=== PATIENT | male | born 1945 | race African-American/Black ===

== ENCOUNTER 2020-02-03 00:41 | Outpatient (CLI) | payer MEDICARE, SELFPAY ==
[2020-02-04 03:00] LABS: SARS-CoV-2 RNA PCR Negative
== END 2020-02-03 00:42 | disposition home or self-care (01) ==
LOC: ANHCOVIDDT 00:42
PROVIDERS: PCP Internal Medicine; Visit Provider Internal Medicine Gastroenterology
DX: Z01.812 Encounter for preprocedural laboratory examination (principal); Z20.828 Contact with and (suspected) exposure to other viral communicable diseases
CPT/HCPCS: 87635; C9803; U0003

== ENCOUNTER 2020-02-05 01:16 | Day surgery (SDC) | payer MEDICARE, SELFPAY ==
[2020-02-01 14:57] VITALS: BMI 15.3
[2020-02-05 09:46] VITALS: BP 155/77; PULSE 61; RESP 20; TEMP 36.4; O2SAT 96; BMI 19.3
--- NOTE | 2020-02-05 09:59 | WPDANESEPPF ---
Anes - Initial Pre Proc Eval Procedure: Operation Date: 02/05/20 11:00 Proposed Procedures p Screening Colonoscopy - Clovis Holland MD Date/Time: 02/05/20 09:59 Surgeon: lCovis Holland MD Pre Op Diagnosis: neoplasm screening Patient Data Age: 75 Gender: M Height: 6 ft 6 in Weight: 76 kg Last Vital Signs Temp 36.4 C L 02/05/20 09:46 Pulse 61 02/05/20 09:46 Resp 20 02/05/20 09:46 BP 155/77 H 02/05/20 09:46 Pulse Ox 96 02/05/20 09:46 Allergies Allergy/AdvReac Type Severity Reaction Status Date / Time No Known Allergies Allergy Unknown Verified 02/05/20 09:45 Home Medications Medication Instructions Recorded Confirmed Type latanoprost 1 drp DAILY 02/01/20 02/01/20 History Patient hx anesthesia problems: none Family hx anesthesia problems: none PMFSH Past Medical History Medical History Chronic kidney disease, stage 3 (moderate) Chronic kidney disease, stage 3 (moderate) (01/07/19) Elevated prostate specific antigen [PSA] Essential (primary) hypertension Primary open-angle glaucoma, bilateral, stage unspecified Unspecified iridocyclitis Family History Family History Father Carcinoma of colon Patient's father is Family history of malignant neoplasm Mother Patient's mother is Family history unknown Social History Social History Smoking packs per day: 0.5 Smoking cigarettes per day: 10.0 Years smoked: 50 Smoking pack-years: 25.00 Smoking status: Current every day smoker Tobacco type: cigarettes Alcohol intake: current Substance use: unknown Substance use type: does not use Living arrangements: with family Spiritual care concerns: No Anes - Eval Final PreProcedure Day of Procedure 02/05/20 09:59 Patient weight: thin Heart: regular rate and rhythm Lungs: clear to auscultation Airway: Mallampati scale class II and special considerations poor dentition Neurological: alert and oriented Last oral intake: >/= 8 hours ASA classification: III Emergent: no Anesthetic plan: proceed Anesthesia type and monitoring: general GIVS and standard monitoring Informed Consent: The patient's anesthetic plan and its attendant risks and benefits were discussed with the patient/family/POA. Questions were solicited and answers provided to the satisfaction of the patient/family/POA.
[2020-02-05] MEDS: LACTATED RINGERS 1,000 ML 150 ML IV CONT (10:06)
--- NOTE | 2020-02-05 10:36 | PM.HPGS ---
History of Present Illness History of Present Illness Consent: Risks, benefits, and alternatives have been discussed and questions answered. Patient agrees to proceed with procedure. Chief complaint: neoplasm screening Narrative: Ulysses Lane is a 75 year old male here for first screening colonoscopy Review of Systems Constitutional: Constitutional: Denies headache(s) and Denies weakness Eyes: Eyes: Denies blurry vision ENT: Reports Normal hearing present, Denies headache(s) and Denies neck pain Cardiovascular: Cardiovascular: Denies chest pain and Denies dyspnea Respiratory: Respiratory: Denies dyspnea Gastrointestinal: Gastrointestinal: Reports no additional gastrointestinal complaints Genitourinary: Genitourinary: Denies dysuria Musculoskeletal: Musculoskeletal: Denies neck pain Integumentary/Breasts: Skin/Breast: Denies dry skin Neurologic: Reports Normal hearing present, Denies headache(s) and Denies weakness Psychiatric: Psychiatric: Denies anxiety Endocrine: Endocrine: Denies change in body appearance Hematologic/Lymphatic: Hematologic/Lymphatic: Denies easy bleeding Allergic/Immunologic: Allergic/Immunologic: Denies urticaria PMFSH Past Medical History Medical History Chronic kidney disease, stage 3 (moderate) Chronic kidney disease, stage 3 (moderate) (01/07/19) Elevated prostate specific antigen [PSA] Essential (primary) hypertension Primary open-angle glaucoma, bilateral, stage unspecified Unspecified iridocyclitis Family History Family History Father Carcinoma of colon Patient's father is Family history of malignant neoplasm Mother Patient's mother is Family history unknown Social History Social History Smoking packs per day: 0.5 Smoking cigarettes per day: 10.0 Years smoked: 50 Smoking pack-years: 25.00 Smoking status: Current every day smoker Tobacco type: cigarettes Alcohol intake: current Substance use: unknown Substance use type: does not use Living arrangements: with family Spiritual care concerns: No Meds Home Medications and Allergies Home Medications Medication Instructions Recorded Confirmed Type latanoprost 1 drp DAILY 02/01/20 02/01/20 History Allergies Allergy/AdvReac Type Severity Reaction Status Date / Time No Known Allergies Allergy Unknown Verified 02/05/20 09:45 Vital Signs Vital Signs - 24 hr 11/06/20 09:46 Temperature 97.5 F L Pulse Rate 61 Respiratory Rate 20 Blood Pressure 155/77 H Pulse Oximetry 96 Exam Const: General: comfortable and no acute distress HENMT: General nose exam: Normal nares present Eyes: General: appearance normal, both eyes and all related structures Neck: Neck: no JVD Resp: Auscultation: clear to auscultation bilaterally Cardio: Rate: regular rate Rhythm: regular rhythm GI: Inspection: non-distended GI Palp: Yes Soft to palpation Skin: General skin exam: normal color Neuro: General: gait normal Speech: normal speech Extrem: General: normal to inspection Psych: Mental Status: mental status grossly normal Assessment and Plan Assessment and plan (1) Colon cancer screening: Code(s): Z12.11 - Encounter for screening for malignant neoplasm of colon Status: Acute Assessment and Plan: will proceed with colonoscopy
[2020-02-05 11:07] VITALS: BP 133/82; PULSE 57; RESP 20; O2SAT 96
[2020-02-05 11:17] VITALS: BP 144/93; PULSE 64; RESP 20; O2SAT 96
[2020-02-05 11:27] VITALS: BP 154/94; PULSE 53; RESP 20; O2SAT 96
== END 2020-02-05 12:00 | disposition home or self-care (01) ==
PROVIDERS: PCP Internal Medicine; Visit Provider Internal Medicine Gastroenterology
PROC: 0DJD8ZZ Inspection of Lower Intestinal Tract, Via Natural or Artificial Opening Endoscopic (ICD-10-PCS; CPT 45378; principal; 2020-02-05 11:00)
DX: Z12.11 Encounter for screening for malignant neoplasm of colon (principal); D12.5 Benign neoplasm of sigmoid colon; D12.3 Benign neoplasm of transverse colon; I12.9 Hypertensive chronic kidney disease with stage 1 through stage 4 chronic kidney disease, or unspecified chronic kidney disease; N18.30 Chronic kidney disease, stage 3 unspecified; R97.20 Elevated prostate specific antigen [PSA]; H40.1130 Primary open-angle glaucoma, bilateral, stage unspecified; F17.210 Nicotine dependence, cigarettes, uncomplicated; Z80.0 Family history of malignant neoplasm of digestive organs
CPT/HCPCS: 45385; 88305; J2704; J7120

== ENCOUNTER 2020-08-10 12:58 | Outpatient (CLI) | payer MEDICARE, SELFPAY ==
--- NOTE | ~2020-08-10 | XR_ITS ---
XR chest 2V DATE: 08/10/2020 13:20 INDICATION: Abnormal weight loss TECHNIQUE: PA and lateral views COMPARISON: 11/10/2018 PA and lateral chest FINDINGS: Bilateral hyperinflation and relative flattening the diaphragm, consistent with COPD. No pu lmonary infiltrate or consolidation, pleural effusion or pulmonary vascular congestion or pneumothora x. Heart size is within normal range. Is aortic calcification. No hilar or mediastinal enlargement. Degenerative spurring of the thoracic spine. Diffuse osteopenia. IMPRESSION: COPD Reviewed, dictated and finalized at location A. IMPRESSION: COPD
== END 2020-08-10 12:59 | disposition home or self-care (01) ==
PROVIDERS: PCP Internal Medicine; Visit Provider Internal Medicine
DX: R63.4 Abnormal weight loss (principal); J44.9 Chronic obstructive pulmonary disease, unspecified
CPT/HCPCS: 71046

== ENCOUNTER 2020-08-15 08:55 | Outpatient (CLI) | payer MEDICARE, SELFPAY ==
--- NOTE | ~2020-08-15 | MR_ITS ---
EXAMINATION: MR brain/brain stem wo con DATE: 08/15/2020 10:06 INDICATION: Other amnesia. TECHNIQUE: Magnetic resonance imaging (MRI) of the brain and brainstem was performed without intraven ous contrast. Sequences included sagittal and axial T1-weighted FSE, axial diffusion-weighted FS EPI, axial T2*-weighted GRE, axial T2-weighted FLAIR Propeller, and axial T2-weighted Propeller. Apparent diffusion coefficient (ADC) maps were created. COMPARISON: None. FINDINGS: There are scattered areas of nonspecific increased T2-weighted signal intensity in the cere bral white matter. There is a small area of chronic cystic encephalomalacia in the left parietal lobe deep white matter. There is no intracranial hemorrhage, acute infarction, or abnormal intracranial m ass lesion. The ventricles are normal in size. There is mucosal thickening in the paranasal sinuses. There are likely changes of right ocular lens replacement surgery. There is a trace right mastoid eff usion. IMPRESSION: 1. Small area of chronic encephalomalacia in the left parietal lobe deep white matter. 2. Moderate nonspecific cerebral white matter disease, which likely represents chronic small vessel i schemic disease. Reviewed, dictated and finalized at location A. IMPRESSION: 1. Small area of chronic encephalomalacia in the left parietal lobe deep white matter. 2. Moderate nonspecific cerebral white matter disease, which likely represents chronic small vessel ischemic disease.
== END 2020-08-15 08:56 | disposition home or self-care (01) ==
PROVIDERS: PCP Internal Medicine; Visit Provider Internal Medicine
DX: R41.3 Other amnesia (principal); R90.82 White matter disease, unspecified; G93.89 Other specified disorders of brain
CPT/HCPCS: 70551

== ENCOUNTER 2020-10-17 14:11 | Outpatient (CLI) | payer MEDICARE, SELFPAY ==
--- NOTE | ~2020-10-17 | US_ITS ---
EXAMINATION: US arterial ankle brachial ind DATE: 10/17/2020 15:12 INDICATION: Right lower limb pain TECHNIQUE: Segmental pressures and plethysmographic and Doppler waveforms of the brachial and lower e xtremity arteries were obtained. COMPARISON: None. FINDINGS: Right and left brachial artery pressures of 151 mm Hg and 140 mm Hg, respectively, are concordant (no rmal difference <= 30 mmHg). The right ankle-brachial index (REJI) is 0.79 (normal >= 0.9-1.0). The right great toe-brachial index (TBI) is 0.51 (normal >= 0.65). Arterial Doppler waveforms demonstrate borderline delayed upstroke at the right posterior tibial artery with brisk systolic upstroke in the right dorsalis pedis artery. The left REJI is 1.05. The left TBI is 0.54. Arterial Doppler waveforms demonstrate brisk systolic pea ks of both the left posterior tibial and dorsalis pedis arteries. IMPRESSION: 1. Arterial occlusive disease to the bilateral lower limbs with mildly decreased bilateral TBIs and m ildly decreased right REJI. Reviewed, dictated and finalized at location A. IMPRESSION: 1. Arterial occlusive disease to the bilateral lower limbs with mildly decrease d bilateral TBIs and mildly decreased right REJI.
== END 2020-10-17 14:12 | disposition home or self-care (01) ==
LOC: ANHIMG 14:13
PROVIDERS: PCP Internal Medicine; Visit Provider Internal Medicine
DX: I77.1 Stricture of artery (principal)
CPT/HCPCS: 93922

== ENCOUNTER 2020-10-25 12:51 | Outpatient (CLI) | payer MEDICARE, SELFPAY ==
--- NOTE | 2020-10-25 | ECHO_ITS ---
Patient Info Name: Ulysses Lane Age: 75 years : 1945 Gender: Male Ht: 78 in Wt: 147 lbs BSA: 1.89 m2 HR: 50 bpm BP: 145 / 85 mmHg Heart Rhythm: Bradycardia Exam Date: 10/25/2020 1:16 PM Exam Location: [facility] Patient Status: Outpatient Admit Date: 10/25/2020 Staff Ordering Physician: ABDIRIZAK MILLER Furniture Sales Consultant: Vani Yap RDCS Attending Provider: ABDIRIZAK MILLER Exam Type: CA echo doppler w bubble study Study Info Indications - CVA Complete two-dimensional, color flow and Doppler transthoracic echocardiogram is performed with agitated saline. BUBBLE STUDY LAST IMAGE. Contrast/Agitated Saline Contrast/Ag. Saline: Agitated Saline Amount: --- ml Administered By: Susy Guerra RN New IV Access: Dorsum of Hand and Left Summary 1. Left ventricular chamber dimension is normal. 2. Left ventricular systolic function is normal, estimated at 60-65%. 3. The left ventricular diastolic function is grade II diastolic dysfunction. 4. E/e' 11 is mildly elevated. 5. Left atrial chamber dimension is mildly enlarged. 6. Right atrial chamber dimension is mildly enlarged. 7. There is mild aortic valve sclerosis. 8. There is mild to moderate aortic valve regurgitation. 9. There is trace mitral valve regurgitation. 10. There is trace tricuspid valve regurgitation. 11. No pulmonary hypertension, estimated pulmonary arterial systolic pressure is 23 mmHg. Left Ventricle E/e' 11 is mildly elevated. Left ventricular chamber dimension is normal. Left ventricular systolic function is normal, estimated at 60-65%. The left ventricular diastolic function is grade II diastolic dysfunction. Right Ventricle Right ventricular chamber dimension is normal. Right ventricular systolic function is normal. Left Atria Left atrial chamber dimension is mildly enlarged. Right Atria Right atrial chamber dimension is mildly enlarged. Atrial Septum Agitated saline injection opacified right cardiac chambers without shunt to left cardiac chambers. Intact interatrial septum visualized by agitated saline imaging. Aortic Valve The aortic valve is trileaflet. There is mild aortic valve sclerosis. There is no aortic valve stenosis. There is mild to moderate aortic valve regurgitation. Pulmonic Valve There is no pulmonic regurgitation. Mitral Valve There is no mitral valve stenosis. There is trace mitral valve regurgitation. Tricuspid Valve There is trace tricuspid valve regurgitation. No pulmonary hypertension, estimated pulmonary arterial systolic pressure is 23 mmHg. Pericardium/Pleural There is no pericardial effusion. Inferior Vena Cava Normal inferior vena cava with >50% collapse upon inspiration consistent with normal right atrial pressure, 5 mmHg. Aorta The aortic root size at the sinus of Valsalva is normal. Left Ventricular Outflow Tract Name Value Normal LVOT 2D LVOT Diameter 2.2 cm LVOT Doppler LVOT Peak Gradient 4 mmHg LVOT Mean Gradient 2 mmHg LVO
== END 2020-10-25 12:52 | disposition home or self-care (01) ==
PROVIDERS: PCP Internal Medicine
DX: I63.9 Cerebral infarction, unspecified (principal); I34.0 Nonrheumatic mitral (valve) insufficiency
CPT/HCPCS: 93306; 96375

== ENCOUNTER 2020-11-01 11:37 | Outpatient (CLI) | payer MEDICARE, SELFPAY ==
--- NOTE | ~2020-11-01 | US_ITS ---
EXAMINATION: US carotid duplex BI DATE: 11/01/2020 12:15 INDICATION: Left parietal lobe infarct. Cerebrovascular accident. TECHNIQUE: Grayscale, color Doppler, and pulsed Doppler images of the cervical carotid arteries were obtained. The degree of vessel stenosis is placed in one of the following categories: normal, <50%, 5 0-69%, >=70% but less than near-occlusion, near-occlusion, or total occlusion. Note that percent sten osis relative to normal distal artery lumen diameter is indirectly measured from velocity measurement s as described by Rodney, et al. Radiology 2003; 229:340-346. COMPARISON: None. FINDINGS: RIGHT: The right common carotid artery (CCA) peak systolic velocity (PSV) is 97 cm/s. The right internal car otid artery (ICA) PSV is 52 cm/s. The right ICA end-diastolic velocity (EDV) is 14 cm/s. The right IC A/CCA PSV ratio is 0.5. Grayscale and color Doppler images yield an estimate of <50% diameter reducti on from plaque in the ICA. There is antegrade flow in the right vertebral artery. LEFT: The left CCA PSV is 77 cm/s. The left ICA PSV is 42 cm/s. The left ICA EDV is 14 cm/s. The left ICA/C CA PSV ratio is 0.5. Grayscale and color Doppler images yield an estimate of <50% diameter reduction from plaque in the ICA. There is antegrade flow in the left vertebral artery. IMPRESSION: 1. <50% stenosis in the right internal carotid artery. 2. <50% stenosis in the left internal carotid artery. Reviewed, dictated and finalized at location A.
== END 2020-11-01 11:38 | disposition home or self-care (01) ==
PROVIDERS: PCP Internal Medicine; Visit Provider Nurse Practitioner Gerontology
DX: I63.9 Cerebral infarction, unspecified (principal); I65.23 Occlusion and stenosis of bilateral carotid arteries
CPT/HCPCS: 93880

== ENCOUNTER 2020-12-06 14:30 | Outpatient (RCR) | payer MEDICARE, SELFPAY ==
--- NOTE | 2020-11-08 16:42 | STOPEVAL ---
Speech Therapy Initial Evaluation: Thank you for referring Ulysses Lane to [facility].? The patient is scheduled to be seen for therapy?2x/week for 4 weeks. Please review, sign, date and return this plan of care KYRA. I agree with and certify that the following plan of care is medically necessary. Referring Physician Date Attending Provider: Janet Bills, STAPLE PROCESSING MACHINE OPERATOR Outpatient Past Medical History Neurological History Hx Dementia Yes Hx Other Neurological Disorders Yes: per pt's sister, pt has dementia Cardiovascular History Hx Hypertension Yes Hx Peripheral Vascular Disease Yes Respiratory History Hx Respiratory Disorders No Significant History Gastrointestinal History Hx Gastrointestinal Disorders No Significant History Genitourinary History Hx Benign Prostatic Hyperplasia Yes Hx Other Genitourinary Disorders Yes: stage 3 kidney disease Musculoskeletal History Hx Other Musculoskeletal Disorders Yes: muscular ached Hematological History Hx Hematological Disorders No Significant History Endocrine History Hx Endocrine Disorders No Significant History HEENT History Hx Glaucoma Yes Integumentary History Hx Skin Disorders No Significant History Reproductive History Hx Reproductive Disorders No Significant History Psychosocial History Hx Psychiatric Disorders No Significant History Pain History History of Any Previous or Ongoing No Significant History Instance of Pain Anesthesia History Hx Anesthesia Reactions No Significant History Prior Level of Function Home Setting Home Type House Cargiver Responsibilities Comment Pt lives with his sister. Sister does cooking, cleaning, shopping, & driving. 1 Niece lives there as well. Prior Cognition/Communication Prior Cognitive Function Memory Impaired Comments Additional Prior Level of Function pt expresses that he has lost Comments 90% Language Evaluation Verbal Expression Automatic Cued Speech (% Accuracy (0-100 100 )) Open Ended Cued Speech (% Accuracy (0- 100 100)) WH Questions (% Accuracy (0-100)) 80 Confrontational Naming (% Accuracy (0- 90 100)) Confrontational Naming Comments simple level naming; slow/ delayed retrieval Stating Object Function (% Accuracy (0- 80 100)) Comments Related to Verbal Expression Pt exhibited severely impaired divergent naming ability. Cognitive Evaluation Orientation/Memory Assessment Immediate Memory 30 Query Text:% Accuracy Recent Memory 80 Query Text:% Accuracy Remote Memory
--- NOTE | 2020-11-24 15:21 | PCSTNOTE ---
Patient called & cancelled scheduled appointment this date due to illness.
--- NOTE | 2020-12-01 07:50 | PCSTNOTE ---
On 11-29-20, pt did not show for scheduled appt
--- NOTE | 2020-12-01 13:37 | PCSTNOTE ---
Patient did not show up for scheduled appointment this date.
--- NOTE | 2020-12-08 14:00 | PCSTNOTE ---
Patient did not show up for scheduled appointment this date which was his third or fourth no show or cancellation. His sister was called and notified that he would be discharged at this time in accordance with the attendance policy. She verbalized ok .
--- NOTE | 2020-12-08 14:03 | PCSTNOTE ---
SPEECH THERAPY DISCHARGE: Attending Provider: Janet Bills, POWER CUTTING MACHINE OPERATOR Patient:Ulysses Lane Date of :1945 On initial evaluation in ST the pt presented with the following: This 75 year old presents for a speech therapy with a diagnosis of memory loss. Pt was brought to evaluation by his sister who opted to leave and not attend evaluation. She stated he has dementia but this problem may be related to a CVA but she is unsure. When the pt was asked if he had a stroke, he replied, I don't even know what that is . Pt was tested using portions of the [place] Information Processing Assessment and portions of the [place] Diagnostic Aphasia Evaluation. Overall, results revealed severe immediate & remote memory deficits but mild deficit in other areas of memory/orientation such as recent memory/temporal orientation; moderate impairment was exhibited in biographical & environmental orientation. Pt demonstrated mildly impaired ability to solve simple problems but severe decline in sequencing. Categorization and sorting were within functional limits. Processing was found to be delayed as pt was noted to have abnormally long pauses after questions and instructions. Accuracy of questioning was mildly impaired. Processing may be exacerbated by anomia which was also exhibited. ST was recommended 2x/week for 4 weeks; however, upon discussing treatment options with the pt, he stated he was not interested in returning for treatment. When the pt's sister returned, results and recommendations were discussed with her. She was also informed the pt stated he did not wish to return. She became visibly annoyed with the pt. Pt remained silent as she attempted to persuade him. In the end ST sessions were scheduled. She was instructed to discuss with him the potential benefits of returning to . She was also informed that pt's outcomes will potentially suffer if he lacks interest. The pt returned inconsistently during the 4 weeks of treatment which focused in verbal expression as well as memory/orientation, problem solving, and organizational thought. Very limited progression was exhibited. Pt did not attend the re evaluation appointment. His sister was called and notified that he would be discharged due to lack of attendance and limited progress. She stated, ok . Patient will be discharged at this time. Patient?s initial visit was on 11/08/2020 13:30 and he had a total of 4 visits. The goals have been partially met. Thank you for referring this patient to [facility]. Please review, sign, date and return this discharge summary KYRA. I have been updated about the patient's current status and I agree with discharge from the above service at this time. Referring Physician Date
== END 2020-12-08 17:45 | disposition home or self-care (01) ==
LOC: ANHST 14:30
PROVIDERS: PCP Internal Medicine; Visit Provider Nurse Practitioner Gerontology
DX: R41.3 Other amnesia (principal); R48.8 Other symbolic dysfunctions
CPT/HCPCS: 92523; 97129; 97130

== ENCOUNTER 2021-08-08 12:17 | Outpatient (RCR) | payer MEDICARE, SELFPAY ==
--- NOTE | 2021-08-09 11:19 | STOPEVAL ---
Thank you for referring Ulysses Lane to [facility].? Speech Therapy was indicated and offered however patient declined several times. No further Speech Therapy will be attempted. I agree with and certify that the following plan of care is medically necessary. Referring Physician Date Attending Provider: Janet Bills, GALVANIZER Referring Provider: Janet Bills, GALVANIZER Therapy Assessment Status Assessment Status Assessment Status Evaluation Outpatient Past Medical History Neurological History Hx Dementia Yes Hx Other Neurological Disorders Yes: per pt's sister, pt has dementia Cardiovascular History Hx Hypertension Yes Hx Peripheral Vascular Disease Yes Respiratory History Hx Respiratory Disorders No Significant History Gastrointestinal History Hx Gastrointestinal Disorders No Significant History Genitourinary History Hx Benign Prostatic Hyperplasia Yes Hx Other Genitourinary Disorders Yes: stage 3 kidney disease Musculoskeletal History Hx Other Musculoskeletal Disorders Yes: muscular ached Hematological History Hx Hematological Disorders No Significant History Endocrine History Hx Endocrine Disorders No Significant History HEENT History Hx Glaucoma Yes Integumentary History Hx Skin Disorders No Significant History Reproductive History Hx Reproductive Disorders No Significant History Psychosocial History Hx Psychiatric Disorders No Significant History Pain History History of Any Previous or Ongoing No Significant History Instance of Pain Anesthesia History Hx Anesthesia Reactions No Significant History Evaluation Information Problem Diagnosis CVA Subjective Information Patient has history of Query Text:As Reported By Patient/ Vascular Dementia and CVA. Family When asked why he was here today, he stated, I don't know. Pain Assessment Timing of Pain Assessment Timing of Pain Assessment Assessment Self Report Self Report Pain Level 0 Pain Score Pain Score 0: Self Report Language Evaluation Auditory Comprehension Body Part Identification (% Accuracy (0- 100 100)) Object Identification (% Accuracy (0-100 100 )) Picture Identification (% Accuracy (0- 100 100)) Simple Yes/No Questions (% Accuracy (0- 100 100)) Moderate Yes/No Questions (% Accuracy (0 100 -100)) Complex Yes/No Questions (% Accuracy (0- 80 100)) Auditory Comprehension One-Step 100 Directives (% Accuracy (0-100)) Auditory Comprehension of Two-Step 100 Directives (% Accuracy (0-100)) Auditory Comprehension of Complex 80
== END 2021-08-09 14:00 | disposition home or self-care (01) ==
LOC: ANHST 12:17
PROVIDERS: PCP Internal Medicine; Referring Provider Nurse Practitioner Gerontology; Visit Provider Nurse Practitioner Gerontology
DX: I63.9 Cerebral infarction, unspecified (principal); F01.50 Vascular dementia, unspecified severity, without behavioral disturbance, psychotic disturbance, mood disturbance, and anxiety; R41.89 Other symptoms and signs involving cognitive functions and awareness
CPT/HCPCS: 92523

== ENCOUNTER 2021-11-02 11:08 | Outpatient (CLI) | payer MEDICARE, SELFPAY ==
--- NOTE | ~2021-11-02 | US_ITS ---
EXAMINATION:US venous doppler LE LT INDICATION:Left leg swelling TECHNIQUE: Multiple grayscale, color flow and Doppler images of the left lower extremity deep venous systems were obtained and reviewed. COMPARISON:No prior studies for comparison. FINDINGS: The common femoral, superficial femoral and popliteal veins demonstrate normal respiratory variation, augmentation and compressibility. Color flow is also seen within the posterior tibial, pe roneal, greater saphenous and profunda veins. IMPRESSION: 1: No lower extremity deep venous thrombosis. Reviewed, dictated and finalized at location A.
--- NOTE | ~2021-11-02 | XR_ITS ---
EXAMINATION: XR ankle LT min 3V, XR foot LT min 3V DATE: 11/02/2021 19:11 INDICATION: Left foot and ankle pain TECHNIQUE: 1. Anteroposterior, mortise, additional oblique and lateral view of the left ankle were obtained. 2. Dorsoplantar, two oblique and lateral views of the left foot were obtained. COMPARISON: None. FINDINGS: Alignment of the left foot and ankle is normal. No fracture or osteochondral lesion. 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 No erosions to suggest an inflammatory arthrit is. Small Achilles and plantar calcaneal spurs. No ankle joint effusion. Prominent soft tissue swelli ng circumferentially about the left ankle and extending over the dorsum of the hindfoot. IMPRESSION: 1. 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 No acute osseous abnormal ities. Reviewed, dictated and finalized at location A. IMPRESSION: 1. 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 No acute osseous abnormalities.
[2021-11-02 13:08] LABS: Uric Acid 4.2 mg/dL (3.5-8.5)
== END 2021-11-02 11:09 | disposition home or self-care (01) ==
PROVIDERS: PCP Internal Medicine; Visit Provider Nurse Practitioner
DX: M19.072 Primary osteoarthritis, left ankle and foot (principal); M10.9 Gout, unspecified; R22.42 Localized swelling, mass and lump, left lower limb
CPT/HCPCS: 36415; 73610; 73630; 84550; 93971

== ENCOUNTER 2021-11-21 15:30 | Outpatient (RCR) | payer MEDICARE, SELFPAY ==
--- NOTE | 2021-10-19 08:59 | PTOPEVAL ---
PHYSICAL THERAPY EVALUATION AND PLAN OF CARE Thank you for referring Ulysses Lane to [facility].? The patient is scheduled to be seen for therapy? 1x/week for 5weeks. Please review, sign, date and return this plan of care KYRA. I agree with and certify that the following plan of care is medically necessary. Referring Physician Date Attending Provider: Brian Bustamante, DO Diagnosis unsteady on feet Additional Evaluation Detail A and O x2 (oriented to person and place; required assist for year and does not know situation). [facility]. Subjective Information Ulysses is here today to Query Text:As Reported By Patient/ address balance deficits. Family States he is not sure why he is here except that maybe he is wobbling at home. States he has not fallen. Prior Level of Function Activity Level (Last 3 Months) Occupation retired from [employer]ance Right Cooking No Cleaning Yes Laundry Yes Shopping No Driving No Home Setting Home Type House Environmental Barriers Stairs, 2-4 Living Situation With Relatives Cargiver Responsibilities Comment lives with sister Mobility Assistive Devices (Used Last 3 None Months) Pain Assessment Timing of Pain Assessment Timing of Pain Assessment Assessment Self Report Self Report Pain Level 0 Pain Score Pain Score 0: Self Report Balance Assessment Gonzales Balance Assessment Sitting to Standing Independent w/out Hands Unsupported Stance Ability Safely- 2 minutes Sitting Unsupported, Feet on Floor Safely- 2 minutes Standing to Sitting Safely, Minimal Hand Use Transfer Ability Safely, Minimal Hand Use Unsupported Stance- Eyes Closed Supervision, 10 seconds Unsupported Stance- Feet Together Independent, 1 minute Reaching Forward while Standing Safely, 5 inches client service supervisor Object From Floor Supervision Look Behind Shoulder - Standing Turns Sideways Only Turning 360 Degrees Turns Bilateral, < 4 secs Unsupported Stance, Alternating Feet on (I)- 8 Steps in 20 secs Stair Unsupported Tandem Stance Small Step- 30 seconds Unilateral Leg Stance Lifts Leg/Holds > 3 secs GONZALES Balance Evaluation Total Score (/56 47 points) Time Up Go (TUG) Timed Up and Go Test (TUG) (Seconds) 13 Assistive Devices None 5 Time Sit to Stand Time in
--- NOTE | 2021-11-21 16:44 | PTOPEVAL ---
PHYSICAL THERAPY PROGRESS REPORT AND DISCHARGE SUMMARY. Thank you for referring Ulysses Lane to [facility].? The patient is to be discharged from skilled therapy services at this time. Please review, sign, date and return this plan of care KYRA. I agree with and certify that the following plan of care is medically necessary. Referring Physician Date Attending Provider: Brian Bustamante DO *PT Outpatient Evaluation Start: 10/19/21 Evaluation Information Diagnosis unsteady on feet Subjective Information Pt states his exercises are Query Text:As Reported By Patient/ going well, he reports doing Family them twice daily. He states he is less wobbly when walking . He declines having any falls Pain Assessment Pain Score 0: Self Report Balance Assessment Gonzales Balance Assessment GONZALES Balance Evaluation Total Score (/56 50/56 Comments Initially: 47/56 11/21/21: 50/56 Time Up Go (TUG) Timed Up and Go Test (TUG) (Seconds) 17 Assistive Devices None Comments Initially: 13s 11/21/21: 17s 5 Time Sit to Stand Time in Seconds 29 5 Time Sit to Stand Comments Initially: 21.71s, required Query Text:Normative Data: If Greater cues to continue performing Than 15 Seconds, 74% Increase Risk for test; would forget Recurrent Falls instructions and required cues 11/21/21: 29s, cues requires to continue performing test Gait Assessment Ambulation Assistive Devices None Gait Pattern Crouched Gait Other Gait Observations lack of terminal hip extension and knee extension during ambulation 2 Minute Walk Total Distance Walked (feet) 250 2 Minute Walk Gait Speed Score (feet/s) 2.08 2 Minute Walk Test Comments Initially: 351ft 11/21/21: 250ft Stair Climbing Assessment Stair Climbing Assistive Devices Railings Technique Alternating Steps Stair Climbing Direction Both Up and Down Stair Climbing Ability Independent Safety Assessment Factors Affecting Safety Confusion/Disorientation PT Clinical Summary Ulysses presents to therapy today for his progress report following 5 visits of skilled therapy to treat his diagnosis of unsteadiness on feet. Today he demonstrates an increased time needed to complete the 5xSTS and TUG, he also albert
== END 2021-11-22 11:13 | disposition home or self-care (01) ==
LOC: ANHPT 15:30
PROVIDERS: PCP Internal Medicine; Visit Provider Internal Medicine
DX: R26.81 Unsteadiness on feet (principal)
CPT/HCPCS: 97110; 97112; 97162; 97530

== ENCOUNTER 2022-06-22 13:25 | Outpatient (CLI) | payer MEDICARE, SELFPAY ==
--- NOTE | ~2022-06-22 | CT_ITS ---
EXAMINATION: CT brain wo con DATE: 06/22/2022 13:54 INDICATION: Dizziness TECHNIQUE: Computed tomography (CT) of the head was performed without intravenous contrast. The mA wa s adjusted according to patient size. Iterative reconstruction technique was employed. Exam dose: 60 5.33 mGy-cm total exam DLP. COMPARISON: 08/15/2020 MRI brain/brainstem FINDINGS: There is intracranial cerebral atherosclerosis. There is nonspecific diminished attenuation cerebral white matter, likely due to chronic small vessel ischemic changes. There is moderate cerebral and cerebellar volume loss. No intracranial mass lesion or hemorrhage or cerebrovascular accident, midline shift or mass effect e ffect is noted. No subdural or epidural hematoma. No fracture or bone destruction of the cranial vault. There is mild soft tissue thickening of the ethmoid air cells and left maxillary sinus The paranasal sinuses are otherwise unremarkable. IMPRESSION: Cerebral atherosclerosis and chronic small vessel ischemic changes of the cerebral white matter Moderate cerebral and cerebellar atrophy No acute intracranial finding Reviewed, dictated and finalized at Location A. Reviewed, dictated and finalized at location A.
== END 2022-06-22 13:26 | disposition home or self-care (01) ==
PROVIDERS: PCP Internal Medicine; Visit Provider Nurse Practitioner Family
DX: R42 Dizziness and giddiness (principal); I67.2 Cerebral atherosclerosis
CPT/HCPCS: 70450

== ENCOUNTER 2022-07-08 13:42 | Emergency (ER) | payer MEDICARE, SELFPAY ==
--- NOTE | ~2022-07-08 | CT_ITS ---
EXAMINATION: CT lumbar spine wo con DATE: 07/08/2022 15:40 INDICATION: low back pain . TECHNIQUE: Computed tomography (CT) of the lumbar spine was performed without intravenous contrast. A utomated exposure control and iterative reconstruction technique were employed. The dose-length produ ct was 463.87 mGy-cm. COMPARISON: CT abdomen and pelvis 02/22/2015. FINDINGS: 5 nonrib-bearing lumbar-type vertebral bodies. Decreased mineralization. Stable moderate he ight loss at L4. Multilevel stable concave endplate deformities as can be seen with osteoporosis. Ped icles intact. Normal vertebral body alignment. Multilevel degenerative disc changes with large bridgi ng osteophytes. Multilevel moderate facet arthropathy. Mild central canal stenosis at L3-4. Moderate bilateral neural foraminal narrowing at L4-5. 3.4 cm fusiform abdominal aortic aneurysm. IMPRESSION: No acute fracture or traumatic malalignment in the lumbar spine. 3.4 cm abdominal aortic aneurysm, re commend follow-up ultrasound aorta in 3 years. Reviewed, dictated and finalized at location K. IMPRESSION: No acute fracture or traumatic malalignment in the lumbar spine. 3.4 cm abdomin al aortic aneurysm, recommend follow-up ultrasound aorta in 3 years.
[2022-07-08 13:44] VITALS: BP 162/89; PULSE 60; RESP 18; TEMP 36.5; O2SAT 98
[2022-07-08 13:53] VITALS: BP 155/82; PULSE 60; RESP 18; O2SAT 100
[2022-07-08 14:37] VITALS: BP 148/81; PULSE 55; RESP 18; O2SAT 100
--- NOTE | 2022-07-08 15:20 | ED.GENADULT ---
HPI - General Adult General Chief complaint: Back Pain/Injury Stated complaint: low back pain Time Seen by Provider: 07/08/22 14:27 History of Present Illness HPI narrative: 77-year-old male presented to the ED for evaluation of low back pain after having a fall into his chair. Patient was at home when he began complaining of low back pain. Patient states he does have increased pain with ambulation and movement of his right leg. Patient denies striking his head denies loss of consciousness. Patient had told family that he did not have any falls but he told me that he felt into the chair while sitting down. Related Data Home Medications Medication Instructions Recorded Confirmed cyanocobalamin (vitamin B-12) 1,000 mcg PO DAILY 04/03/21 07/19/22 1,000 mcg tablet memantine 10 mg tablet 10 mg PO BID 04/03/21 07/19/22 donepezil 5 mg tablet 5 mg PO QHS 08/24/21 07/19/22 aspirin 81 mg tablet,delayed 81 mg PO DAILY 06/14/22 07/19/22 release (Adult Aspirin Regimen) cetirizine 10 mg tablet 10 mg PO DAILY PRN 06/14/22 07/19/22 ginkgo biloba leaf extract 120 tablet PO 06/14/22 07/19/22 mg-choline bitartrate 110 mg tablet ([employer] Memory Support) Allergies Allergy/AdvReac Type Severity Reaction Status Date / Time No Known Allergies Allergy Unknown Verified 07/19/22 13:05 Review of Systems Review of Systems: All systems reviewed & are unremarkable except as noted in HPI and below PMFSH Past Medical History Medical History Chronic kidney disease, stage 3 (moderate) Chronic kidney disease, stage 3 (moderate) (01/07/19) Colon cancer screening Elevated prostate specific antigen [PSA] Essential (primary) hypertension Primary open-angle glaucoma, bilateral, stage unspecified Unspecified iridocyclitis Family History Family History Father Carcinoma of colon Patient's father is Family history of malignant neoplasm Mother Patient's mother is Family history unknown Social History Social History Years smoked: 50 Smoking status: Current every day smoker Tobacco type: cigarettes Alcohol intake: current Alcohol use details: social Substance use: never Substance use type: does not use Lack of Transportation: YES Lack of Food: Never True Current Housing: I Have Housing Concerned About Future Housing: No Difficulty Paying Gas/Electric Bills: No Difficulty Paying for Meds: No Currently Unemployed: No Education: High School Diploma/GED Difficulty w/ Childcare or Family Care: No Living arrangements: with family Spiritual care concerns: No Exam Narrative: APPEARANCE: Well appearing, no pain, no distress, well-nourished. HEAD: normocephalic, atraumatic. EYES: PERRLA/EOMI, conjunctivae clear. THROAT: Pharynx clear, no exudate. NECK: Supple. No adenopathy, no masses. RESPIRATORY: Airway patent, respirations nonlabored. Clear to auscultation bilaterally, no rales, rhonchi, wheezing. CARDIOVASCULAR: Regular rate and rhythm without murmurs rubs or gallops. ABDOMINAL: Soft, nontender, nondistended, normal bowel sounds MUSCULOSKELETAL: Decreased range of motion of right leg secondary to back pain NEURO: Alert. Cranial nerves II through XII intact. Patient denies any numbness or weakness neurologically intact SKIN: Warm, dry. Normal Color Course Course Emergency Course: 77-year-old male presenting to ED for low back pain. CT lumbar spine was ordered to rule out compression fracture. CTs were negative for acute fracture. Patient had some minor improvement with medication. Patient was willing to attempt to walk with a walker. Patient was able to ambulate at his baseline with no issues. Patient and family were updated on the results of the imaging and on the need for follow-up for
[2022-07-08 16:09] VITALS: BP 161/87; PULSE 60; RESP 18; O2SAT 100
[2022-07-08] MEDS: HYDROcodone/acetaminophen (*CRX) 5-325 MG TABLET 1 TAB PO (16:10)
[2022-07-08 18:02] VITALS: BP 165/84; PULSE 59; RESP 20; O2SAT 99
== END 2022-07-08 19:43 | disposition home or self-care (01) ==
PROVIDERS: Emergency Provider Emergency Medicine; PCP Internal Medicine
DX: S39.92XA Unspecified injury of lower back, initial encounter (principal); I12.9 Hypertensive chronic kidney disease with stage 1 through stage 4 chronic kidney disease, or unspecified chronic kidney disease; N18.30 Chronic kidney disease, stage 3 unspecified; Z79.82 Long term (current) use of aspirin; F17.210 Nicotine dependence, cigarettes, uncomplicated; I71.40 Abdominal aortic aneurysm, without rupture, unspecified; W18.39XA Other fall on same level, initial encounter
CPT/HCPCS: 72131; 99284; A9270

== ENCOUNTER 2022-07-22 18:55 | Emergency (ER) | payer MEDICARE, SELFPAY ==
--- NOTE | 2022-07-22 19:05 | ED.BACK ---
HPI - Back Pain/Injury General Chief Complaint: Back Pain/Injury Stated Complaint: back pain Time Seen by Provider: 07/22/22 19:05 Source: patient Mode of arrival: ambulatory Limitations: no limitations History of Present Illness HPI Narrative: patient is a 77-year-old male that presents with low back pain after potential fall on 07/08. Patient was seen in the ED the day of the fall and had a CT of his spine done with no fractures identified. Patient was given Flexeril and Brigantine. Patient saw primary care provider 07/19 and had scripts refilled. Patient has been going to physical therapy for 1 week, but still reports pain is severe. per sister he has been taking Flexeril, Brigantine, ibuprofen but still stating is having pain. concern for potential kidney or urinary involvement, denies any blood in his urine, burning with urination with increased frequency. patient still able to ambulate unassisted, bend over and stand back up without assistance. denies any fever, pain shooting down legs, or loss of bowel or bladder MD elicited complaint: back pain Related Data Home Medications Medication Instructions Recorded Confirmed cyanocobalamin (vitamin B-12) 1,000 mcg PO DAILY 04/03/21 07/22/22 1,000 mcg tablet memantine 10 mg tablet 10 mg PO BID 04/03/21 07/22/22 donepezil 5 mg tablet 5 mg PO QHS 08/24/21 07/22/22 aspirin 81 mg tablet,delayed 81 mg PO DAILY 06/14/22 07/22/22 release (Adult Aspirin Regimen) cetirizine 10 mg tablet 10 mg PO DAILY PRN Congestion 06/14/22 07/22/22 ginkgo biloba leaf extract 120 1 tablet PO DAILY 06/14/22 07/22/22 mg-choline bitartrate 110 mg tablet ([facility]) docusate sodium 100 mg capsule 100 mg PO DAILY 07/22/22 07/22/22 (Colace) Allergies Allergy/AdvReac Type Severity Reaction Status Date / Time No Known Allergies Allergy Unknown Verified 07/22/22 19:08 Review of Systems Review of Systems: All systems reviewed & are unremarkable except as noted in HPI and below Constitutional: Constitutional: Denies body ache(s), Denies chills, Denies fatigue, Denies fever(s), Denies headache(s), Denies malaise and Denies weakness Eyes: Eyes: Denies blurry vision, Denies irritation and Denies loss of vision ENT: Denies otalgia, Denies headache(s), Denies nasal discharge, Denies sinus pain and Denies sore throat Cardiovascular: Cardiovascular: Denies chest pain, Denies irregular heart rhythm and Denies dyspnea Respiratory: Respiratory: Denies dyspnea Gastrointestinal: Gastrointestinal: Denies abdominal pain, Denies melena, Denies hematochezia, Denies diarrhea, Denies nausea and Denies vomiting Musculoskeletal: Musculoskeletal: Reports back pain, Denies myalgias and Denies arthralgias Integumentary/Breasts: Skin/Breast: Denies pruritus and Denies rash Neurologic: Denies headache(s), Denies loss of vision and Denies weakness Psychiatric: Psychiatric: Reports no additional psychiatric complaints Endocrine: Endocrine: Denies fatigue PMF Past Medical History Medical History Chronic kidney disease, stage 3 (moderate) Chronic kidney disease, stage 3 (moderate) (01/07/19) Colon cancer screening Elevated prostate specific antigen [PSA] Essential (primary) hypertension Primary open-angle glaucoma, bilateral, stage unspecified Unspecified iridocyclitis Family History Family History Father Carcinoma of colon Patient's father is Family history of malignant neoplasm Mother Patient's mother is Family history unknown Social History Social History Years smoked: 50 Smoking status: Current every day smoker Tobacco type: cigarettes Alcohol intake: current Alcohol use details: social Substance use: never Substance use type: does not use Lack of Transportation: Y
[2022-07-22 19:18] VITALS: BP 162/87; PULSE 56; RESP 16; TEMP 35.9; O2SAT 99
== END 2022-07-22 19:39 | disposition home or self-care (01) ==
PROVIDERS: Emergency Provider Nurse Practitioner Family; PCP Family Medicine
DX: M54.50 Low back pain, unspecified (principal); I12.9 Hypertensive chronic kidney disease with stage 1 through stage 4 chronic kidney disease, or unspecified chronic kidney disease; N18.30 Chronic kidney disease, stage 3 unspecified; F17.210 Nicotine dependence, cigarettes, uncomplicated
CPT/HCPCS: 81003; 99213; G0463

== ENCOUNTER 2022-08-07 14:30 | Outpatient (RCR) | payer MEDICARE, SELFPAY ==
--- NOTE | 2022-07-17 14:58 | PTOPEVAL1 ---
Assessment and note entered by Kat Vinson, PT Evaluation Information Assessment Status Evaluation Diagnosis dizziness and giddiness/ unsteady walking Onset about one month ago Subjective Information Ulysses has dementia; caregiver for pt, Dory reports: he has swaying when he walks, reports he is unsteady; has had a few falls in the past 2 months; have a wheeled walker, but he will not use it; goes 3 days/wk to [facility]-- does some exercises and activities there; has a [employer] membership--was walking track with his caregiver, but lately has not been agreeable to go there; EMR-- he had one fall/LBP on 07-08-22 and went to ER, CT of lumbar spine report states DDD, large bridging osteophytes and moderat facet arthropathy Reported Pain Level Pain Score 4: Self Report back and R hip Assessment PT Clinical Summary Ulysses has the diagnosis of dizziness/giddiness. He had ER visit recently due to fall and LBP, with lumbar CT reporting changes in his spine. He has dementia--was cooperative, able to follow simple commands, and had some word finding problems. He lives with his sister, and caregiver Dory brought him into today's appt. With the evaluation, he did not report any vestibular words of dizziness, spinning, but used wobbly, unsteady and legs give out. He has decreased walking balance, decreased leg strength and Tinetti balance/gait score of 22/28. His R hamstring is tighter than his L and caused him pain. Skilled PT services are indicated for therapeutic exercises and activities to increase LE strength, gait and balance skills, to improve safety with mobility, modalities for back and hip pain and education to pt and caregiver for HEP. Plan of Care Interventions Gait Training,Hot Pack/Cold Pack,Manual Therapy, Neuro Re-education,Patient/Caregiver Educati, Therapeutic Activities,Therapeutic Exercise PT Services Indicated Yes Treatment Frequency and 2x/wk for 3 weeks Duration These treatments will address the objective and functional deficits as defined above. The patient will be advanced safely and appropriately in order for the patient to progress towards his/her prior level of function. Additional exercises will be introduced and as well as a comprehensive home exercise program upon discharge, if needed, ?to ensure carryover of functional gains achieved i
--- NOTE | 2022-08-02 13:45 | PCPTNOTE ---
Pt no showed this morning, [employer] called and left message that he could be seen at a later time today.
--- NOTE | 2022-08-07 15:06 | PTOPDC ---
Assessment and note entered by Kat Vinson, PT Evaluation Information Assessment Status Discharge Diagnosis dizziness and giddiness/ unsteady walking Onset about one month ago Subjective Information Ulysses and caregiver report: have not had any falls; do not use the walker or cane--do not need them; Reported Pain Level Pain Score Mild Pain: Surya Johnson in back and R hip Assessment PT Clinical Summary Ulysses has received 5 PT sessions, He did not show for one appointment. Compared to the initial evaluation: 2 minute walking test distance increased by 75'; Acosta balance score increased by 4 points to 26/28; 5 reps sit/stand time, worse by 6 seconds, but balance was better--thighs did not touch the mat; he and caregiver have been educated on HEP and he has not had any falls; He continues to report pain in his back and R hip. The goals were partially met Discharge PT services. Plan of Care PT Services Indicated No
== END 2022-08-08 10:28 | disposition home or self-care (01) ==
LOC: ANHPT 14:30
PROVIDERS: PCP Internal Medicine; Visit Provider Nurse Practitioner Family
DX: H81.10 Benign paroxysmal vertigo, unspecified ear (principal)
CPT/HCPCS: 97110; 97162; 97530; 99199

== ENCOUNTER 2022-10-25 13:30 | Outpatient (RCR) | payer MEDICARE, SELFPAY ==
--- NOTE | 2022-09-26 11:56 | PTOPEVAL1 ---
Assessment and note entered by Juan David Patterson, PT Evaluation Information Assessment Status Evaluation Diagnosis Unsteadiness on feet. Subjective Information Patient reports he is not sure why he is here. Patient has a PMH of dementia. According to the patient's last MD report he had 2 falls and home and him and caregiver were agreeable to physical therapy and using an assistive device. The patient did not come with any assistive device to the evaluation and caregiver was not around to talk to therapist during or after the evaluation. Reported Pain Level Pain Score Mild Pain: London Johnson Additional Pain Score Comments patient reports mild pain in his back. Assessment PT Clinical Summary Mr. Lane is a 77 year old male coming into the clinic with a diagnosis of unsteadiness on his feet. Patient does have 4/5 THANIA LE strength, a very slow tiffani, and gait dysfunction seen with walking. Tinetti score of 19/28 which is indicative of a high risk for falls. Patient was also here in therapy about 6 weeks ago and has not accepted recommendation to use an assistive device. Prognosis is poor secondary to decreased safety awareness secondary to dementia. Physical therapy will work on balance and gait pattern. Plan of Care Interventions Gait Training,Manual Therapy,Neuro Re-education, Patient/Caregiver Education,Therapeutic Activities, Therapeutic Exercise,Ultrasound Other Interventions cupping, taping, and IASTM PT Services Indicated Yes Treatment Frequency and 1-2x/wk for 4 weeks Duration These treatments will address the objective and functional deficits as defined above. The patient will be advanced safely and appropriately in order for the patient to progress towards his/her prior level of function. Additional exercises will be introduced and as well as a comprehensive home exercise program upon discharge, if needed, ?to ensure carryover of functional gains achieved in the clinic. This treatment plan has been reviewed and agreement upon by the patient.
--- NOTE | 2022-09-26 11:56 | OPREHPOC ---
Outpatient Therapy Plan of Care This is a Multidisciplinary Plan of Care that may contain components documented by all disciplines (PT, OT, and ST.) PT Problem 1 PT Problem #1 Knowledge Deficit PT Goal 1 Goal caregiver independent with HEP Target Visit 6 PT Problem 2 PT Problem #2 Impaired Balance PT Goal 1 Goal 22/28 Tinetti score Target Visit 6 PT Problem 3 PT Problem #3 Impaired Functional Mobil PT Goal 1 Goal reports of no falls Target Visit 6 PT Goal 2 Goal Patient using the least restrictive assistive device Target Visit 6
--- NOTE | 2022-10-25 14:06 | PTOPDC ---
Assessment and note entered by Juan David Patterson, PT Evaluation Information Assessment Status Evaluation Diagnosis Unsteadiness on his feet Subjective Information Patient reports he has had no falls, is currently not in any pain and reports no issues with his functional mobility. Patient does have dementia and is a poor historian. Reported Pain Level Pain Score 0: Self Report Pain Score 0: Self Report Assessment PT Clinical Summary Ulysses is a 77 year old male coming into the clinic with a diagnosis of unsteadiness on his feet. Patient was evaluated on 09/25/22 and has attended 8 sessions. The patient has met his balance goal going from a high fall risk to a moderate risk for falls. Self reports no falls in the last month and strength in his LE's were not improved, but not diminished either. Physical therapist feels any falls are probably safety awareness issues and further therapy would not help that. Recommended using assistive device and according to chart review previous physical therapist did, but patient declines. Discharge from physical therapy. Plan of Care PT Services Indicated No
== END 2022-10-30 11:05 | disposition home or self-care (01) ==
LOC: ANHPT 13:30
PROVIDERS: PCP Family Medicine; Visit Provider Nurse Practitioner Family
DX: R26.81 Unsteadiness on feet (principal)
CPT/HCPCS: 97110; 97112; 97161; 97530

== ENCOUNTER 2023-02-28 18:02 | Emergency (ER) | payer MEDICARE, SELFPAY ==
[2023-02-28] VITALS (10 sets, daily range): BP systolic 140–158; BP diastolic 63–85; PULSE 57–67; RESP 12–28; TEMP 36.5–37; O2SAT 97–100
--- NOTE | ~2023-02-28 | CT_ITS ---
EXAMINATION: CT abdomen pelvis w con DATE: 02/28/2023 19:54 INDICATION: Lower abdominal pain TECHNIQUE: Computed tomography (CT) of the abdomen and pelvis was performed with 100 mL Omnipaque-350 intravenous contrast. Automated exposure control and iterative reconstruction technique were employe d. The dose-length product was 387.13 mGy-cm. COMPARISON: 02/22/2015 FINDINGS: Mild dependent atelectasis in bilateral lower lobes. Calcified nodule at the right posterior sulcus a nd splenic calcification consistent with old granulomatous disease. Heart size is normal. Atheroscler otic coronary artery calcification. No pericardial or pleural effusion. Liver, gallbladder, pancreas, bilateral adrenal glands and kidneys are normal. Woodson catheter within the decompressed bladder. The re is a moderate to large amount of stool throughout the colon with 9.2 x 8.8 cm ball of stool at rec bridgett suggestive of constipation with fecal impaction. There is some mild wall thickening at the rectum and stranding in the perirectal fat consistent with secondary stercoral colitis. Small bowel and erika endix are normal. No free intraperitoneal gas or fluid. No pathologically enlarged abdominal or pelvi c lymphadenopathy. Chronic L2 and L4 compression fractures with moderate lumbar spondylosis. There ar e bridging osteophytes at multiple levels in the lower thoracic spine consistent with diffuse idiopat hic skeletal hyperostosis (DISH). IMPRESSION: 1. Likely constipation with fecal impaction including 9 cm ball of stool at rectum and associated palomo rcoral colitis. Reviewed, dictated and finalized at location A. ASSEMBLER IMPRESSION: 1. Likely constipation with fecal impaction including 9 cm ball of stool at rec bridgett and associated stercoral colitis.
--- NOTE | 2023-02-28 18:39 | ED.ABDPAIN ---
HPI - Abdominal Pain General Chief Complaint: Abdominal Pain Stated Complaint: ABD PAIN, URINARY SYMPTOMS Time Seen by Provider: 02/28/23 18:27 Source: RN notes reviewed and old records reviewed Mode of arrival: ambulatory Limitations: dementia History of Present Illness HPI narrative: This is a 78 year old male with history of dementia who presents for evaluation of abdominal pain. He has family at bedside to given history as patient has dementia. He is oriented to person. His family reports patient came home yesterday complaining of abdominal pain and constipation. She gave his miralax and patient has been having diarrhea since taking miralax. She reports patient is still complaining of abdominal pain so they went to urgent care. She also reports patient is having issues with urinary retention so she has been trying to get evaluation for UTI. Related Data Home Medications Medication Instructions Recorded Confirmed cyanocobalamin (vitamin B-12) 1,000 mcg PO DAILY 04/03/21 09/11/22 1,000 mcg tablet memantine 10 mg tablet 10 mg PO BID 04/03/21 09/11/22 donepezil 5 mg tablet 5 mg PO QHS 08/24/21 09/11/22 aspirin 81 mg tablet,delayed 81 mg PO DAILY 06/14/22 09/11/22 release (Adult Aspirin Regimen) cetirizine 10 mg tablet 10 mg PO DAILY PRN Congestion 06/14/22 09/11/22 ginkgo biloba leaf extract 120 1 tablet PO DAILY 06/14/22 09/11/22 mg-choline bitartrate 110 mg tablet ([facility]) docusate sodium 100 mg capsule 100 mg PO DAILY 07/22/22 09/11/22 (Colace) brimonidine 0.2 %-timolol 0.5 % 1 drp EACH EYE Q12H 09/10/22 09/11/22 eye drops (Combigan) terbinafine HCl 250 mg tablet 250 mg PO DAILY 09/10/22 09/11/22 Allergies Allergy/AdvReac Type Severity Reaction Status Date / Time No Known Allergies Allergy Unknown Verified 02/28/23 18:22 Review of Systems Review of Systems: ROS unobtainable: Yes unobtainable due to medical condition (dementia) PMFSH Past Medical History Medical History Chronic kidney disease, stage 3 (moderate) Chronic kidney disease, stage 3 (moderate) (01/07/19) Colon cancer screening Elevated prostate specific antigen [PSA] Essential (primary) hypertension Primary open-angle glaucoma, bilateral, stage unspecified Unspecified iridocyclitis Family History Family History Father Carcinoma of colon Patient's father is Family history of malignant neoplasm Mother Patient's mother is Family history unknown Social History Social History Years smoked: 50 Smoking status: Current every day smoker Tobacco type: cigarettes Alcohol intake: current Alcohol use details: social Substance use: never Substance use type: does not use Lack of Transportation: YES Lack of Food: Never True Current Housing: I Have Housing Concerned About Future Housing: No Difficulty Paying Gas/Electric Bills: No Difficulty Paying for Meds: No Currently Unemployed: No Education: High School Diploma/GED Difficulty w/ Childcare or Family Care: No Living arrangements: with family Spiritual care concerns: No Exam Const: General: alert Nutritional Appearance: well nourished Other: oriented to person HENMT: Head: normal to inspection Mouth: Yes Normal oral and palatal mucosa present, Yes lip normal and Yes moist mucous membranes Eyes: EOM: EOMs intact bilaterally Chest: Chest palpation & inspection: normal inspection of the chest Resp: Effort & Inspection: normal respiratory effort Auscultation: clear to auscultation bilaterally Cardio: Rate: regular rate Rhythm: regular rhythm Heart sounds: no murmurs GI: GI Palp: Yes Soft to palpation, Yes Tenderness to palpation present (GI) (patient seems to grimace with palpation), No Guarding due to p
[2023-02-28 19:07] LABS: Basophils Absolute Auto 0.1 K/mm3 (0.0-0.1); Basophils Percent Auto 0.8 % (0.2-1.2); Eosinophils Absolute Auto 0.4 K/mm3 (0-0.3); Eosinophils Percent Auto 5.4 % (0-4.4); Hematocrit 41.4 % (42.0-52.0); Hemoglobin 13.4 g/dL (14.0-18.0); Immature Granulocyte Absolute 0.02 K/mm3 (0.00-0.031); Immature Granulocyte Percent A 0.3 % (0-0.5); Lymphocytes Absolute Auto 1.37 K/mm3 (0.9-3.2); Lymphocytes Percent Auto 21.2 % (18.3-44.2); Mean Corpuscular HGB Conc 32.4 g/dl (32-36); Mean Corpuscular Hemoglobin 29.7 pg (26-34); Mean Corpuscular Volume 91.8 fl (80-100); Mean Platelet Volume 10.6 fl (7.4-10.4); Monocytes Absolute Auto 0.7 K/mm3 (0.1-0.6); Monocytes Percent Auto 10.2 % (2.6-8.5); Neutrophils Percent Auto 62.1 % (45.5-73.1); Platelet Count Result 167 k/mm3 (150-375); Red Blood Count 4.51 M/mm3 (4.6-6.20); Red Cell Distribution Width 13.6 % (11.5-14.5); White Blood Count 6.5 K/mm3 (4.5-10.0)
[2023-02-28 19:17] LABS: Alanine Aminotransferase 35 U/L (6-50); Albumin Level 4.1 g/dL (3.5-5.1); Alkaline Phosphatase 130 U/L (38-126); Anion Gap 11 mmol/L (8-16); Aspartate Amino Transferase 57 U/L (17-59); Bilirubin,Total 0.6 mg/dL (0.2-1.3); Blood Urea Nitrogen 25 mg/dL (9-20); Calcium 9.5 mg/dL (8.4-10.2); Carbon Dioxide 26 mmol/L (22-30); Chloride 105 mmol/L (98-107); Estimated CRCL calculation 49 ml/min; Estimated Glomerular Filt Rate > 60; Glucose 93 mg/dL (65-110); Lipase 81 U/L (23-300); Potassium 4.2 mmol/L (3.4-5.0); Sodium 142 mmol/L (137-145)
[2023-02-28 19:18] LABS: Lactic Acid Reflex 2.1 mmol/L (0.7-2.0)
[2023-02-28 19:30] LABS: Appearance Urine Clear (Clear); Bacteria Urine None Seen /hpf; Bilirubin Urine 2+ (Negative); Blood Urine Negative (Negative); Color Urine Dark Yellow (Yellow); Glucose Urine UA Negative (Negative); Ketones Urine Trace mg/dL (Negative); Leukocyte Esterase Ur Negative LEU/UL (Negative); Nitrate Urine Negative (Negative); Non Pathogenic Casts 0-2; Protein Urine 1+ mg/dL (Negative); Specific Grav Ur 1.033 (1.001-1.035); Squamous Epithelial Cell Urine None seen /hpf (Few); WBC Urine 0-5 /hpf; pH Urine 5.5 (5.0-9.0)
[2023-02-28 19:31] LABS: Add Urine Microscopic? YES
[2023-02-28 20:14] LABS: SARS-CoV-2 RNA PCR Negative (Negative)
[2023-02-28] MEDS: BISACODYL 10 MG SUPPOSITORY RECTAL (21:35)
--- NOTE | 2023-02-28 21:35 | PC.NURSE ---
Garcia placed by techrafaela. Dr. Blair in room and states she did not want garcia placed. Garcia cath removed.
[2023-02-28 22:01] LABS: Reflex Lactic Acid Yes or No Add Lactic
== END 2023-02-28 22:44 | disposition home or self-care (01) ==
PROVIDERS: Emergency Provider General Practice; PCP Family Medicine
DX: K56.41 Fecal impaction (principal); F03.90 Unspecified dementia, unspecified severity, without behavioral disturbance, psychotic disturbance, mood disturbance, and anxiety; I12.9 Hypertensive chronic kidney disease with stage 1 through stage 4 chronic kidney disease, or unspecified chronic kidney disease; N18.30 Chronic kidney disease, stage 3 unspecified; F17.210 Nicotine dependence, cigarettes, uncomplicated; Z20.822 Contact with and (suspected) exposure to COVID-19
CPT/HCPCS: 36415; 51702; 74177; 80053; 81001; 83605; 83690; 85025; 87635; 99284; A9270; Q9967

== ENCOUNTER 2023-03-27 16:40 | Observation (INO) | payer MEDICARE, MEDICAID, SELFPAY ==
[2023-03-27] VITALS (9 sets, daily range): BP systolic 125–143; BP diastolic 75–96; PULSE 61–93; RESP 15–24; TEMP 36.5; O2SAT 96–99
--- NOTE | ~2023-03-27 | CT_ITS ---
EXAMINATION: CTA brain carotid DATE: 03/30/2023 22:28 INDICATION: Transient alteration of awareness. TECHNIQUE: Computed tomographic angiography (CTA) of the head was performed with 100 mL Omnipaque-350 intravenous contrast. CTA of the neck was performed with intravenous contrast. Automated exposure co ntrol and iterative reconstruction technique were employed. The dose-length product was 1254.34 mGy-c m. Maximum intensity projection and volume rendered 3D-reconstructions were created by the technologi st on a separate workstation. COMPARISON: Head CT 03/27/2023, brain MRI 03/30/2023 FINDINGS: HEAD CTA: There are scattered areas of low attenuation in the cerebral white matter. There is old inf arct in the left parietal lobe deep white matter. There is no intracranial hemorrhage, acute infarcti on, or abnormal intracranial mass lesion. The ventricles are normal in size. There are likely changes of right ocular lens replacement surgery. There is mild mucosal thickening in the paranasal sinuses. The mastoid air cells are normal. Left vertebral artery is dominant. There is no significant stenosi s of basilar artery or the posterior cerebral arteries. The posterior communicating arteries are norm al. There is no significant stenosis of the intracranial internal carotid arteries or anterior or mid dle cerebral arteries. Anterior communicating artery is normal. There is no aneurysm. NECK CTA: There is mild emphysema. There is mild scarring at the lung apices. There are no pathologic ally enlarged lymph nodes. There is no significant stenosis of the vertebral arteries. There is minim al plaque in the proximal internal carotid arteries. There is 0% stenosis of the proximal right inter nal carotid artery relative to normal distal artery lumen diameter (NASCET criteria). There is 0% palomo nosis of the proximal left internal carotid artery relative to normal distal artery lumen diameter. T here is moderate cervical spondylosis. IMPRESSION: 1. 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 2. Moderate nonspecific cerebral white matter disease, which likely represents chronic small vessel i schemic disease. 3. No aneurysm or significant intracranial arterial stenosis. 4. 0% stenosis of the proximal internal carotid arteries relative to normal distal artery lumen diame ters (NASCET criteria). Reviewed, dictated and finalized at location A. ONATION EQUIPMENT TENDER IMPRESSION: 1. 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 2. Moderate nonspecific cerebral white matter disease, which likely represents chronic small vessel ischemic disease. 3. No aneurysm or significant intracranial arterial stenosis. 4. 0% stenosis of the proximal internal carotid arteries relative to normal dis willian artery lumen diameters (NASCET criteria).
--- NOTE | ~2023-03-27 | MR_ITS ---
EXAMINATION: MR brain/brain stem wo con DATE: 03/30/2023 09:02 INDICATION: Altered mental status. TECHNIQUE: Magnetic resonance imaging (MRI) of the brain and brainstem was performed without intraven ous contrast. COMPARISON: Brain MRI 08/15/2020, head CT 03/27/2023. FINDINGS: There is diffuse brain volume loss. There are scattered areas of nonspecific increased T2-w eighted signal intensity in the cerebral white matter. There is no intracranial hemorrhage, acute inf arction, or abnormal intracranial mass lesion. There is a small area of cystic encephalomalacia in th e left parietal deep white matter. The ventricles are normal in size. There is mild mucosal thickenin g in the paranasal sinuses. There are likely changes of right ocular lens replacement surgery. The ma stoid air cells are normal. IMPRESSION: 1. 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 2. Stable moderate nonspecific cerebral white matter disease, which likely represents chronic small v essel ischemic disease. Reviewed, dictated and finalized at location A. OPERATIONS IMPRESSION: 1. 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 2. Stable moderate nonspecific cerebral white matter disease, which likely repr esents chronic small vessel ischemic disease.
--- NOTE | ~2023-03-27 | XR_ITS ---
EXAMINATION: XR chest 1V Exam Date/Time: 03/27/2023 17:25 PHARM TECH HISTORY: weakness AND CONFUSION X 1 DAY Comparison: 08/10/2020. RESULT: Lines, tubes, and devices: None. Lungs and pleura: Emphysematous/senescent change. No focal consolidation, pleural effusion, or pneum othorax.. Cardiomediastinal silhouette: Stable. Other: No acute osseous or upper abdominal finding. IMPRESSION: No acute cardiopulmonary process. Reviewed, dictated and finalized at location K. M TECH
--- NOTE | ~2023-03-27 | XR_ITS ---
EXAMINATION: XR chest 1V portable DATE: 03/31/2023 05:45 INDICATION: Altered mental status. TECHNIQUE: A single frontal view of the chest was obtained. COMPARISON: Chest single view 03/29/2023, CT abdomen and pelvis 02/28/2023 FINDINGS: There is mild atelectasis in the lower lung zones. No pleural effusion or pneumothorax. The heart size is normal. IMPRESSION: 1. Mild atelectasis in the lower lung zones. Reviewed, dictated and finalized at location A. ENT SERVICES REPRESENTATIVE
--- NOTE | ~2023-03-27 | CT_ITS ---
EXAMINATION: CT brain wo con DATE: 03/27/2023 17:28 INDICATION: Altered mental status. TECHNIQUE: Computed tomography (CT) of the head was performed without intravenous contrast. The mA wa s adjusted according to patient size. Iterative reconstruction technique was employed. The dose-lengt h product was 681.00 mGy-cm. COMPARISON: 06/22/2022. FINDINGS: No acute intracranial hemorrhage or extra-axial fluid collection. No hydrocephalus, mass, or herniation. No acute ischemic infarct. Unremarkable dural venous sinus attenuation. No acute osseous abnormality. Aerated secretions in the right sphenoid, small retention cyst or polyp in the left maxillary sinus, mild mucosal thickening in the right frontal and anterior ethmoid sinuses, the remaining aerated spac es are clear. Moderate atrophy and chronic white matter change. Atherosclerotic intracranial calcification. Right l ens replacement. IMPRESSION: No acute intracranial process. Aerated secretions in the right sphenoid may reflect sinusitis in the appropriate clinical context. Reviewed, dictated and finalized at location K. ULE MACHINE OPERATOR IMPRESSION: No acute intracranial process. Aerated secretions in the right sphenoid may reflect sinusitis in the appropria te clinical context.
--- NOTE | ~2023-03-27 | XR_ITS ---
XR abdomen/kub 1V 03/29/2023 08:32 INDICATION: History of stool impaction TECHNIQUE: KUB COMPARISON: None FINDINGS: Bowel gas pattern is normal. Moderate retained fecal material in the colon. There is no chung dence of free air, mass, organomegaly, ascites or obstruction. No abnormal calculi are seen. The bartolo dwain appear intact. Moderate lumbar spondylosis. There is chronic loss of vertebral body height at mul tiple lumbar levels. IMPRESSION: 1: No acute abdominal abnormality identified. Reviewed, dictated and finalized at location A. MANAGER
--- NOTE | ~2023-03-27 | XR_ITS ---
EXAMINATION: XR chest 1V portable INDICATION: MRI clearance TECHNIQUE: Portable AP chest at 1634 hours COMPARISON: 03/27/2023 FINDINGS: No radiopaque foreign body is identified. The lungs are free of acute opacities. No pleural effusion or pneumothorax. IMPRESSION: 1. No radiopaque foreign body identified. Reviewed, dictated and finalized at location B. F UNDERWRITER
--- NOTE | 2023-03-27 16:44 | ED.AMS ---
HPI - Altered Mental Status General Chief Complaint: Altered Mental Status Stated Complaint: AMS Time Seen by Provider: 03/27/23 16:41 History of Present Illness HPI narrative: Patient is a 78 year old male with history of HTN, PVD, dementia here with confusion and weakness. Patient lives with sister who provides the majority of her history. She notes that over the last 1 month he seems to have some worsening confusion with confusing day and night and more difficulty performing daily tasks. This has worsened more over the last 1 week and he has had some difficulty with dressing himself. Today he went to an appointment where he had difficulty walking back to the bus and kept dosing off. They contacted his sister who had him brought into the ER. She denies fever, chills, cough, diarrhea. She notes he is supposed to use a walker and cane and can forget to use these around the house. No recent falls. Sister is concerned that he may be getting closer to the point where he needs more care at home than she is able to provide. Patient denies any pain. Related Data Home Medications Medication Instructions Recorded Confirmed cyanocobalamin (vitamin B-12) 1,000 mcg PO DAILY 04/03/21 03/04/23 1,000 mcg tablet memantine 10 mg tablet 10 mg PO BID 04/03/21 03/04/23 aspirin 81 mg tablet,delayed 81 mg PO DAILY 06/14/22 03/04/23 release (Adult Aspirin Regimen) cetirizine 10 mg tablet 10 mg PO DAILY PRN Congestion 06/14/22 03/04/23 ginkgo biloba leaf extract 120 1 tablet PO DAILY 06/14/22 03/04/23 mg-choline bitartrate 110 mg tablet ([facility] Support) docusate sodium 100 mg capsule 100 mg PO DAILY 07/22/22 03/04/23 (Colace) brimonidine 0.2 %-timolol 0.5 % 1 drp EACH EYE Q12H 09/10/22 03/04/23 eye drops (Combigan) Allergies Allergy/AdvReac Type Severity Reaction Status Date / Time No Known Allergies Allergy Unknown Verified 03/07/23 14:04 Review of Systems Review of Systems: ROS unobtainable: Yes unobtainable due to mental status PMFSH Past Medical History Medical History Chronic kidney disease, stage 3 (moderate) Chronic kidney disease, stage 3 (moderate) (01/07/19) Colon cancer screening Elevated prostate specific antigen [PSA] Essential (primary) hypertension Primary open-angle glaucoma, bilateral, stage unspecified Unspecified iridocyclitis Family History Family History Father Carcinoma of colon Patient's father is Family history of malignant neoplasm Mother Patient's mother is Family history unknown Social History Social History Smoking packs per day: 0.5 Smoking cigarettes per day: 10.0 Years smoked: 50 Smoking pack-years: 25.00 Smoking status: Current every day smoker Tobacco type: cigarettes Alcohol intake: never Alcohol use details: social Substance use: never Substance use type: does not use Lack of Transportation: YES Lack of Food: Never True Current Housing: I Have Housing Concerned About Future Housing: No Difficulty Paying Gas/Electric Bills: No Difficulty Paying for Meds: No Currently Unemployed: No Education: High School Diploma/GED Difficulty w/ Childcare or Family Care: No Living arrangements: with family Spiritual care concerns: No Exam Narrative: GENERAL: Chronically ill appearing, cachectic, and in no acute distress. HEAD: Normocephalic, atraumatic. EYES: PERRLA and EOMI. ENT: Nares clear. Mucous membranes dry. NECK: Supple. CHEST: Clear to auscultation. No respiratory distress. HEART: Regular rate and rhythm. Normal peripheral pulses. ABDOMEN: Soft, nontender, nondistended. EXTREMITIES: Normal range of motion. No edema. SKIN: Warm, dry, no rash. NEURO: No focal deficits. No upper or lower extremity drift, no facia
--- NOTE | 2023-03-27 16:47 | ECG_ITS ---
Measurements Intervals [place] Rate: 62 P: 66 DE: 275 QRS: 10 QRSD: 82 T: 6 QT: 360 QTc: 367 Interpretive Statements SINUS RHYTHM WITH FIRST DEGREE AV BLOCK VOLTAGE CRITERIA FOR LVH [MEETS CRITERIA IN ONE OF: R(aVL), S(V1), R(V5), R(V5/V6)+S(V1)] POSSIBLE INFERIOR MYOCARDIAL INFARCTION , PROBABLY OLD [30 ms Q WAVE IN II/aVF] NO PREVIOUS ECG AVAILABLE FOR COMPARISON Electronically Signed On 03-27-2023 21:11:51 MAIL CLERK by Cristhian Beard M.D.
[2023-03-27 17:12] LABS: Basophils Percent Auto 0.3 % (0.2-1.2); Eosinophils Absolute Auto 0.1 K/mm3 (0-0.3); Eosinophils Percent Auto 1.5 % (0-4.4); Hematocrit 41.7 % (42.0-52.0); Hemoglobin 13.2 g/dL (14.0-18.0); Immature Granulocyte Absolute 0.02 K/mm3 (0.00-0.031); Immature Granulocyte Percent A 0.3 % (0-0.5); Lymphocytes Absolute Auto 0.97 K/mm3 (0.9-3.2); Lymphocytes Percent Auto 13.2 % (18.3-44.2); Mean Corpuscular HGB Conc 31.7 g/dl (32-36); Mean Corpuscular Volume 91.6 fl (80-100); Mean Platelet Volume 10.3 fl (7.4-10.4); Monocytes Absolute Auto 0.6 K/mm3 (0.1-0.6); Monocytes Percent Auto 8.2 % (2.6-8.5); Neutrophils Absolute Auto 5.6 K/mm3 (1.3-6.7); Neutrophils Percent Auto 76.5 % (45.5-73.1); Platelet Count Result 192 k/mm3 (150-375); Red Blood Count 4.55 M/mm3 (4.6-6.20); Red Cell Distribution Width 13.6 % (11.5-14.5); White Blood Count 7.3 K/mm3 (4.5-10.0)
[2023-03-27 17:22] LABS: INR 1.2; Partial Thromboplastin Time 33.4 SECONDS (22.3-36.8); Prothrombin Time 15.5 Seconds (11.1-14.7)
[2023-03-27 17:25] LABS: Appearance Urine Clear (Clear); Bacteria Urine None Seen /hpf; Bilirubin Urine 2+ (Negative); Blood Urine Negative (Negative); Color Urine Dark Yellow (Yellow); Glucose Urine UA Negative (Negative); Ketones Urine Trace mg/dL (Negative); Leukocyte Esterase Ur Negative LEU/UL (Negative); Nitrate Urine Negative (Negative); Non Pathogenic Casts 0-2; Protein Urine 1+ mg/dL (Negative); RBC Urine 0-2 /hpf (0-2); Specific Grav Ur 1.029 (1.001-1.035); Squamous Epithelial Cell Urine None seen /hpf (Few); WBC Urine 0-5 /hpf
[2023-03-27 17:26] LABS: Add Urine Microscopic? YES
[2023-03-27 17:41] LABS: Alanine Aminotransferase 32 U/L (6-50); Albumin Level 3.8 g/dL (3.5-5.1); Alkaline Phosphatase 157 U/L (38-126); Anion Gap 6 mmol/L (8-16); Aspartate Amino Transferase 38 U/L (17-59); Bilirubin,Total 0.9 mg/dL (0.2-1.3); Blood Urea Nitrogen 25 mg/dL (9-20); Calcium 9.8 mg/dL (8.4-10.2); Carbon Dioxide 30 mmol/L (22-30); Chloride 107 mmol/L (98-107); Creatine Kinase 53 U/L (55-170); Estimated CRCL calculation 50 ml/min; Estimated Glomerular Filt Rate > 60; Glucose 95 mg/dL (65-110); Magnesium 2.1 mg/dL (1.6-2.3); Potassium 3.9 mmol/L (3.4-5.0); Sodium 143 mmol/L (137-145)
[2023-03-27] MEDS: LACTATED RINGERS 1,000 ML 999 ML IV CONT (17:45)
[2023-03-27 17:56] LABS: Troponin I 0.202 ng/mL (0.000-0.034)
[2023-03-27 18:16] LABS: Influenza A QL RT-PCR Negative (Negative); Influenza B QL RT-PCR Negative (Negative); RSV RNA, RT-PCR Negative (Negative); SARS-CoV-2 RNA PCR Negative (Negative)
[2023-03-27 18:19] LABS: CRP 15.2 mg/dL (<1.0)
--- NOTE | 2023-03-27 19:28 | PC.NURSE ---
care and report given to TAPAN Lord. all questions answered.
[2023-03-27] MEDS: ASPIRIN 81 MG CHEWABLE TABLET 324 MG PO (20:00)
[2023-03-27] MEDS: ENOXAPARIN 80 MG/0.8 ML SYRINGE SUB-Q (20:00)
--- NOTE | 2023-03-27 20:40 | ECG_ITS ---
Measurements Intervals [place] Rate: 67 P: 68 ME: 303 QRS: 0 QRSD: 94 T: 4 QT: 358 QTc: 380 Interpretive Statements SINUS RHYTHM WITH FIRST DEGREE AV BLOCK VOLTAGE CRITERIA FOR LVH [MEETS CRITERIA IN ONE OF: R(aVL), S(V1), R(V5), R(V5/V6)+S(V1)] INFERIOR MYOCARDIAL INFARCTION , PROBABLY OLD [40+ ms Q WAVE AND/OR ST/T ABNORMALITY IN II/aVF] COMPARED TO ECG 03/27/2023 16:59:35 NO SIGNIFICANT CHANGES Electronically Signed On 03-27-2023 21:15:52 SHEET METAL FOREMAN by Cristhian Beard M.D.
[2023-03-27 20:42] LABS: Troponin I 0.205 ng/mL (0.000-0.034)
[2023-03-27 21:38] LABS: NT Pro B Type Natriuretic Pept 258 pg/mL (19.9-100)
[2023-03-28] VITALS (17 sets, daily range): BP systolic 121–165; BP diastolic 73–105; PULSE 54–81; RESP 16–24; TEMP 36.6–37.5; O2SAT 93–98; BMI 22.2
--- NOTE | 2023-03-28 00:25 | PC.NURSE ---
Spoke with classroom assistant regarding patient's 6hour trop due at 1105. Hot Stick Man refused to get pt's labs. ER Charge nurse aware.
[2023-03-28 01:56] LABS: Troponin I 0.216 ng/mL (0.000-0.034)
[2023-03-28 06:30] LABS: Basophils Percent Auto 0.4 % (0.2-1.2); Eosinophils Absolute Auto 0.2 K/mm3 (0-0.3); Eosinophils Percent Auto 2.1 % (0-4.4); Hemoglobin 12.3 g/dL (14.0-18.0); Immature Granulocyte Absolute 0.02 K/mm3 (0.00-0.031); Immature Granulocyte Percent A 0.3 % (0-0.5); Lymphocytes Absolute Auto 1.02 K/mm3 (0.9-3.2); Lymphocytes Percent Auto 14.3 % (18.3-44.2); Mean Corpuscular HGB Conc 32.4 g/dl (32-36); Mean Corpuscular Hemoglobin 29.5 pg (26-34); Mean Corpuscular Volume 91.1 fl (80-100); Mean Platelet Volume 10.6 fl (7.4-10.4); Monocytes Absolute Auto 0.6 K/mm3 (0.1-0.6); Monocytes Percent Auto 8.4 % (2.6-8.5); Neutrophils Absolute Auto 5.3 K/mm3 (1.3-6.7); Neutrophils Percent Auto 74.5 % (45.5-73.1); Platelet Count Result 169 k/mm3 (150-375); Red Blood Count 4.17 M/mm3 (4.6-6.20); Red Cell Distribution Width 13.5 % (11.5-14.5); White Blood Count 7.2 K/mm3 (4.5-10.0)
[2023-03-28 06:41] LABS: Alanine Aminotransferase 27 U/L (6-50); Albumin Level 3.3 g/dL (3.5-5.1); Alkaline Phosphatase 136 U/L (38-126); Anion Gap 4 mmol/L (8-16); Aspartate Amino Transferase 33 U/L (17-59); Bilirubin,Total 0.9 mg/dL (0.2-1.3); Blood Urea Nitrogen 21 mg/dL (9-20); Carbon Dioxide 28 mmol/L (22-30); Chloride 110 mmol/L (98-107); Estimated CRCL calculation 50 ml/min; Estimated Glomerular Filt Rate > 60; Glucose 95 mg/dL (65-110); Potassium 3.6 mmol/L (3.4-5.0); Sodium 142 mmol/L (137-145)
[2023-03-28 06:47] LABS: INR 1.2; Prothrombin Time 16.2 Seconds (11.1-14.7)
[2023-03-28 06:56] LABS: Troponin I 0.212 ng/mL (0.000-0.034)
--- NOTE | 2023-03-28 09:39 | PM.IMHP ---
H&P: HPI History of Present Illness Date/Time: 03/28/23 09:39 Chief Complaint: Altered mental status Narrative: 03/27: ED course: Patient is a 78 year old male with history of HTN, PVD, dementia here with confusion and weakness. Patient lives with sister who provides the majority of her history. She notes that over the last 1 month he seems to have some worsening confusion with confusing day and night and more difficulty performing daily tasks. This has worsened more over the last 1 week and he has had some difficulty with dressing himself. Today he went to an appointment where he had difficulty walking back to the bus and kept dosing off. They contacted his sister who had him brought into the ER. She denies fever, chills, cough, diarrhea. She notes he is supposed to use a walker and cane and can forget to use these around the house. No recent falls. Sister is concerned that he may be getting closer to the point where he needs more care at home than she is able to provide. Patient denies any pain. 03/28: Troponins remain elevated and flat. Alert and oriented to self only. Cardiology consulted and as there are no ischemic changes on the EKG and troponins are elevated but flat he does not warrant any additional cardiac workup and they will sign off at this time. Telemetry remained unchanged. Patient downgraded from IMCU to regular med floor. Vital signs and lab work remained stable. Review of Systems Review of Systems: ROS unobtainable: Yes unobtainable due to mental status (History of dementia and oriented to person only) [facility] Past Medical History Medical History Chronic kidney disease, stage 3 (moderate) Chronic kidney disease, stage 3 (moderate) (01/07/19) Colon cancer screening Elevated prostate specific antigen [PSA] Essential (primary) hypertension Primary open-angle glaucoma, bilateral, stage unspecified Unspecified iridocyclitis Family History Family History Father Carcinoma of colon Patient's father is Family history of malignant neoplasm Mother Patient's mother is Family history unknown Social History Social History Smoking packs per day: 0.5 Smoking cigarettes per day: 10.0 Years smoked: 60 Smoking pack-years: 30.00 Smoking status: Current every day smoker Tobacco type: cigarettes Alcohol intake: former Alcohol use details: social Substance use: never Substance use type: does not use Lack of Transportation: YES Lack of Food: Never True Current Housing: I Have Housing Concerned About Future Housing: No Difficulty Paying Gas/Electric Bills: No Difficulty Paying for Meds: No Currently Unemployed: No Education: High School Diploma/GED Difficulty w/ Childcare or Family Care: No Living arrangements: with family Spiritual care concerns: No Meds Home Medications and Allergies Home Medications Medication Instructions Recorded Confirmed Type cyanocobalamin (vitamin B-12) 1,000 mcg PO DAILY 04/03/21 03/28/23 History 1,000 mcg tablet memantine 10 mg tablet 10 mg PO BID 04/03/21 03/28/23 History aspirin 81 mg tablet,delayed 81 mg PO DAILY 06/14/22 03/28/23 History release (Adult Aspirin Regimen) cetirizine 10 mg tablet 10 mg PO DAILY PRN Congestion 06/14/22 03/28/23 History ginkgo biloba leaf extract 120 1 tablet PO DAILY 06/14/22 03/28/23 History mg-choline bitartrate 110 mg tablet [facility] ipratropium bromide 21 mcg (0.03 See Rx Instructions .Route 06/14/22 03/28/23 Rx %) nasal spray .COMPLEX #90 mL docusate sodium 100 mg capsule 100 mg PO BID 07/22/22 03/28/23 History (Colace) atorvastatin 20 mg tablet 20 mg PO DAILY #90 tabs 01/22/23 03/28/23 Rx brimonidine 0.2 %-timolol 0.5 % 1 drp EACH EYE Q12H 03/28/23
--- NOTE | 2023-03-28 11:02 | ADMGEN ---
This patient, Ulysses Lane, was admitted to [facility]. Patient/family oriented to hospital policies and general routines including ID bracelet, bed and alarms, visiting hours, pain management, procedures, bathroom and other care routines, personal items, smoking policy, room service/diet, and visiting hours. Information on how to activate the Rapid Response Team has been discussed. Patient/Family are encouraged to report perceived risks to care and to ask questions if they do not understand what they are told or what they should do.
--- NOTE | 2023-03-28 13:01 | PM.CNCAR ---
Assessment and Plan Assessment and plan (1) Elevated troponin: Code(s): R79.89 - Other specified abnormal findings of blood chemistry Status: Acute Assessment and Plan: Patient presented for confusion and weakness. Sister had reported to ED that over the last one month, he has had worsening confusion and more difficulty performing daily tasks. This had progressively worsened over the past week. He did not report any chest pain at home. ER workup showed initial troponin of 0.202, with repeat levels at 0.205, 0.216, and 0.212. 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 Repeat EKG without ischemic changes. His troponin levels are flat, not indicative of an acute coronary syndrome. Workup of confusion and weakness as per the primary team. Do not recommend additional cardiac workup at this time. Cardiology will sign off, please call us back if needed. History of Present Illness History of Present Illness Consult date/time: 03/28/23 13:01 Requesting physician: Olya Calvert MD Consult reason: Other (Elevated troponin) Reason For Visit: NSTEMI,Weakness Narrative: We are consulted for elevated troponin. Unable to obtain any history from the patient. No family at bedside during my evaluation. Therefore, all history obtained from patient's medical team and his chart. This is a 78 year old male with hypertension, peripheral vascular disease, dementia who presented to the ED for confusion and weakness. Sister had reported to ED that over the last one month, he has had worsening confusion and more difficulty performing daily tasks. This had progressively worsened over the past week. He did not report any chest pain at home. ER workup showed initial troponin of 0.202, with repeat levels at 0.205, 0.216, and 0.212. 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 Repeat EKG without ischemic changes. Review of Systems Review of Systems: ROS unobtainable: Yes unobtainable due to mental status PMFSH Past Medical History Medical History Chronic kidney disease, stage 3 (moderate) Chronic kidney disease, stage 3 (moderate) (01/07/19) Colon cancer screening Elevated prostate specific antigen [PSA] Essential (primary) hypertension Primary open-angle glaucoma, bilateral, stage unspecified Unspecified iridocyclitis Family History Family History Father Carcinoma of colon Patient's father is Family history of malignant neoplasm Mother Patient's mother is Family history unknown Social History Social History Smoking packs per day: 0.5 Smoking cigarettes per day: 10.0 Years smoked: 50 Smoking pack-years: 25.00 Smoking status: Current every day smoker Tobacco type: cigarettes Alcohol intake: never Alcohol use details: social Substance use: never Substance use type: does not use Lack of Transportation: YES Lack of Food: Never True Current Housing: I Have Housing Concerned About Future Housing: No Difficulty Paying Gas/Electric Bills: No Difficulty Paying for Meds: No Currently Unemployed: No Education: High School Diploma/GED Difficulty w/ Childcare or Family Care: No Living arrangements: with family Spiritual care concerns: No Meds Home Medications and Allergies Home Medications Medication Instructions Recorded Confirmed Type cyanocobalamin (vitamin B-12) 1,000 mcg PO DAILY 04/03/21 03/28/23 History 1,000 mcg tablet memantine 10 mg tablet 10 mg PO BID 04/03/21 03/28/23 History aspirin 81 mg tablet,delayed 81 mg PO DAILY 06/14/22 03/28/23 History release (Adult Aspirin Regimen) cetirizine 10 mg tablet 10 mg PO DAILY PRN Congestion 06/14/22 03/28/23 History ginkgo biloba leaf extract 120 1 tablet PO DAILY 06/14/22 03/28/23 History mg-choline bitartrate 1
[2023-03-28] MEDS: BRIMONIDINE TARTRATE 0.2% OP SOLN 5 ML BTL 1 DROP EACH EYE (21:15)
[2023-03-28] MEDS: TIMOLOL MALEATE 0.5% OP SOLN 5 ML BOTTLE 1 DROP EACH EYE (21:15)
[2023-03-29 04:56] VITALS: BP 123/73; PULSE 73; RESP 16; TEMP 37.4; O2SAT 97
[2023-03-29 06:47] LABS: Anion Gap 9 mmol/L (8-16); Blood Urea Nitrogen 21 mg/dL (9-20); Calcium 8.8 mg/dL (8.4-10.2); Carbon Dioxide 23 mmol/L (22-30); Chloride 110 mmol/L (98-107); Estimated CRCL calculation 53 ml/min; Estimated Glomerular Filt Rate > 60; Glucose 89 mg/dL (65-110); Potassium 3.4 mmol/L (3.4-5.0); Sodium 142 mmol/L (137-145)
[2023-03-29 06:50] LABS: Basophils Percent Auto 0.3 % (0.2-1.2); Eosinophils Absolute Auto 0.1 K/mm3 (0-0.3); Eosinophils Percent Auto 1.4 % (0-4.4); Hematocrit 37.3 % (42.0-52.0); Hemoglobin 12.3 g/dL (14.0-18.0); Immature Granulocyte Absolute 0.09 K/mm3 (0.00-0.031); Immature Granulocyte Percent A 1.2 % (0-0.5); Lymphocytes Absolute Auto 1.05 K/mm3 (0.9-3.2); Lymphocytes Percent Auto 13.6 % (18.3-44.2); Mean Corpuscular Hemoglobin 29.3 pg (26-34); Mean Corpuscular Volume 88.8 fl (80-100); Mean Platelet Volume 10.8 fl (7.4-10.4); Monocytes Absolute Auto 0.8 K/mm3 (0.1-0.6); Monocytes Percent Auto 9.8 % (2.6-8.5); Neutrophils Absolute Auto 5.7 K/mm3 (1.3-6.7); Neutrophils Percent Auto 73.7 % (45.5-73.1); Platelet Count Result 205 k/mm3 (150-375); Red Cell Distribution Width 13.3 % (11.5-14.5); White Blood Count 7.7 K/mm3 (4.5-10.0)
[2023-03-29] MEDS: ASPIRIN 81 MG ENTERIC TABLET PO (08:39)
[2023-03-29] MEDS: THIAMINE HCL 100 MG TABLET 200 MG PO (08:39)
[2023-03-29] MEDS: CYANOCOBALAMIN 1,000 MCG TABLET 1000 MCG PO (08:39)
[2023-03-29] MEDS: MEMANTINE 10 MG TABLET PO ×2 (08:39→17:10)
[2023-03-29] MEDS: ATORVASTATIN 20 MG TABLET PO (08:39)
[2023-03-29] MEDS: DOCUSATE SODIUM 100 MG CAPSULE PO ×2 (08:40→17:10)
[2023-03-29] MEDS: BRIMONIDINE TARTRATE 0.2% OP SOLN 5 ML BTL 1 DROP EACH EYE ×2 (08:40→20:54)
[2023-03-29] MEDS: ENOXAPARIN 40 MG/0.4 ML SYRINGE SUB-Q (08:50)
[2023-03-29] MEDS: TIMOLOL MALEATE 0.5% OP SOLN 5 ML BOTTLE 1 DROP EACH EYE ×2 (08:51→20:54)
[2023-03-29] MEDS: THIAMINE HCL 50 MG TABLET PO (10:05)
[2023-03-29 10:52] LABS: Ammonia < 9 umol/L (9-30)
[2023-03-29 11:29] LABS: CRP 21.4 mg/dL (<1.0)
[2023-03-29 13:09] VITALS: BMI 21.9
[2023-03-29 14:00] VITALS: BP 112/40; PULSE 65; RESP 24; TEMP 36.9; O2SAT 100
--- NOTE | 2023-03-29 15:18 | PM.IMPN ---
Progress Note: A&P Assessment and Plan (1) Acute encephalopathy: Code(s): G93.40 - Encephalopathy, unspecified Status: Acute Assessment and Plan: Unclear etiology at this time -per sister, he usually dresses himself and is able to get on a bus to go to a day clinic but when he showed up he was not wearing any underwear and was very confused -UA did not show any signs of infection, viral panel was normal, CXR without PNA, KUB with no acute findings, liver function and ammonia is okay, TSH within normal limits. CT head without acute pathology -I did speak to the radiologist about the possible sinusitis, there are no worrisome features to this and they do not recommend any further imaging as they do have a clear picture of the area. I don't think this is causing his AMS--no fevers, wbc, etc -CRP is increasing, no anion gap -will obtain ABG, procalcitonin, and blood cultures. Brain MRI also ordered but unlikely pt will be able to comply at this time. UDS also ordered -consider LP although meningitis much less likely as he has no meningeal signs, symptoms and vitals and white blood cell count are normal. RPR normal in the past (2019) -would also consider progression of dementia although this seems fairly abrupt which is not as common (2) Elevated troponin: Code(s): R79.89 - Other specified abnormal findings of blood chemistry Status: Acute Assessment and Plan: Troponins remain elevated and flat -no complaints of chest pain or changes on EKG -cardiology consulted and does not feel further cardiac workup is warranted at this time. (3) Acute non-ST elevation myocardial infarction (NSTEMI): Code(s): I21.4 - Non-ST elevation (NSTEMI) myocardial infarction Status: Acute Assessment and Plan: Troponins remain elevated and flat -no complaints of chest pain or changes on EKG -cardiology consulted and does not feel further cardiac workup is warranted at this time (4) Weakness: Code(s): R53.1 - Weakness Status: Acute Assessment and Plan: When more alert will order PT/OT eval (5) History of dementia: Code(s): Z86.59 - Personal history of other mental and behavioral disorders Status: Acute Assessment and Plan: as above (6) Multiple falls: Code(s): R29.6 - Repeated falls Status: Acute Assessment and Plan: When alert and able to follow commands will order PT eval -fall precautions (7) Chronic kidney disease, stage 3 (moderate): Qualifiers: Chronic kidney disease stage 3 subtype: unspecified whether 3a or 3b Qualified Code(s): N18.30 - Chronic kidney disease, stage 3 unspecified Code(s): N18.3 - Chronic kidney disease, stage 3 (moderate) Status: Acute Assessment and Plan: BUN and creatinine stable Plan confirmed with sister pt is full code Time Spent With Patient Time with patient: 25 - 35 minutes Subjective Date/time seen: 03/29/23 15:18 Interval history: Pt is a 78-year-old male here for altered mental status. Patient is very confused and does not answer any questions or follow any commands. I called and spoke to his sister. She states that although patient does have dementia, he usually dresses himself and gets on a bus to go to a day program and has been acting much different the last week or so. So much so, that the day program actually sent him to the emergency room due to this. He lives with his sister who states she has not noticed any cough or infection that she has noticed. He has not started any new medications and does not do any drugs. She states he has not been eating as much lately. Review of Systems Review of Systems: All systems reviewed & are unremarkable except as noted in HPI and below Exam Narrative: General: pt resting comfortably in bed in NAD HEENT: normocephalic Neck: supple, no meningeal signs. able to move head normal ra
[2023-03-29 15:47] LABS: Alveolar/Arterial O2 Gradient 46.5 mmHg; Base Excess ABG -0.3 mEq/l (+/-2.0); Fractional Inspired Oxygen 21 %; HCO3 ABG 22.3 mEq/l (22.0-26.0); Oxygen Content ABG 17.4 %vol (16.0-22.0); Oxygen Saturation ABG 94.6 % (95.0-100.0); PCO2 ABG 30.7 mmHg (35.0-45.0); PO2 ABG 66.5 mmHg (80.0-100.0); PO2 FiO2 Ratio Arterial Blood 3.17 %; Total Hemoglobin 13.3 g/dL (12.0-18.0); pH ABG 7.479 (7.350-7.450)
[2023-03-29 15:49] LABS: Modified Allen's Test Pass; Site Drawn LEFT RADIAL
[2023-03-29 17:20] LABS: Lactic Acid Reflex 1.6 mmol/L (0.7-2.0)
[2023-03-29 17:55] LABS: Procalcitonin 0.1 ng/mL
[2023-03-29 20:34] VITALS: BP 143/74; PULSE 61; RESP 16; TEMP 36.4; O2SAT 96
[2023-03-30 04:23] VITALS: BP 142/87; PULSE 59; RESP 16; TEMP 36.3; O2SAT 96
[2023-03-30 06:22] LABS: Basophils Percent Auto 0.4 % (0.2-1.2); Eosinophils Absolute Auto 0.2 K/mm3 (0-0.3); Eosinophils Percent Auto 2.4 % (0-4.4); Hematocrit 40.6 % (42.0-52.0); Hemoglobin 13.2 g/dL (14.0-18.0); Immature Granulocyte Absolute 0.02 K/mm3 (0.00-0.031); Immature Granulocyte Percent A 0.3 % (0-0.5); Lymphocytes Absolute Auto 1.12 K/mm3 (0.9-3.2); Lymphocytes Percent Auto 15.6 % (18.3-44.2); Mean Corpuscular HGB Conc 32.5 g/dl (32-36); Mean Corpuscular Hemoglobin 29.2 pg (26-34); Mean Corpuscular Volume 89.8 fl (80-100); Mean Platelet Volume 10.7 fl (7.4-10.4); Monocytes Absolute Auto 0.7 K/mm3 (0.1-0.6); Monocytes Percent Auto 9.2 % (2.6-8.5); Neutrophils Absolute Auto 5.2 K/mm3 (1.3-6.7); Neutrophils Percent Auto 72.1 % (45.5-73.1); Platelet Count Result 223 k/mm3 (150-375); Red Blood Count 4.52 M/mm3 (4.6-6.20); Red Cell Distribution Width 13.2 % (11.5-14.5); White Blood Count 7.2 K/mm3 (4.5-10.0)
[2023-03-30 06:40] LABS: Anion Gap 8 mmol/L (8-16); Blood Urea Nitrogen 22 mg/dL (9-20); Calcium 9.2 mg/dL (8.4-10.2); Carbon Dioxide 26 mmol/L (22-30); Chloride 108 mmol/L (98-107); Estimated CRCL calculation 57 ml/min; Estimated Glomerular Filt Rate > 60; Glucose 102 mg/dL (65-110); Potassium 3.8 mmol/L (3.4-5.0); Sodium 142 mmol/L (137-145)
[2023-03-30 07:00] LABS: CRP 21.8 mg/dL (<1.0)
[2023-03-30] MEDS: LORazepam INJ (*CRX) 2 MG/ML VIAL IV PUSH (08:20)
--- NOTE | 2023-03-30 09:17 | PM.IMPN ---
Progress Note: A&P Assessment and Plan (1) Acute encephalopathy: Code(s): G93.40 - Encephalopathy, unspecified Status: Acute Assessment and Plan: Patient has had a generally stable course thus far and is below his reported baseline. Question a more vascular dementia type sharp decline possibly. Unclear on the elevated CRP and underlying inflammation. - No acute findings on chemistries/coags/hematalogical lab markers. - There are no fevers or signs of infection. - Blood cultures negative at this time. - Trend CRP, recheck procal and cxr in the am. - CTA head/neck to rule out carotid/vascular disease. - Check vitamin levels, start IV thiamine repletion - D5 added (2) Elevated troponin: Code(s): R79.89 - Other specified abnormal findings of blood chemistry Status: Acute Assessment and Plan: Troponins remain elevated and flat -no complaints of chest pain or changes on EKG -cardiology consulted and does not feel further cardiac workup is warranted at this time. (3) Acute non-ST elevation myocardial infarction (NSTEMI): Code(s): I21.4 - Non-ST elevation (NSTEMI) myocardial infarction Status: Acute Assessment and Plan: Troponins remain elevated and flat -no complaints of chest pain or changes on EKG -cardiology consulted and does not feel further cardiac workup is warranted at this time (4) Weakness: Code(s): R53.1 - Weakness Status: Acute Assessment and Plan: When more alert will order PT/OT eval (5) History of dementia: Code(s): Z86.59 - Personal history of other mental and behavioral disorders Status: Acute Assessment and Plan: Dementia, as noted. (6) Multiple falls: Code(s): R29.6 - Repeated falls Status: Acute Assessment and Plan: - Fall precautions, pt/ot eval. (7) Chronic kidney disease, stage 3 (moderate): Qualifiers: Chronic kidney disease stage 3 subtype: unspecified whether 3a or 3b Qualified Code(s): N18.30 - Chronic kidney disease, stage 3 unspecified Code(s): N18.3 - Chronic kidney disease, stage 3 (moderate) Status: Acute Assessment and Plan: Stable. - Add IVF today as intake poor, D5LR at 100. (8) Decreased oral intake: Code(s): R63.8 - Other symptoms and signs concerning food and fluid intake Status: Acute Assessment and Plan: Poor intake over the last month, having some difficulty with oral medications per RN. No acute signs of aspiration. Will have ST eval. Time Spent With Patient Time with patient: Greater than 35 minutes Subjective Date/time seen: 03/30/23 09:17 Interval history: Ulysses Lane is a 78 year old male with history of ckd, htn, pvd, and dementia who has been living at home with a sister. He has had one month of worsening confusion and mental status, although it appears to have accelerated in the last week. This morning he is able to answer simple questions and oriented to self. Review of Systems Review of Systems: All systems reviewed & are unremarkable except as noted in HPI and below Exam Narrative: GENERAL APPEARANCE: Appears to be in no acute distress. HEAD: normocephalic atraumatic EYES: PERRL ENT: no nasal discharge, poor dentition. NECK: Neck supple, trachea midline. CARDIAC: Normal S1/S2. Rhythm is regular. No murmurs, rubs, or gallops. No cyanosis or pallor. Extremities are warm and well perfused. LUNGS: Clear to auscultation without rales, rhonchi, wheezing or diminished breath sounds. Respirations even and unlabored. ABDOMEN: BS positive x 4 quadrants. Soft, nondistended, nontender. No guarding or rebound. MSK: No joint tenderness/swelling, fair strength in all extremities. PERIPHERAL VASCULAR: Peripheral pulses palpable. Normal perfusion, cap refill <2 seconds. No edema. NEURO: Follows commands. Moving all extremities. SKIN: [place] without lesions or erupti
[2023-03-30] MEDS: NICOTINE (*PBKC) 14 MG PATCH 1 PATCH TRANSDERM (09:54)
[2023-03-30] MEDS: MEMANTINE 10 MG TABLET PO (09:55)
[2023-03-30] MEDS: ATORVASTATIN 20 MG TABLET PO (09:55)
[2023-03-30] MEDS: ENOXAPARIN 40 MG/0.4 ML SYRINGE SUB-Q (09:55)
[2023-03-30] MEDS: TIMOLOL MALEATE 0.5% OP SOLN 5 ML BOTTLE 1 DROP EACH EYE ×2 (09:56→21:53)
[2023-03-30] MEDS: BRIMONIDINE TARTRATE 0.2% OP SOLN 5 ML BTL 1 DROP EACH EYE ×2 (09:56→21:53)
[2023-03-30 14:00] VITALS: BP 150/59; PULSE 58; RESP 22; TEMP 36.1; O2SAT 98
[2023-03-30] MEDS: DEXTROSE 5%/LACTATED RINGERS 1,000 ML 100 ML IV CONT (17:31)
[2023-03-30] MEDS: THIAMINE 500 MG/NS 100 ML 500 MG/100 ML BAG 200 MG IVPB ×2 (17:35→22:33)
[2023-03-30 19:55] LABS: Vitamin B12 > 1000.0 pg/mL (239-931)
[2023-03-30 22:00] VITALS: BP 139/91; PULSE 64; RESP 18; TEMP 36.8; O2SAT 97
[2023-03-30 22:53] LABS: Folic Acid 7.5 ng/mL (2.76->20)
[2023-03-31 01:48] LABS: Bacteria Urine None Seen /hpf; Non Pathogenic Casts 0-2; RBC Urine 0-2 /hpf (0-2); Squamous Epithelial Cell Urine None seen /hpf (Few); WBC Urine 0-5 /hpf (0-3)
[2023-03-31 01:49] LABS: Appearance Urine Clear (Clear); Blood Urine Negative (Negative); Color Urine Dark Yellow (Yellow); Glucose Urine UA Negative (Negative); Ketones Urine 1+ mg/dL (Negative); Protein Urine 1+ mg/dL (Negative); Specific Grav Ur 1.025 (1.001-1.035); pH Urine 6.5 (5.0-9.0)
[2023-03-31 01:50] LABS: Bilirubin Urine 2+ (Negative); Nitrate Urine Negative (Negative)
[2023-03-31 01:51] LABS: Add Urine Microscopic? YES; Leukocyte Esterase Ur Negative LEU/UL (NEGATIVE)
[2023-03-31 02:08] LABS: Amphetamine Screen Urine Negative (Negative); Barbiturate Screen Urine Negative (Negative); Benzodiazepines Screen Urine Negative (Negative); Cannabinoid Screen Urine Negative (Negative); Cocaine Screen Urine Negative (Negative); Methadone Screen Urine Negative (Negative); Opiate Screen Urine Negative (Negative); Phencyclidine Screen Urine Negative (Negative)
[2023-03-31 06:00] VITALS: BP 153/85; PULSE 58; RESP 21; TEMP 36.8; O2SAT 100
[2023-03-31 06:28] LABS: Basophils Percent Auto 0.3 % (0.2-1.2); Eosinophils Absolute Auto 0.2 K/mm3 (0-0.3); Eosinophils Percent Auto 3.2 % (0-4.4); Hematocrit 38.1 % (42.0-52.0); Hemoglobin 12.7 g/dL (14.0-18.0); Immature Granulocyte Absolute 0.02 K/mm3 (0.00-0.031); Immature Granulocyte Percent A 0.3 % (0-0.5); Lymphocytes Percent Auto 13.8 % (18.3-44.2); Mean Corpuscular HGB Conc 33.3 g/dl (32-36); Mean Corpuscular Hemoglobin 29.5 pg (26-34); Mean Corpuscular Volume 88.6 fl (80-100); Mean Platelet Volume 10.7 fl (7.4-10.4); Monocytes Absolute Auto 0.5 K/mm3 (0.1-0.6); Monocytes Percent Auto 7.6 % (2.6-8.5); Neutrophils Absolute Auto 4.9 K/mm3 (1.3-6.7); Neutrophils Percent Auto 74.8 % (45.5-73.1); Platelet Count Result 253 k/mm3 (150-375); Red Cell Distribution Width 13.2 % (11.5-14.5); White Blood Count 6.5 K/mm3 (4.5-10.0)
[2023-03-31] MEDS: THIAMINE 500 MG/NS 100 ML 500 MG/100 ML BAG 200 MG IVPB ×3 (06:41→23:40)
[2023-03-31 06:48] LABS: Anion Gap 6 mmol/L (8-16); Blood Urea Nitrogen 16 mg/dL (9-20); Carbon Dioxide 27 mmol/L (22-30); Chloride 108 mmol/L (98-107); Estimated CRCL calculation 57 ml/min; Estimated Glomerular Filt Rate > 60; Glucose 111 mg/dL (65-110); Potassium 3.4 mmol/L (3.4-5.0); Sodium 141 mmol/L (137-145)
[2023-03-31 06:56] LABS: CRP 16.9 mg/dL (<1.0)
[2023-03-31 07:02] LABS: Procalcitonin 0.1 ng/mL
[2023-03-31] MEDS: MEMANTINE 10 MG TABLET PO ×2 (09:38→17:55)
[2023-03-31] MEDS: DOCUSATE SODIUM 100 MG CAPSULE PO ×2 (09:38→17:55)
[2023-03-31] MEDS: NICOTINE (*PBKC) 14 MG PATCH 1 PATCH TRANSDERM (09:38)
[2023-03-31] MEDS: CYANOCOBALAMIN 1,000 MCG TABLET 1000 MCG PO (09:38)
[2023-03-31] MEDS: ATORVASTATIN 20 MG TABLET PO (09:38)
[2023-03-31] MEDS: ASPIRIN 81 MG ENTERIC TABLET PO (09:38)
[2023-03-31] MEDS: BRIMONIDINE TARTRATE 0.2% OP SOLN 5 ML BTL 1 DROP EACH EYE ×2 (09:39→20:01)
[2023-03-31] MEDS: ENOXAPARIN 40 MG/0.4 ML SYRINGE SUB-Q (09:39)
[2023-03-31] MEDS: TIMOLOL MALEATE 0.5% OP SOLN 5 ML BOTTLE 1 DROP EACH EYE ×2 (09:39→20:01)
--- NOTE | 2023-03-31 10:49 | PM.IMPN ---
Progress Note: A&P Assessment and Plan (1) Acute encephalopathy: Code(s): G93.40 - Encephalopathy, unspecified Status: Acute Assessment and Plan: Patient has had a generally stable course thus far and is below his reported baseline. Question a more vascular dementia type sharp decline possibly. Unclear on the elevated CRP and underlying inflammation. - No acute findings on chemistries/coags/hematalogical lab markers. - There are no fevers or signs of infection. - Blood cultures negative at this time. - Trend CRP, recheck procal and cxr in the am. - CTA head/neck to rule out carotid/vascular disease. - Check vitamin levels, start IV thiamine repletion - D5 added (2) Elevated troponin: Code(s): R79.89 - Other specified abnormal findings of blood chemistry Status: Acute Assessment and Plan: Troponins remain elevated and flat -no complaints of chest pain or changes on EKG -cardiology consulted and does not feel further cardiac workup is warranted at this time. (3) Acute non-ST elevation myocardial infarction (NSTEMI): Code(s): I21.4 - Non-ST elevation (NSTEMI) myocardial infarction Status: Acute Assessment and Plan: Troponins remain elevated and flat -no complaints of chest pain or changes on EKG -cardiology consulted and does not feel further cardiac workup is warranted at this time (4) Weakness: Code(s): R53.1 - Weakness Status: Acute Assessment and Plan: Ordered PT OT evaluation to attempt discharge planning (5) History of dementia: Code(s): Z86.59 - Personal history of other mental and behavioral disorders Status: Acute Assessment and Plan: Dementia, as noted. (6) Multiple falls: Code(s): R29.6 - Repeated falls Status: Acute Assessment and Plan: - Fall precautions, pt/ot eval. (7) Chronic kidney disease, stage 3 (moderate): Qualifiers: Chronic kidney disease stage 3 subtype: unspecified whether 3a or 3b Qualified Code(s): N18.30 - Chronic kidney disease, stage 3 unspecified Code(s): N18.3 - Chronic kidney disease, stage 3 (moderate) Status: Acute Assessment and Plan: Stable. -continue IVF today as intake poor, D5LR at 100. (8) Decreased oral intake: Code(s): R63.8 - Other symptoms and signs concerning food and fluid intake Status: Acute Assessment and Plan: Poor intake over the last month, having some difficulty with oral medications per RN. No acute signs of aspiration. Will have ST eval. -patient did not spontaneously eat any of his breakfast, asked tech to attempt to manually feed patient Time Spent With Patient Time with patient: 25 - 35 minutes Subjective Date/time seen: 03/31/23 10:49 Interval history: Ulysses Lane is a 78 year old male with history of ckd, htn, pvd, and dementia who has been living at home with a sister. He has had one month of worsening confusion and mental status, although it appears to have accelerated in the last week. Patient with decreased oral intake, continue IV fluids D5 LR with high-dose thiamine IV piggyback. Order PT and OT evaluation to help with discharge planning, suspect the patient will need permanent placement though he may improve with SNF. Review of Systems Review of Systems: ROS unobtainable: Yes unobtainable due to mental status (History of dementia and oriented to person only) Exam Narrative: GENERAL APPEARANCE: Appears to be in no acute distress. HEAD: normocephalic atraumatic EYES: PERRL ENT: no nasal discharge, poor dentition. NECK: Neck supple, trachea midline. CARDIAC: Normal S1/S2. Rhythm is regular. No murmurs, rubs, or gallops. No cyanosis or pallor. Extremities are warm and well perfused. LUNGS: Clear to auscultation without rales, rhonchi, wheezing or diminished breath sounds. Respirations even and unlabored. ABDOMEN: BS positive x 4 quadr
--- NOTE | 2023-03-31 12:08 | PCSTNOTE ---
Bedside swallowing evaluation attempted. Patient confused and unable to follow directions. He did take one sip of water by straw and showed no soft signs of aspiration, but was not able to participate further in swallowing evaluation due to current mental status. Patient will be seen again tomorrow and bedside swallowing evaluation will be completed if patient able.
--- NOTE | 2023-03-31 15:12 | PCPTNOTE ---
Attempted PT evaluation, but patient not following instructions and hard to keep awake. Attempted for 10 minutes, did put pillow next the R side of body to cushion his bony prominences as he was leaning on bed rails.
[2023-03-31] MEDS: DEXTROSE 5%/LACTATED RINGERS 1,000 ML 100 ML IV CONT (18:01)
[2023-03-31 20:44] VITALS: BP 150/81; PULSE 64; RESP 15; TEMP 36.5; O2SAT 99
[2023-04-01 05:23] VITALS: BP 134/75; PULSE 58; RESP 16; TEMP 36.3; O2SAT 97
[2023-04-01] MEDS: DEXTROSE 5%/LACTATED RINGERS 1,000 ML 100 ML IV CONT ×2 (05:25→16:05)
[2023-04-01] MEDS: ATORVASTATIN 20 MG TABLET PO (08:08)
[2023-04-01] MEDS: THIAMINE 500 MG/NS 100 ML 500 MG/100 ML BAG 200 MG IVPB (08:08)
[2023-04-01] MEDS: ENOXAPARIN 40 MG/0.4 ML SYRINGE SUB-Q (08:08)
[2023-04-01] MEDS: NICOTINE (*PBKC) 14 MG PATCH 1 PATCH TRANSDERM (08:08)
[2023-04-01] MEDS: BRIMONIDINE TARTRATE 0.2% OP SOLN 5 ML BTL 1 DROP EACH EYE ×2 (08:09→20:00)
[2023-04-01] MEDS: ASPIRIN 81 MG ENTERIC TABLET PO (08:09)
[2023-04-01] MEDS: DOCUSATE SODIUM 100 MG CAPSULE PO ×2 (08:09→16:05)
[2023-04-01] MEDS: TIMOLOL MALEATE 0.5% OP SOLN 5 ML BOTTLE 1 DROP EACH EYE ×2 (08:09→20:00)
[2023-04-01] MEDS: CYANOCOBALAMIN 1,000 MCG TABLET 1000 MCG PO (08:09)
[2023-04-01] MEDS: MEMANTINE 10 MG TABLET PO ×2 (08:09→16:05)
--- NOTE | 2023-04-01 13:08 | PCSTNOTE ---
Bedside swallowing evaluation completed. Cursory oral peripheral examination attempted, but patient is unable to follow commands. Patient was seen at bedside, sitting upright with head of bed elevated. Patient's eyes were closed unless being directly spoken to, and then he opened them briefly. Per nursing, patient received regular diet texture and thin liquids for lunch today. He was able to swallow only soft items (pudding, applesauce) and able to suck water through straw. He was not able to chew. He also could not suck thick liquids (supplement) through straw. Trials of thin liquid and pureed consistency were given during this bedside swallowing evaluation. Thin liquids given by cup. Due to patient's difficulty with alertness and impaired ability to follow commands, it is recommended that patient's diet be changed to: pureed consistency (level 4) and mildly thickened liquids to reduce the risk of potential aspiration and choking on food pieces, as patient is not chewing at this time. Please note that silent aspiration cannot be ruled out at bedside and can be evaluated with a modified barium swallow study if the patient is able to participate and follow instructions. No further speech therapy is recommended. Swallowing precaution recommendations placed in chart. Thank you for the referral of this patient.
--- NOTE | 2023-04-01 13:46 | P.PNIM_ITS ---
Progress Note: A&P Assessment and Plan (1) Acute encephalopathy: Code(s): G93.40 - Encephalopathy, unspecified Status: Acute Assessment and Plan: Patient has had a generally stable course thus far and is below his reported baseline. Question a more vascular dementia type sharp decline possibly. Unclear on the elevated CRP and underlying inflammation. * No acute findings on chemistries/coags/hematalogical lab markers. * There are no fevers or signs of infection. 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 Moderate nonspecific cerebral white matter disease, which likely represents chronic small vessel ischemic disease. No aneurysm or significant intracranial arterial stenosis. 0% stenosis of the proximal internal carotid arteries re lative to normal distal artery lumen diameters (NASCET criteria). * thiamine pending * B12 >1000 * MMA pending * folate 7.5 * homocysteine pending (2) Elevated troponin: Code(s): R79.89 - Other specified abnormal findings of blood chemistry Status: Acute Assessment and Plan: * Troponins remain elevated and flat * no complaints of chest pain or changes on EKG * cardiology consulted and does not feel further cardiac workup is warranted at this time. (3) Acute non-ST elevation myocardial infarction (NSTEMI): Code(s): I21.4 - Non-ST elevation (NSTEMI) myocardial infarction Status: Acute Assessment and Plan: * Troponins remain elevated and flat * no complaints of chest pain or changes on EKG * cardiology consulted and does not feel further cardiac workup is warranted at this time (4) Weakness: Code(s): R53.1 - Weakness Status: Acute Assessment and Plan: * PT/ OT evaluation for d/c planning - would likely benefit from SNF (5) History of dementia: Code(s): Z86.59 - Personal history of other mental and behavioral disorders Status: Chronic Assessment and Plan: * Dementia, as noted. (6) Multiple falls: Code(s): R29.6 - Repeated falls Status: Acute Assessment and Plan: * Fall precautions, pt/ot eval. (7) Chronic kidney disease, stage 3 (moderate): Qualifiers: Chronic kidney disease stage 3 subtype: unspecified whether 3a or 3b Qualified Code(s): N18.30 - Chronic kidney disease, stage 3 unspecified Code(s): N18.3 - Chronic kidney disease, stage 3 (moderate) Status: Acute Assessment and Plan: * Stable. * continue IVF today as intake poor, D5LR at 100. (8) Decreased oral intake: Code(s): R63.8 - Other symptoms and signs concerning food and fluid intake Status: Acute Assessment and Plan: * Poor intake over the last month, having some difficulty with oral medications per RN. * No acute signs of aspiration. * ST evaluated - recommended pureed diet, and mildly thick liquids Subjective Date/time seen: 04/01/23 13:46 Interval history: Patient resting with eyes shut, will open when when spoken to, responds verbally minimally. In no acute distress. ROS difficult due to mentation status. Denies pain. Will continue to monitor and await d/c planning. Review of Systems Review of Systems: ROS unobtainable: Yes unobtainable due to mental status (History of dementia and oriented to person only) Exam Narrative: GENERAL APPEARANCE: Appears to be in no acute d
--- NOTE | 2023-04-01 13:46 | PM.IMPN ---
Progress Note: A&P Assessment and Plan (1) Acute encephalopathy: Code(s): G93.40 - Encephalopathy, unspecified Status: Acute Assessment and Plan: Patient has had a generally stable course thus far and is below his reported baseline. Question a more vascular dementia type sharp decline possibly. Unclear on the elevated CRP and underlying inflammation. No acute findings on chemistries/coags/hematalogical lab markers. There are no fevers or signs of infection. 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 Moderate nonspecific cerebral white matter disease, which likely represents chronic small vessel ischemic disease. No aneurysm or significant intracranial arterial stenosis. 0% stenosis of the proximal internal carotid arteries relative to normal distal artery lumen diameters (NASCET criteria). thiamine pending B12 >1000 MMA pending folate 7.5 homocysteine pending (2) Elevated troponin: Code(s): R79.89 - Other specified abnormal findings of blood chemistry Status: Acute Assessment and Plan: Troponins remain elevated and flat no complaints of chest pain or changes on EKG cardiology consulted and does not feel further cardiac workup is warranted at this time. (3) Acute non-ST elevation myocardial infarction (NSTEMI): Code(s): I21.4 - Non-ST elevation (NSTEMI) myocardial infarction Status: Acute Assessment and Plan: Troponins remain elevated and flat no complaints of chest pain or changes on EKG cardiology consulted and does not feel further cardiac workup is warranted at this time (4) Weakness: Code(s): R53.1 - Weakness Status: Acute Assessment and Plan: PT/ OT evaluation for d/c planning - would likely benefit from SNF (5) History of dementia: Code(s): Z86.59 - Personal history of other mental and behavioral disorders Status: Chronic Assessment and Plan: Dementia, as noted. (6) Multiple falls: Code(s): R29.6 - Repeated falls Status: Acute Assessment and Plan: Fall precautions, pt/ot eval. (7) Chronic kidney disease, stage 3 (moderate): Qualifiers: Chronic kidney disease stage 3 subtype: unspecified whether 3a or 3b Qualified Code(s): N18.30 - Chronic kidney disease, stage 3 unspecified Code(s): N18.3 - Chronic kidney disease, stage 3 (moderate) Status: Acute Assessment and Plan: Stable. continue IVF today as intake poor, D5LR at 100. (8) Decreased oral intake: Code(s): R63.8 - Other symptoms and signs concerning food and fluid intake Status: Acute Assessment and Plan: Poor intake over the last month, having some difficulty with oral medications per RN. No acute signs of aspiration. ST evaluated - recommended pureed diet, and mildly thick liquids Subjective Date/time seen: 04/01/23 13:46 Interval history: Patient resting with eyes shut, will open when when spoken to, responds verbally minimally. In no acute distress. ROS difficult due to mentation status. Denies pain. Will continue to monitor and await d/c planning. Review of Systems Review of Systems: ROS unobtainable: Yes unobtainable due to mental status (History of dementia and oriented to person only) Exam Narrative: GENERAL APPEARANCE: Appears to be in no acute distress. HEAD: normocephalic atraumatic EYES: PERRLA, EOMI NECK: Neck supple, trachea midline. CARDIAC: RRR. No murmurs, rubs, or gallops. No cyanosis or pallor. Extremities are warm and well perfused. LUNGS: Clear to auscultation without rales, rhonchi, wheezing or diminished breath sounds. Respirations even and unlabored. ABDOMEN: BS positive. Soft, nondistended, nontender. No guarding or rebound. MSK: No joint tenderness/swelling, fair strength in all extremities. PERIPHERAL VASCULAR: Peripheral pulses
[2023-04-01 14:00] VITALS: BP 152/79; PULSE 54; RESP 16; TEMP 36.5; O2SAT 100
[2023-04-01] MEDS: ACETAMINOPHEN 325 MG TABLET 650 MG PO (16:05)
[2023-04-01 21:45] VITALS: BP 146/83; PULSE 85; RESP 16; TEMP 36; O2SAT 100
[2023-04-02] MEDS: DEXTROSE 5%/LACTATED RINGERS 1,000 ML 100 ML IV CONT ×2 (02:52→16:58)
[2023-04-02 05:58] VITALS: BP 145/69; PULSE 43; RESP 14; TEMP 36.1; O2SAT 100
[2023-04-02 06:31] LABS: Basophils Percent Auto 0.3 % (0.2-1.2); Eosinophils Absolute Auto 0.2 K/mm3 (0-0.3); Eosinophils Percent Auto 2.7 % (0-4.4); Hematocrit 42.3 % (42.0-52.0); Hemoglobin 12.7 g/dL (14.0-18.0); Immature Granulocyte Absolute 0.04 K/mm3 (0.00-0.031); Immature Granulocyte Percent A 0.6 % (0-0.5); Lymphocytes Absolute Auto 0.88 K/mm3 (0.9-3.2); Lymphocytes Percent Auto 13.7 % (18.3-44.2); Mean Corpuscular Hemoglobin 28.7 pg (26-34); Mean Corpuscular Volume 95.5 fl (80-100); Mean Platelet Volume 10.1 fl (7.4-10.4); Monocytes Absolute Auto 0.4 K/mm3 (0.1-0.6); Monocytes Percent Auto 6.9 % (2.6-8.5); Neutrophils Absolute Auto 4.9 K/mm3 (1.3-6.7); Neutrophils Percent Auto 75.8 % (45.5-73.1); Platelet Count Result 241 k/mm3 (150-375); Red Blood Count 4.43 M/mm3 (4.6-6.20); Red Cell Distribution Width 13.2 % (11.5-14.5); White Blood Count 6.4 K/mm3 (4.5-10.0)
[2023-04-02 06:42] LABS: Anion Gap 6 mmol/L (8-16); Blood Urea Nitrogen 7 mg/dL (9-20); Calcium 8.7 mg/dL (8.4-10.2); Carbon Dioxide 23 mmol/L (22-30); Chloride 109 mmol/L (98-107); Estimated CRCL calculation 66 ml/min; Estimated Glomerular Filt Rate > 60; Glucose 105 mg/dL (65-110); Phosphorus 2.8 mg/dL (2.5-4.5); Potassium 3.6 mmol/L (3.4-5.0); Sodium 138 mmol/L (137-145)
[2023-04-02] MEDS: ATORVASTATIN 20 MG TABLET PO (08:37)
[2023-04-02] MEDS: CYANOCOBALAMIN 1,000 MCG TABLET 1000 MCG PO (08:37)
[2023-04-02] MEDS: MEMANTINE 10 MG TABLET PO ×2 (08:37→16:59)
[2023-04-02] MEDS: DOCUSATE SODIUM 100 MG CAPSULE PO ×2 (08:37→16:59)
[2023-04-02] MEDS: TIMOLOL MALEATE 0.5% OP SOLN 5 ML BOTTLE 1 DROP EACH EYE ×2 (08:37→21:19)
[2023-04-02] MEDS: BRIMONIDINE TARTRATE 0.2% OP SOLN 5 ML BTL 1 DROP EACH EYE ×2 (08:37→21:19)
[2023-04-02] MEDS: ASPIRIN 81 MG ENTERIC TABLET PO (08:37)
[2023-04-02] MEDS: NICOTINE (*PBKC) 14 MG PATCH 1 PATCH TRANSDERM (08:40)
[2023-04-02] MEDS: ENOXAPARIN 40 MG/0.4 ML SYRINGE SUB-Q (08:41)
[2023-04-02 11:15] LABS: Homocysteine 10.2 umol/L (<11.4)
[2023-04-02 14:00] VITALS: BP 130/79; PULSE 73; RESP 14; TEMP 36.7; O2SAT 100
--- NOTE | 2023-04-02 15:48 | P.PNIM_ITS ---
Progress Note: A&P Assessment and Plan (1) Acute encephalopathy: Code(s): G93.40 - Encephalopathy, unspecified Status: Acute Assessment and Plan: Patient has had a generally stable course thus far and is below his reported baseline. Question a more vascular dementia type sharp decline possibly. Unclear on the elevated CRP and underlying inflammation. * No acute findings on chemistries/coags/hematalogical lab markers. * There are no fevers or signs of infection. 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 Moderate nonspecific cerebral white matter disease, which likely represents chronic small vessel ischemic disease. No aneurysm or significant intracranial arterial stenosis. 0% stenosis of the proximal internal carotid arteries re lative to normal distal artery lumen diameters (NASCET criteria). * thiamine sample not tested * B12 >1000 * MMA pending * folate 7.5 * homocysteine pending (2) Elevated troponin: Code(s): R79.89 - Other specified abnormal findings of blood chemistry Status: Acute Assessment and Plan: * Troponins remain elevated and flat * no complaints of chest pain or changes on EKG * cardiology consulted and does not feel further cardiac workup is warranted at this time. (3) Acute non-ST elevation myocardial infarction (NSTEMI): Code(s): I21.4 - Non-ST elevation (NSTEMI) myocardial infarction Status: Acute Assessment and Plan: * Troponins remain elevated and flat * no complaints of chest pain or changes on EKG * cardiology consulted and does not feel further cardiac workup is warranted at this time (4) Weakness: Code(s): R53.1 - Weakness Status: Acute Assessment and Plan: * PT/ OT evaluation for d/c planning - would likely benefit from SNF (5) History of dementia: Code(s): Z86.59 - Personal history of other mental and behavioral disorders Status: Chronic Assessment and Plan: * Dementia, as noted. (6) Multiple falls: Code(s): R29.6 - Repeated falls Status: Acute Assessment and Plan: * Fall precautions, pt/ot eval. (7) Chronic kidney disease, stage 3 (moderate): Qualifiers: Chronic kidney disease stage 3 subtype: unspecified whether 3a or 3b Qualified Code(s): N18.30 - Chronic kidney disease, stage 3 unspecified Code(s): N18.3 - Chronic kidney disease, stage 3 (moderate) Status: Acute Assessment and Plan: * Stable. * continue IVF today as intake poor, D5LR at 100. (8) Decreased oral intake: Code(s): R63.8 - Other symptoms and signs concerning food and fluid intake Status: Acute Assessment and Plan: * Poor intake over the last month, having some difficulty with oral medications per RN. * No acute signs of aspiration. * ST evaluated - recommended pureed diet, and mildly thick liquids * d/c IVF when PO intake improved Subjective Date/time seen: 04/02/23 15:48 Interval history: Patient sitting up in chair eating lunch on exam, alert and oriented but responds verbally minimally. In no acute distress. ROS difficult due to mentation status. Denies pain. Will continue to monitor and await d/c planning. Review of Systems Review of Systems: ROS unobtainable: Yes unobtainable due to mental status (History of dementia and oriented to person only) Exam Narra
--- NOTE | 2023-04-02 15:48 | PM.IMPN ---
Progress Note: A&P Assessment and Plan (1) Acute encephalopathy: Code(s): G93.40 - Encephalopathy, unspecified Status: Acute Assessment and Plan: Patient has had a generally stable course thus far and is below his reported baseline. Question a more vascular dementia type sharp decline possibly. Unclear on the elevated CRP and underlying inflammation. No acute findings on chemistries/coags/hematalogical lab markers. There are no fevers or signs of infection. 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 Moderate nonspecific cerebral white matter disease, which likely represents chronic small vessel ischemic disease. No aneurysm or significant intracranial arterial stenosis. 0% stenosis of the proximal internal carotid arteries relative to normal distal artery lumen diameters (NASCET criteria). thiamine sample not tested B12 >1000 MMA pending folate 7.5 homocysteine pending (2) Elevated troponin: Code(s): R79.89 - Other specified abnormal findings of blood chemistry Status: Acute Assessment and Plan: Troponins remain elevated and flat no complaints of chest pain or changes on EKG cardiology consulted and does not feel further cardiac workup is warranted at this time. (3) Acute non-ST elevation myocardial infarction (NSTEMI): Code(s): I21.4 - Non-ST elevation (NSTEMI) myocardial infarction Status: Acute Assessment and Plan: Troponins remain elevated and flat no complaints of chest pain or changes on EKG cardiology consulted and does not feel further cardiac workup is warranted at this time (4) Weakness: Code(s): R53.1 - Weakness Status: Acute Assessment and Plan: PT/ OT evaluation for d/c planning - would likely benefit from SNF (5) History of dementia: Code(s): Z86.59 - Personal history of other mental and behavioral disorders Status: Chronic Assessment and Plan: Dementia, as noted. (6) Multiple falls: Code(s): R29.6 - Repeated falls Status: Acute Assessment and Plan: Fall precautions, pt/ot eval. (7) Chronic kidney disease, stage 3 (moderate): Qualifiers: Chronic kidney disease stage 3 subtype: unspecified whether 3a or 3b Qualified Code(s): N18.30 - Chronic kidney disease, stage 3 unspecified Code(s): N18.3 - Chronic kidney disease, stage 3 (moderate) Status: Acute Assessment and Plan: Stable. continue IVF today as intake poor, D5LR at 100. (8) Decreased oral intake: Code(s): R63.8 - Other symptoms and signs concerning food and fluid intake Status: Acute Assessment and Plan: Poor intake over the last month, having some difficulty with oral medications per RN. No acute signs of aspiration. ST evaluated - recommended pureed diet, and mildly thick liquids d/c IVF when PO intake improved Subjective Date/time seen: 04/02/23 15:48 Interval history: Patient sitting up in chair eating lunch on exam, alert and oriented but responds verbally minimally. In no acute distress. ROS difficult due to mentation status. Denies pain. Will continue to monitor and await d/c planning. Review of Systems Review of Systems: ROS unobtainable: Yes unobtainable due to mental status (History of dementia and oriented to person only) Exam Narrative: GENERAL APPEARANCE: Appears to be in no acute distress. HEAD: normocephalic atraumatic EYES: PERRLA, EOMI NECK: Neck supple, trachea midline. CARDIAC: RRR. No murmurs, rubs, or gallops. No cyanosis or pallor. Extremities are warm and well perfused. LUNGS: Clear to auscultation without rales, rhonchi, wheezing or diminished breath sounds. Respirations even and unlabored. ABDOMEN: BS positive. Soft, nondistended, nontender. No guarding or rebound. MSK: No joint tenderness/swelling, fair strength in al
[2023-04-02 20:00] VITALS: O2SAT 93
[2023-04-02 21:13] VITALS: BP 157/81; PULSE 119; RESP 13; TEMP 37.1; O2SAT 93
[2023-04-03 01:10] LABS: Methylmalonic Acid 51 nmol/L (87-318)
[2023-04-03 05:25] VITALS: BP 152/75; PULSE 57; RESP 14; TEMP 37; O2SAT 93
[2023-04-03] MEDS: DEXTROSE 5%/LACTATED RINGERS 1,000 ML 100 ML IV CONT (06:27)
[2023-04-03 07:40] LABS: Hematocrit 37.1 % (42.0-52.0); Hemoglobin 12.1 g/dL (14.0-18.0); Mean Corpuscular HGB Conc 32.6 g/dl (32-36); Mean Corpuscular Hemoglobin 28.9 pg (26-34); Mean Corpuscular Volume 88.8 fl (80-100); Mean Platelet Volume 10.1 fl (7.4-10.4); Platelet Count Result 263 k/mm3 (150-375); Red Blood Count 4.18 M/mm3 (4.6-6.20); Red Cell Distribution Width 13.2 % (11.5-14.5)
[2023-04-03 07:53] LABS: Anion Gap 5 mmol/L (8-16); Blood Urea Nitrogen 9 mg/dL (9-20); Calcium 8.7 mg/dL (8.4-10.2); Carbon Dioxide 25 mmol/L (22-30); Chloride 108 mmol/L (98-107); Estimated CRCL calculation 66 ml/min; Estimated Glomerular Filt Rate > 60; Glucose 110 mg/dL (65-110); Potassium 3.6 mmol/L (3.4-5.0); Sodium 138 mmol/L (137-145)
[2023-04-03] MEDS: ENOXAPARIN 40 MG/0.4 ML SYRINGE SUB-Q (09:10)
[2023-04-03] MEDS: NICOTINE (*PBKC) 14 MG PATCH 1 PATCH TRANSDERM (09:10)
[2023-04-03] MEDS: MEMANTINE 10 MG TABLET PO ×2 (09:11→16:28)
[2023-04-03] MEDS: DOCUSATE SODIUM 100 MG CAPSULE PO ×2 (09:11→16:28)
[2023-04-03] MEDS: ASPIRIN 81 MG ENTERIC TABLET PO (09:11)
[2023-04-03] MEDS: ACETAMINOPHEN 325 MG TABLET 650 MG PO (09:11)
[2023-04-03] MEDS: ATORVASTATIN 20 MG TABLET PO (09:11)
[2023-04-03] MEDS: CYANOCOBALAMIN 1,000 MCG TABLET 1000 MCG PO (09:12)
[2023-04-03] MEDS: BRIMONIDINE TARTRATE 0.2% OP SOLN 5 ML BTL 1 DROP EACH EYE ×2 (09:13→20:38)
[2023-04-03] MEDS: TIMOLOL MALEATE 0.5% OP SOLN 5 ML BOTTLE 1 DROP EACH EYE ×2 (09:13→20:38)
--- NOTE | 2023-04-03 11:14 | PCPTNOTE ---
Attempted to see patient for PT, however patient was working with OT.
[2023-04-03 14:00] VITALS: BP 153/77; PULSE 56; RESP 16; TEMP 37.2; O2SAT 100
--- NOTE | 2023-04-03 14:46 | P.PNIM_ITS ---
Progress Note: A&P Assessment and Plan (1) Acute encephalopathy: Code(s): G93.40 - Encephalopathy, unspecified Status: Acute Assessment and Plan: Patient has had a generally stable course thus far and is below his reported baseline. Question a more vascular dementia type sharp decline possibly. Unclear on the elevated CRP and underlying inflammation. * No acute findings on chemistries/coags/hematalogical lab markers. * There are no fevers or signs of infection. 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 Moderate nonspecific cerebral white matter disease, which likely represents chronic small vessel ischemic disease. No aneurysm or significant intracranial arterial stenosis. 0% stenosis of the proximal internal carotid arteries re lative to normal distal artery lumen diameters (NASCET criteria). * thiamine sample not tested * B12 >1000 * MMA 51 L * folate 7.5 * homocysteine 10.2 (2) Elevated troponin: Code(s): R79.89 - Other specified abnormal findings of blood chemistry Status: Acute Assessment and Plan: * Troponins remain elevated and flat * no complaints of chest pain or changes on EKG * cardiology consulted and does not feel further cardiac workup is warranted at this time. (3) Acute non-ST elevation myocardial infarction (NSTEMI): Code(s): I21.4 - Non-ST elevation (NSTEMI) myocardial infarction Status: Acute Assessment and Plan: * Troponins remain elevated and flat * no complaints of chest pain or changes on EKG * cardiology consulted and does not feel further cardiac workup is warranted at this time (4) Weakness: Code(s): R53.1 - Weakness Status: Acute Assessment and Plan: * PT/ OT - would benefit from SNF, just awaiting placement for d/c (5) History of dementia: Code(s): Z86.59 - Personal history of other mental and behavioral disorders Status: Chronic Assessment and Plan: * Dementia, as noted. (6) Multiple falls: Code(s): R29.6 - Repeated falls Status: Acute Assessment and Plan: * Fall precautions, pt/ot eval. (7) Chronic kidney disease, stage 3 (moderate): Qualifiers: Chronic kidney disease stage 3 subtype: unspecified whether 3a or 3b Qualified Code(s): N18.30 - Chronic kidney disease, stage 3 unspecified Code(s): N18.3 - Chronic kidney disease, stage 3 (moderate) Status: Acute Assessment and Plan: * Stable. * d/c IVF (8) Decreased oral intake: Code(s): R63.8 - Other symptoms and signs concerning food and fluid intake Status: Acute Assessment and Plan: * Poor intake over the last month, having some difficulty with oral medications per RN. * No acute signs of aspiration. * ST evaluated - recommended pureed diet, and mildly thick liquids * d/c IVF Subjective Date/time seen: 04/03/23 14:46 Interval history: Patient sitting up in bed on exam, alert and oriented but responds verbally minimally. In no acute distress. Tolerating modified diet with no issue. ROS difficult due to mentation status. Denies pain. Will be able to d/c once placement approved. Review of Systems Review of Systems: ROS unobtainable: Yes unobtainable due to mental status (History of dementia and oriented to person only) Exam Narrative: GENERAL APPEARANCE: Appears to be
--- NOTE | 2023-04-03 14:46 | PM.IMPN ---
Progress Note: A&P Assessment and Plan (1) Acute encephalopathy: Code(s): G93.40 - Encephalopathy, unspecified Status: Acute Assessment and Plan: Patient has had a generally stable course thus far and is below his reported baseline. Question a more vascular dementia type sharp decline possibly. Unclear on the elevated CRP and underlying inflammation. No acute findings on chemistries/coags/hematalogical lab markers. There are no fevers or signs of infection. 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 Moderate nonspecific cerebral white matter disease, which likely represents chronic small vessel ischemic disease. No aneurysm or significant intracranial arterial stenosis. 0% stenosis of the proximal internal carotid arteries relative to normal distal artery lumen diameters (NASCET criteria). thiamine sample not tested B12 >1000 MMA 51 L folate 7.5 homocysteine 10.2 (2) Elevated troponin: Code(s): R79.89 - Other specified abnormal findings of blood chemistry Status: Acute Assessment and Plan: Troponins remain elevated and flat no complaints of chest pain or changes on EKG cardiology consulted and does not feel further cardiac workup is warranted at this time. (3) Acute non-ST elevation myocardial infarction (NSTEMI): Code(s): I21.4 - Non-ST elevation (NSTEMI) myocardial infarction Status: Acute Assessment and Plan: Troponins remain elevated and flat no complaints of chest pain or changes on EKG cardiology consulted and does not feel further cardiac workup is warranted at this time (4) Weakness: Code(s): R53.1 - Weakness Status: Acute Assessment and Plan: PT/ OT - would benefit from SNF, just awaiting placement for d/c (5) History of dementia: Code(s): Z86.59 - Personal history of other mental and behavioral disorders Status: Chronic Assessment and Plan: Dementia, as noted. (6) Multiple falls: Code(s): R29.6 - Repeated falls Status: Acute Assessment and Plan: Fall precautions, pt/ot eval. (7) Chronic kidney disease, stage 3 (moderate): Qualifiers: Chronic kidney disease stage 3 subtype: unspecified whether 3a or 3b Qualified Code(s): N18.30 - Chronic kidney disease, stage 3 unspecified Code(s): N18.3 - Chronic kidney disease, stage 3 (moderate) Status: Acute Assessment and Plan: Stable. d/c IVF (8) Decreased oral intake: Code(s): R63.8 - Other symptoms and signs concerning food and fluid intake Status: Acute Assessment and Plan: Poor intake over the last month, having some difficulty with oral medications per RN. No acute signs of aspiration. ST evaluated - recommended pureed diet, and mildly thick liquids d/c IVF Subjective Date/time seen: 04/03/23 14:46 Interval history: Patient sitting up in bed on exam, alert and oriented but responds verbally minimally. In no acute distress. Tolerating modified diet with no issue. ROS difficult due to mentation status. Denies pain. Will be able to d/c once placement approved. Review of Systems Review of Systems: ROS unobtainable: Yes unobtainable due to mental status (History of dementia and oriented to person only) Exam Narrative: GENERAL APPEARANCE: Appears to be in no acute distress. HEAD: normocephalic atraumatic EYES: PERRLA, EOMI NECK: Neck supple, trachea midline. CARDIAC: RRR. No murmurs, rubs, or gallops. No cyanosis or pallor. Extremities are warm and well perfused. LUNGS: Clear to auscultation without rales, rhonchi, wheezing or diminished breath sounds. Respirations even and unlabored. ABDOMEN: BS positive. Soft, nondistended, nontender. No guarding or rebound. MSK: No joint tenderness/swelling, fair strength in all extremities. PERIPHERAL VASCULAR: Peripheral pul
[2023-04-03 22:00] VITALS: BP 165/75; PULSE 57; RESP 14; TEMP 36.9; O2SAT 100
[2023-04-04 05:21] VITALS: BP 140/73; PULSE 56; RESP 13; TEMP 37; O2SAT 97
[2023-04-04 07:33] LABS: Hematocrit 35.8 % (42.0-52.0); Hemoglobin 11.4 g/dL (14.0-18.0); Mean Corpuscular HGB Conc 31.8 g/dl (32-36); Mean Corpuscular Hemoglobin 28.4 pg (26-34); Mean Corpuscular Volume 89.1 fl (80-100); Mean Platelet Volume 10.6 fl (7.4-10.4); Platelet Count Result 266 k/mm3 (150-375); Red Blood Count 4.02 M/mm3 (4.6-6.20); Red Cell Distribution Width 13.1 % (11.5-14.5); White Blood Count 5.1 K/mm3 (4.5-10.0)
[2023-04-04 07:55] LABS: Anion Gap 7 mmol/L (8-16); Blood Urea Nitrogen 10 mg/dL (9-20); Calcium 8.6 mg/dL (8.4-10.2); Carbon Dioxide 24 mmol/L (22-30); Chloride 108 mmol/L (98-107); Estimated CRCL calculation 60 ml/min; Estimated Glomerular Filt Rate > 60; Glucose 88 mg/dL (65-110); Potassium 3.4 mmol/L (3.4-5.0); Sodium 139 mmol/L (137-145)
[2023-04-04 08:00] VITALS: PULSE 56; RESP 13; O2SAT 97
[2023-04-04] MEDS: NICOTINE (*PBKC) 14 MG PATCH 1 PATCH TRANSDERM (09:39)
[2023-04-04] MEDS: CYANOCOBALAMIN 1,000 MCG TABLET 1000 MCG PO (09:40)
[2023-04-04] MEDS: MEMANTINE 10 MG TABLET PO (09:40)
[2023-04-04] MEDS: TIMOLOL MALEATE 0.5% OP SOLN 5 ML BOTTLE 1 DROP EACH EYE (09:40)
[2023-04-04] MEDS: ATORVASTATIN 20 MG TABLET PO (09:40)
[2023-04-04] MEDS: ASPIRIN 81 MG ENTERIC TABLET PO (09:40)
[2023-04-04] MEDS: DOCUSATE SODIUM 100 MG CAPSULE PO (09:40)
[2023-04-04] MEDS: ENOXAPARIN 40 MG/0.4 ML SYRINGE SUB-Q (09:40)
[2023-04-04] MEDS: BRIMONIDINE TARTRATE 0.2% OP SOLN 5 ML BTL 1 DROP EACH EYE (09:40)
--- NOTE | 2023-04-04 10:13 | PM.DS ---
DS: Admitting Diagnosis Discharge Date 04/04/23 Admitting Diagnosis Elevated troponin Acute non-ST elevated NH weakness Hx of dementia multiple falls chronic kidney disease stage 3 DS: Summary Hospital Course Reason for hospitalization: Elevated troponin NSTEMI weakness multiple falls Hx of Dementia Hospital Course: This is a 78 year old male who presented to the hosptial on 03/28/23 for evaluation of confusion and weakness. Workup in the hospital included a head CT which was negative for any acute intracranial process, sinusitis. KUB which shown no acute at abdominal abnormality. Brain MRI showed old infarcts in the left parietal lobe, chronic age-related changes. Head and neck CTA shown small old infarcts in the left parietal lobe, age-related changes, no aneurysm or stenosis seen, 0% stenosis of the proximal internal carotid arteries. Latest chest x-ray from 03/31/2023 showed mild atelectasis in the lower lung zones. He was noted to have some decreased oral intake and speech therapy the patient recommended pureed and mildly liquids. He did have some elevated troponins Cardiology was consulted however there was no intervention needed as the troponins remain flat. PT and OT also recommended SNF. Case management got approval today for SNF and patient will be discharged to [facility]. On examination today patient is alert oriented x1, sitting up in the bed eating breakfast. He denies any fever, chills, nausea, vomiting diarrhea, abdominal pain, shortness of breath, chest pain. He denies any pain or discomfort at this time. Labs today reveal hemoglobin 11.4, hematocrit 35.8 , otherwise essentially normal. Vital signs are stable, he is bradycardic in the 50s, he is afebrile, he is currently on room air. Patient is stable for discharge at this time to SNF. Final diagnosis: NSTEMI, generalized weakness, history of falls, history of dementia Status at Discharge Cognitive/behavioral status at discharge: Alert and oriented x1 Functional status at discharge: uses cane/walker Overall status at discharge: patient is progressing back to baseline Time Spent with Patient Time attestation: Total time spent providing and/or coordinating discharge services: Time spent: Greater than 30 minutes Exam Narrative: General: In no acute distress, well nourished Head: atraumatic, no encephalopathy Eyes: EOMI, PERRLA, sclera clear ENT: moist mucous membranes, nasal passages clear Neck: supple, no JVD, no adenopathy, trachea midline Cardiac: Normal S1 and S2. No murmur, gallops or friction rubs, peripheral pulses intact. Respiratory: Lungs clear to auscultation, no adventitious lung sounds Gastrointestinal: soft, non-distended, non-tender, normoactive bowel sounds. : voiding without difficulty. Extremities: moves all extremities well, no edema, good ROM, strength 5/5 Skin: clean, dry, intact. No wounds or lesions. Neuro: Alert and oriented x1, able to follow commands, does not know where he is or what year it is. cranial nerves intact, no neuro deficits. Psych: normal mood, normal affect, interactive, brief eye contact DS: Data Data Completed and Pending Completed studies during hospitalization: Abdomen x-ray Head CT Chest x-ray x3 Brain MRI Head neck CTA Pending studies at discharge: None Labs on day of discharge: Labs from last 24 hours 04/04/23 06:29 WBC 5.1 RBC 4.02 L Hgb 11.4 L Hct 35.8 L MCV 89.1 MCH 28.4 MCHC 31.8 L RDW 13.1 Plt Count 266 MPV 10.6 H Sodium 139 Potassium 3.4 Chloride 108 H Carbon Dioxide 24 Anion Gap 7 L BUN 10 Creatinine 1.00 Estim Creat Clear Calc 60 Estimated GFR > 60 Glucose 88 Calcium 8.6 Procedures/Treatments: None Imaging Radiologist's impression: XR abdomen/kub 1V 03/29/2023 08:32 INDICATION: History of stool impaction TECHNIQUE: KUB COMPARISON: None FINDINGS: Bowel gas pattern is normal. Moderate retained fecal material in the colon. Th
[2023-04-04 14:00] VITALS: BP 127/79; PULSE 54; RESP 16; TEMP 36.8; O2SAT 100
[2023-04-04 17:14] LABS: SARS-CoV-2 RNA PCR Negative (Negative)
[2023-04-04 20:00] VITALS: BP 141/74; PULSE 54; RESP 16; TEMP 36.4; O2SAT 99
== END 2023-04-04 21:00 ==
LOC: ANHED 21:17 → ANHIMU 03-28 09:38 → ANHCPC 03-28 13:20 → ANH3MEDSUR 03-29 06:53 → ANHCPC 04-05 07:28
PROVIDERS: Nurse Practitioner; Nurse Practitioner Acute Care; Nurse Practitioner Family; Admitting Provider General Practice; Emergency Provider Student in an Organized Health Care Education/Training Program; PCP Nurse Practitioner; Visit Provider Physician Assistant
DX: I21.4 Non-ST elevation (NSTEMI) myocardial infarction (principal); F03.90 Unspecified dementia, unspecified severity, without behavioral disturbance, psychotic disturbance, mood disturbance, and anxiety; G93.40 Encephalopathy, unspecified; R53.1 Weakness; R29.6 Repeated falls; I12.9 Hypertensive chronic kidney disease with stage 1 through stage 4 chronic kidney disease, or unspecified chronic kidney disease; N18.30 Chronic kidney disease, stage 3 unspecified; R63.8 Other symptoms and signs concerning food and fluid intake; I73.9 Peripheral vascular disease, unspecified; I44.0 Atrioventricular block, first degree; H40.1130 Primary open-angle glaucoma, bilateral, stage unspecified; Z20.822 Contact with and (suspected) exposure to COVID-19; Z99.89 Dependence on other enabling machines and devices; Z86.73 Personal history of transient ischemic attack (TIA), and cerebral infarction without residual deficits; F17.210 Nicotine dependence, cigarettes, uncomplicated; Z79.51 Long term (current) use of inhaled steroids; Z79.82 Long term (current) use of aspirin; Z79.899 Other long term (current) drug therapy
CPT/HCPCS: 36415; 36600; 70450; 70496; 70498; 70551; 71045; 74018; 80048; 80053; 80069; 80307; 81001; 82140; 82550; 82607; 82746; 82805; 83090; 83605; 83735; 83880; 83921; 84145; 84425; 84443; 84484; 85025; 85027; 85610; 85730; 86140; 87040; 87635; 87637; 92610; 93005; 96360; 96361; 96365; 96372; 96375; 97110; 97116; 97161; 97165; 97530; 97535; 99291; A9270; G0378; J1650; J2060; J3411; J7120; J7121; Q9967

== ENCOUNTER 2023-04-07 12:40 | Emergency (ER) | payer MEDICARE, SELFPAY ==
[2023-04-07] VITALS (12 sets, daily range): BP systolic 157–198; BP diastolic 90–99; PULSE 48–60; RESP 12–29; TEMP 36.6; O2SAT 98–100
--- NOTE | ~2023-04-07 | CT_ITS ---
EXAMINATION: CT brain wo con INDICATION: Headache COMPARISON: 03/30/2023 TECHNIQUE: Standard unenhanced head CT. The dose-length product (DLP) was 605.33 mGy-cm. The mA was a djusted according to patient size. Iterative reconstruction technique was employed. FINDINGS: No acute intraparenchymal hemorrhage. No evidence of mass lesion. No evidence of acute infa rction. There is mild periventricular and subcortical hypodensity probably related to small vessel is chemic disease. There is mild prominence of the sulci and ventricles related to cerebral atrophy. Int racranial calcified cerebral atherosclerosis is noted. No extra-axial collections. No mass effect or midline shift. The orbits and soft tissues are unremarkable. There is mild mucosal thickening of the paranasal sinuses. IMPRESSION: 1. No acute intracranial abnormality. 2. Age related findings. Reviewed, dictated and finalized at location F. HOUSE SELECTOR
--- NOTE | ~2023-04-07 | CT_ITS ---
EXAMINATION: CT cervical spine wo con DATE: 04/07/2023 14:24 INDICATION: Neck pain TECHNIQUE: Computed tomography (CT) of the cervical spine was performed without intravenous contrast. The dose-length product (DLP) was 210.45 mGy-cm. Automated exposure control and iterative reconstruc tion technique were employed. COMPARISON: 03/30/2023 FINDINGS: There are 2 mm of retrolisthesis of C6 on C7. Vertebral body alignment is otherwise normal. There is mild loss of intervertebral disc space height at C5-C6 and C6-7 and moderate loss of disc s pace height at C7-T1. There is no fracture. The odontoid process is intact. Small degenerative osteop hytes project from the anterior endplates of multiple vertebral bodies. There is multilevel mild face t and uncovertebral joint osteoarthritis. There is mild emphysema of the visualized lung apices. IMPRESSION: 1. Moderate cervical spondylosis without acute findings or significant interval change. Reviewed, dictated and finalized at location F. BANDER OPERATOR
--- NOTE | 2023-04-07 13:30 | ED.FALL ---
HPI - Fall General Chief Complaint: Fall Stated Complaint: unwitnessed glf Time Seen by Provider: 04/07/23 13:16 Source: EMS Mode of arrival: EMS Limitations: altered mental status History of Present Illness HPI Narrative: 78 YEARS OLD FEMALE CAME FROM CARE HOME BY AMBULANCE AFTER STAFF FOUND HIM ON THE FLOOR WITH A POSSIBLE UNWITNESSED GROUND LEVEL FALL. POSSIBLE HEAD PAIN, HISTORY OF DEMENTIA, PATIENT AT BASELINE. Related Data Home Medications Medication Instructions Recorded Confirmed cyanocobalamin (vitamin B-12) 1,000 mcg PO DAILY 04/03/21 03/28/23 1,000 mcg tablet memantine 10 mg tablet 10 mg PO BID 04/03/21 03/28/23 aspirin 81 mg tablet,delayed 81 mg PO DAILY 06/14/22 03/28/23 release (Adult Aspirin Regimen) cetirizine 10 mg tablet 10 mg PO DAILY PRN Congestion 06/14/22 03/28/23 ginkgo biloba leaf extract 120 1 tablet PO DAILY 06/14/22 03/28/23 mg-choline bitartrate 110 mg tablet ([facility]) docusate sodium 100 mg capsule 100 mg PO BID 07/22/22 03/28/23 (Colace) brimonidine 0.2 %-timolol 0.5 % 1 drp EACH EYE Q12H 03/28/23 03/28/23 eye drops (Combigan) thiamine HCl (vitamin B1) 250 mg 250 mg PO DAILY 03/28/23 03/28/23 tablet Allergies Allergy/AdvReac Type Severity Reaction Status Date / Time No Known Allergies Allergy Unknown Verified 03/28/23 14:09 Review of Systems Review of Systems: ROS unobtainable: Yes unobtainable due to mental status PMFSH Past Medical History Medical History Chronic kidney disease, stage 3 (moderate) Chronic kidney disease, stage 3 (moderate) (01/07/19) Colon cancer screening Elevated prostate specific antigen [PSA] Essential (primary) hypertension Primary open-angle glaucoma, bilateral, stage unspecified Unspecified iridocyclitis Family History Family History Father Carcinoma of colon Patient's father is Family history of malignant neoplasm Mother Patient's mother is Family history unknown Social History Social History Smoking packs per day: 0.5 Smoking cigarettes per day: 10.0 Years smoked: 60 Smoking pack-years: 30.00 Smoking status: Current every day smoker Tobacco type: cigarettes Alcohol intake: former Alcohol use details: social Substance use: never Substance use type: does not use Lack of Transportation: YES Lack of Food: Never True Current Housing: I Have Housing Concerned About Future Housing: No Difficulty Paying Gas/Electric Bills: No Difficulty Paying for Meds: No Currently Unemployed: No Education: High School Diploma/GED Difficulty w/ Childcare or Family Care: No Living arrangements: with family Spiritual care concerns: No Exam Narrative: GENERAL APPEARANCE: WELL-DEVELOPED, WELL-NOURISHED, LYING DOWN IN BED COMFORTABLE, DOES NOT LOOK IN PAIN OR DISTRESS, DOES NOT FOLLOW VERBAL COMMANDS, C-COLLAR ON SKIN: NORMAL COLOR HEAD: NORMOCEPHALIC, NONTRAUMATIC EYES: CLEAR CONJUNCTIVA ENT: OROPHARYNX NORMAL, EARS NORMAL, NOSE NORMAL NECK: C-COLLAR ON CHEST AND RESPIRATORY: AIRWAY PATENT, NO RESPIRATORY DISTRESS, NO ACCESSORY MUSCLE USE HEART: REGULAR RATE/RHYTHM ABDOMEN: SOFT, NONTENDER, NO ORGANOMEGALY, QUIET BOWEL SOUNDS VASCULAR: NORMAL PERIPHERAL PULSES, NORMAL CAPILLARY REFILL. MUSCULOSKELETAL: NORMAL RANGE OF MOTION, NONTENDER BACK NEUROLOGIC: ALERT, DISORIENTED X4 Course Vital Signs Vital signs: Vital Signs Temperature 36.6 C 04/07/23 12:41 Pulse Rate 52 L
--- NOTE | 2023-04-07 15:27 | PC.NURSE ---
removed c-collar per provider
== END 2023-04-07 15:38 ==
PROVIDERS: Emergency Provider Emergency Medicine; PCP Nurse Practitioner
DX: Z04.3 Encounter for examination and observation following other accident (principal); F03.90 Unspecified dementia, unspecified severity, without behavioral disturbance, psychotic disturbance, mood disturbance, and anxiety; I12.9 Hypertensive chronic kidney disease with stage 1 through stage 4 chronic kidney disease, or unspecified chronic kidney disease; N18.30 Chronic kidney disease, stage 3 unspecified; H40.1130 Primary open-angle glaucoma, bilateral, stage unspecified; F17.210 Nicotine dependence, cigarettes, uncomplicated; Z79.82 Long term (current) use of aspirin; M47.812 Spondylosis without myelopathy or radiculopathy, cervical region; W19.XXXA Unspecified fall, initial encounter
CPT/HCPCS: 70450; 72125; 99284

== ENCOUNTER 2023-09-18 19:28 | Emergency (ER) | payer MEDICARE, SELFPAY ==
--- NOTE | ~2023-09-18 | XR_ITS ---
EXAMINATION: XR pelvis 1-2V DATE: 09/18/2023 20:06 INDICATION: Fall TECHNIQUE: An anteroposterior view of the pelvis was obtained. COMPARISON: CT dated 02/28/2023 FINDINGS: Bone alignment is normal. No fracture. Bilateral hip osteoarthritis, mild on the right and moderate o n the left. Mild to moderate bilateral sacroiliac osteoarthritis. Chronic L4 superior endplate compre ssion fracture. Prominent endplate osteophytes in the visualized lower lumbar spine. IMPRESSION: 1. Degenerative skeletal changes and unchanged chronic L4 superior endplate compression fracture. No acute osseous abnormality. Reviewed, dictated and finalized at location A. IMPRESSION: 1. Degenerative skeletal changes and unchanged chronic L4 superior endplate com pression fracture. No acute osseous abnormality.
--- NOTE | ~2023-09-18 | XR_ITS ---
EXAMINATION: XR chest 1V DATE: 09/18/2023 20:06 INDICATION: Fall with head injury TECHNIQUE: frontal view of the chest was obtained. COMPARISON: Chest radiograph dated 03/31/2023 FINDINGS: Mild left basilar atelectasis. No other airspace opacities, pulmonary edema, pleural effusion or pneu mothorax. Mild cardiomegaly. IMPRESSION: 1. Mild left basilar atelectasis. No other acute cardiopulmonary disease. Reviewed, dictated and finalized at location A.
--- NOTE | ~2023-09-18 | CT_ITS ---
EXAMINATION: CT brain wo con DATE: 09/18/2023 20:03 INDICATION: Fall with head injury TECHNIQUE: Computed tomography (CT) of the head was performed without intravenous contrast. Sagittal and coronal reconstructions were performed. The mA was adjusted according to patient size. Iterative reconstruction technique was employed. The dose-length product was 605.33 mGy-cm. COMPARISON: head CT dated 04/07/2023 FINDINGS: No fracture. No acute intracranial hemorrhage, acute infarction or abnormal extra axial fluid collect ion. There is moderate scattered white matter hypoattenuation consistent with chronic small vessel is chemic disease. Symmetric prominence of the sulci and ventricles consistent with moderateage-appropri ate diffuse cerebral volume loss. No mass/mass effect. Changes of right intraocular lens replacement. The orbits, paranasal sinuses and mastoid air cells are normal. IMPRESSION: 1. No fracture or acute intracranial process. 2. Age-related changes including moderate diffuse volume loss and moderate scattered white matter hyp oattenuation consistent with chronic small vessel ischemic disease. Reviewed, dictated and finalized at location A. IMPRESSION: 1. No fracture or acute intracranial process. 2. Age-related changes including moderate diffuse volume loss and moderate scat tered white matter hypoattenuation consistent with chronic small vessel ischemi c disease.
--- NOTE | ~2023-09-18 | CT_ITS ---
EXAMINATION: CT cervical spine wo con DATE: 09/18/2023 20:03 INDICATION: Trauma with head injury TECHNIQUE: Computed tomography (CT) of the cervical spine was performed without intravenous contrast. Automated exposure control and iterative reconstruction technique were employed. The dose-length pro duct was 377.05 mGy-cm. COMPARISON: 04/07/2023 FINDINGS: Mild cervical dextrocurvature and upper thoracic levocurvature. Severe osteoarthritis at the atlantoa xial articulation. Vertebral body heights are normal. No fracture. Moderate disc height loss at T3-T4 and T4-T5. Mild disc height loss from C2-C3 through C7-T1 and at T2-T3. There are bridging or nearly bridging osteophytes from C5 through T5 consistent with diffuse idiopathic skeletal hyperostosis (DI SH). Disc bulges at C3-C4 and C4-C5 with minimal central canal stenosis and disc osteophyte complexes at C5-C6 and C6-C7 with mild central canal stenosis. Multilevel mild right-sided and moderate left-s ided cervical facet osteoarthritis. There is also moderate to severe lower cervical predominant uncov ertebral osteoarthritis. This contributes to moderate neural foraminal stenosis on the bilaterally at C6-C7 and mild stenosis at many of the remaining cervical and upper thoracic neural foramina. Cervic al soft tissues are unremarkable. Mild to moderate emphysema in the visualized upper lungs. IMPRESSION: 1. Mild to moderate cervical and moderate upper thoracic spondylosis. No acute osseous abnormality. 2. Mild to moderate emphysema. Reviewed, dictated and finalized at location A.
[2023-09-18 19:29] VITALS: BP 132/78; PULSE 61; RESP 15; TEMP 36.6; O2SAT 100
--- NOTE | 2023-09-18 20:15 | ED.FALL ---
HPI - Fall General Chief Complaint: Fall Stated Complaint: FALL, STRUCK HEAD, NO LOC Time Seen by Provider: 09/18/23 19:40 History of Present Illness HPI Narrative: Patient is a 78-year-old male with history of hypertension, CKD, encephalopathy here after a fall. Patient was reportedly standing by the nurse's station when he fell down striking his head. No loss of consciousness. He is reportedly AO x1 at baseline and he is currently at his baseline. He has no complaints and provides no history. Related Data Home Medications Medication Instructions Recorded Confirmed cyanocobalamin (vitamin B-12) 1,000 mcg PO DAILY 04/03/21 03/28/23 1,000 mcg tablet memantine 10 mg tablet 10 mg PO BID 04/03/21 03/28/23 aspirin 81 mg tablet,delayed 81 mg PO DAILY 06/14/22 03/28/23 release (Adult Aspirin Regimen) cetirizine 10 mg tablet 10 mg PO DAILY PRN Congestion 06/14/22 03/28/23 ginkgo biloba leaf extract 120 1 tablet PO DAILY 06/14/22 03/28/23 mg-choline bitartrate 110 mg tablet ([facility]) docusate sodium 100 mg capsule 100 mg PO BID 07/22/22 03/28/23 (Colace) brimonidine 0.2 %-timolol 0.5 % 1 drp EACH EYE Q12H 03/28/23 03/28/23 eye drops (Combigan) thiamine HCl (vitamin B1) 250 mg 250 mg PO DAILY 03/28/23 03/28/23 tablet Allergies Allergy/AdvReac Type Severity Reaction Status Date / Time No Known Allergies Allergy Unknown Verified 03/28/23 14:09 Review of Systems Review of Systems: ROS unobtainable: Yes unobtainable due to medical condition PMFSH Past Medical History Medical History Chronic kidney disease, stage 3 (moderate) Chronic kidney disease, stage 3 (moderate) (01/07/19) Colon cancer screening Elevated prostate specific antigen [PSA] Essential (primary) hypertension Primary open-angle glaucoma, bilateral, stage unspecified Unspecified iridocyclitis Family History Family History Father Carcinoma of colon Patient's father is Family history of malignant neoplasm Mother Patient's mother is Family history unknown Social History Social History Smoking packs per day: 0.5 Smoking cigarettes per day: 10.0 Years smoked: 60 Smoking pack-years: 30.00 Smoking status: Current every day smoker Tobacco type: cigarettes Alcohol intake: former Alcohol use details: social Substance use: never Substance use type: does not use Lack of Transportation: YES Lack of Food: Never True Current Housing: I Have Housing Concerned About Future Housing: No Difficulty Paying Gas/Electric Bills: No Difficulty Paying for Meds: No Currently Unemployed: No Education: High School Diploma/GED Difficulty w/ Childcare or Family Care: No Living arrangements: with family Spiritual care concerns: No Exam Narrative: GENERAL: Well-appearing, well-nourished, and in no acute distress. HEAD: Normocephalic, atraumatic. EYES: PERRLA and EOMI. ENT: Nares clear. Mucous membranes moist. NECK: Supple. No cervical spine tenderness or step-offs. CHEST: Clear to auscultation. No respiratory distress. No chest wall tenderness. HEART: Regular rate and rhythm. Normal peripheral pulses. ABDOMEN: Soft, nontender, nondistended. EXTREMITIES: Bilateral upper and lower extremities atraumatic with normal range of motion. SKIN: Warm, dry, no rash. NEURO: No focal deficits. Alert and oriented x1. Course Course Emergency Course: Chart review performed. Patient here from [facility] after a witnessed fall from standing. AOx1 at baseline. Triage vitals normal. Patient seen evaluated, nontoxic-appearing, provides no history, awake and oriented x1 at baseline which is what he is today. Will do screening head CT, cervical spine CT, chest x-ray, pelvis x-ray. Imaging with no acute findin
[2023-09-18 21:04] VITALS: BP 130/74; PULSE 61; RESP 15; O2SAT 100
== END 2023-09-18 21:43 ==
PROVIDERS: Emergency Provider Student in an Organized Health Care Education/Training Program; PCP Nurse Practitioner
DX: S09.90XA Unspecified injury of head, initial encounter (principal); I12.9 Hypertensive chronic kidney disease with stage 1 through stage 4 chronic kidney disease, or unspecified chronic kidney disease; N18.30 Chronic kidney disease, stage 3 unspecified; H40.1130 Primary open-angle glaucoma, bilateral, stage unspecified; G93.40 Encephalopathy, unspecified; F17.210 Nicotine dependence, cigarettes, uncomplicated; Z79.82 Long term (current) use of aspirin; Z79.899 Other long term (current) drug therapy; M48.56XA Collapsed vertebra, not elsewhere classified, lumbar region, initial encounter for fracture; J43.9 Emphysema, unspecified; M47.812 Spondylosis without myelopathy or radiculopathy, cervical region; M47.814 Spondylosis without myelopathy or radiculopathy, thoracic region; W19.XXXA Unspecified fall, initial encounter
CPT/HCPCS: 70450; 71045; 72125; 72170; 99284

== ENCOUNTER 2023-11-07 08:33 | Inpatient (IN) | payer MEDICARE, SELFPAY ==
[2023-11-07] VITALS (15 sets, daily range): BP systolic 100–131; BP diastolic 56–95; PULSE 64–127; RESP 8–19; TEMP 36.4–38.6; O2SAT 87–100; BMI 20.3
--- NOTE | ~2023-11-07 | XR_ITS ---
MODIFIED ESOPHAGRAM HISTORY: Choking episode TECHNIQUE: Modified barium esophagram was performed on 11/11/2023. I administered fluoroscopy and perf ormed the exam with speech pathologist. Patient was seated for lateral fluoroscopic imaging for liborio stion of thin liquids, pudding, solids and quantified amounts, followed by thin liquids in uncontroll ed amounts. This was recorded on tape. A single fluoroscopic spot image was also recorded. The DAP fo r this procedure was 0.9076 Gycm2. The amount of fluoroscopy time used during this procedure was 1.4 minutes. FINDINGS: Oral stage: Adequate function. Pharyngeal stage: Reduced laryngeal elevation and adduction. There is also reduced tongue base retrac tion. Multiple episodes of laryngeal penetration and aspiration. There is piriform sinus residue. Cervical/esophageal stage: Adequate function. IMPRESSION: Pharyngeal dysphagia with multiple episodes of laryngeal penetration and aspiration. Ple ase correlate with speech pathologist findings and specific feeding recommendations. Reviewed, dictated and finalized at location A. IMPRESSION: Pharyngeal dysphagia with multiple episodes of laryngeal penetratio n and aspiration. Please correlate with speech pathologist findings and specif ic feeding recommendations.
--- NOTE | ~2023-11-07 | XR_ITS ---
XR chest 1V portable 11/07/2023 09:56 Indication: Altered mental status Procedure: AP portable chest Comparison: Comparison to multiple prior studies sequentially, with oldest reviewed study dated 03/02. Findings: Patchy bilateral airspace disease. No heart size mildly enlarged. There is atherosclerosis of the aorta. No pneumothorax. No significant effusion. No acute osseous abnormality. Impression: 1: Patchy bilateral airspace disease, compatible with pneumonia. Reviewed, dictated and finalized at location B. Impression: 1: Patchy bilateral airspace disease, compatible with pneumonia.
--- NOTE | ~2023-11-07 | CT_ITS ---
EXAMINATION: CTA brain carotid DATE: 11/07/2023 10:12 INDICATION: Altered mental status. Unresponsive. TECHNIQUE: Computed tomographic angiography (CTA) of the head was performed without and with 100 mL O mnipaque-350 intravenous contrast. CTA of the neck was performed with intravenous contrast. Automated exposure control and iterative reconstruction technique were employed. The dose-length product was 1 846.02 mGy-cm. Maximum intensity projection and volume rendered 3D-reconstructions were created by rashad shultz technologist on a separate workstation. COMPARISON: Head CT 09/18/2023 FINDINGS: HEAD CTA: There are scattered areas of low attenuation in the cerebral white matter. There is no intr acranial hemorrhage, acute infarction, or abnormal intracranial mass lesion. The ventricles are aamir l in size. There is mucosal thickening in the paranasal sinuses. There are likely changes of right oc ular lens replacement surgery. The mastoid air cells are normal. Left vertebral artery is dominant. T here is no significant stenosis of basilar artery or the posterior cerebral arteries. The posterior c ommunicating arteries are normal. There is no significant stenosis of the intracranial internal carot id arteries or anterior or middle cerebral arteries. Anterior communicating artery is normal. There i s no aneurysm. NECK CTA: There is moderate emphysema. There is mild scarring at the lung apices. There are no pathol ogically enlarged lymph nodes. There is no significant stenosis of the vertebral arteries. There is m ild plaque in the proximal internal carotid arteries. There is 0% stenosis of the proximal right inte rnal carotid artery relative to normal distal artery lumen diameter (NASCET criteria). There is 0% st enosis of the proximal left internal carotid artery relative to normal distal artery lumen diameter. There are bridging endplate osteophytes at multiple levels in the spine, consistent with diffuse idio pathic skeletal hyperostosis (DISH). IMPRESSION: 1. Stable moderate nonspecific cerebral white matter disease, which likely represents chronic small v essel ischemic disease. 2. No aneurysm or significant intracranial arterial stenosis. 3. 0% stenosis of the proximal internal carotid arteries relative to normal distal artery lumen diame ters (NASCET criteria). Reviewed, dictated and finalized at location A. IMPRESSION: 1. Stable moderate nonspecific cerebral white matter disease, which likely repr esents chronic small vessel ischemic disease. 2. No aneurysm or significant intracranial arterial stenosis. 3. 0% stenosis of the proximal internal carotid arteries relative to normal dis willian artery lumen diameters (NASCET criteria).
--- NOTE | 2023-11-07 08:43 | ECG_ITS ---
Test Date: 2023-11-07 08:56:37 Measurements Intervals [place] Rate: 79 P: 85 WA: 238 QRS: 76 QRSD: 90 T: 75 QT: 353 QTc: 406 Interpretive Statements SINUS RHYTHM WITH FIRST DEGREE AV BLOCK POSSIBLE LEFT ATRIAL ENLARGEMENT [-0.1mV P-WAVE IN V1/V2] POSSIBLE LEFT VENTRICULAR HYPERTROPHY [VOLTAGE CRITERIA PLUS LAE OR QRS WIDENING] PROBABLE INFERIOR MYOCARDIAL INFARCTION , OF INDETERMINATE AGE [35 ms Q WAVE IN II/aVF] ABNORMAL ECG No previous ECG available for comparison Electronically Signed On 11-08-2023 13:26:26 CDT by Guido Gates M.D.
--- NOTE | 2023-11-07 08:44 | ED.AMS ---
HPI - Altered Mental Status General Chief Complaint: Altered Mental Status Stated Complaint: altered LOC History of Present Illness HPI narrative: 78-year-old male presenting to the emergency department for evaluation for altered mental status. Does have history HTN, PVD, dementia. Patient is currently a [facility] nursing facility. They state while he is typically confused he is able to hold a conversation but when they checked on him this morning he was unresponsive. Patient arrived by EMS. Patient does grimace in response to adverse stimuli but does sometimes respond to verbal stimuli. Patient is moving all limbs and has no flaccid paralysis on exam. Patient is a full code Related Data Home Medications Medication Instructions Recorded Confirmed cyanocobalamin (vitamin B-12) 1,000 mcg PO DAILY 04/03/21 11/07/23 1,000 mcg tablet memantine 10 mg tablet 10 mg PO DAILY 04/03/21 11/07/23 aspirin 81 mg tablet,delayed 81 mg PO DAILY 06/14/22 11/07/23 release (Adult Aspirin Regimen) cetirizine 10 mg tablet 10 mg PO DAILY PRN Congestion 06/14/22 11/07/23 docusate sodium 100 mg capsule 100 mg PO BID 07/22/22 11/07/23 (Colace) thiamine HCl (vitamin B1) 250 mg 250 mg PO DAILY 03/28/23 11/07/23 tablet betaxolol 0.5 % eye drops 1 drp EACH EYE BID 11/07/23 11/07/23 bisacodyl 10 mg rectal suppository 10 mg RECTAL DAILY PRN Constipation 11/07/23 11/07/23 magnesium citrate (Citroma oral 300 ml PO DAILY PRN Constipation 11/07/23 11/07/23 solution) magnesium hydroxide 400 mg/5 mL 30 ml PO DAILY PRN Constipation 11/07/23 11/07/23 oral suspension (Milk of Magnesia) sodium phosphates 19 gram-7 118 ml RECTAL ONCE PRN Constipation 11/07/23 11/07/23 gram/118 mL enema (Fleet Enema) tamsulosin 0.4 mg capsule 0.4 mg PO DAILY 11/07/23 11/07/23 Allergies Allergy/AdvReac Type Severity Reaction Status Date / Time No Known Allergies Allergy Unknown Verified 11/07/23 09:28 Review of Systems Review of Systems: ROS unobtainable: Yes unobtainable due to mental status PMFSH Past Medical History Medical History Acute non-ST elevation myocardial infarction (NSTEMI) (03/2023) Chronic kidney disease, stage 3 (moderate) Colon cancer screening Elevated prostate specific antigen [PSA] Erectile dysfunction Essential (primary) hypertension Primary open-angle glaucoma, bilateral, stage unspecified PVD (peripheral vascular disease) Unspecified iridocyclitis Family History Family History Father Carcinoma of colon Patient's father is Family history of malignant neoplasm Mother Patient's mother is Family history unknown Social History Social History Smoking packs per day: 0.5 Smoking cigarettes per day: 10.0 Years smoked: 60 Smoking pack-years: 30.00 Smoking status: Former smoker Alcohol intake: former Alcohol use details: social Substance use: never Substance use type: does not use Lack of Transportation: YES Lack of Food: Never True Current Housing: I Have Housing Concerned About Future Housing: No Difficulty Paying Gas/Electric Bills: No Difficulty Paying for Meds: No Currently Unemployed: No Education: High School Diploma/GED Difficulty w/ Childcare or Family Care: No Living arrangements: with family Spiritual care concerns: No Exam Narrative: APPEARANCE: Ill-appearing HEAD: normocephalic, atraumatic. EYES: PERRLA/EOMI, conjunctivae clear. NOSE: Normal no drainage EARS:TMS clear with good light reflex. THROAT: Pharynx clear, no exudate. NECK: Supple. No adenopathy, no masses. RESPIRATORY: Airway patent, respirations nonlabored. Clear to auscultation bilaterally, no rales, rhonchi, wheezing. CARDIOVASCULAR: Regular rate and rhythm without murmurs rubs or gallops.
[2023-11-07 09:16] LABS: Alveolar/Arterial O2 Gradient 50.7 mmHg; Fractional Inspired Oxygen 36 %; HCO3 ABG 27.2 mEq/l (22.0-26.0); Oxygen Saturation ABG 98.8 % (95.0-100.0); PCO2 ABG 49.1 mmHg (35.0-45.0); PO2 FiO2 Ratio Arterial Blood 4.14 %; Total Hemoglobin 15.1 g/dL (12.0-18.0); pH ABG 7.362 (7.350-7.450)
[2023-11-07 09:17] LABS: Device NASAL CANNULA; Site Drawn LEFT BRACHIAL
[2023-11-07 09:20] LABS: Basophils Percent Auto 0.3 % (0.2-1.2); Eosinophils Percent Auto 0.1 % (0-4.4); Hematocrit 46.3 % (42.0-52.0); Hemoglobin 15.6 g/dL (14.0-18.0); Immature Granulocyte Absolute 0.06 K/mm3 (0.00-0.031); Immature Granulocyte Percent A 0.4 % (0-0.5); Lymphocytes Percent Auto 4.9 % (18.3-44.2); Mean Corpuscular HGB Conc 33.7 g/dl (32-36); Mean Corpuscular Hemoglobin 30.2 pg (26-34); Mean Corpuscular Volume 89.7 fl (80-100); Mean Platelet Volume 9.6 fl (7.4-10.4); Monocytes Absolute Auto 0.7 K/mm3 (0.1-0.6); Monocytes Percent Auto 4.7 % (2.6-8.5); Neutrophils Absolute Auto 12.8 K/mm3 (1.3-6.7); Neutrophils Percent Auto 89.6 % (45.5-73.1); Platelet Count Result 379 k/mm3 (150-375); Red Blood Count 5.16 M/mm3 (4.6-6.20); Red Cell Distribution Width 13.5 % (11.5-14.5); White Blood Count 14.3 K/mm3 (4.5-10.0)
[2023-11-07 09:30] LABS: Ammonia < 9 umol/L (9-30); Lactic Acid Reflex 2.4 mmol/L (0.7-2.0)
[2023-11-07 09:31] LABS: INR 1.1; Prothrombin Time 14.3 Seconds (11.1-14.7)
[2023-11-07 09:32] LABS: Partial Thromboplastin Time 26.7 Seconds (22.3-36.8)
[2023-11-07 10:01] LABS: Estimated CRCL calculation 29 ml/min; Estimated Glomerular Filt Rate 39
[2023-11-07 10:03] LABS: Add Urine Microscopic? YES; Appearance Urine Clear (Clear); Bacteria Urine 4+ /hpf; Bilirubin Urine Negative (Negative); Blood Urine Negative (Negative); Color Urine Yellow (Yellow); Glucose Urine UA Negative (Negative); Ketones Urine Negative (Negative); Leukocyte Esterase Ur 1+ LEU/UL (Negative); Nitrate Urine Negative (Negative); Non Pathogenic Casts 0-2; Protein Urine Negative (Negative); RBC Urine 0-2 /hpf (0-2); Squamous Epithelial Cell Urine Occasional /hpf (Few); WBC Urine 21-50 /hpf (0-3)
[2023-11-07 10:13] LABS: Alanine Aminotransferase 28 U/L (6-50); Alkaline Phosphatase 101 U/L (38-126); Anion Gap 10 mmol/L (4-12); Aspartate Amino Transferase 34 U/L (17-59); Bilirubin,Total 0.6 mg/dL (0.2-1.3); Blood Urea Nitrogen 29 mg/dL (9-20); Calcium 9.5 mg/dL (8.4-10.2); Carbon Dioxide 32 mmol/L (22-30); Chloride 98 mmol/L (98-107); Estimated CRCL calculation 30 ml/min; Estimated Glomerular Filt Rate 42; Glucose 135 mg/dL (65-110); Potassium 4.4 mmol/L (3.4-5.0); Sodium 140 mmol/L (137-145)
[2023-11-07] MEDS: SODIUM CHLORIDE 0.9% IV 1,000 ML 999 ML IV CONT (10:22)
[2023-11-07 10:35] LABS: Influenza A QL RT-PCR Negative (Negative); Influenza B QL RT-PCR Negative (Negative); RSV RNA, RT-PCR Negative (Negative); SARS-CoV-2 RNA PCR Positive (Negative)
[2023-11-07] MEDS: AZITHROMYCIN 500 MG/NS 250 ML 500 MG/250 ML BAG 250 MG IVPB (10:45)
[2023-11-07 10:50] LABS: Procalcitonin 0.1 ng/mL
[2023-11-07 12:19] LABS: Reflex Lactic Acid Yes or No Add Lactic
--- NOTE | 2023-11-07 12:29 | PM.IMHP ---
H&P: HPI History of Present Illness Date/Time: 11/07/23 12:29 Chief Complaint: Altered Mental Status Narrative: 78 y/o M presents here with altered mental status with PMH of HTN, PVD, CKD, and dementia. The patient presents here from [facility] via EMS for further evaluation of altered mental status. Patient has history of dementia, however is conversant at baseline. Today [facility] to [facility]. Upon arrival to the ED he had eye opening to verbal stimuli, able to follow some commands (squeezed hands when asked), and nonverbal. Patient recently had COVID, initially tested positive on October 25, 2023. Per sister at the bedside, patient is normally minimally verbal. At baseline he will say yes, no, hi, and one word answers. He is ambulatory with assistance or with an assistive device. She last saw him at his baseline at the end of September due to isolation for COVID (isolation ended on 11/03). Initial VS at presentation: 97.7? F, HR 83, RR 14, 118/56, and 87% on RA. Now on 4L NC at 97%. ED workup showed: WBC 14.3, hemoglobin 6.6, normal coags, creatinine 1.9 and GFR 42 (previously 1.0 and >60 on 04/04/23), lactic 2.4, procalcitonin 0.1, TSH 4.4, UA suggestive of possible UTI, and testing positive for COVID (initially tested positive on 10/25/23). CXR showed patchy bilateral airspace disease compatible with pneumonia. CTA of the head/neck showed no acute findings, stable moderate nonspecific cerebral white matter disease. Review of Systems Review of Systems: ROS unobtainable: Yes unobtainable due to mental status [facility] Past Medical History Medical History Acute non-ST elevation myocardial infarction (NSTEMI) (03/2023) Chronic kidney disease, stage 3 (moderate) Colon cancer screening Elevated prostate specific antigen [PSA] Erectile dysfunction Essential (primary) hypertension Primary open-angle glaucoma, bilateral, stage unspecified PVD (peripheral vascular disease) Unspecified iridocyclitis Family History Family History Father Carcinoma of colon Patient's father is Family history of malignant neoplasm Mother Patient's mother is Family history unknown Social History Social History Smoking packs per day: 0.5 Smoking cigarettes per day: 10.0 Years smoked: 60 Smoking pack-years: 30.00 Smoking status: Former smoker Alcohol intake: former Alcohol use details: social Substance use: never Substance use type: does not use Lack of Transportation: YES Lack of Food: Never True Current Housing: I Have Housing Concerned About Future Housing: No Difficulty Paying Gas/Electric Bills: No Difficulty Paying for Meds: No Currently Unemployed: No Education: High School Diploma/GED Difficulty w/ Childcare or Family Care: No Living arrangements: with family Spiritual care concerns: No Meds Home Medications and Allergies Home Medications Medication Instructions Recorded Confirmed Type cyanocobalamin (vitamin B-12) 1,000 mcg PO DAILY 04/03/21 11/07/23 History 1,000 mcg tablet memantine 10 mg tablet 10 mg PO DAILY 04/03/21 11/07/23 History aspirin 81 mg tablet,delayed 81 mg PO DAILY 06/14/22 11/07/23 History release (Adult Aspirin Regimen) cetirizine 10 mg tablet 10 mg PO DAILY PRN Congestion 06/14/22 11/07/23 History ipratropium bromide 21 mcg (0.03 See Rx Instructions .Route 06/14/22 11/07/23 Rx %) nasal spray .COMPLEX #90 mL docusate sodium 100 mg capsule 100 mg PO BID 07/22/22 11/07/23 History (Colace) atorvastatin 20 mg tablet 20 mg PO DAILY #90 tabs 01/22/23 11/07/23 Rx thiamine HCl (vitamin B1) 250 mg 250 mg PO DAILY 03/28/23 11/07/23 History tablet betaxolol 0.5 % eye drops 1 drp EACH EYE BID 11/07/23 11/07/23 History bisacodyl 1
--- NOTE | 2023-11-07 13:18 | ADMGEN ---
This patient, Ulysses Lane, was admitted to [facility] Room 332-02. Patient/family oriented to hospital policies and general routines including ID bracelet, bed and alarms, visiting hours, pain management, procedures, bathroom and other care routines, personal items, smoking policy, room service/diet, and visiting hours. Information on how to activate the Rapid Response Team has been discussed. Patient/Family are encouraged to report perceived risks to care and to ask questions if they do not understand what they are told or what they should do.
[2023-11-07 13:47] LABS: Lactic Acid 1.5 mmol/L (0.7-2.0)
[2023-11-07 15:27] LABS: Alveolar/Arterial O2 Gradient 102.9 mmHg; Device NASAL CANNULA; Fractional Inspired Oxygen 32 %; HCO3 ABG 27.7 mEq/l (22.0-26.0); Oxygen Content ABG 18.7 %vol (16.0-22.0); Oxyhemoglobin 90.5 % THb (90.0-100.0); PCO2 ABG 52.4 mmHg (35.0-45.0); Site Drawn LEFT BRACHIAL; Total Hemoglobin 14.7 g/dL (12.0-18.0); pH ABG 7.341 (7.350-7.450)
[2023-11-07] MEDS: LACTATED RINGERS 1,000 ML 250 ML IV CONT (15:40)
[2023-11-07] MEDS: NALOXONE HCL 0.4 MG/ML VIAL 0.1 MG IV PUSH (15:41)
--- NOTE | 2023-11-07 18:41 | PC.NURSE ---
On 11/07/23, the UPS DRIVER, Taylor Ware, provided care and completed [employer] documentation on this patient. I have reviewed the UPS DRIVER's documentation and agree with the findings.
[2023-11-07] MEDS: SODIUM CHLORIDE 0.9% IV 1,000 ML 125 ML IV CONT (20:19)
[2023-11-08] MEDS: SODIUM CHLORIDE 0.9% IV 1,000 ML 125 ML IV CONT ×2 (03:19→12:43)
[2023-11-08] MEDS: IPRATROPIUM NASAL SPRAY 0.03% 15 ML BOTTLE 2 SPRAY NASAL ×2 (05:14→20:34)
[2023-11-08 06:00] VITALS: BP 133/66; PULSE 83; RESP 18; TEMP 36.5; O2SAT 99
[2023-11-08 06:17] LABS: Alanine Aminotransferase 26 U/L (6-50); Alkaline Phosphatase 79 U/L (38-126); Anion Gap 8 mmol/L (4-12); Aspartate Amino Transferase 48 U/L (17-59); Bilirubin,Total 0.9 mg/dL (0.2-1.3); Blood Urea Nitrogen 26 mg/dL (9-20); Calcium 8.7 mg/dL (8.4-10.2); Carbon Dioxide 29 mmol/L (22-30); Chloride 103 mmol/L (98-107); Estimated CRCL calculation 40 ml/min; Estimated Glomerular Filt Rate 60; Glucose 110 mg/dL (65-110); Potassium 4.4 mmol/L (3.4-5.0); Sodium 140 mmol/L (137-145)
[2023-11-08 06:45] LABS: MRSA (PCR) NOT DETECTED (NOT DETECTE)
[2023-11-08 06:56] LABS: Basophils Absolute Auto 0.1 K/mm3 (0.0-0.1); Basophils Percent Auto 0.4 % (0.2-1.2); Eosinophils Percent Auto 0.2 % (0-4.4); Hemoglobin 13.6 g/dL (14.0-18.0); Immature Granulocyte Absolute 0.08 K/mm3 (0.00-0.031); Immature Granulocyte Percent A 0.5 % (0-0.5); Lymphocytes Absolute Auto 0.63 K/mm3 (0.9-3.2); Lymphocytes Percent Auto 3.6 % (18.3-44.2); Mean Corpuscular Volume 88.3 fl (80-100); Mean Platelet Volume 10.1 fl (7.4-10.4); Monocytes Absolute Auto 0.5 K/mm3 (0.1-0.6); Monocytes Percent Auto 3.1 % (2.6-8.5); Neutrophils Absolute Auto 16.3 K/mm3 (1.3-6.7); Neutrophils Percent Auto 92.2 % (45.5-73.1); Platelet Count Result 299 k/mm3 (150-375); Red Blood Count 4.53 M/mm3 (4.6-6.20); Red Cell Distribution Width 13.8 % (11.5-14.5); White Blood Count 17.6 K/mm3 (4.5-10.0)
[2023-11-08 08:00] VITALS: O2SAT 99
[2023-11-08 12:18] LABS: Basophils Absolute Auto 0.1 K/mm3 (0.0-0.1); Basophils Percent Auto 0.4 % (0.2-1.2); Eosinophils Percent Auto 0.3 % (0-4.4); Hemoglobin 13.3 g/dL (14.0-18.0); Immature Granulocyte Absolute 0.06 K/mm3 (0.00-0.031); Immature Granulocyte Percent A 0.4 % (0-0.5); Lymphocytes Absolute Auto 0.89 K/mm3 (0.9-3.2); Lymphocytes Percent Auto 5.6 % (18.3-44.2); Mean Corpuscular HGB Conc 32.4 g/dl (32-36); Mean Corpuscular Hemoglobin 29.6 pg (26-34); Mean Corpuscular Volume 91.1 fl (80-100); Mean Platelet Volume 9.5 fl (7.4-10.4); Monocytes Absolute Auto 0.5 K/mm3 (0.1-0.6); Monocytes Percent Auto 3.4 % (2.6-8.5); Neutrophils Absolute Auto 14.2 K/mm3 (1.3-6.7); Neutrophils Percent Auto 89.9 % (45.5-73.1); Platelet Count Result 268 k/mm3 (150-375); Red Cell Distribution Width 13.9 % (11.5-14.5); White Blood Count 15.8 K/mm3 (4.5-10.0)
[2023-11-08] MEDS: AZITHROMYCIN 500 MG/NS 250 ML 500 MG/250 ML BAG 250 MG IVPB (12:42)
--- NOTE | 2023-11-08 13:43 | PM.IMPN ---
Progress Note: A&P Assessment and Plan (1) AMS (altered mental status): Qualifiers: Altered mental status type: unspecified Qualified Code(s): R41.82 - Altered mental status, unspecified Code(s): R41.82 - Altered mental status, unspecified Status: Acute Assessment and Plan: 11/08/23: CTA the head neck showed age-related changes, 0% stenosis to bilateral internal carotid arteries Continue neuro checks Suspect metabolic encephalopathy secondary to UTI/pneumonia (2) Pneumonia: Qualifiers: Laterality: bilateral Lung location: unspecified part of lung Pneumonia type: due to unspecified organism Qualified Code(s): J18.9 - Pneumonia, unspecified organism Code(s): J18.9 - Pneumonia, unspecified organism Status: Acute Assessment and Plan: 11/08/23: Chest x-ray showing pneumonia Patient started on Rocephin and azithromycin MRSA negative Viral PCR COVID positive however it was also positive on 10/24 Sputum culture pending Continue neb treatments Currently on 3 L nasal cannula, continue to wean O2 for oxygen saturation greater than 92% White blood cell count down to 15.8 today Patient not awake enough to clear secretions, NT placed for suctioning as needed May require transfer to IMU for closer monitoring Will give 20 mg of IV Lasix now (3) Acute UTI: Code(s): N39.0 - Urinary tract infection, site not specified Status: Acute Assessment and Plan: 11/08/23: UA showing 1+ leukocyte, 21-50 WBC, 4+ bacteria Urine culture obtained and are pending Continue Rocephin (4) GEMA (acute kidney injury): Code(s): N17.9 - Acute kidney failure, unspecified Status: Acute Assessment and Plan: 11/08/23: Creatinine down to 1.4 Baseline creatinine 1.0 Continue to trend Woodson placed for accurate I&O Time Spent With Patient Time with patient: 25 - 35 minutes Subjective Date/time seen: 11/08/23 13:43 Interval history: Interval history: This is a 78-year-old male who presented to the hospital on 11/07/2023 with altered mental status. Workup in the hospital includes chest x-ray which shows patchy bilateral airspace disease compatible with pneumonia. Head and neck CTA showed stable moderate nonspecific cerebral white matter disease likely representing chronic small-vessel ischemic disease, 0% stenosis in bilateral internal carotid arteries. Initial labs showed a white blood cell count of 14.3, creatinine 2.0, EGFR 39, lactic acid 2.4> 1.5, ammonia less than 9, procalcitonin 0.1. UA was obtained showed 1+ leukocyte, 21-50 urine WBC, 4+ bacteria. MRSA was negative. Respiratory panel was negative for influenza a and B, RSV, however COVID was positive. Blood urine and sputum cultures are all pending. Patient was started on cefepime and azithromycin. Patient alert to voice, does not follow commands. Patient having trouble clearing his secretions from his airway and will likely need NT suctioning. He is currently on 3 L nasal cannula, T-max 101.4?. Review of Systems Review of Systems: ROS unobtainable: Yes unobtainable due to mental status Exam Narrative: General: In no acute distress, well-nourished Head: atraumatic, no encephalopathy Eyes: sclera clear ENT: moist mucous membranes, nasal passages clear Neck: supple, no JVD, no adenopathy, trachea midline Cardiac: Normal S1 and S2. No murmur, gallops or friction rubs, peripheral pulses intact. Respiratory: Lungs course, no adventitious lung sounds copious of thick mead/yellow sputum, currently 3 L nasal cannula Gastrointestinal: soft, non-distended, non-tender, normoactive bowel sounds. : voiding Extremities: moves all extremities well, no edema, good ROM, strength 5/5 Skin: clean, dry, intact. No wounds or lesions. Neuro: Alert to voice, not follow commands or regard Objective Data Vital Signs Vital Signs: Vital Signs - 24 hr 11/07/23 15:20 11/07/23 2
[2023-11-08 14:00] VITALS: BP 145/76; PULSE 80; RESP 16; TEMP 36.7; O2SAT 90
[2023-11-08] MEDS: FUROSEMIDE INJ 40 MG/4 ML VIAL 20 MG IV PUSH (17:34)
[2023-11-08] MEDS: DEXTROSE 5%/0.9% SOD CHL 1,000 ML 100 ML IV CONT (17:34)
[2023-11-08 18:59] LABS: Glucose Point of Care 138 mg/dl (65-105)
[2023-11-08 20:00] VITALS: PULSE 91; RESP 13; O2SAT 99
[2023-11-08] MEDS: DOCUSATE SODIUM 100 MG CAPSULE PO (20:33)
[2023-11-08] MEDS: guaiFENesin 12 HR 600 MG TABCR PO (20:33)
[2023-11-08 21:23] VITALS: BP 151/61; PULSE 91; RESP 13; TEMP 37.2; O2SAT 99
[2023-11-08 23:50] LABS: Glucose Point of Care 120 mg/dl (65-105)
[2023-11-09] VITALS (7 sets, daily range): BP systolic 150–154; BP diastolic 76–85; PULSE 79–85; RESP 16–20; TEMP 36.8–37.1; O2SAT 95–97
[2023-11-09] MEDS: DEXTROSE 5%/0.9% SOD CHL 1,000 ML 100 ML IV CONT ×2 (03:53→16:41)
[2023-11-09 05:28] LABS: Glucose Point of Care 115 mg/dl (65-105)
[2023-11-09] MEDS: IPRATROPIUM NASAL SPRAY 0.03% 15 ML BOTTLE 2 SPRAY NASAL (06:13)
[2023-11-09 09:03] LABS: Basophils Percent Auto 0.2 % (0.2-1.2); Eosinophils Absolute Auto 0.1 K/mm3 (0-0.3); Eosinophils Percent Auto 0.8 % (0-4.4); Hemoglobin 12.5 g/dL (14.0-18.0); Immature Granulocyte Absolute 0.08 K/mm3 (0.00-0.031); Immature Granulocyte Percent A 0.7 % (0-0.5); Lymphocytes Absolute Auto 0.68 K/mm3 (0.9-3.2); Lymphocytes Percent Auto 5.5 % (18.3-44.2); Mean Corpuscular HGB Conc 32.9 g/dl (32-36); Mean Corpuscular Hemoglobin 29.2 pg (26-34); Mean Corpuscular Volume 88.8 fl (80-100); Mean Platelet Volume 9.8 fl (7.4-10.4); Monocytes Absolute Auto 0.7 K/mm3 (0.1-0.6); Monocytes Percent Auto 5.9 % (2.6-8.5); Neutrophils Absolute Auto 10.7 K/mm3 (1.3-6.7); Neutrophils Percent Auto 86.9 % (45.5-73.1); Platelet Count Result 235 k/mm3 (150-375); Red Blood Count 4.28 M/mm3 (4.6-6.20); Red Cell Distribution Width 13.8 % (11.5-14.5); White Blood Count 12.3 K/mm3 (4.5-10.0)
[2023-11-09 09:18] LABS: Alanine Aminotransferase 27 U/L (6-50); Alkaline Phosphatase 88 U/L (38-126); Anion Gap 6 mmol/L (4-12); Aspartate Amino Transferase 42 U/L (17-59); Bilirubin,Total 0.7 mg/dL (0.2-1.3); Blood Urea Nitrogen 19 mg/dL (9-20); Calcium 8.8 mg/dL (8.4-10.2); Carbon Dioxide 28 mmol/L (22-30); Chloride 104 mmol/L (98-107); Estimated CRCL calculation 51 ml/min; Estimated Glomerular Filt Rate > 60; Glucose 121 mg/dL (65-110); Potassium 3.7 mmol/L (3.4-5.0); Sodium 138 mmol/L (137-145)
[2023-11-09 12:00] LABS: Glucose Point of Care 124 mg/dl (65-105)
--- NOTE | 2023-11-09 12:18 | P.PNIM_ITS ---
Progress Note: A&P Assessment and Plan (1) AMS (altered mental status): Qualifiers: Altered mental status type: unspecified Qualified Code(s): R41.82 - Altered mental status, unspecified Code(s): R41.82 - Altered mental status, unspecified Status: Acute Assessment and Plan: 11/08/23: * CTA the head neck showed age-related changes, 0% stenosis to bilateral internal carotid arteries * Continue neuro checks * Suspect metabolic encephalopathy secondary to UTI/pneumonia 11/09/23: * Continue neuro checks * Continue and NPO status (2) Pneumonia: Qualifiers: Laterality: bilateral Lung location: unspecified part of lung Pneumonia type: due to unspecified organism Qualified Code(s): J18.9 - Pneumonia, unspecified organism Code(s): J18.9 - Pneumonia, unspecified organism Status: Acute Assessment and Plan: 11/08/23: * Chest x-ray showing pneumonia * Patient started on Rocephin and azithromycin * MRSA negative * Viral PCR COVID positive however it was also positive on 10/24 * Sputum culture pending * Continue neb treatments * Currently on 3 L nasal cannula, continue to wean O2 for oxygen saturation greater than 92% * White blood cell count down to 15.8 today * Patient not awake enough to clear secretions, NT placed for suctioning as needed * May require transfer to IMU for closer monitoring * Will give 20 mg of IV Lasix now 11/09/23: * White blood cell count down to 12.3 * Sputum culture negative * Blood culture showing no growth on preliminary read * Continue Rocephin and azithromycin IV (3) Acute UTI: Code(s): N39.0 - Urinary tract infection, site not specified Status: Acute Assessment and Plan: 11/08/23: * UA showing 1+ leukocyte, 21-50 WBC, 4+ bacteria * Urine culture obtained and are pending * Continue Rocephin 11/09/23: * Urine culture showing E coli on final read which is rodriguez sensitive * Altered mental status, we will continue with IV Rocephin for now (4) GEMA (acute kidney injury): Code(s): N17.9 - Acute kidney failure, unspecified Status: Acute Assessment and Plan: 11/08/23: * Creatinine down to 1.4 * Baseline creatinine 1.0 * Continue to trend * Woodson placed for accurate I&O 11/09/23: * Creatinine to 1.1 * Continue to trend Time Spent With Patient Time with patient: 25 - 35 minutes Subjective Date/time seen: 11/09/23 12:18 Interval history: Interval history: This is a 78-year-old male who presented to the hospital on 11/07/2023 with altered mental status. Workup in the hospital includes chest x-ray which shows patchy bilateral airspace disease compatible with pneumonia. Head and neck CTA showed stable moderate nonspecific cerebral white matter disease likely representing chronic small-vessel ischemic disease, 0% stenosis in bilateral internal carotid arteries. Initial labs showed a white blood cell count of 14.3, creatinine 2.0, EGFR 39, lactic acid 2.4> 1.5, ammonia less than 9, procalcitonin 0.1. UA was obtained showed 1+ leukocyte, 21-50 urine WBC, 4+ bacteria. MRSA was negative. Respiratory panel was negative for influenza a and B, RSV, however COVID was positive. Blood urine and sputum cultures are all pending. Patient was started on cefepime and azithromycin. 11/09/23: Minimal interaction with patient. He is alert to voice unable to assess orientation due to lethargy. He will answer some yes no questions. Labs reviewed white blood count has come down to 12.3. Cultures reviewed.
--- NOTE | 2023-11-09 12:18 | PM.IMPN ---
Progress Note: A&P Assessment and Plan (1) AMS (altered mental status): Qualifiers: Altered mental status type: unspecified Qualified Code(s): R41.82 - Altered mental status, unspecified Code(s): R41.82 - Altered mental status, unspecified Status: Acute Assessment and Plan: 11/08/23: CTA the head neck showed age-related changes, 0% stenosis to bilateral internal carotid arteries Continue neuro checks Suspect metabolic encephalopathy secondary to UTI/pneumonia 11/09/23: Continue neuro checks Continue and NPO status (2) Pneumonia: Qualifiers: Laterality: bilateral Lung location: unspecified part of lung Pneumonia type: due to unspecified organism Qualified Code(s): J18.9 - Pneumonia, unspecified organism Code(s): J18.9 - Pneumonia, unspecified organism Status: Acute Assessment and Plan: 11/08/23: Chest x-ray showing pneumonia Patient started on Rocephin and azithromycin MRSA negative Viral PCR COVID positive however it was also positive on 10/24 Sputum culture pending Continue neb treatments Currently on 3 L nasal cannula, continue to wean O2 for oxygen saturation greater than 92% White blood cell count down to 15.8 today Patient not awake enough to clear secretions, NT placed for suctioning as needed May require transfer to IMU for closer monitoring Will give 20 mg of IV Lasix now 11/09/23: White blood cell count down to 12.3 Sputum culture negative Blood culture showing no growth on preliminary read Continue Rocephin and azithromycin IV (3) Acute UTI: Code(s): N39.0 - Urinary tract infection, site not specified Status: Acute Assessment and Plan: 11/08/23: UA showing 1+ leukocyte, 21-50 WBC, 4+ bacteria Urine culture obtained and are pending Continue Rocephin 11/09/23: Urine culture showing E coli on final read which is rodriguez sensitive Altered mental status, we will continue with IV Rocephin for now (4) GEMA (acute kidney injury): Code(s): N17.9 - Acute kidney failure, unspecified Status: Acute Assessment and Plan: 11/08/23: Creatinine down to 1.4 Baseline creatinine 1.0 Continue to trend Woodson placed for accurate I&O 11/09/23: Creatinine to 1.1 Continue to trend Time Spent With Patient Time with patient: 25 - 35 minutes Subjective Date/time seen: 11/09/23 12:18 Interval history: Interval history: This is a 78-year-old male who presented to the hospital on 11/07/2023 with altered mental status. Workup in the hospital includes chest x-ray which shows patchy bilateral airspace disease compatible with pneumonia. Head and neck CTA showed stable moderate nonspecific cerebral white matter disease likely representing chronic small-vessel ischemic disease, 0% stenosis in bilateral internal carotid arteries. Initial labs showed a white blood cell count of 14.3, creatinine 2.0, EGFR 39, lactic acid 2.4> 1.5, ammonia less than 9, procalcitonin 0.1. UA was obtained showed 1+ leukocyte, 21-50 urine WBC, 4+ bacteria. MRSA was negative. Respiratory panel was negative for influenza a and B, RSV, however COVID was positive. Blood urine and sputum cultures are all pending. Patient was started on cefepime and azithromycin. 11/09/23: Minimal interaction with patient. He is alert to voice unable to assess orientation due to lethargy. He will answer some yes no questions. Labs reviewed white blood count has come down to 12.3. Cultures reviewed. Review of Systems Review of Systems: ROS unobtainable: Yes unobtainable due to mental status Exam Narrative: General: In no acute distress, malnourished Cardiac: Normal S1 and S2. No murmur, gallops or friction rubs, peripheral pulses intact. Respiratory: Lungs crackles noted, no adventitious lung sounds copious of thick mead/yellow sputum, currently 3 L nasal cannula Gastrointestinal: soft, non-distended, flat, non-tender, hypo active bowel
[2023-11-09] MEDS: AZITHROMYCIN 500 MG/NS 250 ML 500 MG/250 ML BAG 250 MG IVPB (12:26)
--- NOTE | 2023-11-09 14:04 | PC.NURSE ---
Assuming care for pt
--- NOTE | 2023-11-09 14:05 | PC.NURSE ---
Assuming care for pt
--- NOTE | 2023-11-09 16:23 | PC.NURSE ---
Care assumed from TAPAN Ragland.
[2023-11-09 18:43] LABS: Glucose Point of Care 124 mg/dl (65-105)
[2023-11-09 23:56] LABS: Glucose Point of Care 140 mg/dl (65-105)
[2023-11-10] MEDS: DEXTROSE 5%/0.9% SOD CHL 1,000 ML 100 ML IV CONT ×2 (02:38→14:12)
[2023-11-10 06:00] VITALS: BP 150/82; PULSE 65; RESP 22; TEMP 36.7; O2SAT 100
[2023-11-10 06:13] LABS: Basophils Percent Auto 0.2 % (0.2-1.2); Eosinophils Absolute Auto 0.1 K/mm3 (0-0.3); Eosinophils Percent Auto 0.6 % (0-4.4); Hematocrit 37.1 % (42.0-52.0); Hemoglobin 12.3 g/dL (14.0-18.0); Immature Granulocyte Absolute 0.04 K/mm3 (0.00-0.031); Immature Granulocyte Percent A 0.4 % (0-0.5); Lymphocytes Absolute Auto 0.86 K/mm3 (0.9-3.2); Lymphocytes Percent Auto 9.1 % (18.3-44.2); Mean Corpuscular HGB Conc 33.2 g/dl (32-36); Mean Corpuscular Hemoglobin 29.3 pg (26-34); Mean Corpuscular Volume 88.3 fl (80-100); Mean Platelet Volume 9.9 fl (7.4-10.4); Monocytes Absolute Auto 0.7 K/mm3 (0.1-0.6); Monocytes Percent Auto 7.8 % (2.6-8.5); Neutrophils Absolute Auto 7.8 K/mm3 (1.3-6.7); Neutrophils Percent Auto 81.9 % (45.5-73.1); Platelet Count Result 231 k/mm3 (150-375); Red Cell Distribution Width 13.7 % (11.5-14.5); White Blood Count 9.5 K/mm3 (4.5-10.0)
[2023-11-10 06:15] LABS: Glucose Point of Care 118 mg/dl (65-105)
[2023-11-10 06:32] LABS: Alanine Aminotransferase 27 U/L (6-50); Albumin Level 2.9 g/dL (3.5-5.1); Alkaline Phosphatase 84 U/L (38-126); Anion Gap 6 mmol/L (4-12); Aspartate Amino Transferase 60 U/L (17-59); Bilirubin,Total 0.8 mg/dL (0.2-1.3); Blood Urea Nitrogen 17 mg/dL (9-20); Calcium 8.8 mg/dL (8.4-10.2); Carbon Dioxide 29 mmol/L (22-30); Chloride 104 mmol/L (98-107); Estimated CRCL calculation 51 ml/min; Estimated Glomerular Filt Rate > 60; Glucose 119 mg/dL (65-110); Potassium 3.7 mmol/L (3.4-5.0); Sodium 139 mmol/L (137-145)
[2023-11-10 08:00] VITALS: O2SAT 100
[2023-11-10 08:10] VITALS: O2SAT 98
--- NOTE | 2023-11-10 09:54 | P.PNIM_ITS ---
Progress Note: A&P Assessment and Plan (1) AMS (altered mental status): Qualifiers: Altered mental status type: unspecified Qualified Code(s): R41.82 - Altered mental status, unspecified Code(s): R41.82 - Altered mental status, unspecified Status: Acute Assessment and Plan: 11/08/23: * CTA the head neck showed age-related changes, 0% stenosis to bilateral internal carotid arteries * Continue neuro checks * Suspect metabolic encephalopathy secondary to UTI/pneumonia 11/09/23: * Continue neuro checks * Continue and NPO status (2) Pneumonia: Qualifiers: Laterality: bilateral Lung location: unspecified part of lung Pneumonia type: due to unspecified organism Qualified Code(s): J18.9 - Pneumonia, unspecified organism Code(s): J18.9 - Pneumonia, unspecified organism Status: Acute Assessment and Plan: 11/08/23: * Chest x-ray showing pneumonia * Patient started on Rocephin and azithromycin * MRSA negative * Viral PCR COVID positive however it was also positive on 10/24 * Sputum culture pending * Continue neb treatments * Currently on 3 L nasal cannula, continue to wean O2 for oxygen saturation greater than 92% * White blood cell count down to 15.8 today * Patient not awake enough to clear secretions, NT placed for suctioning as needed * May require transfer to IMU for closer monitoring * Will give 20 mg of IV Lasix now 11/09/23: * White blood cell count down to 12.3 * Sputum culture negative * Blood culture showing no growth on preliminary read * Continue Rocephin and azithromycin IV 11/09- wbc-9.5 continue to monitor (3) Acute UTI: Code(s): N39.0 - Urinary tract infection, site not specified Status: Acute Assessment and Plan: 11/08/23: * UA showing 1+ leukocyte, 21-50 WBC, 4+ bacteria * Urine culture obtained and are pending * Continue Rocephin 11/09/23: * Urine culture showing E coli on final read which is rodriguez sensitive * Altered mental status, we will continue with IV Rocephin for now (4) GEMA (acute kidney injury): Code(s): N17.9 - Acute kidney failure, unspecified Status: Acute Assessment and Plan: 11/08/23: * Creatinine down to 1.4 * Baseline creatinine 1.0 * Continue to trend * Woodson placed for accurate I&O 11/09/23: * Creatinine to 1.1 * Continue to trend 11/09- stable- monitor Time Spent With Patient Time with patient: Greater than 35 minutes Subjective Date/time seen: 11/10/23 09:54 Interval history: Interval history: This is a 78-year-old male who presented to the hospital on 11/07/2023 with altered mental status. Workup in the hospital includes chest x-ray which shows patchy bilateral airspace disease compatible with pneumonia. Head and neck CTA showed stable moderate nonspecific cerebral white matter disease likely representing chronic small-vessel ischemic disease, 0% stenosis in bilateral internal carotid arteries. Initial labs showed a white blood cell count of 14.3, creatinine 2.0, EGFR 39, lactic acid 2.4> 1.5, ammonia less than 9, procalcitonin 0.1. UA was obtained showed 1+ leukocyte, 21-50 urine WBC, 4+ bacteria. MRSA was negative. Respiratory panel was negative for influenza a and B, RSV, however COVID was positive. Blood urine and sputum cultures are all pending. Patient was started on cefepime and azithromycin. 11/09/23: Minimal interaction with patient. He is alert to voice unable to assess orientation due to lethargy. He will answer some yes no questions. Labs
--- NOTE | 2023-11-10 09:54 | PM.IMPN ---
Progress Note: A&P Assessment and Plan (1) AMS (altered mental status): Qualifiers: Altered mental status type: unspecified Qualified Code(s): R41.82 - Altered mental status, unspecified Code(s): R41.82 - Altered mental status, unspecified Status: Acute Assessment and Plan: 11/08/23: CTA the head neck showed age-related changes, 0% stenosis to bilateral internal carotid arteries Continue neuro checks Suspect metabolic encephalopathy secondary to UTI/pneumonia 11/09/23: Continue neuro checks Continue and NPO status (2) Pneumonia: Qualifiers: Laterality: bilateral Lung location: unspecified part of lung Pneumonia type: due to unspecified organism Qualified Code(s): J18.9 - Pneumonia, unspecified organism Code(s): J18.9 - Pneumonia, unspecified organism Status: Acute Assessment and Plan: 11/08/23: Chest x-ray showing pneumonia Patient started on Rocephin and azithromycin MRSA negative Viral PCR COVID positive however it was also positive on 10/24 Sputum culture pending Continue neb treatments Currently on 3 L nasal cannula, continue to wean O2 for oxygen saturation greater than 92% White blood cell count down to 15.8 today Patient not awake enough to clear secretions, NT placed for suctioning as needed May require transfer to IMU for closer monitoring Will give 20 mg of IV Lasix now 11/09/23: White blood cell count down to 12.3 Sputum culture negative Blood culture showing no growth on preliminary read Continue Rocephin and azithromycin IV 11/09- wbc-9.5 continue to monitor (3) Acute UTI: Code(s): N39.0 - Urinary tract infection, site not specified Status: Acute Assessment and Plan: 11/08/23: UA showing 1+ leukocyte, 21-50 WBC, 4+ bacteria Urine culture obtained and are pending Continue Rocephin 11/09/23: Urine culture showing E coli on final read which is rodriguez sensitive Altered mental status, we will continue with IV Rocephin for now (4) GEMA (acute kidney injury): Code(s): N17.9 - Acute kidney failure, unspecified Status: Acute Assessment and Plan: 11/08/23: Creatinine down to 1.4 Baseline creatinine 1.0 Continue to trend Woodson placed for accurate I&O 11/09/23: Creatinine to 1.1 Continue to trend 11/09- stable- monitor Time Spent With Patient Time with patient: Greater than 35 minutes Subjective Date/time seen: 11/10/23 09:54 Interval history: Interval history: This is a 78-year-old male who presented to the hospital on 11/07/2023 with altered mental status. Workup in the hospital includes chest x-ray which shows patchy bilateral airspace disease compatible with pneumonia. Head and neck CTA showed stable moderate nonspecific cerebral white matter disease likely representing chronic small-vessel ischemic disease, 0% stenosis in bilateral internal carotid arteries. Initial labs showed a white blood cell count of 14.3, creatinine 2.0, EGFR 39, lactic acid 2.4> 1.5, ammonia less than 9, procalcitonin 0.1. UA was obtained showed 1+ leukocyte, 21-50 urine WBC, 4+ bacteria. MRSA was negative. Respiratory panel was negative for influenza a and B, RSV, however COVID was positive. Blood urine and sputum cultures are all pending. Patient was started on cefepime and azithromycin. 11/09/23: Minimal interaction with patient. He is alert to voice unable to assess orientation due to lethargy. He will answer some yes no questions. Labs reviewed white blood count has come down to 12.3. Cultures reviewed. 11/09- seen and examined. A/O x 1 his baseline. Call placed to family to discuss goals of care- awaiting for a call back. Review of Systems Review of Systems: ROS unobtainable: Yes unobtainable due to mental status Exam Narrative: General: In no acute distress, malnourished Cardiac: Normal S1 and S2. No murmur, gallops or friction rubs, peripheral pulses intact. Respiratory: Amanda
[2023-11-10] MEDS: AZITHROMYCIN 500 MG/NS 250 ML 500 MG/250 ML BAG 250 MG IVPB (10:52)
[2023-11-10 11:24] LABS: Glucose Point of Care 93 mg/dl (65-105)
[2023-11-10 14:00] VITALS: BP 140/80; PULSE 81; RESP 20; TEMP 36.2; O2SAT 99
[2023-11-10 18:30] VITALS: O2SAT 95
[2023-11-10 18:40] LABS: Glucose Point of Care 117 mg/dl (65-105)
[2023-11-10 21:15] VITALS: BP 142/80; PULSE 79; RESP 20; TEMP 36.3; O2SAT 95
[2023-11-10] MEDS: IPRATROPIUM NASAL SPRAY 0.03% 15 ML BOTTLE 2 SPRAY NASAL (22:01)
[2023-11-11] MEDS: DEXTROSE 5%/0.9% SOD CHL 1,000 ML 100 ML IV CONT ×2 (00:18→18:01)
[2023-11-11 05:15] VITALS: BP 150/88; PULSE 69; RESP 14; TEMP 36.2; O2SAT 92
[2023-11-11] MEDS: IPRATROPIUM NASAL SPRAY 0.03% 15 ML BOTTLE 2 SPRAY NASAL ×2 (05:54→22:00)
[2023-11-11 06:10] LABS: Glucose Point of Care 108 mg/dl (65-105)
[2023-11-11 06:37] LABS: Basophils Percent Auto 0.4 % (0.2-1.2); Eosinophils Absolute Auto 0.1 K/mm3 (0-0.3); Eosinophils Percent Auto 0.8 % (0-4.4); Hemoglobin 12.8 g/dL (14.0-18.0); Immature Granulocyte Absolute 0.03 K/mm3 (0.00-0.031); Immature Granulocyte Percent A 0.4 % (0-0.5); Lymphocytes Absolute Auto 0.69 K/mm3 (0.9-3.2); Lymphocytes Percent Auto 8.2 % (18.3-44.2); Mean Corpuscular HGB Conc 33.7 g/dl (32-36); Mean Corpuscular Hemoglobin 29.7 pg (26-34); Mean Corpuscular Volume 88.2 fl (80-100); Mean Platelet Volume 10.3 fl (7.4-10.4); Monocytes Absolute Auto 0.7 K/mm3 (0.1-0.6); Monocytes Percent Auto 8.7 % (2.6-8.5); Neutrophils Absolute Auto 6.9 K/mm3 (1.3-6.7); Neutrophils Percent Auto 81.5 % (45.5-73.1); Platelet Count Result 256 k/mm3 (150-375); Red Blood Count 4.31 M/mm3 (4.6-6.20); Red Cell Distribution Width 13.3 % (11.5-14.5); White Blood Count 8.4 K/mm3 (4.5-10.0)
[2023-11-11 06:47] LABS: Alanine Aminotransferase 54 U/L (6-50); Albumin Level 3.1 g/dL (3.5-5.1); Alkaline Phosphatase 107 U/L (38-126); Anion Gap 6 mmol/L (4-12); Aspartate Amino Transferase 106 U/L (17-59); Blood Urea Nitrogen 12 mg/dL (9-20); Calcium 8.6 mg/dL (8.4-10.2); Carbon Dioxide 28 mmol/L (22-30); Chloride 102 mmol/L (98-107); Estimated CRCL calculation 61 ml/min; Estimated Glomerular Filt Rate > 60; Glucose 120 mg/dL (65-110); Potassium 3.8 mmol/L (3.4-5.0); Sodium 136 mmol/L (137-145)
[2023-11-11 08:45] VITALS: O2SAT 96
[2023-11-11 09:33] VITALS: O2SAT 93
[2023-11-11] MEDS: AZITHROMYCIN 500 MG/NS 250 ML 500 MG/250 ML BAG 250 MG IVPB (10:49)
[2023-11-11] MEDS: ASPIRIN 81 MG ENTERIC TABLET PO (10:50)
[2023-11-11] MEDS: THIAMINE HCL 50 MG TABLET PO (10:50)
[2023-11-11] MEDS: CYANOCOBALAMIN 1,000 MCG TABLET 1000 MCG PO (10:50)
[2023-11-11] MEDS: MEMANTINE 10 MG TABLET PO (10:50)
[2023-11-11] MEDS: guaiFENesin 12 HR 600 MG TABCR PO (10:50)
[2023-11-11] MEDS: ATORVASTATIN 20 MG TABLET PO (10:50)
[2023-11-11] MEDS: THIAMINE HCL 100 MG TABLET 200 MG PO (10:50)
[2023-11-11] MEDS: TAMSULOSIN HCL 0.4 MG CAPSULE PO (10:50)
[2023-11-11] MEDS: DOCUSATE SODIUM 100 MG CAPSULE PO (10:51)
--- NOTE | 2023-11-11 11:11 | P.PNIM_ITS ---
Progress Note: A&P Assessment and Plan (1) AMS (altered mental status): Qualifiers: Altered mental status type: unspecified Qualified Code(s): R41.82 - Altered mental status, unspecified Code(s): R41.82 - Altered mental status, unspecified Status: Acute Assessment and Plan: 11/08/23: * CTA the head neck showed age-related changes, 0% stenosis to bilateral internal carotid arteries * Continue neuro checks * Suspect metabolic encephalopathy secondary to UTI/pneumonia 11/09/23: * Continue neuro checks * Continue and NPO status 11/11/23: Patient appears to be at baseline nonverbal status. (2) Pneumonia: Qualifiers: Laterality: bilateral Lung location: unspecified part of lung Pneumonia type: due to unspecified organism Qualified Code(s): J18.9 - Pneumonia, unspecified organism Code(s): J18.9 - Pneumonia, unspecified organism Status: Acute Assessment and Plan: 11/08/23: * Chest x-ray showing pneumonia * Patient started on Rocephin and azithromycin * MRSA negative * Viral PCR COVID positive however it was also positive on 10/24 * Sputum culture pending * Continue neb treatments * Currently on 3 L nasal cannula, continue to wean O2 for oxygen saturation greater than 92% * White blood cell count down to 15.8 today * Patient not awake enough to clear secretions, NT placed for suctioning as needed * May require transfer to IMU for closer monitoring * Will give 20 mg of IV Lasix now 11/09/23: * White blood cell count down to 12.3 * Sputum culture negative * Blood culture showing no growth on preliminary read * Continue Rocephin and azithromycin IV 11/09- wbc-9.5 continue to monitor 11/11/23: * Patient's respiratory status is stable overall. * WBCs have decreased today to 8.4. * Continue Rocephin and azithromycin at this time. * Recheck COVID test today. * Sputum culture negative. * Very blood cultures still without any growth. * Continue to monitor and trend patient's vital signs and labs. * Patient with difficulty swallowing pills crushed in applesauce this morning noted per nurse. Formal swallow evaluation with speech is ordered. (3) Acute UTI: Code(s): N39.0 - Urinary tract infection, site not specified Status: Acute Assessment and Plan: 11/08/23: * UA showing 1+ leukocyte, 21-50 WBC, 4+ bacteria * Urine culture obtained and are pending * Continue Rocephin 11/09/23: * Urine culture showing E coli on final read which is rodriguez sensitive * Altered mental status, we will continue with IV Rocephin for now 11/11/23: * Continue antibiotics of Rocephin for E coli urinary tract infections that is pansensitive. * Not meeting sepsis criteria. (4) GEMA (acute kidney injury): Code(s): N17.9 - Acute kidney failure, unspecified Status: Resolved Assessment and Plan: 11/08/23: * Creatinine down to 1.4 * Baseline creatinine 1.0 * Continue to trend * Woodson placed for accurate I&O 11/09/23: * Creatinine to 1.1 * Continue to trend 11/09- stable- monitor 11/11/23: * Resolved in BUN of 0.9/12 Time Spent With Patient Time with patient: 15 - 25 minutes Subjective Date/time seen: 11/11/23 11:11 Interval history: This non-verbal, elderly male patient who is currently under treatment pne umonia, urinary tract infection it GEMA is assessed at the bedside today in interval assessment. Patient remains without any signs or symptoms of acute distress. He continues to receive IV antibiot
--- NOTE | 2023-11-11 11:11 | PM.IMPN ---
Progress Note: A&P Assessment and Plan (1) AMS (altered mental status): Qualifiers: Altered mental status type: unspecified Qualified Code(s): R41.82 - Altered mental status, unspecified Code(s): R41.82 - Altered mental status, unspecified Status: Acute Assessment and Plan: 11/08/23: CTA the head neck showed age-related changes, 0% stenosis to bilateral internal carotid arteries Continue neuro checks Suspect metabolic encephalopathy secondary to UTI/pneumonia 11/09/23: Continue neuro checks Continue and NPO status 11/11/23: Patient appears to be at baseline nonverbal status. (2) Pneumonia: Qualifiers: Laterality: bilateral Lung location: unspecified part of lung Pneumonia type: due to unspecified organism Qualified Code(s): J18.9 - Pneumonia, unspecified organism Code(s): J18.9 - Pneumonia, unspecified organism Status: Acute Assessment and Plan: 11/08/23: Chest x-ray showing pneumonia Patient started on Rocephin and azithromycin MRSA negative Viral PCR COVID positive however it was also positive on 10/24 Sputum culture pending Continue neb treatments Currently on 3 L nasal cannula, continue to wean O2 for oxygen saturation greater than 92% White blood cell count down to 15.8 today Patient not awake enough to clear secretions, NT placed for suctioning as needed May require transfer to IMU for closer monitoring Will give 20 mg of IV Lasix now 11/09/23: White blood cell count down to 12.3 Sputum culture negative Blood culture showing no growth on preliminary read Continue Rocephin and azithromycin IV 11/09- wbc-9.5 continue to monitor 11/11/23: Patient's respiratory status is stable overall. WBCs have decreased today to 8.4. Continue Rocephin and azithromycin at this time. Recheck COVID test today. Sputum culture negative. Very blood cultures still without any growth. Continue to monitor and trend patient's vital signs and labs. Patient with difficulty swallowing pills crushed in applesauce this morning noted per nurse. Formal swallow evaluation with speech is ordered. (3) Acute UTI: Code(s): N39.0 - Urinary tract infection, site not specified Status: Acute Assessment and Plan: 11/08/23: UA showing 1+ leukocyte, 21-50 WBC, 4+ bacteria Urine culture obtained and are pending Continue Rocephin 11/09/23: Urine culture showing E coli on final read which is rodriguez sensitive Altered mental status, we will continue with IV Rocephin for now 11/11/23: Continue antibiotics of Rocephin for E coli urinary tract infections that is pansensitive. Not meeting sepsis criteria. (4) GEMA (acute kidney injury): Code(s): N17.9 - Acute kidney failure, unspecified Status: Resolved Assessment and Plan: 11/08/23: Creatinine down to 1.4 Baseline creatinine 1.0 Continue to trend Woodson placed for accurate I&O 11/09/23: Creatinine to 1.1 Continue to trend 11/09- stable- monitor 11/11/23: Resolved in BUN of 0.9 Time Spent With Patient Time with patient: 15 - 25 minutes Subjective Date/time seen: 11/11/23 11:11 Interval history: This non-verbal, elderly male patient who is currently under treatment pneumonia, urinary tract infection it GEMA is assessed at the bedside today in interval assessment. Patient remains without any signs or symptoms of acute distress. He continues to receive IV antibiotics for his pneumonia and E coli urinary tract infection. Concern was brought to me by the staff nurse today at that patient has been NPO for the past 4 days and has not received his regular medications for the past 4 days. Attempted to give patient medication today in applesauce and it was noted that patient did appear to have some difficulty swallowing. Patient to be kept NPO and swallow eval ordered. Suspect this may be causation of patient's pneumonia. Patient's vital signs are otherwise unremark
[2023-11-11 11:54] LABS: Glucose Point of Care 90 mg/dl (65-105)
[2023-11-11 12:16] LABS: SARS-CoV-2 RNA PCR Positive (Negative)
--- NOTE | 2023-11-11 13:41 | PCNFU ---
Nutrition Follow-Up Complete: Unintentional weight loss related to probable decreased intake as evidenced by a noted slight weight loss in EMR over 8 months Goal:PO intake 75% of meals Pt not meeting goal. Pt has actually been NPO due to not being alert enough Pt current nutrition is NPO. Nutrition recommendation: Advance diet per MBS and speech recommendations Last recorded weight is 72 kg. Bowel Motility: +BM 11/09 Labs Reviewed: Hgb:12.8, HCT:38, Alb:3.1, NA:136, Glu:120 Meds Noted: Vit B 12, thiamin Skin: WNL Additional Notes: Pt has a diet order for heart healthy but has not actually had any intake, he has been NPO due to not alert enough. Nursing reports pt is scheduled for a bedside eval with speech. will monitor results and recommendations and follow up Monitor intake, wt, labs. Follow up in 1 day.
--- NOTE | 2023-11-11 14:01 | PCSTNOTE ---
Please refer to the Bedside Swallow Evaluation in the EMR. Please note, silent aspiration cannot be ruled out at bedside. The above confused pt was seen bedside for a swallow evaluation. Per nursing the pt has been NPO x 4 days but was on a regular diet with thin liquids prior to admit. Pt presented with eyes open & made eye contact but did not respond to questions or directions. He was positioned upright in the bed in an optimal position for oral intake. Oral motor exam could not be completed due to pt not following directives. He was tested with ice chips, applesauce, and pudding in 1/2 tsp amounts; oral stage appeared intact but any residual could not be fully assessed. No leakage occurred. Audible swallow noted with each trial then somewhat of a wet & gurgled phonation. Subtle throat clearing/slight cough was also exhibited. No further oral trials were given at bedside as a modified barium swallow study is recommended to further assess swallow ability and determine a safe diet.
--- NOTE | 2023-11-11 15:10 | PCSTNOTE ---
Please refer to the Modified Barium Swallow Evaluation in the EMR. he pt was seated for a lateral view and only presented with 2 trials of 3-4 ml thin liquids. The second trial was done with head/chin repositioned slightly downward. Pt again, as seen at bedside swallow, had eyes open but he did not verbalize & did not follow any directives. Upon presentation of both trials, the pt appeared orally unaware as contents spilled posteriorly into the valleculae, pyriform sinuses, and subsequently open airway. As swallow triggered, reduced tongue base retraction, reduced pharyngeal squeeze, reduced laryngeal elevation, and reduced vocal fold adduction was exhibited. Pt triggered an occasional swallow in response to the pyriform sinus residue and attempted throat clearing and coughing which only cleared a small amount of the residue and aspirate. Overall pt's swallow ability was too severely impaired to attempt any further consistencies. Impression: severe dysphagia Recommendation: non oral mean of nutrition. No further ST at this time due to pt's decreased response and inability to follow commands.
[2023-11-11 15:24] VITALS: BP 135/82; PULSE 75; RESP 16; TEMP 36.4; O2SAT 99
[2023-11-11 18:37] LABS: Glucose Point of Care 80 mg/dl (65-105)
[2023-11-11 23:35] LABS: Glucose Point of Care 81 mg/dl (65-105)
[2023-11-12] MEDS: DEXTROSE 5%/0.9% SOD CHL 1,000 ML 100 ML IV CONT (04:45)
[2023-11-12 05:32] LABS: Glucose Point of Care 109 mg/dl (65-105)
[2023-11-12 05:55] VITALS: BP 142/85; PULSE 70; RESP 14; TEMP 36.6; O2SAT 98
[2023-11-12] MEDS: IPRATROPIUM NASAL SPRAY 0.03% 15 ML BOTTLE 2 SPRAY NASAL ×2 (06:32→22:00)
[2023-11-12 07:10] LABS: Basophils Percent Auto 0.4 % (0.2-1.2); Eosinophils Absolute Auto 0.2 K/mm3 (0-0.3); Eosinophils Percent Auto 2.6 % (0-4.4); Hematocrit 36.7 % (42.0-52.0); Hemoglobin 12.3 g/dL (14.0-18.0); Immature Granulocyte Absolute 0.02 K/mm3 (0.00-0.031); Immature Granulocyte Percent A 0.4 % (0-0.5); Lymphocytes Absolute Auto 0.72 K/mm3 (0.9-3.2); Lymphocytes Percent Auto 12.6 % (18.3-44.2); Mean Corpuscular HGB Conc 33.5 g/dl (32-36); Mean Corpuscular Hemoglobin 28.8 pg (26-34); Mean Corpuscular Volume 85.9 fl (80-100); Mean Platelet Volume 9.8 fl (7.4-10.4); Monocytes Absolute Auto 0.7 K/mm3 (0.1-0.6); Monocytes Percent Auto 11.4 % (2.6-8.5); Neutrophils Absolute Auto 4.2 K/mm3 (1.3-6.7); Neutrophils Percent Auto 72.6 % (45.5-73.1); Platelet Count Result 248 k/mm3 (150-375); Red Blood Count 4.27 M/mm3 (4.6-6.20); Red Cell Distribution Width 13.4 % (11.5-14.5); White Blood Count 5.7 K/mm3 (4.5-10.0)
[2023-11-12 07:19] LABS: Alanine Aminotransferase 202 U/L (6-50); Albumin Level 2.8 g/dL (3.5-5.1); Alkaline Phosphatase 186 U/L (38-126); Anion Gap 6 mmol/L (4-12); Aspartate Amino Transferase 227 U/L (17-59); Bilirubin,Total 1.2 mg/dL (0.2-1.3); Blood Urea Nitrogen 12 mg/dL (9-20); Calcium 8.4 mg/dL (8.4-10.2); Carbon Dioxide 27 mmol/L (22-30); Chloride 104 mmol/L (98-107); Estimated CRCL calculation 56 ml/min; Estimated Glomerular Filt Rate > 60; Glucose 115 mg/dL (65-110); Potassium 3.4 mmol/L (3.4-5.0); Sodium 137 mmol/L (137-145)
--- NOTE | 2023-11-12 11:04 | PCNFU ---
Nutrition Follow-Up Complete: Unintentional weight loss related to probable decreased intake as evidenced by a noted slight weight loss in EMR over 8 months Goal:PO intake 75% of meals Pt not meeting goal. Pt has not been alert enough for PO intake, failed MBS yesterday and recommendations for non oral feedings. Pt current nutrition is NPO. Nutrition recommendation: Last recorded weight is 72 kg. Bowel Motility: +BM 11/09 Labs Reviewed: Hgb:12.8, HCT:38, Alb:3.1, NA:136, Glu:180 Meds Noted: Skin: no skin issues noted Additional Notes: Pt is NPO and has been due to not being alert enough. MBS yesterday that recommends non oral feedings due to risk of aspiration. Nursing reports the family is discussing PEG placement vs hospice. Recommend for tube feedings should the family choose that route: Jevity 1.5 @ 60ml/hr goal rate or bolus conversion of 260ml bolus feed 6x/day. This provides 1980kcals, 84g protein per day. Monitor intake, wt, labs. Follow up in 3 days.
[2023-11-12 11:36] LABS: Glucose Point of Care 95 mg/dl (65-105)
--- NOTE | 2023-11-12 11:49 | P.PNIM_ITS ---
Progress Note: A&P Assessment and Plan (1) AMS (altered mental status): Qualifiers: Altered mental status type: unspecified Qualified Code(s): R41.82 - Altered mental status, unspecified Code(s): R41.82 - Altered mental status, unspecified Status: Acute Assessment and Plan: 11/08/23: * CTA the head neck showed age-related changes, 0% stenosis to bilateral internal carotid arteries * Continue neuro checks * Suspect metabolic encephalopathy secondary to UTI/pneumonia 11/09/23: * Continue neuro checks * Continue and NPO status 11/11/23: Patient appears to be at baseline nonverbal status. 11/12/23: * No change in his overall mental status. (2) Pneumonia: Qualifiers: Laterality: bilateral Lung location: unspecified part of lung Pneu monia type: due to unspecified organism Qualified Code(s): J18.9 - Pneumonia, unspecified organism Code(s): J18.9 - Pneumonia, unspecified organism Status: Acute Assessment and Plan: 11/08/23: * Chest x-ray showing pneumonia * Patient started on Rocephin and azithromycin * MRSA negative * Viral PCR COVID positive however it was also positive on 10/24 * Sputum culture pending * Continue neb treatments * Currently on 3 L nasal cannula, continue to wean O2 for oxygen saturation greater than 92% * White blood cell count down to 15.8 today * Patient not awake enough to clear secretions, NT placed for suctioning as needed * May require transfer to IMU for closer monitoring * Will give 20 mg of IV Lasix now 11/09/23: * White blood cell count down to 12.3 * Sputum culture negative * Blood culture showing no growth on preliminary read * Continue Rocephin and azithromycin IV 11/09- wbc-9.5 continue to monitor 11/11/23: * Patient's respiratory status is stable overall. * WBCs have decreased today to 8.4. * Continue Rocephin and azithromycin at this time. * Recheck COVID test today. * Sputum culture negative. * Very blood cultures still without any growth. * Continue to monitor and trend patient's vital signs and labs. * Patient with difficulty swallowing pills crushed in applesauce this morning noted per nurse. Formal swallow evaluation with speech is ordered. 11/12/23: * Pt failed swallow eval and barium swallow. He must remain NPO * Continue IVF * Continue IV Abx as he cannot have any oral. * I discussed with family including HARSHAD Enriquez who is his sister and also spoke with one of his sons regarding Feeding tube vs Hospice. They have asked for more time to think and process the situation. (3) Acute UTI: Code(s): N39.0 - Urinary tract infection, site not specified Status: Acute Assessment and Plan: 11/08/23: * UA showing 1+ leukocyte, 21-50 WBC, 4+ bacteria * Urine culture obtained and are pending * Continue Rocephin 11/09/23: * Urine culture showing E coli on final read which is rodriguez sensitive * Altered mental status, we will continue with IV Rocephin for now 11/11/23: * Continue antibiotics of Rocephin for E coli urinary tract infections that is pansensitive. * Not meeting sepsis criteria. 11/12/23: * Tomorrow is final day of Rocephin IV. * Not meeting sepsis criteria. (4) GEMA (acute kidney injury): Code(s): N17.9 - Acute kidney failure, unspecified Status: Resolved Assessment and Plan: 11/08/23: * Creatinine down to 1.4 * Baseline creatinine 1.0 * Continue to trend * Woodson placed for accurate I&O 11/09/23: * Creatinine to 1.1 * Continue
--- NOTE | 2023-11-12 11:49 | PM.IMPN ---
Progress Note: A&P Assessment and Plan (1) AMS (altered mental status): Qualifiers: Altered mental status type: unspecified Qualified Code(s): R41.82 - Altered mental status, unspecified Code(s): R41.82 - Altered mental status, unspecified Status: Acute Assessment and Plan: 11/08/23: CTA the head neck showed age-related changes, 0% stenosis to bilateral internal carotid arteries Continue neuro checks Suspect metabolic encephalopathy secondary to UTI/pneumonia 11/09/23: Continue neuro checks Continue and NPO status 11/11/23: Patient appears to be at baseline nonverbal status. 11/12/23: No change in his overall mental status. (2) Pneumonia: Qualifiers: Laterality: bilateral Lung location: unspecified part of lung Pneumonia type: due to unspecified organism Qualified Code(s): J18.9 - Pneumonia, unspecified organism Code(s): J18.9 - Pneumonia, unspecified organism Status: Acute Assessment and Plan: 11/08/23: Chest x-ray showing pneumonia Patient started on Rocephin and azithromycin MRSA negative Viral PCR COVID positive however it was also positive on 10/24 Sputum culture pending Continue neb treatments Currently on 3 L nasal cannula, continue to wean O2 for oxygen saturation greater than 92% White blood cell count down to 15.8 today Patient not awake enough to clear secretions, NT placed for suctioning as needed May require transfer to IMU for closer monitoring Will give 20 mg of IV Lasix now 11/09/23: White blood cell count down to 12.3 Sputum culture negative Blood culture showing no growth on preliminary read Continue Rocephin and azithromycin IV 11/09- wbc-9.5 continue to monitor 11/11/23: Patient's respiratory status is stable overall. WBCs have decreased today to 8.4. Continue Rocephin and azithromycin at this time. Recheck COVID test today. Sputum culture negative. Very blood cultures still without any growth. Continue to monitor and trend patient's vital signs and labs. Patient with difficulty swallowing pills crushed in applesauce this morning noted per nurse. Formal swallow evaluation with speech is ordered. 11/12/23: Pt failed swallow eval and barium swallow. He must remain NPO Continue IVF Continue IV Abx as he cannot have any oral. I discussed with family including HARSHAD Enriquez who is his sister and also spoke with one of his sons regarding Feeding tube vs Hospice. They have asked for more time to think and process the situation. (3) Acute UTI: Code(s): N39.0 - Urinary tract infection, site not specified Status: Acute Assessment and Plan: 11/08/23: UA showing 1+ leukocyte, 21-50 WBC, 4+ bacteria Urine culture obtained and are pending Continue Rocephin 11/09/23: Urine culture showing E coli on final read which is rodriguez sensitive Altered mental status, we will continue with IV Rocephin for now 11/11/23: Continue antibiotics of Rocephin for E coli urinary tract infections that is pansensitive. Not meeting sepsis criteria. 11/12/23: Tomorrow is final day of Rocephin IV. Not meeting sepsis criteria. (4) GEMA (acute kidney injury): Code(s): N17.9 - Acute kidney failure, unspecified Status: Resolved Assessment and Plan: 11/08/23: Creatinine down to 1.4 Baseline creatinine 1.0 Continue to trend Woodson placed for accurate I&O 11/09/23: Creatinine to 1.1 Continue to trend 11/09- stable- monitor 11/11/23: Resolved in BUN of 0.9/12 Time Spent With Patient Time with patient: 25 - 35 minutes Subjective Date/time seen: 11/12/23 11:49 Interval history: This pt was examined at the bedside today in interval assessment. He has no change in his overall condition and he remains non-verbal unable to give any interval change in his overall condition. He had a swallow eval yesterday and an attempted barium swallow but failed both. Pt must remain NPO. He is recei
[2023-11-12 13:56] VITALS: BP 119/73; PULSE 65; RESP 20; TEMP 36.8; O2SAT 95
--- NOTE | 2023-11-12 16:42 | WPDGICN ---
Assessment and Plan Assessment and plan (1) Acute encephalopathy: Code(s): G93.40 - Encephalopathy, unspecified Status: Acute Assessment and Plan: anorexia and more confused than usual, also risk of aspiration family is agreeable to peg placement, will do it tomorrow (2) GEMA (acute kidney injury): Code(s): N17.9 - Acute kidney failure, unspecified Status: Resolved Assessment and Plan: by primary (3) Decreased oral intake: Code(s): R63.8 - Other symptoms and signs concerning food and fluid intake Status: Acute (4) Malnutrition: Code(s): E46 - Unspecified protein-calorie malnutrition Status: Acute Assessment and Plan: he has not been eating g-tube placement (5) Pneumonia: Qualifiers: Laterality: bilateral Lung location: unspecified part of lung Pneumonia type: due to unspecified organism Qualified Code(s): J18.9 - Pneumonia, unspecified organism Code(s): J18.9 - Pneumonia, unspecified organism Status: Acute Assessment and Plan: on abx GI Consult Note Consult date/time: 11/12/23 16:42 Reason for consult: malnutrition, risk of aspiration HPI: Ulysses Lane is a 78 year old male who is a fpc resident at [facility] was brought here via EMS 4 days ago for further evaluation of altered mental status. Patient has history of dementia and he was found very lethargic. History is obtained from records since he is not talking. Patient recently had COVID, initially tested positive on October 25, 2023. Per sister, patient is normally minimally verbal. At baseline he will say yes, no, hi, and one word answers. ED workup showed: WBC 14.3, hemoglobin 6.6, normal coags, creatinine 1.9 and GFR 42 (previously 1.0 and >60 on 04/04/23), lactic 2.4, procalcitonin 0.1, TSH 4.4, UA suggestive of possible UTI. CXR showed patchy bilateral airspace disease compatible with pneumonia. CTA of the head/neck showed no acute findings. He failed bedside speech evaluation and primary talked to family, agreeable to have PEG placement since he is at risk of aspiration and not eating. Review of Systems Review of Systems: ROS unobtainable: Yes unobtainable due to mental status PMFSH Past Medical History Medical History (Updated 11/12/23 @ 16:47 by Clovis Holland MD) Acute non-ST elevation myocardial infarction (NSTEMI) (03/2023) Chronic kidney disease, stage 3 (moderate) Colon cancer screening Elevated prostate specific antigen [PSA] Erectile dysfunction Essential (primary) hypertension Malnutrition Primary open-angle glaucoma, bilateral, stage unspecified PVD (peripheral vascular disease) Unspecified iridocyclitis Family History Family History Father Carcinoma of colon Patient's father is Family history of malignant neoplasm Mother Patient's mother is Family history unknown Social History Social History Smoking packs per day: 0.5 Smoking cigarettes per day: 10.0 Years smoked: 60 Smoking pack-years: 30.00 Smoking status: Former smoker Alcohol intake: former Alcohol use details: social Substance use: never Substance use type: does not use Lack of Transportation: YES Lack of Food: Never True Current Housing: I Have Housing Concerned About Future Housing: No Difficulty Paying Gas/Electric Bills: No Difficulty Paying for Meds: No Currently Unemployed: No Education: High School Diploma/GED Difficulty w/ Childcare or Family Care: No Living arrangements: with family Spiritual care concerns: No Meds Home Medications and Allergies Home Medications Medication Instructions Recorded Confirmed Type cyanocobalamin (vitamin B-12) 1,000 mcg PO DAILY 04/03/21 11/07/23 History 1,000 mcg tablet memantine 10 mg tablet 10 mg PO
[2023-11-12 17:59] LABS: Glucose Point of Care 94 mg/dl (65-105)
[2023-11-12] MEDS: DEXTROSE 5%/0.9% SOD CHL 1,000 ML 75 ML IV CONT (20:46)
[2023-11-12 21:33] VITALS: BP 133/71; PULSE 62; RESP 13; TEMP 36.9; O2SAT 97
[2023-11-13] VITALS (7 sets, daily range): BP systolic 99–140; BP diastolic 63–80; PULSE 54–76; RESP 12–24; TEMP 36.5–37.3; O2SAT 95–100
[2023-11-13 00:13] LABS: Glucose Point of Care 101 mg/dl (65-105)
[2023-11-13 05:46] LABS: Glucose Point of Care 106 mg/dl (65-105)
[2023-11-13] MEDS: IPRATROPIUM NASAL SPRAY 0.03% 15 ML BOTTLE 2 SPRAY NASAL ×2 (06:08→13:12)
[2023-11-13 06:18] LABS: Basophils Percent Auto 0.5 % (0.2-1.2); Eosinophils Absolute Auto 0.2 K/mm3 (0-0.3); Hematocrit 33.7 % (42.0-52.0); Hemoglobin 11.7 g/dL (14.0-18.0); Immature Granulocyte Absolute 0.02 K/mm3 (0.00-0.031); Immature Granulocyte Percent A 0.4 % (0-0.5); Lymphocytes Percent Auto 12.5 % (18.3-44.2); Mean Corpuscular HGB Conc 34.7 g/dl (32-36); Mean Corpuscular Hemoglobin 30.3 pg (26-34); Mean Corpuscular Volume 87.3 fl (80-100); Mean Platelet Volume 9.8 fl (7.4-10.4); Monocytes Absolute Auto 0.6 K/mm3 (0.1-0.6); Monocytes Percent Auto 10.3 % (2.6-8.5); Neutrophils Absolute Auto 4.1 K/mm3 (1.3-6.7); Neutrophils Percent Auto 73.3 % (45.5-73.1); Platelet Count Result 238 k/mm3 (150-375); Red Blood Count 3.86 M/mm3 (4.6-6.20); Red Cell Distribution Width 13.7 % (11.5-14.5); White Blood Count 5.6 K/mm3 (4.5-10.0)
[2023-11-13 06:29] LABS: Alanine Aminotransferase 148 U/L (6-50); Albumin Level 2.8 g/dL (3.5-5.1); Alkaline Phosphatase 195 U/L (38-126); Anion Gap 5 mmol/L (4-12); Aspartate Amino Transferase 106 U/L (17-59); Bilirubin,Total 0.9 mg/dL (0.2-1.3); Blood Urea Nitrogen 13 mg/dL (9-20); Calcium 8.4 mg/dL (8.4-10.2); Carbon Dioxide 27 mmol/L (22-30); Chloride 105 mmol/L (98-107); Estimated CRCL calculation 56 ml/min; Estimated Glomerular Filt Rate > 60; Glucose 104 mg/dL (65-110); Potassium 3.3 mmol/L (3.4-5.0); Sodium 137 mmol/L (137-145)
--- NOTE | 2023-11-13 09:37 | PCDIET ---
TUBE FEEDING RECOMMENDATIONS: Jevity 1.5 @ 60ml/hr goal rate or bolus conversion of 260ml bolus feed 6x/day. This provides 1980kcals, 84g protein, 1003 ml free water per day. Flush 150 ml free water q 4 hours for total water 1900 ml/day. Plan is for PEG placement this afternoon r/t inability to swallow.
[2023-11-13] MEDS: DEXTROSE 5%/0.9% SOD CHL 1,000 ML 75 ML IV CONT (10:00)
[2023-11-13 11:59] LABS: Glucose Point of Care 100 mg/dl (65-105)
--- NOTE | 2023-11-13 14:04 | PC.NURSE ---
To GI Lab per [black], IV [ ]. Report given to [nael].
[2023-11-13] MEDS: LACTATED RINGERS 1,000 ML 150 ML IV CONT (14:32)
--- NOTE | 2023-11-13 15:08 | WPDANESEPPF ---
Anes - Initial Pre Proc Eval Procedure: Operation Date: 11/13/23 15:30 Proposed Procedures p Percutaneous Endoscopic Gastrostomy - Colvis Holland MD Date/Time: 11/13/23 15:08 Surgeon: RUBEN Rios Pre Op Diagnosis: ALTERED MENTAL STATUS,PNEUMONIA Patient Data Age: 78 Gender: M Height: 1.88 m Weight: 72 kg Last Vital Signs Temp 97.7 F 11/13/23 14:29 Pulse 54 L 11/13/23 14:29 Resp 20 11/13/23 14:29 BP 140/71 11/13/23 14:29 Pulse Ox 97 11/13/23 14:29 O2 Del Method Room Air 11/13/23 14:29 O2 Flow Rate 2 11/10/23 14:00 FiO2 21 11/11/23 09:33 Allergies Allergy/AdvReac Type Severity Reaction Status Date / Time No Known Allergies Allergy Unknown Verified 11/07/23 09:28 Home Medications Medication Instructions Recorded Confirmed Type cyanocobalamin (vitamin B-12) 1,000 mcg PO DAILY 04/03/21 11/07/23 History 1,000 mcg tablet memantine 10 mg tablet 10 mg PO DAILY 04/03/21 11/07/23 History aspirin 81 mg tablet,delayed 81 mg PO DAILY 06/14/22 11/07/23 History release (Adult Aspirin Regimen) cetirizine 10 mg tablet 10 mg PO DAILY PRN Congestion 06/14/22 11/07/23 History ipratropium bromide 21 mcg (0.03 See Rx Instructions .Route 06/14/22 11/07/23 Rx %) nasal spray .COMPLEX #90 mL docusate sodium 100 mg capsule 100 mg PO BID 07/22/22 11/07/23 History (Colace) atorvastatin 20 mg tablet 20 mg PO DAILY #90 tabs 01/22/23 11/07/23 Rx thiamine HCl (vitamin B1) 250 mg 250 mg PO DAILY 03/28/23 11/07/23 History tablet betaxolol 0.5 % eye drops 1 drp EACH EYE BID 11/07/23 11/07/23 History bisacodyl 10 mg rectal suppository 10 mg RECTAL DAILY PRN Constipation 11/07/23 11/07/23 History magnesium citrate (Citroma oral 300 ml PO DAILY PRN Constipation 11/07/23 11/07/23 History solution) magnesium hydroxide 400 mg/5 mL 30 ml PO DAILY PRN Constipation 11/07/23 11/07/23 History oral suspension (Milk of Magnesia) sodium phosphates 19 gram-7 118 ml RECTAL ONCE PRN Constipation 11/07/23 11/07/23 History gram/118 mL enema (Fleet Enema) tamsulosin 0.4 mg capsule 0.4 mg PO DAILY 11/07/23 11/07/23 History Laboratory Tests 11/12/23 11/13/23 11/13/23 17:56 00:10 05:44 WBC RBC Hgb Hct MCV MCH MCHC RDW Plt Count MPV Immature Gran % (Auto) Neut % (Auto) Lymph % (Auto) [place] % (Auto) Eos % (Auto) Baso % (Auto) Lymph # (Auto) [place] # (Auto) Eos # (Auto) Baso # (Auto) Abs Immat Gran (auto) Absolute Neuts (auto) Absolute Nucleated RBC Nucleated RBC % Sodium Potassium Chloride Carbon Dioxide Anion Gap BUN Creatinine Estim Creat Clear Calc Estimated GFR Glucose POC Capillary Glucose 94 mg/dl 101 mg/dl 106 H mg/dl (65-105) (65-105) (65-105) Calcium Total Bilirubin AST ALT Alkaline Phosphatase Total Protein Albumin 11/13/23 11/13/23 05:53 11:52 WBC 5.6 K/mm3 (4.5-10.0) RBC 3.86 L M/mm3 (4.6-6.20) Hgb 11.7 L g/dL (14.0-18.0) Hct 33.7 L % (42.0-52.0) MCV 87.3 fl (80-100) MCH 30.3 D pg (26-34) MCHC 34.7 g/dl (32-36) RDW 13.7 % (11.5-14.5) Plt Count 238 k/mm3 (150-375) MPV 9.8 fl (7.4-10.4) Immature Gran % (Auto) 0.4 % (0-0.5) Neut % (Auto) 73.3 H % (45.5-73.1) Lymph % (Auto) 12.5 L % (18.3-44.2) [place] % (Auto) 10.3 H % (2.6-8.5) Eos % (Auto) 3.0 % (0-4.4) Baso % (Auto) 0.5 % (0.2-1.2) Lymph # (Auto) 0.
[2023-11-13] MEDS: LIDOCAINE HCL 1% LOCAL INJ 20 ML VIAL 5 ML INFILTRATE (16:06)
--- NOTE | 2023-11-13 16:13 | PC.NURSE ---
Returned from GI Lab. Report received from [Sosa].
[2023-11-13 18:20] LABS: Glucose Point of Care 71 mg/dl (65-105)
--- NOTE | 2023-11-13 19:35 | P.PNIM_ITS ---
Progress Note: A&P Assessment and Plan (1) Dysphagia: Code(s): R13.10 - Dysphagia, unspecified Status: Acute Assessment and Plan: MBS: 11/10; IMPRESSION: Pharyngeal dysphagia with multiple episodes of laryngeal penetration and aspiration. Please correlate with speech pathologist findings and specific feeding recommendations. - Scheduled for PEG-Tube placement later today. - Maintain NPO status. (2) AMS (altered mental status): Qualifiers: Altered mental status type: unspecified Qualified Code(s): R41.82 - Altered mental status, unspecified Code(s): R41.82 - Altered mental status, unspecified Status: Acute Assessment and Plan: 11/08/23: * CTA the head neck showed age-related changes, 0% stenosis to bilateral internal carotid arteries * Continue neuro checks * Suspect metabolic encephalopathy secondary to UTI/pneumonia 11/09/23: * Continue neuro checks * Continue and NPO status 11/11/23: Patient appears to be at baseline nonverbal status. 11/12/23: * No change in his overall mental status. 11/13/23: - Appears to be at baseline mentation. - Continue to monitor for acute neuro changes. (3) Pneumonia: Qualifiers: Laterality: bilateral Lung location: unspecified part of lung Pneumonia type: due to unspecified organism Qualified Code(s): J18.9 - Pneumonia, unspecified organism Code(s): J18.9 - Pneumonia, unspecified organism Status: Acute Assessment and Plan: 11/08/23: * Chest x-ray showing pneumonia * Patient started on Rocephin and azithromycin * MRSA negative * Viral PCR COVID positive however it was also positive on 10/24 * Sputum culture pending * Continue neb treatments * Currently on 3 L nasal cannula, continue to wean O2 for oxygen saturation greater than 92% * White blood cell count down to 15.8 today * Patient not awake enough to clear secretions, NT placed for suctioning as needed * May require transfer to IMU for closer monitoring * Will give 20 mg of IV Lasix now 11/09/23: * White blood cell count down to 12.3 * Sputum culture negative * Blood culture showing no growth on preliminary read * Continue Rocephin and azithromycin IV 11/09- wbc-9.5 continue to monitor 11/11/23: * Patient's respiratory status is stable overall. * WBCs have decreased today to 8.4. * Continue Rocephin and azithromycin at this time. * Recheck COVID test today. * Sputum culture negative. * Very blood cultures still without any growth. * Continue to monitor and trend patient's vital signs and labs. * Patient with difficulty swallowing pills crushed in applesauce this morning noted per nurse. Formal swallow evaluation with speech is ordered. 11/12/23: * Pt failed swallow eval and barium swallow. He must remain NPO * Continue IVF * Continue IV Ceftriaxone as he cannot have any oral. * I discussed with family including HARSHAD Enriquez who is his sister and also spoke with one of his sons regarding Feeding tube vs Hospice. They have asked for more time to think and process the situation. * 11/13/23: Patient currently on Ceftriaxone and we'll continue due to NPO status. - Consider PO abx after PEG-tube placement. (4) Acute UTI: Code(s): N39.0 - Urinary tract infection, site not specified Status: Acute Assessment and Plan: 11/08/23: * UA showing 1+ leukocyte, 21-50 WBC, 4+ bacteria * Urine culture obtained and are pending * Continue Rocephin 11/09/23: * Urine culture showing E coli on final read which is rodriguez sensitive * Alter
--- NOTE | 2023-11-13 19:35 | PM.IMPN ---
Progress Note: A&P Assessment and Plan (1) Dysphagia: Code(s): R13.10 - Dysphagia, unspecified Status: Acute Assessment and Plan: MBS: 11/10; IMPRESSION: Pharyngeal dysphagia with multiple episodes of laryngeal penetration and aspiration. Please correlate with speech pathologist findings and specific feeding recommendations. - Scheduled for PEG-Tube placement later today. - Maintain NPO status. (2) AMS (altered mental status): Qualifiers: Altered mental status type: unspecified Qualified Code(s): R41.82 - Altered mental status, unspecified Code(s): R41.82 - Altered mental status, unspecified Status: Acute Assessment and Plan: 11/08/23: CTA the head neck showed age-related changes, 0% stenosis to bilateral internal carotid arteries Continue neuro checks Suspect metabolic encephalopathy secondary to UTI/pneumonia 11/09/23: Continue neuro checks Continue and NPO status 11/11/23: Patient appears to be at baseline nonverbal status. 11/12/23: No change in his overall mental status. 11/13/23: - Appears to be at baseline mentation. - Continue to monitor for acute neuro changes. (3) Pneumonia: Qualifiers: Laterality: bilateral Lung location: unspecified part of lung Pneumonia type: due to unspecified organism Qualified Code(s): J18.9 - Pneumonia, unspecified organism Code(s): J18.9 - Pneumonia, unspecified organism Status: Acute Assessment and Plan: 11/08/23: Chest x-ray showing pneumonia Patient started on Rocephin and azithromycin MRSA negative Viral PCR COVID positive however it was also positive on 10/24 Sputum culture pending Continue neb treatments Currently on 3 L nasal cannula, continue to wean O2 for oxygen saturation greater than 92% White blood cell count down to 15.8 today Patient not awake enough to clear secretions, NT placed for suctioning as needed May require transfer to IMU for closer monitoring Will give 20 mg of IV Lasix now 11/09/23: White blood cell count down to 12.3 Sputum culture negative Blood culture showing no growth on preliminary read Continue Rocephin and azithromycin IV 11/09- wbc-9.5 continue to monitor 11/11/23: Patient's respiratory status is stable overall. WBCs have decreased today to 8.4. Continue Rocephin and azithromycin at this time. Recheck COVID test today. Sputum culture negative. Very blood cultures still without any growth. Continue to monitor and trend patient's vital signs and labs. Patient with difficulty swallowing pills crushed in applesauce this morning noted per nurse. Formal swallow evaluation with speech is ordered. 11/12/23: Pt failed swallow eval and barium swallow. He must remain NPO Continue IVF Continue IV Ceftriaxone as he cannot have any oral. I discussed with family including HARSHAD Enriquez who is his sister and also spoke with one of his sons regarding Feeding tube vs Hospice. They have asked for more time to think and process the situation. 11/13/23: Patient currently on Ceftriaxone and we'll continue due to NPO status. - Consider PO abx after PEG-tube placement. (4) Acute UTI: Code(s): N39.0 - Urinary tract infection, site not specified Status: Acute Assessment and Plan: 11/08/23: UA showing 1+ leukocyte, 21-50 WBC, 4+ bacteria Urine culture obtained and are pending Continue Rocephin 11/09/23: Urine culture showing E coli on final read which is rodriguez sensitive Altered mental status, we will continue with IV Rocephin for now 11/11/23: Continue antibiotics of Rocephin for E coli urinary tract infections that is pansensitive. Not meeting sepsis criteria. 11/12/23: Tomorrow is final day of Rocephin IV. Not meeting sepsis criteria. 11/13/23: Ceftriaxone to be completed today. - Blood cultures negative. (5) GEMA (acute kidney injury): Code(s): N17.9 - Acute kidney failure, unspecified Status: Res
[2023-11-13] MEDS: guaiFENesin 200 MG/10 ML UDC 600 MG FEED TUBE (21:53)
[2023-11-13] MEDS: DOCUSATE SODIUM LIQ 100 MG/10 ML UDC FEED TUBE (21:54)
[2023-11-13 23:51] LABS: Glucose Point of Care 103 mg/dl (65-105)
[2023-11-14] MEDS: DEXTROSE 5%/0.9% SOD CHL 1,000 ML 75 ML IV CONT (05:33)
[2023-11-14 05:57] VITALS: BP 116/67; PULSE 59; RESP 18; TEMP 36.6; O2SAT 96
[2023-11-14 06:02] LABS: Basophils Percent Auto 0.6 % (0.2-1.2); Eosinophils Absolute Auto 0.2 K/mm3 (0-0.3); Eosinophils Percent Auto 2.8 % (0-4.4); Hematocrit 33.8 % (42.0-52.0); Hemoglobin 11.2 g/dL (14.0-18.0); Immature Granulocyte Absolute 0.03 K/mm3 (0.00-0.031); Immature Granulocyte Percent A 0.6 % (0-0.5); Lymphocytes Percent Auto 15.1 % (18.3-44.2); Mean Corpuscular HGB Conc 33.1 g/dl (32-36); Mean Corpuscular Hemoglobin 28.9 pg (26-34); Mean Corpuscular Volume 87.3 fl (80-100); Mean Platelet Volume 9.6 fl (7.4-10.4); Monocytes Absolute Auto 0.5 K/mm3 (0.1-0.6); Monocytes Percent Auto 9.2 % (2.6-8.5); Neutrophils Absolute Auto 3.8 K/mm3 (1.3-6.7); Neutrophils Percent Auto 71.7 % (45.5-73.1); Platelet Count Result 261 k/mm3 (150-375); Red Blood Count 3.87 M/mm3 (4.6-6.20); Red Cell Distribution Width 13.6 % (11.5-14.5); White Blood Count 5.3 K/mm3 (4.5-10.0)
[2023-11-14 06:16] LABS: Alanine Aminotransferase 267 U/L (6-50); Albumin Level 2.6 g/dL (3.5-5.1); Alkaline Phosphatase 226 U/L (38-126); Anion Gap 7 mmol/L (4-12); Aspartate Amino Transferase 278 U/L (17-59); Blood Urea Nitrogen 14 mg/dL (9-20); Calcium 8.3 mg/dL (8.4-10.2); Carbon Dioxide 26 mmol/L (22-30); Chloride 104 mmol/L (98-107); Estimated CRCL calculation 56 ml/min; Estimated Glomerular Filt Rate > 60; Glucose 132 mg/dL (65-110); Potassium 3.4 mmol/L (3.4-5.0); Sodium 137 mmol/L (137-145)
[2023-11-14] MEDS: guaiFENesin 200 MG/10 ML UDC 600 MG FEED TUBE (10:19)
[2023-11-14] MEDS: ASPIRIN 81 MG ENTERIC TABLET PO (10:20)
[2023-11-14] MEDS: MEMANTINE 10 MG TABLET PO (10:20)
[2023-11-14] MEDS: CYANOCOBALAMIN 1,000 MCG TABLET 1000 MCG PO (10:20)
[2023-11-14] MEDS: DOCUSATE SODIUM LIQ 100 MG/10 ML UDC FEED TUBE (10:20)
[2023-11-14] MEDS: THIAMINE HCL 100 MG TABLET 200 MG PO (10:20)
[2023-11-14] MEDS: ENOXAPARIN 40 MG/0.4 ML SYRINGE SUB-Q (10:20)
[2023-11-14] MEDS: THIAMINE HCL 50 MG TABLET PO (10:21)
[2023-11-14] MEDS: ATORVASTATIN 20 MG TABLET PO (10:21)
[2023-11-14 11:50] LABS: Glucose Point of Care 121 mg/dl (65-105)
--- NOTE | 2023-11-14 12:48 | WPDGIPROGNO ---
Progress Note: A&P Assessment and Plan (1) Dysphagia: Code(s): R13.10 - Dysphagia, unspecified Status: Acute Assessment and Plan: tolerating tube feeding at goal will follow as needed (2) Acute encephalopathy: Code(s): G93.40 - Encephalopathy, unspecified Status: Acute Assessment and Plan: requiring total care (3) Pneumonia: Qualifiers: Laterality: bilateral Lung location: unspecified part of lung Pneumonia type: due to unspecified organism Qualified Code(s): J18.9 - Pneumonia, unspecified organism Code(s): J18.9 - Pneumonia, unspecified organism Status: Acute Assessment and Plan: on abx (4) Malnutrition: Code(s): E46 - Unspecified protein-calorie malnutrition Status: Acute (5) History of dementia: Code(s): Z86.59 - Personal history of other mental and behavioral disorders Status: Chronic Subjective Date/time seen: 11/14/23 12:48 Interval history: egd yesterday with peg placement tolerating tube feeding at 60 ml/h Review of Systems Review of Systems: All systems reviewed & are unremarkable except as noted in HPI and below Exam Narrative: General: Fair appearing, pleasantly confused. Const: General: comfortable Other: male, elderly chronically ill-appearing HENMT: Face/Nose/Sinus: Normal nares present Mouth: Yes dry mucous membranes Eyes: General: appearance normal, both eyes and all related structures Sclera: sclerae normal Neck: Neck: supple Resp: Auscultation: no wheezes Other: Decreased lung sounds in all lung roman. Cardio: Rate: regular rate Rhythm: regular rhythm GI: GI Palp: Yes Soft to palpation and No Guarding due to palpation present (GI) Auscultation: normal bowel sounds Other: g-tube in place Skin: General skin exam: normal color Neuro: Cranial nerves: Yes Equal, round and reactive pupils present Other: awake but non verbal, withdrawing from pain in upper extremities Psych: Other: unable to assess Objective Data Vital Signs Vital Signs: Vital Signs - 24 hr 11/13/23 14:29 11/13/23 16:08 11/13/23 16:18 Temperature 97.7 F Pulse Rate 54 L 63 59 L Respiratory Rate 20 24 H 23 H Blood Pressure 140/71 99/63 L 110/71 Pulse Oximetry 97 98 95 Oxygen Delivery Room Air Room Air Room Air 11/13/23 16:28 11/13/23 14:00 11/13/23 21:16 Temperature 98.0 F 99.1 F Pulse Rate 60 76 54 L Respiratory Rate 21 H 16 17 Blood Pressure 121/68 140/68 139/80 Pulse Oximetry 96 100 100 Oxygen Delivery Room Air 11/13/23 20:00 11/14/23 05:57 Temperature 97.9 F Pulse Rate 59 L Respiratory Rate 18 Blood Pressure 116/67 Pulse Oximetry 96 Oxygen Delivery Room Air Intake/Output Intake/Output: Intake & Output 11/11/23 11/12/23 11/13/23 11/14/23 23:59 23:59 23:59 23:59 Intake Total 2300 2050 2642.5 560 Output Total 1750 1150 1000 400 Balance 742 910 9107.5 160 Meds/Results Medications: Active Medications Generic Name Dose Route Start Last Admin Trade Name Freq PRN Reason Stop Dose Admin Acetaminophen 650 mg 11/07/23 11:39 Acetaminophen 650 Mg Suppository RECTAL Q6H PRN Mild Pain (1-3) or Fever Albuterol/Ipratropium 3 ml 11/07/23 16:17 Ipratropium 0.5 Mg/Albuterol Sulfate 2.5 Mg Ampul.Neb 3 Ml INHALATION Q6HRT PRN Shortness Of Breath Or Wheezing Aspirin 81 mg 11/08/23 09:00 11/14/23 10:20 Aspirin 81 Mg Enteric Tablet PO 81 mg QAM MIRNA Administration Atorvastatin Calcium 20 mg 11/08/23 09:00 11/14/23 10:21 Atorvastatin 20 Mg Tablet PO 20 mg DAILY MIRNA Administration Benzocaine 1 lozenge 11/07/23 16:17 Benzocaine/Menthol (*Bkc) 18 Ea Lozenge PO PRN PRN Sore Throat Bisacodyl 10 mg 11/07/23 13:21 Bisacodyl 10 Mg Suppository RECTAL DAILY PRN Constipation Cyanocobalamin 1,000 mcg 11/08/23 09:00 11/14/23 10:20 Cya
[2023-11-14 14:00] VITALS: BP 135/67; PULSE 55; RESP 20; TEMP 36.3; O2SAT 98
--- NOTE | 2023-11-14 14:35 | WPDANESPN ---
Anes - Prog Note Post-Op Date/Time: 11/14/23 14:35 Cardiovascular status: normal Respiratory status: normal Airway patency: baseline Mental status: baseline Post-Op hydration status: normal Vital Signs: Last Vital Signs Temp 36.3 C L 11/14/23 14:00 Pulse 55 L 11/14/23 14:00 Resp 20 11/14/23 14:00 BP 135/67 11/14/23 14:00 Pulse Ox 98 11/14/23 14:00 O2 Del Method Room Air 11/13/23 20:00 O2 Flow Rate 2 11/10/23 14:00 FiO2 21 11/11/23 09:33 Pain Score (VAS): 06/08 I/O: Intake & Output 11/13/23 11/14/23 11/14/23 23:59 07:59 15:59 Intake Total 1600 560 Output Total 500 400 Balance 1100 160 Laboratory Tests 11/14/23 05:40 11/14/23 05:40 11/13/23 11/13/23 11/14/23 18:18 23:48 05:40 WBC 5.3 RBC 3.87 L Hgb 11.2 L Hct 33.8 L MCV 87.3 MCH 28.9 MCHC 33.1 RDW 13.6 Plt Count 261 MPV 9.6 Immature Gran % (Auto) 0.6 H Neut % (Auto) 71.7 Lymph % (Auto) 15.1 L Valencia % (Auto) 9.2 H Eos % (Auto) 2.8 Baso % (Auto) 0.6 Lymph # (Auto) 0.80 L Valencia # (Auto) 0.5 Eos # (Auto) 0.2 Baso # (Auto) 0.0 Abs Immat Gran (auto) 0.03 Absolute Neuts (auto) 3.8 Absolute Nucleated RBC 0.000 Nucleated RBC % 0.0 Sodium 137 Potassium 3.4 Chloride 104 Carbon Dioxide 26 Anion Gap 7 BUN 14 Creatinine 1.00 Estim Creat Clear Calc 56 Estimated GFR > 60 Glucose 132 H POC Capillary Glucose 71 103 Calcium 8.3 L Total Bilirubin 1.0 AST 278 H ALT 267 H Alkaline Phosphatase 226 H Total Protein 6.0 L Albumin 2.6 L 11/14/23 11:41 WBC RBC Hgb Hct MCV MCH MCHC RDW Plt Count MPV Immature Gran % (Auto) Neut % (Auto) Lymph % (Auto) Valencia % (Auto) Eos % (Auto) Baso % (Auto) Lymph # (Auto) Valencia # (Auto) Eos # (Auto) Baso # (Auto) Abs Immat Gran (auto) Absolute Neuts (auto) Absolute Nucleated RBC Nucleated RBC % Sodium Potassium Chloride Carbon Dioxide Anion Gap BUN Creatinine Estim Creat Clear Calc Estimated GFR Glucose POC Capillary Glucose 121 H Calcium Total Bilirubin AST ALT Alkaline Phosphatase Total Protein Albumin Post-procedural complaints: none Patient Feedback: Patient satisfied with anesthetic care.
--- NOTE | 2023-11-14 16:28 | P.DS_ITS ---
DS: Admitting Diagnosis Discharge Date 11/14/23 Admitting Diagnosis Altered Mental Status DS: Discharge Diagnosis Discharge Diagnosis (1) Dysphagia: Code(s): R13.10 - Dysphagia, unspecified Status: Acute Assessment and Plan: MBS: 11/10; IMPRESSION: Pharyngeal dysphagia with multiple episodes of laryngeal penetration and aspiration. Please correlate with speech pathologist findings and specific feeding recommendations. - Scheduled for PEG-Tube placement later today. - Maintain NPO status. (2) AMS (altered mental status): Qualifiers: Altered mental status type: unspecified Qualified Code(s): R41.82 - Altered mental status, unspecified Code(s): R41.82 - Altered mental status, unspecified Status: Acute Assessment and Plan: 11/08/23: * CTA the head neck showed age-related changes, 0% stenosis to bilateral internal carotid arteries * Continue neuro checks * Suspect metabolic encephalopathy secondary to UTI/pneumonia 11/09/23: * Continue neuro checks * Continue and NPO status 11/11/23: Patient appears to be at baseline nonverbal status. 11/12/23: * No change in his overall mental status. 11/13/23: - Appears to be at baseline mentation. - Continue to monitor for acute neuro changes. 11/14/23: - PEG-Tube placed yesterday and patient tolerating TF well. (3) Pneumonia: Qualifiers: Laterality: bilateral Lung location: unspecified part of lung Pneumonia type: due to unspecified organism Qualified Code(s): J18.9 - Pneumonia, unspecified organism Code(s): J18.9 - Pneumonia, unspecified organism Status: Acute Assessment and Plan: 11/08/23: * Chest x-ray showing pneumonia * Patient started on Rocephin and azithromycin * MRSA negative * Viral PCR COVID positive however it was also positive on 10/24 * Sputum culture pending * Continue neb treatments * Currently on 3 L nasal cannula, continue to wean O2 for oxygen saturation greater than 92% * White blood cell count down to 15.8 today * Patient not awake enough to clear secretions, NT placed for suctioning as needed * May require transfer to IMU for closer monitoring * Will give 20 mg of IV Lasix now 11/09/23: * White blood cell count down to 12.3 * Sputum culture negative * Blood culture showing no growth on preliminary read * Continue Rocephin and azithromycin IV 11/09- wbc-9.5 continue to monitor 11/11/23: * Patient's respiratory status is stable overall. * WBCs have decreased today to 8.4. * Continue Rocephin and azithromycin at this time. * Recheck COVID test today. * Sputum culture negative. * Very blood cultures still without any growth. * Continue to monitor and trend patient's vital signs and labs. * Patient with difficulty swallowing pills crushed in applesauce this morning noted per nurse. Formal swallow evaluation with speech is ordered. 11/12/23: * Pt failed swallow eval and barium swallow. He must remain NPO * Continue IVF * Continue IV Ceftriaxone as he cannot have any oral. * I discussed with family including HARSHAD Enriquez who is his sister and also spoke with one of his sons regarding Feeding tube vs Hospice. They have asked for more time to think and process the situation. * 11/13/23: Patient currently on Ceftriaxone and we'll continue due to NPO status. - Consider PO abx after PEG-tube placement. 11/14/23: - Antibiotics therapy completed. - Blood cultures negative. (4) Acute UTI: Code(s): N39.0 - Urinary tract infection, site not s
--- NOTE | 2023-11-14 16:28 | PM.DS ---
DS: Admitting Diagnosis Discharge Date 11/14/23 Admitting Diagnosis Altered Mental Status DS: Discharge Diagnosis Discharge Diagnosis (1) Dysphagia: Code(s): R13.10 - Dysphagia, unspecified Status: Acute Assessment and Plan: MBS: 11/10; IMPRESSION: Pharyngeal dysphagia with multiple episodes of laryngeal penetration and aspiration. Please correlate with speech pathologist findings and specific feeding recommendations. - Scheduled for PEG-Tube placement later today. - Maintain NPO status. (2) AMS (altered mental status): Qualifiers: Altered mental status type: unspecified Qualified Code(s): R41.82 - Altered mental status, unspecified Code(s): R41.82 - Altered mental status, unspecified Status: Acute Assessment and Plan: 11/08/23: CTA the head neck showed age-related changes, 0% stenosis to bilateral internal carotid arteries Continue neuro checks Suspect metabolic encephalopathy secondary to UTI/pneumonia 11/09/23: Continue neuro checks Continue and NPO status 11/11/23: Patient appears to be at baseline nonverbal status. 11/12/23: No change in his overall mental status. 11/13/23: - Appears to be at baseline mentation. - Continue to monitor for acute neuro changes. 11/14/23: - PEG-Tube placed yesterday and patient tolerating TF well. (3) Pneumonia: Qualifiers: Laterality: bilateral Lung location: unspecified part of lung Pneumonia type: due to unspecified organism Qualified Code(s): J18.9 - Pneumonia, unspecified organism Code(s): J18.9 - Pneumonia, unspecified organism Status: Acute Assessment and Plan: 11/08/23: Chest x-ray showing pneumonia Patient started on Rocephin and azithromycin MRSA negative Viral PCR COVID positive however it was also positive on 10/24 Sputum culture pending Continue neb treatments Currently on 3 L nasal cannula, continue to wean O2 for oxygen saturation greater than 92% White blood cell count down to 15.8 today Patient not awake enough to clear secretions, NT placed for suctioning as needed May require transfer to IMU for closer monitoring Will give 20 mg of IV Lasix now 11/09/23: White blood cell count down to 12.3 Sputum culture negative Blood culture showing no growth on preliminary read Continue Rocephin and azithromycin IV 11/09- wbc-9.5 continue to monitor 11/11/23: Patient's respiratory status is stable overall. WBCs have decreased today to 8.4. Continue Rocephin and azithromycin at this time. Recheck COVID test today. Sputum culture negative. Very blood cultures still without any growth. Continue to monitor and trend patient's vital signs and labs. Patient with difficulty swallowing pills crushed in applesauce this morning noted per nurse. Formal swallow evaluation with speech is ordered. 11/12/23: Pt failed swallow eval and barium swallow. He must remain NPO Continue IVF Continue IV Ceftriaxone as he cannot have any oral. I discussed with family including HARSHAD Enriquez who is his sister and also spoke with one of his sons regarding Feeding tube vs Hospice. They have asked for more time to think and process the situation. 11/13/23: Patient currently on Ceftriaxone and we'll continue due to NPO status. - Consider PO abx after PEG-tube placement. 11/14/23: - Antibiotics therapy completed. - Blood cultures negative. (4) Acute UTI: Code(s): N39.0 - Urinary tract infection, site not specified Status: Acute Assessment and Plan: 11/08/23: UA showing 1+ leukocyte, 21-50 WBC, 4+ bacteria Urine culture obtained and are pending Continue Rocephin 11/09/23: Urine culture showing E coli on final read which is rodriguez sensitive Altered mental status, we will continue with IV Rocephin for now 11/11/23: Continue antibiotics of Rocephin for E coli urinary tract infections that is pansensitive. Not meeting sepsis criteria. 11/12/23: Tomorr
== END 2023-11-14 16:14 | DRG 177 ==
LOC: ANHED 08:55 → ANH3MEDSUR 12:29
PROVIDERS: Internal Medicine Gastroenterology; Nurse Practitioner Acute Care; Nurse Practitioner Adult Health; Student in an Organized Health Care Education/Training Program; Admitting Provider Internal Medicine; Emergency Provider Emergency Medicine; PCP Nurse Practitioner; Visit Provider Nurse Practitioner Adult Health
PROC: 0DH63UZ Insertion of Feeding Device into Stomach, Percutaneous Approach (ICD-10-PCS; CPT 43246; principal; 2023-11-13 15:30)
DX: J69.0 Pneumonitis due to inhalation of food and vomit (principal); G93.41 Metabolic encephalopathy; N17.9 Acute kidney failure, unspecified; N39.0 Urinary tract infection, site not specified; E46 Unspecified protein-calorie malnutrition; I12.9 Hypertensive chronic kidney disease with stage 1 through stage 4 chronic kidney disease, or unspecified chronic kidney disease; N18.30 Chronic kidney disease, stage 3 unspecified; B96.20 Unspecified Escherichia coli [E. coli] as the cause of diseases classified elsewhere; I73.9 Peripheral vascular disease, unspecified; R13.10 Dysphagia, unspecified; H40.1130 Primary open-angle glaucoma, bilateral, stage unspecified; F03.90 Unspecified dementia, unspecified severity, without behavioral disturbance, psychotic disturbance, mood disturbance, and anxiety; I25.2 Old myocardial infarction; Z80.0 Family history of malignant neoplasm of digestive organs; Z87.891 Personal history of nicotine dependence; Z79.82 Long term (current) use of aspirin; Z86.16 Personal history of COVID-19; Z68.20 Body mass index [BMI] 20.0-20.9, adult
CPT/HCPCS: 36415; 36600; 43246; 70496; 70498; 71045; 80053; 81001; 82140; 82805; 82948; 83605; 84145; 84443; 85025; 85610; 85730; 87040; 87070; 87077; 87086; 87088; 87186; 87205; 87635; 87637; 87641; 92610; 92611; 93005; 96365; 96366; 96367; 99285; A9270; G0378; J0456; J0696; J1650; J1940; J2001; J2310; J2704; J7030; J7042; J7120; Q9967

== ENCOUNTER 2023-11-20 21:44 | Emergency (ER) | payer MEDICARE, SELFPAY ==
--- NOTE | ~2023-11-20 | XR_ITS ---
EXAMINATION: XR abdomen gastric tube insert DATE: 11/20/2023 22:46 INDICATION: Status post G-tube replacement TECHNIQUE: A supine view of the abdomen and lower chest was obtained for evaluation of as gastrostom y tube placement following administration of 60 mL Gastrografin oral contrast material. COMPARISON: None. FINDINGS: There is contrast within the stomach which surrounds the present study is gastrostomy tube bulb or di stal body the stomach. The contrast extends through the duodenum into the proximal jejunum which demo nstrate a normal mucosal fold pattern. Large amount of colonic stool in the right abdomen and pelvis. No dilated loops of small bowel to suggest obstruction. Heart size is normal. IMPRESSION: 1. Percutaneous gastrostomy tube bulb in the distal body of the stomach. Reviewed, dictated and finalized at location A.
[2023-11-20 21:46] VITALS: BP 145/87; PULSE 84; RESP 19; TEMP 36.8; O2SAT 98
[2023-11-20 21:50] VITALS: O2SAT 96
[2023-11-20 21:52] VITALS: PULSE 84
--- NOTE | 2023-11-20 21:59 | PC.NURSE ---
Patient presents to the ED via EMS c/o Pulled out Gtube Patient deniespain at this time. Patient is A&OX1-2 baseline.
[2023-11-20 22:16] VITALS: BP 122/83
[2023-11-20 22:31] VITALS: BP 136/87
--- NOTE | 2023-11-20 22:33 | PC.NURSE ---
ERP inserted 20 fr (20 mL) G tube at bedside. Patient tolerated well.
--- NOTE | 2023-11-20 23:10 | ED.GENADULT ---
HPI - General Adult General Chief complaint: Unspecified Stated complaint: DISLODGED G-TUBE Time Seen by Provider: 11/20/23 21:58 History of Present Illness HPI narrative: Patient 78-year-old gentleman who presents emergency department with chief complaint of pulled G-tube out. Patient had a recently placed G-tube is a resident of a local nursing facility and apparently got agitated when they were standing up and managed to pull out his G-tube. The patient has no other injuries no other complaints Related Data Home Medications Medication Instructions Recorded Confirmed cyanocobalamin (vitamin B-12) 1,000 mcg PO DAILY 04/03/21 11/07/23 1,000 mcg tablet memantine 10 mg tablet 10 mg PO DAILY 04/03/21 11/07/23 aspirin 81 mg tablet,delayed 81 mg PO DAILY 06/14/22 11/07/23 release (Adult Aspirin Regimen) cetirizine 10 mg tablet 10 mg PO DAILY PRN Congestion 06/14/22 11/07/23 thiamine HCl (vitamin B1) 250 mg 250 mg PO DAILY 03/28/23 11/07/23 tablet betaxolol 0.5 % eye drops 1 drp EACH EYE BID 11/07/23 11/07/23 bisacodyl 10 mg rectal suppository 10 mg RECTAL DAILY PRN Constipation 11/07/23 11/07/23 magnesium citrate (Citroma oral 300 ml PO DAILY PRN Constipation 11/07/23 11/07/23 solution) magnesium hydroxide 400 mg/5 mL 30 ml PO DAILY PRN Constipation 11/07/23 11/07/23 oral suspension (Milk of Magnesia) sodium phosphates 19 gram-7 118 ml RECTAL ONCE PRN Constipation 11/07/23 11/07/23 gram/118 mL enema (Fleet Enema) tamsulosin 0.4 mg capsule 0.4 mg PO DAILY 11/07/23 11/07/23 Allergies Allergy/AdvReac Type Severity Reaction Status Date / Time No Known Allergies Allergy Unknown Verified 11/07/23 09:28 Review of Systems Review of Systems: A 10 system review of systems was completed on the patient and is negative except for what is stated in the HPI. Nursing and ancillary documentation was reviewed. [facility] Past Medical History Medical History Acute non-ST elevation myocardial infarction (NSTEMI) (03/2023) Chronic kidney disease, stage 3 (moderate) Colon cancer screening Elevated prostate specific antigen [PSA] Erectile dysfunction Essential (primary) hypertension Malnutrition Primary open-angle glaucoma, bilateral, stage unspecified PVD (peripheral vascular disease) Unspecified iridocyclitis Family History Family History Father Carcinoma of colon Patient's father is Family history of malignant neoplasm Mother Patient's mother is Family history unknown Social History Social History Smoking packs per day: 0.5 Smoking cigarettes per day: 10.0 Years smoked: 60 Smoking pack-years: 30.00 Smoking status: Former smoker Alcohol intake: former Alcohol use details: social Substance use: never Substance use type: does not use Lack of Transportation: YES Lack of Food: Never True Current Housing: I Have Housing Concerned About Future Housing: No Difficulty Paying Gas/Electric Bills: No Difficulty Paying for Meds: No Currently Unemployed: No Education: High School Diploma/GED Difficulty w/ Childcare or Family Care: No Living arrangements: with family Spiritual care concerns: No Exam Narrative: GENERAL: Well-appearing, well-nourished, and in no acute distress. HEAD: Normocephalic, atraumatic. EYES: PERRLA and EOMI. ENT: Nares clear, no rhinorrhea or epistaxis. Mucous membranes moist. NECK: Supple. CHEST: Clear to auscultation. No respiratory distress. HEART: Regular rate and rhythm. No murmur heard. Normal peripheral pulses. ABDOMEN: Soft, nontender, nondistended, normal active bowel sounds. there is E site where the G-tube was in place no active bleeding EXTREMITIES: Normal range of motion. No edema. SKIN: Warm, dry, no rash.
== END 2023-11-20 23:49 ==
PROVIDERS: Emergency Provider Emergency Medicine; PCP Family Medicine
DX: K94.23 Gastrostomy malfunction (principal); I12.9 Hypertensive chronic kidney disease with stage 1 through stage 4 chronic kidney disease, or unspecified chronic kidney disease; N18.30 Chronic kidney disease, stage 3 unspecified; Z87.891 Personal history of nicotine dependence
CPT/HCPCS: 43762; 99283

== ENCOUNTER 2023-11-22 18:23 | Emergency (ER) | payer MEDICARE, SELFPAY ==
--- NOTE | ~2023-11-22 | XR_ITS ---
XR abdomen gastric tube insert Ordering provider: Lucian Francis MD History: . s/p g tube replacement . Comparison: None. FINDINGS: BOWEL: Gastrostomy tube is noted in the stomach. No evidence of leak is noted. Contrast seen in the l arge bowel. Most likely due to previous study. Nonobstructive bowel gas pattern. ORGANOMEGALY: None. SIGNIFICANT PATHOLOGIC CALCIFICATIONS: None. OTHER: No free air is seen under the diaphragm. IMPRESSION: NO ACUTE ABDOMINAL FINDINGS. Gastrostomy tube seen inside the stomach with no definite leakage. Reviewed, dictated and finalized at location A.
[2023-11-22 18:27] VITALS: BP 106/65; PULSE 80; RESP 16; TEMP 36.8; O2SAT 100
[2023-11-22 23:02] VITALS: RESP 17
--- NOTE | 2023-11-22 23:11 | ED.GENADULT ---
HPI - General Adult General Chief complaint: Recheck/Abnormal Lab/Rx Stated complaint: g-tube pulled out Time Seen by Provider: 11/22/23 22:06 History of Present Illness HPI narrative: patient is a 78-year-old gentleman who presents emergency department with chief complaint of pulled G-tube out the patient is resident of a local nursing facility and they stated the patient managed to get a hold of his G-tube been pulled out Related Data Home Medications Medication Instructions Recorded Confirmed cyanocobalamin (vitamin B-12) 1,000 mcg PO DAILY 04/03/21 11/07/23 1,000 mcg tablet memantine 10 mg tablet 10 mg PO DAILY 04/03/21 11/07/23 aspirin 81 mg tablet,delayed 81 mg PO DAILY 06/14/22 11/07/23 release (Adult Aspirin Regimen) cetirizine 10 mg tablet 10 mg PO DAILY PRN Congestion 06/14/22 11/07/23 thiamine HCl (vitamin B1) 250 mg 250 mg PO DAILY 03/28/23 11/07/23 tablet betaxolol 0.5 % eye drops 1 drp EACH EYE BID 11/07/23 11/07/23 bisacodyl 10 mg rectal suppository 10 mg RECTAL DAILY PRN Constipation 11/07/23 11/07/23 magnesium citrate (Citroma oral 300 ml PO DAILY PRN Constipation 11/07/23 11/07/23 solution) magnesium hydroxide 400 mg/5 mL 30 ml PO DAILY PRN Constipation 11/07/23 11/07/23 oral suspension (Milk of Magnesia) sodium phosphates 19 gram-7 118 ml RECTAL ONCE PRN Constipation 11/07/23 11/07/23 gram/118 mL enema (Fleet Enema) tamsulosin 0.4 mg capsule 0.4 mg PO DAILY 11/07/23 11/07/23 Allergies Allergy/AdvReac Type Severity Reaction Status Date / Time No Known Allergies Allergy Unknown Verified 11/07/23 09:28 Review of Systems Review of Systems: A 10 system review of systems was completed on the patient and is negative except for what is stated in the HPI. Nursing and ancillary documentation was reviewed. [facility] Past Medical History Medical History Acute non-ST elevation myocardial infarction (NSTEMI) (03/2023) Chronic kidney disease, stage 3 (moderate) Colon cancer screening Elevated prostate specific antigen [PSA] Erectile dysfunction Essential (primary) hypertension Malnutrition Primary open-angle glaucoma, bilateral, stage unspecified PVD (peripheral vascular disease) Unspecified iridocyclitis Family History Family History Father Carcinoma of colon Patient's father is Family history of malignant neoplasm Mother Patient's mother is Family history unknown Social History Social History Smoking packs per day: 0.5 Smoking cigarettes per day: 10.0 Years smoked: 60 Smoking pack-years: 30.00 Smoking status: Former smoker Alcohol intake: former Alcohol use details: social Substance use: never Substance use type: does not use Lack of Transportation: YES Lack of Food: Never True Current Housing: I Have Housing Concerned About Future Housing: No Difficulty Paying Gas/Electric Bills: No Difficulty Paying for Meds: No Currently Unemployed: No Education: High School Diploma/GED Difficulty w/ Childcare or Family Care: No Living arrangements: with family Spiritual care concerns: No Exam Narrative: GENERAL: Well-appearing, well-nourished, and in no acute distress. HEAD: Normocephalic, atraumatic. EYES: PERRLA and EOMI. ENT: Nares clear, no rhinorrhea or epistaxis. Mucous membranes moist. NECK: Supple. CHEST: Clear to auscultation. No respiratory distress. HEART: Regular rate and rhythm. No murmur heard. Normal peripheral pulses. ABDOMEN: Soft, nontender, nondistended, normal active bowel sounds. G-tube site present in the left quadrants of the abdomen EXTREMITIES: Normal range of motion. No edema. SKIN: Warm, dry, no rash. NEURO: No focal deficits. Alert and pleasantly confused. PSYCH: Normal mood and affe
[2023-11-22 23:41] VITALS: BP 144/84; PULSE 76; RESP 16; TEMP 36.8; O2SAT 98
--- NOTE | 2023-11-22 23:41 | PC.NURSE ---
report called to TAPAN Farrar @ [facility] [phone]
== END 2023-11-23 01:12 ==
PROVIDERS: Emergency Provider Emergency Medicine; PCP Family Medicine
DX: K94.20 Gastrostomy complication, unspecified (principal); I12.9 Hypertensive chronic kidney disease with stage 1 through stage 4 chronic kidney disease, or unspecified chronic kidney disease; N18.30 Chronic kidney disease, stage 3 unspecified; I25.2 Old myocardial infarction
CPT/HCPCS: 43762; 99283

== ENCOUNTER 2023-11-26 22:16 | Emergency (ER) | payer MEDICARE, SELFPAY ==
--- NOTE | ~2023-11-26 | XR_ITS ---
Supine and upright views of the abdomen Clinical history: G-tube placed Findings: Percutaneous gastrostomy tube present, with contrast through the G-tube opacifying the tamara freida fundus. No abnormal extravasation of contrast seen. Bowel gas pattern is nonspecific. No evidence for obstruction or free air. No abnormal mass lesion or calcification is seen. Osseous structures ar e intact. Impression: Percutaneous gastrostomy tube in satisfactory position. Reviewed, dictated and finalized at location M. Impression: Percutaneous gastrostomy tube in satisfactory position.
[2023-11-26 22:18] VITALS: BP 106/76; PULSE 74; RESP 17; TEMP 37.1; O2SAT 98
[2023-11-26 22:35] VITALS: BP 112/72; PULSE 70; O2SAT 98
--- NOTE | 2023-11-27 00:14 | ED.GENADULT ---
HPI - General Adult General Chief complaint: Unspecified Stated complaint: pulled out g-tube Time Seen by Provider: 11/26/23 22:58 Source: patient Mode of arrival: EMS Limitations: clinical condition and dementia History of Present Illness HPI narrative: Patient is a 78-year-old male, with pmh of cva, dementia, G-tube, who presents the ED via EMS with report of dislodged G-tube. patient is a resident of [facility]. Per alf report, they were performing rounds when they noticed that patient's G-tube had been dislodged. Sent here for further evaluation. Patient unable to tell me home this occurred. Related Data Home Medications Medication Instructions Recorded Confirmed cyanocobalamin (vitamin B-12) 1,000 mcg PO DAILY 04/03/21 11/07/23 1,000 mcg tablet memantine 10 mg tablet 10 mg PO DAILY 04/03/21 11/07/23 aspirin 81 mg tablet,delayed 81 mg PO DAILY 06/14/22 11/07/23 release (Adult Aspirin Regimen) cetirizine 10 mg tablet 10 mg PO DAILY PRN Congestion 06/14/22 11/07/23 thiamine HCl (vitamin B1) 250 mg 250 mg PO DAILY 03/28/23 11/07/23 tablet betaxolol 0.5 % eye drops 1 drp EACH EYE BID 11/07/23 11/07/23 bisacodyl 10 mg rectal suppository 10 mg RECTAL DAILY PRN Constipation 11/07/23 11/07/23 magnesium citrate (Citroma oral 300 ml PO DAILY PRN Constipation 11/07/23 11/07/23 solution) magnesium hydroxide 400 mg/5 mL 30 ml PO DAILY PRN Constipation 11/07/23 11/07/23 oral suspension (Milk of Magnesia) sodium phosphates 19 gram-7 118 ml RECTAL ONCE PRN Constipation 11/07/23 11/07/23 gram/118 mL enema (Fleet Enema) tamsulosin 0.4 mg capsule 0.4 mg PO DAILY 11/07/23 11/07/23 Allergies Allergy/AdvReac Type Severity Reaction Status Date / Time No Known Allergies Allergy Unknown Verified 11/26/23 22:22 Review of Systems Review of Systems: ROS unobtainable: Yes unobtainable due to medical condition PMFSH Past Medical History Medical History Acute non-ST elevation myocardial infarction (NSTEMI) (03/2023) Chronic kidney disease, stage 3 (moderate) Colon cancer screening Elevated prostate specific antigen [PSA] Erectile dysfunction Essential (primary) hypertension Malnutrition Primary open-angle glaucoma, bilateral, stage unspecified PVD (peripheral vascular disease) Unspecified iridocyclitis Family History Family History Father Carcinoma of colon Patient's father is Family history of malignant neoplasm Mother Patient's mother is Family history unknown Social History Social History Smoking packs per day: 0.5 Smoking cigarettes per day: 10.0 Years smoked: 60 Smoking pack-years: 30.00 Smoking status: Former smoker Alcohol intake: former Alcohol use details: social Substance use: never Substance use type: does not use Lack of Transportation: YES Lack of Food: Never True Current Housing: I Have Housing Concerned About Future Housing: No Difficulty Paying Gas/Electric Bills: No Difficulty Paying for Meds: No Currently Unemployed: No Education: High School Diploma/GED Difficulty w/ Childcare or Family Care: No Living arrangements: with family Spiritual care concerns: No Exam Narrative: GENERAL: Elderly, frail, thin, sleeping on ED stretcher HEAD: Normocephalic, atraumatic. RESPIRATORY: Airway patent, respirations nonlabored. CARDIOVASCULAR: Regular rate and rhythm ABDOMINAL: Soft, no appreciable tenderness, nondistended. G-tube stoma in LUQ with minimal surrounding erythema, no drainage. MUSCULOSKELETAL: No gross deformities. SKIN: Warm, dry, normal color. NEURO: Alert, responds to voice, aphasic. No ataxic movements. PSYCHIATRIC: Follows some commands but does not speak per baseline. Course Vital Signs
== END 2023-11-27 02:10 ==
PROVIDERS: Emergency Provider Physician Assistant; PCP Family Medicine
DX: Z43.1 Encounter for attention to gastrostomy (principal); I25.2 Old myocardial infarction; I12.9 Hypertensive chronic kidney disease with stage 1 through stage 4 chronic kidney disease, or unspecified chronic kidney disease; N18.30 Chronic kidney disease, stage 3 unspecified; H40.1130 Primary open-angle glaucoma, bilateral, stage unspecified; I73.9 Peripheral vascular disease, unspecified; Z87.891 Personal history of nicotine dependence
CPT/HCPCS: 43762; 99283

== ENCOUNTER 2023-11-27 17:11 | Emergency (ER) | payer MEDICARE, MEDICAID, SELFPAY ==
--- NOTE | ~2023-11-27 | XR_ITS ---
EXAMINATION: XR abdomen gastric tube insert DATE: 11/27/2023 17:42 INDICATION: Gastrostomy tube replacement. TECHNIQUE: A supine view of the abdomen was obtained. COMPARISON: Abdomen radiograph at 12:08 AM. FINDINGS: There are no dilated loops of bowel. There is oral contrast throughout the stomach, small b owel, and colon. A gastrostomy tube overlies the stomach. IMPRESSION: 1. Gastrostomy tube overlying the stomach. Reviewed, dictated and finalized at location A.
[2023-11-27 17:23] VITALS: TEMP 36.6
--- NOTE | 2023-11-27 17:24 | ED.GENADULT ---
HPI - General Adult General Stated complaint: pulled g-tube Time Seen by Provider: 11/27/23 17:13 History of Present Illness HPI narrative: Patient is a 78-year-old male with history of CVA and dementia who presents ER with a dislodged gastrostomy tube. He receives continuous feeding. He has an abdominal binder. Patient unable to provide history. Related Data Home Medications Medication Instructions Recorded Confirmed cyanocobalamin (vitamin B-12) 1,000 mcg PO DAILY 04/03/21 11/07/23 1,000 mcg tablet memantine 10 mg tablet 10 mg PO DAILY 04/03/21 11/07/23 aspirin 81 mg tablet,delayed 81 mg PO DAILY 06/14/22 11/07/23 release (Adult Aspirin Regimen) cetirizine 10 mg tablet 10 mg PO DAILY PRN Congestion 06/14/22 11/07/23 thiamine HCl (vitamin B1) 250 mg 250 mg PO DAILY 03/28/23 11/07/23 tablet betaxolol 0.5 % eye drops 1 drp EACH EYE BID 11/07/23 11/07/23 bisacodyl 10 mg rectal suppository 10 mg RECTAL DAILY PRN Constipation 11/07/23 11/07/23 magnesium citrate (Citroma oral 300 ml PO DAILY PRN Constipation 11/07/23 11/07/23 solution) magnesium hydroxide 400 mg/5 mL 30 ml PO DAILY PRN Constipation 11/07/23 11/07/23 oral suspension (Milk of Magnesia) sodium phosphates 19 gram-7 118 ml RECTAL ONCE PRN Constipation 11/07/23 11/07/23 gram/118 mL enema (Fleet Enema) tamsulosin 0.4 mg capsule 0.4 mg PO DAILY 11/07/23 11/07/23 Allergies Allergy/AdvReac Type Severity Reaction Status Date / Time No Known Allergies Allergy Unknown Verified 11/26/23 22:22 Review of Systems Review of Systems: ROS unobtainable: Yes unobtainable due to mental status PMFSH Past Medical History Medical History Acute non-ST elevation myocardial infarction (NSTEMI) (03/2023) Chronic kidney disease, stage 3 (moderate) Colon cancer screening Elevated prostate specific antigen [PSA] Erectile dysfunction Essential (primary) hypertension Malnutrition Primary open-angle glaucoma, bilateral, stage unspecified PVD (peripheral vascular disease) Unspecified iridocyclitis Family History Family History Father Carcinoma of colon Patient's father is Family history of malignant neoplasm Mother Patient's mother is Family history unknown Social History Social History Smoking packs per day: 0.5 Smoking cigarettes per day: 10.0 Years smoked: 60 Smoking pack-years: 30.00 Smoking status: Former smoker Alcohol intake: former Alcohol use details: social Substance use: never Substance use type: does not use Lack of Transportation: YES Lack of Food: Never True Current Housing: I Have Housing Concerned About Future Housing: No Difficulty Paying Gas/Electric Bills: No Difficulty Paying for Meds: No Currently Unemployed: No Education: High School Diploma/GED Difficulty w/ Childcare or Family Care: No Living arrangements: with family Spiritual care concerns: No Exam Narrative: GENERAL: Chronically ill-appearing, well-nourished, and in no acute distress. HEAD: Normocephalic, atraumatic. ENT: Mucous membranes moist. CHEST: Clear to auscultation. No respiratory distress. HEART: Regular rate and rhythm. Normal peripheral pulses. ABDOMEN: Soft, nontender, nondistended, normal appearing G-tube s NEURO: Awake alert, intermittently follows commands. Course Course Emergency Course: G-tube successfully replaced and confirmed with x-ray with Gastrografin. Abdominal binder placed over the G-tube. Vital Signs Vital signs: Vital Signs Temperature 97.9 F 11/27/23 17:23 Temperature 97.9 F 11/27/23 17:23 Procedures Feeding Tube Replacement Feeding Tube #1: Feeding Tube Placement Date: 11/27/23 Feeding Tube Placement Time: 17:20 Type o
--- NOTE | 2023-11-27 18:38 | PC.NURSE ---
182 called [facility] to transfer to [facility] 1.5 hrs
[2023-11-27 20:13] VITALS: BP 148/87; PULSE 87; RESP 19; TEMP 37.2; O2SAT 96
[2023-11-27 20:40] VITALS: TEMP 37.1
== END 2023-11-27 20:46 | disposition home or self-care (01) ==
PROVIDERS: Emergency Provider Emergency Medicine; PCP Family Medicine
DX: Z43.1 Encounter for attention to gastrostomy (principal); F03.90 Unspecified dementia, unspecified severity, without behavioral disturbance, psychotic disturbance, mood disturbance, and anxiety; I12.9 Hypertensive chronic kidney disease with stage 1 through stage 4 chronic kidney disease, or unspecified chronic kidney disease; N18.30 Chronic kidney disease, stage 3 unspecified; I73.9 Peripheral vascular disease, unspecified; H40.1130 Primary open-angle glaucoma, bilateral, stage unspecified; Z86.73 Personal history of transient ischemic attack (TIA), and cerebral infarction without residual deficits; Z87.891 Personal history of nicotine dependence
CPT/HCPCS: 43762; 99283

== ENCOUNTER 2024-01-15 07:04 | Day surgery (SDC) | payer MEDICARE, MEDICAID, SELFPAY ==
[2024-01-15] VITALS (12 sets, daily range): BP systolic 102–135; BP diastolic 68–90; PULSE 70–90; RESP 14–24; TEMP 36.4–36.5; O2SAT 90–100
--- NOTE | ~2024-01-15 | XR_ITS ---
EXAMINATION: XR abdomen gastric tube insert DATE: 01/15/2024 08:17 INDICATION: G-tube placement TECHNIQUE: A supine view of the abdomen and lower chest was obtained for evaluation of feeding tube placement. COMPARISON: 11/27/2023 FINDINGS: Contrast injected through the percutaneous gastrostomy tube opacifies the visualized portion of the l umen of the gastric body. No evident extraluminal contrast extravasation. Moderate amount of stool se en at the cecum. No dilated gas-filled loops of bowel to suggest obstruction. Calcified nodules at th e medial right lung base consistent with old granulomatous disease. Remainder of visualized lungs are clear. Heart size is normal. There are bridging osteophytes at multiple levels consistent with diffu se idiopathic skeletal hyperostosis (DISH). IMPRESSION: 1. Percutaneous gastrostomy tube with injected contrast in the body of the stomach. Reviewed, dictated and finalized at [facility]. IMPRESSION: 1. Percutaneous gastrostomy tube with injected contrast in the body of the stom ach.
--- NOTE | 2024-01-15 07:46 | ED.GENADULT ---
HPI - General Adult General Chief complaint: Unspecified Stated complaint: g-tube removed Time Seen by Provider: 01/15/24 07:06 History of Present Illness HPI narrative: patient is a 78-year-old male who presents ER after removing his G-tube. He receives continuous feeds. He has history of CVA and dementia. Unknown when he removed the feeding tube. It was a 16 Taiwanese size tube Related Data Home Medications Medication Instructions Recorded Confirmed cyanocobalamin (vitamin B-12) 1,000 mcg PO DAILY 04/03/21 11/07/23 1,000 mcg tablet memantine 10 mg tablet 10 mg PO DAILY 04/03/21 11/07/23 aspirin 81 mg tablet,delayed 81 mg PO DAILY 06/14/22 11/07/23 release (Adult Aspirin Regimen) cetirizine 10 mg tablet 10 mg PO DAILY PRN Congestion 06/14/22 11/07/23 thiamine HCl (vitamin B1) 250 mg 250 mg PO DAILY 03/28/23 11/07/23 tablet betaxolol 0.5 % eye drops 1 drp EACH EYE BID 11/07/23 11/07/23 bisacodyl 10 mg rectal suppository 10 mg RECTAL DAILY PRN Constipation 11/07/23 11/07/23 magnesium citrate (Citroma oral 300 ml PO DAILY PRN Constipation 11/07/23 11/07/23 solution) magnesium hydroxide 400 mg/5 mL 30 ml PO DAILY PRN Constipation 11/07/23 11/07/23 oral suspension (Milk of Magnesia) sodium phosphates 19 gram-7 118 ml RECTAL ONCE PRN Constipation 11/07/23 11/07/23 gram/118 mL enema (Fleet Enema) tamsulosin 0.4 mg capsule 0.4 mg PO DAILY 11/07/23 11/07/23 Allergies Allergy/AdvReac Type Severity Reaction Status Date / Time No Known Allergies Allergy Unknown Verified 01/15/24 07:11 Review of Systems Review of Systems: ROS unobtainable: Yes unobtainable due to medical condition PMFSH Past Medical History Medical History Acute non-ST elevation myocardial infarction (NSTEMI) (03/2023) Chronic kidney disease, stage 3 (moderate) Colon cancer screening Elevated prostate specific antigen [PSA] Erectile dysfunction Essential (primary) hypertension Malnutrition Primary open-angle glaucoma, bilateral, stage unspecified PVD (peripheral vascular disease) Unspecified iridocyclitis Family History Family History Father Carcinoma of colon Patient's father is Family history of malignant neoplasm Mother Patient's mother is Family history unknown Social History Social History Smoking packs per day: 0.5 Smoking cigarettes per day: 10.0 Years smoked: 60 Smoking pack-years: 30.00 Smoking status: Former smoker Alcohol intake: former Alcohol use details: social Substance use: never Substance use type: does not use Lack of Transportation: YES Lack of Food: Never True Current Housing: I Have Housing Concerned About Future Housing: No Difficulty Paying Gas/Electric Bills: No Difficulty Paying for Meds: No Currently Unemployed: No Education: High School Diploma/GED Difficulty w/ Childcare or Family Care: No Living arrangements: with family Spiritual care concerns: No Exam Narrative: GENERAL: Chronically ill-appearing, well-nourished, and in no acute distress. HEAD: Normocephalic, atraumatic. ENT: Mucous membranes moist. CHEST: Clear to auscultation. No respiratory distress. HEART: Regular rate and rhythm. Normal peripheral pulses. ABDOMEN: Soft, nontender, nondistended, dried g-tube site LUQ w/o drainage. EXTREMITIES: Normal range of motion. No edema. SKIN: Warm, dry, no rash. Course Course Emergency Course: G-tube replaced with 10 Taiwanese Woodson catheter. Had to be angled cephalad. Positioning confirm by x-ray. Vital Signs Vital signs: Vital Signs Temperature 97.6 F 01/15/24 07:05 Pulse Rate 78 01/15/24 07:05 Respiratory Rate 20 01/15/24 07:05 Blood Pressure 107/75 01/15/24 07:05 Pulse Oximetry 97 01/15/24 07:05 Ox
--- NOTE | 2024-01-15 11:44 | PC.NURSE ---
To GI lab via stretcher. Condition stable.
--- NOTE | 2024-01-15 12:01 | WPDANESEPPF ---
Anes - Initial Pre Proc Eval Procedure: Operation Date: 01/15/24 15:30 Proposed Procedures p Percutaneous Endoscopic Gastrostomy - Clovis Holland MD Date/Time: 01/15/24 12:01 Surgeon: Clovis Holland MD Pre Op Diagnosis: g-tube removed Patient Data Age: 78 Gender: M Height: 1.85 m Weight: 64.1 kg Last Vital Signs Temp 97.6 F 01/15/24 07:05 Pulse 90 01/15/24 08:55 Resp 16 01/15/24 08:55 BP 102/70 01/15/24 08:55 Pulse Ox 99 01/15/24 08:55 O2 Del Method Room Air 01/15/24 07:05 Allergies Allergy/AdvReac Type Severity Reaction Status Date / Time No Known Allergies Allergy Unknown Verified 01/15/24 11:55 Home Medications Medication Instructions Recorded Confirmed Type cyanocobalamin (vitamin B-12) 1,000 mcg PO DAILY 04/03/21 11/07/23 History 1,000 mcg tablet memantine 10 mg tablet 10 mg PO DAILY 04/03/21 11/07/23 History aspirin 81 mg tablet,delayed 81 mg PO DAILY 06/14/22 11/07/23 History release (Adult Aspirin Regimen) cetirizine 10 mg tablet 10 mg PO DAILY PRN Congestion 06/14/22 11/07/23 History ipratropium bromide 21 mcg (0.03 See Rx Instructions .Route 06/14/22 11/07/23 Rx %) nasal spray .COMPLEX #90 mL atorvastatin 20 mg tablet 20 mg PO DAILY #90 tabs 01/22/23 11/07/23 Rx thiamine HCl (vitamin B1) 250 mg 250 mg PO DAILY 03/28/23 11/07/23 History tablet betaxolol 0.5 % eye drops 1 drp EACH EYE BID 11/07/23 11/07/23 History bisacodyl 10 mg rectal suppository 10 mg RECTAL DAILY PRN Constipation 11/07/23 11/07/23 History magnesium citrate (Citroma oral 300 ml PO DAILY PRN Constipation 11/07/23 11/07/23 History solution) magnesium hydroxide 400 mg/5 mL 30 ml PO DAILY PRN Constipation 11/07/23 11/07/23 History oral suspension (Milk of Magnesia) sodium phosphates 19 gram-7 118 ml RECTAL ONCE PRN Constipation 11/07/23 11/07/23 History gram/118 mL enema (Fleet Enema) tamsulosin 0.4 mg capsule 0.4 mg PO DAILY 11/07/23 11/07/23 History docusate sodium 50 mg/5 mL oral 100 mg (10 mL) feeding tube Q12HR 11/14/23 Rx liquid #1,000 mL Patient hx anesthesia problems: none Family hx anesthesia problems: none Results Review: All pre-operative results and documents have been reviewed as part of the pre-operative evaluation. [facility] Past Medical History Medical History Acute non-ST elevation myocardial infarction (NSTEMI) (03/2023) Chronic kidney disease, stage 3 (moderate) Colon cancer screening Elevated prostate specific antigen [PSA] Erectile dysfunction Essential (primary) hypertension Malnutrition Primary open-angle glaucoma, bilateral, stage unspecified PVD (peripheral vascular disease) Unspecified iridocyclitis Family History Family History Father Carcinoma of colon Patient's father is Family history of malignant neoplasm Mother Patient's mother is Family history unknown Social History Social History Smoking packs per day: 0.5 Smoking cigarettes per day: 10.0 Years smoked: 60 Smoking pack-years: 30.00 Smoking status: Former smoker Alcohol intake: former Alcohol use details: social Substance use: never Substance use type: does not use Lack of Transportation: YES Lack of Food: Never True Current Housing: I Have Housing Concerned About Future Housing: No Difficulty Paying Gas/Electric Bills: No Difficulty Paying for Meds: No Currently Unemployed: No Education: High School Diploma/GED Difficulty w/ Childcare or Family Care: No Living arrangements: with family Spiritual care concerns: No Anes - Eval Final PreProcedure Day of Procedure 01/15/24 12:01 Patient weight: normal Heart: regular rate and rhythm Lungs: clear to auscultation Airway: Mallampati scal
--- NOTE | 2024-01-15 12:01 | SUR.PREOP ---
Unable to verify health history or medications. Patient A&O x 0.
[2024-01-15] MEDS: LACTATED RINGERS 1,000 ML 150 ML IV CONT (12:05)
--- NOTE | 2024-01-15 12:22 | PM.HPGS ---
History of Present Illness History of Present Illness Consent: Risks, benefits, and alternatives have been discussed and questions answered. Patient agrees to proceed with procedure. Chief complaint: g-tube removed Narrative: Ulysses Lane is a 78 year old male with dementia and dysphagia, had G-tube placed 10/2023 and he pulled it out, he was brought to ER and right now has [address] instead Review of Systems Review of Systems: All systems reviewed & are unremarkable except as noted in HPI and below PMFSH Past Medical History Medical History Acute non-ST elevation myocardial infarction (NSTEMI) (03/2023) Chronic kidney disease, stage 3 (moderate) Colon cancer screening Elevated prostate specific antigen [PSA] Erectile dysfunction Essential (primary) hypertension Malnutrition Primary open-angle glaucoma, bilateral, stage unspecified PVD (peripheral vascular disease) Unspecified iridocyclitis Family History Family History Father Carcinoma of colon Patient's father is Family history of malignant neoplasm Mother Patient's mother is Family history unknown Social History Social History Smoking packs per day: 0.5 Smoking cigarettes per day: 10.0 Years smoked: 60 Smoking pack-years: 30.00 Smoking status: Former smoker Alcohol intake: former Alcohol use details: social Substance use: never Substance use type: does not use Lack of Transportation: YES Lack of Food: Never True Current Housing: I Have Housing Concerned About Future Housing: No Difficulty Paying Gas/Electric Bills: No Difficulty Paying for Meds: No Currently Unemployed: No Education: High School Diploma/GED Difficulty w/ Childcare or Family Care: No Living arrangements: with family Spiritual care concerns: No Meds Home Medications and Allergies Home Medications Medication Instructions Recorded Confirmed Type cyanocobalamin (vitamin B-12) 1,000 mcg PO DAILY 04/03/21 11/07/23 History 1,000 mcg tablet memantine 10 mg tablet 10 mg PO DAILY 04/03/21 11/07/23 History aspirin 81 mg tablet,delayed 81 mg PO DAILY 06/14/22 11/07/23 History release (Adult Aspirin Regimen) cetirizine 10 mg tablet 10 mg PO DAILY PRN Congestion 06/14/22 11/07/23 History ipratropium bromide 21 mcg (0.03 See Rx Instructions .Route 06/14/22 11/07/23 Rx %) nasal spray .COMPLEX #90 mL atorvastatin 20 mg tablet 20 mg PO DAILY #90 tabs 01/22/23 11/07/23 Rx thiamine HCl (vitamin B1) 250 mg 250 mg PO DAILY 03/28/23 11/07/23 History tablet betaxolol 0.5 % eye drops 1 drp EACH EYE BID 11/07/23 11/07/23 History bisacodyl 10 mg rectal suppository 10 mg RECTAL DAILY PRN Constipation 11/07/23 11/07/23 History magnesium citrate (Citroma oral 300 ml PO DAILY PRN Constipation 11/07/23 11/07/23 History solution) magnesium hydroxide 400 mg/5 mL 30 ml PO DAILY PRN Constipation 11/07/23 11/07/23 History oral suspension (Milk of Magnesia) sodium phosphates 19 gram-7 118 ml RECTAL ONCE PRN Constipation 11/07/23 11/07/23 History gram/118 mL enema (Fleet Enema) tamsulosin 0.4 mg capsule 0.4 mg PO DAILY 11/07/23 11/07/23 History docusate sodium 50 mg/5 mL oral 100 mg (10 mL) feeding tube Q12HR 11/14/23 Rx liquid #1,000 mL Allergies Allergy/AdvReac Type Severity Reaction Status Date / Time No Known Allergies Allergy Unknown Verified 01/15/24 11:55 Vital Signs Vital Signs - 24 hr 01/15/24 07:05 01/15/24 08:55 01/15/24 11:45 Temperature 97.6 F 97.7 F Pulse Rate 78 90 85 Respiratory Rate 20 16 18 Blood Pressure 107/75 102/70 117/71 Pulse Oximetry 97 99 90 Oxygen Delivery Room Air Room Air Exam Narrative: pleasantly confused. Const: General: comfortable Other: Am
[2024-01-15] MEDS: ceFAZolin 1 GM/NS 50 ML 1 GM/50 ML BAG IVPB (12:35)
--- NOTE | 2024-01-15 13:00 | SUR.PREOP ---
Addendum entered by Gurjit Tobias RN 01/15/24 13:05: completed at 01/15/24 @ 1200. Original Note: Patient brought to GI lab for PEG tube replacement. Attempted to call sister/HARSHAD betancourt for telephone consent for procedure. SCR[employer] K[employer]TLE TENDER said sister was at bedside, but left because she thought the procedure was going to be completed tomorrow and the patient was getting sent home. Unable to reach her at this time. Per Dr. Ceja, procedure is being deemed medically necessary at this time. Consent signed with Dr. Ceja at the bedside.
--- NOTE | 2024-01-15 13:17 | SUR.PHASEII ---
Pt awaiting ambulance back to [facility]. Estimated arrival to hospital 0900.
--- NOTE | 2024-01-15 14:26 | SUR.PHASEII ---
Report called to [facility] by Gurjit PHELAN. Report given to EMS at bedside.
== END 2024-01-15 14:19 | disposition other institution (70) ==
LOC: ANHED 10:25 → ANHSURGERY 10:25 → ANHENDO 13:27
PROVIDERS: Emergency Provider Emergency Medicine; PCP Family Medicine; Visit Provider Internal Medicine Gastroenterology
PROC: 0DH63UZ Insertion of Feeding Device into Stomach, Percutaneous Approach (ICD-10-PCS; CPT 43246; principal; 2024-01-15 15:30)
DX: K94.23 Gastrostomy malfunction (principal); F03.90 Unspecified dementia, unspecified severity, without behavioral disturbance, psychotic disturbance, mood disturbance, and anxiety; I12.9 Hypertensive chronic kidney disease with stage 1 through stage 4 chronic kidney disease, or unspecified chronic kidney disease; N18.30 Chronic kidney disease, stage 3 unspecified; N52.9 Male erectile dysfunction, unspecified; I49.3 Ventricular premature depolarization; Z79.82 Long term (current) use of aspirin; Z87.891 Personal history of nicotine dependence; Z86.79 Personal history of other diseases of the circulatory system; Z80.0 Family history of malignant neoplasm of digestive organs
CPT/HCPCS: 43246; 99285; J0690; J2003; J2704; J7120

== ENCOUNTER 2024-02-27 21:16 | Emergency (ER) | payer MEDICARE, MEDICAID, SELFPAY ==
--- NOTE | ~2024-02-27 | XR_ITS ---
XR abdomen gastric tube insert DATE: 02/27/2024 22:20 INDICATION: Gastrostomy tube placement TECHNIQUE: Portable supine AP view on 02/27/2024 at 2214 hours COMPARISON: 01/15/2024 portable supine KUB FINDINGS: A gastrostomy tube overlies the gastric antrum. There is radiopaque contrast material withi n the gastric lumen and duodenum and proximal jejunum. No extravasated contrast material is noted. IMPRESSION: Gastrostomy tube in gastric antrum Reviewed, dictated and finalized at [facility]. Reviewed, dictated and finalized at location [facility]. OR AUDIT MANAGER
[2024-02-27 21:17] VITALS: BP 112/74; PULSE 83; RESP 15; TEMP 36.6; O2SAT 100
--- NOTE | 2024-02-27 21:32 | ED_ITS ---
HPI - Recheck/Abnormal Lab/Rx General Chief Complaint: Recheck/Abnormal Lab/Rx Stated Complaint: DISPLACED G-TUBE Time Seen by Provider: 02/27/24 21:16 Source: patient Mode of arrival: EMS Limitations: dementia History of Present Illness HPI narrative: This is a 79-year-old male who presents to the ED via EMS from local [facility] for G-tube being dislodged. They are unsure how long it has been out today. Per chart review patient has had G-tube placement since at least October of 2023. Patient is alert oriented x1 which is his baseline. EMS is unsure how long the G-tube has been dislodged today. Related Data Home Medications Medication Instructions Recorded Confirmed cyanocobalamin (vitamin B-12) 1,000 mcg PO DAILY 04/03/21 11/07/23 1,000 mcg tablet memantine 10 mg tablet 10 mg PO DAILY 04/03/21 11/07/23 aspirin 81 mg tablet,delayed 81 mg PO DAILY 06/14/22 11/07/23 release (Adult Aspirin Regimen) cetirizine 10 mg tablet 10 mg PO DAILY PRN Congestion 06/14/22 11/07/23 thiamine HCl (vitamin B1) 250 mg 250 mg PO DAILY 03/28/23 11/07/23 tablet betaxolol 0.5 % eye drops 1 drp EACH EYE BID 11/07/23 11/07/23 bisacodyl 10 mg rectal suppository 10 mg RECTAL DAILY PRN Constipation 11/07/23 11/07/23 magnesium citrate (Citroma oral 300 ml PO DAILY PRN Constipation 11/07/23 11/07/23 solution) magnesium hydroxide 400 mg/5 mL 30 ml PO DAILY PRN Constipation 11/07/23 11/07/23 oral suspension (Milk of Magnesia) sodium phosphates 19 gram-7 118 ml RECTAL ONCE PRN Constipation 11/07/23 08/11/22 gram/118 mL enema (Fleet Enema) tamsulosin 0.4 mg capsule 0.4 mg PO DAILY 11/07/23 11/07/23 Allergies Allergy/AdvReac Type Severity Reaction Status Date / Time No Known Allergies Allergy Unknown Verified 01/15/24 11:55 Review of Systems Review of Systems: All systems as dictated in HPI [facility] Past Medical History Medical History Acute non-ST elevation myocardial infarction (NSTEMI) (03/2023) Chronic kidney disease, stage 3 (moderate) Colon cancer screening Elevated prostate specific antigen [PSA] Erectile dysfunction Essential (primary) hypertension Malnutrition Primary open-angle glaucoma, bilateral, stage unspecified PVD (peripheral vascular disease) Unspecified iridocyclitis Family History Family History Father Carcinoma of colon Patient's father is Family history of malignant neoplasm Mother Patient's mother is Family history unknown Social History Social History Smoking packs per day: 0.5 Smoking cigarettes per day: 10.0 Years smoked: 60 Smoking pack-years: 30.00 Smoking status: Former smoker Alcohol intake: former Alcohol use details: social Substance use: never Substance use type: does not use Lack of Transportation: YES Lack of Food: Never True Current Housing: I Have Housing Concerned About Future Housing: No Difficulty Paying Gas/Electric Bills: No Difficulty Paying for Meds: No Currently Unemployed: No Education: High School Diploma/GED Difficulty w/ Childcare or Family Care: No Living arrangements: with family Spiritual care concerns: No Exam Narrative: GENERAL: Well-appearing, well-nourished, and in no acute distress. HEAD: Normocephalic, atraumatic. EYES: PERRLA and EOMI. ENT: Nares clear, no rhinorrhea or epistaxis. Mucous membranes moist. Oropharynx without tonsillar hypertrophy exudate or other lesions. NECK: Supple. No adenopathy or masses. CHEST: No respiratory distress. Clear to auscultation. No wheezes rales or rhonchi HEART: Regular rate and rhythm. No murmur heard. Normal peripheral pulses. ABDOMEN: 20 Prydeinig G-tube was completely displaced. The skin site has no surrounding erythema or tenderness. Soft, nontender, nondistended, normal active bowel sounds. MSK: Normal range of motion. No edema. SKIN: Warm, dry, no rash. NEURO: Alert and oriented x1, at baseline. No focal deficits. PSYCH: Normal mood and affect. Course Vital Signs Vital signs: Vital Signs Temperature 97.8 F 11/28/24 21:17 Pulse Rate 83 02/27/24 21:17 Respiratory Rate 15 02/27/24 21:17 Blood Pressure 112/74 02/27/24 21:17 Pulse Oximetry 100 02/27/24 21:17 Oxygen Delivery Room Air 02/27/24 21:17 Temperature 97.8 F 02/27/24 21:17 Pulse Rate 83 02/27/24 21:17 Respiratory Rate 15 02/27/24 21:17 Blood Pressure 112/74 02/27/24 21:17 Pulse Oximetry 100 02/27/24 21:17 Oxygen Delivery Room Air 02/27/24 21:17 Procedures Feeding Tube Replacement Feeding Tube #1: Feeding Tube Placement Date: 02/27/24 Feeding Tube Placement Time: 22:19 Type of Tube: gastrostomy Insertion Site Prior to Procedure: clean Tube Used for Reinsertion: other Prydeinig Tube Size (F): 16 Balloon size (mL): 5 Verification of Placement: gastrografin injection Tube Secured by: tape/dressing Patient Tolerated Procedure: well Complications: local bleeding Additional Comments: Patient tolerated the procedure well overall. MDM - Recheck/Abnormal Lab/Rx MDM Narrative Medical decision making narrative: This is a 71-year-old male presents from the correction for G-tube dislodgement. Vitals are normal. Exam shows G-tube site is intact and G-tube has been completely dislodged. A new G-tube was replaced today, 16 Prydeinig. Confirmed by Gastrografin x-ray. Patient will be discharged in stable condition. Supportive measures discussed and return precautions given. Patient is understanding and agreeable with plan for discharge with PCP follow-up. Discharge Plan Discharge Clinical Impression: Dislodged gastrostomy tube Patient Disposition: [facility] Living Condition: Stable Instructions: Antibiotic Form, How to Use and Care for Your PEG Tube (DC) Prescriptions: No Action memantine 10 mg tablet 10 mg PO DAILY cyanocobalamin (vitamin B-12) 1,000 mcg tablet 1,000 mcg PO DAILY cetirizine 10 mg tablet 10 mg PO DAILY PRN (Reason: Congestion) aspirin [Adult Aspirin Regimen] 81 mg tablet,delayed release (DR/EC) 81 mg PO DAILY magnesium hydroxide [Milk of Magnesia] 400 mg/5 mL Suspension 30 ml PO DAILY PRN (Reason: Constipation) tamsulosin 0.4 mg capsule 0.4 mg PO DAILY bisacodyl 10 mg Suppository 10 mg RECTAL DAILY PRN (Reason: Constipation) Rx Instructions: if no results from MOM Fleet Enema 19-7 gram/118 mL Enema 118 ml RECTAL ONCE PRN (Reason: Constipation) Rx Instructions: 1 application rectally as needed for constipation, if no results 1 day after suppository. magnesium citrate [Citroma] Solution 300 ml PO DAILY PRN (Reason: Constipation) Rx Instructions: give as needed for constipation in am if no results after enema. if no results within 1 hour of completion of bowel protocol, contact md. betaxolol 0.5 % drops 1 drp EACH EYE BID docusate sodium 50 mg/5 mL Liquid 100 mg feeding tube Q12HR Qty: 1000 0RF thiamine HCl (vitamin B1) 250 mg Tablet 250 mg PO DAILY ipratropium bromide 21 mcg (0.03 %) spray,non-aerosol See Rx Instructions .ROUTE .COMPLEX Qty: 90 0RF Dose Instruction: USE 2 SPRAYS IN EACH NOSTRIL THREE TIMES DAILY Rx Instructions: USE 2 SPRAYS IN EACH NOSTRIL THREE TIMES DAILY atorvastatin 20 mg tablet 20 mg PO DAILY Qty: 90 1RF Follow-up/Referrals: Bharathi Drake MD [Primary Care Provider] - Stand Alone Forms: Custodial Discharge Time of Disposition: 22:40
[2024-02-27] MEDS: LORazepam INJ (*CRX) 2 MG/ML VIAL 1 MG IM (22:05)
[2024-02-27 22:13] VITALS: BP 132/65; PULSE 77; RESP 14; O2SAT 100
== END 2024-02-28 00:15 ==
PROVIDERS: Emergency Provider Physician Assistant; PCP Family Medicine
DX: Z43.1 Encounter for attention to gastrostomy (principal); I25.2 Old myocardial infarction; I12.9 Hypertensive chronic kidney disease with stage 1 through stage 4 chronic kidney disease, or unspecified chronic kidney disease; N18.30 Chronic kidney disease, stage 3 unspecified; I73.9 Peripheral vascular disease, unspecified; H40.1130 Primary open-angle glaucoma, bilateral, stage unspecified; Z87.891 Personal history of nicotine dependence; Z79.899 Other long term (current) drug therapy; Z79.82 Long term (current) use of aspirin
CPT/HCPCS: 43762; 96372; 99283; J2060

== ENCOUNTER 2024-02-28 04:42 | Emergency (ER) | payer MEDICARE, MEDICAID, SELFPAY ==
--- NOTE | ~2024-02-28 | XR_ITS ---
XR abdomen gastric tube insert DATE: 02/28/2024 05:45 INDICATION: Post gastrostomy tube placement TECHNIQUE: Portable supine AP view COMPARISON: 02/27/2024 portable KUB FINDINGS: Gastrostomy tube overlies the body of the stomach slightly left of midline. Radiopaque cont rast material is noted within the gastric lumen. No contrast material extravasation is identified. There is residual contrast material within the colon from the gastrostomy tube placement and contrast material injection on 02/27/2024. No bowel obstruction is evident. The appendix is normal. IMPRESSION: Gastrostomy tube in body of stomach Reviewed, dictated and finalized at [facility]. Reviewed, dictated and finalized at location [facility]. TRUCTION DRILLER
[2024-02-28 04:41] VITALS: BP 111/79; PULSE 98; RESP 15; TEMP 36.4; O2SAT 100
--- NOTE | 2024-02-28 04:50 | ED.GENADULT ---
HPI - General Adult General Chief complaint: Recheck/Abnormal Lab/Rx Stated complaint: DISLODGED G-TUBE Time Seen by Provider: 02/28/24 04:49 History of Present Illness HPI narrative: patient is a 79-year-old gentleman who presents emergency department with chief complaint of pulled G-tube out patient was sent from a local nursing facility after he pulled G-tube out again the facility was unable to adequately prevent the patient from pulling out his G-tube Related Data Home Medications Medication Instructions Recorded Confirmed cyanocobalamin (vitamin B-12) 1,000 mcg PO DAILY 04/03/21 11/07/23 1,000 mcg tablet memantine 10 mg tablet 10 mg PO DAILY 04/03/21 11/07/23 aspirin 81 mg tablet,delayed 81 mg PO DAILY 06/14/22 11/07/23 release (Adult Aspirin Regimen) cetirizine 10 mg tablet 10 mg PO DAILY PRN Congestion 06/14/22 11/07/23 thiamine HCl (vitamin B1) 250 mg 250 mg PO DAILY 03/28/23 11/07/23 tablet betaxolol 0.5 % eye drops 1 drp EACH EYE BID 11/07/23 11/07/23 bisacodyl 10 mg rectal suppository 10 mg RECTAL DAILY PRN Constipation 11/07/23 11/07/23 magnesium citrate (Citroma oral 300 ml PO DAILY PRN Constipation 11/07/23 11/07/23 solution) magnesium hydroxide 400 mg/5 mL 30 ml PO DAILY PRN Constipation 11/07/23 11/07/23 oral suspension (Milk of Magnesia) sodium phosphates 19 gram-7 118 ml RECTAL ONCE PRN Constipation 11/07/23 11/07/23 gram/118 mL enema (Fleet Enema) tamsulosin 0.4 mg capsule 0.4 mg PO DAILY 11/07/23 11/07/23 Allergies Allergy/AdvReac Type Severity Reaction Status Date / Time No Known Allergies Allergy Unknown Verified 01/15/24 11:55 Review of Systems Review of Systems: A 10 system review of systems was completed on the patient and is negative except for what is stated in the HPI. Nursing and ancillary documentation was reviewed. [facility] Past Medical History Medical History Acute non-ST elevation myocardial infarction (NSTEMI) (03/2023) Chronic kidney disease, stage 3 (moderate) Colon cancer screening Elevated prostate specific antigen [PSA] Erectile dysfunction Essential (primary) hypertension Malnutrition Primary open-angle glaucoma, bilateral, stage unspecified PVD (peripheral vascular disease) Unspecified iridocyclitis Family History Family History Father Carcinoma of colon Patient's father is Family history of malignant neoplasm Mother Patient's mother is Family history unknown Social History Social History Smoking packs per day: 0.5 Smoking cigarettes per day: 10.0 Years smoked: 60 Smoking pack-years: 30.00 Smoking status: Former smoker Alcohol intake: former Alcohol use details: social Substance use: never Substance use type: does not use Lack of Transportation: YES Lack of Food: Never True Current Housing: I Have Housing Concerned About Future Housing: No Difficulty Paying Gas/Electric Bills: No Difficulty Paying for Meds: No Currently Unemployed: No Education: High School Diploma/GED Difficulty w/ Childcare or Family Care: No Living arrangements: with family Spiritual care concerns: No Exam Narrative: GENERAL:Chronically ill-appearing HEAD: Normocephalic, atraumatic. EYES: PERRLA and EOMI. ENT: Nares clear, no rhinorrhea or epistaxis. Mucous membranes moist. NECK: Supple. CHEST: Clear to auscultation. No respiratory distress. HEART: Regular rate and rhythm. No murmur heard. Normal peripheral pulses. ABDOMEN: Soft, nontender, nondistended, normal active bowel sounds. EXTREMITIES: Normal range of motion. No edema. SKIN: Warm, dry, no rash. NEURO: No focal deficits. Alert and oriented x1 currently at baseline. PSYCH: Normal mood and affect. Course Vital Signs Vital signs: Vital Signs Temperature 36.4 C L 02/28/24 04:41 Pulse Rate 98 02/28/24 04:41 Respiratory Rate 15 02/28/24 04:41 Blood Pressure 111/79 02/28/24 04:41 Pulse Oximetry 100 02/28/24 04:41 Temperature 36.4 C L 02/28/24 04:41 Pulse Rate 98 02/28/24 04:41 Respiratory Rate 15 02/28/24 04:41 Blood Pressure 111/79 02/28/24 04:41 Pulse Oximetry 100 02/28/24 04:41 Procedures Feeding Tube Replacement Feeding Tube #1: Feeding Tube Placement Date: 02/28/24 Feeding Tube Placement Time: 04:53 Type of Tube: gastrostomy Insertion Site Prior to Procedure: clean Tube Used for Reinsertion: Bard Faroese Tube Size (F): 20 Balloon size (mL): 5 Verification of Placement: auscultation, KUB and gastrografin injection Tube Secured by: attachment device Patient Tolerated Procedure: well and no complications Medical Decision Making Vital Signs Vital Signs: Vital Signs Temperature 36.4 C L 02/28/24 04:41 Pulse Rate 98 02/28/24 04:41 Respiratory Rate 15 02/28/24 04:41 Blood Pressure 111/79 02/28/24 04:41 Pulse Oximetry 100 02/28/24 04:41 Temperature 36.4 C L 02/28/24 04:41 Pulse Rate 98 02/28/24 04:41 Respiratory Rate 15 02/28/24 04:41 Blood Pressure 111/79 02/28/24 04:41 Pulse Oximetry 100 02/28/24 04:41 Discharge Plan Discharge Clinical Impression: Dislodged gastrostomy tube Patient Disposition: [facility] Living Condition: Stable Instructions: Antibiotic Form Additional Instructions: Please follow appropriate care of a feeding tube patient. a binder was placed on the patient to protect the patient from pulling out his G-tube. It is recommended the facility have additional education from your administration about care of feeding tube patients to reduce the likelihood of disturbance of the tube. Prescriptions: No Action memantine 10 mg tablet 10 mg PO DAILY cyanocobalamin (vitamin B-12) 1,000 mcg tablet 1,000 mcg PO DAILY cetirizine 10 mg tablet 10 mg PO DAILY PRN (Reason: Congestion) aspirin [Adult Aspirin Regimen] 81 mg tablet,delayed release (DR/EC) 81 mg PO DAILY magnesium hydroxide [Milk of Magnesia] 400 mg/5 mL Suspension 30 ml PO DAILY PRN (Reason: Constipation) tamsulosin 0.4 mg capsule 0.4 mg PO DAILY bisacodyl 10 mg Suppository 10 mg RECTAL DAILY PRN (Reason: Constipation) Rx Instructions: if no results from MOM Fleet Enema 19-7 gram/118 mL Enema 118 ml RECTAL ONCE PRN (Reason: Constipation) Rx Instructions: 1 application rectally as needed for constipation, if no results 1 day after suppository. magnesium citrate [Citroma] Solution 300 ml PO DAILY PRN (Reason: Constipation) Rx Instructions: give as needed for constipation in am if no results after enema. if no results within 1 hour of completion of bowel protocol, contact md. betaxolol 0.5 % drops 1 drp EACH EYE BID docusate sodium 50 mg/5 mL Liquid 100 mg feeding tube Q12HR Qty: 1000 0RF thiamine HCl (vitamin B1) 250 mg Tablet 250 mg PO DAILY ipratropium bromide 21 mcg (0.03 %) spray,non-aerosol See Rx Instructions .ROUTE .COMPLEX Qty: 90 0RF Dose Instruction: USE 2 SPRAYS IN EACH NOSTRIL THREE TIMES DAILY Rx Instructions: USE 2 SPRAYS IN EACH NOSTRIL THREE TIMES DAILY atorvastatin 20 mg tablet 20 mg PO DAILY Qty: 90 1RF Follow-up/Referrals: Bharathi Drake MD [Primary Care Provider] - Time of Disposition: 04:51
[2024-02-28 06:17] VITALS: BP 118/80; PULSE 88; RESP 15; O2SAT 98
== END 2024-02-28 06:24 ==
LOC: ANHED 04:54
PROVIDERS: Emergency Provider Emergency Medicine; PCP Family Medicine
DX: Z43.1 Encounter for attention to gastrostomy (principal); Z79.82 Long term (current) use of aspirin; N18.30 Chronic kidney disease, stage 3 unspecified; I12.9 Hypertensive chronic kidney disease with stage 1 through stage 4 chronic kidney disease, or unspecified chronic kidney disease; I25.2 Old myocardial infarction; Z87.891 Personal history of nicotine dependence
CPT/HCPCS: 43762; 99283

== ENCOUNTER 2024-03-18 15:31 | Inpatient (IN) | payer MEDICARE, MEDICAID, SELFPAY ==
[2024-03-18] VITALS (11 sets, daily range): BP systolic 95–123; BP diastolic 50–81; PULSE 86–110; RESP 18–28; TEMP 36.6–37.2; O2SAT 95–100; BMI 18.6
--- NOTE | ~2024-03-18 | XR_ITS ---
EXAMINATION: XR chest 1V portable DATE: 03/22/2024 07:53 INDICATION: Pneumonia. TECHNIQUE: A single frontal view of the chest was obtained on 2 radiographs. COMPARISON: Chest single view 03/21/2024 FINDINGS: There are airspace opacities in right middle lower lung zones and left lower lung zone. No pleural effusion or pneumothorax. The heart size is normal. IMPRESSION: 1. Airspace opacities in right mid and lower lung zones and left lower lung zone with mild worsening on the left, consistent with pneumonia. Reviewed, dictated and finalized at location A. M FITTER HELPER IMPRESSION: 1. Airspace opacities in right mid and lower lung zones and left lower lung zon e with mild worsening on the left, consistent with pneumonia.
--- NOTE | ~2024-03-18 | US_ITS ---
US abdomen complete DATE: 03/21/2024 16:40 INDICATION: Elevated liver function tests. Low-grade fever. TECHNIQUE: Real-time imaging and Doppler analysis of the abdomen COMPARISON: 03/29/2023 KUB 02/28/2023 CT abdomen pelvis FINDINGS: No hepatic or pancreatic space-occupying mass lesion is detected. Normal hepatopedal portal venous flow direction. The common bile duct measures 1.9 mm, normal. No gallstones or gallbladder wall thickening or pericholecystic fluid is detected. Normal splenic size. Right kidney measures 9.5 cm length, left kidney 9.3 cm length. No renal mass lesion or hydronephrosi s is detected. IMPRESSION: No significant abnormality Reviewed, dictated and finalized at Location A. Reviewed, dictated and finalized at location A. TING MACHINE OPERATOR IMPRESSION: No significant abnormality
--- NOTE | ~2024-03-18 | XR_ITS ---
EXAMINATION: XR chest 1V portable DATE: 04/01/2024 06:46 INDICATION: Vomiting. Possible aspiration. TECHNIQUE: frontal view of the chest was obtained. COMPARISON: Chest radiograph dated 03/28/2024 FINDINGS: Diffuse airspace opacities throughout both lungs, greater on the right where there has been some inte rval progression. Likely small bilateral pleural effusions. No pneumothorax. Heart size is normal. Mi ldly aneurysmal aortic arch. IMPRESSION: 1. Diffuse bilateral lung disease, more prominent than with interval progression on the right. Differ ential would include multifocal pneumonia and/or asymmetric pulmonary edema. Reviewed, dictated and finalized at location A. ENGINES INSTALLER IMPRESSION: 1. Diffuse bilateral lung disease, more prominent than with interval progressio n on the right. Differential would include multifocal pneumonia and/or asymmetr ic pulmonary edema.
--- NOTE | ~2024-03-18 | XR_ITS ---
EXAMINATION: XR abdomen/kub 1V DATE: 04/01/2024 06:46 INDICATION: Vomiting TECHNIQUE: A supine view of the abdomen on 2 radiographs was obtained. COMPARISON: None. FINDINGS: Percutaneous gastrostomy tube bulb projects over the central left abdomen. 10 cm ball of stool at the rectum suggestive of constipation with fecal impaction. Moderate amount of gas and stool in the more proximal colon. No dilated loops of gas-filled small bowel to suggest obstruction. IMPRESSION: 1. 10 cm ball of stool at rectum suggestive of constipation with fecal impaction. Reviewed, dictated and finalized at location A. SPOTTER IMPRESSION: 1. 10 cm ball of stool at rectum suggestive of constipation with fecal impactio nGlenroy
--- NOTE | ~2024-03-18 | XR_ITS ---
XR chest 1V portable Ordering provider: London Almanzar NP History: 79 years Male with . SOB LUNG SOUNDS . Comparison: March 22, 2024 FINDINGS: MEDIASTINUM: The cardiac silhouette is slightly enlarged. LUNGS: No effusions or pneumothorax. Bilateral interstitial and alveolar opacification suggestive of pneumonia involving the upper and lower lobes. Underlying fibrotic changes are noted. Pulmonary edema is not excluded. OTHER: No free air under the diaphragm. Degenerative the spine. IMPRESSION: Bilateral pneumonia. Underlying pulmonary edema and fibrotic changes are not excluded. Reviewed, dictated and finalized at location A. STRIAL WASTE TREATMENT TECHNICIAN IMPRESSION: Bilateral pneumonia. Underlying pulmonary edema and fibrotic changes are not ex cluded.
--- NOTE | ~2024-03-18 | XR_ITS ---
EXAMINATION: XR chest 1V portable DATE: 03/21/2024 05:52 INDICATION: Pneumonia. TECHNIQUE: A single frontal view of the chest was obtained. COMPARISON: Chest single view 03/19/2024, chest CT 03/18/2024 FINDINGS: There are airspace opacities in the right mid and lower lung zones and left lower lung zone . No pleural effusion or pneumothorax. The heart size is normal. IMPRESSION: 1. Worsened airspace opacities in right mid and lower lung zones and left lower lung zone, consistent with pneumonia. Reviewed, dictated and finalized at location A. DOWN ATTENDANT
--- NOTE | ~2024-03-18 | XR_ITS ---
XR chest 1V portable Ordering provider: Justus Estevez MD History: 79 years Male with . SOB . Comparison: November 07, 2023 FINDINGS: MEDIASTINUM: The cardiac silhouette is not enlarged. Prominent both avni. LUNGS: No effusions or pneumothorax. Opacification in the right mid and lower zone. Underlying emphys ematous changes. OTHER: No free air under the diaphragm. IMPRESSION: right mid and lower zone pneumonia. Prominent both avni more on the right side. If clinically warranted CT is advised for further evaluat ion. Reviewed, dictated and finalized at location A. SPERSON BOOKS IMPRESSION: right mid and lower zone pneumonia. Prominent both avni more on the right side. If clinically warranted CT is advis ed for further evaluation.
--- NOTE | ~2024-03-18 | CT_ITS ---
EXAMINATION:CT diagnostic chest wo con DATE: 03/18/2024 17:46 INDICATION: Pneumonia. Abnormal chest radiographs. TECHNIQUE: Computed tomography (CT) of the chest was performed without intravenous contrast. Automate d exposure control and iterative reconstruction technique were employed. The dose-length product (DLP ) was 157.84 mGy-cm. COMPARISON: Chest single view 03/18/2024 FINDINGS: There is moderate emphysema. There is mild scarring at left lung apex. There are airspace o pacities in all right lung lobes with a posterior lower lung predominance, consistent with pneumonia. Calcified bilateral lung nodules and calcified right hilar lymph nodes are consistent with old granu lomatous disease. There is a 5 mm nodule in left upper lobe, likely benign. There is material in the bronchi in right middle lobe and right lower lobe. There is mild dependent atelectasis in left lower lobe. No pleural effusion. The heart size is normal. No pericardial effusion. There is mild mediastin al lymphadenopathy. A gastrostomy tube is partially visualized. There is a chronic compression fractu re of L2. There are bridging endplate osteophytes at multiple levels in the spine, consistent with di ffuse idiopathic skeletal hyperostosis (DISH). IMPRESSION: 1. Right-sided pneumonia with a posterior and lower lung predominance. 2. Material in the right middle lobe and right lower lobe bronchi, which may be mucous plugging or as pirated material. 3. Moderate emphysema. 4. Mild mediastinal lymphadenopathy, likely reactive. Reviewed, dictated and finalized at location A. RAM AIDE IMPRESSION: 1. Right-sided pneumonia with a posterior and lower lung predominance. 2. Material in the right middle lobe and right lower lobe bronchi, which may be mucous plugging or aspirated material. 3. Moderate emphysema. 4. Mild mediastinal lymphadenopathy, likely reactive.
--- NOTE | ~2024-03-18 | XR_ITS ---
XR chest 1V portable 03/19/2024 09:56 Indication: Aspiration Procedure: AP portable chest Comparison: Comparison to multiple prior studies sequentially, with oldest reviewed study dated 10/2023. Findings: There is patchy bilateral airspace disease, consistent with pneumonia, most confluent in th e right mid and lower lung. Heart size normal. The lungs are hyperinflated which is consistent with, but not diagnostic of chronic obstructive pulmonary disease. Impression: 1: Bilateral airspace disease, compatible with pneumonia. Reviewed, dictated and finalized at location B. ORIAN DRAMATIC ARTS Impression: 1: Bilateral airspace disease, compatible with pneumonia.
[2024-03-18] MEDS: ALBUTEROL SULFATE NEB 2.5 MG/3 ML INH 5 MG INHALATION (15:52)
--- NOTE | 2024-03-18 16:20 | ED_ITS ---
HPI - General Adult General Chief complaint: Shortness of Breath/Dyspnea Stated complaint: SOB Time Seen by Provider: 03/18/24 15:34 History of Present Illness HPI narrative: 71-year-old male present to the emergency department from a local custodial for evaluation for suspected aspiration pneumonia. correction states that the patient had an episode of emesis and then had difficulty handling his secretions and worsening shortness of breath. Upon arrival emergency department by EMS patient had copious secretions and was having difficulty coughing up the secretions. Suction did help dramatically. upon arrival emergency department patient was saturating well on 6 L of oxygen by nasal cannula. Related Data Home Medications ?Medication ?Instructions ?Recorded ?Confirmed ?Last Taken ?Type cyanocobalamin (vitamin B-12) 1,000 mcg PO DAILY 04/03/21 11/07/23 Unknown History 1,000 mcg tablet memantine 10 mg tablet 10 mg PO DAILY 04/03/21 11/07/23 Unknown History aspirin 81 mg tablet,delayed 81 mg PO DAILY 06/14/22 11/07/23 Unknown History release (Adult Aspirin Regimen) cetirizine 10 mg tablet 10 mg PO DAILY PRN Congestion 06/14/22 11/07/23 Unknown History thiamine HCl (vitamin B1) 250 mg 250 mg PO DAILY 03/28/23 11/07/23 Unknown History tablet betaxolol 0.5 % eye drops 1 drp EACH EYE BID 11/07/23 11/07/23 Unknown History bisacodyl 10 mg rectal suppository 10 mg RECTAL DAILY PRN Constipation 11/07/23 11/07/23 Unknown History magnesium citrate (Citroma oral 300 ml PO DAILY PRN Constipation 11/07/23 11/07/23 Unknown History solution) magnesium hydroxide 400 mg/5 mL 30 ml PO DAILY PRN Constipation 11/07/23 11/07/23 Unknown History oral suspension (Milk of Magnesia) sodium phosphates 19 gram-7 118 ml RECTAL ONCE PRN Constipation 11/07/23 11/07/23 Unknown History gram/118 mL enema (Fleet Enema) tamsulosin 0.4 mg capsule 0.4 mg PO DAILY 11/07/23 11/07/23 Unknown History Allergies Allergy/AdvReac Type Severity Reaction Status Date / Time No Known Allergies Allergy Unknown Verified 03/18/24 16:16 Review of Systems 2 Review of Systems: All systems reviewed & are unremarkable except as noted in HPI and below PMFSH Past Medical History Medical History Acute non-ST elevation myocardial infarction (NSTEMI) (03/2023) Chronic kidney disease, stage 3 (moderate) Colon cancer screening Elevated prostate specific antigen [PSA] Erectile dysfunction Essential (primary) hypertension Malnutrition Primary open-angle glaucoma, bilateral, stage unspecified PVD (peripheral vascular disease) Unspecified iridocyclitis Family History Family History Father Carcinoma of colon Patient's father is Family history of malignant neoplasm Mother Patient's mother is Family history unknown Social History Social History Smoking packs per day: 1 Smoking cigarettes per day: 20.0 Years smoked: 60 Smoking pack-years: 60.00 Smoking status: Former smoker Tobacco type: cigarettes Second hand tobacco smoke exposure: No Alcohol intake: never Alcohol use details: social Substance use: never Substance use type: does not use Lack of Transportation: YES Lack of Food: Never True Current Housing: I Have Housing Concerned About Future Housing: No Difficulty Paying Gas/Electric Bills: No Difficulty Paying for Meds: No Currently Unemployed: No Education: High School Diploma/GED Difficulty w/ Childcare or Family Care: No Living arrangements: with family Spiritual care concerns: No Exam 2 Narrative: APPEARANCE: Uncomfortable appearing HEAD: normocephalic, atraumatic. EYES: PERRLA/EOMI, conjunctivae clear. NOSE: Normal no drainage EARS:TMS clear with good light reflex. THROAT: Pharynx clear, no exudate. NECK: Supple. No adenopathy, no masses. RESPIRATORY: lots of upper airway secretions and rhonchi bilaterally CARDIOVASCULAR: Regular rate and rhythm without murmurs rubs or gallops. ABDOMINAL: Soft, nontender, nondistended, normal bowel sounds MUSCULOSKELETAL: Moves all extremities. Strength/ROM intact, No edema, No calf tenderness. NEURO: Alert. Cranial nerves II through XII intact. Good gait. Good coordination SKIN: Warm, dry. Normal Color Course Vital Signs Vital signs: Vital Signs Temperature 99.0 F 03/18/24 15:36 Pulse Rate 102 H 03/18/24 15:36 Respiratory Rate 23 H 03/18/24 15:36 Blood Pressure 120/81 03/18/24 15:36 Pulse Oximetry 96 03/18/24 15:36 Oxygen Delivery Nasal Cannula 03/18/24 15:36 Oxygen Flow Rate 6 03/18/24 15:36 Temperature 98.6 F 03/18/24 19:49 Pulse Rate 86 03/18/24 19:49 Respiratory Rate 18 03/18/24 19:49 Blood Pressure 95/50 L 03/18/24 19:49 Pulse Oximetry 100 03/18/24 19:49 Oxygen Delivery Nasal Cannula 03/18/24 17:12 Oxygen Flow Rate 5 03/18/24 17:12 Medical Decision Making MDM Narrative Medical decision making narrative: 79-year-old male presenting to the emergency department for evaluation for suspected aspiration pneumonia. Patient did have a lot of oral secretions that were resolved with suction and this did help the patient's respirations. Patient does have a new O2 requirement and is saturating at 98% on 6 L. Patient does not appear to be in any distress at at this time. Chest x-ray was concerning for pneumonia. Patient was started on Rocephin, azithromycin and vancomycin. CT without contrast was ordered to her further evaluate a perihilar infiltrate. CT was concern for aspiration pneumonia and material within the bronchus. Pulmonology was consulted and they will evaluate if the patient needs a bronchoscopy. Case discussed with hospitalist patient was accepted for admission. Differential Diagnosis Differential Diagnosis: pneumonia, pleural effusion, aspiration pneumonia, mucus plugging, COVID, influenza, RSV Vital Signs Vital Signs: Vital Signs Temperature 99.0 F 03/18/24 15:36 Pulse Rate 102 H 03/18/24 15:36 Respiratory Rate 23 H 03/18/24 15:36 Blood Pressure 120/81 03/18/24 15:36 Pulse Oximetry 96 03/18/24 15:36 Oxygen Delivery Nasal Cannula 03/18/24 15:36 Oxygen Flow Rate 6 03/18/24 15:36 Temperature 98.6 F 03/18/24 19:49 Pulse Rate 86 03/18/24 19:49 Respiratory Rate 18 03/18/24 19:49 Blood Pressure 95/50 L 03/18/24 19:49 Pulse Oximetry 100 03/18/24 19:49 Oxygen Delivery Nasal Cannula 03/18/24 17:12 Oxygen Flow Rate 5 03/18/24 17:12 Lab Data Lab results reviewed: Yes I reviewed the patient's lab results. 03/18/24 16:48 03/18/24 16:48 Labs: Lab Results 03/18/24 03/18/24 Range/Units 16:48 17:43 WBC 9.7 (4.5-10.0) K/mm3 RBC 4.98 (4.6-6.20) M/mm3 Hgb 15.2 D (14.0-18.0) g/dL Hct 46.1 (42.0-52.0) % MCV 92.6 (80-100) fl MCH 30.5 (26-34) pg MCHC 33.0 (32-36) g/dl RDW 13.8 (11.5-14.5) % Plt Count 205 (150-375) k/mm3 MPV 12.8 H (7.4-10.4) fl Immature Gran % (Auto) Not Reportable Neut % (Auto) Not Reportable Lymph % (Auto) Not Reportable [place] % (Auto) Not Reportable Eos % (Auto) Not Reportable Baso % (Auto) Not Reportable Lymph # (Auto) Not Reportable [place] # (Auto) Not Reportable Eos # (Auto) Not Reportable Baso # (Auto) Not Reportable Abs Immat Gran (auto) Not Reportable Absolute Neuts (auto) Not Reportable Absolute Nucleated RBC Not Reportable Total Counted 100 Neutrophils % (Manual) 62 (46-73) % Band Neutrophils % 23 H (0-6) % Lymphocytes % (Manual) 9.0 L (18-44) % Monocytes % (Manual) 6 (3-9) % Nucleated RBC % Not Reportable Abs Neuts (Manual) 8.24 H (1.3-6.7) K/mm3 Abs Lymphs (Manual) 0.87 L (1.1-4.5) K/mm3 Abs Monocytes (Manual) 0.58 (0.1-0.90) K/mm3 Nucleated RBCs 1 % Platelet Estimate Adequate (Adequate) Anisocytosis 1+ Schistocytes None seen Sodium 143 (137-145) mmol/L Potassium 3.5 (3.4-5.0) mmol/L Chloride 106 (98-107) mmol/L Carbon Dioxide 33 H (22-30) mmol/L Anion Gap 4 (4-12) mmol/L BUN 47 H D (9-20) mg/dL Creatinine 1.20 (0.7-1.3) mg/dL Estim Creat Clear Calc 40 ml/min Estimated GFR > 60 (59 - ) Glucose 130 H (65-110) mg/dL Calcium 10.1 (8.4-10.2) mg/dL Total Bilirubin 0.9 (0.2-1.3) mg/dL AST 136 H (17-59) U/L ALT 399 H (6-50) U/L Alkaline Phosphatase 260 H (38-126) U/L Total Protein 8.0 (6.3-8.2) g/dL Albumin 4.0 (3.5-5.1) g/dL Nasal MRSA (PCR) Not detected (NOT DETECTE) Influenza A (RT-PCR) Negative (Negative) Influenza B (RT-PCR) Negative (Negative) RSV (RT-PCR) Negative (Negative) SARS-CoV-2 RNA (RT-PCR) Negative (Negative) Imaging Data Radiologist's impression: Impressions Chest X-Ray 03/18/24 16:04 IMPRESSION: right mid and lower zone pneumonia. Prominent both avni more on the right side. If clinically warranted CT is advised for further evaluation. Chest CT 03/18/24 17:48 IMPRESSION: 1. Right-sided pneumonia with a posterior and lower lung predominance. 2. Material in the right middle lobe and right lower lobe bronchi, which may be mucous plugging or aspirated material. 3. Moderate emphysema. 4. Mild mediastinal lymphadenopathy, likely reactive. Discharge Plan Discharge Clinical Impression: Aspiration pneumonia Patient Disposition: Still a Patient Condition: Serious
[2024-03-18 16:57] LABS: Hematocrit 46.1 % (42.0-52.0); Hemoglobin 15.2 g/dL (14.0-18.0); Mean Corpuscular Hemoglobin 30.5 pg (26-34); Mean Corpuscular Volume 92.6 fl (80-100); Mean Platelet Volume 12.8 fl (7.4-10.4); Platelet Count Result 205 k/mm3 (150-375); Red Blood Count 4.98 M/mm3 (4.6-6.20); Red Cell Distribution Width 13.8 % (11.5-14.5); White Blood Count 9.7 K/mm3 (4.5-10.0)
[2024-03-18 17:07] LABS: Alanine Aminotransferase 399 U/L (6-50); Alkaline Phosphatase 260 U/L (38-126); Anion Gap 4 mmol/L (4-12); Aspartate Amino Transferase 136 U/L (17-59); Bilirubin,Total 0.9 mg/dL (0.2-1.3); Blood Urea Nitrogen 47 mg/dL (9-20); Calcium 10.1 mg/dL (8.4-10.2); Carbon Dioxide 33 mmol/L (22-30); Chloride 106 mmol/L (98-107); Estimated CRCL calculation 40 ml/min; Estimated Glomerular Filt Rate > 60; Glucose 130 mg/dL (65-110); Potassium 3.5 mmol/L (3.4-5.0); Sodium 143 mmol/L (137-145)
[2024-03-18 17:35] LABS: Influenza A QL RT-PCR Negative (Negative); Influenza B QL RT-PCR Negative (Negative); RSV RNA, RT-PCR Negative (Negative); SARS-CoV-2 RNA PCR Negative (Negative)
[2024-03-18 17:40] LABS: Band Neutrophils Percent 23 % (0-6); Lymphocytes Absolute Manual 0.87 K/mm3 (1.1-4.5); Monocytes Absolute Manual 0.58 K/mm3 (0.1-0.90); Monocytes Percent Manual 6 % (3-9); Neutrophils Absolute Manual 8.24 K/mm3 (1.3-6.7); Neutrophils Percent Manual 62 % (46-73); Nucleated Red Blood Cells 1 %; Total Cells Counted 100
[2024-03-18 17:41] LABS: Anisocytosis 1+; Platelet Estimate Adequate (Adequate); Schistocytes None Seen
--- NOTE | 2024-03-18 17:57 | PC.NURSE ---
Lab notified of need for second set of blood cultures.
[2024-03-18] MEDS: AZITHROMYCIN 500 MG/NS 250 ML 500 MG/250 ML BAG 250 MG IVPB (18:44)
[2024-03-18] MEDS: SODIUM CHLORIDE 0.9% IV 1,000 ML 500 ML IV CONT (18:53)
[2024-03-18 19:04] LABS: MRSA (PCR) NOT DETECTED (NOT DETECTE)
--- NOTE | 2024-03-18 19:18 | PC.NURSE ---
1903-Attempted to call report
--- NOTE | 2024-03-18 19:45 | ADMGEN ---
This patient, Ulysses Lane, was admitted to Medical Room 240-. Patient/family oriented to hospital policies and general routines including ID bracelet, bed and alarms, visiting hours, pain management, procedures, bathroom and other care routines, personal items, smoking policy, room service/diet, and visiting hours. Information on how to activate the Rapid Response Team has been discussed. Patient/Family are encouraged to report perceived risks to care and to ask questions if they do not understand what they are told or what they should do.
[2024-03-18] MEDS: SODIUM CHLORIDE 0.9% IV 1,000 ML 999 ML IV CONT (20:08)
[2024-03-18] MEDS: ALBUTEROL SULFATE NEB 2.5 MG/3 ML INH INHALATION (21:02)
[2024-03-18] MEDS: IPRATROPIUM BR 0.02% INH SOLN 0.5 MG/2.5 ML VIAL INHALATION (21:03)
[2024-03-18] MEDS: SODIUM CHLORIDE 0.9% IV 1,000 ML 100 ML IV CONT (21:08)
--- NOTE | 2024-03-18 22:15 | P.HP_ITS ---
H&P: HPI History of Present Illness Date/Time: 03/18/24 23:05 Chief Complaint: Shortness of breath, altered mental status Narrative: 79-year-old male with past medical history of dysphagia with aspiration subsequent G-tube placement October 2023, dementia, coronary artery disease and chronic kidney disease who presented to the hospital from [facility] via EMS due to increased work of breathing and altered mental status. Patient does have history of dementia but is usually confused and and conversant. At the group home patient evidently had an episode of emesis and group home staff had difficulty handling the patient's secretions. On arrival to the ER patient had copious secretions for which the patient was having difficulty coughing. He was deep suctioned and had dramatic improvement in his status. However the patient was still requiring 6 L of supplemental oxygen. Her at the time of his discharge from the hospital October he had been weaned from supplemental oxygen. It does not appear that he is on oxygen at the group home. Patient evidently had temperature of 100.3? at the group home. Patient does open his eyes when his name is called but does not follow commands. He actively resists when I am trying to evaluate his eyes and closes his eyes tightly. He does withdrawal to painful stimuli and moans even when there is no external stimuli. Due to dementia patient is unable to provide any meaningful history thus H&P/HPI was obtained from review of ER records, ER physician report, EMS report and past medical records. Review of Systems 2 Review of Systems: ROS unobtainable: Yes unobtainable due to medical condition (Dementia) and unobtainable due to mental status PMFSH Past Medical History Medical History (Updated 03/19/24 @ 10:50 by YAZ RiosN-Jen) Non-STEMI (non-ST elevated myocardial infarction) Dyslipidemia COPD (chronic obstructive pulmonary disease) Vasomotor rhinitis Dementia Hx of malignant neoplasm of prostate Dysphagia causing pulmonary aspiration with swallowing Status post G-tube placement October 2023 Malnutrition Acute non-ST elevation myocardial infarction (NSTEMI) (03/2023) PVD (peripheral vascular disease) Erectile dysfunction Unspecified iridocyclitis Primary open-angle glaucoma, bilateral, stage unspecified Chronic kidney disease, stage 3 (moderate) Essential (primary) hypertension Surgical History Surgical History (Updated 03/18/24 @ 22:27 by Nissa Greer DO) History of colonoscopy with polypectomy Family History Family History Father Carcinoma of colon Patient's father is Family history of malignant neoplasm Mother Patient's mother is Family history unknown Social History Social History (Updated 03/18/24 @ 22:32 by Nissa Greer DO) Social History: Code status: Full code Healthcare power of prosecuting attorney: Zoe Lane (sister) Smoking packs per day: 1 Smoking cigarettes per day: 20.0 Years smoked: 60 Smoking pack-years: 60.00 Smoking status: Former smoker Tobacco type: cigarettes Second hand tobacco smoke exposure: No Alcohol intake: never Alcohol use details: social Substance use: never Substance use type: does not use Lack of Transportation: YES Lack of Food: Never True Current Housing: I Have Housing Concerned About Future Housing: No Difficulty Paying Gas/Electric Bills: No Difficulty Paying for Meds: No Currently Unemployed: No Education: High School Diploma/GED Difficulty w/ Childcare or Family Care: No Living arrangements: with family Spiritual care concerns: No Meds Home Medications and Allergies Home Medications ?Medication ?Instructions ?Recorded ?Confirmed ?Type cyanocobalamin (vitamin B-12) 1,000 mcg feeding tube DAILY 04/03/21 03/18/24 History 1,000 mcg tablet memantine 10 mg tablet 10 mg feeding tube DAILY 04/03/21 03/18/24 History aspirin 81 mg tablet,delayed 81 mg feeding tube DAILY 06/14/22 03/18/24 History release (Adult Aspirin Regimen) cetirizine 10 mg tablet 10 mg feeding tube DAILY PRN 06/14/22 03/18/24 History Congestion ipratropium bromide 21 mcg (0.03 See Rx Instructions .Route 06/14/22 03/18/24 Rx %) nasal spray .COMPLEX #90 mL thiamine HCl (vitamin B1) 250 mg 250 mg PO DAILY 03/28/23 03/18/24 History tablet betaxolol 0.5 % eye drops 1 drp EACH EYE BID 11/07/23 03/18/24 History bisacodyl 10 mg rectal suppository 10 mg RECTAL DAILY PRN Constipation 11/07/23 03/18/24 History magnesium citrate (Citroma oral 300 ml feeding tube DAILY PRN 11/07/23 03/18/24 History solution) Constipation magnesium hydroxide 400 mg/5 mL 30 ml feeding tube DAILY PRN 11/07/23 03/18/24 History oral suspension (Milk of Magnesia) Constipation sodium phosphates 19 gram-7 118 ml RECTAL ONCE PRN Constipation 11/07/23 03/18/24 History gram/118 mL enema (Fleet Enema) docusate sodium 50 mg/5 mL oral 100 mg (10 mL) feeding tube Q12HR 11/14/23 03/18/24 Rx liquid #1,000 mL Saccharomyces boulardii 250 mg 250 mg feeding tube BID 03/18/24 03/18/24 History capsule acetaminophen 325 mg capsule 650 mg feeding tube Q4H PRN fever 03/18/24 03/18/24 History or pain amino acids-protein hydrolysate 15 See Rx Instructions feeding tube 03/18/24 03/18/24 History gram-100 kcal/30 mL oral liquid DAILY (Pro-Stat Sugar Free) atorvastatin 20 mg tablet 20 mg feeding tube QPM 03/18/24 03/18/24 History ceftriaxone 1 gram solution for 1 g IM Q24H pneumonitis 03/18/24 03/18/24 History injection cholecalciferol (vitamin D3) 1,250 50,000 unit feeding tube 2XW 03/18/24 03/18/24 History mcg (50,000 unit) tablet donepezil 5 mg tablet (Aricept) 5 mg feeding tube HS 03/18/24 03/18/24 History doxazosin 1 mg tablet 1 mg feeding tube QPM 03/18/24 03/18/24 History hydroxyzine pamoate 25 mg capsule 25 mg feeding tube Q12H 03/18/24 03/18/24 History ipratropium 0.5 mg-albuterol 3 mg 3 ml inhalation Q6H PRN shortness 03/18/24 03/18/24 History (2.5 mg base)/3 mL nebulization of breath or wheezing soln lidocaine (PF) 10 mg/mL (1 %) 3 ml IM HS give with Rocephin 03/18/24 03/18/24 History injection solution thiamine HCl (vitamin B1) 100 mg 150 mg feeding tube DAILY 03/18/24 03/18/24 History tablet Allergies Allergy/AdvReac Type Severity Reaction Status Date / Time No Known Allergies Allergy Unknown Verified 03/18/24 16:16 Vital Signs Vital Signs - 24 hr 03/18/24 15:36 03/18/24 15:53 03/18/24 16:02 Temperature 99.0 F Pulse Rate 102 H 102 H 103 H Respiratory Rate 23 H 26 H 28 H Blood Pressure 120/81 Pulse Oximetry 96 Oxygen Delivery Nasal Cannula Oxygen Flow Rate 6 03/18/24 17:12 03/18/24 18:12 03/18/24 19:49 Temperature 98.6 F Pulse Rate 103 H 86 Respiratory Rate 18 18 Blood Pressure 99/75 L 95/50 L Pulse Oximetry 95 95 100 Oxygen Delivery Nasal Cannula Oxygen Flow Rate 5 03/18/24 21:03 03/18/24 21:18 Temperature Pulse Rate 110 H 104 H Respiratory Rate 26 H 26 H Blood Pressure Pulse Oximetry Oxygen Delivery Oxygen Flow Rate Exam 2 Narrative: Weight 62.3 kg BMI 18.6 Const: Other: Acutely ill appearing, debilitated, appears older than stated age HENMT: Other: Mucous membranes are dry, poor dentition, head is normocephalic atraumatic Eyes: Other: Pupils are equal and reactive, positive conjunctival pallor, no scleral icterus Neck: Other: Anterior cervical lymphadenopathy noted, no thyromegaly Resp: Other: Coarse crackles bilaterally, mild tachypnea Cardio: Other: Regular rate, regular rhythm, 2+ bilateral radial pedal pulses, no JVD GI: Other: Diffusely tender, firm, nondistended, positive bowel sounds, G-tube present : Other: Incontinent Skin: Other: Pallor noted, non jaundice, warm to touch Neuro: Other: Patient has withdrawal to painful stimuli and opens his eyes when his name is called but does not track activity of providers on the, he actively resists eyes and closes eyes tightly, increased tone of lower extremities Extrem: Other: These are held slightly in flexion, no clubbing, no cyanosis, no edema Psych: Other: Unable to assess due to patient condition H&P: Results Labs Labs: Laboratory Tests 03/18/24 16:48 03/18/24 16:48 03/18/24 03/18/24 16:48 17:43 WBC 9.7 RBC 4.98 Hgb 15.2 D Hct 46.1 MCV 92.6 MCH 30.5 MCHC 33.0 RDW 13.8 Plt Count 205 MPV 12.8 H Immature Gran % (Auto) Not Reportable Neut % (Auto) Not Reportable Lymph % (Auto) Not Reportable [place] % (Auto) Not Reportable Eos % (Auto) Not Reportable Baso % (Auto) Not Reportable Lymph # (Auto) Not Reportable [place] # (Auto) Not Reportable Eos # (Auto) Not Reportable Baso # (Auto) Not Reportable Abs Immat Gran (auto) Not Reportable Absolute Neuts (auto) Not Reportable Absolute Nucleated RBC Not Reportable Total Counted 100 Neutrophils % (Manual) 62 Band Neutrophils % 23 H Lymphocytes % (Manual) 9.0 L Monocytes % (Manual) 6 Nucleated RBC % Not Reportable Abs Neuts (Manual) 8.24 H Abs Lymphs (Manual) 0.87 L Abs Monocytes (Manual) 0.58 Nucleated RBCs 1 Platelet Estimate Adequate Anisocytosis 1+ Schistocytes None seen Sodium 143 Potassium 3.5 Chloride 106 Carbon Dioxide 33 H Anion Gap 4 BUN 47 H D Creatinine 1.20 Estim Creat Clear Calc 40 Estimated GFR > 60 Glucose 130 H Calcium 10.1 Total Bilirubin 0.9 AST 136 H ALT 399 H Alkaline Phosphatase 260 H Total Protein 8.0 Albumin 4.0 Nasal MRSA (PCR) Not detected Influenza A (RT-PCR) Negative Influenza B (RT-PCR) Negative RSV (RT-PCR) Negative SARS-CoV-2 RNA (RT-PCR) Negative Impressions Chest X-Ray 03/18/24 16:04 IMPRESSION: right mid and lower zone pneumonia. Prominent both avni more on the right side. If clinically warranted CT is advised for further evaluation. Chest CT 03/18/24 17:48 IMPRESSION: 1. Right-sided pneumonia with a posterior and lower lung predominance. 2. Material in the right middle lobe and right lower lobe bronchi, which may be mucous plugging or aspirated material. 3. Moderate emphysema. 4. Mild mediastinal lymphadenopathy, likely reactive. All imaging and EKGs personally reviewed and interpreted. And unless stated otherwise agree with radiologic and cardiology interpretation. Assessment and Plan Assessment and plan (1) Sepsis: Qualifiers: Acute respiratory failure type: with hypoxia Sepsis acute organ dysfunction status: with acute organ dysfunction Sepsis type: sepsis due to unspecified organism Severe sepsis acute organ dysfunction type: acute respiratory failure Severe sepsis shock status: without septic shock Qualified Code(s): A41.9 - Sepsis, unspecified organism; R65.20 - Severe sepsis without septic shock; J96.01 - Acute respiratory failure with hypoxia Code(s): A41.9 - Sepsis, unspecified organism Status: Resolved (2) Aspiration pneumonia: Qualifiers: Aspiration pneumonia type: unspecified Laterality: right Lung location: unspecified part of lung Qualified Code(s): J69.0 - Pneumonitis due to inhalation of food and vomit Code(s): J69.0 - Pneumonitis due to inhalation of food and vomit Status: Acute (3) COPD (chronic obstructive pulmonary disease): Qualifiers: COPD type: COPD with acute lower respiratory infection Qualified Code(s): J44.0 - Chronic obstructive pulmonary disease with (acute) lower respiratory infection Code(s): J44.9 - Chronic obstructive pulmonary disease, unspecified Status: Acute (4) AMS (altered mental status): Qualifiers: Altered mental status type: unspecified Qualified Code(s): R41.82 - Altered mental status, unspecified Code(s): R41.82 - Altered mental status, unspecified Status: Chronic (5) Transaminitis: Code(s): R74.01 - Elevation of levels of liver transaminase levels Status: Chronic (6) Dementia: Qualifiers: Dementia behavioral or psychological symptom: unspecified whether behavioral, psychotic, or mood disturbance or anxiety Dementia severity: severe Dementia type: unspecified type Qualified Code(s): F03.C0 - Unspecified dementia, severe, without behavioral disturbance, psychotic disturbance, mood disturbance, and anxiety Code(s): F03.90 - Unspecified dementia, unspecified severity, without behavioral disturbance, psychotic disturbance, mood disturbance, and anxiety Status: Chronic Plan Patient meets sepsis criteria with tachycardia, tachypnea and leukocytosis in the setting of acute aspiration with aspiration pneumonia and multiple lobes a right lung with associated hypoxic respiratory failure. The patient also has underlying COPD which complicates the matter slightly. Patient was started on Rocephin and azithromycin as well as vancomycin per pulmonology recommendations. Patient evidently had been started on Rocephin IM as outpatient 2 days ago. Patient may benefit from addition of more anaerobic coverage but will defer decision to pulmonology service. Given that patient is MRSA PCR negative we will likely be able to deescalate antibiotics but again will defer to pulmonology. Blood cultures have been obtained and are pending will place patient on scheduled nebulizer treatments with albuterol and Atrovent and will wean oxygen as tolerated. Patient will be placed on aspiration precautions. He will be NPO and will only received G-tube feeds. Patient does have transaminitis but this seems to be somewhat chronic with transaminases improved from prior hospital stay. Will repeat CMP and monitor. Patient does have chronic kidney disease but creatinine is at baseline BUN is moderately elevated. Will place patient on IV fluid hydration and continue G- tube feeds with free water flushes as discussed above will monitor strict I&O's. Patient does have slightly low blood pressures compared to baseline. Will continue IV fluid hydration. Patient has been admitted as observation status. Quality VTE Prophylaxis VTE prophylaxis: pharmacologic ordered (Heparin subq q.12 hours) [address] [facility] Advance Care Plan I have confirmed that the patient's Advanced Care Plan is present, code status is documented, or surrogate decision maker is listed in patient medical record.: Yes Medication Reconciliation I have utilized all available resources to obtain, update and review the patients current medications (includes all prescriptions, OTC, herbals, cannabis, and nutritional supplements).: Yes
[2024-03-18] MEDS: VANCOMYCIN 1,500 MG/NS 500 ML 1,500 MG/500 ML BAG 250 MG IVPB (22:37)
--- NOTE | 2024-03-18 22:38 | ECG_ITS ---
Test Date: 2024-03-18 23:43:58 Measurements Intervals [place] Rate: 95 P: 69 NC: 278 QRS: 53 QRSD: 80 T: 77 QT: 298 QTc: 375 Interpretive Statements SINUS RHYTHM WITH FIRST DEGREE AV BLOCK NONSPECIFIC T-WAVE ABNORMALITY Compared to ECG 11/07/2023 08:56:37 T-wave abnormality now present Myocardial infarct finding no longer present Electronically Signed On 03-19-2024 15:56:28 GEM TECHNICIAN by Rodrigo Wilde M.D.
[2024-03-18] MEDS: hydrOXYzine pamoate 25 MG CAPSULE FEED TUBE (23:21)
[2024-03-19] VITALS (25 sets, daily range): BP systolic 95–99; BP diastolic 56–61; PULSE 71–110; RESP 18–28; TEMP 36.7–36.8; O2SAT 90–97; BMI 18.6
[2024-03-19] MEDS: ALBUTEROL SULFATE NEB 2.5 MG/3 ML INH INHALATION ×4 (00:28→11:36)
[2024-03-19] MEDS: IPRATROPIUM BR 0.02% INH SOLN 0.5 MG/2.5 ML VIAL INHALATION ×4 (00:29→11:36)
[2024-03-19 06:06] LABS: Hematocrit 36.1 % (42.0-52.0); Mean Corpuscular HGB Conc 33.2 g/dl (32-36); Mean Corpuscular Hemoglobin 30.9 pg (26-34); Mean Platelet Volume 12.8 fl (7.4-10.4); Platelet Count Result 161 k/mm3 (150-375); Red Blood Count 3.88 M/mm3 (4.6-6.20); Red Cell Distribution Width 13.8 % (11.5-14.5); White Blood Count 11.6 K/mm3 (4.5-10.0)
[2024-03-19 06:15] LABS: Alanine Aminotransferase 248 U/L (6-50); Alkaline Phosphatase 177 U/L (38-126); Anion Gap 3 mmol/L (4-12); Aspartate Amino Transferase 103 U/L (17-59); Bilirubin,Total 0.8 mg/dL (0.2-1.3); Blood Urea Nitrogen 40 mg/dL (9-20); Carbon Dioxide 29 mmol/L (22-30); Chloride 113 mmol/L (98-107); Estimated CRCL calculation 40 ml/min; Estimated Glomerular Filt Rate > 60; Glucose 121 mg/dL (65-110); Potassium 3.5 mmol/L (3.4-5.0); Sodium 145 mmol/L (137-145)
[2024-03-19 06:39] LABS: Band Neutrophils Percent 21 % (0-6); Lymphocytes Absolute Manual 0.81 K/mm3 (1.1-4.5); Lymphocytes Percent Manual 7 % (18-44); Monocytes Absolute Manual 0.46 K/mm3 (0.1-0.90); Monocytes Percent Manual 4 % (3-9); Neutrophils Absolute Manual 10.32 K/mm3 (1.3-6.7); Neutrophils Percent Manual 68 % (46-73); Platelet Estimate Adequate (Adequate); Total Cells Counted 100
[2024-03-19 06:40] LABS: Anisocytosis 1+; Schistocytes None Seen
[2024-03-19] MEDS: SODIUM CHLORIDE 0.9% IV 1,000 ML 100 ML IV CONT ×2 (09:29→19:57)
[2024-03-19] MEDS: hydrOXYzine pamoate 25 MG CAPSULE FEED TUBE ×2 (09:31→20:44)
[2024-03-19] MEDS: DOCUSATE SODIUM LIQ 100 MG/10 ML UDC FEED TUBE ×2 (09:32→20:44)
[2024-03-19] MEDS: SACCHAROMYCES BOULARDII 250 MG CAPSULE FEED TUBE ×2 (09:32→17:33)
[2024-03-19] MEDS: ASPIRIN 81 MG ENTERIC TABLET PO (09:32)
[2024-03-19] MEDS: CYANOCOBALAMIN 1,000 MCG TABLET 1000 MCG FEED TUBE (09:32)
[2024-03-19] MEDS: HEPARIN SODIUM 5,000 UNITS/ML VIAL 5000 UNITS SUB-Q ×2 (09:32→20:44)
--- NOTE | 2024-03-19 09:56 | P.CONPL_ITS ---
Assessment and Plan Assessment and plan (1) Aspiration pneumonia: Qualifiers: Aspiration pneumonia type: unspecified Laterality: right Lung location: unspecified part of lung Qualified Code(s): J69.0 - Pneumonitis due to inhalation of food and vomit Code(s): J69.0 - Pneumonitis due to inhalation of food and vomit Status: Acute Plan Patient with a PEG tube on tube feedings and NPO at the assisted with emesis on 03/18/24 followed by aspiration at the assisted. He required suctioning at the assisted in supplemental oxygen. Chest x-ray in the emergency department showed right-sided infiltrates and CT scan of the chest showed posterior right upper lobe, right lower lobe and infiltrates in the right middle lobe all in a dependent area consistent with aspiration. he required 6 L in the emergency department. 03/19/24: When I saw the patient today is nonverbal, he does not cough when I requested him to cough. He was on 4 L nasal cannula with saturations 98%. I decreased him to room air and after 8 minutes his saturations remain 96%. I did use yankour and cleared oral secretions from his mouth. He had no upper airway rhonchorous sounds. His white blood cell count is 11.6, his creatinine is 1.2 with a BUN of 40, his MRSA nasal swab PCR is negative. plan: The patient did aspirate. He is on tube feedings and NPO so he would have not aspirated any solid food particles. He had debris in right lower lobe and right middle lobe airways on his CT scan likely mucous. Chest x-ray today demonstrates no lobar collapse. Patient's oxygenation has improved. There is no need for bronchoscopy at this time. Patient was empirically started on vancomycin, ceftriaxone and azithromycin. His MRSA nasal swab is negative. Will discontinue vancomycin, ceftriaxone and azithromyci nand change the patient to unasyn 3 gm Q 6 hours. Will continue DuoNebs Q 6 as a history of COPD with mild apical predominant centrilobular emphysema on a CT scan of the chest. Discussed with Kerline Curiel, kenny folow with you. History of Present Illness History of Present Illness Consult date: 03/19/24 Chief complaint: Aspiration pneumonia, Hypoxia Narrative: 03/19/2024: This is a new pulmonary consult for aspiration pneumonia. 79-year-old with a history of dementia, CVA, coronary artery disease, CKD, status post PEG 11/13/2023 on tube feedings at the assisted. Regarding his dementia patient is nonverbal and to my exam today did not follow any verbal commands. Patient has had multiple emergency room department visits and hospitalizations for PEG tube removal as he pulls this out at the assisted. On 03/18/2024 the patient vomited at the assisted with a witnessed aspiration. They attempted to clear his airway but he was hypoxic and they gave him supplemental oxygen and he was transferred to the emergency department. In the emergency department he had copious secretions with difficulty coughing. Deep suction cleared his secretions and improved his respiratory status. He required 6 L nasal cannula in the emergency department with saturations 96%. Blood pressure 120/81, heart rate 102. White blood cell count 9.7, creatinine 1.2, BUN 47, COVID influenza and RSV RT PCR studies negative. Chest x-ray showed right lung infiltrate. CT of the chest showed posterior right upper lobe, right lower lobe infiltrates, right middle lobe infiltrates as well with some debris in the right middle lobe and right lower lobe. Patient was admitted for aspiration pneumonia and started on ceftriaxone, azithromycin and given vancomycin. DuoNebs were initiated. 03/19/2024: the daytime nurse told me that he had to be suctioned with a Yankauer 2 or 3 times throughout the night and also had deep suctioning through the nose through the night. She related there was a small amount of blood. When I saw the patient today is nonverbal, he does not cough when I requested him to cough. He was on 4 L nasal cannula with saturations 98%. I decreased him to room air and after 8 minutes his saturations remain 96%. I did use yankour and cleared oral secretions from his mouth. He had no upper airway rhonchorous sounds. His white blood cell count is 11.6, his creatinine is 1.2 with a BUN of 40, his MRSA nasal swab PCR is negative. DATA: EXAMINATION:CT diagnostic chest wo con DATE: 03/18/2024 17:46 INDICATION: Pneumonia. Abnormal chest radiographs. TECHNIQUE: Computed tomography (CT) of the chest was performed without intravenous contrast. Automated exposure control and iterative reconstruction technique were employed. The dose-length product (DLP) was 157.84 mGy-cm. COMPARISON: Chest single view 03/18/2024 FINDINGS: There is moderate emphysema. There is mild scarring at left lung apex. There are airspace opacities in all right lung lobes with a posterior lower lung predominance, consistent with pneumonia. Calcified bilateral lung nodules and calcified right hilar lymph nodes are consistent with old granulomatous disease. There is a 5 mm nodule in left upper lobe, likely benign. There is material in the bronchi in right middle lobe and right lower lobe. There is mild dependent atelectasis in left lower lobe. No pleural effusion. The heart size is normal. No pericardial effusion. There is mild mediastinal lymphadenopathy. A gastrostomy tube is partially visualized. There is a chronic compression fracture of L2. There are bridging endplate osteophytes at multiple levels in the spine, consistent with diffuse idiopathic skeletal hyperostosis (DISH). IMPRESSION: 1. Right-sided pneumonia with a posterior and lower lung predominance. 2. Material in the right middle lobe and right lower lobe bronchi, which may be mucous plugging or aspirated material. 3. Moderate emphysema. 4. Mild mediastinal lymphadenopathy, likely reactive. Review of Systems 2 Review of Systems: ROS unobtainable: Yes unobtainable due to mental status [facility] Past Medical History Medical History (Updated 03/18/24 @ 22:33 by Nissa Greer DO) Non-STEMI (non-ST elevated myocardial infarction) Dyslipidemia COPD (chronic obstructive pulmonary disease) Vasomotor rhinitis Dementia Hx of malignant neoplasm of prostate Dysphagia causing pulmonary aspiration with swallowing Status post G-tube placement October 2023 Malnutrition Acute non-ST elevation myocardial infarction (NSTEMI) (03/2023) PVD (peripheral vascular disease) Erectile dysfunction Unspecified iridocyclitis Primary open-angle glaucoma, bilateral, stage unspecified Chronic kidney disease, stage 3 (moderate) Essential (primary) hypertension Surgical History Surgical History (Updated 03/18/24 @ 22:27 by Nissa Greer DO) History of colonoscopy with polypectomy Family History Family History Father Carcinoma of colon Patient's father is Family history of malignant neoplasm Mother Patient's mother is Family history unknown Social History Social History (Updated 03/18/24 @ 22:32 by Nissa Greer DO) Social History: Code status: Full code Healthcare power of steward/stewardess banquet: Zoe Lane (sister) Smoking packs per day: 1 Smoking cigarettes per day: 20.0 Years smoked: 60 Smoking pack-years: 60.00 Smoking status: Former smoker Tobacco type: cigarettes Second hand tobacco smoke exposure: No Alcohol intake: never Alcohol use details: social Substance use: never Substance use type: does not use Lack of Transportation: YES Lack of Food: Never True Current Housing: I Have Housing Concerned About Future Housing: No Difficulty Paying Gas/Electric Bills: No Difficulty Paying for Meds: No Currently Unemployed: No Education: High School Diploma/GED Difficulty w/ Childcare or Family Care: No Living arrangements: with family Spiritual care concerns: No Meds Home Medications and Allergies Home Medications ?Medication ?Instructions ?Recorded ?Confirmed ?Type cyanocobalamin (vitamin B-12) 1,000 mcg feeding tube DAILY 04/03/21 03/18/24 History 1,000 mcg tablet memantine 10 mg tablet 10 mg feeding tube DAILY 04/03/21 03/18/24 History aspirin 81 mg tablet,delayed 81 mg feeding tube DAILY 06/14/22 03/18/24 History release (Adult Aspirin Regimen) cetirizine 10 mg tablet 10 mg feeding tube DAILY PRN 06/14/22 03/18/24 History Congestion ipratropium bromide 21 mcg (0.03 See Rx Instructions .Route 06/14/22 03/18/24 Rx %) nasal spray .COMPLEX #90 mL thiamine HCl (vitamin B1) 250 mg 250 mg PO DAILY 03/28/23 03/18/24 History tablet betaxolol 0.5 % eye drops 1 drp EACH EYE BID 11/07/23 03/18/24 History bisacodyl 10 mg rectal suppository 10 mg RECTAL DAILY PRN Constipation 11/07/23 03/18/24 History magnesium citrate (Citroma oral 300 ml feeding tube DAILY PRN 11/07/23 03/18/24 History solution) Constipation magnesium hydroxide 400 mg/5 mL 30 ml feeding tube DAILY PRN 11/07/23 03/18/24 History oral suspension (Milk of Magnesia) Constipation sodium phosphates 19 gram-7 118 ml RECTAL ONCE PRN Constipation 11/07/23 03/18/24 History gram/118 mL enema (Fleet Enema) docusate sodium 50 mg/5 mL oral 100 mg (10 mL) feeding tube Q12HR 11/14/23 03/18/24 Rx liquid #1,000 mL Saccharomyces boulardii 250 mg 250 mg feeding tube BID 03/18/24 03/18/24 History capsule acetaminophen 325 mg capsule 650 mg feeding tube Q4H PRN fever 03/18/24 03/18/24 History or pain amino acids-protein hydrolysate 15 See Rx Instructions feeding tube 03/18/24 03/18/24 History gram-100 kcal/30 mL oral liquid DAILY (Pro-Stat Sugar Free) atorvastatin 20 mg tablet 20 mg feeding tube QPM 03/18/24 03/18/24 History ceftriaxone 1 gram solution for 1 g IM Q24H pneumonitis 03/18/24 03/18/24 History injection cholecalciferol (vitamin D3) 1,250 50,000 unit feeding tube 2XW 03/18/24 03/18/24 History mcg (50,000 unit) tablet donepezil 5 mg tablet (Aricept) 5 mg feeding tube HS 03/18/24 03/18/24 History doxazosin 1 mg tablet 1 mg feeding tube QPM 03/18/24 03/18/24 History hydroxyzine pamoate 25 mg capsule 25 mg feeding tube Q12H 03/18/24 03/18/24 History ipratropium 0.5 mg-albuterol 3 mg 3 ml inhalation Q6H PRN shortness 03/18/24 03/18/24 History (2.5 mg base)/3 mL nebulization of breath or wheezing soln lidocaine (PF) 10 mg/mL (1 %) 3 ml IM HS give with Rocephin 03/18/24 03/18/24 History injection solution thiamine HCl (vitamin B1) 100 mg 150 mg feeding tube DAILY 03/18/24 03/18/24 History tablet Allergies Allergy/AdvReac Type Severity Reaction Status Date / Time No Known Allergies Allergy Unknown Verified 03/18/24 16:16 Vital Signs Vital Signs - 24 hr 03/18/24 15:36 03/18/24 15:53 03/18/24 16:02 Temperature 37.2 C Pulse Rate 102 H 102 H 103 H Respiratory Rate 23 H 26 H 28 H Blood Pressure 120/81 Pulse Oximetry 96 Oxygen Delivery Nasal Cannula Oxygen Flow Rate 6 03/18/24 17:12 03/18/24 18:12 03/18/24 19:49 Temperature 37.0 C Pulse Rate 103 H 86 Respiratory Rate 18 18 Blood Pressure 99/75 L 95/50 L Pulse Oximetry 95 95 100 Oxygen Delivery Nasal Cannula Oxygen Flow Rate 5 03/18/24 20:00 03/18/24 21:00 03/18/24 21:03 Temperature Pulse Rate 96 110 H Respiratory Rate 26 H Blood Pressure Pulse Oximetry 95 Oxygen Delivery Nasal Cannula Oxygen Flow Rate 4.5 03/18/24 21:18 03/18/24 22:00 03/19/24 00:00 Temperature 36.6 C Pulse Rate 104 H 93 99 Respiratory Rate 26 H 18 Blood Pressure 123/65 Pulse Oximetry 95 Oxygen Delivery Oxygen Flow Rate 03/19/24 00:29 03/19/24 00:44 03/19/24 04:00 Temperature Pulse Rate 110 H 102 H 99 Respiratory Rate 28 H 24 H Blood Pressure Pulse Oximetry Oxygen Delivery Oxygen Flow Rate 03/19/24 04:01 03/19/24 04:13 03/19/24 06:00 Temperature 36.8 C Pulse Rate 89 99 101 H Respiratory Rate 23 H 24 H 18 Blood Pressure 95/56 L Pulse Oximetry 96 Oxygen Delivery Oxygen Flow Rate 03/19/24 06:38 03/19/24 06:47 Temperature Pulse Rate 101 H 102 H Respiratory Rate 24 H 24 H Blood Pressure Pulse Oximetry Oxygen Delivery Oxygen Flow Rate Exam 2 Const: General: comfortable and no acute distress O rientation/consciousness: oriented to person, oriented to place and oriented to time Other: does not follow commands HENMT: Head: normal to inspection Ears: hearing grossly normal bilaterally Eyes: General: appearance normal, both eyes and all related structures Neck: Neck: normal visual inspection Chest: Chest palpation & inspection: normal inspection of the chest Resp: Effort & Inspection: normal respiratory effort and able to speak in complete sentences Auscultation: crackles, no rales, no rhonchi, no wheezes and lung sounds not diminished Other: Does not follow commands to take a deep breath on request Cardio: Jugular venous distension: no JVD GI: Inspection: normal to inspection GI Palp: No abdominal tenderness O ther: peg in place Skin: General skin exam: normal color Neuro: Other: tracks with eyes, attempts to mouth words at times, does not follow any verbal commands. Extrem: General: normal to inspection Other: No edema Psych: Appearance: grossly normal Results Laboratory Findings 03/19/24 05:24 03/19/24 05:24 Abnormal lab findings: Abnormal Labs 03/18/24 03/19/24 16:48 05:24 WBC 11.6 H RBC 3.88 L Hgb 12.0 L D Hct 36.1 L MPV 12.8 H 12.8 H Band Neutrophils % 23 H 21 H Lymphocytes % (Manual) 9.0 L 7 L Abs Neuts (Manual) 8.24 H 10.32 H Abs Lymphs (Manual) 0.87 L 0.81 L Chloride 113 H Carbon Dioxide 33 H Anion Gap 3 L BUN 47 H D 40 H Glucose 130 H 121 H AST 136 H 103 H ALT 399 H 248 H Alkaline Phosphatase 260 H 177 H Total Protein 6.0 L Albumin 3.0 L Diagnostic Findings Additional studies: ITS Impressions Chest X-Ray 03/18/24 16:04 IMPRESSION: right mid and lower zone pneumonia. Prominent both avni more on the right side. If clinically warranted CT is advised for further evaluation. Chest CT 03/18/24 17:48
--- NOTE | 2024-03-19 10:28 | P.PNIM_ITS ---
Progress Note: A&P Assessment and Plan (1) Sepsis: Qualifiers: Sepsis type: sepsis due to unspecified organism Sepsis acute organ dysfunction status: with acute organ dysfunction Severe sepsis acute organ dysfunction type: acute respiratory failure Acute respiratory failure type: with hypoxia Severe sepsis shock status: without septic shock Qualified Code(s): A41.9 - Sepsis, unspecified organism; R65.20 - Severe sepsis without septic shock; J96.01 - Acute respiratory failure with hypoxia Code(s): A41.9 - Sepsis, unspecified organism Status: Resolved Assessment and Plan: * Concern for aspiration PNA. * Continue IV abx * Monitor labs * Trend vitals * Not meeting shock criteria. * Consult Pulmonology, Dr. Dorsey, following along with medicine. We appreciate his input and recommendations. * Change abx to Unasyn. MRSA negative. * Blood cultures pending * Supplemental oxygen as needed * Resolved sepsis classification. (2) Aspiration pneumonia: Qualifiers: Aspiration pneumonia type: unspecified Laterality: right Lung location: unspecified part of lung Qualified Code(s): J69.0 - Pneumonitis due to inhalation of food and vomit Code(s): J69.0 - Pneumonitis due to inhalation of food and vomit Status: Acute Assessment and Plan: * See #1 * No plans to do bronchoscopy at this time. No lobar collapse. * Dr. Dorsey plans to continue to monitor. (3) COPD (chronic obstructive pulmonary disease): Qualifiers: COPD type: COPD with acute lower respiratory infection Qualified Code(s): J44.0 - Chronic obstructive pulmonary disease with (acute) lower respir atory infection Code(s): J44.9 - Chronic obstructive pulmonary disease, unspecified Status: Acute Assessment and Plan: * Continue Duoneb * Monitor sats and VS. * See #1 and #2 plans. (4) AMS (altered mental status): Qualifiers: Altered mental status type: unspecified Qualified Code(s): R41.82 - Altered mental status, unspecified Code(s): R41.82 - Altered mental status, unspecified Status: Chronic Assessment and Plan: * Pt appears to be at baseline mental functioning. (5) Transaminitis: Code(s): R74.01 - Elevation of levels of liver transaminase levels Status: Chronic Assessment and Plan: * Chronically elevated. * Non-specific and no further increase in trending. (6) Dementia: Qualifiers: Dementia type: unspecified type Dementia severity: severe Dementia behavioral or psychological symptom: unspecified whether behavioral, psychotic, or mood disturbance or anxiety Qualified Code(s): F03.C0 - Unspecified dementia, severe, without behavioral disturbance, psychotic disturbance, mood disturbance, and anxiety Code(s): F03.90 - Unspecified dementia, unspecified severity, without behavioral disturbance, psychotic disturbance, mood disturbance, and anxiety Status: Chronic Assessment and Plan: * Continue home meds of Aricept. * Chronic. * Appears to be at baseline. Time Spent With Patient Time with patient: 15 - 25 minutes Subjective Date/time seen: 03/19/24 0830 Interval history: This pt was examined at the bedside today. He has dementia and cannot give any meaningful hx or information. He was admitted for a PNA that is presumed to be aspiration and AMS, although well known to this provider, he appears to be at his mental baseline. Wound nurses are at bedside upon my entry into the room making recommendations regarding two stage 1 wounds to the right hip bony prominence. Review of Systems Review of Systems: ROS unobtainable: Yes unobtainable due to mental status Exam Narrative: CONSTITUTIONAL: Nonverbal, male pt sitting/lying in bed at this time in no acute distress. HENMT: head is atraumatic and normocephalic. Poor oral hygiene present. Dry MM. NECK: Turns neck in a supple manner without any noted deficits. RESPIRATORY: Crackles present BLL, Poor effort for inspiration and does not follow commands. CARDIO: RRR, S1 and S2 present. No S3, S4, m,r,g,h GI: Soft, NT, BS present x4 quads without any distention. No peritoneal signs. : Incontinent SKIN: Stage 1 wound x2 to the right hip. Wound nurses at the bedside and they are advising a mepilex padded dressing. Small skin tear also to right upper thigh posteriorly. NEURO: At baseline without any focal deficits. Objective Data Vital Signs Vital Signs: Vital Signs - 24 hr 03/18/24 15:36 03/18/24 15:53 03/18/24 16:02 Temperature 99.0 F Pulse Rate 102 H 102 H 103 H Respiratory Rate 23 H 26 H 28 H Blood Pressure 120/81 Pulse Oximetry 96 Oxygen Delivery Nasal Cannula Oxygen Flow Rate 6 03/18/24 17:12 03/18/24 18:12 03/18/24 19:49 Temperature 98.6 F Pulse Rate 103 H 86 Respiratory Rate 18 18 Blood Pressure 99/75 L 95/50 L Pulse Oximetry 95 95 100 Oxygen Delivery Nasal Cannula Oxygen Flow Rate 5 03/18/24 20:00 03/18/24 21:00 03/18/24 21:03 Temperature Pulse Rate 96 110 H Respiratory Rate 26 H Blood Pressure Pulse Oximetry 95 Oxygen Delivery Nasal Cannula Oxygen Flow Rate 4.5 03/18/24 21:18 03/18/24 22:00 03/19/24 00:00 Temperature 97.9 F Pulse Rate 104 H 93 99 Respiratory Rate 26 H 18 Blood Pressure 123/65 Pulse Oximetry 95 Oxygen Delivery Oxygen Flow Rate 03/19/24 00:29 03/19/24 00:44 03/19/24 04:00 Temperature Pulse Rate 110 H 102 H 99 Respiratory Rate 28 H 24 H Blood Pressure Pulse Oximetry Oxygen Delivery Oxygen Flow Rate 03/19/24 04:01 03/19/24 04:13 03/19/24 06:00 Temperature 98.2 F Pulse Rate 89 99 101 H Respiratory Rate 23 H 24 H 18 Blood Pressure 95/56 L Pulse Oximetry 96 Oxygen Delivery Oxygen Flow Rate 03/19/24 06:38 03/19/24 06:47 Temperature Pulse Rate 101 H 102 H Respiratory Rate 24 H 24 H Blood Pressure Pulse Oximetry Oxygen Delivery Oxygen Flow Rate Intake/Output Intake/Output: Intake & Output 03/16/24 03/17/24 03/18/24 03/19/24 23:59 23:59 23:59 23:59 Intake Total 50 1000 Balance 50 1000 Meds/Results Medications: Active Medications Generic Name Dose Route Start Last Admin Trade Name Freq PRN Reason Stop Dose Admin Acetaminophen 650 mg 03/18/24 22:33 Acetaminophen 325 Mg Tablet FEED TUBE Q4H PRN fever or pain 1-3 Albuterol 2.5 mg 03/18/24 20:00 03/19/24 06:37 Albuterol Sulfate Neb 2.5 Mg/3 Ml Inh INHALATION 2.5 mg Q4HRT MIRNA Administration Aspirin 81 mg 03/19/24 09:00 03/19/24 09:32 Aspirin 81 Mg Enteric Tablet PO 81 mg DAILY MIRNA Administration Atorvastatin Calcium 20 mg 03/19/24 18:00 Atorvastatin 20 Mg Tablet FEED TUBE QPM MIRNA Bisacodyl 10 mg 03/18/24 22:33 Bisacodyl 10 Mg Suppository RECTAL DAILY PRN Constipation Cyanocobalamin 1,000 mcg 03/19/24 09:00 03/19/24 09:32 Cyanocobalamin 1,000 Mcg Tablet FEED TUBE 1,000 mcg DAILY MIRNA Administration Docusate Sodium 100 mg 03/19/24 09:00 03/19/24 09:32 Docusate Sodium Liq 100 Mg/10 Ml Udc FEED TUBE 100 mg Q12HR MIRNA Administration Donepezil HCl 5 mg 03/19/24 21:00 Donepezil Hcl 5 Mg Tablet PO HS MIRNA Doxazosin Mesylate 1 mg 03/19/24 18:00 Doxazosin Mesylate 1 Mg Tablet FEED TUBE QPM MIRNA Heparin Sodium (Porcine) 5,000 units 03/19/24 09:00 03/19/24 09:32 Heparin Sodium 5,000 Units/Ml Vial SUB-Q 5,000 units Q12HR MIRNA Administration Hydroxyzine Pamoate 25 mg 03/18/24 22:45 03/19/24 09:31 Hydroxyzine Pamoate 25 Mg Capsule FEED TUBE 25 mg Q12HR MIRNA Administration Sodium Chloride 1,000 mls @ 100 mls/hr 03/18/24 20:10 03/19/24 09:29 Normal Saline Iv IV CONT 100 mls/hr .Q10H MIRNA Administration Ampicillin Sodium/Sulbactam Sodium 3 gm in 100 mls @ 200 mls/hr 03/19/24 10:15 Unasyn 3 Gm/Ns 100 Ml IVPB Q6H MIRNA Ipratropium Gleason 0.5 mg 03/18/24 20:00 03/19/24 06:37 Ipratropium Br 0.02% Inh Soln 0.5 Mg/2.5 Ml Vial INHALATION 0.5 mg Q4HRT MIRNA Administration Loratadine 10 mg 03/18/24 22:40 Loratadine 10 Mg Tablet FEED TUBE DAILY PRN Congestion Magnesium Hydroxide 30 ml 03/18/24 22:33 Magnesium Hydroxide Susp 30 Ml Udc FEED TUBE DAILY PRN Constipation Miscellaneous Information 0 each 03/18/24 00:01 Betaxolol Nonform Can Pt Bring From Home?? XX 04/17/24 00:00 CLARIFY MIRNA Miscellaneous Information 0 each 03/18/24 00:01 Prostat Sf Called Floor Nurse To Check With Dietary XX 04/17/24 00:00 CLARIFY MIRNA Non-Formulary Medication 0 each 03/19/24 09:00 Amino Acids-Protein Hydrolys [Pro-Stat Sugar Free] FEED TUBE 04/18/24 08:59 DAILY MIRNA Non-Formulary Medication 1 drop 03/19/24 09:00 Betaxolol EACH EYE 04/18/24 08:59 BID MIRNA Saccharomyces Boulardii 250 mg 03/19/24 09:00 03/19/24 09:32 Saccharomyces Boulardii 250 Mg Capsule FEED TUBE 250 mg BID MIRNA Administration Radiology Results: ITS Impressions Chest CT 03/18/24 17:48 IMPRESSION: 1. Right-sided pneumonia with a posterior and lower lung predominance. 2. Material in the right middle lobe and right lower lobe bronchi, which may be mucous plugging or aspirated material. 3. Moderate emphysema. 4. Mild mediastinal lymphadenopathy, likely reactive. Labs Labs: Laboratory Results - last 24 hr 03/18/24 03/18/24 03/19/24 16:48 17:43 05:24 WBC 9.7 11.6 H RBC 4.98 3.88 L Hgb 15.2 D 12.0 L D Hct 46.1 36.1 L MCV 92.6 93.0 MCH 30.5 30.9 MCHC 33.0 33.2 RDW 13.8 13.8 Plt Count 205 161 MPV 12.8 H 12.8 H Immature Gran % (Auto) Not Reportable Not Reportable Neut % (Auto) Not Reportable Not Reportable Lymph % (Auto) Not Reportable Not Reportable [place] % (Auto) Not Reportable Not Reportable Eos % (Auto) Not Reportable Not Reportable Baso % (Auto) Not Reportable Not Reportable Lymph # (Auto) Not Reportable Not Reportable [place] # (Auto) Not Reportable Not Reportable Eos # (Auto) Not Reportable Not Reportable Baso # (Auto) Not Reportable Not Reportable Abs Immat Gran (auto) Not Reportable Not Reportable Absolute Neuts (auto) Not Reportable Not Reportable Absolute Nucleated RBC Not Reportable Not Reportable Total Counted 100 100 Neutrophils % (Manual) 62 68 Band Neutrophils % 23 H 21 H Lymphocytes % (Manual) 9.0 L 7 L Monocytes % (Manual) 6 4 Nucleated RBC % Not Reportable Not Reportable Abs Neuts (Manual) 8.24 H 10.32 H Abs Lymphs (Manual) 0.87 L 0.81 L Abs Monocytes (Manual) 0.58 0.46 Nucleated RBCs 1 Platelet Estimate Adequate Adequate Anisocytosis 1+ 1+ Schistocytes None seen None seen Sodium 143 145 Potassium 3.5 3.5 Chloride 106 113 H Carbon Dioxide 33 H 29 Anion Gap 4 3 L BUN 47 H D 40 H Creatinine 1.20 1.20 Estim Creat Clear Calc 40 40 Estimated GFR > 60 > 60 Glucose 130 H 121 H Calcium 10.1 9.0 Total Bilirubin 0.9 0.8 AST 136 H 103 H ALT 399 H 248 H Alkaline Phosphatase 260 H 177 H Total Protein 8.0 6.0 L Albumin 4.0 3.0 L Nasal MRSA (PCR) Not detected Influenza A (RT-PCR) Negative Influenza B (RT-PCR) Negative RSV (RT-PCR) Negative SARS-CoV-2 RNA (RT-PCR) Negative Quality VTE Prophylaxis VTE prophylaxis: pharmacologic ordered
[2024-03-19] MEDS: AMPICILLIN SULB 3 GM/NS 100 ML 3 GM/100 ML VIAL IVPB ×2 (11:26→17:33)
[2024-03-19 11:51] LABS: Glucose Point of Care 115 mg/dl (65-105)
[2024-03-19] MEDS: IPRATROPIUM 0.5 MG/ALBUTEROL SULFATE 2.5 MG AMPUL.NEB 3 ML INHALATION ×3 (15:48→23:33)
[2024-03-19] MEDS: ATORVASTATIN 20 MG TABLET FEED TUBE (17:33)
[2024-03-19] MEDS: DOXAZOSIN MESYLATE 1 MG TABLET FEED TUBE (17:33)
[2024-03-19 18:18] LABS: Glucose Point of Care 108 mg/dl (65-105)
[2024-03-19] MEDS: DONEPEZIL HCL 5 MG TABLET PO (20:44)
[2024-03-20] VITALS (23 sets, daily range): BP systolic 103–113; BP diastolic 63–71; PULSE 77–99; RESP 18–20; TEMP 36.6–37.4; O2SAT 94–96
[2024-03-20] MEDS: AMPICILLIN SULB 3 GM/NS 100 ML 3 GM/100 ML VIAL IVPB ×4 (00:27→18:33)
[2024-03-20 01:38] LABS: Glucose Point of Care 136 mg/dl (65-105)
[2024-03-20] MEDS: IPRATROPIUM 0.5 MG/ALBUTEROL SULFATE 2.5 MG AMPUL.NEB 3 ML INHALATION ×6 (04:44→23:04)
[2024-03-20 05:50] LABS: Basophils Percent Auto 0.1 % (0.2-1.2); Eosinophils Absolute Auto 0.1 K/mm3 (0-0.3); Eosinophils Percent Auto 0.6 % (0-4.4); Hematocrit 35.3 % (42.0-52.0); Hemoglobin 11.3 g/dL (14.0-18.0); Immature Granulocyte Absolute 0.04 K/mm3 (0.00-0.031); Immature Granulocyte Percent A 0.5 % (0-0.5); Lymphocytes Absolute Auto 0.71 K/mm3 (0.9-3.2); Lymphocytes Percent Auto 8.6 % (18.3-44.2); Mean Corpuscular Hemoglobin 30.3 pg (26-34); Mean Corpuscular Volume 94.6 fl (80-100); Mean Platelet Volume 12.7 fl (7.4-10.4); Monocytes Absolute Auto 0.5 K/mm3 (0.1-0.6); Monocytes Percent Auto 5.8 % (2.6-8.5); Neutrophils Absolute Auto 6.9 K/mm3 (1.3-6.7); Neutrophils Percent Auto 84.4 % (45.5-73.1); Platelet Count Result 141 k/mm3 (150-375); Red Blood Count 3.73 M/mm3 (4.6-6.20); Red Cell Distribution Width 13.7 % (11.5-14.5); White Blood Count 8.2 K/mm3 (4.5-10.0)
[2024-03-20 05:59] LABS: Alanine Aminotransferase 181 U/L (6-50); Albumin Level 2.8 g/dL (3.5-5.1); Alkaline Phosphatase 166 U/L (38-126); Anion Gap 1 mmol/L (4-12); Aspartate Amino Transferase 111 U/L (17-59); Bilirubin,Total 0.5 mg/dL (0.2-1.3); Blood Urea Nitrogen 35 mg/dL (9-20); Calcium 8.9 mg/dL (8.4-10.2); Carbon Dioxide 31 mmol/L (22-30); Chloride 114 mmol/L (98-107); Estimated CRCL calculation 61 ml/min; Estimated Glomerular Filt Rate > 60; Glucose 108 mg/dL (65-110); Magnesium 2.3 mg/dL (1.6-2.3); Potassium 3.4 mmol/L (3.4-5.0); Sodium 146 mmol/L (137-145)
[2024-03-20] MEDS: SODIUM CHLORIDE 0.9% IV 1,000 ML 100 ML IV CONT ×2 (06:13→16:46)
[2024-03-20 06:30] LABS: Glucose Point of Care 126 mg/dl (65-105)
[2024-03-20] MEDS: DOCUSATE SODIUM LIQ 100 MG/10 ML UDC FEED TUBE ×2 (10:24→20:15)
[2024-03-20] MEDS: SACCHAROMYCES BOULARDII 250 MG CAPSULE FEED TUBE ×2 (10:24→18:33)
[2024-03-20] MEDS: hydrOXYzine pamoate 25 MG CAPSULE FEED TUBE ×2 (10:25→20:16)
[2024-03-20] MEDS: CYANOCOBALAMIN 1,000 MCG TABLET 1000 MCG FEED TUBE (10:25)
[2024-03-20] MEDS: HEPARIN SODIUM 5,000 UNITS/ML VIAL 5000 UNITS SUB-Q ×2 (10:25→20:16)
[2024-03-20] MEDS: ASPIRIN 81 MG CHEWABLE TABLET FEED TUBE (10:25)
[2024-03-20] MEDS: TIMOLOL MALEATE 0.5% OP SOLN 5 ML BOTTLE 1 DROP EACH EYE ×2 (10:26→20:16)
--- NOTE | 2024-03-20 10:34 | PM.IMPN ---
Progress Note: A&P Assessment and Plan (1) Sepsis: Qualifiers: Sepsis type: sepsis due to unspecified organism Sepsis acute organ dysfunction status: with acute organ dysfunction Severe sepsis acute organ dysfunction type: acute respiratory failure Acute respiratory failure type: with hypoxia Severe sepsis shock status: without septic shock Qualified Code(s): A41.9 - Sepsis, unspecified organism; R65.20 - Severe sepsis without septic shock; J96.01 - Acute respiratory failure with hypoxia Code(s): A41.9 - Sepsis, unspecified organism Status: Resolved (2) Aspiration pneumonia: Qualifiers: Aspiration pneumonia type: unspecified Laterality: right Lung location: unspecified part of lung Qualified Code(s): J69.0 - Pneumonitis due to inhalation of food and vomit Code(s): J69.0 - Pneumonitis due to inhalation of food and vomit Status: Acute (3) COPD (chronic obstructive pulmonary disease): Qualifiers: COPD type: COPD with acute lower respiratory infection Qualified Code(s): J44.0 - Chronic obstructive pulmonary disease with (acute) lower respiratory infection Code(s): J44.9 - Chronic obstructive pulmonary disease, unspecified Status: Acute (4) AMS (altered mental status): Qualifiers: Altered mental status type: unspecified Qualified Code(s): R41.82 - Altered mental status, unspecified Code(s): R41.82 - Altered mental status, unspecified Status: Chronic (5) Transaminitis: Code(s): R74.01 - Elevation of levels of liver transaminase levels Status: Chronic (6) Dementia: Qualifiers: Dementia type: unspecified type Dementia severity: severe Dementia behavioral or psychological symptom: unspecified whether behavioral, psychotic, or mood disturbance or anxiety Qualified Code(s): F03.C0 - Unspecified dementia, severe, without behavioral disturbance, psychotic disturbance, mood disturbance, and anxiety Code(s): F03.90 - Unspecified dementia, unspecified severity, without behavioral disturbance, psychotic disturbance, mood disturbance, and anxiety Status: Chronic Plan Sepsis Patient meets sepsis criteria with tachycardia, tachypnea and leukocytosis in the setting of acute aspiration with aspiration pneumonia and multiple lobes a right lung with associated hypoxic respiratory failure. BP's soft, 95/50 on admission, normalized with fluids --Blood cultures negative x2 Acute hypoxic respiratory failure Aspiration pneumonia Started empiric rocephin IM outpatient, azithromycin, Vancomycin, changed to Unasyn. Weaned off oxygen. MRSA PCR was negative. Still has a coarse upper airway. Pulmonary following, appreciate recommendations --Continue Unasyn --Aspiration precautions, elevate HOB --NPO. Dry mouth, add artificial saliva, frequent oral care --Suctioning prn COPD Pulmononary following, appreciate recommendations Dementia Hx G-tube, malnutrition Patient does have transaminitis but this seems to be somewhat chronic with transaminases improved from prior hospital stay. Will repeat CMP and monitor. CKD Creatinine 1.2 on admission, improved to 0.8 with fluids Continue G-tube feeds with free water flushes as discussed above will monitor strict I&O's. Transaminitis Alk phos 260>166, ALT 399>181, AST 136> 111, TBili 0.9<0.8 Patient has been admitted as observation status. Time Spent With Patient Time: 59 minutes Subjective Date/time seen: 03/20/24 10:34 Interval history: Weaned to RA. Coarse respirations, upper airway Unable to give a history but stable overnight. Review of Systems Review of Systems: ROS unobtainable: Yes unobtainable due to medical condition (Dementia) and unobtainable due to mental status Exam Narrative: CONSTITUTIONAL: Nonverbal, male pt sitting/lying in bed at this time in no acute distress. HENMT: head is atraumatic and normocephalic. Poor oral hygiene present. Dry MM. Coarse upper airway NECK: Turns neck in a supple manner without any noted deficits. RESPIRATORY: Crackles present BLL, Poor effort for inspiration and does not follow commands. CARDIO: RRR, S1 and S2 present. No S3, S4, m,r,g,h GI: Soft, NT, BS present x4 quads without any distention. No peritoneal signs. : Incontinent SKIN: Stage 1 wound x2 to the right hip. Wound nurses at the bedside and they are advising a mepilex padded dressing. Small skin tear also to right upper thigh posteriorly. NEURO: At baseline, moves all extremities, nonverbal Objective Data Vital Signs Vital Signs: Vital Signs - 24 hr 03/19/24 11:36 03/19/24 11:45 03/19/24 12:00 Temperature Pulse Rate 90 89 91 Respiratory Rate 21 H 21 H Blood Pressure Pulse Oximetry Oxygen Delivery Fraction of Inspired Oxygen 03/19/24 14:00 03/19/24 15:48 03/19/24 15:55 Temperature 98.1 F Pulse Rate 93 95 99 Respiratory Rate 18 21 H 21 H Blood Pressure 99/61 L Pulse Oximetry 97 Oxygen Delivery Fraction of Inspired Oxygen 03/19/24 16:00 03/19/24 19:54 03/19/24 19:54 Temperature Pulse Rate 99 98 98 Respiratory Rate 20 Blood Pressure Pulse Oximetry 95 Oxygen Delivery Room Air Fraction of Inspired Oxygen 03/19/24 20:00 03/19/24 20:01 03/19/24 20:40 Temperature Pulse Rate 99 99 99 Respiratory Rate 20 20 Blood Pressure Pulse Oximetry 95 Oxygen Delivery Room Air Fraction of Inspired Oxygen 03/19/24 22:00 03/19/24 23:33 03/19/24 23:42 Temperature 98.1 F Pulse Rate 71 91 98 Respiratory Rate 18 20 20 Blood Pressure 96/59 L Pulse Oximetry 90 Oxygen Delivery Fraction of Inspired Oxygen 03/20/24 00:04 03/20/24 04:00 03/20/24 04:45 Temperature Pulse Rate 94 85 86 Respiratory Rate 20 Blood Pressure Pulse Oximetry Oxygen Delivery Fraction of Inspired Oxygen 03/20/24 04:51 03/20/24 06:00 03/20/24 07:30 Temperature 97.9 F Pulse Rate 77 88 Respiratory Rate 20 18 Blood Pressure 113/63 Pulse Oximetry 95 94 Oxygen Delivery Room Air Fraction of Inspired Oxygen 21 03/20/24 07:30 03/20/24 07:37 Temperature Pulse Rate 85 86 Respiratory Rate 18 18 Blood Pressure Pulse Oximetry Oxygen Delivery Fraction of Inspired Oxygen Intake/Output Intake/Output: Intake & Output 03/17/24 03/18/24 03/19/24 03/20/24 23:59 23:59 23:59 23:59 Intake Total 50 2200 1100 Balance 50 2200 1100 Meds/Results Medications: Active Medications Generic Name Dose Route Start Last Admin Trade Name Freq PRN Reason Stop Dose Admin Acetaminophen 650 mg 03/18/24 22:33 Acetaminophen 325 Mg Tablet FEED TUBE Q4H PRN fever or pain 1-3 Albuterol/Ipratropium 3 ml 03/19/24 16:00 03/20/24 07:29 Ipratropium 0.5 Mg/Albuterol Sulfate 2.5 Mg Ampul.Neb 3 Ml INHALATION 3 ml Q4HRT [facility] Administration Aspirin 81 mg 03/20/24 09:00 03/20/24 10:25 Aspirin 81 Mg Chewable Tablet FEED TUBE 81 mg DAILY MIRNA Administration Atorvastatin Calcium 20 mg 03/19/24 18:00 03/19/24 17:33 Atorvastatin 20 Mg Tablet FEED TUBE 20 mg QPM MRINA Administration Bisacodyl 10 mg 03/18/24 22:33 Bisacodyl 10 Mg Suppository RECTAL DAILY PRN Constipation Cyanocobalamin 1,000 mcg 03/19/24 09:00 03/20/24 10:25 Cyanocobalamin 1,000 Mcg Tablet FEED TUBE 1,000 mcg DAILY MIRNA Administration Docusate Sodium 100 mg 03/19/24 09:00 03/20/24 10:24 Docusate Sodium Liq 100 Mg/10 Ml Udc FEED TUBE 100 mg Q12HR MIRNA Administration Donepezil HCl 5 mg 03/19/24 21:00 03/19/24 20:44 Donepezil Hcl 5 Mg Tablet PO 5 mg HS MIRNA Administration Doxazosin Mesylate 1 mg 03/19/24 18:00 03/19/24 17:33 Doxazosin Mesylate 1 Mg Tablet FEED TUBE 1 mg QPM MIRNA Administration Heparin Sodium (Porcine) 5,000 units 03/19/24 09:00 03/20/24 10:25 Heparin Sodium 5,000 Units/Ml Vial SUB-Q 5,000 units Q12HR MIRNA Administration Hydroxyzine Pamoate 25 mg 03/18/24 22:45 03/20/24 10:25 Hydroxyzine Pamoate 25 Mg Capsule FEED TUBE 25 mg Q12HR MIRNA Administration Sodium Chloride 1,000 mls @ 100 mls/hr 03/18/24 20:10 03/20/24 06:13 Normal Saline Iv IV CONT 100 mls/hr .Q10H MIRNA Administration Ampicillin Sodium/Sulbactam Sodium 3 gm in 100 mls @ 200 mls/hr 03/19/24 11:00 03/20/24 05:29 Unasyn 3 Gm/Ns 100 Ml IVPB 200 mls/hr Q6HR MIRNA Administration Loratadine 10 mg 03/18/24 22:40 Loratadine 10 Mg Tablet FEED TUBE DAILY PRN Congestion Magnesium Hydroxide 30 ml 03/18/24 22:33 Magnesium Hydroxide Susp 30 Ml Udc FEED TUBE DAILY PRN Constipation Saccharomyces Boulardii 250 mg 03/19/24 09:00 03/20/24 10:24 Saccharomyces Boulardii 250 Mg Capsule FEED TUBE 250 mg BID MIRNA Administration Timolol Maleate 1 drop 03/20/24 09:50 03/20/24 10:26 Timolol Maleate 0.5% Op Soln 5 Ml Bottle EACH EYE 1 drop Q12HR MIRNA Administration Radiology Results: ITS Impressions Chest CT 03/18/24 17:48 IMPRESSION: 1. Right-sided pneumonia with a posterior and lower lung predominance. 2. Material in the right middle lobe and right lower lobe bronchi, which may be mucous plugging or aspirated material. 3. Moderate emphysema. 4. Mild mediastinal lymphadenopathy, likely reactive. Chest X-Ray 03/19/24 11:03 Impression: 1: Bilateral airspace disease, compatible with pneumonia. Labs Labs: Laboratory Results - last 24 hr 03/19/24 03/19/24 03/20/24 11:46 18:16 00:45 WBC RBC Hgb Hct MCV MCH MCHC RDW Plt Count MPV Immature Gran % (Auto) Neut % (Auto) Lymph % (Auto) [place] % (Auto) Eos % (Auto) Baso % (Auto) Lymph # (Auto) [place] # (Auto) Eos # (Auto) Baso # (Auto) Abs Immat Gran (auto) Absolute Neuts (auto) Absolute Nucleated RBC Nucleated RBC % Sodium Potassium Chloride Carbon Dioxide Anion Gap BUN Creatinine Estim Creat Clear Calc Estimated GFR Glucose POC Capillary Glucose 115 H 108 H 136 H Calcium Magnesium Total Bilirubin AST ALT Alkaline Phosphatase Total Protein Albumin 03/20/24 03/20/24 05:06 06:28 WBC 8.2 RBC 3.73 L Hgb 11.3 L Hct 35.3 L MCV 94.6 MCH 30.3 MCHC 32.0 RDW 13.7 Plt Count 141 L MPV 12.7 H Immature Gran % (Auto) 0.5 Neut % (Auto) 84.4 H Lymph % (Auto) 8.6 L [place] % (Auto) 5.8 Eos % (Auto) 0.6 Baso % (Auto) 0.1 L Lymph # (Auto) 0.71 L [place] # (Auto) 0.5 Eos # (Auto) 0.1 Baso # (Auto) 0.0 Abs Immat Gran (auto) 0.04 H Absolute Neuts (auto) 6.9 H Absolute Nucleated RBC 0.000 Nucleated RBC % 0.0 Sodium 146 H Potassium 3.4 Chloride 114 H Carbon Dioxide 31 H Anion Gap 1 L BUN 35 H Creatinine 0.80 Estim Creat Clear Calc 61 Estimated GFR > 60 Glucose 108 POC Capillary Glucose 126 H Calcium 8.9 Magnesium 2.3 Total Bilirubin 0.5 AST 111 H ALT 181 H Alkaline Phosphatase 166 H Total Protein 6.0 L Albumin 2.8 L Quality VTE Prophylaxis VTE prophylaxis: pharmacologic ordered Hospitalist [facility] Advance Care Plan I have confirmed that the patient's Advanced Care Plan is present, code status is documented, or surrogate decision maker is listed in patient medical record.: Yes Medication Reconciliation I have utilized all available resources to obtain, update and review the patients current medications (includes all prescriptions, OTC, herbals, cannabis, and nutritional supplements).: Yes
--- NOTE | 2024-03-20 11:13 | PCNFU ---
Nutrition Follow-Up Complete: Severe Protein Calorie Malnutrition as related to inadequate protein energy intake a evidenced by significant weight loss of 13% (14 ibs) 4 months, severe subcutanoeous fat loss (orbital fat pads) and severe muscle wasting (temporalis, clavicle). Goal: Meet estimated nutritional needs Patient is progressing towards goal. We will continue current goal. Pt current nutrition is Nepro at 50 ml/hr. Nutrition recommendation: Presource TF once daily. Last recorded weight is 65 kg, up from 62.3 kg on admit. Bowel Motility: +BM reported 03/20 Labs Reviewed: BUN 35, NA 146 Meds Noted:Lipitor Skin: Stage 1 right hip Additional Notes: Patient currently on G tube feedings of Nepro at 50 ml/hr. tube feedings are being tolerated per nursing. Patient is on Prostat at [place]. Orders for Prosource once daily providing an additional 80 kcal and 20 gm protein. Total Nutrition: 2060 kcals/109 gm protein/727 ml water. Flush 200 ml q 4 hours. Will monitor weight, labs, skin, meds, tube feedings every Saturday and Saturday.
--- NOTE | 2024-03-20 11:34 | P.PNPL_ITS ---
Progress Note: A&P Assessment and Plan (1) Aspiration pneumonia: Qualifiers: Aspiration pneumonia type: unspecified Laterality: right Lung location: unspecified part of lung Qualified Code(s): J69.0 - Pneumonitis due to inhalation of food and vomit Code(s): J69.0 - Pneumonitis due to inhalation of food and vomit Status: Acute Plan Patient with a PEG tube on tube feedings and NPO at the intermediate with emesis on 03/18/24 followed by aspiration at the intermediate. He required suctioning at the intermediate in supplemental oxygen. Chest x-ray in the emergency department showed right-sided infiltrates and CT scan of the chest showed posterior right upper lobe, right lower lobe and infiltrates in the right middle lobe all in a dependent area consistent with aspiration. he required 6 L in the emergency department. 03/19/24: When I saw the patient today is nonverbal, he does not cough when I requested him to cough. He was on 4 L nasal cannula with saturations 98%. I decreased him to room air and after 8 minutes his saturations remain 96%. I did use yankour and cleared oral secretions from his mouth. He had no upper airway rhonchorous sounds. His white blood cell count is 11.6, his creatinine is 1.2 with a BUN of 40, his MRSA nasal swab PCR is negative. plan: The patient did aspirate. He is on tube feedings and NPO so he would have not aspirated any solid food particles. He had debris in right lower lobe and right middle lobe airways on his CT scan likely mucous. Chest x-ray today demonstrates no lobar collapse. Patient's oxygenation has improved. There is no need for bronchoscopy at this time. Patient was empirically started on vancomycin, ceftriaxone and azithromycin. His MRSA nasal swab is negative. Will discontinue vancomycin, ceftriaxone and azithromyci nand change the patient to unasyn 3 gm Q 6 hours. Will continue DuoNebs Q 6 as a history of COPD with mild apical predominant centrilobular emphysema on a CT scan of the chest. 03/20/24: patient is nonverbal attempting to mouth words. Patient had rhonchorous breath sounds when I entered the room. I asked him to cough and he did not follow commands. I used a Yankauer and suction thick secretions from the back of his oropharynx. Room air saturations 97%. White blood cell count 8.2, creatinine 0.8, afebrile. Weight is 65 kg. patient is clinically stable. He is now on room air. Leukocytosis has improved. He is afebrile. Plan: Patient is day 3 total antibiotics, day 2 Unasyn. Clinically he is has improved. It should be noted that the patient cannot clear his oral secretions and he is at high risk for subsequent aspiration events. I will check a chest x-ray on 03/21 and if this is stable would be ready for discharge on these pulmonary medications. Augmentin suspension 400 -57/5 ml at 10 ml BID x3 days (to finish a 7 day course of total antibiotics). Discussed with Albertina Camarena, will follow with you. Subjective Date/time seen: 03/20/24 11:34 Interval history: 03/19/2024: This is a new pulmonary consult for aspiration pneumonia. 79-year-old with a history of dementia, CVA, coronary artery disease, CKD, status post PEG 11/13/2023 on tube feedings at the intermediate. Regarding his dementia patient is nonverbal and to my exam today did not follow any verbal commands. Patient has had multiple emergency room department visits and hospitalizations for PEG tube removal as he pulls this out at the intermediate. On 03/18/2024 the patient vomited at the intermediate with a witnessed aspiration. They attempted to clear his airway but he was hypoxic and they gave him supplemental oxygen and he was transferred to the emergency department. In the emergency department he had copious secretions with difficulty coughing. Deep suction cleared his secretions and improved his respiratory status. He required 6 L nasal cannula in the emergency department with saturations 96%. Blood pressure 120/81, heart rate 102. White blood cell count 9.7, creatinine 1.2, BUN 47, COVID influenza and RSV RT PCR studies negative. Chest x-ray showed right lung infiltrate. CT of the chest showed posterior right upper lobe, right lower lobe infiltrates, right middle lobe infiltrates as well with some debris in the right middle lobe and right lower lobe. Patient was admitted for aspiration pneumonia and started on ceftriaxone, azithromycin and given vancomycin. DuoNebs were initiated. 03/19/2024: the daytime nurse told me that he had to be suctioned with a Yankauer 2 or 3 times throughout the night and also had deep suctioning through the nose through the night. She related there was a small amount of blood. When I saw the patient today is nonverbal, he does not cough when I requested him to cough. He was on 4 L nasal cannula with saturations 98%. I decreased him to room air and after 8 minutes his saturations remain 96%. I did use yankour and cleared oral secretions from his mouth. He had no upper airway rhonchorous sounds. His white blood cell count is 11.6, his creatinine is 1.2 with a BUN of 40, his MRSA nasal swab PCR is negative. 03/20/24: patient is nonverbal attempting to mouth words. Patient had rhonchorous breath sounds when I entered the room. I asked him to cough and he did not follow commands. I used a Yankauer and suction thick secretions from the back of his oropharynx. Room air saturations 97%. White blood cell count 8.2, creatinine 0.8, afebrile. Weight is 65 kg. DATA: EXAMINATION:CT diagnostic chest wo con DATE: 03/18/2024 17:46 INDICATION: Pneumonia. Abnormal chest radiographs. TECHNIQUE: Computed tomography (CT) of the chest was performed without intravenous contrast. Automated exposure control and iterative reconstruction technique were employed. The dose-length product (DLP) was 157.84 mGy-cm. COMPARISON: Chest single view 03/18/2024 FINDINGS: There is moderate emphysema. There is mild scarring at left lung apex. There are airspace opacities in all right lung lobes with a posterior lower lung predominance, consistent with pneumonia. Calcified bilateral lung nodules and calcified right hilar lymph nodes are consistent with old granulomatous disease. There is a 5 mm nodule in left upper lobe, likely benign. There is material in the bronchi in right middle lobe and right lower lobe. There is mild dependent atelectasis in left lower lobe. No pleural effusion. The heart size is normal. No pericardial effusion. There is mild mediastinal lymphadenopathy. A gastrostomy tube is partially visualized. There is a chronic compression fracture of L2. There are bridging endplate osteophytes at multiple levels in the spine, consistent with diffuse idiopathic skeletal hyperostosis (DISH). IMPRESSION: 1. Right-sided pneumonia with a posterior and lower lung predominance. 2. Material in the right middle lobe and right lower lobe bronchi, which may be mucous plugging or aspirated material. 3. Moderate emphysema. 4. Mild mediastinal lymphadenopathy, likely reactive. Review of Systems Review of Systems: ROS unobtainable: Yes unobtainable due to mental status Exam Const: General: comfortable and no acute distress Orientation/consciousness: oriented to person, oriented to place and oriented to time Other: does not follow commands HENMT: Head: normal to inspection Ears: hearing grossly normal bilaterally Eyes: General: appearance normal, both eyes and all related structures Neck: Neck: normal visual inspection Chest: Chest palpation & inspection: normal inspection of the chest Resp: Effort & Inspection: normal respiratory effort and able to speak in complete sentences Auscultation: no crackles, no rales, rhonchi, no wheezes and lung sounds not diminished Other: Does not follow commands to take a deep breath on request. Rhonchorous upper airway breath sounds Cardio: Jugular venous distension: no JVD GI: Inspection: normal to inspection Other: peg in place Skin: General skin exam: normal color Neuro: General: oriented to person, oriented to place and oriented to time Other: tracks with eyes, attempts to mouth words at times, does not follow any verbal commands. Extrem: General: normal to inspection Other: No edema Psych: Appearance: grossly normal Objective Data Vital Signs Vital Signs: Vital Signs - 24 hr 03/19/24 11:36 03/19/24 11:45 03/19/24 12:00 Temperature Pulse Rate 90 89 91 Respiratory Rate 21 H 21 H Blood Pressure Pulse Oximetry Oxygen Delivery Fraction of Inspired Oxygen 03/19/24 14:00 03/19/24 15:48 03/19/24 15:55 Temperature 36.7 C Pulse Rate 93 95 99 Respiratory Rate 18 21 H 21 H Blood Pressure 99/61 L Pulse Oximetry 97 Oxygen Delivery Fraction of Inspired Oxygen 03/19/24 16:00 03/19/24 19:54 03/19/24 19:54 Temperature Pulse Rate 99 98 98 Respiratory Rate 20 Blood Pressure Pulse Oximetry 95 Oxygen Delivery Room Air Fraction of Inspired Oxygen 03/19/24 20:00 03/19/24 20:01 03/19/24 20:40 Temperature Pulse Rate 99 99 99 Respiratory Rate 20 20 Blood Pressure Pulse Oximetry 95 Oxygen Delivery Room Air Fraction of Inspired Oxygen 03/19/24 22:00 03/19/24 23:33 03/19/24 23:42 Temperature 36.7 C Pulse Rate 71 91 98 Respiratory Rate 18 20 20 Blood Pressure 96/59 L Pulse Oximetry 90 Oxygen Delivery Fraction of Inspired Oxygen 03/20/24 00:04 03/20/24 04:00 03/20/24 04:45 Temperature Pulse Rate 94 85 86 Respiratory Rate 20 Blood Pressure Pulse Oximetry Oxygen Delivery Fraction of Inspired Oxygen 03/20/24 04:51 03/20/24 06:00 03/20/24 07:30 Temperature 36.6 C Pulse Rate 77 88 Respiratory Rate 20 18 Blood Pressure 113/63 Pulse Oximetry 95 94 Oxygen Delivery Room Air Fraction of Inspired Oxygen 21 03/20/24 07:30 03/20/24 07:37 03/20/24 11:20 Temperature Pulse Rate 85 86 87 Respiratory Rate 18 18 18 Blood Pressure Pulse Oximetry Oxygen Delivery Fraction of Inspired Oxygen 03/20/24 11:26 Temperature Pulse Rate 85 Respiratory Rate 18 Blood Pressure Pulse Oximetry Oxygen Delivery Fraction of Inspired Oxygen Intake/Output Intake/Output: Intake & Output 03/17/24 03/18/24 03/19/24 03/20/24 23:59 23:59 23:59 23:59 Intake Total 50 2200 1100 Balance 50 2200 1100 Meds/Results Medications: Active Medications Generic Name Dose Route Start Last Admin Trade Name Freq PRN Reason Stop Dose Admin Acetaminophen 650 mg 03/18/24 22:33 Acetaminophen 325 Mg Tablet FEED TUBE Q4H PRN fever or pain 1-3 Albuterol/Ipratropium 3 ml 03/19/24 16:00 03/20/24 11:20 Ipratropium 0.5 Mg/Albuterol Sulfate 2.5 Mg Ampul.Neb 3 Ml INHALATION 3 ml Q4HRT MIRNA Administration Aspirin 81 mg 03/20/24 09:00 03/20/24 10:25 Aspirin 81 Mg Chewable Tablet FEED TUBE 81 mg DAILY MIRNA Administration Atorvastatin Calcium 20 mg 03/19/24 18:00 03/19/24 17:33 Atorvastatin 20 Mg Tablet FEED TUBE 20 mg QPM MIRNA Administration Bisacodyl 10 mg 03/18/24 22:33 Bisacodyl 10 Mg Suppository RECTAL DAILY PRN Constipation Cyanocobalamin 1,000 mcg 03/19/24 09:00 03/20/24 10:25 Cyanocobalamin 1,000 Mcg Tablet FEED TUBE 1,000 mcg DAILY MIRNA Administration Docusate Sodium 100 mg 03/19/24 09:00 03/20/24 10:24 Docusate Sodium Liq 100 Mg/10 Ml Udc FEED TUBE 100 mg Q12HR MIRNA Administration Donepezil HCl 5 mg 03/19/24 21:00 03/19/24 20:44 Donepezil Hcl 5 Mg Tablet PO 5 mg HS MIRNA Administration Doxazosin Mesylate 1 mg 03/19/24 18:00 03/19/24 17:33 Doxazosin Mesylate 1 Mg Tablet FEED TUBE 1 mg QPM MIRNA Administration Heparin Sodium (Porcine) 5,000 units 03/19/24 09:00 03/20/24 10:25 Heparin Sodium 5,000 Units/Ml Vial SUB-Q 5,000 units Q12HR MIRNA Administration Hydroxyzine Pamoate 25 mg 03/18/24 22:45 03/20/24 10:25 Hydroxyzine Pamoate 25 Mg Capsule FEED TUBE 25 mg Q12HR MIRNA Administration Sodium Chloride 1,000 mls @ 100 mls/hr 03/18/24 20:10 03/20/24 06:13 Normal Saline Iv IV CONT 100 mls/hr .Q10H MIRNA Administration Ampicillin Sodium/Sulbactam Sodium 3 gm in 100 mls @ 200 mls/hr 03/19/24 11:00 03/20/24 05:29 Unasyn 3 Gm/Ns 100 Ml IVPB 200 mls/hr Q6HR MIRNA Administration Loratadine 10 mg 03/18/24 22:40 Loratadine 10 Mg Tablet FEED TUBE DAILY PRN Congestion Magnesium Hydroxide 30 ml 03/18/24 22:33 Magnesium Hydroxide Susp 30 Ml Udc FEED TUBE DAILY PRN Constipation Saccharomyces Boulardii 250 mg 03/19/24 09:00 03/20/24 10:24 Saccharomyces Boulardii 250 Mg Capsule FEED TUBE 250 mg BID MIRNA Administration Saliva Substitute 10 ml 03/20/24 13:00 Saliva Substitute Rinse 473 Ml Bottle PO QID MIRNA Timolol Maleate 1 drop 03/20/24 09:50 03/20/24 10:26 Timolol Maleate 0.5% Op Soln 5 Ml Bottle EACH EYE 1 drop Q12HR MIRNA Administration Radiology Results: ITS Impressions Chest CT 03/18/24 17:48 IMPRESSION: 1. Right-sided pneumonia with a posterior and lower lung predominance. 2. Material in the right middle lobe and right lower lobe bronchi, which may be mucous plugging or aspirated material. 3. Moderate emphysema. 4. Mild mediastinal lymphadenopathy, likely reactive. Chest X-Ray 03/19/24 11:03 Impression: 1: Bilateral airspace disease, compatible with pneumonia. Labs Labs: Laboratory Results - last 24 hr 03/19/24 03/19/24 03/20/24 11:46 18:16 00:45 WBC RBC Hgb Hct MCV MCH MCHC RDW Plt Count MPV Immature Gran % (Auto) Neut % (Auto) Lymph % (Auto) Cross % (Auto) Eos % (Auto) Baso % (Auto) Lymph # (Auto) Cross # (Auto) Eos # (Auto) Baso # (Auto) Abs Immat Gran (auto) Absolute Neuts (auto) Absolute Nucleated RBC Nucleated RBC % Sodium Potassium Chloride Carbon Dioxide Anion Gap BUN Creatinine Estim Creat Clear Calc Estimated GFR Glucose POC Capillary Glucose 115 H 108 H 136 H Calcium Magnesium Total Bilirubin AST ALT Alkaline Phosphatase Total Protein Albumin 03/20/24 03/20/24 05:06 06:28 WBC 8.2 RBC 3.73 L Hgb 11.3 L Hct 35.3 L MCV 94.6 MCH 30.3 MCHC 32.0 RDW 13.7 Plt Count 141 L MPV 12.7 H Immature Gran % (Auto) 0.5 Neut % (Auto) 84.4 H Lymph % (Auto) 8.6 L Cross % (Auto) 5.8 Eos % (Auto) 0.6 Baso % (Auto) 0.1 L Lymph # (Auto) 0.71 L Cross # (Auto) 0.5 Eos # (Auto) 0.1 Baso # (Auto) 0.0 Abs Immat Gran (auto) 0.04 H Absolute Neuts (auto) 6.9 H Absolute Nucleated RBC 0.000 Nucleated RBC % 0.0 Sodium 146 H Potassium 3.4 Chloride 114 H Carbon Dioxide 31 H Anion Gap 1 L BUN 35 H Creatinine 0.80 Estim Creat Clear Calc 61 Estimated GFR > 60 Glucose 108 POC Capillary Glucose 126 H Calcium 8.9 Magnesium 2.3 Total Bilirubin 0.5 AST 111 H ALT 181 H Alkaline Phosphatase 166 H Total Protein 6.0 L Albumin 2.8 L
[2024-03-20 12:13] LABS: Glucose Point of Care 142 mg/dl (65-105)
[2024-03-20] MEDS: SALIVA SUBSTITUTE RINSE 473 ML BOTTLE 10 ML PO ×2 (12:31→18:33)
[2024-03-20 18:31] LABS: Glucose Point of Care 121 mg/dl (65-105)
[2024-03-20] MEDS: DOXAZOSIN MESYLATE 1 MG TABLET FEED TUBE (18:33)
[2024-03-20] MEDS: ATORVASTATIN 20 MG TABLET FEED TUBE (18:33)
[2024-03-20] MEDS: DONEPEZIL HCL 5 MG TABLET PO (20:15)
[2024-03-20 23:21] LABS: Vancomycin Trough < 5.0 ug/mL (10.0-20.0)
[2024-03-21] VITALS (21 sets, daily range): BP systolic 124–132; BP diastolic 76–87; PULSE 70–96; RESP 16–20; TEMP 36.5–37.7; O2SAT 93–98
[2024-03-21 00:36] LABS: Glucose Point of Care 148 mg/dl (65-105)
[2024-03-21] MEDS: AMPICILLIN SULB 3 GM/NS 100 ML 3 GM/100 ML VIAL IVPB ×4 (00:39→17:22)
[2024-03-21] MEDS: SODIUM CHLORIDE 0.9% IV 1,000 ML 100 ML IV CONT ×2 (02:47→14:28)
[2024-03-21] MEDS: IPRATROPIUM 0.5 MG/ALBUTEROL SULFATE 2.5 MG AMPUL.NEB 3 ML INHALATION ×6 (03:50→23:38)
[2024-03-21 05:31] LABS: Estimated CRCL calculation 55 ml/min; Estimated Glomerular Filt Rate > 60
[2024-03-21 06:06] LABS: Glucose Point of Care 130 mg/dl (65-105)
--- NOTE | 2024-03-21 08:06 | PM.IMPN ---
Progress Note: A&P Assessment and Plan (1) Sepsis: Qualifiers: Sepsis type: sepsis due to unspecified organism Sepsis acute organ dysfunction status: with acute organ dysfunction Severe sepsis acute organ dysfunction type: acute respiratory failure Acute respiratory failure type: with hypoxia Severe sepsis shock status: without septic shock Qualified Code(s): A41.9 - Sepsis, unspecified organism; R65.20 - Severe sepsis without septic shock; J96.01 - Acute respiratory failure with hypoxia Code(s): A41.9 - Sepsis, unspecified organism Status: Resolved (2) Aspiration pneumonia: Qualifiers: Aspiration pneumonia type: unspecified Laterality: right Lung location: unspecified part of lung Qualified Code(s): J69.0 - Pneumonitis due to inhalation of food and vomit Code(s): J69.0 - Pneumonitis due to inhalation of food and vomit Status: Acute (3) COPD (chronic obstructive pulmonary disease): Qualifiers: COPD type: COPD with acute lower respiratory infection Qualified Code(s): J44.0 - Chronic obstructive pulmonary disease with (acute) lower respiratory infection Code(s): J44.9 - Chronic obstructive pulmonary disease, unspecified Status: Acute (4) AMS (altered mental status): Qualifiers: Altered mental status type: unspecified Qualified Code(s): R41.82 - Altered mental status, unspecified Code(s): R41.82 - Altered mental status, unspecified Status: Chronic (5) Transaminitis: Code(s): R74.01 - Elevation of levels of liver transaminase levels Status: Chronic (6) Dementia: Qualifiers: Dementia type: unspecified type Dementia severity: severe Dementia behavioral or psychological symptom: unspecified whether behavioral, psychotic, or mood disturbance or anxiety Qualified Code(s): F03.C0 - Unspecified dementia, severe, without behavioral disturbance, psychotic disturbance, mood disturbance, and anxiety Code(s): F03.90 - Unspecified dementia, unspecified severity, without behavioral disturbance, psychotic disturbance, mood disturbance, and anxiety Status: Chronic Plan Sepsis Low grade temp Patient meets sepsis criteria with tachycardia, tachypnea and leukocytosis in the setting of acute aspiration with aspiration pneumonia and multiple lobes a right lung with associated hypoxic respiratory failure. BP's soft, 95/50 on admission, normalized with fluids --Blood cultures negative x2 --Temp 99.8 overnight, repeat CBC, CRP in AM. Check lipase, HFP Acute hypoxic respiratory failure Aspiration pneumonia Started empiric rocephin IM outpatient, azithromycin, Vancomycin, changed to Unasyn. Weaned off oxygen. MRSA PCR was negative. Still has a coarse upper airway. Pulmonary following, appreciate recommendations --Continue Unasyn --Aspiration precautions, elevate HOB --NPO. Dry mouth, add artificial saliva, frequent oral care. Add peridex --Suctioning prn COPD Pulmononary following, appreciate recommendations Dementia Hx G-tube, malnutrition Patient does have transaminitis but this seems to be somewhat chronic with transaminases improved from prior hospital stay. Will repeat CMP and monitor. CKD Creatinine 1.2 on admission, improved to 0.8 with fluids Continue G-tube feeds with free water flushes as discussed above will monitor strict I&O's. Transaminitis Alk phos 260>166, ALT 399>181, AST 136> 111, TBili 0.9<0.8 --Recheck Patient has been admitted as observation status. Subjective Date/time seen: 03/21/24 08:06 Interval history: Low grade temp, 99.8 Unable to clear airway well. Have to clear with a yankaur. X-ray showed airspace opacities in the right mid and left lower lung zone. No pleural effusion or pneumothorax. Adding on labs Review of Systems Review of Systems: ROS unobtainable: Yes unobtainable due to medical condition (Dementia) and unobtainable due to mental status Exam Narrative: CONSTITUTIONAL: Nonverbal, male pt sitting/lying in bed at this time in no acute distress. HENMT: head is atraumatic and normocephalic. Poor oral hygiene present. Dry MM. Coarse upper airway NECK: Turns neck in a supple manner without any noted deficits. RESPIRATORY: Crackles present BLL, Poor effort for inspiration and does not follow commands. CARDIO: RRR, S1 and S2 present. No S3, S4, m,r,g,h GI: Soft, NT, BS present x4 quads without any distention. No peritoneal signs. : Incontinent SKIN: Stage 1 wound x2 to the right hip. Wound nurses at the bedside and they are advising a mepilex padded dressing. Small skin tear also to right upper thigh posteriorly. NEURO: At baseline, moves all extremities, nonverbal Objective Data Vital Signs Vital Signs: Vital Signs - 24 hr 03/20/24 09:30 03/20/24 11:20 03/20/24 11:26 Temperature Pulse Rate 87 85 Respiratory Rate 18 18 Blood Pressure Pulse Oximetry Oxygen Delivery Room Air Fraction of Inspired Oxygen 03/20/24 12:00 03/20/24 14:11 03/20/24 15:30 Temperature 98.6 F Pulse Rate 93 92 92 Respiratory Rate 18 18 Blood Pressure 108/66 Pulse Oximetry 96 Oxygen Delivery Fraction of Inspired Oxygen 03/20/24 15:37 03/20/24 16:00 03/20/24 20:00 Temperature Pulse Rate 91 94 98 Respiratory Rate 18 Blood Pressure Pulse Oximetry Oxygen Delivery Fraction of Inspired Oxygen 03/20/24 20:10 03/20/24 20:18 03/20/24 20:20 Temperature Pulse Rate 99 93 Respiratory Rate 18 18 Blood Pressure Pulse Oximetry 96 94 Oxygen Delivery Room Air Room Air Fraction of Inspired Oxygen 21 21 03/20/24 20:28 03/20/24 21:10 03/20/24 23:04 Temperature 99.3 F Pulse Rate 93 99 92 Respiratory Rate 18 18 18 Blood Pressure 103/71 Pulse Oximetry 96 Oxygen Delivery Fraction of Inspired Oxygen 03/20/24 23:11 03/21/24 00:04 03/21/24 03:51 Temperature Pulse Rate 89 92 94 Respiratory Rate 18 18 Blood Pressure Pulse Oximetry Oxygen Delivery Fraction of Inspired Oxygen 03/21/24 04:00 03/21/24 04:00 03/21/24 06:00 Temperature 99.8 F H Pulse Rate 93 93 96 Respiratory Rate 18 20 Blood Pressure 128/87 Pulse Oximetry 96 Oxygen Delivery Fraction of Inspired Oxygen 03/21/24 07:21 03/21/24 07:21 03/21/24 07:30 Temperature Pulse Rate 89 94 Respiratory Rate 20 20 Blood Pressure Pulse Oximetry 96 Oxygen Delivery Room Air Fraction of Inspired Oxygen 21 Intake/Output Intake/Output: Intake & Output 03/18/24 03/19/24 03/20/24 03/21/24 23:59 23:59 23:59 23:59 Intake Total 50 2200 2400 1100 Balance 50 2200 2400 1100 Meds/Results Medications: Active Medications Generic Name Dose Route Start Last Admin Trade Name Freq PRN Reason Stop Dose Admin Acetaminophen 650 mg 03/18/24 22:33 Acetaminophen 325 Mg Tablet FEED TUBE Q4H PRN fever or pain 1-3 Albuterol/Ipratropium 3 ml 03/19/24 16:00 03/21/24 07:21 Ipratropium 0.5 Mg/Albuterol Sulfate 2.5 Mg Ampul.Neb 3 Ml INHALATION 3 ml Q4HRT MIRNA Administration Aspirin 81 mg 03/20/24 09:00 03/20/24 10:25 Aspirin 81 Mg Chewable Tablet FEED TUBE 81 mg DAILY MIRNA Administration Atorvastatin Calcium 20 mg 03/19/24 18:00 03/20/24 18:33 Atorvastatin 20 Mg Tablet FEED TUBE 20 mg QPM MIRNA Administration Bisacodyl 10 mg 03/18/24 22:33 Bisacodyl 10 Mg Suppository RECTAL DAILY PRN Constipation Cyanocobalamin 1,000 mcg 03/19/24 09:00 03/20/24 10:25 Cyanocobalamin 1,000 Mcg Tablet FEED TUBE 1,000 mcg DAILY MIRNA Administration Docusate Sodium 100 mg 03/19/24 09:00 03/20/24 20:15 Docusate Sodium Liq 100 Mg/10 Ml Udc FEED TUBE 100 mg Q12HR MIRNA Administration Donepezil HCl 5 mg 03/19/24 21:00 03/20/24 20:15 Donepezil Hcl 5 Mg Tablet PO 5 mg HS MIRNA Administration Doxazosin Mesylate 1 mg 03/19/24 18:00 03/20/24 18:33 Doxazosin Mesylate 1 Mg Tablet FEED TUBE 1 mg QPM MIRNA Administration Heparin Sodium (Porcine) 5,000 units 03/19/24 09:00 03/20/24 20:16 Heparin Sodium 5,000 Units/Ml Vial SUB-Q 5,000 units Q12HR MIRNA Administration Hydroxyzine Pamoate 25 mg 03/18/24 22:45 03/20/24 20:16 Hydroxyzine Pamoate 25 Mg Capsule FEED TUBE 25 mg Q12HR MIRNA Administration Sodium Chloride 1,000 mls @ 100 mls/hr 03/18/24 20:10 03/21/24 02:47 Normal Saline Iv IV CONT 100 mls/hr .Q10H MIRNA Administration Ampicillin Sodium/Sulbactam Sodium 3 gm in 100 mls @ 200 mls/hr 03/19/24 11:00 03/21/24 06:08 Unasyn 3 Gm/Ns 100 Ml IVPB 200 mls/hr Q6HR MIRNA Administration Loratadine 10 mg 03/18/24 22:40 Loratadine 10 Mg Tablet FEED TUBE DAILY PRN Congestion Magnesium Hydroxide 30 ml 03/18/24 22:33 Magnesium Hydroxide Susp 30 Ml Udc FEED TUBE DAILY PRN Constipation Saccharomyces Boulardii 250 mg 03/19/24 09:00 03/20/24 18:33 Saccharomyces Boulardii 250 Mg Capsule FEED TUBE 250 mg BID MIRNA Administration Saliva Substitute 10 ml 03/20/24 13:00 03/20/24 20:16 Saliva Substitute Rinse 473 Ml Bottle PO Not Given QID MIRNA Timolol Maleate 1 drop 03/20/24 09:50 03/20/24 20:16 Timolol Maleate 0.5% Op Soln 5 Ml Bottle EACH EYE 1 drop Q12HR MIRNA Administration Radiology Results: ITS Impressions Chest CT 03/18/24 17:48 IMPRESSION: 1. Right-sided pneumonia with a posterior and lower lung predominance. 2. Material in the right middle lobe and right lower lobe bronchi, which may be mucous plugging or aspirated material. 3. Moderate emphysema. 4. Mild mediastinal lymphadenopathy, likely reactive. Chest X-Ray 03/21/24 06:11 IMPRESSION: 1. Worsened airspace opacities in right mid and lower lung zones and left lower lung zone, consistent with pneumonia. Labs Labs: Laboratory Results - last 24 hr 03/20/24 03/20/24 03/20/24 11:37 18:27 22:02 Creatinine Estim Creat Clear Calc Estimated GFR POC Capillary Glucose 142 H 121 H Vancomycin Trough < 5.0 L 03/21/24 03/21/24 03/21/24 00:23 04:44 05:41 Creatinine 0.90 Estim Creat Clear Calc 55 Estimated GFR > 60 POC Capillary Glucose 148 H 130 H Vancomycin Trough Quality VTE Prophylaxis VTE prophylaxis: pharmacologic ordered Hospitalist [facility] Advance Care Plan I have confirmed that the patient's Advanced Care Plan is present, code status is documented, or surrogate decision maker is listed in patient medical record.: Yes Medication Reconciliation I have utilized all available resources to obtain, update and review the patients current medications (includes all prescriptions, OTC, herbals, cannabis, and nutritional supplements).: Yes
--- NOTE | 2024-03-21 08:22 | PM.PNPUL ---
Progress Note: A&P Assessment and Plan (1) Aspiration pneumonia: Qualifiers: Aspiration pneumonia type: unspecified Laterality: right Lung location: unspecified part of lung Qualified Code(s): J69.0 - Pneumonitis due to inhalation of food and vomit Code(s): J69.0 - Pneumonitis due to inhalation of food and vomit Status: Acute Plan Patient with a PEG tube on tube feedings and NPO at the long term with emesis on 03/18/24 followed by aspiration at the long term. He required suctioning at the long term in supplemental oxygen. Chest x-ray in the emergency department showed right-sided infiltrates and CT scan of the chest showed posterior right upper lobe, right lower lobe and infiltrates in the right middle lobe all in a dependent area consistent with aspiration. he required 6 L in the emergency department. 03/19/24: When I saw the patient today is nonverbal, he does not cough when I requested him to cough. He was on 4 L nasal cannula with saturations 98%. I decreased him to room air and after 8 minutes his saturations remain 96%. I did use yankour and cleared oral secretions from his mouth. He had no upper airway rhonchorous sounds. His white blood cell count is 11.6, his creatinine is 1.2 with a BUN of 40, his MRSA nasal swab PCR is negative. plan: The patient did aspirate. He is on tube feedings and NPO so he would have not aspirated any solid food particles. He had debris in right lower lobe and right middle lobe airways on his CT scan likely mucous. Chest x-ray today demonstrates no lobar collapse. Patient's oxygenation has improved. There is no need for bronchoscopy at this time. Patient was empirically started on vancomycin, ceftriaxone and azithromycin. His MRSA nasal swab is negative. Will discontinue vancomycin, ceftriaxone and azithromyci nand change the patient to unasyn 3 gm Q 6 hours. Will continue DuoNebs Q 6 as a history of COPD with mild apical predominant centrilobular emphysema on a CT scan of the chest. 03/20/24: patient is nonverbal attempting to mouth words. Patient had rhonchorous breath sounds when I entered the room. I asked him to cough and he did not follow commands. I used a Yankauer and suction thick secretions from the back of his oropharynx. Room air saturations 97%. White blood cell count 8.2, creatinine 0.8, afebrile. Weight is 65 kg. patient is clinically stable. He is now on room air. Leukocytosis has improved. He is afebrile. Plan: Patient is day 3 total antibiotics, day 2 Unasyn. Clinically he is has improved. It should be noted that the patient cannot clear his oral secretions and he is at high risk for subsequent aspiration events. I will check a chest x-ray on 03/21 and if this is stable would be ready for discharge on these pulmonary medications. Augmentin suspension 400 -57/5 ml at 10 ml BID x3 days (to finish a 7 day course of total antibiotics). Discussed with Albertina Camarena, will follow with you. Subjective Date/time seen: 03/21/24 08:22 Interval history: 03/19/2024: This is a new pulmonary consult for aspiration pneumonia. 79-year-old with a history of dementia, CVA, coronary artery disease, CKD, status post PEG 11/13/2023 on tube feedings at the long term. Regarding his dementia patient is nonverbal and to my exam today did not follow any verbal commands. Patient has had multiple emergency room department visits and hospitalizations for PEG tube removal as he pulls this out at the long term. On 03/18/2024 the patient vomited at the long term with a witnessed aspiration. They attempted to clear his airway but he was hypoxic and they gave him supplemental oxygen and he was transferred to the emergency department. In the emergency department he had copious secretions with difficulty coughing. Deep suction cleared his secretions and improved his respiratory status. He required 6 L nasal cannula in the emergency department with saturations 96%. Blood pressure 120/81, heart rate 102. White blood cell count 9.7, creatinine 1.2, BUN 47, COVID influenza and RSV RT PCR studies negative. Chest x-ray showed right lung infiltrate. CT of the chest showed posterior right upper lobe, right lower lobe infiltrates, right middle lobe infiltrates as well with some debris in the right middle lobe and right lower lobe. Patient was admitted for aspiration pneumonia and started on ceftriaxone, azithromycin and given vancomycin. DuoNebs were initiated. 03/19/2024: the daytime nurse told me that he had to be suctioned with a Yankauer 2 or 3 times throughout the night and also had deep suctioning through the nose through the night. She related there was a small amount of blood. When I saw the patient today is nonverbal, he does not cough when I requested him to cough. He was on 4 L nasal cannula with saturations 98%. I decreased him to room air and after 8 minutes his saturations remain 96%. I did use yankour and cleared oral secretions from his mouth. He had no upper airway rhonchorous sounds. His white blood cell count is 11.6, his creatinine is 1.2 with a BUN of 40, his MRSA nasal swab PCR is negative. 03/20/24: patient is nonverbal attempting to mouth words. Patient had rhonchorous breath sounds when I entered the room. I asked him to cough and he did not follow commands. I used a Yankauer and suction thick secretions from the back of his oropharynx. Room air saturations 97%. White blood cell count 8.2, creatinine 0.8, afebrile. Weight is 65 kg. 03/21/24: Patient is nonverbal, attempts to mouth words but does not follow any commands. rhonchorous upper airway sounds with an inability to cough to command and inability to clear his secretions. Yankauer again used with suctioning of secretions from the back of his mouth. Room air saturation 96%. Patient had a temperature to 99.9 this morning. Chest x-ray shows worsening right mid and lower lung infiltrates and increased left lower lung infiltrates. DATA: EXAMINATION:CT diagnostic chest wo con DATE: 03/18/2024 17:46 INDICATION: Pneumonia. Abnormal chest radiographs. TECHNIQUE: Computed tomography (CT) of the chest was performed without intravenous contrast. Automated exposure control and iterative reconstruction technique were employed. The dose-length product (DLP) was 157.84 mGy-cm. COMPARISON: Chest single view 03/18/2024 FINDINGS: There is moderate emphysema. There is mild scarring at left lung apex. There are airspace opacities in all right lung lobes with a posterior lower lung predominance, consistent with pneumonia. Calcified bilateral lung nodules and calcified right hilar lymph nodes are consistent with old granulomatous disease. There is a 5 mm nodule in left upper lobe, likely benign. There is material in the bronchi in right middle lobe and right lower lobe. There is mild dependent atelectasis in left lower lobe. No pleural effusion. The heart size is normal. No pericardial effusion. There is mild mediastinal lymphadenopathy. A gastrostomy tube is partially visualized. There is a chronic compression fracture of L2. There are bridging endplate osteophytes at multiple levels in the spine, consistent with diffuse idiopathic skeletal hyperostosis (DISH). IMPRESSION: 1. Right-sided pneumonia with a posterior and lower lung predominance. 2. Material in the right middle lobe and right lower lobe bronchi, which may be mucous plugging or aspirated material. 3. Moderate emphysema. 4. Mild mediastinal lymphadenopathy, likely reactive. Review of Systems Review of Systems: ROS unobtainable: Yes unobtainable due to mental status Exam Const: General: comfortable and no acute distress Orientation/consciousness: oriented to person, oriented to place and oriented to time Other: does not follow commands HENMT: Head: normal to inspection Ears: hearing grossly normal bilaterally Eyes: General: appearance normal, both eyes and all related structures Neck: Neck: normal visual inspection Chest: Chest palpation & inspection: normal inspection of the chest Resp: Effort & Inspection: normal respiratory effort and able to speak in complete sentences Auscultation: no crackles, no rales, rhonchi, no wheezes and lung sounds not diminished Other: Does not follow commands to take a deep breath on request. Rhonchorous upper airway breath sounds Cardio: Jugular venous distension: no JVD GI: Inspection: normal to inspection Other: peg in place Skin: General skin exam: normal color Neuro: General: oriented to person, oriented to place and oriented to time Other: tracks with eyes, attempts to mouth words at times, does not follow any verbal commands. Extrem: General: normal to inspection Other: No edema Psych: Appearance: grossly normal Objective Data Vital Signs Vital Signs: Vital Signs - 24 hr 03/20/24 09:30 03/20/24 11:20 03/20/24 11:26 Temperature Pulse Rate 87 85 Respiratory Rate 18 18 Blood Pressure Pulse Oximetry Oxygen Delivery Room Air Fraction of Inspired Oxygen 03/20/24 12:00 03/20/24 14:11 03/20/24 15:30 Temperature 37.0 C Pulse Rate 93 92 92 Respiratory Rate 18 18 Blood Pressure 108/66 Pulse Oximetry 96 Oxygen Delivery Fraction of Inspired Oxygen 03/20/24 15:37 03/20/24 16:00 03/20/24 20:00 Temperature Pulse Rate 91 94 98 Respiratory Rate 18 Blood Pressure Pulse Oximetry Oxygen Delivery Fraction of Inspired Oxygen 03/20/24 20:10 03/20/24 20:18 03/20/24 20:20 Temperature Pulse Rate 99 93 Respiratory Rate 18 18 Blood Pressure Pulse Oximetry 96 94 Oxygen Delivery Room Air Room Air Fraction of Inspired Oxygen 21 21 03/20/24 20:28 03/20/24 21:10 03/20/24 23:04 Temperature 37.4 C Pulse Rate 93 99 92 Respiratory Rate 18 18 18 Blood Pressure 103/71 Pulse Oximetry 96 Oxygen Delivery Fraction of Inspired Oxygen 03/20/24 23:11 03/21/24 00:04 03/21/24 03:51 Temperature Pulse Rate 89 92 94 Respiratory Rate 18 18 Blood Pressure Pulse Oximetry Oxygen Delivery Fraction of Inspired Oxygen 03/21/24 04:00 03/21/24 04:00 03/21/24 06:00 Temperature 37.7 C H Pulse Rate 93 93 96 Respiratory Rate 18 20 Blood Pressure 128/87 Pulse Oximetry 96 Oxygen Delivery Fraction of Inspired Oxygen 03/21/24 07:21 03/21/24 07:21 03/21/24 07:30 Temperature Pulse Rate 89 94 Respiratory Rate 20 20 Blood Pressure Pulse Oximetry 96 Oxygen Delivery Room Air Fraction of Inspired Oxygen 21 Intake/Output Intake/Output: Intake & Output 03/18/24 03/19/24 03/20/24 03/21/24 23:59 23:59 23:59 23:59 Intake Total 50 2200 2400 1100 Balance 50 2200 2400 1100 Meds/Results Medications: Active Medications Generic Name Dose Route Start Last Admin Trade Name Freq PRN Reason Stop Dose Admin Acetaminophen 650 mg 03/18/24 22:33 Acetaminophen 325 Mg Tablet FEED TUBE Q4H PRN fever or pain 1-3 Albuterol/Ipratropium 3 ml 03/19/24 16:00 03/21/24 07:21 Ipratropium 0.5 Mg/Albuterol Sulfate 2.5 Mg Ampul.Neb 3 Ml INHALATION 3 ml Q4HRT MIRNA Administration Aspirin 81 mg 03/20/24 09:00 03/20/24 10:25 Aspirin 81 Mg Chewable Tablet FEED TUBE 81 mg DAILY MIRNA Administration Atorvastatin Calcium 20 mg 03/19/24 18:00 03/20/24 18:33 Atorvastatin 20 Mg Tablet FEED TUBE 20 mg QPM MIRNA Administration Bisacodyl 10 mg 03/18/24 22:33 Bisacodyl 10 Mg Suppository RECTAL DAILY PRN Constipation Bisacodyl 10 mg 03/21/24 09:00 Bisacodyl 10 Mg Suppository RECTAL QAM [facility] Chlorhexidine Gluconate 15 ml 03/21/24 09:00 Chlorhexidine Gluconate 0.12% Oral Rinse 473 Ml Btl (*Bkc) SWISH/SPIT BID [facility] Cyanocobalamin 1,000 mcg 03/19/24 09:00 03/20/24 10:25 Cyanocobalamin 1,000 Mcg Tablet FEED TUBE 1,000 mcg DAILY MIRNA Administration Docusate Sodium 100 mg 03/19/24 09:00 03/20/24 20:15 Docusate Sodium Liq 100 Mg/10 Ml Udc FEED TUBE 100 mg Q12HR MIRNA Administration Donepezil HCl 5 mg 03/19/24 21:00 03/20/24 20:15 Donepezil Hcl 5 Mg Tablet PO 5 mg HS MIRNA Administration Doxazosin Mesylate 1 mg 03/19/24 18:00 03/20/24 18:33 Doxazosin Mesylate 1 Mg Tablet FEED TUBE 1 mg QPM MIRNA Administration Heparin Sodium (Porcine) 5,000 units 03/19/24 09:00 03/20/24 20:16 Heparin Sodium 5,000 Units/Ml Vial SUB-Q 5,000 units Q12HR MIRNA Administration Hydroxyzine Pamoate 25 mg 03/18/24 22:45 03/20/24 20:16 Hydroxyzine Pamoate 25 Mg Capsule FEED TUBE 25 mg Q12HR MIRNA Administration Sodium Chloride 1,000 mls @ 100 mls/hr 03/18/24 20:10 03/21/24 02:47 Normal Saline Iv IV CONT 100 mls/hr .Q10H MIRNA Administration Ampicillin Sodium/Sulbactam Sodium 3 gm in 100 mls @ 200 mls/hr 03/19/24 11:00 03/21/24 06:08 Unasyn 3 Gm/Ns 100 Ml IVPB 200 mls/hr Q6HR MIRNA Administration Loratadine 10 mg 03/18/24 22:40 Loratadine 10 Mg Tablet FEED TUBE DAILY PRN Congestion Magnesium Hydroxide 30 ml 03/18/24 22:33 Magnesium Hydroxide Susp 30 Ml Udc FEED TUBE DAILY PRN Constipation Saccharomyces Boulardii 250 mg 03/19/24 09:00 03/20/24 18:33 Saccharomyces Boulardii 250 Mg Capsule FEED TUBE 250 mg BID MIRNA Administration Saliva Substitute 10 ml 03/20/24 13:00 03/20/24 20:16 Saliva Substitute Rinse 473 Ml Bottle PO Not Given QID MIRNA Senna 8.8 mg 03/21/24 09:00 Sennosides 8.8 Mg/5 Ml Syrup PO BID MIRNA Timolol Maleate 1 drop 03/20/24 09:50 03/20/24 20:16 Timolol Maleate 0.5% Op Soln 5 Ml Bottle EACH EYE 1 drop Q12HR MIRNA Administration Radiology Results: ITS Impressions Chest CT 03/18/24 17:48 IMPRESSION: 1. Right-sided pneumonia with a posterior and lower lung predominance. 2. Material in the right middle lobe and right lower lobe bronchi, which may be mucous plugging or aspirated material. 3. Moderate emphysema. 4. Mild mediastinal lymphadenopathy, likely reactive. Chest X-Ray 03/21/24 06:11 IMPRESSION: 1. Worsened airspace opacities in right mid and lower lung zones and left lower lung zone, consistent with pneumonia. Labs Labs: Laboratory Results - last 24 hr 03/20/24 03/20/24 03/20/24 11:37 18:27 22:02 Creatinine Estim Creat Clear Calc Estimated GFR POC Capillary Glucose 142 H 121 H Vancomycin Trough < 5.0 L 03/21/24 03/21/24 03/21/24 00:23 04:44 05:41 Creatinine 0.90 Estim Creat Clear Calc 55 Estimated GFR > 60 POC Capillary Glucose 148 H 130 H Vancomycin Trough
[2024-03-21 08:25] LABS: Alanine Aminotransferase 208 U/L (6-50); Albumin Level 2.4 g/dL (3.5-5.1); Alkaline Phosphatase 235 U/L (38-126); Anion Gap 3 mmol/L (4-12); Aspartate Amino Transferase 134 U/L (17-59); Bilirubin,Total 0.5 mg/dL (0.2-1.3); Blood Urea Nitrogen 25 mg/dL (9-20); Calcium 8.6 mg/dL (8.4-10.2); Carbon Dioxide 26 mmol/L (22-30); Chloride 116 mmol/L (98-107); Estimated CRCL calculation 55 ml/min; Estimated Glomerular Filt Rate > 60; Glucose 125 mg/dL (65-110); Lipase 94 U/L (23-300); Potassium 3.3 mmol/L (3.4-5.0); Sodium 145 mmol/L (137-145)
--- NOTE | 2024-03-21 08:25 | PM.PNPUL ---
Progress Note: A&P Assessment and Plan (1) Aspiration pneumonia: Qualifiers: Aspiration pneumonia type: unspecified Laterality: right Lung location: unspecified part of lung Qualified Code(s): J69.0 - Pneumonitis due to inhalation of food and vomit Code(s): J69.0 - Pneumonitis due to inhalation of food and vomit Status: Acute Plan Patient with a PEG tube on tube feedings and NPO at the custodial with emesis on 03/18/24 followed by aspiration at the custodial. He required suctioning at the custodial in supplemental oxygen. Chest x-ray in the emergency department showed right-sided infiltrates and CT scan of the chest showed posterior right upper lobe, right lower lobe and infiltrates in the right middle lobe all in a dependent area consistent with aspiration. he required 6 L in the emergency department. 03/19/24: When I saw the patient today is nonverbal, he does not cough when I requested him to cough. He was on 4 L nasal cannula with saturations 98%. I decreased him to room air and after 8 minutes his saturations remain 96%. I did use yankour and cleared oral secretions from his mouth. He had no upper airway rhonchorous sounds. His white blood cell count is 11.6, his creatinine is 1.2 with a BUN of 40, his MRSA nasal swab PCR is negative. plan: The patient did aspirate. He is on tube feedings and NPO so he would have not aspirated any solid food particles. He had debris in right lower lobe and right middle lobe airways on his CT scan likely mucous. Chest x-ray today demonstrates no lobar collapse. Patient's oxygenation has improved. There is no need for bronchoscopy at this time. Patient was empirically started on vancomycin, ceftriaxone and azithromycin. His MRSA nasal swab is negative. Will discontinue vancomycin, ceftriaxone and azithromyci nand change the patient to unasyn 3 gm Q 6 hours. Will continue DuoNebs Q 6 as a history of COPD with mild apical predominant centrilobular emphysema on a CT scan of the chest. 03/20/24: patient is nonverbal attempting to mouth words. Patient had rhonchorous breath sounds when I entered the room. I asked him to cough and he did not follow commands. I used a Yankauer and suction thick secretions from the back of his oropharynx. Room air saturations 97%. White blood cell count 8.2, creatinine 0.8, afebrile. Weight is 65 kg. patient is clinically stable. He is now on room air. Leukocytosis has improved. He is afebrile. Plan: Patient is day 3 total antibiotics, day 2 Unasyn. Clinically he is has improved. It should be noted that the patient cannot clear his oral secretions and he is at high risk for subsequent aspiration events. I will check a chest x-ray on 03/21 and if this is stable would be ready for discharge on these pulmonary medications. Augmentin suspension 400 -57/5 ml at 10 ml BID x3 days (to finish a 7 day course of total antibiotics). 03/21/24: Patient is nonverbal, attempts to mouth words but does not follow any commands. rhonchorous upper airway sounds with an inability to cough to command and inability to clear his secretions. Yankauer again used with suctioning of secretions from the back of his mouth. Room air saturation 96%. Patient had a temperature to 99.9 this morning. Chest x-ray shows worsening right mid and lower lung infiltrates and increased left lower lung infiltrates. Plan: Patient with a low-grade temperature this morning and chest x-ray with worsening right middle and lower and left lower lobe infiltrates. Oxygenation remained stable on room air. Etiology for low-grade fever and worsening infiltrates include continued aspiration events, at this time will follow patient's temperature curve and I will not change his antibiotics and continue Unasyn day 3. Total antibiotics is day 4. Will send testing for additional etiologies of low-grade fever (LFTs, lipase). Spoke with the nurse. The patient has had formed bowel movements. will repeat chest x-ray on 03/22/2024 Discussed with Albertina Camarena, will follow with you. Subjective Date/time seen: 03/21/24 08:25 Interval history: 03/19/2024: This is a new pulmonary consult for aspiration pneumonia. 79-year-old with a history of dementia, CVA, coronary artery disease, CKD, status post PEG 11/13/2023 on tube feedings at the custodial. Regarding his dementia patient is nonverbal and to my exam today did not follow any verbal commands. Patient has had multiple emergency room department visits and hospitalizations for PEG tube removal as he pulls this out at the custodial. On 03/18/2024 the patient vomited at the custodial with a witnessed aspiration. They attempted to clear his airway but he was hypoxic and they gave him supplemental oxygen and he was transferred to the emergency department. In the emergency department he had copious secretions with difficulty coughing. Deep suction cleared his secretions and improved his respiratory status. He required 6 L nasal cannula in the emergency department with saturations 96%. Blood pressure 120/81, heart rate 102. White blood cell count 9.7, creatinine 1.2, BUN 47, COVID influenza and RSV RT PCR studies negative. Chest x-ray showed right lung infiltrate. CT of the chest showed posterior right upper lobe, right lower lobe infiltrates, right middle lobe infiltrates as well with some debris in the right middle lobe and right lower lobe. Patient was admitted for aspiration pneumonia and started on ceftriaxone, azithromycin and given vancomycin. DuoNebs were initiated. 03/19/2024: the daytime nurse told me that he had to be suctioned with a Yankauer 2 or 3 times throughout the night and also had deep suctioning through the nose through the night. She related there was a small amount of blood. When I saw the patient today is nonverbal, he does not cough when I requested him to cough. He was on 4 L nasal cannula with saturations 98%. I decreased him to room air and after 8 minutes his saturations remain 96%. I did use yankour and cleared oral secretions from his mouth. He had no upper airway rhonchorous sounds. His white blood cell count is 11.6, his creatinine is 1.2 with a BUN of 40, his MRSA nasal swab PCR is negative. 03/20/24: patient is nonverbal attempting to mouth words. Patient had rhonchorous breath sounds when I entered the room. I asked him to cough and he did not follow commands. I used a Yankauer and suction thick secretions from the back of his oropharynx. Room air saturations 97%. White blood cell count 8.2, creatinine 0.8, afebrile. Weight is 65 kg. 03/21/24: Patient is nonverbal, attempts to mouth words but does not follow any commands. rhonchorous upper airway sounds with an inability to cough to command and inability to clear his secretions. Yankauer again used with suctioning of secretions from the back of his mouth. Room air saturation 96%. Patient had a temperature to 99.9 this morning. Chest x-ray shows worsening right mid and lower lung infiltrates and increased left lower lung infiltrates. DATA: EXAMINATION:CT diagnostic chest wo con DATE: 03/18/2024 17:46 INDICATION: Pneumonia. Abnormal chest radiographs. TECHNIQUE: Computed tomography (CT) of the chest was performed without intravenous contrast. Automated exposure control and iterative reconstruction technique were employed. The dose-length product (DLP) was 157.84 mGy-cm. COMPARISON: Chest single view 03/18/2024 FINDINGS: There is moderate emphysema. There is mild scarring at left lung apex. There are airspace opacities in all right lung lobes with a posterior lower lung predominance, consistent with pneumonia. Calcified bilateral lung nodules and calcified right hilar lymph nodes are consistent with old granulomatous disease. There is a 5 mm nodule in left upper lobe, likely benign. There is material in the bronchi in right middle lobe and right lower lobe. There is mild dependent atelectasis in left lower lobe. No pleural effusion. The heart size is normal. No pericardial effusion. There is mild mediastinal lymphadenopathy. A gastrostomy tube is partially visualized. There is a chronic compression fracture of L2. There are bridging endplate osteophytes at multiple levels in the spine, consistent with diffuse idiopathic skeletal hyperostosis (DISH). IMPRESSION: 1. Right-sided pneumonia with a posterior and lower lung predominance. 2. Material in the right middle lobe and right lower lobe bronchi, which may be mucous plugging or aspirated material. 3. Moderate emphysema. 4. Mild mediastinal lymphadenopathy, likely reactive. Review of Systems Review of Systems: ROS unobtainable: Yes unobtainable due to mental status Exam Const: General: comfortable and no acute distress Other: does not follow commands HENMT: Head: normal to inspection Ears: hearing grossly normal bilaterally Eyes: General: appearance normal, both eyes and all related structures Neck: Neck: normal visual inspection Chest: Chest palpation & inspection: normal inspection of the chest Resp: Effort & Inspection: normal respiratory effort and able to speak in complete sentences Auscultation: no crackles, no rales, rhonchi, no wheezes and lung sounds not diminished Other: Does not follow commands to take a deep breath on request. Rhonchorous upper airway breath sounds Cardio: Jugular venous distension: no JVD GI: Inspection: normal to inspection Other: peg in place Skin: General skin exam: normal color Neuro: General: oriented to person, oriented to place and oriented to time Other: tracks with eyes, attempts to mouth words at times, does not follow any verbal commands. Extrem: General: normal to inspection Other: No edema Psych: Appearance: grossly normal Objective Data Vital Signs Vital Signs: Vital Signs - 24 hr 03/20/24 09:30 03/20/24 11:20 03/20/24 11:26 Temperature Pulse Rate 87 85 Respiratory Rate 18 18 Blood Pressure Pulse Oximetry Oxygen Delivery Room Air Fraction of Inspired Oxygen 03/20/24 12:00 03/20/24 14:11 03/20/24 15:30 Temperature 37.0 C Pulse Rate 93 92 92 Respiratory Rate 18 18 Blood Pressure 108/66 Pulse Oximetry 96 Oxygen Delivery Fraction of Inspired Oxygen 03/20/24 15:37 03/20/24 16:00 03/20/24 20:00 Temperature Pulse Rate 91 94 98 Respiratory Rate 18 Blood Pressure Pulse Oximetry Oxygen Delivery Fraction of Inspired Oxygen 03/20/24 20:10 03/20/24 20:18 03/20/24 20:20 Temperature Pulse Rate 99 93 Respiratory Rate 18 18 Blood Pressure Pulse Oximetry 96 94 Oxygen Delivery Room Air Room Air Fraction of Inspired Oxygen 21 21 03/20/24 20:28 03/20/24 21:10 03/20/24 23:04 Temperature 37.4 C Pulse Rate 93 99 92 Respiratory Rate 18 18 18 Blood Pressure 103/71 Pulse Oximetry 96 Oxygen Delivery Fraction of Inspired Oxygen 03/20/24 23:11 03/21/24 00:04 03/21/24 03:51 Temperature Pulse Rate 89 92 94 Respiratory Rate 18 18 Blood Pressure Pulse Oximetry Oxygen Delivery Fraction of Inspired Oxygen 03/21/24 04:00 03/21/24 04:00 03/21/24 06:00 Temperature 37.7 C H Pulse Rate 93 93 96 Respiratory Rate 18 20 Blood Pressure 128/87 Pulse Oximetry 96 Oxygen Delivery Fraction of Inspired Oxygen 03/21/24 07:21 03/21/24 07:21 03/21/24 07:30 Temperature Pulse Rate 89 94 Respiratory Rate 20 20 Blood Pressure Pulse Oximetry 96 Oxygen Delivery Room Air Fraction of Inspired Oxygen 21 Intake/Output Intake/Output: Intake & Output 12/1803/19/24 03/20/24 03/21/24 23:59 23:59 23:59 23:59 Intake Total 50 2200 2400 1100 Balance 50 2200 2400 1100 Meds/Results Medications: Active Medications Generic Name Dose Route Start Last Admin Trade Name Freq PRN Reason Stop Dose Admin Acetaminophen 650 mg 03/18/24 22:33 Acetaminophen 325 Mg Tablet FEED TUBE Q4H PRN fever or pain 1-3 Albuterol/Ipratropium 3 ml 03/19/24 16:00 03/21/24 07:21 Ipratropium 0.5 Mg/Albuterol Sulfate 2.5 Mg Ampul.Neb 3 Ml INHALATION 3 ml Q4HRT MIRNA Administration Aspirin 81 mg 03/20/24 09:00 03/20/24 10:25 Aspirin 81 Mg Chewable Tablet FEED TUBE 81 mg DAILY MIRNA Administration Atorvastatin Calcium 20 mg 03/19/24 18:00 03/20/24 18:33 Atorvastatin 20 Mg Tablet FEED TUBE 20 mg QPM MIRNA Administration Bisacodyl 10 mg 03/18/24 22:33 Bisacodyl 10 Mg Suppository RECTAL DAILY PRN Constipation Bisacodyl 10 mg 03/21/24 09:00 Bisacodyl 10 Mg Suppository RECTAL QAM MIRNA Chlorhexidine Gluconate 15 ml 03/21/24 09:00 Chlorhexidine Gluconate 0.12% Oral Rinse 473 Ml Btl (*Bkc) SWISH/SPIT BID MIRNA Cyanocobalamin 1,000 mcg 03/19/24 09:00 03/20/24 10:25 Cyanocobalamin 1,000 Mcg Tablet FEED TUBE 1,000 mcg DAILY MIRNA Administration Docusate Sodium 100 mg 03/19/24 09:00 03/20/24 20:15 Docusate Sodium Liq 100 Mg/10 Ml Udc FEED TUBE 100 mg Q12HR MIRNA Administration Donepezil HCl 5 mg 03/19/24 21:00 03/20/24 20:15 Donepezil Hcl 5 Mg Tablet PO 5 mg HS MIRNA Administration Doxazosin Mesylate 1 mg 03/19/24 18:00 03/20/24 18:33 Doxazosin Mesylate 1 Mg Tablet FEED TUBE 1 mg QPM MIRNA Administration Heparin Sodium (Porcine) 5,000 units 03/19/24 09:00 03/20/24 20:16 Heparin Sodium 5,000 Units/Ml Vial SUB-Q 5,000 units Q12HR MIRNA Administration Hydroxyzine Pamoate 25 mg 03/18/24 22:45 03/20/24 20:16 Hydroxyzine Pamoate 25 Mg Capsule FEED TUBE 25 mg Q12HR MIRNA Administration Sodium Chloride 1,000 mls @ 100 mls/hr 03/18/24 20:10 03/21/24 02:47 Normal Saline Iv IV CONT 100 mls/hr .Q10H MIRNA Administration Ampicillin Sodium/Sulbactam Sodium 3 gm in 100 mls @ 200 mls/hr 03/19/24 11:00 03/21/24 06:08 Unasyn 3 Gm/Ns 100 Ml IVPB 200 mls/hr Q6HR MIRNA Administration Loratadine 10 mg 03/18/24 22:40 Loratadine 10 Mg Tablet FEED TUBE DAILY PRN Congestion Magnesium Hydroxide 30 ml 03/18/24 22:33 Magnesium Hydroxide Susp 30 Ml Udc FEED TUBE DAILY PRN Constipation Saccharomyces Boulardii 250 mg 03/19/24 09:00 03/20/24 18:33 Saccharomyces Boulardii 250 Mg Capsule FEED TUBE 250 mg BID MIRNA Administration Saliva Substitute 10 ml 03/20/24 13:00 03/20/24 20:16 Saliva Substitute Rinse 473 Ml Bottle PO Not Given QID MIRNA Senna 8.8 mg 03/21/24 09:00 Sennosides 8.8 Mg/5 Ml Syrup PO BID MIRNA Timolol Maleate 1 drop 03/20/24 09:50 03/20/24 20:16 Timolol Maleate 0.5% Op Soln 5 Ml Bottle EACH EYE 1 drop Q12HR MIRNA Administration Radiology Results: ITS Impressions Chest CT 03/18/24 17:48 IMPRESSION: 1. Right-sided pneumonia with a posterior and lower lung predominance. 2. Material in the right middle lobe and right lower lobe bronchi, which may be mucous plugging or aspirated material. 3. Moderate emphysema. 4. Mild mediastinal lymphadenopathy, likely reactive. Chest X-Ray 03/21/24 06:11 IMPRESSION: 1. Worsened airspace opacities in right mid and lower lung zones and left lower lung zone, consistent with pneumonia. Labs Labs: Laboratory Results - last 24 hr 03/20/24 03/20/24 03/20/24 11:37 18:27 22:02 Creatinine Estim Creat Clear Calc Estimated GFR POC Capillary Glucose 142 H 121 H Vancomycin Trough < 5.0 L 03/21/24 03/21/24 03/21/24 00:23 04:44 05:41 Creatinine 0.90 Estim Creat Clear Calc 55 Estimated GFR > 60 POC Capillary Glucose 148 H 130 H Vancomycin Trough
[2024-03-21] MEDS: SACCHAROMYCES BOULARDII 250 MG CAPSULE FEED TUBE ×2 (09:03→17:22)
[2024-03-21] MEDS: SALIVA SUBSTITUTE RINSE 473 ML BOTTLE 10 ML PO ×3 (09:04→20:07)
[2024-03-21] MEDS: ASPIRIN 81 MG CHEWABLE TABLET FEED TUBE (09:04)
[2024-03-21] MEDS: CYANOCOBALAMIN 1,000 MCG TABLET 1000 MCG FEED TUBE (09:04)
[2024-03-21] MEDS: hydrOXYzine pamoate 25 MG CAPSULE FEED TUBE ×2 (09:04→20:07)
[2024-03-21] MEDS: HEPARIN SODIUM 5,000 UNITS/ML VIAL 5000 UNITS SUB-Q ×2 (09:04→20:07)
[2024-03-21] MEDS: TIMOLOL MALEATE 0.5% OP SOLN 5 ML BOTTLE 1 DROP EACH EYE ×2 (09:04→20:07)
[2024-03-21 09:21] LABS: Procalcitonin 1.3 ng/mL
[2024-03-21] MEDS: POTASSIUM CHLORIDE 20 MEQ PACKET (FOR LIQUID) FEED TUBE (10:37)
[2024-03-21] MEDS: CHLORHEXIDINE GLUCONATE 0.12% ORAL RINSE 473 ML BTL (*BKC) 15 ML SWISH/SPIT (10:37)
[2024-03-21 12:42] LABS: Glucose Point of Care 82 mg/dl (65-105)
[2024-03-21 17:10] LABS: Glucose Point of Care 115 mg/dl (65-105)
[2024-03-21] MEDS: ATORVASTATIN 20 MG TABLET FEED TUBE (17:21)
[2024-03-21] MEDS: DOXAZOSIN MESYLATE 1 MG TABLET FEED TUBE (17:22)
[2024-03-21 19:12] LABS: Glucose Point of Care 118 mg/dl (65-105)
[2024-03-21] MEDS: DONEPEZIL HCL 5 MG TABLET PO (20:07)
[2024-03-21 23:39] LABS: Glucose Point of Care 117 mg/dl (65-105)
[2024-03-22] VITALS (17 sets, daily range): BP systolic 122–128; BP diastolic 63–72; PULSE 65–89; RESP 18–22; TEMP 37.1–37.7; O2SAT 93–98
[2024-03-22] MEDS: AMPICILLIN SULB 3 GM/NS 100 ML 3 GM/100 ML VIAL IVPB ×5 (00:15→23:57)
[2024-03-22] MEDS: SODIUM CHLORIDE 0.9% IV 1,000 ML 100 ML IV CONT ×3 (00:38→22:02)
[2024-03-22] MEDS: IPRATROPIUM 0.5 MG/ALBUTEROL SULFATE 2.5 MG AMPUL.NEB 3 ML INHALATION ×5 (04:15→22:17)
[2024-03-22 05:56] LABS: Basophils Percent Auto 0.3 % (0.2-1.2); Eosinophils Absolute Auto 0.2 K/mm3 (0-0.3); Eosinophils Percent Auto 3.4 % (0-4.4); Hematocrit 29.5 % (42.0-52.0); Hemoglobin 9.4 g/dL (14.0-18.0); Immature Granulocyte Absolute 0.05 K/mm3 (0.00-0.031); Immature Granulocyte Percent A 0.9 % (0-0.5); Lymphocytes Absolute Auto 0.74 K/mm3 (0.9-3.2); Lymphocytes Percent Auto 12.6 % (18.3-44.2); Mean Corpuscular HGB Conc 31.9 g/dl (32-36); Mean Corpuscular Hemoglobin 30.3 pg (26-34); Mean Corpuscular Volume 95.2 fl (80-100); Mean Platelet Volume 12.3 fl (7.4-10.4); Monocytes Absolute Auto 0.5 K/mm3 (0.1-0.6); Monocytes Percent Auto 8.2 % (2.6-8.5); Neutrophils Absolute Auto 4.4 K/mm3 (1.3-6.7); Neutrophils Percent Auto 74.6 % (45.5-73.1); Platelet Count Result 146 k/mm3 (150-375); Red Cell Distribution Width 13.6 % (11.5-14.5); White Blood Count 5.9 K/mm3 (4.5-10.0)
[2024-03-22 06:28] LABS: Glucose Point of Care 111 mg/dl (65-105)
[2024-03-22 06:30] LABS: Alanine Aminotransferase 147 U/L (6-50); Albumin Level 2.3 g/dL (3.5-5.1); Alkaline Phosphatase 228 U/L (38-126); Anion Gap 1 mmol/L (4-12); Aspartate Amino Transferase 73 U/L (17-59); Bilirubin,Total 0.5 mg/dL (0.2-1.3); Blood Urea Nitrogen 21 mg/dL (9-20); Calcium 8.4 mg/dL (8.4-10.2); Carbon Dioxide 25 mmol/L (22-30); Chloride 116 mmol/L (98-107); Estimated CRCL calculation 61 ml/min; Estimated Glomerular Filt Rate > 60; Glucose 116 mg/dL (65-110); Potassium 3.6 mmol/L (3.4-5.0); Sodium 142 mmol/L (137-145)
[2024-03-22 06:39] LABS: Procalcitonin 0.8 ng/mL
[2024-03-22 06:48] LABS: Erythrocyte Sedimentation Rate > 140 mm/hr (0-20)
--- NOTE | 2024-03-22 08:51 | P.PNIM_ITS ---
Progress Note: A&P Assessment and Plan (1) Sepsis: Qualifiers: Acute respiratory failure type: with hypoxia Sepsis acute organ dysfunction status: with acute organ dysfunction Sepsis type: sepsis due to unspecified organism Severe sepsis acute organ dysfunction type: acute respiratory failure Severe sepsis shock status: without septic shock Qualified Code(s): A41.9 - Sepsis, unspecified organism; R65.20 - Severe sepsis without septic shock; J96.01 - Acute respiratory failure with hypoxia Code(s): A41.9 - Sepsis, unspecified organism Status: Resolved Assessment and Plan: Sepsis Low grade temp Patient meets sepsis criteria with tachycardia, tachypnea and leukocytosis in the setting of acute aspiration with aspiration pneumonia and multiple lobes a right lung with associated hypoxic respiratory failure. BP's soft, 95/50 on admission, normalized with fluids --Blood cultures negative x2 --Temp 99.7 yesterday, 99.2 today --follow CBC (2) Aspiration pneumonia: Qualifiers: Aspiration pneumonia type: unspecified Laterality: right Lung location: unspecified part of lung Qualified Code(s): J69.0 - Pneumonitis due to inhalation of food and vomit Code(s): J69.0 - Pneumonitis due to inhalation of food and vomit Status: Acute Assessment and Plan: Treating aspiration pneumonia. Had an episode of emesis 03/22 Chest x-ray Airspace opacities in right mid and lower lung zones and left lower lung zone with mild worsening on the left, consistent with pneumonia --Continue Unasyn --Frequent suctioning --Discuss with facility if able to schedule suctioning (3) COPD (chronic obstructive pulmonary disease): Qualifiers: COPD type: COPD with acute lower respiratory infection Qualified Code(s): J44.0 - Chronic obstructive pulmonary disease with (acute) lower respiratory infection Code(s): J44.9 - Chronic obstructive pulmonary disease, unspecified Status: Acute Assessment and Plan: COPD Pulmononary following, appreciate recommendations Continuing Duonebs q6 prn (4) AMS (altered mental status): Qualifiers: Altered mental status type: unspecified Qualified Code(s): R41.82 - Altered mental status, unspecified Code(s): R41.82 - Altered mental status, unspecified Status: Chronic Assessment and Plan: Seems at baseline. Hx dementia (5) Transaminitis: Code(s): R74.01 - Elevation of levels of liver transaminase levels Status: Chronic Assessment and Plan: Transaminitis Alk phos 260>166<235>228, ALT 399>181<208>147, AST 136> 111<134>73, TBili 0.9<0.8>0.5 03/21 US abdomen no gallstones or gallbladder wall thickening --Follow LFT's if new symptoms (6) Dementia: Qualifiers: Dementia behavioral or psychological symptom: unspecified whether behavioral, psychotic, or mood disturbance or anxiety Dementia severity: severe Dementia type: unspecified type Qualified Code(s): F03.C0 - Unspecified dementia, severe, without behavioral disturbance, psychotic disturbance, mood disturbance, and anxiety Code(s): F03.90 - Unspecified dementia, unspecified severity, without behavioral disturbance, psychotic disturbance, mood disturbance, and anxiety Status: Chronic Assessment and Plan: Dementia Hx G-tube, malnutrition Supportive care Turn q2 Respiratory failure likely related to dementia and inability to clear secretions due to mental status (7) Acute hypoxemic respiratory failure: Code(s): J96.01 - Acute respiratory failure with hypoxia Status: Acute Assessment and Plan: Acute hypoxic respiratory failure Aspiration pneumonia Started empiric rocephin IM outpatient, azithromycin, Vancomycin, changed to Unasyn. Weaned off oxygen. MRSA PCR was negative. Still has a coarse upper airway, worsening infiltrates on chest x-ray. Pulmonary following, appreciate recommendations --Continue Unasyn --Aspiration precautions, elevate HOB --NPO. Dry mouth, add artificial saliva, frequent oral care. Add peridex --Suctioning prn --Trial of flonase and ipatropium nasal spray (8) Anemia: Code(s): D64.9 - Anemia, unspecified Status: Acute Assessment and Plan: Blood count trending down during admission. 15.2/46.1>9.4/29.5 --Started a PPI IV BID --GI consult Plan Time Spent With Patient Time: 62 minutes Subjective Date/time seen: 03/22/24 08:51 Interval history: Blood count trending down, 15>9.4 since admission. Still has a low grade temp. Pulmonary weaned to RA today. Desat overnight and needed suctioning. Still has a lot of upper airway secretions, unable to clear them on his own Left a message with HARSHAD Lane [phone] Hospital course: 79-year-old with a history of dementia and nonverbal, CVA, coronary artery disease, CKD, status post PEG 11/13/2023, [facility]. Recently vomited at the [facility] and became hypoxic. Patient has had prior ED visits and hospitalizations for PEG tube removal as he pulls this out at the retirement. In the emergency department he had copious secretions with difficulty coughing requiring frequent suctioning, improved with Deep suctioning. He required 6 L nasal cannula in the emergency department with saturations 96%. Blood pressure 120/81, heart rate 102. White blood cell count 9.7, creatinine 1.2, BUN 47, COVID influenza and RSV RT PCR studies negative. Chest x-ray showed right lung infiltrate. CT of the chest showed posterior right upper lobe, right lower lobe infiltrates, right middle lobe infiltrates as well with some debris in the right middle lobe and right lower lobe. Patient was admitted for aspiration pneumonia and started on ceftriaxone, azithromycin and given vancomycin. DuoNebs were initiated. Pulmonary was consulted He has been weaned back to room air. Low grade temp 03/21, 99.9. Chest x-ray with worsening right mid and lower lung infiltrates, increased left lung infiltrates. Blood count trending down during admission, 15.2/46.1>9.4/29.5. GI consulted. 03/18 CT diagnostic chest wo con FINDINGS: There is moderate emphysema. There is mild scarring at left lung apex. There are airspace opacities in all right lung lobes with a posterior lower lung predominance, consistent with pneumonia. Calcified bilateral lung nodules and calcified right hilar lymph nodes are consistent with old granulomatous disease. There is a 5 mm nodule in left upper lobe, likely benign. There is material in the bronchi in right middle lobe and right lower lobe. There is mild dependent atelectasis in left lower lobe. No pleural effusion. The heart size is normal. No pericardial effusion. There is mild mediastinal lymphadenopathy. A gastrostomy tube is partially visualized. There is a chronic compression fractur e of L2. There are bridging endplate osteophytes at multiple levels in the spine, consistent with diffuse idiopathic skeletal hyperostosis (DISH). IMPRESSION: 1. Right-sided pneumonia with a posterior and lower lung predominance. 2. Material in the right middle lobe and right lower lobe bronchi, which may be mucous plugging or aspirated material. 3. Moderate emphysema. 4. Mild mediastinal lymphadenopathy, likely reactive. 03/21/24 Ultrasound abdomen No hepatic or pancreatic space-occupying mass lesion is detected. Normal hepatopedal portal venous flow direction. The common bile duct measures 1.9 mm, normal. No gallstones or gallbladder wall thickening or pericholecystic fluid is detected. Normal splenic size. Right kidney measures 9.5 cm length, left kidney 9.3 cm length. No renal mass lesion or hydronephrosis is detected. Review of Systems Review of Systems: ROS unobtainable: Yes unobtainable due to medical condition (Dementia) and unobtainable due to mental status Exam Narrative: CONSTITUTIONAL: Nonverbal, male pt sitting/lying in bed at this time in no acute distress. HENMT: head is atraumatic and normocephalic. Poor oral hygiene present. Dry MM. Coarse upper airway NECK: Limited range of motion RESPIRATORY: Crackles present BLL, Poor effort for inspiration and does not follow commands. CARDIO: RRR, S1 and S2 present. No S3, S4, m,r,g,h GI: Soft, NT, BS present x4 quads without any distention. No peritoneal signs. : Incontinent SKIN: Stage 1 wound x2 to the right hip. Dressing in place. Small skin tear also to right upper thigh posteriorly. NEURO: At baseline, moves all extremities, nonverbal Objective Data Vital Signs Vital Signs: Vital Signs - 24 hr 03/21/24 09:03 03/21/24 11:35 03/21/24 11:35 Temperature Pulse Rate 71 Respiratory Rate 20 Blood Pressure Pulse Oximetry 97 Oxygen Delivery Room Air Room Air Oxygen Flow Rate Fraction of Inspired Oxygen 03/21/24 11:45 03/21/24 12:00 03/21/24 14:00 Temperature 97.7 F Pulse Rate 70 73 95 Respiratory Rate 20 19 Blood Pressure 124/76 Pulse Oximetry 96 Oxygen Delivery Oxygen Flow Rate Fraction of Inspired Oxygen 03/21/24 15:48 03/21/24 15:48 03/21/24 15:56 Temperature Pulse Rate 89 95 Respiratory Rate 16 20 Blood Pressure Pulse Oximetry 97 Oxygen Delivery Room Air Oxygen Flow Rate Fraction of Inspired Oxygen 03/21/24 16:00 03/21/24 19:39 03/21/24 19:41 Temperature Pulse Rate 87 83 Respiratory Rate 16 Blood Pressure Pulse Oximetry 93 Oxygen Delivery Nasal Cannula Oxygen Flow Rate 1 Fraction of Inspired Oxygen 03/21/24 19:44 03/21/24 20:00 03/21/24 20:00 Temperature Pulse Rate 87 93 87 Respiratory Rate 16 20 Blood Pressure Pulse Oximetry 98 Oxygen Delivery Nasal Cannula Oxygen Flow Rate 1 Fraction of Inspired Oxygen 21 03/21/24 21:17 03/21/24 23:39 03/21/24 23:46 Temperature 99.4 F Pulse Rate 93 82 80 Respiratory Rate 20 16 16 Blood Pressure 132/79 Pulse Oximetry 98 Oxygen Delivery Oxygen Flow Rate Fraction of Inspired Oxygen 03/22/24 00:03 03/22/24 04:00 03/22/24 04:15 Temperature Pulse Rate 77 68 75 Respiratory Rate 22 H Blood Pressure Pulse Oximetry Oxygen Delivery Oxygen Flow Rate Fraction of Inspired Oxygen 03/22/24 04:20 03/22/24 06:00 03/22/24 07:53 Temperature 99.2 F Pulse Rate 81 79 Respiratory Rate 22 H 20 Blood Pressure 126/67 Pulse Oximetry 97 96 Oxygen Delivery Nasal Cannula Oxygen Flow Rate 2 Fraction of Inspired Oxygen 28 03/22/24 07:53 03/22/24 08:00 Temperature Pulse Rate 65 66 Respiratory Rate 20 20 Blood Pressure Pulse Oximetry Oxygen Delivery Oxygen Flow Rate Fraction of Inspired Oxygen Intake/Output Intake/Output: Intake & Output 03/19/24 03/20/24 03/21/24 03/22/24 23:59 23:59 23:59 23:59 Intake Total 2200 2400 2400 1100 Balance 2200 2400 2400 1100 Meds/Results Medications: Active Medications Generic Name Dose Route Start Last Admin Trade Name Freq PRN Reason Stop Dose Admin Acetaminophen 650 mg 03/18/24 22:33 Acetaminophen 325 Mg Tablet FEED TUBE Q4H PRN fever or pain 1-3 Albuterol/Ipratropium 3 ml 03/19/24 16:00 03/22/24 07:53 Ipratropium 0.5 Mg/Albuterol Sulfate 2.5 Mg Ampul.Neb 3 Ml INHALATION 3 ml Q4HRT MIRNA Administration Aspirin 81 mg 03/20/24 09:00 03/21/24 09:04 Aspirin 81 Mg Chewable Tablet FEED TUBE 81 mg DAILY MIRNA Administration Atorvastatin Calcium 20 mg 03/19/24 18:00 03/21/24 17:21 Atorvastatin 20 Mg Tablet FEED TUBE 20 mg QPM MIRNA Administration Bisacodyl 10 mg 03/18/24 22:33 Bisacodyl 10 Mg Suppository RECTAL DAILY PRN Constipation Bisacodyl 10 mg 03/21/24 09:00 03/21/24 10:37 Bisacodyl 10 Mg Suppository RECTAL Not Given QAM MIRNA Chlorhexidine Gluconate 15 ml 03/21/24 09:00 03/21/24 17:24 Chlorhexidine Gluconate 0.12% Oral Rinse 473 Ml Btl (*Bkc) SWISH/SPIT Not Given BID MIRNA Cyanocobalamin 1,000 mcg 03/19/24 09:00 03/21/24 09:04 Cyanocobalamin 1,000 Mcg Tablet FEED TUBE 1,000 mcg DAILY MIRNA Administration Docusate Sodium 100 mg 03/19/24 09:00 03/21/24 20:06 Docusate Sodium Liq 100 Mg/10 Ml Udc FEED TUBE Not Given Q12HR MIRNA Donepezil HCl 5 mg 03/19/24 21:00 03/21/24 20:07 Donepezil Hcl 5 Mg Tablet PO 5 mg HS MIRNA Administration Doxazosin Mesylate 1 mg 03/19/24 18:00 03/21/24 17:22 Doxazosin Mesylate 1 Mg Tablet FEED TUBE 1 mg QPM MIRNA Administration Heparin Sodium (Porcine) 5,000 units 03/19/24 09:00 03/21/24 20:07 Heparin Sodium 5,000 Units/Ml Vial SUB-Q 5,000 units Q12HR MIRNA Administration Hydroxyzine Pamoate 25 mg 03/18/24 22:45 03/21/24 20:07 Hydroxyzine Pamoate 25 Mg Capsule FEED TUBE 25 mg Q12HR MIRNA Administration Sodium Chloride 1,000 mls @ 100 mls/hr 03/18/24 20:10 03/22/24 00:38 Normal Saline Iv IV CONT 100 mls/hr .Q10H MIRNA Administration Ampicillin Sodium/Sulbactam Sodium 3 gm in 100 mls @ 200 mls/hr 03/19/24 11:00 03/22/24 05:17 Unasyn 3 Gm/Ns 100 Ml IVPB 200 mls/hr Q6HR MIRNA Administration Loratadine 10 mg 03/18/24 22:40 Loratadine 10 Mg Tablet FEED TUBE DAILY PRN Congestion Magnesium Hydroxide 30 ml 03/18/24 22:33 Magnesium Hydroxide Susp 30 Ml Udc FEED TUBE DAILY PRN Constipation Pantoprazole Sodium 40 mg 03/22/24 09:00 Pantoprazole Sodium Iv 40 Mg Vial IV PUSH Q12HR MIRNA Saccharomyces Boulardii 250 mg 03/19/24 09:00 03/21/24 17:22 Saccharomyces Boulardii 250 Mg Capsule FEED TUBE 250 mg BID MIRNA Administration Saliva Substitute 10 ml 03/20/24 13:00 03/21/24 20:07 Saliva Substitute Rinse 473 Ml Bottle PO 10 ml QID MIRNA Administration Timolol Maleate 1 drop 03/20/24 09:50 03/21/24 20:07 Timolol Maleate 0.5% Op Soln 5 Ml Bottle EACH EYE 1 drop Q12HR MIRNA Administration Radiology Results: ITS Impressions Chest CT 03/18/24 17:48 IMPRESSION: 1. Right-sided pneumonia with a posterior and lower lung predominance. 2. Material in the right middle lobe and right lower lobe bronchi, which may be mucous plugging or aspirated material. 3. Moderate emphysema. 4. Mild mediastinal lymphadenopathy, likely reactive. Abdomen Ultrasound 03/21/24 16:41 IMPRESSION: No significant abnormality Chest X-Ray 03/22/24 08:01 IMPRESSION: 1. Airspace opacities in right mid and lower lung zones and left lower lung zone with mild worsening on the left, consistent with pneumonia. Labs Labs: Laboratory Results - last 24 hr 03/21/24 03/21/24 03/21/24 04:42 12:33 17:00 WBC RBC Hgb Hct MCV MCH MCHC RDW Plt Count MPV Immature Gran % (Auto) Neut % (Auto) Lymph % (Auto) [place] % (Auto) Eos % (Auto) Baso % (Auto) Lymph # (Auto) [place] # (Auto) Eos # (Auto) Baso # (Auto) Abs Immat Gran (auto) Absolute Neuts (auto) Absolute Nucleated RBC Nucleated RBC % ESR Sodium Potassium Chloride Carbon Dioxide Anion Gap BUN Creatinine Estim Creat Clear Calc Estimated GFR Glucose POC Capillary Glucose 82 115 H Calcium Total Bilirubin AST ALT Alkaline Phosphatase C-Reactive Protein Total Protein Albumin Procalcitonin 1.3 03/21/24 03/21/24 03/22/24 19:09 23:27 05:06 WBC 5.9 RBC 3.10 L Hgb 9.4 L Hct 29.5 L MCV 95.2 MCH 30.3 MCHC 31.9 L RDW 13.6 Plt Count 146 L MPV 12.3 H Immature Gran % (Auto) 0.9 H Neut % (Auto) 74.6 H Lymph % (Auto) 12.6 L [place] % (Auto) 8.2 Eos % (Auto) 3.4 Baso % (Auto) 0.3 Lymph # (Auto) 0.74 L [place] # (Auto) 0.5 Eos # (Auto) 0.2 Baso # (Auto) 0.0 Abs Immat Gran (auto) 0.05 H Absolute Neuts (auto) 4.4 Absolute Nucleated RBC 0.000 Nucleated RBC % 0.0 ESR > 140 H Sodium Potassium Chloride Carbon Dioxide Anion Gap BUN Creatinine Estim Creat Clear Calc Estimated GFR Glucose POC Capillary Glucose 118 H 117 H Calcium Total Bilirubin AST ALT Alkaline Phosphatase C-Reactive Protein Total Protein Albumin Procalcitonin 0.8 03/22/24 03/22/24 05:07 06:21 WBC RBC Hgb Hct MCV MCH MCHC RDW Plt Count MPV Immature Gran % (Auto) Neut % (Auto) Lymph % (Auto) [place] % (Auto) Eos % (Auto) Baso % (Auto) Lymph # (Auto) [place] # (Auto) Eos # (Auto) Baso # (Auto) Abs Immat Gran (auto) Absolute Neuts (auto) Absolute Nucleated RBC Nucleated RBC % ESR Sodium 142 Potassium 3.6 Chloride 116 H Carbon Dioxide 25 Anion Gap 1 L BUN 21 H Creatinine 0.80 Estim Creat Clear Calc 61 Estimated GFR > 60 Glucose 116 H POC Capillary Glucose 111 H Calcium 8.4 Total Bilirubin 0.5 AST 73 H ALT 147 H Alkaline Phosphatase 228 H C-Reactive Protein 15.0 H Total Protein 5.0 L Albumin 2.3 L Procalcitonin Quality VTE Prophylaxis VTE prophylaxis: pharmacologic ordered Hospitalist MIPS Advance Care Plan I have confirmed that the patient's Advanced Care Plan is present, code status is documented, or surrogate decision maker is listed in patient medical record.: Yes Medication Reconciliation I have utilized all available resources to obtain, update and review the patients current medications (includes all prescriptions, OTC, herbals, cannabis, and nutritional supplements).: Yes
[2024-03-22] MEDS: hydrOXYzine pamoate 25 MG CAPSULE FEED TUBE ×2 (09:03→20:13)
[2024-03-22] MEDS: DOCUSATE SODIUM LIQ 100 MG/10 ML UDC FEED TUBE (09:03)
[2024-03-22] MEDS: ASPIRIN 81 MG CHEWABLE TABLET FEED TUBE (09:03)
[2024-03-22] MEDS: TIMOLOL MALEATE 0.5% OP SOLN 5 ML BOTTLE 1 DROP EACH EYE ×2 (09:03→20:14)
[2024-03-22] MEDS: CYANOCOBALAMIN 1,000 MCG TABLET 1000 MCG FEED TUBE (09:03)
[2024-03-22] MEDS: SACCHAROMYCES BOULARDII 250 MG CAPSULE FEED TUBE ×2 (09:03→17:28)
[2024-03-22] MEDS: PANTOPRAZOLE SODIUM IV 40 MG VIAL IV PUSH ×2 (09:07→20:13)
[2024-03-22] MEDS: CHLORHEXIDINE GLUCONATE 0.12% ORAL RINSE 473 ML BTL (*BKC) 15 ML SWISH/SPIT ×2 (09:07→17:29)
[2024-03-22] MEDS: HEPARIN SODIUM 5,000 UNITS/ML VIAL 5000 UNITS SUB-Q ×2 (09:07→20:13)
[2024-03-22] MEDS: SALIVA SUBSTITUTE RINSE 473 ML BOTTLE 10 ML PO ×3 (09:07→20:14)
--- NOTE | 2024-03-22 09:37 | P.PNPL_ITS ---
Progress Note: A&P Assessment and Plan (1) Aspiration pneumonia: Qualifiers: Aspiration pneumonia type: unspecified Laterality: right Lung location: unspecified part of lung Qualified Code(s): J69.0 - Pneumonitis due to inhalation of food and vomit Code(s): J69.0 - Pneumonitis due to inhalation of food and vomit Status: Acute Plan Patient with a PEG tube on tube feedings and NPO at the care home with emesis on 03/18/24 followed by aspiration at the care home. He required suctioning at the care home in supplemental oxygen. Chest x-ray in the emergency department showed right-sided infiltrates and CT scan of the chest showed posterior right upper lobe, right lower lobe and infiltrates in the right middle lobe all in a dependent area consistent with aspiration. he required 6 L in the emergency department. 03/19/24: When I saw the patient today is nonverbal, he does not cough when I requested him to cough. He was on 4 L nasal cannula with saturations 98%. I decreased him to room air and after 8 minutes his saturations remain 96%. I did use yankour and cleared oral secretions from his mouth. He had no upper airway rhonchorous sounds. His white blood cell count is 11.6, his creatinine is 1.2 with a BUN of 40, his MRSA nasal swab PCR is negative. plan: The patient did aspirate. He is on tube feedings and NPO so he would have not aspirated any solid food particles. He had debris in right lower lobe and right middle lobe airways on his CT scan likely mucous. Chest x-ray today demonstrates no lobar collapse. Patient's oxygenation has improved. There is no need for bronchoscopy at this time. Patient was empirically started on vancomycin, ceftriaxone and azithromycin. His MRSA nasal swab is negative. Will discontinue vancomycin, ceftriaxone and azithromyci nand change the patient to unasyn 3 gm Q 6 hours. Will continue DuoNebs Q 6 as a history of COPD with mild apical predominant centrilobular emphysema on a CT scan of the chest. 03/20/24: patient is nonverbal attempting to mouth words. Patient had rhonchorous breath sounds when I entered the room. I asked him to cough and he did not follow commands. I used a Yankauer and suction thick secretions from the back of his oropharynx. Room air saturations 97%. White blood cell count 8.2, creatinine 0.8, afebrile. Weight is 65 kg. patient is clinically stable. He is now on room air. Leukocytosis has improved. He is afebrile. Plan: Patient is day 3 total antibiotics, day 2 Unasyn. Clinically he is has improved. It should be noted that the patient cannot clear his oral secretions and he is at high risk for subsequent aspiration events. I will check a chest x-ray on 03/21 and if this is stable would be ready for discharge on these pulmonary medications. Augmentin suspension 400 -57/5 ml at 10 ml BID x3 days (to finish a 7 day course of total antibiotics). 03/21/24: Patient is nonverbal, attempts to mouth words but does not follow any commands. Rhonchorous upper airway sounds with an inability to cough to c ommand and inability to clear his secretions. Yankauer again used with suctioning of secretions from the back of his mouth. Room air saturation 96%. Patient had a temperature to 99.9 this morning. Chest x-ray shows worsening right mid and lower lung infiltrates and increased left lower lung infiltrates. Plan: Patient with a low-grade temperature this morning and chest x-ray with worsening right middle and lower and left lower lobe infiltrates. Oxygenation remained stable on room air. Etiology for low-grade fever and worsening infiltrates include continued aspiration events, at this time will follow patient's temperature curve and I will not change his antibiotics and continue Unasyn day 3. Total antibiotics is day 4. Will send testing for additional etiologies of low-grade fever (LFTs, lipase). Spoke with the nurse. The patient has had formed bowel movements. will repeat chest x-ray on 03/22/2024. 03/22/24: Nonverbal, unable to cough up secretions. Patient has episodes of inability to cough secretions with hypoxia. After suctioning he requires no oxygen. When I enter the room he was on 2 L nasal cannula saturations 100. I changed him to room air and after 8 minutes his saturations were 97%. White blood cell count 5.9, creatinine 0.8. Procalcitonin 0.8. He has been afebrile. Chest x-ray with continued right lung infiltrates worsening infiltrates left lower lobe. Plan: Patient remains afebrile, no leukocytosis, procalcitonin decreased today it is 0.8, chest x-ray with continued right and worsening left lower lobe infiltrate. I suspect his left lower lobe infiltrates are related to retained and/or aspirated secretions, atelectasis rather than a new bacterial pneumonia. Total antibiotics day 5, Unasyn day 4. As predicted he has continued inability to clear secretions with hypoxia that is transient and resolved after he has deep suctioning to remove secretions. Unfortunately this issue is a continuation of his dementia and I suspect this will continue to happen in the future. I do not favor using anticholinergic agents to dry up his secretions as this may result in worsening mucus plugging and lobar collapse. I will continue duo nebulizers Q 4 hours. I would not performed Vest therapy with the patient's G-tube and history of him removing the G-tube. We will need to determine if Anita Dee can provide the patient with schedule deep suctioning as this will be required on discharge if the family wishes for continued care in an attempt to prevent recurrent mucus plugging, aspiration and hospitalization. Discussed with Albertina Camarena, will follow with you. Subjective Date/time seen: 03/22/24 09:37 Interval history: 03/19/2024: This is a new pulmonary consult for aspiration pneumonia. 79-year-old with a history of dementia, CVA, coronary artery disease, CKD, status post PEG 11/13/2023 on tube feedings at the care home. Regarding his dementia patient is nonverbal and to my exam today did not follow any verbal commands. Patient has had multiple emergency room department visits and hospitalizations for PEG tube removal as he pulls this out at the care home. On 03/18/2024 the patient vomited at the care home with a witnessed aspiration. They attempted to clear his airway but he was hypoxic and they gave him supplemental oxygen and he was transferred to the emergency department. In the emergency department he had copious secretions with difficulty coughing. Deep suction cleared his secretions and improved his respiratory status. He required 6 L nasal cannula in the emergency department with saturations 96%. Blood pressure 120/81, heart rate 102. White blood cell count 9.7, creatinine 1.2, BUN 47, COVID influenza and RSV RT PCR studies negative. Chest x-ray showed right lung infiltrate. CT of the chest showed posterior right upper lobe, right lower lobe infiltrates, right middle lobe infiltrates as well with some debris in the right middle lobe and right lower lobe. Patient was admitted for aspiration pneumonia and started on ceftriaxone, azithromycin and given vancomycin. DuoNebs were initiated. 03/19/2024: the daytime nurse told me that he had to be suctioned with a Yankauer 2 or 3 times throughout the night and also had deep suctioning through the nose through the night. She related there was a small amount of blood. When I saw the patient today is nonverbal, he does not cough when I requested him to cough. He was on 4 L nasal cannula with saturations 98%. I decreased him to room air and after 8 minutes his saturations remain 96%. I did use yankour and cleared oral secretions from his mouth. He had no upper airway rhonchorous sounds. His white blood cell count is 11.6, his creatinine is 1.2 with a BUN of 40, his MRSA nasal swab PCR is negative. 03/20/24: patient is nonverbal attempting to mouth words. Patient had rhonchorous breath sounds when I entered the room. I asked him to cough and he did not follow commands. I used a Yankauer and suction thick secretions from the back of his oropharynx. Room air saturations 97%. White blood cell count 8.2, creatinine 0.8, afebrile. Weight is 65 kg. 03/21/24: Patient is nonverbal, attempts to mouth words but does not follow any commands. rhonchorous upper airway sounds with an inability to cough to command and inability to clear his secretions. Yankauer again used with suctioning of secretions from the back of his mouth. Room air saturation 96%. Patient had a temperature to 99.9 this morning. Chest x-ray shows worsening right mid and lower lung infiltrates and increased left lower lung infiltrates. 03/22/24: Nonverbal, unable to cough up secretions. Patient has episodes of inability to cough secretions with hypoxia. After suctioning he requires no oxygen. When I enter the room he was on 2 L nasal cannula saturations 100. I changed him to room air and after 8 minutes his saturations were 97%. White blood cell count 5.9, creatinine 0.8. Procalcitonin 0.8. He has been afebrile. Chest x-ray with continued right lung infiltrates worsening infiltrates left lower lobe. DATA: EXAMINATION:CT diagnostic chest wo con DATE: 03/18/2024 17:46 INDICATION: Pneumonia. Abnormal chest radiographs. TECHNIQUE: Computed tomography (CT) of the chest was performed without intravenous contrast. Automated exposure control and iterative reconstruction technique were employed. The dose-length product (DLP) was 157.84 mGy-cm. COMPARISON: Chest single view 03/18/2024 FINDINGS: There is moderate emphysema. There is mild scarring at left lung apex. There are airspace opacities in all right lung lobes with a posterior lower lung predominance, consistent with pneumonia. Calcified bilateral lung nodules and calcified right hilar lymph nodes are consistent with old granulomatous disease. There is a 5 mm nodule in left upper lobe, likely benign. There is material in the bronchi in right middle lobe and right lower lobe. There is mild dependent atelectasis in left lower lobe. No pleural effusion. The heart size is normal. No pericardial effusion. There is mild mediastinal lymphadenopathy. A gastrostomy tube is partially visualized. There is a chronic compression fracture of L2. There are bridging endplate osteophytes at multiple levels in the spine, consistent with diffuse idiopathic skeletal hyperostosis (DISH). IMPRESSION: 1. Right-sided pneumonia with a posterior and lower lung predominance. 2. Material in the right middle lobe and right lower lobe bronchi, which may be mucous plugging or aspirated material. 3. Moderate emphysema. 4. Mild mediastinal lymphadenopathy, likely reactive. Review of Systems Review of Systems: ROS unobtainable: Yes unobtainable due to mental status Exam Const: General: comfortable and no acute distress Orientation/consciousness: oriented to person, oriented to place and oriented to time Other: does not follow commands HENMT: Head: normal to inspection Ears: hearing grossly normal bilaterally Eyes: General: appearance normal, both eyes and all related structures Neck: Neck: normal visual inspection Chest: Chest palpation & inspection: normal inspection of the chest Resp: Effort & Inspection: normal respiratory effort and able to speak in complete sentences Auscultation: no crackles, no rales, rhonchi, no wheezes and lung sounds not diminished Other: Does not follow commands to take a deep breath on request. Rhonchorous upper airway breath sounds Cardio: Jugular venous distension: no JVD GI: Inspection: normal to inspection Other: peg in place Skin: General skin exam: normal color Neuro: General: oriented to person, oriented to place and oriented to time Other: tracks with eyes, attempts to mouth words at times, does not follow any verbal commands. Extrem: General: normal to inspection Other: No edema Psych: Appearance: grossly normal Objective Data Vital Signs Vital Signs: Vital Signs - 24 hr 03/21/24 11:35 03/21/24 11:35 03/21/24 11:45 Temperature Pulse Rate 71 70 Respiratory Rate 20 20 Blood Pressure Pulse Oximetry 97 Oxygen Delivery Room Air Oxygen Flow Rate Fraction of Inspired Oxygen 03/21/24 12:00 03/21/24 14:00 03/21/24 15:48 Temperature 36.5 C Pulse Rate 73 95 Respiratory Rate 19 Blood Pressure 124/76 Pulse Oximetry 96 97 Oxygen Delivery Room Air Oxygen Flow Rate Fraction of Inspired Oxygen 03/21/24 15:48 03/21/24 15:56 03/21/24 16:00 Temperature Pulse Rate 89 95 87 Respiratory Rate 16 20 Blood Pressure Pulse Oximetry Oxygen Delivery Oxygen Flow Rate Fraction of Inspired Oxygen 03/21/24 19:39 03/21/24 19:41 03/21/24 19:44 Temperature Pulse Rate 83 87 Respiratory Rate 16 16 Blood Pressure Pulse Oximetry 93 Oxygen Delivery Nasal Cannula Oxygen Flow Rate 1 Fraction of Inspired Oxygen 03/21/24 20:00 03/21/24 20:00 03/21/24 21:17 Temperature 37.4 C Pulse Rate 93 87 93 Respiratory Rate 20 20 Blood Pressure 132/79 Pulse Oximetry 98 98 Oxygen Delivery Nasal Cannula Oxygen Flow Rate 1 Fraction of Inspired Oxygen 03/21/24 23:39 03/21/24 23:46 03/22/24 00:03 Temperature Pulse Rate 82 80 77 Respiratory Rate 16 16 Blood Pressure Pulse Oximetry Oxygen Delivery Oxygen Flow Rate Fraction of Inspired Oxygen 03/22/24 04:00 03/22/24 04:15 03/22/24 04:20 Temperature Pulse Rate 68 75 81 Respiratory Rate 22 H 22 H Blood Pressure Pulse Oximetry Oxygen Delivery Oxygen Flow Rate Fraction of Inspired Oxygen 03/22/24 06:00 03/22/24 07:53 03/22/24 07:53 Temperature 37.3 C Pulse Rate 79 65 Respiratory Rate 20 20 Blood Pressure 126/67 Pulse Oximetry 97 96 Oxygen Delivery Nasal Cannula Oxygen Flow Rate 2 Fraction of Inspired Oxygen 28 03/22/24 08:00 Temperature Pulse Rate 66 Respiratory Rate 20 Blood Pressure Pulse Oximetry Oxygen Delivery Oxygen Flow Rate Fraction of Inspired Oxygen Intake/Output Intake/Output: Intake & Output 03/19/24 03/20/24 03/21/24 03/22/24 23:59 23:59 23:59 23:59 Intake Total 2200 2400 2400 1100 Balance 2200 2400 2400 1100 Meds/Results Medications: Active Medications Generic Name Dose Route Start Last Admin Trade Name Freq PRN Reason Stop Dose Admin Acetaminophen 650 mg 03/18/24 22:33 Acetaminophen 325 Mg Tablet FEED TUBE Q4H PRN fever or pain 1-3 Albuterol/Ipratropium 3 ml 03/19/24 16:00 03/22/24 07:53 Ipratropium 0.5 Mg/Albuterol Sulfate 2.5 Mg Ampul.Neb 3 Ml INHALATION 3 ml Q4HRT MIRNA Administration Aspirin 81 mg 03/20/24 09:00 03/22/24 09:03 Aspirin 81 Mg Chewable Tablet FEED TUBE 81 mg DAILY MIRNA Administration Atorvastatin Calcium 20 mg 03/19/24 18:00 03/21/24 17:21 Atorvastatin 20 Mg Tablet FEED TUBE 20 mg QPM MIRNA Administration Bisacodyl 10 mg 03/18/24 22:33 Bisacodyl 10 Mg Suppository RECTAL DAILY PRN Constipation Bisacodyl 10 mg 03/21/24 09:00 03/22/24 09:07 Bisacodyl 10 Mg Suppository RECTAL Not Given QAM MIRNA Chlorhexidine Gluconate 15 ml 03/21/24 09:00 03/22/24 09:07 Chlorhexidine Gluconate 0.12% Oral Rinse 473 Ml Btl (*Bkc) SWISH/SPIT 15 ml BID MIRNA Administration Cyanocobalamin 1,000 mcg 03/19/24 09:00 03/22/24 09:03 Cyanocobalamin 1,000 Mcg Tablet FEED TUBE 1,000 mcg DAILY MIRNA Administration Docusate Sodium 100 mg 03/19/24 09:00 03/22/24 09:03 Docusate Sodium Liq 100 Mg/10 Ml Udc FEED TUBE 100 mg Q12HR MIRNA Administration Donepezil HCl 5 mg 03/19/24 21:00 03/21/24 20:07 Donepezil Hcl 5 Mg Tablet PO 5 mg HS MIRNA Administration Doxazosin Mesylate 1 mg 03/19/24 18:00 03/21/24 17:22 Doxazosin Mesylate 1 Mg Tablet FEED TUBE 1 mg QPM MIRNA Administration Heparin Sodium (Porcine) 5,000 units 03/19/24 09:00 03/22/24 09:07 Heparin Sodium 5,000 Units/Ml Vial SUB-Q 5,000 units Q12HR MIRNA Administration Hydroxyzine Pamoate 25 mg 03/18/24 22:45 03/22/24 09:03 Hydroxyzine Pamoate 25 Mg Capsule FEED TUBE 25 mg Q12HR MIRNA Administration Sodium Chloride 1,000 mls @ 100 mls/hr 03/18/24 20:10 03/22/24 00:38 Normal Saline Iv IV CONT 100 mls/hr .Q10H MIRNA Administration Ampicillin Sodium/Sulbactam Sodium 3 gm in 100 mls @ 200 mls/hr 03/19/24 11:00 03/22/24 05:17 Unasyn 3 Gm/Ns 100 Ml IVPB 200 mls/hr Q6HR MIRNA Administration Loratadine 10 mg 03/18/24 22:40 Loratadine 10 Mg Tablet FEED TUBE DAILY PRN Congestion Magnesium Hydroxide 30 ml 03/18/24 22:33 Magnesium Hydroxide Susp 30 Ml Udc FEED TUBE DAILY PRN Constipation Pantoprazole Sodium 40 mg 03/22/24 09:00 03/22/24 09:07 Pantoprazole Sodium Iv 40 Mg Vial IV PUSH 40 mg Q12HR MIRNA Administration Saccharomyces Boulardii 250 mg 03/19/24 09:00 03/22/24 09:03 Saccharomyces Boulardii 250 Mg Capsule FEED TUBE 250 mg BID MIRNA Administration Saliva Substitute 10 ml 03/20/24 13:00 03/22/24 09:07 Saliva Substitute Rinse 473 Ml Bottle PO 10 ml QID MIRNA Administration Timolol Maleate 1 drop 03/20/24 09:50 03/22/24 09:03 Timolol Maleate 0.5% Op Soln 5 Ml Bottle EACH EYE 1 drop Q12HR MIRNA Administration Radiology Results: ITS Impressions Chest CT 03/18/24 17:48 IMPRESSION: 1. Right-sided pneumonia with a posterior and lower lung predominance. 2. Material in the right middle lobe and right lower lobe bronchi, which may be mucous plugging or aspirated material. 3. Moderate emphysema. 4. Mild mediastinal lymphadenopathy, likely reactive. Abdomen Ultrasound 03/21/24 16:41 IMPRESSION: No significant abnormality Chest X-Ray 03/22/24 08:01 IMPRESSION: 1. Airspace opacities in right mid and lower lung zones and left lower lung zone with mild worsening on the left, consistent with pneumonia. Labs Labs: Laboratory Results - last 24 hr 03/21/24 03/21/24 03/21/24 12:33 17:00 19:09 WBC RBC Hgb Hct MCV MCH MCHC RDW Plt Count MPV Immature Gran % (Auto) Neut % (Auto) Lymph % (Auto) [place] % (Auto) Eos % (Auto) Baso % (Auto) Lymph # (Auto) [place] # (Auto) Eos # (Auto) Baso # (Auto) Abs Immat Gran (auto) Absolute Neuts (auto) Absolute Nucleated RBC Nucleated RBC % ESR Sodium Potassium Chloride Carbon Dioxide Anion Gap BUN Creatinine Estim Creat Clear Calc Estimated GFR Glucose POC Capillary Glucose 82 115 H 118 H Calcium Total Bilirubin AST ALT Alkaline Phosphatase C-Reactive Protein Total Protein Albumin Procalcitonin 03/21/24 03/22/24 03/22/24 23:27 05:06 05:07 WBC 5.9 RBC 3.10 L Hgb 9.4 L Hct 29.5 L MCV 95.2 MCH 30.3 MCHC 31.9 L RDW 13.6 Plt Count 146 L MPV 12.3 H Immature Gran % (Auto) 0.9 H Neut % (Auto) 74.6 H Lymph % (Auto) 12.6 L [place] % (Auto) 8.2 Eos % (Auto) 3.4 Baso % (Auto) 0.3 Lymph # (Auto) 0.74 L [place] # (Auto) 0.5 Eos # (Auto) 0.2 Baso # (Auto) 0.0 Abs Immat Gran (auto) 0.05 H Absolute Neuts (auto) 4.4 Absolute Nucleated RBC 0.000 Nucleated RBC % 0.0 ESR > 140 H Sodium 142 Potassium 3.6 Chloride 116 H Carbon Dioxide 25 Anion Gap 1 L BUN 21 H Creatinine 0.80 Estim Creat Clear Calc 61 Estimated GFR > 60 Glucose 116 H POC Capillary Glucose 117 H Calcium 8.4 Total Bilirubin 0.5 AST 73 H ALT 147 H Alkaline Phosphatase 228 H C-Reactive Protein 15.0 H Total Protein 5.0 L Albumin 2.3 L Procalcitonin 0.8 03/22/24 06:21 WBC RBC Hgb Hct MCV MCH MCHC RDW Plt Count MPV Immature Gran % (Auto) Neut % (Auto) Lymph % (Auto) [place] % (Auto) Eos % (Auto) Baso % (Auto) Lymph # (Auto) [place] # (Auto) Eos # (Auto) Baso # (Auto) Abs Immat Gran (auto) Absolute Neuts (auto) Absolute Nucleated RBC Nucleated RBC % ESR Sodium Potassium Chloride Carbon Dioxide Anion Gap BUN Creatinine Estim Creat Clear Calc Estimated GFR Glucose POC Capillary Glucose 111 H Calcium Total Bilirubin AST ALT Alkaline Phosphatase C-Reactive Protein Total Protein Albumin Procalcitonin
[2024-03-22] MEDS: FLUTICASONE PROPIONATE 0.05% NA SPR 16 GM BTL (*BKC) 2 SPRAY NASAL (12:15)
[2024-03-22 12:35] LABS: Glucose Point of Care 118 mg/dl (65-105)
--- NOTE | 2024-03-22 13:34 | P.CONGI_ITS ---
Assessment and Plan Assessment and plan (1) Acute on chronic anemia: Code(s): D64.9 - Anemia, unspecified Status: Acute Assessment and Plan: no overt gib he had EGD x2 last few months when G-tube was placed without major findings no need to repeat endoscopic evaluation, anemia probably multifactorial will follow only as needed (2) Sepsis: Qualifiers: Sepsis type: sepsis due to unspecified organism Sepsis acute organ dysfunction status: with acute organ dysfunction Severe sepsis acute organ dysfunction type: acute respiratory failure Acute respiratory failure type: w ith hypoxia Severe sepsis shock status: without septic shock Qualified Code(s): A41.9 - Sepsis, unspecified organism; R65.20 - Severe sepsis without septic shock; J96.01 - Acute respiratory failure with hypoxia Code(s): A41.9 - Sepsis, unspecified organism Status: Resolved Assessment and Plan: here again with aspiration pneumonia, on abx (3) Aspiration pneumonia: Qualifiers: Aspiration pneumonia type: unspecified Laterality: right Lung location: unspecified part of lung Qualified Code(s): J69.0 - Pneumonitis due to inhalation of food and vomit Code(s): J69.0 - Pneumonitis due to inhalation of food and vomit Status: Acute Assessment and Plan: he is high risk because advanced dementia, he already has PEG tube but this won't prevent aspiration tolerating tube feeding (4) Acute hypoxemic respiratory failure: Code(s): J96.01 - Acute respiratory failure with hypoxia Status: Acute Assessment and Plan: improving (5) Acute encephalopathy: Code(s): G93.40 - Encephalopathy, unspecified Status: Acute (6) Dysphagia: Code(s): R13.10 - Dysphagia, unspecified Status: Acute (7) Dementia: Qualifiers: Dementia type: unspecified type Dementia severity: severe Dementia behavioral or psychological symptom: unspecified whether behavioral, psychotic, or mood disturbance or anxiety Qualified Code(s): F03.C0 - Unspecified dementia, severe, without behavioral disturbance, psychotic disturbance, mood disturbance, and anxiety Code(s): F03.90 - Unspecified dementia, unspecified severity, without behavioral disturbance, psychotic disturbance, mood disturbance, and anxiety Status: Chronic GI Consult Note Consult date/time: 03/22/24 13:34 Reason for consult: anemia HPI: Ulysses Lane is a 79 year old male with history of dementia, coronary artery disease and chronic kidney disease who presented to the hospital from [facility] via EMS due to increased work of breathing and altered mental status, admitted with low grade fever and aspiration pneumonia few days ago. I met him initially 10/2023 when I placed PEG endoscopically for dysphagia and aspiration, then new EGD was done 12/2023 after he pulled out PEG (both EGD without any other major findings otherwise), just few weeks ago he presented again to ER after pulled G-tube and was replaced that time at bedside in ER. He is treated for aspiration pneumonia, tolerating tube feeding at 50 ml/h, consult if for anemia but no report of overt gib, hgb 9.4 from baseline 12. History obtained from records as he has dementia. Review of Systems 2 Review of Systems: ROS unobtainable: Yes unobtainable due to mental status PMFSH Past Medical History Medical History (Updated 03/22/24 @ 13:39 by Clovis Holland MD) Acute on chronic anemia Non-STEMI (non-ST elevated myocardial infarction) Dyslipidemia COPD (chronic obstructive pulmonary disease) Vasomotor rhinitis Dementia Hx of malignant neoplasm of prostate Dysphagia causing pulmonary aspiration with swallowing Status post G-tube placement October 2023 Malnutrition Acute non-ST elevation myocardial infarction (NSTEMI) (03/2023) PVD (peripheral vascular disease) Erectile dysfunction Unspecified iridocyclitis Primary open-angle glaucoma, bilateral, stage unspecified Chronic kidney disease, stage 3 (moderate) Essential (primary) hypertension Surgical History Surgical History (Updated 03/18/24 @ 22:27 by Nissa Greer DO) History of colonoscopy with polypectomy Family History Family History Father Carcinoma of colon Patient's father is Family history of malignant neoplasm Mother Patient's mother is Family history unknown Social History Social History (Updated 03/18/24 @ 22:32 by Nissa Greer DO) Social History: Code status: Full code Healthcare power of real estate attorney: Zoe Lane (sister) Smoking packs per day: 1 Smoking cigarettes per day: 20.0 Years smoked: 60 Smoking pack-years: 60.00 Smoking status: Former smoker Tobacco type: cigarettes Second hand tobacco smoke exposure: No Alcohol intake: never Alcohol use details: social Substance use: never Substance use type: does not use Lack of Transportation: YES Lack of Food: Never True Current Housing: I Have Housing Concerned About Future Housing: No Difficulty Paying Gas/Electric Bills: No Difficulty Paying for Meds: No Currently Unemployed: No Education: High School Diploma/GED Difficulty w/ Childcare or Family Care: No Living arrangements: with family Spiritual care concerns: No Meds Home Medications and Allergies Home Medications ?Medication ?Instructions ?Recorded ?Confirmed ?Type cyanocobalamin (vitamin B-12) 1,000 mcg feeding tube DAILY 04/03/21 03/18/24 History 1,000 mcg tablet memantine 10 mg tablet 10 mg feeding tube DAILY 04/03/21 03/18/24 History aspirin 81 mg tablet,delayed 81 mg feeding tube DAILY 06/14/22 03/18/24 History release (Adult Aspirin Regimen) cetirizine 10 mg tablet 10 mg feeding tube DAILY PRN 06/14/22 03/18/24 History Congestion ipratropium bromide 21 mcg (0.03 See Rx Instructions .Route 06/14/22 03/18/24 Rx %) nasal spray .COMPLEX #90 mL thiamine HCl (vitamin B1) 250 mg 250 mg PO DAILY 03/28/23 03/18/24 History tablet betaxolol 0.5 % eye drops 1 drp EACH EYE BID 11/07/23 03/18/24 History bisacodyl 10 mg rectal suppository 10 mg RECTAL DAILY PRN Constipation 11/07/23 03/18/24 History magnesium citrate (Citroma oral 300 ml feeding tube DAILY PRN 11/07/23 03/18/24 History solution) Constipation magnesium hydroxide 400 mg/5 mL 30 ml feeding tube DAILY PRN 11/07/23 03/18/24 History oral suspension (Milk of Magnesia) Constipation sodium phosphates 19 gram-7 118 ml RECTAL ONCE PRN Constipation 11/07/23 03/18/24 History gram/118 mL enema (Fleet Enema) docusate sodium 50 mg/5 mL oral 100 mg (10 mL) feeding tube Q12HR 11/14/23 03/18/24 Rx liquid #1,000 mL Saccharomyces boulardii 250 mg 250 mg feeding tube BID 03/18/24 03/18/24 History capsule acetaminophen 325 mg capsule 650 mg feeding tube Q4H PRN fever 03/18/24 03/18/24 History or pain amino acids-protein hydrolysate 15 See Rx Instructions feeding tube 03/18/24 03/18/24 History gram-100 kcal/30 mL oral liquid DAILY (Pro-Stat Sugar Free) atorvastatin 20 mg tablet 20 mg feeding tube QPM 03/18/24 03/18/24 History ceftriaxone 1 gram solution for 1 g IM Q24H pneumonitis 03/18/24 03/18/24 History injection cholecalciferol (vitamin D3) 1,250 50,000 unit feeding tube 2XW 03/18/24 03/18/24 History mcg (50,000 unit) tablet donepezil 5 mg tablet (Aricept) 5 mg feeding tube HS 03/18/24 03/18/24 History doxazosin 1 mg tablet 1 mg feeding tube QPM 03/18/24 03/18/24 History hydroxyzine pamoate 25 mg capsule 25 mg feeding tube Q12H 03/18/24 03/18/24 History ipratropium 0.5 mg-albuterol 3 mg 3 ml inhalation Q6H PRN shortness 03/18/24 03/18/24 History (2.5 mg base)/3 mL nebulization of breath or wheezing soln lidocaine (PF) 10 mg/mL (1 %) 3 ml IM HS give with Rocephin 03/18/24 03/18/24 History injection solution thiamine HCl (vitamin B1) 100 mg 150 mg feeding tube DAILY 03/18/24 03/18/24 History tablet Allergies Allergy/AdvReac Type Severity Reaction Status Date / Time No Known Allergies Allergy Unknown Verified 03/18/24 16:16 Vital Signs Vital Signs - 24 hr 03/21/24 14:00 03/21/24 15:48 03/21/24 15:48 Temperature 97.7 F Pulse Rate 95 89 Respiratory Rate 19 16 Blood Pressure 124/76 Pulse Oximetry 96 97 Oxygen Delivery Room Air Oxygen Flow Rate Fraction of Inspired Oxygen 21 03/21/24 15:56 03/21/24 16:00 03/21/24 19:39 Temperature Pulse Rate 95 87 83 Respiratory Rate 20 16 Blood Pressure Pulse Oximetry Oxygen Delivery Oxygen Flow Rate Fraction of Inspired Oxygen 03/21/24 19:41 03/21/24 19:44 03/21/24 20:00 Temperature Pulse Rate 87 93 Respiratory Rate 16 20 Blood Pressure Pulse Oximetry 93 98 Oxygen Delivery Nasal Cannula Nasal Cannula Oxygen Flow Rate 1 1 Fraction of Inspired Oxygen 03/21/24 20:00 03/21/24 21:17 03/21/24 23:39 Temperature 99.4 F Pulse Rate 87 93 82 Respiratory Rate 20 16 Blood Pressure 132/79 Pulse Oximetry 98 Oxygen Delivery Oxygen Flow Rate Fraction of Inspired Oxygen 03/21/24 23:46 03/22/24 00:03 03/22/24 04:00 Temperature Pulse Rate 80 77 68 Respiratory Rate 16 Blood Pressure Pulse Oximetry Oxygen Delivery Oxygen Flow Rate Fraction of Inspired Oxygen 03/22/24 04:15 03/22/24 04:20 03/22/24 06:00 Temperature 99.2 F Pulse Rate 75 81 79 Respiratory Rate 22 H 22 H 20 Blood Pressure 126/67 Pulse Oximetry 97 Oxygen Delivery Oxygen Flow Rate Fraction of Inspired Oxygen 03/22/24 07:53 03/22/24 07:53 03/22/24 08:00 Temperature Pulse Rate 65 66 Respiratory Rate 20 20 Blood Pressure Pulse Oximetry 96 Oxygen Delivery Nasal Cannula Oxygen Flow Rate 2 Fraction of Inspired Oxygen 03/22/24 08:55 03/22/24 11:06 03/22/24 11:06 Temperature Pulse Rate 76 Respiratory Rate 20 Blood Pressure Pulse Oximetry 93 Oxygen Delivery Room Air Room Air Oxygen Flow Rate Fraction of Inspired Oxygen 03/22/24 11:14 Temperature Pulse Rate 72 Respiratory Rate 20 Blood Pressure Pulse Oximetry Oxygen Delivery Oxygen Flow Rate Fraction of Inspired Oxygen Exam 2 Const: General: no acute distress Other: does not follow commands HENMT: Head: normal to inspection Eyes: General: appearance normal, both eyes and all related structures Neck: Neck: supple Resp: Effort & Inspection: normal respiratory effort Auscultation: rhonchi and no wheezes Cardio: Rate: regular rate GI: Inspection: normal to inspection GI Palp: Yes Soft to palpation and No Tenderness to palpation present (GI) Auscultation: normal bowel sounds O ther: peg in place Skin: General skin exam: normal color Neuro: Other: tracks with eyes, attempts to mouth words at times, does not follow any verbal commands. Extrem: General: normal to inspection Other: No edema Psych: Other: unable to assess Results Labs 03/22/24 05:06 03/22/24 05:07 Labs: Short CBC 03/22/24 Range/Units 05:06 WBC 5.9 (4.5-10.0) K/mm3 Hgb 9.4 L (14.0-18.0) g/dL Hct 29.5 L (42.0-52.0) % Plt Count 146 L (150-375) k/mm3 BMP 03/22/24 05:07 Sodium 142 Potassium 3.6 Chloride 116 H Carbon Dioxide 25 BUN 21 H Creatinine 0.80 Glucose 116 H Calcium 8.4 Liver Function 03/22/24 Range/Units 05:07 Total Bilirubin 0.5 (0.2-1.3) mg/dL AST 73 H (17-59) U/L ALT 147 H (6-50) U/L Alkaline Phosphatase 228 H (38-126) U/L Albumin 2.3 L (3.5-5.1) g/dL
[2024-03-22 16:58] LABS: Glucose Point of Care 143 mg/dl (65-105)
[2024-03-22] MEDS: IPRATROPIUM NASAL SPRAY 0.03% 15 ML BOTTLE 2 SPRAY NASAL (17:28)
[2024-03-22] MEDS: DOXAZOSIN MESYLATE 1 MG TABLET FEED TUBE (17:28)
[2024-03-22] MEDS: ATORVASTATIN 20 MG TABLET FEED TUBE (17:28)
[2024-03-22] MEDS: DONEPEZIL HCL 5 MG TABLET PO (20:13)
[2024-03-23] VITALS (21 sets, daily range): BP systolic 126–133; BP diastolic 72–79; PULSE 78–88; RESP 18–26; TEMP 37.1–39.1; O2SAT 90–96
[2024-03-23 00:33] LABS: Glucose Point of Care 112 mg/dl (65-105)
[2024-03-23] MEDS: IPRATROPIUM 0.5 MG/ALBUTEROL SULFATE 2.5 MG AMPUL.NEB 3 ML INHALATION ×5 (00:48→20:02)
[2024-03-23] MEDS: AMPICILLIN SULB 3 GM/NS 100 ML 3 GM/100 ML VIAL IVPB ×2 (05:04→12:25)
[2024-03-23 06:08] LABS: Glucose Point of Care 130 mg/dl (65-105)
[2024-03-23 06:08] LABS: Basophils Percent Auto 0.3 % (0.2-1.2); Eosinophils Absolute Auto 0.2 K/mm3 (0-0.3); Eosinophils Percent Auto 2.5 % (0-4.4); Hematocrit 30.1 % (42.0-52.0); Hemoglobin 9.8 g/dL (14.0-18.0); Immature Granulocyte Absolute 0.06 K/mm3 (0.00-0.031); Immature Reticulocyte Fraction 26.4 % (3.0-15.9); Lymphocytes Absolute Auto 0.78 K/mm3 (0.9-3.2); Lymphocytes Percent Auto 13.1 % (18.3-44.2); Mean Corpuscular HGB Conc 32.6 g/dl (32-36); Mean Corpuscular Hemoglobin 30.3 pg (26-34); Mean Corpuscular Volume 93.2 fl (80-100); Mean Platelet Volume 11.9 fl (7.4-10.4); Monocytes Absolute Auto 0.4 K/mm3 (0.1-0.6); Monocytes Percent Auto 6.5 % (2.6-8.5); Neutrophils Absolute Auto 4.6 K/mm3 (1.3-6.7); Neutrophils Percent Auto 76.6 % (45.5-73.1); Platelet Count Result 148 k/mm3 (150-375); Red Blood Count 3.23 M/mm3 (4.6-6.20); Red Cell Distribution Width 13.5 % (11.5-14.5); Reticulocyte Hemoglobin Conten 28.1 pg (28.2-36.6); Reticulocyte Percent 1.27 % (0.7-4.3); Reticulocytes Absolute 0.04 10^6/uL (0.02-0.10)
[2024-03-23 06:32] LABS: Anion Gap 1 mmol/L (4-12); Blood Urea Nitrogen 18 mg/dL (9-20); Calcium 8.4 mg/dL (8.4-10.2); Carbon Dioxide 26 mmol/L (22-30); Chloride 114 mmol/L (98-107); Estimated CRCL calculation 59 ml/min; Estimated Glomerular Filt Rate > 60; Glucose 121 mg/dL (65-110); Potassium 3.2 mmol/L (3.4-5.0); Sodium 141 mmol/L (137-145)
[2024-03-23 06:48] LABS: Lactate Dehydrogenase 181 U/L (120-246)
[2024-03-23 06:59] LABS: Iron < 10 ug/dL (49-181)
[2024-03-23 07:09] LABS: Percent Iron Saturation 5 % (20-50); TOTAL IRON BINDING CAPACITY 204 ug/dL (265-497)
[2024-03-23] MEDS: CYANOCOBALAMIN 1,000 MCG TABLET 1000 MCG FEED TUBE (09:12)
[2024-03-23] MEDS: SACCHAROMYCES BOULARDII 250 MG CAPSULE FEED TUBE ×2 (09:12→16:05)
[2024-03-23] MEDS: hydrOXYzine pamoate 25 MG CAPSULE FEED TUBE ×2 (09:12→21:54)
[2024-03-23] MEDS: ASPIRIN 81 MG CHEWABLE TABLET FEED TUBE (09:12)
[2024-03-23] MEDS: DOCUSATE SODIUM LIQ 100 MG/10 ML UDC FEED TUBE ×2 (09:12→21:54)
[2024-03-23] MEDS: FLUTICASONE PROPIONATE 0.05% NA SPR 16 GM BTL (*BKC) 2 SPRAY NASAL (09:13)
[2024-03-23] MEDS: TIMOLOL MALEATE 0.5% OP SOLN 5 ML BOTTLE 1 DROP EACH EYE ×2 (09:14→21:55)
[2024-03-23] MEDS: IPRATROPIUM NASAL SPRAY 0.03% 15 ML BOTTLE 2 SPRAY NASAL ×3 (09:14→16:06)
[2024-03-23] MEDS: HEPARIN SODIUM 5,000 UNITS/ML VIAL 5000 UNITS SUB-Q ×2 (09:16→21:54)
[2024-03-23] MEDS: PANTOPRAZOLE SODIUM IV 40 MG VIAL IV PUSH ×2 (09:16→21:54)
[2024-03-23] MEDS: SODIUM CHLORIDE 0.9% IV 1,000 ML 100 ML IV CONT ×2 (09:17→21:00)
[2024-03-23] MEDS: BISACODYL 10 MG SUPPOSITORY RECTAL (09:17)
[2024-03-23] MEDS: SALIVA SUBSTITUTE RINSE 473 ML BOTTLE 10 ML PO ×4 (09:28→21:55)
[2024-03-23] MEDS: CHLORHEXIDINE GLUCONATE 0.12% ORAL RINSE 473 ML BTL (*BKC) 15 ML SWISH/SPIT ×2 (09:29→16:07)
--- NOTE | 2024-03-23 10:25 | P.PNIM_ITS ---
Progress Note: A&P Assessment and Plan (1) Sepsis: Qualifiers: Acute respiratory failure type: with hypoxia Sepsis acute organ dysfunction status: with acute organ dysfunction Sepsis type: sepsis due to unspecified organism Severe sepsis acute organ dysfunction type: acute respiratory failure Severe sepsis shock status: without septic shock Qualified Code(s): A41.9 - Sepsis, unspecified organism; R65.20 - Severe sepsis without septic shock; J96.01 - Acute respiratory failure with hypoxia Code(s): A41.9 - Sepsis, unspecified organism Status: Resolved Assessment and Plan: Sepsis Low grade temp Patient meets sepsis criteria with tachycardia, tachypnea and leukocytosis in the setting of acute aspiration with aspiration pneumonia and multiple lobes a right lung with associated hypoxic respiratory failure. BP's soft, 95/50 on admission, normalized with fluids --Blood cultures negative x2- No growth. --Temp 99.2 yesterday, 99.6 this AM. Spiked temp of 102.3. BCX2, Urine culture, stop Unasyn,and start Meropenem 1 gm IVPB q 8. --follow CBC (2) Aspiration pneumonia: Qualifiers: Aspiration pneumonia type: unspecified Laterality: right Lung location: unspecified part of lung Qualified Code(s): J69.0 - Pneumonitis due to inhalation of food and vomit Code(s): J69.0 - Pneumonitis due to inhalation of food and vomit Status: Acute Assessment and Plan: Treating aspiration pneumonia. Had an episode of emesis 03/22 Chest x-ray Airspace opacities in right mid and lower lung zones and left lower lung zone with mild worsening on the left, consistent with pneumonia --Stop Unasyn, Start Meropenem 1 gm IVPB q 8. --Frequent suctioning --Discuss with facility if able to schedule suctioning --Oral q shift and as needed. (3) COPD (chronic obstructive pulmonary disease): Qualifiers: COPD type: COPD with acute lower respiratory infection Qualified Code(s): J44.0 - Chronic obstructive pulmonary disease with (acute) lower respiratory infection Code(s): J44.9 - Chronic obstructive pulmonary disease, unspecified Status: Acute Assessment and Plan: * COPD * Pulmononary following, appreciate recommendations * Continuing Duonebs q4 (4) AMS (altered mental status): Qualifiers: Altered mental status type: unspecified Qualified Code(s): R41.82 - Altered mental status, unspecified Code(s): R41.82 - Altered mental status, unspecified Status: Chronic Assessment and Plan: Seems at baseline. Hx dementia (5) Transaminitis: Code(s): R74.01 - Elevation of levels of liver transaminase levels Status: Chronic Assessment and Plan: Transaminitis * Alk phos 260>166<235>228 * ALT 399>181<208>147 * AST 136> 111<134>73 * TBili 0.9<0.8>0.5 03/21 abdomen no gallstones or gallbladder wall thickening --Follow LFT's if new symptoms (6) Dementia: Qualifiers: Dementia behavioral or psychological symptom: unspecified whether behavioral, psychotic, or mood disturbance or anxiety Dementia severity: severe Dementia type: unspecified type Qualified Code(s): F03.C0 - Unspecified dementia, severe, without behavioral disturbance, psychotic disturbance, mood disturbance, and anxiety Code(s): F03.90 - Unspecified dementia, unspecified severity, without behavioral disturbance, psychotic disturbance, mood disturbance, and anxiety Status: Chronic Assessment and Plan: Dementia Hx G-tube, malnutrition Supportive care Turn q2 Respiratory failure likely related to dementia and inability to clear secretions due to mental status (7) Acute hypoxemic respiratory failure: Code(s): J96.01 - Acute respiratory failure with hypoxia Status: Acute Assessment and Plan: Acute hypoxic respiratory failure Aspiration pneumonia Started empiric rocephin IM outpatient, azithromycin, Vancomycin, changed to Unasyn. Weaned off oxygen. MRSA PCR was negative. Still has a coarse upper airway, worsening infiltrates on chest x-ray. Pulmonary following, appreciate recommendations --Stop Unasyn and start Meropenem 1 gm IVPB q 8. --Aspiration precautions, elevate HOB --NPO. Dry mouth, add artificial saliva, frequent oral care. Add peridex --Suctioning prn --Trial of flonase and ipatropium nasal spray (8) Anemia: Code(s): D64.9 - Anemia, unspecified Status: Acute Assessment and Plan: Blood count trending down during admission. 15.2/46.1> 9.8/30.1 --Started a PPI IV BID --GI consult (9) Hypokalemia: Code(s): E87.6 - Hypokalemia Status: Acute Assessment and Plan: * Potassium 3.2 * Potassium Chloride 40 meq per feeding tube x 1 * Monitor labs. Plan Subjective Date/time seen: 03/23/24 10:25 Interval history: Patient is nonverbal. Patient with alot of upper airway secretions, unable to clear them on own. Pulmonary following. Review of Systems Review of Systems: All systems reviewed & are unremarkable except as noted in HPI and below Exam Const: General: no acute distress Other: Nonverbal. HENMT: Other: head is atraumatic and normocephalic. Poor oral hygiene present. Dry MM. Coarse upper airway Resp: Other: Coarse upper airway, crackles in the bases. Poor effort for inspiration and does not follow commands. Cardio: Rate: regular rate Rhythm: regular rhythm GI: GI Palp: Yes Soft to palpation Auscultation: normal bowel sounds : Other: Incontinent. Skin: Other: Peg tube with scab around site. Stage 1 wound x2 to the right hip. Dressing in place. Small skin tear also to right upper thigh posteriorly. Neuro: Other: At baseline, moves all extremities, nonverbal Extrem: General: no pedal edema Objective Data Vital Signs Vital Signs: Vital Signs - 24 hr 03/22/24 11:06 03/22/24 11:06 03/22/24 11:14 Temperature Pulse Rate 76 72 Respiratory Rate 20 20 Blood Pressure Pulse Oximetry 93 Oxygen Delivery Room Air Fraction of Inspired Oxygen 03/22/24 12:00 03/22/24 14:00 03/22/24 15:37 Temperature 98.8 F Pulse Rate 84 82 Respiratory Rate 20 Blood Pressure 122/72 Pulse Oximetry 97 93 Oxygen Delivery Room Air Fraction of Inspired Oxygen 03/22/24 15:37 03/22/24 15:44 03/22/24 16:00 Temperature Pulse Rate 80 80 89 Respiratory Rate 20 20 Blood Pressure Pulse Oximetry Oxygen Delivery Fraction of Inspired Oxygen 03/22/24 20:00 03/22/24 20:00 03/22/24 20:55 Temperature 99.9 F H Pulse Rate 88 89 88 Respiratory Rate 18 18 Blood Pressure 128/63 Pulse Oximetry 98 98 Oxygen Delivery Room Air Fraction of Inspired Oxygen 03/22/24 22:19 03/23/24 00:04 03/23/24 00:49 Temperature Pulse Rate 77 87 80 Respiratory Rate 20 22 H Blood Pressure Pulse Oximetry Oxygen Delivery Fraction of Inspired Oxygen 03/23/24 00:59 03/23/24 04:00 03/23/24 04:11 Temperature Pulse Rate 78 82 85 Respiratory Rate 22 H 22 H Blood Pressure Pulse Oximetry Oxygen Delivery Fraction of Inspired Oxygen 03/23/24 04:19 03/23/24 06:00 Temperature 99.6 F Pulse Rate 82 87 Respiratory Rate 22 H 18 Blood Pressure 133/72 Pulse Oximetry 96 Oxygen Delivery Fraction of Inspired Oxygen Intake/Output Intake/Output: Intake & Output 03/20/24 03/21/24 03/22/24 03/23/24 23:59 23:59 23:59 23:59 Intake Total 2400 2400 3400 1200 Balance 2400 2400 3400 1200 Meds/Results Medications: Active Medications Generic Name Dose Route Start Last Admin Trade Name Freq PRN Reason Stop Dose Admin Acetaminophen 650 mg 03/18/24 22:33 Acetaminophen 325 Mg Tablet FEED TUBE Q4H PRN fever or pain 1-3 Albuterol/Ipratropium 3 ml 03/19/24 16:00 03/23/24 09:17 Ipratropium 0.5 Mg/Albuterol Sulfate 2.5 Mg Ampul.Neb 3 Ml INHALATION 3 ml Q4HRT MIRNA Administration Aspirin 81 mg 03/20/24 09:00 03/23/24 09:12 Aspirin 81 Mg Chewable Tablet FEED TUBE 81 mg DAILY MIRNA Administration Atorvastatin Calcium 20 mg 03/19/24 18:00 03/22/24 17:28 Atorvastatin 20 Mg Tablet FEED TUBE 20 mg QPM MIRNA Administration Bisacodyl 10 mg 03/18/24 22:33 Bisacodyl 10 Mg Suppository RECTAL DAILY PRN Constipation Bisacodyl 10 mg 03/21/24 09:00 03/23/24 09:17 Bisacodyl 10 Mg Suppository RECTAL 10 mg QAM MIRNA Administration Chlorhexidine Gluconate 15 ml 03/21/24 09:00 03/23/24 09:29 Chlorhexidine Gluconate 0.12% Oral Rinse 473 Ml Btl (*Bkc) SWISH/SPIT 15 ml BID MIRNA Administration Cyanocobalamin 1,000 mcg 03/19/24 09:00 03/23/24 09:12 Cyanocobalamin 1,000 Mcg Tablet FEED TUBE 1,000 mcg DAILY MIRNA Administration Docusate Sodium 100 mg 03/19/24 09:00 03/23/24 09:12 Docusate Sodium Liq 100 Mg/10 Ml Udc FEED TUBE 100 mg Q12HR MIRNA Administration Donepezil HCl 5 mg 03/19/24 21:00 03/22/24 20:13 Donepezil Hcl 5 Mg Tablet PO 5 mg HS MIRNA Administration Doxazosin Mesylate 1 mg 03/19/24 18:00 03/22/24 17:28 Doxazosin Mesylate 1 Mg Tablet FEED TUBE 1 mg QPM MIRNA Administration Fluticasone Propionate 2 spray 03/22/24 11:45 03/23/24 09:13 Fluticasone Propionate 0.05% Na Spr 16 Gm Btl (*Bkc) NASAL 2 spray QAM MIRNA Administration Heparin Sodium (Porcine) 5,000 units 03/19/24 09:00 03/23/24 09:16 Heparin Sodium 5,000 Units/Ml Vial SUB-Q 5,000 units Q12HR MIRNA Administration Hydroxyzine Pamoate 25 mg 03/18/24 22:45 03/23/24 09:12 Hydroxyzine Pamoate 25 Mg Capsule FEED TUBE 25 mg Q12HR MIRNA Administration Sodium Chloride 1,000 mls @ 100 mls/hr 03/18/24 20:10 03/23/24 09:17 Normal Saline Iv IV CONT 100 mls/hr .Q10H MIRNA Administration Ampicillin Sodium/Sulbactam Sodium 3 gm in 100 mls @ 200 mls/hr 03/19/24 11:00 03/23/24 05:34 Unasyn 3 Gm/Ns 100 Ml IVPB Infused Q6HR MIRNA Infusion Ipratropium [place] 2 spray 03/22/24 13:00 03/23/24 09:14 Ipratropium Nasal [place] 0.03% 15 Ml Bottle NASAL 2 spray TID MIRNA Administration Loratadine 10 mg 03/18/24 22:40 Loratadine 10 Mg Tablet FEED TUBE DAILY PRN Congestion Magnesium Hydroxide 30 ml 03/18/24 22:33 Magnesium Hydroxide Susp 30 Ml Udc FEED TUBE DAILY PRN Constipation Pantoprazole Sodium 40 mg 03/22/24 09:00 03/23/24 09:16 Pantoprazole Sodium Iv 40 Mg Vial IV PUSH 40 mg Q12HR MIRNA Administration Saccharomyces Boulardii 250 mg 03/19/24 09:00 03/23/24 09:12 Saccharomyces Boulardii 250 Mg Capsule FEED TUBE 250 mg BID MIRNA Administration Saliva Substitute 10 ml 03/20/24 13:00 03/23/24 09:28 Saliva Substitute Rinse 473 Ml Bottle PO 10 ml QID MIRNA Administration Timolol Maleate 1 drop 03/20/24 09:50 03/23/24 09:14 Timolol Maleate 0.5% Op Soln 5 Ml Bottle EACH EYE 1 drop Q12HR MIRNA Administration Radiology Results: ITS Impressions Chest CT 03/18/24 17:48 IMPRESSION: 1. Right-sided pneumonia with a posterior and lower lung predominance. 2. Material in the right middle lobe and right lower lobe bronchi, which may be mucous plugging or aspirated material. 3. Moderate emphysema. 4. Mild mediastinal lymphadenopathy, likely reactive. Abdomen Ultrasound 03/21/24 16:41 IMPRESSION: No significant abnormality Chest X-Ray 03/22/24 08:01 IMPRESSION: 1. Airspace opacities in right mid and lower lung zones and left lower lung zone with mild worsening on the left, consistent with pneumonia. Labs Labs: Laboratory Results - last 24 hr 03/22/24 03/22/24 03/23/24 12:31 16:50 00:28 WBC RBC Hgb Hct MCV MCH MCHC RDW Plt Count MPV Immature Gran % (Auto) Neut % (Auto) Lymph % (Auto) [place] % (Auto) Eos % (Auto) Baso % (Auto) Lymph # (Auto) [place] # (Auto) Eos # (Auto) Baso # (Auto) Abs Immat Gran (auto) Absolute Neuts (auto) Absolute Nucleated RBC Nucleated RBC % Absolute Retic Percent Retic Immature Retic Fraction Retic Hgb Content Sodium Potassium Chloride Carbon Dioxide Anion Gap BUN Creatinine Estim Creat Clear Calc Estimated GFR Glucose POC Capillary Glucose 118 H 143 H 112 H Calcium Iron TIBC % Saturation Ferritin Lactate Dehydrogenase 03/23/24 03/23/24 05:13 06:02 WBC 6.0 RBC 3.23 L Hgb 9.8 L Hct 30.1 L MCV 93.2 MCH 30.3 MCHC 32.6 RDW 13.5 Plt Count 148 L MPV 11.9 H Immature Gran % (Auto) 1.0 H Neut % (Auto) 76.6 H Lymph % (Auto) 13.1 L [place] % (Auto) 6.5 Eos % (Auto) 2.5 Baso % (Auto) 0.3 Lymph # (Auto) 0.78 L [place] # (Auto) 0.4 Eos # (Auto) 0.2 Baso # (Auto) 0.0 Abs Immat Gran (auto) 0.06 H Absolute Neuts (auto) 4.6 Absolute Nucleated RBC 0.000 Nucleated RBC % 0.0 Absolute Retic 0.04 Percent Retic 1.27 Immature Retic Fraction 26.4 H Retic Hgb Content 28.1 L Sodium 141 Potassium 3.2 L Chloride 114 H Carbon Dioxide 26 Anion Gap 1 L BUN 18 Creatinine 0.90 Estim Creat Clear Calc 59 Estimated GFR > 60 Glucose 121 H POC Capillary Glucose 130 H Calcium 8.4 Iron < 10 L TIBC 204 L % Saturation 5 L Ferritin 153.00 Lactate Dehydrogenase 181 Quality VTE Prophylaxis VTE prophylaxis: pharmacologic ordered
[2024-03-23] MEDS: POTASSIUM CHLORIDE 20 MEQ PACKET (FOR LIQUID) 40 MEQ FEED TUBE (10:28)
[2024-03-23 12:18] LABS: Glucose Point of Care 135 mg/dl (65-105)
[2024-03-23] MEDS: ACETAMINOPHEN 325 MG TABLET 650 MG FEED TUBE (16:04)
[2024-03-23] MEDS: MEROPENEM 1 GM/NS 100 ML BAG IVPB (17:05)
[2024-03-23] MEDS: ATORVASTATIN 20 MG TABLET FEED TUBE (17:05)
[2024-03-23] MEDS: DOXAZOSIN MESYLATE 1 MG TABLET FEED TUBE (17:06)
--- NOTE | 2024-03-23 18:02 | PCRCNOTE ---
Window of time for administration has passed. See next scheduled administration.
[2024-03-23 18:25] LABS: Glucose Point of Care 123 mg/dl (65-105)
[2024-03-23] MEDS: DONEPEZIL HCL 5 MG TABLET PO (21:54)
[2024-03-24] VITALS (21 sets, daily range): BP systolic 139–143; BP diastolic 73–88; PULSE 62–93; RESP 16–24; TEMP 36.9–38.9; O2SAT 91–95
[2024-03-24] MEDS: IPRATROPIUM 0.5 MG/ALBUTEROL SULFATE 2.5 MG AMPUL.NEB 3 ML INHALATION ×4 (00:40→11:17)
[2024-03-24] MEDS: MEROPENEM 1 GM/NS 100 ML BAG IVPB ×3 (01:34→17:27)
[2024-03-24 02:54] LABS: Glucose Point of Care 118 mg/dl (65-105)
[2024-03-24 05:26] LABS: Glucose Point of Care 122 mg/dl (65-105)
[2024-03-24 05:33] LABS: Basophils Percent Auto 0.1 % (0.2-1.2); Eosinophils Absolute Auto 0.3 K/mm3 (0-0.3); Eosinophils Percent Auto 3.6 % (0-4.4); Hematocrit 31.8 % (42.0-52.0); Hemoglobin 10.4 g/dL (14.0-18.0); Immature Granulocyte Absolute 0.07 K/mm3 (0.00-0.031); Lymphocytes Absolute Auto 0.71 K/mm3 (0.9-3.2); Lymphocytes Percent Auto 9.9 % (18.3-44.2); Mean Corpuscular HGB Conc 32.7 g/dl (32-36); Mean Corpuscular Hemoglobin 30.5 pg (26-34); Mean Corpuscular Volume 93.3 fl (80-100); Mean Platelet Volume 11.1 fl (7.4-10.4); Monocytes Absolute Auto 0.5 K/mm3 (0.1-0.6); Monocytes Percent Auto 6.6 % (2.6-8.5); Neutrophils Absolute Auto 5.6 K/mm3 (1.3-6.7); Neutrophils Percent Auto 78.8 % (45.5-73.1); Platelet Count Result 169 k/mm3 (150-375); Red Blood Count 3.41 M/mm3 (4.6-6.20); Red Cell Distribution Width 13.5 % (11.5-14.5); White Blood Count 7.2 K/mm3 (4.5-10.0)
[2024-03-24] MEDS: SODIUM CHLORIDE 0.9% IV 1,000 ML 100 ML IV CONT (07:23)
[2024-03-24 07:51] LABS: Alanine Aminotransferase 107 U/L (6-50); Albumin Level 2.5 g/dL (3.5-5.1); Alkaline Phosphatase 293 U/L (38-126); Anion Gap -1 mmol/L (4-12); Aspartate Amino Transferase 52 U/L (17-59); Bilirubin,Total 0.5 mg/dL (0.2-1.3); Blood Urea Nitrogen 18 mg/dL (9-20); Calcium 8.5 mg/dL (8.4-10.2); Carbon Dioxide 28 mmol/L (22-30); Chloride 112 mmol/L (98-107); Estimated CRCL calculation 73 ml/min; Estimated Glomerular Filt Rate > 60; Glucose 110 mg/dL (65-110); Potassium 3.6 mmol/L (3.4-5.0); Sodium 139 mmol/L (137-145)
[2024-03-24] MEDS: hydrOXYzine pamoate 25 MG CAPSULE FEED TUBE ×2 (09:03→21:57)
[2024-03-24] MEDS: ASPIRIN 81 MG CHEWABLE TABLET FEED TUBE (09:03)
[2024-03-24] MEDS: CYANOCOBALAMIN 1,000 MCG TABLET 1000 MCG FEED TUBE (09:03)
[2024-03-24] MEDS: DOCUSATE SODIUM LIQ 100 MG/10 ML UDC FEED TUBE ×2 (09:04→21:57)
[2024-03-24] MEDS: LORATADINE 10 MG TABLET FEED TUBE (09:04)
[2024-03-24] MEDS: SACCHAROMYCES BOULARDII 250 MG CAPSULE FEED TUBE ×2 (09:04→17:27)
[2024-03-24] MEDS: TIMOLOL MALEATE 0.5% OP SOLN 5 ML BOTTLE 1 DROP EACH EYE ×2 (09:06→21:57)
[2024-03-24] MEDS: FLUTICASONE PROPIONATE 0.05% NA SPR 16 GM BTL (*BKC) 2 SPRAY NASAL (09:06)
[2024-03-24] MEDS: SALIVA SUBSTITUTE RINSE 473 ML BOTTLE 10 ML PO ×4 (09:06→21:57)
[2024-03-24] MEDS: IPRATROPIUM NASAL SPRAY 0.03% 15 ML BOTTLE 2 SPRAY NASAL ×3 (09:08→17:28)
[2024-03-24] MEDS: CHLORHEXIDINE GLUCONATE 0.12% ORAL RINSE 473 ML BTL (*BKC) 15 ML SWISH/SPIT ×2 (09:08→17:28)
[2024-03-24] MEDS: PANTOPRAZOLE SODIUM IV 40 MG VIAL IV PUSH ×2 (09:17→21:57)
[2024-03-24] MEDS: HEPARIN SODIUM 5,000 UNITS/ML VIAL 5000 UNITS SUB-Q ×2 (09:17→21:57)
--- NOTE | 2024-03-24 11:35 | P.PNIM_ITS ---
Progress Note: A&P Assessment and Plan (1) Sepsis: Qualifiers: Sepsis type: sepsis due to unspecified organism Sepsis acute organ dysfunction status: with acute organ dysfunction Severe sepsis acute organ dysfunction type: acute respiratory failure Acute respiratory failure type: with hypoxia Severe sepsis shock status: without septic shock Qualified Code(s): A41.9 - Sepsis, unspecified organism; R65.20 - Severe sepsis without septic shock; J96.01 - Acute respiratory failure with hypoxia Code(s): A41.9 - Sepsis, unspecified organism Status: Resolved Assessment and Plan: Sepsis Low grade temp Patient meets sepsis criteria with tachycardia, tachypnea and leukocytosis in the setting of acute aspiration with aspiration pneumonia and multiple lobes a right lung with associated hypoxic respiratory failure. BP's soft, 95/50 on admission, normalized with fluids --Blood cultures negative x2- No growth. --Spiked temp of 102.3 on 03/23/24. BCX2- NGTD, Urine culture pending, stop Unasyn,and start Meropenem 1 gm IVPB q 8. WBC 7.2. --follow CBC (2) Aspiration pneumonia: Qualifiers: Aspiration pneumonia type: unspecified Laterality: right Lung location: unspecified part of lung Qualified Code(s): J69.0 - Pneumonitis due to inhalation of food and vomit Code(s): J69.0 - Pneumonitis due to inhalation of food and vomit Status: Acute Assessment and Plan: Treating aspiration pneumonia. Had an episode of emesis 03/22 Chest x-ray Airspace opacities in right mid and lower lung zones and left lower lung zone with mild worsening on the left, consistent with pneumonia --Stop Unasyn, Start Meropenem 1 gm IVPB q 8. --Frequent suctioning --Discuss with facility if able to schedule suctioning --Oral q shift and as needed. (3) COPD (chronic obstructive pulmonary disease): Qualifiers: COPD type: COPD with acute lower respiratory infection Qualified Code(s): J44.0 - Chronic obstructive pulmonary disease with (acute) lower respiratory infection Code(s): J44.9 - Chronic obstructive pulmonary disease, unspecified Status: Acute Assessment and Plan: * COPD * Pulmononary following, appreciate recommendations * Continuing Duonebs q4 (4) AMS (altered mental status): Qualifiers: Altered mental status type: unspecified Qualified Code(s): R41.82 - Altered mental status, unspecified Code(s): R41.82 - Altered mental status, unspecified Status: Chronic Assessment and Plan: Seems at baseline. Hx dementia (5) Transaminitis: Code(s): R74.01 - Elevation of levels of liver transaminase levels Status: Chronic Assessment and Plan: Transaminitis * Alk phos 260>166<235>228>293 * ALT 399>181<208>147>107 * AST 136> 111<134>73>52 * TBili 0.9<0.8>0.5 03/21 abdomen no gallstones or gallbladder wall thickening --Follow LFT's if new symptoms (6) Dementia: Qualifiers: Dementia type: unspecified type Dementia severity: severe Dementia behavioral or psychological symptom: unspecified whether behavioral, psychotic, or mood disturbance or anxiety Qualified Code(s): F03.C0 - Unspecified dementia, severe, without behavioral disturbance, psychotic disturbance, mood disturbance, and anxiety Code(s): F03.90 - Unspecified dementia, unspecified severity, without behavioral disturbance, psychotic disturbance, mood disturbance, and anxiety Status: Chronic Assessment and Plan: Dementia Hx G-tube, malnutrition. Receiving tube feeds and tolerating well. Supportive care Turn q2 Respiratory failure likely related to dementia and inability to clear secretions due to mental status (7) Acute hypoxemic respiratory failure: Code(s): J96.01 - Acute respiratory failure with hypoxia Status: Acute Assessment and Plan: Acute hypoxic respiratory failure Aspiration pneumonia Started empiric rocephin IM outpatient, azithromycin, Vancomycin, changed to Unasyn. Weaned off oxygen. MRSA PCR was negative. Still has a coarse upper airway, worsening infiltrates on chest x-ray. Pulmonary following, appreciate recommendations --Stop Unasyn and start Meropenem 1 gm IVPB q 8. --Aspiration precautions, elevate HOB --NPO. Dry mouth, add artificial saliva, frequent oral care. Add peridex --Suctioning prn --Trial of flonase and ipatropium nasal spray (8) Anemia: Code(s): D64.9 - Anemia, unspecified Status: Acute Assessment and Plan: Blood count trending down during admission. 15.2/46.1> 9.8/30.1 --Started a PPI IV BID --GI consult (9) Hypokalemia: Code(s): E87.6 - Hypokalemia Status: Acute Assessment and Plan: * Potassium 3.6, improved. * Monitor labs. Plan Subjective Date/time seen: 03/24/24 11:35 Interval history: Patient is nonverbal. Upper airway secretions decreasing. Pulmonary following. Review of Systems Review of Systems: All systems reviewed & are unremarkable except as noted in HPI and below Exam Const: General: comfortable and no acute distress HENMT: Other: head is atraumatic and normocephalic. Oral hygiene improving. slightly coarse upper airway Resp: Auscultation: diminished lung sounds Cardio: Rate: regular rate Rhythm: regular rhythm Other: Telemetry -SR 79 GI: GI Palp: Yes Soft to palpation Auscultation: normal bowel sounds : Other: Incontinent Skin: Other: Stage 1 wound x2 to the right hip. Dressing in place. Small skin tear also to right upper thigh posteriorly. Neuro: Other: At baseline, moves all extremities, nonverbal Extrem: General: no pedal edema Objective Data Vital Signs Vital Signs: Vital Signs - 24 hr 03/23/24 12:00 03/23/24 12:36 03/23/24 14:00 Temperature 102.3 F H Pulse Rate 86 81 86 Respiratory Rate 20 26 H Blood Pressure 133/79 Pulse Oximetry 90 Oxygen Delivery Oxygen Flow Rate 03/23/24 16:00 03/23/24 16:04 03/23/24 17:03 Temperature 102.3 F H 98.7 F Pulse Rate 86 Respiratory Rate Blood Pressure Pulse Oximetry Oxygen Delivery Oxygen Flow Rate 03/23/24 17:04 03/23/24 19:27 03/23/24 20:00 Temperature 98.7 F 100.0 F H Pulse Rate 88 Respiratory Rate 18 Blood Pressure 126/76 Pulse Oximetry 91 92 Oxygen Delivery Nasal Cannula Oxygen Flow Rate 1 03/23/24 20:00 03/23/24 20:02 03/23/24 20:02 Temperature Pulse Rate 86 86 86 Respiratory Rate 24 H Blood Pressure Pulse Oximetry 92 Oxygen Delivery Nasal Cannula Oxygen Flow Rate 1 03/23/24 20:09 03/23/24 22:15 03/24/24 00:00 Temperature 100.2 F H Pulse Rate 87 77 Respiratory Rate 24 H Blood Pressure Pulse Oximetry Oxygen Delivery Oxygen Flow Rate 03/24/24 00:41 03/24/24 00:47 03/24/24 04:00 Temperature Pulse Rate 81 88 80 Respiratory Rate 20 20 Blood Pressure Pulse Oximetry Oxygen Delivery Oxygen Flow Rate 03/24/24 04:08 03/24/24 04:19 03/24/24 05:19 Temperature 98.5 F Pulse Rate 69 80 62 Respiratory Rate 20 20 18 Blood Pressure 139/86 Pulse Oximetry 95 Oxygen Delivery Oxygen Flow Rate 03/24/24 07:24 03/24/24 07:24 03/24/24 07:37 Temperature Pulse Rate 78 78 80 Respiratory Rate 20 20 20 Blood Pressure Pulse Oximetry 92 Oxygen Delivery Nasal Cannula Oxygen Flow Rate 2 03/24/24 11:22 03/24/24 11:28 Temperature Pulse Rate 77 78 Respiratory Rate 24 H 20 Blood Pressure Pulse Oximetry Oxygen Delivery Oxygen Flow Rate Intake/Output Intake/Output: Intake & Output 03/21/24 03/22/24 03/23/24 03/24/24 23:59 23:59 23:59 23:59 Intake Total 2400 3400 2400 2100 Output Total 1000 Balance 2400 3400 2400 1100 Meds/Results Medications: Active Medications Generic Name Dose Route Start Last Admin Trade Name Freq PRN Reason Stop Dose Admin Acetaminophen 650 mg 03/18/24 22:33 03/23/24 16:04 Acetaminophen 325 Mg Tablet FEED TUBE 650 mg Q4H PRN Administration fever or pain 1-3 Albuterol/Ipratropium 3 ml 03/19/24 16:00 03/24/24 11:17 Ipratropium 0.5 Mg/Albuterol Sulfate 2.5 Mg Ampul.Neb 3 Ml INHALATION 3 ml Q4HRT MIRNA Administration Aspirin 81 mg 03/20/24 09:00 03/24/24 09:03 Aspirin 81 Mg Chewable Tablet FEED TUBE 81 mg DAILY MIRNA Administration Atorvastatin Calcium 20 mg 03/19/24 18:00 03/23/24 17:05 Atorvastatin 20 Mg Tablet FEED TUBE 20 mg QPM MIRNA Administration Bisacodyl 10 mg 03/18/24 22:33 Bisacodyl 10 Mg Suppository RECTAL DAILY PRN Constipation Bisacodyl 10 mg 03/21/24 09:00 03/23/24 09:17 Bisacodyl 10 Mg Suppository RECTAL 10 mg QAM MIRNA Administration Chlorhexidine Gluconate 15 ml 03/21/24 09:00 12/24/24 09:08 Chlorhexidine Gluconate 0.12% Oral Rinse 473 Ml Btl (*Bkc) SWISH/SPIT 15 ml BID MIRNA Administration Cyanocobalamin 1,000 mcg 03/19/24 09:00 03/24/24 09:03 Cyanocobalamin 1,000 Mcg Tablet FEED TUBE 1,000 mcg DAILY MIRNA Administration Docusate Sodium 100 mg 03/19/24 09:00 03/24/24 09:04 Docusate Sodium Liq 100 Mg/10 Ml Udc FEED TUBE 100 mg Q12HR MIRNA Administration Donepezil HCl 5 mg 03/19/24 21:00 03/23/24 21:54 Donepezil Hcl 5 Mg Tablet PO 5 mg HS MIRNA Administration Doxazosin Mesylate 1 mg 03/19/24 18:00 03/23/24 17:06 Doxazosin Mesylate 1 Mg Tablet FEED TUBE 1 mg QPM MIRNA Administration Fluticasone Propionate 2 spray 03/22/24 11:45 03/24/24 09:06 Fluticasone Propionate 0.05% Na Spr 16 Gm Btl (*Bkc) NASAL 2 spray QAM MIRNA Administration Heparin Sodium (Porcine) 5,000 units 03/19/24 09:00 03/24/24 09:17 Heparin Sodium 5,000 Units/Ml Vial SUB-Q 5,000 units Q12HR MIRNA Administration Hydroxyzine Pamoate 25 mg 03/18/24 22:45 03/24/24 09:03 Hydroxyzine Pamoate 25 Mg Capsule FEED TUBE 25 mg Q12HR MIRNA Administration Sodium Chloride 1,000 mls @ 100 mls/hr 03/18/24 20:10 03/24/24 07:23 Normal Saline Iv IV CONT 100 mls/hr .Q10H MIRNA Administration Meropenem 1 gm in 100 mls @ 200 mls/hr 03/23/24 18:00 03/24/24 09:04 IVPB 200 mls/hr Q8H MIRNA Administration Ipratropium [place] 2 spray 03/22/24 13:00 03/24/24 09:08 Ipratropium Nasal [place] 0.03% 15 Ml Bottle NASAL 2 spray TID MIRNA Administration Loratadine 10 mg 03/18/24 22:40 03/24/24 09:04 Loratadine 10 Mg Tablet FEED TUBE 10 mg DAILY PRN Administration Congestion Magnesium Hydroxide 30 ml 03/18/24 22:33 Magnesium Hydroxide Susp 30 Ml Udc FEED TUBE DAILY PRN Constipation Pantoprazole Sodium 40 mg 03/22/24 09:00 03/24/24 09:17 Pantoprazole Sodium Iv 40 Mg Vial IV PUSH 40 mg Q12HR MIRNA Administration Saccharomyces Boulardii 250 mg 03/19/24 09:00 03/24/24 09:04 Saccharomyces Boulardii 250 Mg Capsule FEED TUBE 250 mg BID MIRNA Administration Saliva Substitute 10 ml 03/20/24 13:00 03/24/24 09:06 Saliva Substitute Rinse 473 Ml Bottle PO 10 ml QID MIRNA Administration Timolol Maleate 1 drop 03/20/24 09:50 03/24/24 09:06 Timolol Maleate 0.5% Op Soln 5 Ml Bottle EACH EYE 1 drop Q12HR MIRNA Administration Radiology Results: ITS Impressions Chest CT 03/18/24 17:48 IMPRESSION: 1. Right-sided pneumonia with a posterior and lower lung predominance. 2. Material in the right middle lobe and right lower lobe bronchi, which may be mucous plugging or aspirated material. 3. Moderate emphysema. 4. Mild mediastinal lymphadenopathy, likely reactive. Abdomen Ultrasound 03/21/24 16:41 IMPRESSION: No significant abnormality Chest X-Ray 03/22/24 08:01 IMPRESSION: 1. Airspace opacities in right mid and lower lung zones and left lower lung zone with mild worsening on the left, consistent with pneumonia. Labs Labs: Laboratory Results - last 24 hr 03/23/24 03/23/24 03/24/24 12:14 18:22 00:09 WBC RBC Hgb Hct MCV MCH MCHC RDW Plt Count MPV Immature Gran % (Auto) Neut % (Auto) Lymph % (Auto) [place] % (Auto) Eos % (Auto) Baso % (Auto) Lymph # (Auto) [place] # (Auto) Eos # (Auto) Baso # (Auto) Abs Immat Gran (auto) Absolute Neuts (auto) Absolute Nucleated RBC Nucleated RBC % Sodium Potassium Chloride Carbon Dioxide Anion Gap BUN Creatinine Estim Creat Clear Calc Estimated GFR Glucose POC Capillary Glucose 135 H 123 H 118 H Calcium Total Bilirubin AST ALT Alkaline Phosphatase Total Protein Albumin 03/24/24 03/24/24 05:12 05:23 WBC 7.2 RBC 3.41 L Hgb 10.4 L Hct 31.8 L MCV 93.3 MCH 30.5 MCHC 32.7 RDW 13.5 Plt Count 169 MPV 11.1 H Immature Gran % (Auto) 1.0 H Neut % (Auto) 78.8 H Lymph % (Auto) 9.9 L [place] % (Auto) 6.6 Eos % (Auto) 3.6 Baso % (Auto) 0.1 L Lymph # (Auto) 0.71 L [place] # (Auto) 0.5 Eos # (Auto) 0.3 Baso # (Auto) 0.0 Abs Immat Gran (auto) 0.07 H Absolute Neuts (auto) 5.6 Absolute Nucleated RBC 0.000 Nucleated RBC % 0.0 Sodium 139 Potassium 3.6 Chloride 112 H Carbon Dioxide 28 Anion Gap -1 L BUN 18 Creatinine 0.80 Estim Creat Clear Calc 73 Estimated GFR > 60 Glucose 110 POC Capillary Glucose 122 H Calcium 8.5 Total Bilirubin 0.5 AST 52 ALT 107 H Alkaline Phosphatase 293 H Total Protein 6.0 L Albumin 2.5 L Quality VTE Prophylaxis VTE prophylaxis: pharmacologic ordered
[2024-03-24 12:17] LABS: Glucose Point of Care 95 mg/dl (65-105)
[2024-03-24] MEDS: ACETAMINOPHEN 325 MG TABLET 650 MG FEED TUBE (12:38)
--- NOTE | 2024-03-24 13:07 | PCNFU ---
Nutrition Follow-Up Complete: Severe Protein Calorie Malnutrition as related to inadequate protein energy intake a evidenced by significant weight loss of 13% (14 ibs) 4 months, severe subcutanoeous fat loss (orbital fat pads) and severe muscle wasting (temporalis, clavicle). goal:Meet estimated nutritional needs Patient is meeting goal. No new goal. Pt current nutrition is Nepro at 50 ml/hr with Prosource once daily. Last recorded weight is 87.6 kg, up from 70 kg 01/21. Nursing is aware of weight change. Bowel Motility: +BM reported 03/24 Labs Reviewed: Alb 2.5, Hgb 10.4, Hct 31.8 Meds Noted:B12, Lipitor, Meropenem, Protonix. Skin: Stage 1 Pressure ulcer-right hip Additional Notes: Pateint remains on PEG tube feedings of Nepro at 50 ml/hr and tolerating. Tube feedings providing 1980 kcal/89 gm protein/800 ml water. Meeting 100% kcal needs at 30 kcal/kg and 100% protein needs at 1.0-1.2 gm/kg. Spoke with Hospitalist today regrading Normal Saline orders. Plans to discontinue fluids. Na lab WNL. Protein Modular of Prosource providing an additional 80 kcal and 20 gm protein. Agree with diet orders. Will monitor weight, labs, skin, meds, tube feedings every Saturday and Saturday.
--- NOTE | 2024-03-24 17:06 | PCRCNOTE ---
Window of time for administration has passed. See next scheduled administration.
[2024-03-24] MEDS: ATORVASTATIN 20 MG TABLET FEED TUBE (17:27)
[2024-03-24] MEDS: DOXAZOSIN MESYLATE 1 MG TABLET FEED TUBE (17:27)
[2024-03-24 18:05] LABS: Glucose Point of Care 115 mg/dl (65-105)
[2024-03-24 20:39] LABS: Glucose Point of Care 120 mg/dl (65-105)
[2024-03-24] MEDS: DONEPEZIL HCL 5 MG TABLET PO (21:57)
[2024-03-24] MEDS: ACETAMINOPHEN ELIXIR 325 MG/10.15 ML UDC 650 MG FEED TUBE (22:36)
[2024-03-25] VITALS (21 sets, daily range): BP systolic 119–129; BP diastolic 56–73; PULSE 66–91; RESP 16–20; TEMP 37.2–38.2; O2SAT 89–95
[2024-03-25] MEDS: MEROPENEM 1 GM/NS 100 ML BAG IVPB ×3 (01:37→17:54)
[2024-03-25] MEDS: IPRATROPIUM 0.5 MG/ALBUTEROL SULFATE 2.5 MG AMPUL.NEB 3 ML INHALATION ×5 (02:45→19:53)
[2024-03-25 05:20] LABS: Basophils Percent Auto 0.5 % (0.2-1.2); Eosinophils Absolute Auto 0.2 K/mm3 (0-0.3); Immature Granulocyte Absolute 0.06 K/mm3 (0.00-0.031); Immature Granulocyte Percent A 0.9 % (0-0.5); Lymphocytes Absolute Auto 0.72 K/mm3 (0.9-3.2); Lymphocytes Percent Auto 10.9 % (18.3-44.2); Mean Corpuscular HGB Conc 33.3 g/dl (32-36); Mean Corpuscular Hemoglobin 30.8 pg (26-34); Mean Corpuscular Volume 92.3 fl (80-100); Mean Platelet Volume 11.3 fl (7.4-10.4); Monocytes Absolute Auto 0.5 K/mm3 (0.1-0.6); Monocytes Percent Auto 6.8 % (2.6-8.5); Neutrophils Absolute Auto 5.1 K/mm3 (1.3-6.7); Neutrophils Percent Auto 77.9 % (45.5-73.1); Platelet Count Result 183 k/mm3 (150-375); Red Blood Count 3.25 M/mm3 (4.6-6.20); Red Cell Distribution Width 13.4 % (11.5-14.5); White Blood Count 6.6 K/mm3 (4.5-10.0)
[2024-03-25 05:34] LABS: Alanine Aminotransferase 79 U/L (6-50); Albumin Level 2.2 g/dL (3.5-5.1); Alkaline Phosphatase 307 U/L (38-126); Anion Gap 1 mmol/L (4-12); Aspartate Amino Transferase 43 U/L (17-59); Bilirubin,Total 0.5 mg/dL (0.2-1.3); Blood Urea Nitrogen 17 mg/dL (9-20); Calcium 8.2 mg/dL (8.4-10.2); Carbon Dioxide 27 mmol/L (22-30); Chloride 109 mmol/L (98-107); Estimated CRCL calculation 65 ml/min; Estimated Glomerular Filt Rate > 60; Glucose 111 mg/dL (65-110); Potassium 3.2 mmol/L (3.4-5.0); Sodium 137 mmol/L (137-145)
[2024-03-25 06:36] LABS: Glucose Point of Care 111 mg/dl (65-105)
--- NOTE | 2024-03-25 08:52 | PM.IMPN ---
Progress Note: A&P Assessment and Plan (1) Sepsis: Qualifiers: Sepsis type: sepsis due to unspecified organism Sepsis acute organ dysfunction status: with acute organ dysfunction Severe sepsis acute organ dysfunction type: acute respiratory failure Acute respiratory failure type: with hypoxia Severe sepsis shock status: without septic shock Qualified Code(s): A41.9 - Sepsis, unspecified organism; R65.20 - Severe sepsis without septic shock; J96.01 - Acute respiratory failure with hypoxia Code(s): A41.9 - Sepsis, unspecified organism Status: Resolved Assessment and Plan: Sepsis Low grade temp Patient met sepsis criteria on admission with tachycardia, tachypnea, hypotenision, CXR consistent with PNA, a failure. --Blood cultures negative x2- No growth. --Max Temp 102.3 on 03/23/24. -- BCX2- NGTD, -- Urine culture negative, -- WBC wnl. -- Currently on Meropenem 1 gm IVPB q 8. (2) Aspiration pneumonia: Qualifiers: Aspiration pneumonia type: unspecified Laterality: right Lung location: unspecified part of lung Qualified Code(s): J69.0 - Pneumonitis due to inhalation of food and vomit Code(s): J69.0 - Pneumonitis due to inhalation of food and vomit Status: Acute Assessment and Plan: Treating aspiration pneumonia. Had an episode of emesis 03/22 Chest x-ray Airspace opacities in right mid and lower lung zones and left lower lung zone with mild worsening on the left, consistent with pneumonia --Previously on Unasyn, now on Meropenem 1 gm IVPB q 8. -- Continue oral suctioning -- Continue aspiration precautions. (3) COPD (chronic obstructive pulmonary disease): Qualifiers: COPD type: COPD with acute lower respiratory infection Qualified Code(s): J44.0 - Chronic obstructive pulmonary disease with (acute) lower respiratory infection Code(s): J44.9 - Chronic obstructive pulmonary disease, unspecified Status: Acute Assessment and Plan: COPD Seen by Pulmonary and we appreciate recommendations Continuing scheduled duonebs. (4) AMS (altered mental status): Qualifiers: Altered mental status type: unspecified Qualified Code(s): R41.82 - Altered mental status, unspecified Code(s): R41.82 - Altered mental status, unspecified Status: Chronic Assessment and Plan: Seems at baseline. Hx dementia (5) Transaminitis: Code(s): R74.01 - Elevation of levels of liver transaminase levels Status: Chronic Assessment and Plan: Transaminitis Chronic and trending down. 03/21 US abdomen no gallstones or gallbladder wall thickening --Continue to follow trend. (6) Dementia: Qualifiers: Dementia type: unspecified type Dementia severity: severe Dementia behavioral or psychological symptom: unspecified whether behavioral, psychotic, or mood disturbance or anxiety Qualified Code(s): F03.C0 - Unspecified dementia, severe, without behavioral disturbance, psychotic disturbance, mood disturbance, and anxiety Code(s): F03.90 - Unspecified dementia, unspecified severity, without behavioral disturbance, psychotic disturbance, mood disturbance, and anxiety Status: Chronic Assessment and Plan: Dementia Hx G-tube, malnutrition. Receiving tube feeds and tolerating well. Supportive care Turn q2 Respiratory failure likely related to dementia and inability to clear secretions due to mental status (7) Acute hypoxemic respiratory failure: Code(s): J96.01 - Acute respiratory failure with hypoxia Status: Acute Assessment and Plan: Acute hypoxic respiratory failure Aspiration pneumonia Started empiric rocephin IM outpatient, azithromycin, Vancomycin, changed to Unasyn. Weaned off oxygen. MRSA PCR was negative. --Worsening infiltrates on chest x-ray. - Seen by Pulmonary following, appreciate recommendations --Previously on Unasyn and now on Meropenem 1 gm IVPB q 8. --Aspiration precautions, elevate HOB --NPO. Artificial saliva, frequent oral care. Continue peridex --Suctioning prn --Continue flonase and ipatropium nasal spray (8) Anemia: Code(s): D64.9 - Anemia, unspecified Status: Acute Assessment and Plan: --Hgb stable. --Seen by GI. -- Had EGD x2 last few months when G-tube was placed without major findings. -- No need to repeat endoscopic evaluation, anemia probably multifactorial per GI. (9) Hypokalemia: Code(s): E87.6 - Hypokalemia Status: Acute Assessment and Plan: Continue to replete as needed. Plan Time Spent With Patient Time with patient: 25 - 35 minutes Subjective Date/time seen: 03/25/24 08:52 Patient non-verbal Interval history: Patient on bedrest and looks to be in no acute distress. Review of Systems Review of Systems: All systems reviewed & are unremarkable except as noted in HPI and below ROS unobtainable: Yes unobtainable due to mental status and other (Patient non-verbal) Exam Narrative: CONSTITUTIONAL: Nonverbal, calm on bedrest and in no acute distress. HENMT: head is atraumatic and normocephalic. Poor oral hygiene present. Dry MM. Coarse upper airway NECK: Limited range of motion RESPIRATORY: Faint crackles BLL, Poor effort for inspiration and does not follow commands. CARDIO: RRR, S1 and S2 present. GI: Soft, NT, BS present x4 quads without any distention. No peritoneal signs. : Incontinent SKIN: Stage 1 wound x2 to the right hip. Dressing in place. Small skin tear also to right upper thigh posteriorly. NEURO: Hung LE contracture. Objective Data Vital Signs Vital Signs: Vital Signs - 24 hr 03/24/24 11:22 03/24/24 11:28 03/24/24 12:00 Temperature Pulse Rate 77 78 93 Respiratory Rate 24 H 20 Blood Pressure Pulse Oximetry Oxygen Delivery Oxygen Flow Rate Fraction of Inspired Oxygen 03/24/24 13:30 03/24/24 14:26 03/24/24 16:00 Temperature 100.6 F H 99.8 F H Pulse Rate 84 83 Respiratory Rate 18 Blood Pressure 143/88 H Pulse Oximetry 91 Oxygen Delivery Oxygen Flow Rate Fraction of Inspired Oxygen 03/24/24 17:49 03/24/24 19:23 03/24/24 20:00 Temperature 99.3 F 100.6 F H Pulse Rate 80 Respiratory Rate 16 Blood Pressure 140/73 Pulse Oximetry 91 Oxygen Delivery Nasal Cannula Oxygen Flow Rate 2 Fraction of Inspired Oxygen 21 03/24/24 20:00 03/24/24 22:36 03/24/24 23:36 Temperature 102.0 F H 101.1 F H Pulse Rate 91 Respiratory Rate Blood Pressure Pulse Oximetry Oxygen Delivery Oxygen Flow Rate Fraction of Inspired Oxygen 03/25/24 00:00 03/25/24 02:46 03/25/24 02:56 Temperature Pulse Rate 91 75 77 Respiratory Rate 20 20 Blood Pressure Pulse Oximetry Oxygen Delivery Oxygen Flow Rate Fraction of Inspired Oxygen 03/25/24 04:00 03/25/24 04:45 03/25/24 07:20 Temperature 99.3 F Pulse Rate 77 82 Respiratory Rate 16 Blood Pressure 127/56 L Pulse Oximetry 90 91 Oxygen Delivery Nasal Cannula Oxygen Flow Rate 2 Fraction of Inspired Oxygen 03/25/24 07:20 03/25/24 07:29 Temperature Pulse Rate 77 66 Respiratory Rate 20 20 Blood Pressure Pulse Oximetry Oxygen Delivery Oxygen Flow Rate Fraction of Inspired Oxygen Intake/Output Intake/Output: Intake & Output 03/22/24 03/23/24 03/24/24 03/25/24 23:59 23:59 23:59 23:59 Intake Total 3400 2400 4181 1093 Output Total 1300 600 Balance 3400 2400 2881 493 Meds/Results Medications: Active Medications Generic Name Dose Route Start Last Admin Trade Name Freq PRN Reason Stop Dose Admin Acetaminophen 650 mg 03/24/24 22:31 03/24/24 22:36 Acetaminophen Elixir 325 Mg/10.15 Ml Udc FEED TUBE 650 mg Q4H PRN Administration Mild Pain (1-3) or Fever Albuterol/Ipratropium 3 ml 03/19/24 16:00 03/25/24 07:17 Ipratropium 0.5 Mg/Albuterol Sulfate 2.5 Mg Ampul.Neb 3 Ml INHALATION 3 ml Q4HRT MIRNA Administration Aspirin 81 mg 03/20/24 09:00 03/24/24 09:03 Aspirin 81 Mg Chewable Tablet FEED TUBE 81 mg DAILY MIRNA Administration Atorvastatin Calcium 20 mg 03/19/24 18:00 03/24/24 17:27 Atorvastatin 20 Mg Tablet FEED TUBE 20 mg QPM MIRNA Administration Bisacodyl 10 mg 03/18/24 22:33 Bisacodyl 10 Mg Suppository RECTAL DAILY PRN Constipation Bisacodyl 10 mg 03/21/24 09:00 03/24/24 12:01 Bisacodyl 10 Mg Suppository RECTAL Not Given QAM MIRNA Chlorhexidine Gluconate 15 ml 03/21/24 09:00 03/24/24 17:28 Chlorhexidine Gluconate 0.12% Oral Rinse 473 Ml Btl (*Bkc) SWISH/SPIT 15 ml BID MIRNA Administration Cyanocobalamin 1,000 mcg 03/19/24 09:00 03/24/24 09:03 Cyanocobalamin 1,000 Mcg Tablet FEED TUBE 1,000 mcg DAILY MIRNA Administration Docusate Sodium 100 mg 03/19/24 09:00 03/24/24 21:57 Docusate Sodium Liq 100 Mg/10 Ml Udc FEED TUBE 100 mg Q12HR MIRNA Administration Donepezil HCl 5 mg 03/19/24 21:00 03/24/24 21:57 Donepezil Hcl 5 Mg Tablet PO 5 mg HS MIRNA Administration Doxazosin Mesylate 1 mg 03/19/24 18:00 03/24/24 17:27 Doxazosin Mesylate 1 Mg Tablet FEED TUBE 1 mg QPM MIRNA Administration Fluticasone Propionate 2 spray 03/22/24 11:45 03/24/24 09:06 Fluticasone Propionate 0.05% Na Spr 16 Gm Btl (*Bkc) NASAL 2 spray QAM MIRNA Administration Heparin Sodium (Porcine) 5,000 units 03/19/24 09:00 03/24/24 21:57 Heparin Sodium 5,000 Units/Ml Vial SUB-Q 5,000 units Q12HR MIRNA Administration Hydroxyzine Pamoate 25 mg 03/18/24 22:45 03/24/24 21:57 Hydroxyzine Pamoate 25 Mg Capsule FEED TUBE 25 mg Q12HR MIRNA Administration Meropenem 1 gm in 100 mls @ 200 mls/hr 03/23/24 18:00 03/25/24 02:07 IVPB Infused Q8H MIRNA Infusion Ipratropium [place] 2 spray 03/22/24 13:00 03/24/24 17:28 Ipratropium Nasal [place] 0.03% 15 Ml Bottle NASAL 2 spray TID MIRNA Administration Loratadine 10 mg 03/18/24 22:40 03/24/24 09:04 Loratadine 10 Mg Tablet FEED TUBE 10 mg DAILY PRN Administration Congestion Magnesium Hydroxide 30 ml 03/18/24 22:33 Magnesium Hydroxide Susp 30 Ml Udc FEED TUBE DAILY PRN Constipation Pantoprazole Sodium 40 mg 03/22/24 09:00 03/24/24 21:57 Pantoprazole Sodium Iv 40 Mg Vial IV PUSH 40 mg Q12HR MIRNA Administration Saccharomyces Boulardii 250 mg 03/19/24 09:00 03/24/24 17:27 Saccharomyces Boulardii 250 Mg Capsule FEED TUBE 250 mg BID MIRNA Administration Saliva Substitute 10 ml 03/20/24 13:00 03/24/24 21:57 Saliva Substitute Rinse 473 Ml Bottle PO 10 ml QID MIRNA Administration Timolol Maleate 1 drop 03/20/24 09:50 03/24/24 21:57 Timolol Maleate 0.5% Op Soln 5 Ml Bottle EACH EYE 1 drop Q12HR MIRNA Administration Radiology Results: ITS Impressions Chest CT 03/18/24 17:48 IMPRESSION: 1. Right-sided pneumonia with a posterior and lower lung predominance. 2. Material in the right middle lobe and right lower lobe bronchi, which may be mucous plugging or aspirated material. 3. Moderate emphysema. 4. Mild mediastinal lymphadenopathy, likely reactive. Abdomen Ultrasound 03/21/24 16:41 IMPRESSION: No significant abnormality Chest X-Ray 03/22/24 08:01 IMPRESSION: 1. Airspace opacities in right mid and lower lung zones and left lower lung zone with mild worsening on the left, consistent with pneumonia. Labs Labs: Laboratory Results - last 24 hr 03/24/24 03/24/24 03/24/24 11:50 18:03 19:16 WBC RBC Hgb Hct MCV MCH MCHC RDW Plt Count MPV Immature Gran % (Auto) Neut % (Auto) Lymph % (Auto) [place] % (Auto) Eos % (Auto) Baso % (Auto) Lymph # (Auto) [place] # (Auto) Eos # (Auto) Baso # (Auto) Abs Immat Gran (auto) Absolute Neuts (auto) Absolute Nucleated RBC Nucleated RBC % Sodium Potassium Chloride Carbon Dioxide Anion Gap BUN Creatinine Estim Creat Clear Calc Estimated GFR Glucose POC Capillary Glucose 95 115 H 120 H Calcium Total Bilirubin AST ALT Alkaline Phosphatase Total Protein Albumin 03/25/24 03/25/24 04:01 06:33 WBC 6.6 RBC 3.25 L Hgb 10.0 L Hct 30.0 L MCV 92.3 MCH 30.8 MCHC 33.3 RDW 13.4 Plt Count 183 MPV 11.3 H Immature Gran % (Auto) 0.9 H Neut % (Auto) 77.9 H Lymph % (Auto) 10.9 L [place] % (Auto) 6.8 Eos % (Auto) 3.0 Baso % (Auto) 0.5 Lymph # (Auto) 0.72 L [place] # (Auto) 0.5 Eos # (Auto) 0.2 Baso # (Auto) 0.0 Abs Immat Gran (auto) 0.06 H Absolute Neuts (auto) 5.1 Absolute Nucleated RBC 0.000 Nucleated RBC % 0.0 Sodium 137 Potassium 3.2 L Chloride 109 H Carbon Dioxide 27 Anion Gap 1 L BUN 17 Creatinine 0.90 Estim Creat Clear Calc 65 Estimated GFR > 60 Glucose 111 H POC Capillary Glucose 111 H Calcium 8.2 L Total Bilirubin 0.5 AST 43 ALT 79 H Alkaline Phosphatase 307 H Total Protein 5.0 L Albumin 2.2 L Quality VTE Prophylaxis VTE prophylaxis: pharmacologic ordered Hospitalist MIPS Advance Care Plan I have confirmed that the patient's Advanced Care Plan is present, code status is documented, or surrogate decision maker is listed in patient medical record.: Yes Medication Reconciliation I have utilized all available resources to obtain, update and review the patients current medications (includes all prescriptions, OTC, herbals, cannabis, and nutritional supplements).: Yes
[2024-03-25] MEDS: ASPIRIN 81 MG CHEWABLE TABLET FEED TUBE (09:56)
[2024-03-25] MEDS: CYANOCOBALAMIN 1,000 MCG TABLET 1000 MCG FEED TUBE (09:56)
[2024-03-25] MEDS: hydrOXYzine pamoate 25 MG CAPSULE FEED TUBE ×2 (09:56→22:48)
[2024-03-25] MEDS: PANTOPRAZOLE SODIUM IV 40 MG VIAL IV PUSH ×2 (09:57→22:50)
[2024-03-25] MEDS: SACCHAROMYCES BOULARDII 250 MG CAPSULE FEED TUBE ×2 (09:57→17:52)
[2024-03-25] MEDS: POTASSIUM CHLORIDE 20 MEQ PACKET (FOR LIQUID) 40 MEQ FEED TUBE (09:57)
[2024-03-25] MEDS: SALIVA SUBSTITUTE RINSE 473 ML BOTTLE 10 ML PO ×4 (09:58→22:48)
[2024-03-25] MEDS: CHLORHEXIDINE GLUCONATE 0.12% ORAL RINSE 473 ML BTL (*BKC) 15 ML SWISH/SPIT ×2 (09:58→17:53)
[2024-03-25] MEDS: TIMOLOL MALEATE 0.5% OP SOLN 5 ML BOTTLE 1 DROP EACH EYE ×2 (09:59→22:47)
[2024-03-25] MEDS: IPRATROPIUM NASAL SPRAY 0.03% 15 ML BOTTLE 2 SPRAY NASAL ×3 (09:59→17:53)
[2024-03-25] MEDS: HEPARIN SODIUM 5,000 UNITS/ML VIAL 5000 UNITS SUB-Q ×2 (09:59→22:50)
[2024-03-25] MEDS: FLUTICASONE PROPIONATE 0.05% NA SPR 16 GM BTL (*BKC) 2 SPRAY NASAL (09:59)
[2024-03-25 12:05] LABS: Glucose Point of Care 123 mg/dl (65-105)
[2024-03-25] MEDS: ACETAMINOPHEN ELIXIR 325 MG/10.15 ML UDC 650 MG FEED TUBE (14:57)
[2024-03-25] MEDS: ATORVASTATIN 20 MG TABLET FEED TUBE (17:52)
[2024-03-25] MEDS: DOXAZOSIN MESYLATE 1 MG TABLET FEED TUBE (17:52)
[2024-03-25] MEDS: VANCOMYCIN 1,250 MG/NS 250 ML 1,250 MG/250 ML BAG 166.67 MG IVPB (18:37)
[2024-03-25 19:06] LABS: Glucose Point of Care 123 mg/dl (65-105)
[2024-03-25] MEDS: VANCOMYCIN 1,000 MG/NS 250 ML 1,000 MG/250 ML BAG 250 MG IVPB (19:57)
[2024-03-25] MEDS: DONEPEZIL HCL 5 MG TABLET PO (22:48)
[2024-03-25] MEDS: DOCUSATE SODIUM LIQ 100 MG/10 ML UDC FEED TUBE (22:50)
[2024-03-25 23:59] LABS: Glucose Point of Care 134 mg/dl (65-105)
[2024-03-26] VITALS (17 sets, daily range): BP systolic 124–148; BP diastolic 67–79; PULSE 76–101; RESP 17–20; TEMP 36.7–37.6; O2SAT 90–98
[2024-03-26 00:27] LABS: MRSA (PCR) NOT DETECTED (NOT DETECTE)
[2024-03-26] MEDS: IPRATROPIUM 0.5 MG/ALBUTEROL SULFATE 2.5 MG AMPUL.NEB 3 ML INHALATION ×5 (00:44→20:25)
[2024-03-26] MEDS: MEROPENEM 1 GM/NS 100 ML BAG IVPB ×3 (02:03→17:40)
[2024-03-26 06:08] LABS: Basophils Percent Auto 0.2 % (0.2-1.2); Eosinophils Absolute Auto 0.1 K/mm3 (0-0.3); Eosinophils Percent Auto 1.4 % (0-4.4); Hematocrit 30.7 % (42.0-52.0); Hemoglobin 10.2 g/dL (14.0-18.0); Immature Granulocyte Absolute 0.06 K/mm3 (0.00-0.031); Immature Granulocyte Percent A 0.7 % (0-0.5); Lymphocytes Absolute Auto 0.66 K/mm3 (0.9-3.2); Lymphocytes Percent Auto 7.3 % (18.3-44.2); Mean Corpuscular HGB Conc 33.2 g/dl (32-36); Mean Corpuscular Volume 90.3 fl (80-100); Mean Platelet Volume 11.1 fl (7.4-10.4); Monocytes Absolute Auto 0.5 K/mm3 (0.1-0.6); Monocytes Percent Auto 5.2 % (2.6-8.5); Neutrophils Absolute Auto 7.7 K/mm3 (1.3-6.7); Neutrophils Percent Auto 85.2 % (45.5-73.1); Platelet Count Result 236 k/mm3 (150-375); Red Cell Distribution Width 13.5 % (11.5-14.5); White Blood Count 9.1 K/mm3 (4.5-10.0)
[2024-03-26 06:22] LABS: Alanine Aminotransferase 71 U/L (6-50); Albumin Level 2.4 g/dL (3.5-5.1); Alkaline Phosphatase 309 U/L (38-126); Anion Gap -1 mmol/L (4-12); Aspartate Amino Transferase 42 U/L (17-59); Bilirubin,Total 0.5 mg/dL (0.2-1.3); Blood Urea Nitrogen 16 mg/dL (9-20); Calcium 8.4 mg/dL (8.4-10.2); Carbon Dioxide 27 mmol/L (22-30); Chloride 109 mmol/L (98-107); Estimated CRCL calculation 73 ml/min; Estimated Glomerular Filt Rate > 60; Glucose 125 mg/dL (65-110); Potassium 3.3 mmol/L (3.4-5.0); Sodium 135 mmol/L (137-145)
[2024-03-26 06:33] LABS: Glucose Point of Care 133 mg/dl (65-105)
--- NOTE | 2024-03-26 08:40 | P.PNIM_ITS ---
Progress Note: A&P Assessment and Plan (1) Sepsis: Qualifiers: Sepsis type: sepsis due to unspecified organism Sepsis acute organ dysfunction status: with acute organ dysfunction Severe sepsis acute organ dysfunction type: acute respiratory failure Acute respiratory failure type: with hypoxia Severe sepsis shock status: without septic shock Qualified Code(s): A41.9 - Sepsis, unspecified organism; R65.20 - Severe sepsis without septic shock; J96.01 - Acute respiratory failure with hypoxia Code(s): A41.9 - Sepsis, unspecified organism Status: Resolved Assessment and Plan: Sepsis Low grade temp Patient met sepsis criteria on admission with tachycardia, tachypnea, hypotenision, CXR consistent with PNA, a failure. --Blood cultures negative x2- No growth. --Max Temp 102.3 on 03/23/24. -- No fevers last 24 hrs. -- BCX2- NGTD, -- Urine culture negative, -- WBC wnl. -- Currently on Meropenem and Vancomycin IV. -- Continue current treatment. (2) Aspiration pneumonia: Qualifiers: Aspiration pneumonia type: unspecified Laterality: right Lung location: unspecified part of lung Qualified Code(s): J69.0 - Pneumonitis due to inhalation of food and vomit Code(s): J69.0 - Pneumonitis due to inhalation of food and vomit Status: Acute Assessment and Plan: Treating aspiration pneumonia. Had an episode of emesis 03/22 Chest x-ray Airspace opacities in right mid and lower lung zones and left lower lung zone with mild worsening on the left, consistent with pneumonia --Previously on Unasyn, now on Meropenem and Vancomycin. -- Continue oral suctioning -- Continue aspiration precautions. -- Other mgt as # 1 above. (3) COPD (chronic obstructive pulmonary disease): Qualifiers: COPD type: COPD with acute lower respiratory infection Qualified Code(s): J44.0 - Chronic obstructive pulmonary disease with (acute) lower respiratory infection Code(s): J44.9 - Chronic obstructive pulmonary disease, unspecified Status: Acute Assessment and Plan: * COPD * Seen by Pulmonary and we appreciate recommendations * Continue scheduled duonebs. * Continue supplemental O2 for now, now on 2L/NC. (4) AMS (altered mental status): Qualifiers: Altered mental status type: unspecified Qualified Code(s): R41.82 - Altered mental status, unspecified Code(s): R41.82 - Altered mental status, unspecified Status: Chronic Assessment and Plan: Seems at baseline. Hx dementia (5) Transaminitis: Code(s): R74.01 - Elevation of levels of liver transaminase levels Status: Chronic Assessment and Plan: Transaminitis * Chronic and trending down. 03/21 US abdomen no gallstones or gallbladder wall thickening --Continue to follow trend. (6) Dementia: Qualifiers: Dementia type: unspecified type Dementia severity: severe Dementia behavioral or psychological symptom: unspecified whether behavioral, psychotic, or mood disturbance or anxiety Qualified Code(s): F03.C0 - Unspecified dementia, severe, without behavioral disturbance, psychotic disturbance, mood disturbance, and anxiety Code(s): F03.90 - Unspecified dementia, unspecified severity, without behavioral disturbance, psychotic disturbance, mood disturbance, and anxiety Status: Chronic Assessment and Plan: Dementia Hx G-tube, malnutrition. Receiving tube feeds and tolerating well. Supportive care. Turn q2. Respiratory failure possibly related to dementia and inability to clear secretions due to altered mental status (7) Acute hypoxemic respiratory failure: Code(s): J96.01 - Acute respiratory failure with hypoxia Status: Acute Assessment and Plan: Acute hypoxic respiratory failure Aspiration pneumonia --Currently on Meropenem and Vancomycin. MRSA PCR was negative. --Worsening infiltrates on chest x-ray and fevers. - Seen by Pulmonary, appreciate recommendations. --Aspiration precautions, elevate HOB --NPO. Artificial saliva, frequent oral care. Continue peridex --Suctioning prn --Continue flonase and ipatropium nasal spray. (8) Anemia: Code(s): D64.9 - Anemia, unspecified Status: Acute Assessment and Plan: --Hgb currently appears stable. --Seen by GI. -- Had EGD x2 last few months when G-tube was placed without major findings. -- No need to repeat endoscopic evaluation, anemia probably multifactorial per GI. (9) Hypokalemia: Code(s): E87.6 - Hypokalemia Status: Acute Assessment and Plan: * Continue to replete as needed. Plan Time Spent With Patient Time with patient: 15 - 25 minutes Subjective Date/time seen: 03/26/24 08:40 Patient non-verbal but looks comfortable. Interval history: Patient calm on bedrest and looks to be in no acute distress. Review of Systems Review of Systems: ROS unobtainable: Yes unobtainable due to medical condition (Dementia), unobtainable due to mental status and other (Patient non-verbal) Exam Narrative: CONSTITUTIONAL: Nonverbal, calm on bedrest and in no acute distress. HENMT: Atraumatic and normocephalic. Poor oral hygiene. Dry MM. NECK: Limited range of motion RESPIRATORY: Coarse to BLL, Poor effort for inspiration and does not follow commands. CARDIO: RRR, S1 and S2 present. GI: Soft, NT, BS present x4 quads without any distention. No peritoneal signs. : Incontinent SKIN: Stage 1 wound x2 to the right hip. Dressing in place. Small skin tear also to right upper thigh posteriorly. NEURO: Hung LE weakness. Objective Data Vital Signs Vital Signs: Vital Signs - 24 hr 03/25/24 10:00 03/25/24 12:00 03/25/24 12:07 Temperature Pulse Rate 83 Respiratory Rate Blood Pressure Pulse Oximetry 91 95 Oxygen Delivery Nasal Cannula Nasal Cannula Oxygen Flow Rate 2 2 03/25/24 12:07 03/25/24 12:18 03/25/24 14:45 Temperature 100.7 F H Pulse Rate 83 87 87 Respiratory Rate 20 20 20 Blood Pressure 119/73 Pulse Oximetry 90 Oxygen Delivery Oxygen Flow Rate 03/25/24 14:57 03/25/24 15:57 03/25/24 16:00 Temperature 100.7 F H 98.9 F Pulse Rate 84 Respiratory Rate Blood Pressure Pulse Oximetry Oxygen Delivery Oxygen Flow Rate 03/25/24 16:28 03/25/24 19:51 03/25/24 19:57 Temperature 99.7 F H Pulse Rate 88 87 Respiratory Rate 20 20 Blood Pressure 129/68 Pulse Oximetry 94 89 L Oxygen Delivery Nasal Cannula Oxygen Flow Rate 2 03/25/24 19:57 03/25/24 20:00 03/25/24 20:00 Temperature Pulse Rate 84 83 Respiratory Rate 20 Blood Pressure Pulse Oximetry 94 Oxygen Delivery Nasal Cannula Oxygen Flow Rate 2 03/25/24 20:07 03/26/24 00:00 03/26/24 00:46 Temperature Pulse Rate 86 77 76 Respiratory Rate 20 20 Blood Pressure Pulse Oximetry Oxygen Delivery Oxygen Flow Rate 03/26/24 04:00 03/26/24 04:40 Temperature 99.7 F H Pulse Rate 87 88 Respiratory Rate 18 Blood Pressure 148/79 H Pulse Oximetry 90 Oxygen Delivery Oxygen Flow Rate Intake/Output Intake/Output: Intake & Output 03/23/24 03/24/24 03/25/24 03/26/24 23:59 23:59 23:59 23:59 Intake Total 2400 4181 1793 900 Output Total 1300 1400 900 Balance 2400 2881 393 0 Meds/Results Medications: Active Medications Generic Name Dose Route Start Last Admin Trade Name Freq PRN Reason Stop Dose Admin Acetaminophen 650 mg 03/24/24 22:31 03/25/24 14:57 Acetaminophen Elixir 325 Mg/10.15 Ml Udc FEED TUBE 650 mg Q4H PRN Administration Mild Pain (1-3) or Fever Albuterol/Ipratropium 3 ml 03/19/24 16:00 03/26/24 07:14 Ipratropium 0.5 Mg/Albuterol Sulfate 2.5 Mg Ampul.Neb 3 Ml INHALATION 3 ml Q4HRT MIRNA Administration Aspirin 81 mg 03/20/24 09:00 03/25/24 09:56 Aspirin 81 Mg Chewable Tablet FEED TUBE 81 mg DAILY MIRNA Administration Atorvastatin Calcium 20 mg 03/19/24 18:00 03/25/24 17:52 Atorvastatin 20 Mg Tablet FEED TUBE 20 mg QPM MIRNA Administration Bisacodyl 10 mg 03/18/24 22:33 Bisacodyl 10 Mg Suppository RECTAL DAILY PRN Constipation Bisacodyl 10 mg 03/21/24 09:00 03/25/24 09:51 Bisacodyl 10 Mg Suppository RECTAL Not Given QAM MIRNA Chlorhexidine Gluconate 15 ml 03/21/24 09:00 03/25/24 17:53 Chlorhexidine Gluconate 0.12% Oral Rinse 473 Ml Btl (*Bkc) SWISH/SPIT 15 ml BID MIRNA Administration Cyanocobalamin 1,000 mcg 03/19/24 09:00 03/25/24 09:56 Cyanocobalamin 1,000 Mcg Tablet FEED TUBE 1,000 mcg DAILY MIRNA Administration Docusate Sodium 100 mg 03/19/24 09:00 03/25/24 22:50 Docusate Sodium Liq 100 Mg/10 Ml Udc FEED TUBE 100 mg Q12HR MIRNA Administration Donepezil HCl 5 mg 03/19/24 21:00 03/25/24 22:48 Donepezil Hcl 5 Mg Tablet PO 5 mg HS MIRNA Administration Doxazosin Mesylate 1 mg 03/19/24 18:00 03/25/24 17:52 Doxazosin Mesylate 1 Mg Tablet FEED TUBE 1 mg QPM MIRNA Administration Fluticasone Propionate 2 spray 03/22/24 11:45 03/25/24 09:59 Fluticasone Propionate 0.05% Na Spr 16 Gm Btl (*Bkc) NASAL 2 spray QAM MIRNA Administration Heparin Sodium (Porcine) 5,000 units 03/19/24 09:00 03/25/24 22:50 Heparin Sodium 5,000 Units/Ml Vial SUB-Q 5,000 units Q12HR MIRNA Administration Hydroxyzine Pamoate 25 mg 03/18/24 22:45 03/25/24 22:48 Hydroxyzine Pamoate 25 Mg Capsule FEED TUBE 25 mg Q12HR MIRNA Administration Meropenem 1 gm in 100 mls @ 200 mls/hr 03/23/24 18:00 03/26/24 02:33 IVPB Infused Q8H MIRNA Infusion Vancomycin HCl 1,500 mg in 500 mls @ 250 mls/hr 03/26/24 12:00 Vancomycin 1,500 Mg/Ns 500 Ml IVPB Q18H MIRNA Ipratropium [place] 2 spray 03/22/24 13:00 03/25/24 17:53 Ipratropium Nasal [place] 0.03% 15 Ml Bottle NASAL 2 spray TID MIRNA Administration Loratadine 10 mg 03/18/24 22:40 03/24/24 09:04 Loratadine 10 Mg Tablet FEED TUBE 10 mg DAILY PRN Administration Congestion Magnesium Hydroxide 30 ml 03/18/24 22:33 Magnesium Hydroxide Susp 30 Ml Udc FEED TUBE DAILY PRN Constipation Pantoprazole Sodium 40 mg 03/22/24 09:00 03/25/24 22:50 Pantoprazole Sodium Iv 40 Mg Vial IV PUSH 40 mg Q12HR MIRNA Administration Saccharomyces Boulardii 250 mg 03/19/24 09:00 03/25/24 17:52 Saccharomyces Boulardii 250 Mg Capsule FEED TUBE 250 mg BID MIRNA Administration Saliva Substitute 10 ml 03/20/24 13:00 03/25/24 22:48 Saliva Substitute Rinse 473 Ml Bottle PO 10 ml QID MIRNA Administration Timolol Maleate 1 drop 03/20/24 09:50 03/25/24 22:47 Timolol Maleate 0.5% Op Soln 5 Ml Bottle EACH EYE 1 drop Q12HR MIRNA Administration Radiology Results: ITS Impressions Chest CT 03/18/24 17:48 IMPRESSION: 1. Right-sided pneumonia with a posterior and lower lung predominance. 2. Material in the right middle lobe and right lower lobe bronchi, which may be mucous plugging or aspirated material. 3. Moderate emphysema. 4. Mild mediastinal lymphadenopathy, likely reactive. Abdomen Ultrasound 03/21/24 16:41 IMPRESSION: No significant abnormality Chest X-Ray 03/22/24 08:01 IMPRESSION: 1. Airspace opacities in right mid and lower lung zones and left lower lung zone with mild worsening on the left, consistent with pneumonia. Labs Labs: Laboratory Results - last 24 hr 03/25/24 03/25/24 03/25/24 12:02 19:01 23:09 WBC RBC Hgb Hct MCV MCH MCHC RDW Plt Count MPV Immature Gran % (Auto) Neut % (Auto) Lymph % (Auto) [place] % (Auto) Eos % (Auto) Baso % (Auto) Lymph # (Auto) [place] # (Auto) Eos # (Auto) Baso # (Auto) Abs Immat Gran (auto) Absolute Neuts (auto) Absolute Nucleated RBC Nucleated RBC % Sodium Potassium Chloride Carbon Dioxide Anion Gap BUN Creatinine Estim Creat Clear Calc Estimated GFR Glucose POC Capillary Glucose 123 H 123 H Calcium Total Bilirubin AST ALT Alkaline Phosphatase Total Protein Albumin Nasal MRSA (PCR) Not detected 03/25/24 03/26/24 03/26/24 23:56 05:25 06:31 WBC 9.1 RBC 3.40 L Hgb 10.2 L Hct 30.7 L MCV 90.3 MCH 30.0 MCHC 33.2 RDW 13.5 Plt Count 236 MPV 11.1 H Immature Gran % (Auto) 0.7 H Neut % (Auto) 85.2 H Lymph % (Auto) 7.3 L [place] % (Auto) 5.2 Eos % (Auto) 1.4 Baso % (Auto) 0.2 Lymph # (Auto) 0.66 L [place] # (Auto) 0.5 Eos # (Auto) 0.1 Baso # (Auto) 0.0 Abs Immat Gran (auto) 0.06 H Absolute Neuts (auto) 7.7 H Absolute Nucleated RBC 0.000 Nucleated RBC % 0.0 Sodium 135 L Potassium 3.3 L Chloride 109 H Carbon Dioxide 27 Anion Gap -1 L BUN 16 Creatinine 0.80 Estim Creat Clear Calc 73 Estimated GFR > 60 Glucose 125 H POC Capillary Glucose 134 H 133 H Calcium 8.4 Total Bilirubin 0.5 AST 42 ALT 71 H Alkaline Phosphatase 309 H Total Protein 6.0 L Albumin 2.4 L Nasal MRSA (PCR) Quality VTE Prophylaxis VTE prophylaxis: pharmacologic ordered Hospitalist [facility] Advance Care Plan I have confirmed that the patient's Advanced Care Plan is present, code status is documented, or surrogate decision maker is listed in patient medical record.: Yes Medication Reconciliation I have utilized all available resources to obtain, update and review the patients current medications (includes all prescriptions, OTC, herbals, cannabis, and nutritional supplements).: Yes
[2024-03-26] MEDS: HEPARIN SODIUM 5,000 UNITS/ML VIAL 5000 UNITS SUB-Q ×2 (08:44→20:15)
[2024-03-26] MEDS: ASPIRIN 81 MG CHEWABLE TABLET FEED TUBE (08:44)
[2024-03-26] MEDS: CYANOCOBALAMIN 1,000 MCG TABLET 1000 MCG FEED TUBE (08:44)
[2024-03-26] MEDS: SACCHAROMYCES BOULARDII 250 MG CAPSULE FEED TUBE ×2 (08:44→17:41)
[2024-03-26] MEDS: PANTOPRAZOLE SODIUM IV 40 MG VIAL IV PUSH ×2 (08:44→20:15)
[2024-03-26] MEDS: hydrOXYzine pamoate 25 MG CAPSULE FEED TUBE ×2 (08:44→20:16)
[2024-03-26] MEDS: IPRATROPIUM NASAL SPRAY 0.03% 15 ML BOTTLE 2 SPRAY NASAL ×3 (08:45→17:41)
[2024-03-26] MEDS: SALIVA SUBSTITUTE RINSE 473 ML BOTTLE 10 ML PO ×4 (08:45→20:18)
[2024-03-26] MEDS: FLUTICASONE PROPIONATE 0.05% NA SPR 16 GM BTL (*BKC) 2 SPRAY NASAL (08:45)
[2024-03-26] MEDS: TIMOLOL MALEATE 0.5% OP SOLN 5 ML BOTTLE 1 DROP EACH EYE ×2 (08:45→20:17)
[2024-03-26] MEDS: CHLORHEXIDINE GLUCONATE 0.12% ORAL RINSE 473 ML BTL (*BKC) 15 ML SWISH/SPIT ×2 (08:45→17:41)
[2024-03-26] MEDS: VANCOMYCIN 1,500 MG/NS 500 ML 1,500 MG/500 ML BAG 200 MG IVPB (11:51)
[2024-03-26 12:22] LABS: Glucose Point of Care 141 mg/dl (65-105)
[2024-03-26] MEDS: ATORVASTATIN 20 MG TABLET FEED TUBE (17:40)
[2024-03-26] MEDS: DOXAZOSIN MESYLATE 1 MG TABLET FEED TUBE (17:41)
[2024-03-26 18:44] LABS: Glucose Point of Care 116 mg/dl (65-105)
[2024-03-26] MEDS: DOCUSATE SODIUM LIQ 100 MG/10 ML UDC FEED TUBE (20:15)
[2024-03-26] MEDS: DONEPEZIL HCL 5 MG TABLET PO (20:15)
[2024-03-27] VITALS (21 sets, daily range): BP systolic 127–148; BP diastolic 72–75; PULSE 78–96; RESP 14–24; TEMP 36.4–36.7; O2SAT 91–100
[2024-03-27] MEDS: IPRATROPIUM 0.5 MG/ALBUTEROL SULFATE 2.5 MG AMPUL.NEB 3 ML INHALATION ×6 (00:45→20:12)
[2024-03-27 01:01] LABS: Glucose Point of Care 123 mg/dl (65-105)
[2024-03-27] MEDS: MEROPENEM 1 GM/NS 100 ML BAG IVPB ×3 (01:15→17:14)
[2024-03-27 05:08] LABS: Glucose Point of Care 125 mg/dl (65-105)
[2024-03-27 05:37] LABS: Alanine Aminotransferase 60 U/L (6-50); Albumin Level 2.3 g/dL (3.5-5.1); Alkaline Phosphatase 289 U/L (38-126); Anion Gap -1 mmol/L (4-12); Aspartate Amino Transferase 43 U/L (17-59); Bilirubin,Total 0.4 mg/dL (0.2-1.3); Blood Urea Nitrogen 16 mg/dL (9-20); Calcium 8.3 mg/dL (8.4-10.2); Carbon Dioxide 30 mmol/L (22-30); Chloride 108 mmol/L (98-107); Estimated CRCL calculation 65 ml/min; Estimated Glomerular Filt Rate > 60; Glucose 114 mg/dL (65-110); Potassium 3.5 mmol/L (3.4-5.0); Sodium 137 mmol/L (137-145)
[2024-03-27 05:45] LABS: Vancomycin Trough 9.9 ug/mL (10.0-20.0)
[2024-03-27] MEDS: VANCOMYCIN 1,500 MG/NS 500 ML 1,500 MG/500 ML BAG 250 MG IVPB (06:20)
[2024-03-27] MEDS: hydrOXYzine pamoate 25 MG CAPSULE FEED TUBE ×2 (08:08→20:22)
[2024-03-27] MEDS: CYANOCOBALAMIN 1,000 MCG TABLET 1000 MCG FEED TUBE (08:08)
[2024-03-27] MEDS: SACCHAROMYCES BOULARDII 250 MG CAPSULE FEED TUBE ×2 (08:08→17:14)
[2024-03-27] MEDS: PANTOPRAZOLE SODIUM IV 40 MG VIAL IV PUSH ×2 (08:08→20:22)
[2024-03-27] MEDS: HEPARIN SODIUM 5,000 UNITS/ML VIAL 5000 UNITS SUB-Q ×2 (08:08→20:22)
[2024-03-27] MEDS: ASPIRIN 81 MG CHEWABLE TABLET FEED TUBE (08:08)
[2024-03-27] MEDS: IPRATROPIUM NASAL SPRAY 0.03% 15 ML BOTTLE 2 SPRAY NASAL ×3 (08:09→17:15)
[2024-03-27] MEDS: FLUTICASONE PROPIONATE 0.05% NA SPR 16 GM BTL (*BKC) 2 SPRAY NASAL (08:09)
[2024-03-27] MEDS: TIMOLOL MALEATE 0.5% OP SOLN 5 ML BOTTLE 1 DROP EACH EYE ×2 (08:09→20:21)
[2024-03-27] MEDS: CHLORHEXIDINE GLUCONATE 0.12% ORAL RINSE 473 ML BTL (*BKC) 15 ML SWISH/SPIT ×2 (08:10→17:14)
[2024-03-27] MEDS: SALIVA SUBSTITUTE RINSE 473 ML BOTTLE 10 ML PO ×4 (08:10→20:22)
--- NOTE | 2024-03-27 09:29 | P.PNIM_ITS ---
Progress Note: A&P Assessment and Plan (1) Sepsis: Qualifiers: Sepsis type: sepsis due to unspecified organism Sepsis acute organ dysfunction status: with acute organ dysfunction Severe sepsis acute organ dysfunction type: acute respiratory failure Acute respiratory failure type: with hypoxia Severe sepsis shock status: without septic shock Qualified Code(s): A41.9 - Sepsis, unspecified organism; R65.20 - Severe sepsis without septic shock; J96.01 - Acute respiratory failure with hypoxia Code(s): A41.9 - Sepsis, unspecified organism Status: Resolved Assessment and Plan: Sepsis Low grade temp Patient met sepsis criteria on admission with tachycardia, tachypnea, hypotenision, CXR consistent with PNA, a failure. -- Blood cultures NGTD. -- Max Temp 102.3 on 03/23/24. -- No fevers last 48 hrs. -- BCX2- NGTD, -- Urine culture negative, -- WBC wnl. -- Currently on Meropenem and Vancomycin IV. -- Continue current treatment. -- We'll consider de-escalating abx in AM. (2) Aspiration pneumonia: Qualifiers: Aspiration pneumonia type: unspecified Laterality: right Lung location: unspecified part of lung Qualified Code(s): J69.0 - Pneumonitis due to inhalation of food and vomit Code(s): J69.0 - Pneumonitis due to inhalation of food and vomit Status: Acute Assessment and Plan: Treating aspiration pneumonia. Had an episode of emesis 03/22 Chest x-ray Airspace opacities in right mid and lower lung zones and left lower lung zone with mild worsening on the left, consistent with pneumonia --Previously on Unasyn, now on Meropenem and Vancomycin. -- Continue oral suctioning -- Continue aspiration precautions. -- Other mgt as # 1 above. (3) Acute hypoxemic respiratory failure: Code(s): J96.01 - Acute respiratory failure with hypoxia Status: Acute Assessment and Plan: Acute hypoxic respiratory failure Aspiration pneumonia --Currently on Meropenem and Vancomycin. MRSA PCR was negative. --Worsening infiltrates on chest x-ray and fevers. - Seen by Pulmonary, appreciate recommendations. --Aspiration precautions, elevate HOB --NPO. Artificial saliva, frequent oral care. Continue peridex --Continue suctioning prn --Continue flonase and ipatropium nasal spray. (4) COPD (chronic obstructive pulmonary disease): Qualifiers: COPD type: COPD with acute lower respiratory infection Qualified Code(s): J44.0 - Chronic obstructive pulmonary disease with (acute) lower respiratory infection Code(s): J44.9 - Chronic obstructive pulmonary disease, unspecified Status: Acute Assessment and Plan: * COPD * Seen by Pulmonary and we appreciate recommendations * Continue scheduled duonebs. * Continue supplemental O2 for now, now on 2L/NC. * Appears compensated currently. (5) AMS (altered mental status): Qualifiers: Altered mental status type: unspecified Qualified Code(s): R41.82 - Altered mental status, unspecified Code(s): R41.82 - Altered mental status, unspecified Status: Chronic Assessment and Plan: Seems at baseline. Hx dementia (6) Transaminitis: Code(s): R74.01 - Elevation of levels of liver transaminase levels Status: Chronic Assessment and Plan: Transaminitis * Chronic and trending down. * Possibly related to infection. 03/21 US abdomen no gallstones or gallbladder wall thickening --Continue to follow trend. (7) Dementia: Qualifiers: Dementia type: unspecified type Dementia severity: severe Dementia behavioral or psychological symptom: unspecified whether behavioral, psychotic, or mood disturbance or anxiety Qualified Code(s): F03.C0 - Unspecified dementia, severe, without behavioral disturbance, psychotic disturbance, mood disturbance, and anxiety Code(s): F03.90 - Unspecified dementia, unspecified severity, without behavioral disturbance, psychotic disturbance, mood disturbance, and anxiety Status: Chronic Assessment and Plan: Dementia Hx G-tube, malnutrition. Receiving tube feeds and tolerating well. Supportive care. Turn q2. Respiratory failure possibly related to dementia and inability to clear secretions due to altered mental status (8) Anemia: Code(s): D64.9 - Anemia, unspecified Status: Acute Assessment and Plan: --Hgb currently appears stable. --Seen by GI. -- Had EGD x2 last few months when G-tube was placed without major findings. -- No need to repeat endoscopic evaluation, anemia probably multifactorial per GI. (9) Hypokalemia: Code(s): E87.6 - Hypokalemia Status: Acute Assessment and Plan: * Continue to replete as needed. Plan Time Spent With Patient Time with patient: 15 - 25 minutes Subjective Date/time seen: 03/27/24 09:29 Patient non-verbal. Interval history: Patient calm on bedrest and looks to be in no acute distress. Review of Systems Review of Systems: ROS unobtainable: Yes unobtainable due to medical condition (Dementia), unobtainable due to mental status and other (Patient non-verbal) Exam Narrative: CONSTITUTIONAL: Nonverbal, calm on bedrest and in no acute distress. HENMT: Atraumatic and normocephalic. Poor oral hygiene. Dry MM. NECK: Limited range of motion RESPIRATORY: Coarse to BLL, Poor effort for inspiration. CARDIO: RRR, no murmurs. GI: Soft, NT, BS present x4 quads without any distention. : Incontinent. SKIN: Stage 1 wound x2 to the right hip. Dressing in place. Small skin tear also to right upper thigh posteriorly. NEURO: Hung LE weakness. Objective Data Vital Signs Vital Signs: Vital Signs - 24 hr 03/26/24 10:51 03/26/24 10:57 03/26/24 12:00 Temperature Pulse Rate 85 88 92 Respiratory Rate 18 18 Blood Pressure Pulse Oximetry Oxygen Delivery Oxygen Flow Rate 03/26/24 14:37 03/26/24 16:00 03/26/24 19:42 Temperature 98.1 F 98.6 F Pulse Rate 86 90 87 Respiratory Rate 17 18 Blood Pressure 130/67 124/70 Pulse Oximetry 94 90 Oxygen Delivery Oxygen Flow Rate 03/26/24 20:00 03/26/24 20:25 03/26/24 20:25 Temperature Pulse Rate 92 84 Respiratory Rate 20 Blood Pressure Pulse Oximetry 92 Oxygen Delivery Nasal Cannula Oxygen Flow Rate 3 03/26/24 20:38 03/27/24 00:00 03/27/24 00:45 Temperature Pulse Rate 83 87 80 Respiratory Rate 20 20 Blood Pressure Pulse Oximetry Oxygen Delivery Oxygen Flow Rate 03/27/24 00:50 03/27/24 03:47 03/27/24 04:00 Temperature 98.0 F Pulse Rate 81 87 87 Respiratory Rate 20 18 Blood Pressure 134/75 Pulse Oximetry 92 Oxygen Delivery Oxygen Flow Rate 03/27/24 04:53 03/27/24 05:00 03/27/24 08:04 Temperature Pulse Rate 89 87 Respiratory Rate 24 H 24 H Blood Pressure Pulse Oximetry 91 Oxygen Delivery Nasal Cannula Oxygen Flow Rate 4 03/27/24 08:04 03/27/24 08:18 Temperature Pulse Rate 84 88 Respiratory Rate 22 H 22 H Blood Pressure Pulse Oximetry Oxygen Delivery Oxygen Flow Rate Intake/Output Intake/Output: Intake & Output 03/24/24 03/25/24 03/26/24 03/27/24 23:59 23:59 23:59 23:59 Intake Total 4181 1793 1600 1484 Output Total 1300 1400 1700 800 Balance 2881 393 -100 684 Meds/Results Medications: Active Medications Generic Name Dose Route Start Last Admin Trade Name Freq PRN Reason Stop Dose Admin Acetaminophen 650 mg 03/24/24 22:31 03/25/24 14:57 Acetaminophen Elixir 325 Mg/10.15 Ml Udc FEED TUBE 650 mg Q4H PRN Administration Mild Pain (1-3) or Fever Albuterol/Ipratropium 3 ml 03/19/24 16:00 03/27/24 08:03 Ipratropium 0.5 Mg/Albuterol Sulfate 2.5 Mg Ampul.Neb 3 Ml INHALATION 3 ml Q4HRT MIRNA Administration Aspirin 81 mg 03/20/24 09:00 03/27/24 08:08 Aspirin 81 Mg Chewable Tablet FEED TUBE 81 mg DAILY MIRNA Administration Atorvastatin Calcium 20 mg 03/19/24 18:00 03/26/24 17:40 Atorvastatin 20 Mg Tablet FEED TUBE 20 mg QPM MIRNA Administration Bisacodyl 10 mg 03/18/24 22:33 Bisacodyl 10 Mg Suppository RECTAL DAILY PRN Constipation Bisacodyl 10 mg 03/21/24 09:00 03/27/24 08:09 Bisacodyl 10 Mg Suppository RECTAL Not Given QAM MIRNA Chlorhexidine Gluconate 15 ml 03/21/24 09:00 03/27/24 08:10 Chlorhexidine Gluconate 0.12% Oral Rinse 473 Ml Btl (*Bkc) SWISH/SPIT 15 ml BID MIRNA Administration Cyanocobalamin 1,000 mcg 03/19/24 09:00 03/27/24 08:08 Cyanocobalamin 1,000 Mcg Tablet FEED TUBE 1,000 mcg DAILY MIRNA Administration Docusate Sodium 100 mg 03/19/24 09:00 03/27/24 08:09 Docusate Sodium Liq 100 Mg/10 Ml Udc FEED TUBE Not Given Q12HR MIRNA Donepezil HCl 5 mg 03/19/24 21:00 03/26/24 20:15 Donepezil Hcl 5 Mg Tablet PO 5 mg HS MIRNA Administration Doxazosin Mesylate 1 mg 03/19/24 18:00 03/26/24 17:41 Doxazosin Mesylate 1 Mg Tablet FEED TUBE 1 mg QPM MIRNA Administration Fluticasone Propionate 2 spray 03/22/24 11:45 03/27/24 08:09 Fluticasone Propionate 0.05% Na Spr 16 Gm Btl (*Bkc) NASAL 2 spray QAM MIRNA Administration Heparin Sodium (Porcine) 5,000 units 03/19/24 09:00 03/27/24 08:08 Heparin Sodium 5,000 Units/Ml Vial SUB-Q 5,000 units Q12HR MIRNA Administration Hydroxyzine Pamoate 25 mg 03/18/24 22:45 03/27/24 08:08 Hydroxyzine Pamoate 25 Mg Capsule FEED TUBE 25 mg Q12HR MIRNA Administration Meropenem 1 gm in 100 mls @ 200 mls/hr 03/23/24 18:00 03/27/24 09:17 IVPB 150 mls/hr Q8H MIRNA Administration Vancomycin HCl 1,500 mg in 500 mls @ 250 mls/hr 03/27/24 06:00 03/27/24 06:20 Vancomycin 1,500 Mg/Ns 500 Ml IVPB 250 mls/hr Q12H MIRNA Administration Ipratropium [place] 2 spray 03/22/24 13:00 03/27/24 08:09 Ipratropium Nasal [place] 0.03% 15 Ml Bottle NASAL 2 spray TID MIRNA Administration Loratadine 10 mg 03/18/24 22:40 03/24/24 09:04 Loratadine 10 Mg Tablet FEED TUBE 10 mg DAILY PRN Administration Congestion Magnesium Hydroxide 30 ml 03/18/24 22:33 Magnesium Hydroxide Susp 30 Ml Udc FEED TUBE DAILY PRN Constipation Pantoprazole Sodium 40 mg 03/22/24 09:00 03/27/24 08:08 Pantoprazole Sodium Iv 40 Mg Vial IV PUSH 40 mg Q12HR MIRNA Administration Saccharomyces Boulardii 250 mg 03/19/24 09:00 03/27/24 08:08 Saccharomyces Boulardii 250 Mg Capsule FEED TUBE 250 mg BID MIRNA Administration Saliva Substitute 10 ml 03/20/24 13:00 03/27/24 08:10 Saliva Substitute Rinse 473 Ml Bottle PO 10 ml QID MIRNA Administration Timolol Maleate 1 drop 03/20/24 09:50 03/27/24 08:09 Timolol Maleate 0.5% Op Soln 5 Ml Bottle EACH EYE 1 drop Q12HR MIRNA Administration Radiology Results: ITS Impressions Chest CT 03/18/24 17:48 IMPRESSION: 1. Right-sided pneumonia with a posterior and lower lung predominance. 2. Material in the right middle lobe and right lower lobe bronchi, which may be mucous plugging or aspirated material. 3. Moderate emphysema. 4. Mild mediastinal lymphadenopathy, likely reactive. Abdomen Ultrasound 03/21/24 16:41 IMPRESSION: No significant abnormality Chest X-Ray 03/22/24 08:01 IMPRESSION: 1. Airspace opacities in right mid and lower lung zones and left lower lung zone with mild worsening on the left, consistent with pneumonia. Labs Labs: Laboratory Results - last 24 hr 03/26/24 03/26/24 03/26/24 12:15 18:39 23:58 Sodium Potassium Chloride Carbon Dioxide Anion Gap BUN Creatinine Estim Creat Clear Calc Estimated GFR Glucose POC Capillary Glucose 141 H 116 H 123 H Calcium Total Bilirubin AST ALT Alkaline Phosphatase Total Protein Albumin Vancomycin Trough 03/27/24 03/27/24 04:14 05:14 Sodium 137 Potassium 3.5 Chloride 108 H Carbon Dioxide 30 Anion Gap -1 L BUN 16 Creatinine 0.90 Estim Creat Clear Calc 65 Estimated GFR > 60 Glucose 114 H POC Capillary Glucose 125 H Calcium 8.3 L Total Bilirubin 0.4 AST 43 ALT 60 H Alkaline Phosphatase 289 H Total Protein 5.0 L Albumin 2.3 L Vancomycin Trough 9.9 L Quality VTE Prophylaxis VTE prophylaxis: pharmacologic ordered Hospitalist [facility] Advance Care Plan I have confirmed that the patient's Advanced Care Plan is present, code status is documented, or surrogate decision maker is listed in patient medical record.: Yes Medication Reconciliation I have utilized all available resources to obtain, update and review the patients current medications (includes all prescriptions, OTC, herbals, cannabis, and nutritional supplements).: Yes
[2024-03-27 11:50] LABS: Glucose Point of Care 122 mg/dl (65-105)
--- NOTE | 2024-03-27 13:10 | PCNFU ---
Addendum entered by Maria C Gillis, RD, LDN 03/27/24 13:21: Nutrition Follow-Up Complete: Severe Protein Calorie Malnutrition as related to inadequate protein energy intake a evidenced by significant weight loss of 13% (14 ibs) 4 months, severe subcutanoeous fat loss (orbital fat pads) and severe muscle wasting (temporalis, clavicle). Meet estimated nutritional needs - Goal is being met with tube feeding. Continue with goal Goal: Pt current nutrition is Nepro At 50 ml/h goal rate. Flush 200 ml water q 4 hours. Prosource TF supplement once per day for additional 80 kcal and 20 g protein. Nutrition recommendation: No new nutrition recommendations. Continue with current tube feeding orders. Agree with orders Last recorded weight is 81.7 kg. Not sure if this weight is correct as pt was 62. kg at admission Bowel Motility: +1 BM 03/27 Labs Reviewed: Alb 2.3, Glu 114 Meds Noted: Protonix, meropenem Skin: Stage 1 to hip Additional Notes: tolerating tube feeding. Nepro @ 50 ml/h provides 1980 kcal, 89 g protein, 800 ml free water. Prosource TF supplement once per day, 2060 total kcal, 109 g total protein. 200 ml flushes q 4 hours for 2000 ml total free water/day. Meeting estimated needs at 100% EER, 100% estimated protein needs. Agree with current orders. Will monitor weight, labs, skin, meds, tube feedings every Saturday and Saturday. Original Note: Nutrition Follow-Up Complete: Severe Protein Calorie Malnutrition as related to inadequate protein energy intake a evidenced by significant weight loss of 13% (14 ibs) 4 months, severe subcutanoeous fat loss (orbital fat pads) and severe muscle wasting (temporalis, clavicle). Meet estimated nutritional needs - Goal is being met with tube feeding. Continue with goal Goal: Pt current nutrition is Nepro At 50 ml/h goal rate. Flush 200 ml water q 4 hours. Prosource TF supplement once per day for additional 80 kcal and 20 g protein. Nutrition recommendation: No new nutrition recommendations. Continue with current tube feeding orders. Agree with orders Last recorded weight is 81.7 kg. Not sure if this weight is correct as pt was 62. kg at admission Bowel Motility: +1 BM 03/27 Labs Reviewed: Alb 2.3, Glu 114 Meds Noted: Protonix, meropenem Skin: Stage 1 to hip Additional Notes: tolerating tube feeding. Nepro @ 50 ml/h provides 1980 kcal, 89 g protein, 800 ml free water.. 200 ml flushes q 4 hours for 2000 ml total free water/day. Meeting estimated needs at 100% EER, 1 g protein/kg. Agree with current orders. Will monitor weight, labs, skin, meds, tube feedings every Saturday and Saturday.
[2024-03-27] MEDS: DOXAZOSIN MESYLATE 1 MG TABLET FEED TUBE (17:14)
[2024-03-27] MEDS: ATORVASTATIN 20 MG TABLET FEED TUBE (17:14)
[2024-03-27] MEDS: VANCOMYCIN 1,500 MG/NS 500 ML 1,500 MG/500 ML BAG 150 MG IVPB (18:03)
[2024-03-27 18:16] LABS: Glucose Point of Care 121 mg/dl (65-105)
[2024-03-27] MEDS: DOCUSATE SODIUM LIQ 100 MG/10 ML UDC FEED TUBE (20:22)
[2024-03-27] MEDS: DONEPEZIL HCL 5 MG TABLET PO (20:22)
[2024-03-28] VITALS (25 sets, daily range): BP systolic 121–136; BP diastolic 69–76; PULSE 74–90; RESP 16–24; TEMP 37.3–38.3; O2SAT 88–96
[2024-03-28 00:27] LABS: Glucose Point of Care 132 mg/dl (65-105)
[2024-03-28] MEDS: MEROPENEM 1 GM/NS 100 ML BAG IVPB ×3 (01:49→17:06)
--- NOTE | 2024-03-28 02:28 | PCRCNOTE ---
Window of time for administration has passed. See next scheduled administration.
[2024-03-28] MEDS: IPRATROPIUM 0.5 MG/ALBUTEROL SULFATE 2.5 MG AMPUL.NEB 3 ML INHALATION ×6 (04:09→23:54)
[2024-03-28] MEDS: VANCOMYCIN 1,500 MG/NS 500 ML 1,500 MG/500 ML BAG 200 MG IVPB ×2 (05:14→18:03)
[2024-03-28 05:26] LABS: Alanine Aminotransferase 65 U/L (6-50); Albumin Level 2.3 g/dL (3.5-5.1); Alkaline Phosphatase 259 U/L (38-126); Anion Gap 0 mmol/L (4-12); Aspartate Amino Transferase 54 U/L (17-59); Bilirubin,Total 0.4 mg/dL (0.2-1.3); Blood Urea Nitrogen 16 mg/dL (9-20); Calcium 8.2 mg/dL (8.4-10.2); Carbon Dioxide 29 mmol/L (22-30); Chloride 108 mmol/L (98-107); Estimated CRCL calculation 82 ml/min; Estimated Glomerular Filt Rate > 60; Glucose 119 mg/dL (65-110); Potassium 3.3 mmol/L (3.4-5.0); Sodium 137 mmol/L (137-145)
[2024-03-28 06:54] LABS: Glucose Point of Care 119 mg/dl (65-105)
[2024-03-28 07:55] LABS: Basophils Percent Auto 0.5 % (0.2-1.2); Eosinophils Absolute Auto 0.2 K/mm3 (0-0.3); Eosinophils Percent Auto 2.4 % (0-4.4); Hematocrit 30.9 % (42.0-52.0); Hemoglobin 10.2 g/dL (14.0-18.0); Immature Granulocyte Absolute 0.04 K/mm3 (0.00-0.031); Immature Granulocyte Percent A 0.5 % (0-0.5); Lymphocytes Absolute Auto 0.64 K/mm3 (0.9-3.2); Lymphocytes Percent Auto 7.8 % (18.3-44.2); Mean Corpuscular Hemoglobin 30.5 pg (26-34); Mean Corpuscular Volume 92.5 fl (80-100); Mean Platelet Volume 10.8 fl (7.4-10.4); Monocytes Absolute Auto 0.5 K/mm3 (0.1-0.6); Monocytes Percent Auto 5.5 % (2.6-8.5); Neutrophils Absolute Auto 6.8 K/mm3 (1.3-6.7); Neutrophils Percent Auto 83.3 % (45.5-73.1); Platelet Count Result 276 k/mm3 (150-375); Red Blood Count 3.34 M/mm3 (4.6-6.20); Red Cell Distribution Width 13.8 % (11.5-14.5); White Blood Count 8.2 K/mm3 (4.5-10.0)
[2024-03-28] MEDS: CYANOCOBALAMIN 1,000 MCG TABLET 1000 MCG FEED TUBE (10:57)
[2024-03-28] MEDS: hydrOXYzine pamoate 25 MG CAPSULE FEED TUBE ×2 (10:57→21:33)
[2024-03-28] MEDS: ASPIRIN 81 MG CHEWABLE TABLET FEED TUBE (10:57)
[2024-03-28] MEDS: SACCHAROMYCES BOULARDII 250 MG CAPSULE FEED TUBE ×2 (10:58→17:05)
[2024-03-28] MEDS: PANTOPRAZOLE SODIUM IV 40 MG VIAL IV PUSH ×2 (10:58→21:33)
[2024-03-28] MEDS: HEPARIN SODIUM 5,000 UNITS/ML VIAL 5000 UNITS SUB-Q ×2 (10:59→21:33)
[2024-03-28] MEDS: DOCUSATE SODIUM LIQ 100 MG/10 ML UDC FEED TUBE ×2 (10:59→21:33)
[2024-03-28] MEDS: BISACODYL 10 MG SUPPOSITORY RECTAL (11:00)
[2024-03-28] MEDS: IPRATROPIUM NASAL SPRAY 0.03% 15 ML BOTTLE 2 SPRAY NASAL ×2 (11:01→17:05)
[2024-03-28] MEDS: FLUTICASONE PROPIONATE 0.05% NA SPR 16 GM BTL (*BKC) 2 SPRAY NASAL (11:01)
[2024-03-28] MEDS: SALIVA SUBSTITUTE RINSE 473 ML BOTTLE 10 ML PO ×3 (11:02→21:34)
[2024-03-28] MEDS: CHLORHEXIDINE GLUCONATE 0.12% ORAL RINSE 473 ML BTL (*BKC) 15 ML SWISH/SPIT ×2 (11:02→17:05)
[2024-03-28] MEDS: TIMOLOL MALEATE 0.5% OP SOLN 5 ML BOTTLE 1 DROP EACH EYE ×2 (11:02→21:34)
[2024-03-28 11:47] LABS: Glucose Point of Care 116 mg/dl (65-105)
--- NOTE | 2024-03-28 14:23 | P.PNIM_ITS ---
Progress Note: A&P Assessment and Plan (1) Sepsis: Qualifiers: Sepsis type: sepsis due to unspecified organism Sepsis acute organ dysfunction status: with acute organ dysfunction Severe sepsis acute organ dysfunction type: acute respiratory failure Acute respiratory failure type: with hypoxia Severe sepsis shock status: without septic shock Qualified Code(s): A41.9 - Sepsis, unspecified organism; R65.20 - Severe sepsis without septic shock; J96.01 - Acute respiratory failure with hypoxia Code(s): A41.9 - Sepsis, unspecified organism Status: Resolved Assessment and Plan: Sepsis Low grade temp Patient met sepsis criteria on admission with tachycardia, tachypnea, hypotenision, CXR consistent with PNA, a failure. -- Blood cultures NGTD. -- Max Temp 100.5 on 03/28. -- BCX2- NGTD, -- Urine culture negative, -- WBC wnl. -- Currently on Meropenem and Vancomycin IV. -- Continue current treatment pending CXR. -- We'll consider de-escalating abx pending CXR. (2) Aspiration pneumonia: Qualifiers: Aspiration pneumonia type: unspecified Laterality: right Lung location: unspecified part of lung Qualified Code(s): J69.0 - Pneumonitis due to inhalation of food and vomit Code(s): J69.0 - Pneumonitis due to inhalation of food and vomit Status: Acute Assessment and Plan: Treating aspiration pneumonia. Had an episode of emesis 03/22 Chest x-ray Airspace opacities in right mid and lower lung zones and left lower lung zone with mild worsening on the left, consistent with pneumonia --Previously on Unasyn, now on Meropenem and Vancomycin. -- Continue oral suctioning PRN. -- Continue aspiration precautions. -- Other mgt as # 1 above. (3) Acute hypoxemic respiratory failure: Code(s): J96.01 - Acute respiratory failure with hypoxia Status: Acute Assessment and Plan: Acute hypoxic respiratory failure Aspiration pneumonia --Currently on Meropenem and Vancomycin. MRSA PCR negative. --Worsening infiltrates on chest x-ray and fevers. --Repeat CXR pending. - Seen by Pulmonary and recommendations noted. --Aspiration precautions, elevate HOB. --NPO. Artificial saliva, frequent oral care. Continue peridex --Continue suctioning prn --Continue flonase and ipatropium nasal spray. (4) COPD (chronic obstructive pulmonary disease): Qualifiers: COPD type: COPD with acute lower respiratory infection Qualified Code(s): J44.0 - Chronic obstructive pulmonary disease with (acute) lower respiratory infection Code(s): J44.9 - Chronic obstructive pulmonary disease, unspecified Status: Acute Assessment and Plan: * COPD * Seen by Pulmonary and recommendations noted. * Continue scheduled duonebs. * Continue supplemental O2 for now, now on 2L/NC. * Appears compensated currently. (5) AMS (altered mental status): Qualifiers: Altered mental status type: unspecified Qualified Code(s): R41.82 - Altered mental status, unspecified Code(s): R41.82 - Altered mental status, unspecified Status: Chronic Assessment and Plan: Seems at baseline. Hx dementia (6) Transaminitis: Code(s): R74.01 - Elevation of levels of liver transaminase levels Status: Chronic Assessment and Plan: Transaminitis * Chronic and trending down. * Possibly related to infection. 03/21 US abdomen no gallstones or gallbladder wall thickening --Continue to follow trend. (7) Dementia: Qualifiers: Dementia type: unspecified type Dementia severity: severe Dementia behavioral or psychological symptom: unspecified whether behavioral, psychotic, or mood disturbance or anxiety Qualified Code(s): F03.C0 - Unspecified dementia, severe, without behavioral disturbance, psychotic disturbance, mood disturbance, and anxiety Code(s): F03.90 - Unspecified dementia, unspecified severity, without behavioral disturbance, psychotic disturbance, mood disturbance, and anxiety Status: Chronic Assessment and Plan: Dementia Hx G-tube, malnutrition. Receiving tube feeds and tolerating well. Supportive care. Turn q2. Respiratory failure possibly related to dementia and inability to clear secretions due to altered mental status (8) Anemia: Code(s): D64.9 - Anemia, unspecified Status: Acute Assessment and Plan: --Hgb currently appears stable. --Seen by GI. -- Had EGD x2 last few months when G-tube was placed without major findings. -- No need to repeat endoscopic evaluation, anemia probably multifactorial per GI. (9) Hypokalemia: Code(s): E87.6 - Hypokalemia Status: Acute Assessment and Plan: * Continue to replete as needed. Plan Time Spent With Patient Time with patient: 15 - 25 minutes Subjective Date/time seen: 03/28/24 14:23 Patient sitting up on bed. Patient non-verbal. Interval history: Patient on bedrest and looks to be in no acute distress. Review of Systems Review of Systems: All systems reviewed & are unremarkable except as noted in HPI and below ROS unobtainable: Yes unobtainable due to medical condition (Dementia), unobtainable due to mental status and other (Patient non-verbal) Exam Narrative: CONSTITUTIONAL: Nonverbal, calm sitting up on bedrest. HENMT: Atraumatic and normocephalic. Poor oral hygiene. Dry MM. NECK: Limited range of motion RESPIRATORY: Coarse to BLL, congested, Poor inspiratory effort. CARDIO: RRR, no murmurs. GI: Soft, NT, BS present x4 quads without any distention. : Incontinent. SKIN: Stage 1 wound x2 to the right hip. Dressing in place. Small skin tear also to right upper thigh posteriorly. NEURO: Hung LE weakness. Objective Data Vital Signs Vital Signs: Vital Signs - 24 hr 03/27/24 15:43 03/27/24 15:51 03/27/24 16:00 Temperature Pulse Rate 80 78 82 Respiratory Rate 20 20 Blood Pressure Pulse Oximetry Oxygen Delivery Oxygen Flow Rate 03/27/24 19:51 03/27/24 20:00 03/27/24 20:12 Temperature 97.6 F Pulse Rate 96 84 85 Respiratory Rate 22 H 20 Blood Pressure 148/75 H Pulse Oximetry 100 Oxygen Delivery Oxygen Flow Rate 03/27/24 20:12 03/27/24 20:22 03/28/24 00:00 Temperature Pulse Rate 81 75 Respiratory Rate 20 Blood Pressure Pulse Oximetry 91 Oxygen Delivery Nasal Cannula Oxygen Flow Rate 4 03/28/24 04:00 03/28/24 04:09 03/28/24 04:15 Temperature Pulse Rate 82 79 80 Respiratory Rate 24 H 24 H Blood Pressure Pulse Oximetry Oxygen Delivery Oxygen Flow Rate 03/28/24 05:18 03/28/24 06:30 03/28/24 07:05 Temperature 100.5 F H 99.2 F Pulse Rate 80 Respiratory Rate 22 H Blood Pressure 136/76 Pulse Oximetry 96 93 Oxygen Delivery Nasal Cannula Oxygen Flow Rate 4 03/28/24 07:06 03/28/24 07:17 03/28/24 08:00 Temperature Pulse Rate 78 75 81 Respiratory Rate 20 20 Blood Pressure Pulse Oximetry Oxygen Delivery Oxygen Flow Rate 03/28/24 11:00 03/28/24 11:07 03/28/24 11:51 Temperature Pulse Rate 85 81 Respiratory Rate 20 20 Blood Pressure Pulse Oximetry 93 Oxygen Delivery Nasal Cannula Oxygen Flow Rate 4 Intake/Output Intake/Output: Intake & Output 03/25/24 03/26/24 03/27/24 03/28/24 23:59 23:59 23:59 23:59 Intake Total 1793 1600 2684 1378 Output Total 1400 1700 2200 1900 Balance 393 -100 484 -522 Meds/Results Medications: Active Medications Generic Name Dose Route Start Last Admin Trade Name Freq PRN Reason Stop Dose Admin Acetaminophen 650 mg 03/24/24 22:31 03/25/24 14:57 Acetaminophen Elixir 325 Mg/10.15 Ml Udc FEED TUBE 650 mg Q4H PRN Administration Mild Pain (1-3) or Fever Albuterol/Ipratropium 3 ml 03/19/24 16:00 03/28/24 10:59 Ipratropium 0.5 Mg/Albuterol Sulfate 2.5 Mg Ampul.Neb 3 Ml INHALATION 3 ml Q4HRT MIRNA Administration Aspirin 81 mg 03/20/24 09:00 03/28/24 10:57 Aspirin 81 Mg Chewable Tablet FEED TUBE 81 mg DAILY MIRNA Administration Atorvastatin Calcium 20 mg 03/19/24 18:00 03/27/24 17:14 Atorvastatin 20 Mg Tablet FEED TUBE 20 mg QPM MIRNA Administration Bisacodyl 10 mg 03/18/24 22:33 Bisacodyl 10 Mg Suppository RECTAL DAILY PRN Constipation Bisacodyl 10 mg 03/21/24 09:00 03/28/24 11:00 Bisacodyl 10 Mg Suppository RECTAL 10 mg QAM MIRNA Administration Chlorhexidine Gluconate 15 ml 03/21/24 09:00 03/28/24 11:02 Chlorhexidine Gluconate 0.12% Oral Rinse 473 Ml Btl (*Bkc) SWISH/SPIT 15 ml BID MIRNA Administration Cyanocobalamin 1,000 mcg 03/19/24 09:00 03/28/24 10:57 Cyanocobalamin 1,000 Mcg Tablet FEED TUBE 1,000 mcg DAILY MIRNA Administration Docusate Sodium 100 mg 03/19/24 09:00 03/28/24 10:59 Docusate Sodium Liq 100 Mg/10 Ml Udc FEED TUBE 100 mg Q12HR MIRNA Administration Donepezil HCl 5 mg 03/19/24 21:00 03/27/24 20:22 Donepezil Hcl 5 Mg Tablet PO 5 mg HS MIRNA Administration Doxazosin Mesylate 1 mg 03/19/24 18:00 03/27/24 17:14 Doxazosin Mesylate 1 Mg Tablet FEED TUBE 1 mg QPM MIRNA Administration Fluticasone Propionate 2 spray 03/22/24 11:45 03/28/24 11:01 Fluticasone Propionate 0.05% Na Spr 16 Gm Btl (*Bkc) NASAL 2 spray QAM MIRNA Administration Heparin Sodium (Porcine) 5,000 units 03/19/24 09:00 03/28/24 10:59 Heparin Sodium 5,000 Units/Ml Vial SUB-Q 5,000 units Q12HR MIRNA Administration Hydroxyzine Pamoate 25 mg 03/18/24 22:45 03/28/24 10:57 Hydroxyzine Pamoate 25 Mg Capsule FEED TUBE 25 mg Q12HR MIRNA Administration Meropenem 1 gm in 100 mls @ 200 mls/hr 03/23/24 18:00 03/28/24 11:00 IVPB 200 mls/hr Q8H MIRNA Administration Vancomycin HCl 1,500 mg in 500 mls @ 250 mls/hr 03/27/24 06:00 03/28/24 05:14 Vancomycin 1,500 Mg/Ns 500 Ml IVPB 200 mls/hr Q12H MIRNA Administration Ipratropium [place] 2 spray 03/22/24 13:00 03/28/24 11:01 Ipratropium Nasal [place] 0.03% 15 Ml Bottle NASAL 2 spray TID MIRNA Administration Loratadine 10 mg 03/18/24 22:40 03/24/24 09:04 Loratadine 10 Mg Tablet FEED TUBE 10 mg DAILY PRN Administration Congestion Magnesium Hydroxide 30 ml 03/18/24 22:33 Magnesium Hydroxide Susp 30 Ml Udc FEED TUBE DAILY PRN Constipation Pantoprazole Sodium 40 mg 03/22/24 09:00 03/28/24 10:58 Pantoprazole Sodium Iv 40 Mg Vial IV PUSH 40 mg Q12HR MIRNA Administration Saccharomyces Boulardii 250 mg 03/19/24 09:00 03/28/24 10:58 Saccharomyces Boulardii 250 Mg Capsule FEED TUBE 250 mg BID MIRNA Administration Saliva Substitute 10 ml 03/20/24 13:00 03/28/24 11:02 Saliva Substitute Rinse 473 Ml Bottle PO 10 ml QID MIRNA Administration Timolol Maleate 1 drop 03/20/24 09:50 03/28/24 11:02 Timolol Maleate 0.5% Op Soln 5 Ml Bottle EACH EYE 1 drop Q12HR MIRNA Administration Radiology Results: ITS Impressions Chest CT 03/18/24 17:48 IMPRESSION: 1. Right-sided pneumonia with a posterior and lower lung predominance. 2. Material in the right middle lobe and right lower lobe bronchi, which may be mucous plugging or aspirated material. 3. Moderate emphysema. 4. Mild mediastinal lymphadenopathy, likely reactive. Abdomen Ultrasound 03/21/24 16:41 IMPRESSION: No significant abnormality Chest X-Ray 03/22/24 08:01 IMPRESSION: 1. Airspace opacities in right mid and lower lung zones and left lower lung zone with mild worsening on the left, consistent with pneumonia. Labs Labs: Laboratory Results - last 24 hr 03/27/24 03/28/24 03/28/24 18:14 00:15 03:58 WBC 8.2 RBC 3.34 L Hgb 10.2 L Hct 30.9 L MCV 92.5 MCH 30.5 MCHC 33.0 RDW 13.8 Plt Count 276 MPV 10.8 H Immature Gran % (Auto) 0.5 Neut % (Auto) 83.3 H Lymph % (Auto) 7.8 L [place] % (Auto) 5.5 Eos % (Auto) 2.4 Baso % (Auto) 0.5 Lymph # (Auto) 0.64 L [place] # (Auto) 0.5 Eos # (Auto) 0.2 Baso # (Auto) 0.0 Abs Immat Gran (auto) 0.04 H Absolute Neuts (auto) 6.8 H Absolute Nucleated RBC 0.000 Nucleated RBC % 0.0 Sodium Potassium Chloride Carbon Dioxide Anion Gap BUN Creatinine Estim Creat Clear Calc Estimated GFR Glucose POC Capillary Glucose 121 H 132 H Calcium Total Bilirubin AST ALT Alkaline Phosphatase Total Protein Albumin 03/28/24 03/28/24 03/28/24 04:03 05:20 11:41 WBC RBC Hgb Hct MCV MCH MCHC RDW Plt Count MPV Immature Gran % (Auto) Neut % (Auto) Lymph % (Auto) [place] % (Auto) Eos % (Auto) Baso % (Auto) Lymph # (Auto) [place] # (Auto) Eos # (Auto) Baso # (Auto) Abs Immat Gran (auto) Absolute Neuts (auto) Absolute Nucleated RBC Nucleated RBC % Sodium 137 Potassium 3.3 L Chloride 108 H Carbon Dioxide 29 Anion Gap 0 L BUN 16 Creatinine 0.70 Estim Creat Clear Calc 82 Estimated GFR > 60 Glucose 119 H POC Capillary Glucose 119 H 116 H Calcium 8.2 L Total Bilirubin 0.4 AST 54 ALT 65 H Alkaline Phosphatase 259 H Total Protein 5.0 L Albumin 2.3 L Quality VTE Prophylaxis VTE prophylaxis: pharmacologic ordered Hospitalist [facility] Advance Care Plan I have confirmed that the patient's Advanced Care Plan is present, code status is documented, or surrogate decision maker is listed in patient medical record.: Yes Medication Reconciliation I have utilized all available resources to obtain, update and review the patients current medications (includes all prescriptions, OTC, herbals, cannabis, and nutritional supplements).: Yes
[2024-03-28] MEDS: ACETAMINOPHEN ELIXIR 325 MG/10.15 ML UDC 650 MG FEED TUBE (17:04)
[2024-03-28] MEDS: DOXAZOSIN MESYLATE 1 MG TABLET FEED TUBE (17:06)
[2024-03-28] MEDS: ATORVASTATIN 20 MG TABLET FEED TUBE (17:06)
[2024-03-28 17:32] LABS: Vancomycin Trough 16.6 ug/mL (10.0-20.0)
[2024-03-28 18:04] LABS: Glucose Point of Care 125 mg/dl (65-105)
[2024-03-28] MEDS: DONEPEZIL HCL 5 MG TABLET PO (21:33)
[2024-03-28 23:45] LABS: Glucose Point of Care 111 mg/dl (65-105)
[2024-03-29] VITALS (20 sets, daily range): BP systolic 134–161; BP diastolic 71–89; PULSE 76–110; RESP 18–26; TEMP 36.7–37.4; O2SAT 89–96
[2024-03-29] MEDS: MEROPENEM 1 GM/NS 100 ML BAG IVPB ×3 (02:30→17:18)
[2024-03-29 05:04] LABS: Basophils Percent Auto 0.3 % (0.2-1.2); Eosinophils Absolute Auto 0.2 K/mm3 (0-0.3); Eosinophils Percent Auto 1.9 % (0-4.4); Hematocrit 31.6 % (42.0-52.0); Hemoglobin 10.3 g/dL (14.0-18.0); Immature Granulocyte Absolute 0.05 K/mm3 (0.00-0.031); Immature Granulocyte Percent A 0.5 % (0-0.5); Lymphocytes Percent Auto 7.1 % (18.3-44.2); Mean Corpuscular HGB Conc 32.6 g/dl (32-36); Mean Corpuscular Hemoglobin 30.3 pg (26-34); Mean Corpuscular Volume 92.9 fl (80-100); Mean Platelet Volume 10.8 fl (7.4-10.4); Monocytes Absolute Auto 0.5 K/mm3 (0.1-0.6); Monocytes Percent Auto 5.1 % (2.6-8.5); Neutrophils Absolute Auto 8.4 K/mm3 (1.3-6.7); Neutrophils Percent Auto 85.1 % (45.5-73.1); Platelet Count Result 350 k/mm3 (150-375); Red Cell Distribution Width 13.3 % (11.5-14.5); White Blood Count 9.9 K/mm3 (4.5-10.0)
[2024-03-29 05:10] LABS: Alanine Aminotransferase 65 U/L (6-50); Albumin Level 2.4 g/dL (3.5-5.1); Alkaline Phosphatase 258 U/L (38-126); Anion Gap -1 mmol/L (4-12); Aspartate Amino Transferase 44 U/L (17-59); Bilirubin,Total 0.5 mg/dL (0.2-1.3); Blood Urea Nitrogen 15 mg/dL (9-20); Calcium 8.3 mg/dL (8.4-10.2); Carbon Dioxide 30 mmol/L (22-30); Chloride 108 mmol/L (98-107); Estimated CRCL calculation 82 ml/min; Estimated Glomerular Filt Rate > 60; Glucose 123 mg/dL (65-110); Potassium 3.4 mmol/L (3.4-5.0); Sodium 137 mmol/L (137-145)
[2024-03-29] MEDS: VANCOMYCIN 1,500 MG/NS 500 ML 1,500 MG/500 ML BAG 250 MG IVPB ×2 (05:47→17:48)
--- NOTE | 2024-03-29 05:56 | PCRCNOTE ---
Out of timeframe to give patients 0400 breathing treatment. See next administration at 0800
[2024-03-29 06:45] LABS: Glucose Point of Care 145 mg/dl (65-105)
[2024-03-29] MEDS: IPRATROPIUM 0.5 MG/ALBUTEROL SULFATE 2.5 MG AMPUL.NEB 3 ML INHALATION ×4 (06:59→20:01)
--- NOTE | 2024-03-29 08:56 | PM.IMPN ---
Progress Note: A&P Assessment and Plan (1) Sepsis: Qualifiers: Sepsis type: sepsis due to unspecified organism Sepsis acute organ dysfunction status: with acute organ dysfunction Severe sepsis acute organ dysfunction type: acute respiratory failure Acute respiratory failure type: with hypoxia Severe sepsis shock status: without septic shock Qualified Code(s): A41.9 - Sepsis, unspecified organism; R65.20 - Severe sepsis without septic shock; J96.01 - Acute respiratory failure with hypoxia Code(s): A41.9 - Sepsis, unspecified organism Status: Resolved Assessment and Plan: Sepsis Low grade temp Patient met sepsis criteria on admission with tachycardia, tachypnea, hypotenision, CXR consistent with PNA, a failure. -- Repeat CXR 03/28: Bilateral pneumonia. Underlying pulmonary edema and fibrotic changes are not excluded -- Blood cultures NGTD. -- Fever episodes yesterday; 100.4>>101. -- BCX2- NGTD, -- Urine culture negative, -- WBC's now elevated. -- Currently on Meropenem and Vancomycin IV. -- Senior Portfolio Analyst consulted again. -- Continue current abx treatment. (2) Aspiration pneumonia: Qualifiers: Aspiration pneumonia type: unspecified Laterality: right Lung location: unspecified part of lung Qualified Code(s): J69.0 - Pneumonitis due to inhalation of food and vomit Code(s): J69.0 - Pneumonitis due to inhalation of food and vomit Status: Acute Assessment and Plan: Treating aspiration pneumonia. Had an episode of emesis on presentation. 03/22 Chest x-ray Airspace opacities in right mid and lower lung zones and left lower lung zone with mild worsening on the left, consistent with pneumonia. -- Repeat CXR; Bilateral pneumonia. Underlying pulmonary edema and fibrotic changes are not excluded. --Previously on Unasyn, now on Meropenem and Vancomycin. -- Continue oral suctioning PRN. -- Continue aspiration precautions. -- Other mgt as # 1 above. (3) Acute hypoxemic respiratory failure: Code(s): J96.01 - Acute respiratory failure with hypoxia Status: Acute Assessment and Plan: Acute hypoxic respiratory failure Aspiration pneumonia --Currently on Meropenem and Vancomycin. MRSA PCR negative. --Worsening infiltrates on chest x-ray and fevers. --Repeat CXR 03/28; Bilateral pneumonia. Underlying pulmonary edema and fibrotic changes are not excluded. -- Likely due to inability to cough up secretions. -- Now on 5L/NC for sats >> 90 %. -- Pulmonary re-consulted. --Aspiration precautions, elevate HOB. --NPO. Artificial saliva, frequent oral care. Continue peridex --Continue suctioning prn --Continue flonase and ipatropium nasal spray. (4) COPD (chronic obstructive pulmonary disease): Qualifiers: COPD type: COPD with acute lower respiratory infection Qualified Code(s): J44.0 - Chronic obstructive pulmonary disease with (acute) lower respiratory infection Code(s): J44.9 - Chronic obstructive pulmonary disease, unspecified Status: Acute Assessment and Plan: COPD. Appears compensated. Continue scheduled duonebs. Continue supplemental O2 for now, now on 5L/NC. (5) AMS (altered mental status): Qualifiers: Altered mental status type: unspecified Qualified Code(s): R41.82 - Altered mental status, unspecified Code(s): R41.82 - Altered mental status, unspecified Status: Chronic Assessment and Plan: Seems at baseline. Hx dementia (6) Transaminitis: Code(s): R74.01 - Elevation of levels of liver transaminase levels Status: Chronic Assessment and Plan: Transaminitis Chronic and trending down. Possibly related to infection. 03/21 US abdomen no gallstones or gallbladder wall thickening -- No further w/u for now. (7) Dementia: Qualifiers: Dementia type: unspecified type Dementia severity: severe Dementia behavioral or psychological symptom: unspecified whether behavioral, psychotic, or mood disturbance or anxiety Qualified Code(s): F03.C0 - Unspecified dementia, severe, without behavioral disturbance, psychotic disturbance, mood disturbance, and anxiety Code(s): F03.90 - Unspecified dementia, unspecified severity, without behavioral disturbance, psychotic disturbance, mood disturbance, and anxiety Status: Chronic Assessment and Plan: Dementia Pt with G-tube secondary to malnutrition. Appears to be tolerating tube feeds well. Continue supportive care. Turn q2. Respiratory failure likely related to dementia, with inability to clear secretions. (8) Anemia: Code(s): D64.9 - Anemia, unspecified Status: Acute Assessment and Plan: --Hgb appears stable. --Seen by GI. -- Had EGD x2 last few months when G-tube was placed without major findings. -- No need to repeat endoscopic evaluation, anemia probably multifactorial per GI. (9) Hypokalemia: Code(s): E87.6 - Hypokalemia Status: Acute Assessment and Plan: Continue to replete as needed. Plan Time Spent With Patient Time with patient: 25 - 35 minutes Subjective Date/time seen: 03/29/24 08:56 Patient non-verbal Interval history: Patient on bedrest with bed elevated, looks to be in some slight respiratory distress with congestion and intermittent small cough episodes. Review of Systems Review of Systems: ROS unobtainable: Yes unobtainable due to medical condition (Dementia), unobtainable due to mental status and other (Patient non-verbal) Exam Narrative: CONSTITUTIONAL: Nonverbal, sitting up on bedrest with intermittent shallow coughs. HENMT: Atraumatic and normocephalic. Poor oral hygiene. Dry MM. NECK: Limited range of motion RESPIRATORY: Coarse to BLL, congested, shallow coughs with poor inspiratory effort. CARDIO: RRR, no murmurs. GI: Soft, NT, BS present x4 quads without any distention, PEG-Tube intact. : Incontinent. SKIN: Stage 1 wound x2 to the right hip. Dressing in place. Small skin tear also to right upper thigh posteriorly. NEURO: Hung LE weakness. Objective Data Vital Signs Vital Signs: Vital Signs - 24 hr 03/28/24 11:00 03/28/24 11:07 03/28/24 11:51 Temperature Pulse Rate 85 81 Respiratory Rate 20 20 Blood Pressure Pulse Oximetry 93 Oxygen Delivery Nasal Cannula Oxygen Flow Rate 4 Fraction of Inspired Oxygen 03/28/24 12:00 03/28/24 14:00 03/28/24 15:14 Temperature 100.4 F H Pulse Rate 76 84 80 Respiratory Rate 16 20 Blood Pressure 127/69 Pulse Oximetry 90 Oxygen Delivery Oxygen Flow Rate Fraction of Inspired Oxygen 03/28/24 15:21 03/28/24 16:00 03/28/24 17:04 Temperature 101 F H Pulse Rate 76 90 Respiratory Rate 20 Blood Pressure Pulse Oximetry Oxygen Delivery Oxygen Flow Rate Fraction of Inspired Oxygen 03/28/24 18:04 03/28/24 19:29 03/28/24 19:54 Temperature 100.2 F H 99.2 F Pulse Rate 80 74 Respiratory Rate 22 H 20 Blood Pressure 121/69 Pulse Oximetry 95 Oxygen Delivery Oxygen Flow Rate Fraction of Inspired Oxygen 03/28/24 19:55 03/28/24 20:00 03/28/24 20:00 Temperature Pulse Rate 78 Respiratory Rate 20 Blood Pressure Pulse Oximetry 88 L 95 Oxygen Delivery Nasal Cannula Nasal Cannula Oxygen Flow Rate 4 4.5 Fraction of Inspired Oxygen 03/28/24 20:00 03/28/24 20:00 03/28/24 23:54 Temperature Pulse Rate 77 77 77 Respiratory Rate 16 20 Blood Pressure Pulse Oximetry 95 Oxygen Delivery Nasal Cannula Oxygen Flow Rate 4 Fraction of Inspired Oxygen 21 03/29/24 00:00 03/29/24 00:00 03/29/24 04:00 Temperature Pulse Rate 78 76 94 Respiratory Rate 20 Blood Pressure Pulse Oximetry Oxygen Delivery Oxygen Flow Rate Fraction of Inspired Oxygen 03/29/24 06:12 03/29/24 06:59 03/29/24 06:59 Temperature 99.3 F Pulse Rate 91 90 Respiratory Rate 20 20 Blood Pressure 161/89 H Pulse Oximetry 96 93 Oxygen Delivery Nasal Cannula Oxygen Flow Rate 5 Fraction of Inspired Oxygen 03/29/24 07:06 Temperature Pulse Rate 92 Respiratory Rate 20 Blood Pressure Pulse Oximetry Oxygen Delivery Oxygen Flow Rate Fraction of Inspired Oxygen Intake/Output Intake/Output: Intake & Output 03/26/24 03/27/24 03/28/24 03/29/24 23:59 23:59 23:59 23:59 Intake Total 1600 2684 3588 1075 Output Total 1700 2200 2950 1000 Balance -100 484 638 75 Meds/Results Medications: Active Medications Generic Name Dose Route Start Last Admin Trade Name Freq PRN Reason Stop Dose Admin Acetaminophen 650 mg 03/24/24 22:31 03/28/24 17:04 Acetaminophen Elixir 325 Mg/10.15 Ml Udc FEED TUBE 650 mg Q4H PRN Administration Mild Pain (1-3) or Fever Albuterol/Ipratropium 3 ml 03/19/24 16:00 03/29/24 07:01 Ipratropium 0.5 Mg/Albuterol Sulfate 2.5 Mg Ampul.Neb 3 Ml INHALATION Not Given Q4HRT [facility] Aspirin 81 mg 03/20/24 09:00 03/28/24 10:57 Aspirin 81 Mg Chewable Tablet FEED TUBE 81 mg DAILY MIRNA Administration Atorvastatin Calcium 20 mg 03/19/24 18:00 03/28/24 17:06 Atorvastatin 20 Mg Tablet FEED TUBE 20 mg QPM MIRNA Administration Bisacodyl 10 mg 03/18/24 22:33 Bisacodyl 10 Mg Suppository RECTAL DAILY PRN Constipation Bisacodyl 10 mg 03/21/24 09:00 03/29/24 08:25 Bisacodyl 10 Mg Suppository RECTAL Not Given QAM MIRNA Chlorhexidine Gluconate 15 ml 03/21/24 09:00 03/28/24 17:05 Chlorhexidine Gluconate 0.12% Oral Rinse 473 Ml Btl (*Bkc) SWISH/SPIT 15 ml BID MIRNA Administration Cyanocobalamin 1,000 mcg 03/19/24 09:00 03/28/24 10:57 Cyanocobalamin 1,000 Mcg Tablet FEED TUBE 1,000 mcg DAILY MIRNA Administration Docusate Sodium 100 mg 03/19/24 09:00 03/28/24 21:33 Docusate Sodium Liq 100 Mg/10 Ml Udc FEED TUBE 100 mg Q12HR MIRNA Administration Donepezil HCl 5 mg 03/19/24 21:00 03/28/24 21:33 Donepezil Hcl 5 Mg Tablet PO 5 mg HS MIRNA Administration Doxazosin Mesylate 1 mg 03/19/24 18:00 03/28/24 17:06 Doxazosin Mesylate 1 Mg Tablet FEED TUBE 1 mg QPM MIRNA Administration Fluticasone Propionate 2 spray 03/22/24 11:45 03/28/24 11:01 Fluticasone Propionate 0.05% Na Spr 16 Gm Btl (*Bkc) NASAL 2 spray QAM MIRNA Administration Heparin Sodium (Porcine) 5,000 units 03/19/24 09:00 03/28/24 21:33 Heparin Sodium 5,000 Units/Ml Vial SUB-Q 5,000 units Q12HR MIRNA Administration Hydroxyzine Pamoate 25 mg 03/18/24 22:45 03/28/24 21:33 Hydroxyzine Pamoate 25 Mg Capsule FEED TUBE 25 mg Q12HR MIRNA Administration Meropenem 1 gm in 100 mls @ 200 mls/hr 03/23/24 18:00 03/29/24 03:00 IVPB Infused Q8H MIRNA Infusion Vancomycin HCl 1,500 mg in 500 mls @ 250 mls/hr 03/27/24 06:00 03/29/24 05:47 Vancomycin 1,500 Mg/Ns 500 Ml IVPB 250 mls/hr Q12H MIRNA Administration Ipratropium [place] 2 spray 03/22/24 13:00 03/28/24 17:05 Ipratropium Nasal [place] 0.03% 15 Ml Bottle NASAL 2 spray TID MIRNA Administration Loratadine 10 mg 03/18/24 22:40 03/24/24 09:04 Loratadine 10 Mg Tablet FEED TUBE 10 mg DAILY PRN Administration Congestion Magnesium Hydroxide 30 ml 03/18/24 22:33 Magnesium Hydroxide Susp 30 Ml Udc FEED TUBE DAILY PRN Constipation Pantoprazole Sodium 40 mg 03/22/24 09:00 03/28/24 21:33 Pantoprazole Sodium Iv 40 Mg Vial IV PUSH 40 mg Q12HR MIRNA Administration Saccharomyces Boulardii 250 mg 03/19/24 09:00 03/28/24 17:05 Saccharomyces Boulardii 250 Mg Capsule FEED TUBE 250 mg BID MIRNA Administration Saliva Substitute 10 ml 03/20/24 13:00 03/28/24 21:34 Saliva Substitute Rinse 473 Ml Bottle PO 10 ml QID MIRNA Administration Timolol Maleate 1 drop 03/20/24 09:50 03/28/24 21:34 Timolol Maleate 0.5% Op Soln 5 Ml Bottle EACH EYE 1 drop Q12HR MIRNA Administration Radiology Results: ITS Impressions Chest CT 03/18/24 17:48 IMPRESSION: 1. Right-sided pneumonia with a posterior and lower lung predominance. 2. Material in the right middle lobe and right lower lobe bronchi, which may be mucous plugging or aspirated material. 3. Moderate emphysema. 4. Mild mediastinal lymphadenopathy, likely reactive. Abdomen Ultrasound 03/21/24 16:41 IMPRESSION: No significant abnormality Chest X-Ray 03/28/24 15:23 IMPRESSION: Bilateral pneumonia. Underlying pulmonary edema and fibrotic changes are not excluded. Labs Labs: Laboratory Results - last 24 hr 03/28/24 03/28/24 03/28/24 11:41 16:57 18:02 WBC RBC Hgb Hct MCV MCH MCHC RDW Plt Count MPV Immature Gran % (Auto) Neut % (Auto) Lymph % (Auto) [place] % (Auto) Eos % (Auto) Baso % (Auto) Lymph # (Auto) [place] # (Auto) Eos # (Auto) Baso # (Auto) Abs Immat Gran (auto) Absolute Neuts (auto) Absolute Nucleated RBC Nucleated RBC % Sodium Potassium Chloride Carbon Dioxide Anion Gap BUN Creatinine Estim Creat Clear Calc Estimated GFR Glucose POC Capillary Glucose 116 H 125 H Calcium Total Bilirubin AST ALT Alkaline Phosphatase Total Protein Albumin Vancomycin Trough 16.6 03/28/24 03/29/24 03/29/24 23:37 04:05 06:31 WBC 9.9 RBC 3.40 L Hgb 10.3 L Hct 31.6 L MCV 92.9 MCH 30.3 MCHC 32.6 RDW 13.3 Plt Count 350 MPV 10.8 H Immature Gran % (Auto) 0.5 Neut % (Auto) 85.1 H Lymph % (Auto) 7.1 L [place] % (Auto) 5.1 Eos % (Auto) 1.9 Baso % (Auto) 0.3 Lymph # (Auto) 0.70 L [place] # (Auto) 0.5 Eos # (Auto) 0.2 Baso # (Auto) 0.0 Abs Immat Gran (auto) 0.05 H Absolute Neuts (auto) 8.4 H Absolute Nucleated RBC 0.000 Nucleated RBC % 0.0 Sodium 137 Potassium 3.4 Chloride 108 H Carbon Dioxide 30 Anion Gap -1 L BUN 15 Creatinine 0.70 Estim Creat Clear Calc 82 Estimated GFR > 60 Glucose 123 H POC Capillary Glucose 111 H 145 H Calcium 8.3 L Total Bilirubin 0.5 AST 44 ALT 65 H Alkaline Phosphatase 258 H Total Protein 6.0 L Albumin 2.4 L Vancomycin Trough Quality VTE Prophylaxis VTE prophylaxis: pharmacologic ordered Hospitalist [facility] Advance Care Plan I have confirmed that the patient's Advanced Care Plan is present, code status is documented, or surrogate decision maker is listed in patient medical record.: Yes Medication Reconciliation I have utilized all available resources to obtain, update and review the patients current medications (includes all prescriptions, OTC, herbals, cannabis, and nutritional supplements).: Yes
[2024-03-29 09:19] LABS: Procalcitonin 0.1 ng/mL
[2024-03-29 09:52] LABS: Add Urine Microscopic? YES; Appearance Urine Turbid (Clear); Bacteria Urine None Seen /hpf; Bilirubin Urine Negative (Negative); Blood Urine Negative (Negative); Color Urine Yellow (Yellow); Glucose Urine UA Negative (Negative); Ketones Urine Negative (Negative); Leukocyte Esterase Ur Negative LEU/UL (Negative); Need Manual Microscopic Reviewed; Nitrate Urine Negative (Negative); Protein Urine 1+ mg/dL (Negative); RBC Urine 0-2 /hpf (0-2); Specific Grav Ur 1.016 (1.001-1.035); Squamous Epithelial Cell Urine None Seen /hpf (Few); WBC Urine 0-5 /hpf (0-3); pH Urine 7.5 (5.0-9.0)
[2024-03-29] MEDS: ASPIRIN 81 MG CHEWABLE TABLET FEED TUBE (10:08)
[2024-03-29] MEDS: hydrOXYzine pamoate 25 MG CAPSULE FEED TUBE ×2 (10:08→20:47)
[2024-03-29] MEDS: SACCHAROMYCES BOULARDII 250 MG CAPSULE FEED TUBE ×2 (10:08→17:19)
[2024-03-29] MEDS: CYANOCOBALAMIN 1,000 MCG TABLET 1000 MCG FEED TUBE (10:08)
[2024-03-29] MEDS: PANTOPRAZOLE SODIUM IV 40 MG VIAL IV PUSH ×2 (10:09→20:50)
[2024-03-29] MEDS: DOCUSATE SODIUM LIQ 100 MG/10 ML UDC FEED TUBE ×2 (10:09→20:48)
[2024-03-29] MEDS: FLUTICASONE PROPIONATE 0.05% NA SPR 16 GM BTL (*BKC) 2 SPRAY NASAL (10:09)
[2024-03-29] MEDS: HEPARIN SODIUM 5,000 UNITS/ML VIAL 5000 UNITS SUB-Q ×2 (10:10→20:48)
[2024-03-29] MEDS: IPRATROPIUM NASAL SPRAY 0.03% 15 ML BOTTLE 2 SPRAY NASAL ×3 (10:11→17:20)
[2024-03-29] MEDS: SALIVA SUBSTITUTE RINSE 473 ML BOTTLE 10 ML PO ×4 (10:12→20:51)
[2024-03-29] MEDS: CHLORHEXIDINE GLUCONATE 0.12% ORAL RINSE 473 ML BTL (*BKC) 15 ML SWISH/SPIT ×2 (10:13→17:21)
[2024-03-29] MEDS: TIMOLOL MALEATE 0.5% OP SOLN 5 ML BOTTLE 1 DROP EACH EYE ×2 (10:14→20:51)
[2024-03-29 11:59] LABS: Glucose Point of Care 134 mg/dl (65-105)
[2024-03-29] MEDS: DOXAZOSIN MESYLATE 1 MG TABLET FEED TUBE (17:19)
[2024-03-29] MEDS: ATORVASTATIN 20 MG TABLET FEED TUBE (17:19)
[2024-03-29 18:28] LABS: Glucose Point of Care 128 mg/dl (65-105)
--- NOTE | 2024-03-29 19:01 | PM.PNPUL ---
Progress Note: A&P Assessment and Plan (1) Aspiration pneumonia: Qualifiers: Aspiration pneumonia type: unspecified Laterality: right Lung location: unspecified part of lung Qualified Code(s): J69.0 - Pneumonitis due to inhalation of food and vomit Code(s): J69.0 - Pneumonitis due to inhalation of food and vomit Status: Acute Assessment and Plan: Patient with a PEG tube on tube feedings and NPO at the correction with emesis on 03/18/24 followed by aspiration at the correction. He required suctioning at the correction in supplemental oxygen. Chest x-ray in the emergency department showed right-sided infiltrates and CT scan of the chest showed posterior right upper lobe, right lower lobe and infiltrates in the right middle lobe all in a dependent area consistent with aspiration. he required 6 L in the emergency department. 03/19/24: When I saw the patient today is nonverbal, he does not cough when I requested him to cough. He was on 4 L nasal cannula with saturations 98%. I decreased him to room air and after 8 minutes his saturations remain 96%. I did use yankour and cleared oral secretions from his mouth. He had no upper airway rhonchorous sounds. His white blood cell count is 11.6, his creatinine is 1.2 with a BUN of 40, his MRSA nasal swab PCR is negative. plan: The patient did aspirate. He is on tube feedings and NPO so he would have not aspirated any solid food particles. He had debris in right lower lobe and right middle lobe airways on his CT scan likely mucous. Chest x-ray today demonstrates no lobar collapse. Patient's oxygenation has improved. There is no need for bronchoscopy at this time. Patient was empirically started on vancomycin, ceftriaxone and azithromycin. His MRSA nasal swab is negative. Will discontinue vancomycin, ceftriaxone and azithromyci nand change the patient to unasyn 3 gm Q 6 hours. Will continue DuoNebs Q 6 as a history of COPD with mild apical predominant centrilobular emphysema on a CT scan of the chest. 03/20/24: patient is nonverbal attempting to mouth words. Patient had rhonchorous breath sounds when I entered the room. I asked him to cough and he did not follow commands. I used a Yankauer and suction thick secretions from the back of his oropharynx. Room air saturations 97%. White blood cell count 8.2, creatinine 0.8, afebrile. Weight is 65 kg. patient is clinically stable. He is now on room air. Leukocytosis has improved. He is afebrile. Plan: Patient is day 3 total antibiotics, day 2 Unasyn. Clinically he is has improved. It should be noted that the patient cannot clear his oral secretions and he is at high risk for subsequent aspiration events. I will check a chest x-ray on 03/21 and if this is stable would be ready for discharge on these pulmonary medications. Augmentin suspension 400 -57/5 ml at 10 ml BID x3 days (to finish a 7 day course of total antibiotics). 03/21/24: Patient is nonverbal, attempts to mouth words but does not follow any commands. Rhonchorous upper airway sounds with an inability to cough to command and inability to clear his secretions. Yankauer again used with suctioning of secretions from the back of his mouth. Room air saturation 96%. Patient had a temperature to 99.9 this morning. Chest x-ray shows worsening right mid and lower lung infiltrates and increased left lower lung infiltrates. Plan: Patient with a low-grade temperature this morning and chest x-ray with worsening right middle and lower and left lower lobe infiltrates. Oxygenation remained stable on room air. Etiology for low-grade fever and worsening infiltrates include continued aspiration events, at this time will follow patient's temperature curve and I will not change his antibiotics and continue Unasyn day 3. Total antibiotics is day 4. Will send testing for additional etiologies of low-grade fever (LFTs, lipase). Spoke with the nurse. The patient has had formed bowel movements. will repeat chest x-ray on 03/22/2024. 03/22/24: Nonverbal, unable to cough up secretions. Patient has episodes of inability to cough secretions with hypoxia. After suctioning he requires no oxygen. When I enter the room he was on 2 L nasal cannula saturations 100. I changed him to room air and after 8 minutes his saturations were 97%. White blood cell count 5.9, creatinine 0.8. Procalcitonin 0.8. He has been afebrile. Chest x-ray with continued right lung infiltrates worsening infiltrates left lower lobe. Plan: Patient remains afebrile, no leukocytosis, procalcitonin decreased today it is 0.8, chest x-ray with continued right and worsening left lower lobe infiltrate. I suspect his left lower lobe infiltrates are related to retained and/or aspirated secretions, atelectasis rather than a new bacterial pneumonia. Total antibiotics day 5, Unasyn day 4. As predicted he has continued inability to clear secretions with hypoxia that is transient and resolved after he has deep suctioning to remove secretions. Unfortunately this issue is a continuation of his dementia and I suspect this will continue to happen in the future. I do not favor using anticholinergic agents to dry up his secretions as this may result in worsening mucus plugging and lobar collapse. I will continue duo nebulizers Q 4 hours. I would not performed Vest therapy with the patient's G-tube and history of him removing the G-tube. We will need to determine if Anita Dee can provide the patient with schedule deep suctioning as this will be required on discharge if the family wishes for continued care in an attempt to prevent recurrent mucus plugging, aspiration and hospitalization. 03/29/24; He is in a similar condition as he was when Dr Garcia last saw him Mar 22. He is unable to cough expectorate secretions from his airway. He aspirates saliva, gets fed through a peg however still has recurrent aspiration which is not prevented by having his feedings bypassing his mouth. This saturation is not going to improve. His condition is assocaited with a poor prognosis especiatlly with impaired cognition. Subjective Date/time seen: 03/29/24 19:01 Interval history: Interval history: 03/19/2024: This is a new pulmonary consult for aspiration pneumonia. 79-year-old with a history of dementia, CVA, coronary artery disease, CKD, status post PEG 11/13/2023 on tube feedings at the correction. Regarding his dementia patient is nonverbal and to my exam today did not follow any verbal commands. Patient has had multiple emergency room department visits and hospitalizations for PEG tube removal as he pulls this out at the correction. On 03/18/2024 the patient vomited at the correction with a witnessed aspiration. They attempted to clear his airway but he was hypoxic and they gave him supplemental oxygen and he was transferred to the emergency department. In the emergency department he had copious secretions with difficulty coughing. Deep suction cleared his secretions and improved his respiratory status. He required 6 L nasal cannula in the emergency department with saturations 96%. Blood pressure 120/81, heart rate 102. White blood cell count 9.7, creatinine 1.2, BUN 47, COVID influenza and RSV RT PCR studies negative. Chest x-ray showed right lung infiltrate. CT of the chest showed posterior right upper lobe, right lower lobe infiltrates, right middle lobe infiltrates as well with some debris in the right middle lobe and right lower lobe. Patient was admitted for aspiration pneumonia and started on ceftriaxone, azithromycin and given vancomycin. DuoNebs were initiated. 03/19/2024: the daytime nurse told me that he had to be suctioned with a Yankauer 2 or 3 times throughout the night and also had deep suctioning through the nose through the night. She related there was a small amount of blood. When I saw the patient today is nonverbal, he does not cough when I requested him to cough. He was on 4 L nasal cannula with saturations 98%. I decreased him to room air and after 8 minutes his saturations remain 96%. I did use yankour and cleared oral secretions from his mouth. He had no upper airway rhonchorous sounds. His white blood cell count is 11.6, his creatinine is 1.2 with a BUN of 40, his MRSA nasal swab PCR is negative. 03/20/24: patient is nonverbal attempting to mouth words. Patient had rhonchorous breath sounds when I entered the room. I asked him to cough and he did not follow commands. I used a Yankauer and suction thick secretions from the back of his oropharynx. Room air saturations 97%. White blood cell count 8.2, creatinine 0.8, afebrile. Weight is 65 kg. 03/21/24: Patient is nonverbal, attempts to mouth words but does not follow any commands. rhonchorous upper airway sounds with an inability to cough to command and inability to clear his secretions. Yankauer again used with suctioning of secretions from the back of his mouth. Room air saturation 96%. Patient had a temperature to 99.9 this morning. Chest x-ray shows worsening right mid and lower lung infiltrates and increased left lower lung infiltrates. 03/22/24: Nonverbal, unable to cough up secretions. Patient has episodes of inability to cough secretions with hypoxia. After suctioning he requires no oxygen. When I enter the room he was on 2 L nasal cannula saturations 100. I changed him to room air and after 8 minutes his saturations were 97%. White blood cell count 5.9, creatinine 0.8. Procalcitonin 0.8. He has been afebrile. Chest x-ray with continued right lung infiltrates worsening infiltrates left lower lobe. 03/29/2024; Patient is seen again for aspiration. He is alert, non-verbal, has harsh moist noises from his mouth. He has ineffective cough, cannot expectorate secretions. He has dementia, has pulled his PEG out. When he does not get mucus plugging, his saturation is normal. He is not able to keep his airway clear without intermittent suctioning. He is on 4-5 L NC and saturation is 90-93%. DATA: EXAMINATION:CT diagnostic chest wo con DATE: 03/18/2024 17:46 INDICATION: Pneumonia. Abnormal chest radiographs. TECHNIQUE: Computed tomography (CT) of the chest was performed without intravenous contrast. Automated exposure control and iterative reconstruction technique were employed. The dose-length product (DLP) was 157.84 mGy-cm. COMPARISON: Chest single view 03/18/2024 FINDINGS: There is moderate emphysema. There is mild scarring at left lung apex. There are airspace opacities in all right lung lobes with a posterior lower lung predominance, consistent with pneumonia. Calcified bilateral lung nodules and calcified right hilar lymph nodes are consistent with old granulomatous disease. There is a 5 mm nodule in left upper lobe, likely benign. There is material in the bronchi in right middle lobe and right lower lobe. There is mild dependent atelectasis in left lower lobe. No pleural effusion. The heart size is normal. No pericardial effusion. There is mild mediastinal lymphadenopathy. A gastrostomy tube is partially visualized. There is a chronic compression fracture of L2. There are bridging endplate osteophytes at multiple levels in the spine, consistent with diffuse idiopathic skeletal hyperostosis (DISH). IMPRESSION: 1. Right-sided pneumonia with a posterior and lower lung predominance. 2. Material in the right middle lobe and right lower lobe bronchi, which may be mucous plugging or aspirated material. 3. Moderate emphysema. 4. Mild mediastinal lymphadenopathy, likely reactive. Review of Systems Review of Systems: ROS unobtainable: Yes unobtainable due to medical condition Exam Narrative: GEN: Alert, oriented, not in distress. He can track visually, cannot follow commands. HEENT: pupils are equal, EOMI, symmetrical face; oral membranes moist, Mallampati II airway NECK: Trachea is midline CHEST: Equal air entry, symmetric excursion, bilateral rhonchi CV: Regular S1S2 no m/g/r ABD : (+) bowel sounds Extremities : no clubbing, cyanosis, or edema PSYCH: cannot assess thought because he is non-verbal; gait is not tested Objective Data Vital Signs Vital Signs: Vital Signs - 24 hr 03/28/24 19:29 03/28/24 19:54 03/28/24 19:55 Temperature 37.3 C Pulse Rate 80 74 Respiratory Rate 22 H 20 Blood Pressure 121/69 Pulse Oximetry 95 88 L Oxygen Delivery Nasal Cannula Oxygen Flow Rate 4 Fraction of Inspired Oxygen 03/28/24 20:00 03/28/24 20:00 03/28/24 20:00 Temperature Pulse Rate 78 77 Respiratory Rate 20 16 Blood Pressure Pulse Oximetry 95 95 Oxygen Delivery Nasal Cannula Nasal Cannula Oxygen Flow Rate 4.5 4 Fraction of Inspired Oxygen 21 03/28/24 20:00 03/28/24 23:54 03/29/24 00:00 Temperature Pulse Rate 77 77 78 Respiratory Rate 20 20 Blood Pressure Pulse Oximetry Oxygen Delivery Oxygen Flow Rate Fraction of Inspired Oxygen 03/29/24 00:00 03/29/24 04:00 03/29/24 06:12 Temperature 37.4 C Pulse Rate 76 94 91 Respiratory Rate 20 Blood Pressure 161/89 H Pulse Oximetry 96 Oxygen Delivery Oxygen Flow Rate Fraction of Inspired Oxygen 03/29/24 06:59 03/29/24 06:59 03/29/24 07:06 Temperature Pulse Rate 90 92 Respiratory Rate 20 20 Blood Pressure Pulse Oximetry 93 Oxygen Delivery Nasal Cannula Oxygen Flow Rate 5 Fraction of Inspired Oxygen 03/29/24 08:00 03/29/24 10:30 03/29/24 12:00 Temperature Pulse Rate 84 90 Respiratory Rate Blood Pressure Pulse Oximetry 93 Oxygen Delivery Nasal Cannula Oxygen Flow Rate 4 Fraction of Inspired Oxygen 03/29/24 13:24 03/29/24 13:33 03/29/24 14:00 Temperature 36.7 C Pulse Rate 84 80 86 Respiratory Rate 20 20 26 H Blood Pressure 134/71 Pulse Oximetry 91 Oxygen Delivery Oxygen Flow Rate Fraction of Inspired Oxygen 03/29/24 15:49 03/29/24 15:52 03/29/24 16:00 Temperature Pulse Rate 85 84 Respiratory Rate 20 Blood Pressure Pulse Oximetry 95 Oxygen Delivery Nasal Cannula Oxygen Flow Rate 5 Fraction of Inspired Oxygen 03/29/24 16:01 Temperature Pulse Rate 85 Respiratory Rate 20 Blood Pressure Pulse Oximetry Oxygen Delivery Oxygen Flow Rate Fraction of Inspired Oxygen Intake/Output Intake/Output: Intake & Output 03/26/24 03/27/24 03/28/24 03/29/24 23:59 23:59 23:59 23:59 Intake Total 1600 2684 3588 1675 Output Total 1700 2200 2950 1850 Balance -100 484 638 -175 Meds/Results Medications: Active Medications Generic Name Dose Route Start Last Admin Trade Name Freq PRN Reason Stop Dose Admin Acetaminophen 650 mg 03/24/24 22:31 03/28/24 17:04 Acetaminophen Elixir 325 Mg/10.15 Ml Udc FEED TUBE 650 mg Q4H PRN Administration Mild Pain (1-3) or Fever Albuterol/Ipratropium 3 ml 03/19/24 16:00 03/29/24 15:48 Ipratropium 0.5 Mg/Albuterol Sulfate 2.5 Mg Ampul.Neb 3 Ml INHALATION 3 ml Q4HRT MIRNA Administration Aspirin 81 mg 03/20/24 09:00 03/29/24 10:08 Aspirin 81 Mg Chewable Tablet FEED TUBE 81 mg DAILY MIRNA Administration Atorvastatin Calcium 20 mg 03/19/24 18:00 03/29/24 17:19 Atorvastatin 20 Mg Tablet FEED TUBE 20 mg QPM MIRNA Administration Bisacodyl 10 mg 03/18/24 22:33 Bisacodyl 10 Mg Suppository RECTAL DAILY PRN Constipation Bisacodyl 10 mg 03/21/24 09:00 03/29/24 08:25 Bisacodyl 10 Mg Suppository RECTAL Not Given QAM [facility] Chlorhexidine Gluconate 15 ml 03/21/24 09:00 03/29/24 17:21 Chlorhexidine Gluconate 0.12% Oral Rinse 473 Ml Btl (*Bkc) SWISH/SPIT 15 ml BID MIRNA Administration Cyanocobalamin 1,000 mcg 03/19/24 09:00 03/29/24 10:08 Cyanocobalamin 1,000 Mcg Tablet FEED TUBE 1,000 mcg DAILY MIRNA Administration Docusate Sodium 100 mg 03/19/24 09:00 03/29/24 10:09 Docusate Sodium Liq 100 Mg/10 Ml Udc FEED TUBE 100 mg Q12HR MIRNA Administration Donepezil HCl 5 mg 03/19/24 21:00 03/28/24 21:33 Donepezil Hcl 5 Mg Tablet PO 5 mg HS MIRNA Administration Doxazosin Mesylate 1 mg 03/19/24 18:00 03/29/24 17:19 Doxazosin Mesylate 1 Mg Tablet FEED TUBE 1 mg QPM MIRNA Administration Fluticasone Propionate 2 spray 03/22/24 11:45 03/29/24 10:09 Fluticasone Propionate 0.05% Na Spr 16 Gm Btl (*Bkc) NASAL 2 spray QAM MIRNA Administration Heparin Sodium (Porcine) 5,000 units 03/19/24 09:00 03/29/24 10:10 Heparin Sodium 5,000 Units/Ml Vial SUB-Q 5,000 units Q12HR MIRNA Administration Hydroxyzine Pamoate 25 mg 03/18/24 22:45 03/29/24 10:08 Hydroxyzine Pamoate 25 Mg Capsule FEED TUBE 25 mg Q12HR MIRNA Administration Meropenem 1 gm in 100 mls @ 200 mls/hr 03/23/24 18:00 03/29/24 17:18 IVPB 200 mls/hr Q8H MIRNA Administration Vancomycin HCl 1,500 mg in 500 mls @ 250 mls/hr 03/27/24 06:00 03/29/24 17:48 Vancomycin 1,500 Mg/Ns 500 Ml IVPB 250 mls/hr Q12H MIRNA Administration Ipratropium [place] 2 spray 03/22/24 13:00 03/29/24 17:20 Ipratropium Nasal [place] 0.03% 15 Ml Bottle NASAL 2 spray TID MIRNA Administration Loratadine 10 mg 03/18/24 22:40 03/24/24 09:04 Loratadine 10 Mg Tablet FEED TUBE 10 mg DAILY PRN Administration Congestion Magnesium Hydroxide 30 ml 03/18/24 22:33 Magnesium Hydroxide Susp 30 Ml Udc FEED TUBE DAILY PRN Constipation Pantoprazole Sodium 40 mg 03/22/24 09:00 03/29/24 10:09 Pantoprazole Sodium Iv 40 Mg Vial IV PUSH 40 mg Q12HR MIRNA Administration Saccharomyces Boulardii 250 mg 03/19/24 09:00 03/29/24 17:19 Saccharomyces Boulardii 250 Mg Capsule FEED TUBE 250 mg BID MIRNA Administration Saliva Substitute 10 ml 03/20/24 13:00 03/29/24 17:21 Saliva Substitute Rinse 473 Ml Bottle PO 10 ml QID MIRNA Administration Timolol Maleate 1 drop 03/20/24 09:50 03/29/24 10:14 Timolol Maleate 0.5% Op Soln 5 Ml Bottle EACH EYE 1 drop Q12HR MIRNA Administration Radiology Results: ITS Impressions Chest CT 03/18/24 17:48 IMPRESSION: 1. Right-sided pneumonia with a posterior and lower lung predominance. 2. Material in the right middle lobe and right lower lobe bronchi, which may be mucous plugging or aspirated material. 3. Moderate emphysema. 4. Mild mediastinal lymphadenopathy, likely reactive. Abdomen Ultrasound 03/21/24 16:41 IMPRESSION: No significant abnormality Chest X-Ray 03/28/24 15:23 IMPRESSION: Bilateral pneumonia. Underlying pulmonary edema and fibrotic changes are not excluded. Labs Labs: Laboratory Results - last 24 hr 03/28/24 03/29/24 03/29/24 23:37 03:58 04:05 WBC 9.9 RBC 3.40 L Hgb 10.3 L Hct 31.6 L MCV 92.9 MCH 30.3 MCHC 32.6 RDW 13.3 Plt Count 350 MPV 10.8 H Immature Gran % (Auto) 0.5 Neut % (Auto) 85.1 H Lymph % (Auto) 7.1 L [place] % (Auto) 5.1 Eos % (Auto) 1.9 Baso % (Auto) 0.3 Lymph # (Auto) 0.70 L [place] # (Auto) 0.5 Eos # (Auto) 0.2 Baso # (Auto) 0.0 Abs Immat Gran (auto) 0.05 H Absolute Neuts (auto) 8.4 H Absolute Nucleated RBC 0.000 Nucleated RBC % 0.0 Sodium 137 Potassium 3.4 Chloride 108 H Carbon Dioxide 30 Anion Gap -1 L BUN 15 Creatinine 0.70 Estim Creat Clear Calc 82 Estimated GFR > 60 Glucose 123 H POC Capillary Glucose 111 H Calcium 8.3 L Total Bilirubin 0.5 AST 44 ALT 65 H Alkaline Phosphatase 258 H Total Protein 6.0 L Albumin 2.4 L Procalcitonin 0.1 Urine Color Urine Appearance Urine pH Ur Specific Nabb Urine Protein Urine Glucose (UA) Urine Ketones Ur Blood (Man) Urine Nitrate Urine Bilirubin Urine Urobilinogen Ur Leukocyte Esterase Add Ur Microanalysis Urine RBC Urine WBC Ur Squamous Epith Cells Urine Bacteria Urine Casts 03/29/24 03/29/24 03/29/24 06:31 09:22 11:46 WBC RBC Hgb Hct MCV MCH MCHC RDW Plt Count MPV Immature Gran % (Auto) Neut % (Auto) Lymph % (Auto) [place] % (Auto) Eos % (Auto) Baso % (Auto) Lymph # (Auto) [place] # (Auto) Eos # (Auto) Baso # (Auto) Abs Immat Gran (auto) Absolute Neuts (auto) Absolute Nucleated RBC Nucleated RBC % Sodium Potassium Chloride Carbon Dioxide Anion Gap BUN Creatinine Estim Creat Clear Calc Estimated GFR Glucose POC Capillary Glucose 145 H 134 H Calcium Total Bilirubin AST ALT Alkaline Phosphatase Total Protein Albumin Procalcitonin Urine Color Yellow Urine Appearance Turbid H Urine pH 7.5 Ur Specific Nabb 1.016 Urine Protein 1+ H Urine Glucose (UA) Negative Urine Ketones Negative Ur Blood (Man) Negative Urine Nitrate Negative Urine Bilirubin Negative Urine Urobilinogen 1.0 Ur Leukocyte Esterase Negative Add Ur Microanalysis Reviewed Urine RBC 0-2 Urine WBC 0-5 Ur Squamous Epith Cells None seen Urine Bacteria None seen Urine Casts 6-10 03/29/24 18:06 WBC RBC Hgb Hct MCV MCH MCHC RDW Plt Count MPV Immature Gran % (Auto) Neut % (Auto) Lymph % (Auto) [place] % (Auto) Eos % (Auto) Baso % (Auto) Lymph # (Auto) [place] # (Auto) Eos # (Auto) Baso # (Auto) Abs Immat Gran (auto) Absolute Neuts (auto) Absolute Nucleated RBC Nucleated RBC % Sodium Potassium Chloride Carbon Dioxide Anion Gap BUN Creatinine Estim Creat Clear Calc Estimated GFR Glucose POC Capillary Glucose 128 H Calcium Total Bilirubin AST ALT Alkaline Phosphatase Total Protein Albumin Procalcitonin Urine Color Urine Appearance Urine pH Ur Specific Nabb Urine Protein Urine Glucose (UA) Urine Ketones Ur Blood (Man) Urine Nitrate Urine Bilirubin Urine Urobilinogen Ur Leukocyte Esterase Add Ur Microanalysis Urine RBC Urine WBC Ur Squamous Epith Cells Urine Bacteria Urine Casts
[2024-03-29] MEDS: DONEPEZIL HCL 5 MG TABLET PO (20:47)
[2024-03-29 23:38] LABS: Glucose Point of Care 138 mg/dl (65-105)
[2024-03-30] VITALS (28 sets, daily range): BP systolic 120–138; BP diastolic 70–97; PULSE 69–104; RESP 18–24; TEMP 36.4–36.8; O2SAT 60–99
[2024-03-30] MEDS: MEROPENEM 1 GM/NS 100 ML BAG IVPB ×3 (02:05→17:48)
[2024-03-30] MEDS: IPRATROPIUM 0.5 MG/ALBUTEROL SULFATE 2.5 MG AMPUL.NEB 3 ML INHALATION ×5 (04:58→20:03)
[2024-03-30] MEDS: VANCOMYCIN 1,500 MG/NS 500 ML 1,500 MG/500 ML BAG 250 MG IVPB (05:42)
[2024-03-30 05:51] LABS: Alanine Aminotransferase 42 U/L (6-50); Albumin Level 2.2 g/dL (3.5-5.1); Alkaline Phosphatase 194 U/L (38-126); Anion Gap 0 mmol/L (4-12); Aspartate Amino Transferase 29 U/L (17-59); Bilirubin,Total 0.4 mg/dL (0.2-1.3); Blood Urea Nitrogen 15 mg/dL (9-20); Carbon Dioxide 30 mmol/L (22-30); Chloride 107 mmol/L (98-107); Estimated CRCL calculation 82 ml/min; Estimated Glomerular Filt Rate > 60; Glucose 123 mg/dL (65-110); Potassium 3.4 mmol/L (3.4-5.0); Sodium 137 mmol/L (137-145)
[2024-03-30 06:07] LABS: Glucose Point of Care 130 mg/dl (65-105)
[2024-03-30 08:20] LABS: Basophils Percent Auto 0.3 % (0.2-1.2); Eosinophils Absolute Auto 0.2 K/mm3 (0-0.3); Eosinophils Percent Auto 2.2 % (0-4.4); Hematocrit 31.3 % (42.0-52.0); Immature Granulocyte Absolute 0.05 K/mm3 (0.00-0.031); Immature Granulocyte Percent A 0.6 % (0-0.5); Lymphocytes Absolute Auto 0.69 K/mm3 (0.9-3.2); Lymphocytes Percent Auto 7.8 % (18.3-44.2); Mean Corpuscular HGB Conc 31.9 g/dl (32-36); Mean Corpuscular Hemoglobin 29.9 pg (26-34); Mean Corpuscular Volume 93.4 fl (80-100); Monocytes Absolute Auto 0.5 K/mm3 (0.1-0.6); Monocytes Percent Auto 5.7 % (2.6-8.5); Neutrophils Absolute Auto 7.3 K/mm3 (1.3-6.7); Neutrophils Percent Auto 83.4 % (45.5-73.1); Platelet Count Result 398 k/mm3 (150-375); Red Blood Count 3.35 M/mm3 (4.6-6.20); Red Cell Distribution Width 13.4 % (11.5-14.5); White Blood Count 8.8 K/mm3 (4.5-10.0)
--- NOTE | 2024-03-30 09:18 | P.PNIM_ITS ---
Progress Note: A&P Assessment and Plan (1) Sepsis: Qualifiers: Sepsis type: sepsis due to unspecified organism Sepsis acute organ dysfunction status: with acute organ dysfunction Severe sepsis acute organ dysfunction type: acute respiratory failure Acute respiratory failure type: with hypoxia Severe sepsis shock status: without septic shock Qualified Code(s): A41.9 - Sepsis, unspecified organism; R65.20 - Severe sepsis without septic shock; J96.01 - Acute respiratory failure with hypoxia Code(s): A41.9 - Sepsis, unspecified organism Status: Resolved Assessment and Plan: Sepsis Low grade temp Patient met sepsis criteria on admission with tachycardia, tachypnea, hypotenision, CXR consistent with PNA, a failure. -- Repeat CXR 03/28: Bilateral pneumonia. Underlying pulmonary edema and fibrotic changes are not excluded -- Blood cultures NGTD. -- No fevers last 24 hrs. -- BCX2- NGTD, -- Urine culture negative, -- WBC's stable, slightly trended down. -- Currently on Meropenem and Vancomycin IV. -- Specialty Trimmer re-consulted. -- Continue current abx treatment. (2) Aspiration pneumonia: Qualifiers: Aspiration pneumonia type: unspecified Laterality: right Lung location: unspecified part of lung Qualified Code(s): J69.0 - Pneumonitis due to inhalation of food and vomit Code(s): J69.0 - Pneumonitis due to inhalation of food and vomit Status: Acute Assessment and Plan: Treating aspiration pneumonia. Had an episode of emesis on presentation. 03/22 Chest x-ray Airspace opacities in right mid and lower lung zones and left lower lung zone with mild worsening on the left, consistent with pneumonia. -- Repeat CXR; Bilateral pneumonia. Underlying pulmonary edema and fibrotic changes are not excluded. --Previously on Unasyn, now on Meropenem and Vancomycin. -- Continue oral suctioning PRN and nasal tracheal PRN. -- Continue aspiration precautions. -- Other mgt as # 1 above. (3) Acute hypoxemic respiratory failure: Code(s): J96.01 - Acute respiratory failure with hypoxia Status: Acute Assessment and Plan: Acute hypoxic respiratory failure Aspiration pneumonia --Currently on Meropenem and Vancomycin. MRSA PCR negative. --Worsening infiltrates on chest x-ray and fever episodes. --Repeat CXR 03/28; Bilateral pneumonia. Underlying pulmonary edema and fibrotic changes are not excluded. -- Likely due to inability to cough up secretions. -- Was on 7LHF/NC overnight per RN due to hypoxia. -- O2 weaned down to 5L/NC for sats > 90 %. -- Pulmonary re-consulted. --Aspiration precautions, elevate HOB. --NPO. Artificial saliva, frequent oral care. Continue peridex --Continue suctioning prn --Continue flonase and ipatropium nasal spray. (4) COPD (chronic obstructive pulmonary disease): Qualifiers: COPD type: COPD with acute lower respiratory infection Qualified Code(s): J44.0 - Chronic obstructive pulmonary disease with (acute) lower respiratory infection Code(s): J44.9 - Chronic obstructive pulmonary disease, unspecified Status: Acute Assessment and Plan: * COPD. * Appears compensated. * Continue scheduled duonebs. * Continue supplemental O2 for now, now on 5L/NC. (5) AMS (altered mental status): Qualifiers: Altered mental status type: unspecified Qualified Code(s): R41.82 - Altered mental status, unspecified Code(s): R41.82 - Altered mental status, unspecified Status: Chronic Assessment and Plan: Seems at baseline. Hx dementia (6) Transaminitis: Code(s): R74.01 - Elevation of levels of liver transaminase levels Status: Chronic Assessment and Plan: Transaminitis * Chronic and trending down. * Possibly related to infection. 03/21 US abdomen no gallstones or gallbladder wall thickening -- No further w/u for now. (7) Dementia: Qualifiers: Dementia type: unspecified type Dementia severity: severe Dementia behavioral or psychological symptom: unspecified whether behavioral, psychotic, or mood disturbance or anxiety Qualified Code(s): F03.C0 - Unspecified dementia, severe, without behavioral disturbance, psychotic disturbance, mood disturbance, and anxiety Code(s): F03.90 - Unspecified dementia, unspecified severity, without behavioral disturbance, psychotic disturbance, mood disturbance, and anxiety Status: Chronic Assessment and Plan: Dementia Pt with G-tube secondary to malnutrition. Appears to be tolerating tube feeds well. Continue supportive care. Turn q2. Respiratory failure likely related to dementia, with inability to clear secretions. (8) Anemia: Code(s): D64.9 - Anemia, unspecified Status: Acute Assessment and Plan: --Hgb appears stable. --Seen by GI. -- Had EGD x2 last few months when G-tube was placed without major findings. -- No need to repeat endoscopic evaluation, anemia probably multifactorial per GI. (9) Hypokalemia: Code(s): E87.6 - Hypokalemia Status: Acute Assessment and Plan: * Continue to replete as needed. Plan Time Spent With Patient Time with patient: 15 - 25 minutes Subjective Date/time seen: 03/30/24 09:18 Patient non-verbal on bedrest sleeping. Interval history: Pt sleeping with HOB elevated, looks to be in no acute distress. Review of Systems Review of Systems: All systems reviewed & are unremarkable except as noted in HPI and below ROS unobtainable: Yes unobtainable due to medical condition (Dementia), unobtainable due to mental status and other (Patient non-verbal) Exam Narrative: CONSTITUTIONAL: Nonverbal, sitting up on bedrest with intermittent shallow coughs. HENMT: Atraumatic and normocephalic. Poor oral hygiene. Dry MM. NECK: Limited range of motion RESPIRATORY: Coarse to bases, slightly congested, shallow coughs with poor inspiratory effort. CARDIO: RRR, no murmurs. GI: Soft, NT, BS present x4 quads without any distention, PEG-Tube intact. : Incontinent. SKIN: Stage 1 wound x2 to the right hip. Dressing in place. Small skin tear also to right upper thigh posteriorly. NEURO: Hung LE weakness. Objective Data Vital Signs Vital Signs: Vital Signs - 24 hr 03/29/24 10:30 03/29/24 12:00 03/29/24 13:24 Temperature Pulse Rate 90 84 Respiratory Rate 20 Blood Pressure Pulse Oximetry 93 Oxygen Delivery Nasal Cannula Oxygen Flow Rate 4 03/29/24 13:33 03/29/24 14:00 03/29/24 15:49 Temperature 98.1 F Pulse Rate 80 86 85 Respiratory Rate 20 26 H 20 Blood Pressure 134/71 Pulse Oximetry 91 Oxygen Delivery Oxygen Flow Rate 03/29/24 15:52 03/29/24 16:00 03/29/24 16:01 Temperature Pulse Rate 84 85 Respiratory Rate 20 Blood Pressure Pulse Oximetry 95 Oxygen Delivery Nasal Cannula Oxygen Flow Rate 5 03/29/24 20:00 03/29/24 20:00 03/29/24 20:02 Temperature Pulse Rate 103 H 103 H Respiratory Rate 20 Blood Pressure Pulse Oximetry 90 Oxygen Delivery Nasal Cannula Oxygen Flow Rate 6 03/29/24 20:04 03/29/24 20:12 03/29/24 20:20 Temperature 98.6 F Pulse Rate 110 H 101 H Respiratory Rate 20 18 Blood Pressure 136/77 Pulse Oximetry 89 L 90 Oxygen Delivery Nasal Cannula Oxygen Flow Rate 5 03/30/24 00:00 03/30/24 04:00 03/30/24 04:55 Temperature Pulse Rate 91 79 Respiratory Rate Blood Pressure Pulse Oximetry 88 L Oxygen Delivery Nasal Cannula Oxygen Flow Rate 6 03/30/24 04:55 03/30/24 04:58 03/30/24 05:02 Temperature 97.6 F Pulse Rate 89 69 Respiratory Rate 20 18 Blood Pressure 120/97 H Pulse Oximetry 93 90 Oxygen Delivery High Flow Nasal Cannula Oxygen Flow Rate 7 03/30/24 05:12 03/30/24 07:25 03/30/24 07:25 Temperature Pulse Rate 88 85 Respiratory Rate 20 20 Blood Pressure Pulse Oximetry 92 Oxygen Delivery High Flow Nasal Cannula Oxygen Flow Rate 7 03/30/24 07:33 Temperature Pulse Rate 89 Respiratory Rate 20 Blood Pressure Pulse Oximetry Oxygen Delivery Oxygen Flow Rate Intake/Output Intake/Output: Intake & Output 03/27/24 03/28/24 03/29/24 03/30/24 23:59 23:59 23:59 23:59 Intake Total 2684 3588 2275 100 Output Total 2200 2950 2700 800 Balance 527 [phone] Meds/Results Medications: Active Medications Generic Name Dose Route Start Last Admin Trade Name Freq PRN Reason Stop Dose Admin Acetaminophen 650 mg 03/24/24 22:31 03/28/24 17:04 Acetaminophen Elixir 325 Mg/10.15 Ml Udc FEED TUBE 650 mg Q4H PRN Administration Mild Pain (1-3) or Fever Albuterol/Ipratropium 3 ml 03/19/24 16:00 03/30/24 07:21 Ipratropium 0.5 Mg/Albuterol Sulfate 2.5 Mg Ampul.Neb 3 Ml INHALATION 3 ml Q4HRT MIRNA Administration Aspirin 81 mg 03/20/24 09:00 03/29/24 10:08 Aspirin 81 Mg Chewable Tablet FEED TUBE 81 mg DAILY MIRNA Administration Atorvastatin Calcium 20 mg 03/19/24 18:00 03/29/24 17:19 Atorvastatin 20 Mg Tablet FEED TUBE 20 mg QPM MIRNA Administration Bisacodyl 10 mg 03/18/24 22:33 Bisacodyl 10 Mg Suppository RECTAL DAILY PRN Constipation Bisacodyl 10 mg 03/21/24 09:00 03/29/24 08:25 Bisacodyl 10 Mg Suppository RECTAL Not Given QAM MIRNA Chlorhexidine Gluconate 15 ml 03/21/24 09:00 03/29/24 17:21 Chlorhexidine Gluconate 0.12% Oral Rinse 473 Ml Btl (*Bkc) SWISH/SPIT 15 ml BID MIRNA Administration Cyanocobalamin 1,000 mcg 03/19/24 09:00 03/29/24 10:08 Cyanocobalamin 1,000 Mcg Tablet FEED TUBE 1,000 mcg DAILY MIRNA Administration Docusate Sodium 100 mg 03/19/24 09:00 03/29/24 20:48 Docusate Sodium Liq 100 Mg/10 Ml Udc FEED TUBE 100 mg Q12HR MIRNA Administration Donepezil HCl 5 mg 03/19/24 21:00 03/29/24 20:47 Donepezil Hcl 5 Mg Tablet PO 5 mg HS MIRNA Administration Doxazosin Mesylate 1 mg 03/19/24 18:00 03/29/24 17:19 Doxazosin Mesylate 1 Mg Tablet FEED TUBE 1 mg QPM MIRNA Administration Fluticasone Propionate 2 spray 03/22/24 11:45 03/29/24 10:09 Fluticasone Propionate 0.05% Na Spr 16 Gm Btl (*Bkc) NASAL 2 spray QAM MIRNA Administration Heparin Sodium (Porcine) 5,000 units 03/19/24 09:00 03/29/24 20:48 Heparin Sodium 5,000 Units/Ml Vial SUB-Q 5,000 units Q12HR MIRNA Administration Hydroxyzine Pamoate 25 mg 03/18/24 22:45 03/29/24 20:47 Hydroxyzine Pamoate 25 Mg Capsule FEED TUBE 25 mg Q12HR MIRNA Administration Meropenem 1 gm in 100 mls @ 200 mls/hr 03/23/24 18:00 03/30/24 02:35 IVPB Infused Q8H MIRNA Infusion Vancomycin HCl 1,500 mg in 500 mls @ 250 mls/hr 03/27/24 06:00 03/30/24 05:42 Vancomycin 1,500 Mg/Ns 500 Ml IVPB 250 mls/hr Q12H MIRNA Administration Ipratropium [place] 2 spray 03/22/24 13:00 03/29/24 17:20 Ipratropium Nasal [place] 0.03% 15 Ml Bottle NASAL 2 spray TID MIRNA Administration Loratadine 10 mg 03/18/24 22:40 03/24/24 09:04 Loratadine 10 Mg Tablet FEED TUBE 10 mg DAILY PRN Administration Congestion Magnesium Hydroxide 30 ml 03/18/24 22:33 Magnesium Hydroxide Susp 30 Ml Udc FEED TUBE DAILY PRN Constipation Pantoprazole Sodium 40 mg 03/22/24 09:00 03/29/24 20:50 Pantoprazole Sodium Iv 40 Mg Vial IV PUSH 40 mg Q12HR MIRNA Administration Saccharomyces Boulardii 250 mg 03/19/24 09:00 03/29/24 17:19 Saccharomyces Boulardii 250 Mg Capsule FEED TUBE 250 mg BID MIRNA Administration Saliva Substitute 10 ml 03/20/24 13:00 03/29/24 20:51 Saliva Substitute Rinse 473 Ml Bottle PO 10 ml QID MIRNA Administration Timolol Maleate 1 drop 03/20/24 09:50 03/29/24 20:51 Timolol Maleate 0.5% Op Soln 5 Ml Bottle EACH EYE 1 drop Q12HR MIRNA Administration Radiology Results: ITS Impressions Chest CT 03/18/24 17:48 IMPRESSION: 1. Right-sided pneumonia with a posterior and lower lung predominance. 2. Material in the right middle lobe and right lower lobe bronchi, which may be mucous plugging or aspirated material. 3. Moderate emphysema. 4. Mild mediastinal lymphadenopathy, likely reactive. Abdomen Ultrasound 03/21/24 16:41 IMPRESSION: No significant abnormality Chest X-Ray 03/28/24 15:23 IMPRESSION: Bilateral pneumonia. Underlying pulmonary edema and fibrotic changes are not excluded. Labs Labs: Laboratory Results - last 24 hr 03/29/24 03/29/24 03/29/24 03:58 09:22 11:46 WBC RBC Hgb Hct MCV MCH MCHC RDW Plt Count MPV Immature Gran % (Auto) Neut % (Auto) Lymph % (Auto) [place] % (Auto) Eos % (Auto) Baso % (Auto) Lymph # (Auto) [place] # (Auto) Eos # (Auto) Baso # (Auto) Abs Immat Gran (auto) Absolute Neuts (auto) Absolute Nucleated RBC Nucleated RBC % Sodium Potassium Chloride Carbon Dioxide Anion Gap BUN Creatinine Estim Creat Clear Calc Estimated GFR Glucose POC Capillary Glucose 134 H Calcium Total Bilirubin AST ALT Alkaline Phosphatase Total Protein Albumin Procalcitonin 0.1 Urine Color Yellow Urine Appearance Turbid H Urine pH 7.5 Ur Specific [place] 1.016 Urine Protein 1+ H Urine Glucose (UA) Negative Urine Ketones Negative Ur Blood (Man) Negative Urine Nitrate Negative Urine Bilirubin Negative Urine Urobilinogen 1.0 Ur Leukocyte Esterase Negative Add Ur Microanalysis Reviewed Urine RBC 0-2 Urine WBC 0-5 Ur Squamous Epith Cells None seen Urine Bacteria None seen Urine Casts 6-10 03/29/24 03/29/24 03/30/24 18:06 23:34 05:20 WBC 8.8 RBC 3.35 L Hgb 10.0 L Hct 31.3 L MCV 93.4 MCH 29.9 MCHC 31.9 L RDW 13.4 Plt Count 398 H MPV 11.0 H Immature Gran % (Auto) 0.6 H Neut % (Auto) 83.4 H Lymph % (Auto) 7.8 L [place] % (Auto) 5.7 Eos % (Auto) 2.2 Baso % (Auto) 0.3 Lymph # (Auto) 0.69 L [place] # (Auto) 0.5 Eos # (Auto) 0.2 Baso # (Auto) 0.0 Abs Immat Gran (auto) 0.05 H Absolute Neuts (auto) 7.3 H Absolute Nucleated RBC 0.000 Nucleated RBC % 0.0 Sodium 137 Potassium 3.4 Chloride 107 Carbon Dioxide 30 Anion Gap 0 L BUN 15 Creatinine 0.70 Estim Creat Clear Calc 82 Estimated GFR > 60 Glucose 123 H POC Capillary Glucose 128 H 138 H Calcium 8.0 L Total Bilirubin 0.4 AST 29 ALT 42 Alkaline Phosphatase 194 H Total Protein 5.0 L Albumin 2.2 L Procalcitonin Urine Color Urine Appearance Urine pH Ur Specific [place] Urine Protein Urine Glucose (UA) Urine Ketones Ur Blood (Man) Urine Nitrate Urine Bilirubin Urine Urobilinogen Ur Leukocyte Esterase Add Ur Microanalysis Urine RBC Urine WBC Ur Squamous Epith Cells Urine Bacteria Urine Casts 12/30/24 06:04 WBC RBC Hgb Hct MCV MCH MCHC RDW Plt Count MPV Immature Gran % (Auto) Neut % (Auto) Lymph % (Auto) [place] % (Auto) Eos % (Auto) Baso % (Auto) Lymph # (Auto) [place] # (Auto) Eos # (Auto) Baso # (Auto) Abs Immat Gran (auto) Absolute Neuts (auto) Absolute Nucleated RBC Nucleated RBC % Sodium Potassium Chloride Carbon Dioxide Anion Gap BUN Creatinine Estim Creat Clear Calc Estimated GFR Glucose POC Capillary Glucose 130 H Calcium Total Bilirubin AST ALT Alkaline Phosphatase Total Protein Albumin Procalcitonin Urine Color Urine Appearance Urine pH Ur Specific [place] Urine Protein Urine Glucose (UA) Urine Ketones Ur Blood (Man) Urine Nitrate Urine Bilirubin Urine Urobilinogen Ur Leukocyte Esterase Add Ur Microanalysis Urine RBC Urine WBC Ur Squamous Epith Cells Urine Bacteria Urine Casts Quality VTE Prophylaxis VTE prophylaxis: pharmacologic ordered Hospitalist MIPS Advance Care Plan I have confirmed that the patient's Advanced Care Plan is present, code status is documented, or surrogate decision maker is listed in patient medical record.: Yes Medication Reconciliation I have utilized all available resources to obtain, update and review the patients current medications (includes all prescriptions, OTC, herbals, cannabis, and nutritional supplements).: Yes
[2024-03-30] MEDS: ASPIRIN 81 MG CHEWABLE TABLET FEED TUBE (10:24)
[2024-03-30] MEDS: CYANOCOBALAMIN 1,000 MCG TABLET 1000 MCG FEED TUBE (10:24)
[2024-03-30] MEDS: hydrOXYzine pamoate 25 MG CAPSULE FEED TUBE ×2 (10:24→22:19)
[2024-03-30] MEDS: SACCHAROMYCES BOULARDII 250 MG CAPSULE FEED TUBE ×2 (10:24→17:22)
[2024-03-30] MEDS: PANTOPRAZOLE SODIUM IV 40 MG VIAL IV PUSH ×2 (10:25→22:04)
[2024-03-30] MEDS: FLUTICASONE PROPIONATE 0.05% NA SPR 16 GM BTL (*BKC) 2 SPRAY NASAL (10:25)
[2024-03-30] MEDS: DOCUSATE SODIUM LIQ 100 MG/10 ML UDC FEED TUBE (10:25)
[2024-03-30] MEDS: IPRATROPIUM NASAL SPRAY 0.03% 15 ML BOTTLE 2 SPRAY NASAL ×2 (10:25→17:27)
[2024-03-30] MEDS: CHLORHEXIDINE GLUCONATE 0.12% ORAL RINSE 473 ML BTL (*BKC) 15 ML SWISH/SPIT ×2 (10:26→17:28)
[2024-03-30] MEDS: SALIVA SUBSTITUTE RINSE 473 ML BOTTLE 10 ML PO ×3 (10:26→22:05)
[2024-03-30] MEDS: TIMOLOL MALEATE 0.5% OP SOLN 5 ML BOTTLE 1 DROP EACH EYE ×2 (10:27→22:06)
[2024-03-30] MEDS: HEPARIN SODIUM 5,000 UNITS/ML VIAL 5000 UNITS SUB-Q ×2 (10:29→22:04)
--- NOTE | 2024-03-30 11:12 | PCRCNOTE ---
Found pt on 4L from 7L this morning . Saturation was 60% on 4L,pt's saturation earlier today was at 92% on 7L. DEODORIZER OPERATOR had titrated oxygen earlier this morning without making therapist aware . Pt's oxygen was increased to 15L due to low oxygen saturation. Pt's saturation is 92% on 15L high flow cannula. Scheduled treatment being given at this time.
[2024-03-30 12:21] LABS: Glucose Point of Care 126 mg/dl (65-105)
[2024-03-30] MEDS: ATORVASTATIN 20 MG TABLET FEED TUBE (17:22)
[2024-03-30] MEDS: DOXAZOSIN MESYLATE 1 MG TABLET FEED TUBE (17:23)
--- NOTE | 2024-03-30 17:56 | P.PNPL_ITS ---
Progress Note: A&P Assessment and Plan (1) Aspiration pneumonia: Qualifiers: Aspiration pneumonia type: unspecified Laterality: right Lung location: unspecified part of lung Qualified Code(s): J69.0 - Pneumonitis due to inhalation of food and vomit Code(s): J69.0 - Pneumonitis due to inhalation of food and vomit Status: Acute Assessment and Plan: Patient with a PEG tube on tube feedings and NPO at the custodial with emesis on 03/18/24 followed by aspiration at the custodial. He required suctioning at the custodial in supplemental oxygen. Chest x-ray in the emergency department showed right-sided infiltrates and CT scan of the chest showed posterior right upper lobe, right lower lobe and infiltrates in the right middle lobe all in a dependent area consistent with aspiration. he required 6 L in the emergency department. 03/19/24: When I saw the patient today is nonverbal, he does not cough when I requested him to cough. He was on 4 L nasal cannula with saturations 98%. I decreased him to room air and after 8 minutes his saturations remain 96%. I did use yankour and cleared oral secretions from his mouth. He had no upper airway rhonchorous sounds. His white blood cell count is 11.6, his creatinine is 1.2 with a BUN of 40, his MRSA nasal swab PCR is negative. plan: The patient did aspirate. He is on tube feedings and NPO so he would have not aspirated any solid food particles. He had debris in right lower lobe and right middle lobe airways on his CT scan likely mucous. Chest x-ray today demonstrates no lobar collapse. Patient's oxygenation has improved. There is no need for bronchoscopy at this time. Patient was empirically started on vancomycin, ceftriaxone and azithromycin. His MRSA nasal swab is negative. Will discontinue vancomycin, ceftriaxone and azithromyci nand change the patient to unasyn 3 gm Q 6 hours. Will continue DuoNebs Q 6 as a history of COPD with mild apical predominant centrilobular emphysema on a CT scan of the chest. 03/20/24: patient is nonverbal attempting to mouth words. Patient had rhonchorous breath sounds when I entered the room. I asked him to cough and he did not follow commands. I used a Yankauer and suction thick secretions from the back of his oropharynx. Room air saturations 97%. White blood cell count 8.2, creatinine 0.8, afebrile. Weight is 65 kg. patient is clinically stable. He is now on room air. Leukocytosis has i mproved. He is afebrile. Plan: Patient is day 3 total antibiotics, day 2 Unasyn. Clinically he is has improved. It should be noted that the patient cannot clear his oral secretions and he is at high risk for subsequent aspiration events. I will check a chest x-ray on 03/21 and if this is stable would be ready for discharge on these pulmonary medications. Augmentin suspension 400 -57/5 ml at 10 ml BID x3 days (to finish a 7 day course of total antibiotics). 03/21/24: Patient is nonverbal, attempts to mouth words but does not follow any commands. Rhonchorous upper airway sounds with an inability to cough to command and inability to clear his secretions. Yankauer again used with suctioning of secretions from the back of his mouth. Room air saturation 96%. Patient had a temperature to 99.9 this morning. Chest x-ray shows worsening right mid and lower lung infiltrates and increased left lower lung infiltrates. Plan: Patient with a low-grade temperature this morning and chest x-ray with worsening right middle and lower and left lower lobe infiltrates. Oxygenation remained stable on room air. Etiology for low-grade fever and worsening infiltrates include continued aspiration events, at this time will follow patient's temperature curve and I will not change his antibiotics and continue Unasyn day 3. Total antibiotics is day 4. Will send testing for additional etiologies of low-grade fever (LFTs, lipase). Spoke with the nurse. The patient has had formed bowel movements. will repeat chest x-ray on 03/22/2024. 03/22/24: Nonverbal, unable to cough up secretions. Patient has episodes of inability to cough secretions with hypoxia. After suctioning he requires no oxygen. When I enter the room he was on 2 L nasal cannula saturations 100. I changed him to room air and after 8 minutes his saturations were 97%. White blood cell count 5.9, creatinine 0.8. Procalcitonin 0.8. He has been afebrile. Chest x-ray with continued right lung infiltrates worsening infiltrates left lower lobe. Plan: Patient remains afebrile, no leukocytosis, procalcitonin decreased today it is 0.8, chest x-ray with continued right and worsening left lower lobe infiltrate. I suspect his left lower lobe infiltrates are related to retained and/or aspirated secretions, atelectasis rather than a new bacterial pneumonia. Total antibiotics day 5, Unasyn day 4. As predicted he has continued inability to clear secretions with hypoxia that is transient and resolved after he has deep suctioning to remove secretions. Unfortunately this issue is a continuation of his dementia and I suspect this will continue to happen in the future. I do not favor using anticholinergic agents to dry up his secretions as this may result in worsening mucus plugging and lobar collapse. I will continue duo nebulizers Q 4 hours. I would not performed Vest therapy with the patient's G-tube and history of him removing the G-tube. We will need to determine if Anita Dee can provide the patient with schedule deep suctioning as this will be required on discharge if the family wishes for continued care in an attempt to prevent recurrent mucus plugging, aspiration and hospitalization. 03/29/24; He is in a similar condition as he was when Dr Garcia last saw him Mar 22. He is unable to cough expectorate secretions from his airway. He aspirates saliva, gets fed through a peg however still has recurrent aspiration which is not prevented by having his feedings bypassing his mouth. This saturation is not going to improve. His condition is associated with a poor prognosis especially with impaired cognition. 03/30/24 Discussed with his sister, Zoe, by phone. Explained his overall poor progniosis, and he is worsening going to IMU. SHe will let me know when she is here to visit. I plan to talk with her in person. Subjective Date/time seen: 03/30/24 17:56 Interval history: Interval history: 03/19/2024: This is a new pulmonary consult for aspiration pneumonia. 79-year-old with a history of dementia, CVA, coronary artery disease, CKD, status post PEG 11/13/2023 on tube feedings at the custodial. Regarding his dementia patient is nonverbal and to my exam today did not follow any verbal commands. Patient has had multiple emergency room department visits and hospitalizations for PEG tube removal as he pulls this out at the custodial. On 03/18/2024 the patient vomited at the custodial with a witnessed aspiration. They attempted to clear his airway but he was hypoxic and they gave him supplemental oxygen and he was transferred to the emergency department. In the emergency department he had copious secretions with difficulty coughing. Deep suction cleared his secretions and improved his respiratory status. He required 6 L nasal cannula in the emergency department with saturations 96%. Blood pressure 120/81, heart rate 102. White blood cell count 9.7, creatinine 1.2, BUN 47, COVID influenza and RSV RT PCR studies negative. Chest x-ray showed right lung infiltrate. CT of the chest showed posterior right upper lobe, right lower lobe infiltrates, right middle lobe infiltrates as well with some debris in the right middle lobe and right lower lobe. Patient was admitted for aspiration pneumonia and started on ceftriaxone, azithromycin and given vancomycin. DuoNebs were initiated. 03/19/2024: the daytime nurse told me that he had to be suctioned with a Yankauer 2 or 3 times throughout the night and also had deep suctioning through the nose through the night. She related there was a small amount of blood. When I saw the patient today is nonverbal, he does not cough when I requested him to cough. He was on 4 L nasal cannula with saturations 98%. I decreased him to room air and after 8 minutes his saturations remain 96%. I did use yankour and cleared oral secretions from his mouth. He had no upper airway rhonchorous sounds. His white blood cell count is 11.6, his creatinine is 1.2 with a BUN of 40, his MRSA nasal swab PCR is negative. 03/20/24: patient is nonverbal attempting to mouth words. Patient had rhonchorous breath sounds when I entered the room. I asked him to cough and he did not follow commands. I used a Yankauer and suction thick secretions from the back of his oropharynx. Room air saturations 97%. White blood cell count 8.2, creatinine 0.8, afebrile. Weight is 65 kg. 03/21/24: Patient is nonverbal, attempts to mouth words but does not follow any commands. rhonchorous upper airway sounds with an inability to cough to command and inability to clear his secretions. Yankauer again used with suctioning of secretions from the back of his mouth. Room air saturation 96%. Patient had a temperature to 99.9 this morning. Chest x-ray shows worsening right mid and lower lung infiltrates and increased left lower lung infiltrates. 03/22/24: Nonverbal, unable to cough up secretions. Patient has episodes of inability to cough secretions with hypoxia. After suctioning he requires no oxygen. When I enter the room he was on 2 L nasal cannula saturations 100. I changed him to room air and after 8 minutes his saturations were 97%. White blood cell count 5.9, creatinine 0.8. Procalcitonin 0.8. He has been afebrile. Chest x-ray with continued right lung infiltrates worsening infiltrates left lower lobe. 03/29/2024; Patient is seen again for aspiration. He is alert, non-verbal, has harsh moist noises from his mouth. He has ineffective cough, cannot expectorate secretions. He has dementia, has pulled his PEG out. When he does not get mucus plugging, his saturation is normal. He is not able to keep his airway clear without intermittent suctioning. He is on 4-5 L NC and saturation is 90-93%. 03/30/24; O2 need is higher, now on Airvo. He continues to have aspiration, and he is not able to protect his airway. I called his sister, Zoe, and talked about his overall prognosis being poor, given his age and poor level of responsi veness, and debility. DATA: EXAMINATION:CT diagnostic chest wo con DATE: 03/18/2024 17:46 INDICATION: Pneumonia. Abnormal chest radiographs. TECHNIQUE: Computed tomography (CT) of the chest was performed without intravenous contrast. Automated exposure control and iterative reconstruction technique were employed. The dose-length product (DLP) was 157.84 mGy-cm. COMPARISON: Chest single view 03/18/2024 FINDINGS: There is moderate emphysema. There is mild scarring at left lung apex. There are airspace opacities in all right lung lobes with a posterior lower lung predominance, consistent with pneumonia. Calcified bilateral lung nodules and calcified right hilar lymph nodes are consistent with old granulomatous disease. There is a 5 mm nodule in left upper lobe, likely benign. There is material in the bronchi in right middle lobe and right lower lobe. There is mild dependent atelectasis in left lower lobe. No pleural effusion. The heart size is normal. No pericardial effusion. There is mild mediastinal lymphadenopathy. A gastrostomy tube is partially visualized. There is a chronic compression fracture of L2. There are bridging endplate osteophytes at multiple levels in the spine, consistent with diffuse idiopathic skeletal hyperostosis (DISH). IMPRESSION: 1. Right-sided pneumonia with a posterior and lower lung predominance. 2. Material in the right middle lobe and right lower lobe bronchi, which may be mucous plugging or aspirated material. 3. Moderate emphysema. 4. Mild mediastinal lymphadenopathy, likely reactive. Review of Systems Review of Systems: ROS unobtainable: Yes unobtainable due to medical condition Exam Narrative: GEN: Alert, oriented, not in distress. He can track visually, cannot follow commands. HEENT: pupils are equal, EOMI, symmetrical face; oral membranes moist, gurgling noises NECK: Trachea is midline CHEST: Equal air entry, symmetric excursion, bilateral rhonchi CV: Regular S1S2 no m/g/r ABD : (+) bowel sounds Extremities : no clubbing, cyanosis, or edema PSYCH: cannot assess thought because he is non-verbal; gait is not tested Objective Data Vital Signs Vital Signs: Vital Signs - 24 hr 03/29/24 20:00 03/29/24 20:00 03/29/24 20:02 Temperature Pulse Rate 103 H 103 H Respiratory Rate 20 Blood Pressure Pulse Oximetry 90 Oxygen Delivery Nasal Cannula Oxygen Flow Rate 6 Fraction of Inspired Oxygen 03/29/24 20:04 03/29/24 20:12 03/29/24 20:20 Temperature 37.0 C Pulse Rate 110 H 101 H Respiratory Rate 20 18 Blood Pressure 136/77 Pulse Oximetry 89 L 90 Oxygen Delivery Nasal Cannula Oxygen Flow Rate 5 Fraction of Inspired Oxygen 03/30/24 00:00 03/30/24 04:00 03/30/24 04:55 Temperature Pulse Rate 91 79 Respiratory Rate Blood Pressure Pulse Oximetry 88 L Oxygen Delivery Nasal Cannula Oxygen Flow Rate 6 Fraction of Inspired Oxygen 03/30/24 04:55 03/30/24 04:58 03/30/24 05:02 Temperature 36.4 C Pulse Rate 89 69 Respiratory Rate 20 18 Blood Pressure 120/97 H Pulse Oximetry 93 90 Oxygen Delivery High Flow Nasal Cannula Oxygen Flow Rate 7 Fraction of Inspired Oxygen 03/30/24 05:12 03/30/24 07:25 03/30/24 07:25 Temperature Pulse Rate 88 85 Respiratory Rate 20 20 Blood Pressure Pulse Oximetry 92 Oxygen Delivery High Flow Nasal Cannula Oxygen Flow Rate 7 Fraction of Inspired Oxygen 03/30/24 07:33 03/30/24 10:30 03/30/24 10:30 Temperature Pulse Rate 89 103 H Respiratory Rate 20 Blood Pressure Pulse Oximetry 91 Oxygen Delivery High Flow Nasal Cannula Oxygen Flow Rate 15 Fraction of Inspired Oxygen 03/30/24 10:57 03/30/24 11:06 03/30/24 11:10 Temperature Pulse Rate 96 Respiratory Rate 20 Blood Pressure Pulse Oximetry 60 L 91 Oxygen Delivery High Flow Nasal Cannula High Flow Nasal Cannula Oxygen Flow Rate 4 15 Fraction of Inspired Oxygen 03/30/24 11:22 03/30/24 14:16 03/30/24 14:38 Temperature 36.6 C Pulse Rate 103 H 90 Respiratory Rate 20 18 Blood Pressure 138/70 Pulse Oximetry 96 90 Oxygen Delivery High Flow Nasal Cannula Oxygen Flow Rate 15 Fraction of Inspired Oxygen 03/30/24 14:45 03/30/24 15:28 03/30/24 15:29 Temperature Pulse Rate 90 91 90 Respiratory Rate 24 H 24 H 23 H Blood Pressure Pulse Oximetry 90 93 Oxygen Delivery High Flow Therapy with Na High Flow Therapy with Na Oxygen Flow Rate 35 35 Fraction of Inspired Oxygen 80 80 03/30/24 15:37 Temperature Pulse Rate 89 Respiratory Rate 22 H Blood Pressure Pulse Oximetry Oxygen Delivery Oxygen Flow Rate Fraction of Inspired Oxygen Intake/Output Intake/Output: Intake & Output 03/27/24 03/28/24 03/29/24 03/30/24 23:59 23:59 23:59 23:59 Intake Total 2684 4598 2275 200 Output Total 2200 2950 2700 800 Balance 364 226 -[phone] -609 Meds/Results Medications: Active Medications Generic Name Dose Route Start Last Admin Trade Name Freq PRN Reason Stop Dose Admin Acetaminophen 650 mg 03/24/24 22:31 03/28/24 17:04 Acetaminophen Elixir 325 Mg/10.15 Ml Udc FEED TUBE 650 mg Q4H PRN Administration Mild Pain (1-3) or Fever Albuterol/Ipratropium 3 ml 03/19/24 16:00 03/30/24 15:29 Ipratropium 0.5 Mg/Albuterol Sulfate 2.5 Mg Ampul.Neb 3 Ml INHALATION 3 ml Q4HRT MIRNA Administration Aspirin 81 mg 03/20/24 09:00 03/30/24 10:24 Aspirin 81 Mg Chewable Tablet FEED TUBE 81 mg DAILY MIRNA Administration Atorvastatin Calcium 20 mg 03/19/24 18:00 03/30/24 17:22 Atorvastatin 20 Mg Tablet FEED TUBE 20 mg QPM MIRNA Administration Bisacodyl 10 mg 03/18/24 22:33 Bisacodyl 10 Mg Suppository RECTAL DAILY PRN Constipation Bisacodyl 10 mg 03/21/24 09:00 03/30/24 10:28 Bisacodyl 10 Mg Suppository RECTAL Not Given QAM MIRNA Chlorhexidine Gluconate 15 ml 03/21/24 09:00 03/30/24 17:28 Chlorhexidine Gluconate 0.12% Oral Rinse 473 Ml Btl (*Bkc) SWISH/SPIT 15 ml BID MIRNA Administration Cyanocobalamin 1,000 mcg 03/19/24 09:00 03/30/24 10:24 Cyanocobalamin 1,000 Mcg Tablet FEED TUBE 1,000 mcg DAILY MIRNA Administration Docusate Sodium 100 mg 03/19/24 09:00 03/30/24 10:25 Docusate Sodium Liq 100 Mg/10 Ml Udc FEED TUBE 100 mg Q12HR MIRNA Administration Donepezil HCl 5 mg 03/19/24 21:00 03/29/24 20:47 Donepezil Hcl 5 Mg Tablet PO 5 mg HS MIRNA Administration Doxazosin Mesylate 1 mg 03/19/24 18:00 03/30/24 17:23 Doxazosin Mesylate 1 Mg Tablet FEED TUBE 1 mg QPM MIRNA Administration Fluticasone Propionate 2 spray 03/22/24 11:45 03/30/24 10:25 Fluticasone Propionate 0.05% Na Spr 16 Gm Btl (*Bkc) NASAL 2 spray QAM MIRNA Administration Heparin Sodium (Porcine) 5,000 units 03/19/24 09:00 03/30/24 10:29 Heparin Sodium 5,000 Units/Ml Vial SUB-Q 5,000 units Q12HR MIRNA Administration Hydroxyzine Pamoate 25 mg 03/18/24 22:45 03/30/24 10:24 Hydroxyzine Pamoate 25 Mg Capsule FEED TUBE 25 mg Q12HR MIRNA Administration Meropenem 1 gm in 100 mls @ 200 mls/hr 03/23/24 18:00 03/30/24 17:48 IVPB 04/01/24 23:59 200 mls/hr Q8H MIRNA Administration Ipratropium [place] 2 spray 03/22/24 13:00 03/30/24 17:27 Ipratropium Nasal [place] 0.03% 15 Ml Bottle NASAL 2 spray TID MIRNA Administration Loratadine 10 mg 03/18/24 22:40 03/24/24 09:04 Loratadine 10 Mg Tablet FEED TUBE 10 mg DAILY PRN Administration Congestion Magnesium Hydroxide 30 ml 03/18/24 22:33 Magnesium Hydroxide Susp 30 Ml Udc FEED TUBE DAILY PRN Constipation Pantoprazole Sodium 40 mg 03/22/24 09:00 03/30/24 10:25 Pantoprazole Sodium Iv 40 Mg Vial IV PUSH 40 mg Q12HR MIRNA Administration Saccharomyces Boulardii 250 mg 03/19/24 09:00 03/30/24 17:22 Saccharomyces Boulardii 250 Mg Capsule FEED TUBE 250 mg BID MIRNA Administration Saliva Substitute 10 ml 03/20/24 13:00 03/30/24 17:28 Saliva Substitute Rinse 473 Ml Bottle PO 10 ml QID MIRNA Administration Timolol Maleate 1 drop 03/20/24 09:50 03/30/24 10:27 Timolol Maleate 0.5% Op Soln 5 Ml Bottle EACH EYE 1 drop Q12HR MIRNA Administration Radiology Results: ITS Impressions Chest CT 03/18/24 17:48 IMPRESSION: 1. Right-sided pneumonia with a posterior and lower lung predominance. 2. Material in the right middle lobe and right lower lobe bronchi, which may be mucous plugging or aspirated material. 3. Moderate emphysema. 4. Mild mediastinal lymphadenopathy, likely reactive. Abdomen Ultrasound 03/21/24 16:41 IMPRESSION: No significant abnormality Chest X-Ray 03/28/24 15:23 IMPRESSION: Bilateral pneumonia. Underlying pulmonary edema and fibrotic changes are not excluded. Labs Labs: Laboratory Results - last 24 hr 03/29/24 03/29/24 03/30/24 18:06 23:34 05:20 WBC 8.8 RBC 3.35 L Hgb 10.0 L Hct 31.3 L MCV 93.4 MCH 29.9 MCHC 31.9 L RDW 13.4 Plt Count 398 H MPV 11.0 H Immature Gran % (Auto) 0.6 H Neut % (Auto) 83.4 H Lymph % (Auto) 7.8 L [place] % (Auto) 5.7 Eos % (Auto) 2.2 Baso % (Auto) 0.3 Lymph # (Auto) 0.69 L [place] # (Auto) 0.5 Eos # (Auto) 0.2 Baso # (Auto) 0.0 Abs Immat Gran (auto) 0.05 H Absolute Neuts (auto) 7.3 H Absolute Nucleated RBC 0.000 Nucleated RBC % 0.0 Sodium 137 Potassium 3.4 Chloride 107 Carbon Dioxide 30 Anion Gap 0 L BUN 15 Creatinine 0.70 Estim Creat Clear Calc 82 Estimated GFR > 60 Glucose 123 H POC Capillary Glucose 128 H 138 H Calcium 8.0 L Total Bilirubin 0.4 AST 29 ALT 42 Alkaline Phosphatase 194 H Total Protein 5.0 L Albumin 2.2 L 03/30/24 03/30/24 06:04 12:14 WBC RBC Hgb Hct MCV MCH MCHC RDW Plt Count MPV Immature Gran % (Auto) Neut % (Auto) Lymph % (Auto) [place] % (Auto) Eos % (Auto) Baso % (Auto) Lymph # (Auto) [place] # (Auto) Eos # (Auto) Baso # (Auto) Abs Immat Gran (auto) Absolute Neuts (auto) Absolute Nucleated RBC Nucleated RBC % Sodium Potassium Chloride Carbon Dioxide Anion Gap BUN Creatinine Estim Creat Clear Calc Estimated GFR Glucose POC Capillary Glucose 130 H 126 H Calcium Total Bilirubin AST ALT Alkaline Phosphatase Total Protein Albumin
[2024-03-30 18:47] LABS: Glucose Point of Care 132 mg/dl (65-105)
[2024-03-30] MEDS: DONEPEZIL HCL 5 MG TABLET PO (22:04)
[2024-03-30 23:37] LABS: Glucose Point of Care 135 mg/dl (65-105)
[2024-03-31] VITALS (38 sets, daily range): BP systolic 100–139; BP diastolic 52–77; PULSE 76–120; RESP 20–42; TEMP 36.7–38.3; O2SAT 88–99
[2024-03-31] MEDS: IPRATROPIUM 0.5 MG/ALBUTEROL SULFATE 2.5 MG AMPUL.NEB 3 ML INHALATION ×6 (00:52→21:29)
[2024-03-31] MEDS: MEROPENEM 1 GM/NS 100 ML BAG IVPB ×3 (02:53→18:41)
[2024-03-31 05:18] LABS: Alanine Aminotransferase 43 U/L (6-50); Albumin Level 2.2 g/dL (3.5-5.1); Alkaline Phosphatase 194 U/L (38-126); Anion Gap -1 mmol/L (4-12); Aspartate Amino Transferase 31 U/L (17-59); Bilirubin,Total 0.4 mg/dL (0.2-1.3); Blood Urea Nitrogen 15 mg/dL (9-20); Calcium 8.2 mg/dL (8.4-10.2); Carbon Dioxide 31 mmol/L (22-30); Chloride 106 mmol/L (98-107); Estimated CRCL calculation 82 ml/min; Estimated Glomerular Filt Rate > 60; Glucose 118 mg/dL (65-110); Potassium 3.3 mmol/L (3.4-5.0); Sodium 136 mmol/L (137-145)
[2024-03-31] MEDS: HEPARIN SODIUM 5,000 UNITS/ML VIAL 5000 UNITS SUB-Q ×2 (08:30→20:59)
[2024-03-31] MEDS: ASPIRIN 81 MG CHEWABLE TABLET FEED TUBE (08:30)
[2024-03-31] MEDS: CYANOCOBALAMIN 1,000 MCG TABLET 1000 MCG FEED TUBE (08:30)
[2024-03-31] MEDS: PANTOPRAZOLE SODIUM IV 40 MG VIAL IV PUSH ×2 (08:30→20:59)
[2024-03-31] MEDS: DOCUSATE SODIUM LIQ 100 MG/10 ML UDC FEED TUBE ×2 (08:30→20:59)
[2024-03-31] MEDS: SACCHAROMYCES BOULARDII 250 MG CAPSULE FEED TUBE ×2 (08:30→17:11)
[2024-03-31] MEDS: hydrOXYzine pamoate 25 MG CAPSULE FEED TUBE ×2 (08:30→20:59)
[2024-03-31] MEDS: SALIVA SUBSTITUTE RINSE 473 ML BOTTLE 10 ML PO ×4 (08:31→21:00)
[2024-03-31] MEDS: TIMOLOL MALEATE 0.5% OP SOLN 5 ML BOTTLE 1 DROP EACH EYE ×2 (08:31→20:59)
[2024-03-31] MEDS: FLUTICASONE PROPIONATE 0.05% NA SPR 16 GM BTL (*BKC) 2 SPRAY NASAL (08:31)
[2024-03-31] MEDS: CHLORHEXIDINE GLUCONATE 0.12% ORAL RINSE 473 ML BTL (*BKC) 15 ML SWISH/SPIT ×2 (08:31→17:11)
[2024-03-31] MEDS: IPRATROPIUM NASAL SPRAY 0.03% 15 ML BOTTLE 2 SPRAY NASAL ×3 (08:32→18:00)
[2024-03-31] MEDS: ACETAMINOPHEN ELIXIR 325 MG/10.15 ML UDC 650 MG FEED TUBE (08:46)
--- NOTE | 2024-03-31 11:23 | P.PNIM_ITS ---
Progress Note: A&P Assessment and Plan (1) Sepsis: Qualifiers: Sepsis type: sepsis due to unspecified organism Sepsis acute organ dysfunction status: with acute organ dysfunction Severe sepsis acute organ dysfunction type: acute respiratory failure Acute respiratory failure type: with hypoxia Severe sepsis shock status: without septic shock Qualified Code(s): A41.9 - Sepsis, unspecified organism; R65.20 - Severe sepsis without septic shock; J96.01 - Acute respiratory failure with hypoxia Code(s): A41.9 - Sepsis, unspecified organism Status: Resolved Assessment and Plan: Sepsis Low grade temp Patient met sepsis criteria on admission with tachycardia, tachypnea, hypotenision, CXR consistent with PNA, -- Repeat CXR 03/28: Bilateral pneumonia. Underlying pulmonary edema and fibrotic changes are not excluded -- Blood cultures NGTD. -- Temp 101 this AM. -- BCX2- NGTD, -- Urine culture negative, -- WBC's wnl. -- Currently on Meropenem. -- Vanc discontinued with negative MRSA. -- Seen by Operations Advisor. -- Continue current abx treatment. (2) Aspiration pneumonia: Qualifiers: Aspiration pneumonia type: unspecified Laterality: right Lung location: unspecified part of lung Qualified Code(s): J69.0 - Pneumonitis due to inhalation of food and vomit Code(s): J69.0 - Pneumonitis due to inhalation of food and vomit Status: Acute Assessment and Plan: Treating aspiration pneumonia. Had an episode of emesis on presentation. 03/22 Chest x-ray Airspace opacities in right mid and lower lung zones and left lower lung zone with mild worsening on the left, consistent with pneumonia. -- Repeat CXR; Bilateral pneumonia. Underlying pulmonary edema and fibrotic changes are not excluded. -- Previously on Unasyn, now on Meropenem. -- Now on AVAPS with FiO2 80 %. -- Continue oral suctioning PRN and nasal tracheal PRN. -- Continue aspiration precautions. -- Other mgt as # 1 above. (3) Acute hypoxemic respiratory failure: Code(s): J96.01 - Acute respiratory failure with hypoxia Status: Acute Assessment and Plan: Acute hypoxic respiratory failure Aspiration pneumonia --Currently on Meropenem. -- Vancomycin discontinued with negative MRSA PCR. --Worsening infiltrates on chest x-ray and fever episode this AM. --Repeat CXR 03/28; Bilateral pneumonia. Underlying pulmonary edema and fibrotic changes are not excluded. -- Likely due to inability to cough up secretions. -- Now on AVAPS with FiO2 80%. -- Seen by Pulmonary. --Aspiration precautions, elevate HOB. --NPO. Artificial saliva, frequent oral care. Continue peridex --Continue suctioning prn --Continue flonase and ipatropium nasal spray. (4) COPD (chronic obstructive pulmonary disease): Qualifiers: COPD type: COPD with acute lower respiratory infection Qualified Code(s): J44.0 - Chronic obstructive pulmonary disease with (acute) lower respiratory infection Code(s): J44.9 - Chronic obstructive pulmonary disease, unspecified Status: Acute Assessment and Plan: * COPD. * Appears compensated. * Continue scheduled duonebs. * Continue supplemental O2 now on AVAPS FiO2 80%. (5) AMS (altered mental status): Qualifiers: Altered mental status type: unspecified Qualified Code(s): R41.82 - Altered mental status, unspecified Code(s): R41.82 - Altered mental status, unspecified Status: Chronic Assessment and Plan: Seems at baseline. Hx dementia (6) Transaminitis: Code(s): R74.01 - Elevation of levels of liver transaminase levels Status: Chronic Assessment and Plan: Transaminitis * Chronic and trending down. * Possibly related to infection. 03/21 US abdomen no gallstones or gallbladder wall thickening -- No further w/u for now. (7) Dementia: Qualifiers: Dementia type: unspecified type Dementia severity: severe Dementia behavioral or psychological symptom: unspecified whether behavioral, psychotic, or mood disturbance or anxiety Qualified Code(s): F03.C0 - Unspecified dementia, severe, without behavioral disturbance, psychotic disturbance, mood disturbance, and anxiety Code(s): F03.90 - Unspecified dementia, unspecified severity, without behavioral disturbance, psychotic disturbance, mood disturbance, and anxiety Status: Chronic Assessment and Plan: Dementia Pt with G-tube secondary to malnutrition. Appears to be tolerating tube feeds well. Continue supportive care. Turn q2. Respiratory failure likely related to dementia, with inability to clear secre tions. (8) Anemia: Code(s): D64.9 - Anemia, unspecified Status: Acute Assessment and Plan: --Hgb appears stable. --Seen by GI. -- Had EGD x2 last few months when G-tube was placed without major findings. -- No need to repeat endoscopic evaluation, anemia probably multifactorial per GI. (9) Hypokalemia: Code(s): E87.6 - Hypokalemia Status: Acute Assessment and Plan: * Continue to replete as needed. Plan Discussed patient condition with patient HARSHAD (sister) Zoe, including persistent PNA and increasing O2 demand. Discussed patient code status with sister, including chest compressions and intubation. Pt DERRICKA stated that she'll contact pt sons and other family and come to the hospital then decide long-term treatment plan thereafter. Time Spent With Patient Time with patient: 25 - 35 minutes Subjective Date/time seen: 03/31/24 11:23 Patient non-verbal on bedrest. Interval history: Patient calm on bedrest and looks comfortable, in no acute distress. Review of Systems Review of Systems: ROS unobtainable: Yes unobtainable due to medical condition (Dementia), unobtainable due to mental status and other (Patient non-verbal) Exam Narrative: CONSTITUTIONAL: Nonverbal, sitting up on bedrest with intermittent shallow coughs. HENMT: Atraumatic and normocephalic. Poor oral hygiene. Dry MM. NECK: Limited range of motion RESPIRATORY: Coarse generally, slightly congested. Shallow coughs with poor inspiratory effort. CARDIO: RRR, no murmurs. GI: Soft, NT, BS present x4 quads without any distention, PEG-Tube intact. : Incontinent. SKIN: Stage 1 wound x2 to the right hip. Dressing in place. Small skin tear also to right upper thigh posteriorly. NEURO: Hung LE weakness. Objective Data Vital Signs Vital Signs: Vital Signs - 24 hr 03/30/24 12:00 03/30/24 14:16 03/30/24 14:38 Temperature 97.8 F Pulse Rate 104 H 90 Respiratory Rate 18 Blood Pressure 138/70 Pulse Oximetry 96 90 Oxygen Delivery High Flow Nasal Cannula Oxygen Flow Rate 15 Fraction of Inspired Oxygen 03/30/24 14:45 03/30/24 15:28 03/30/24 15:29 Temperature Pulse Rate 90 91 90 Respiratory Rate 24 H 24 H 23 H Blood Pressure Pulse Oximetry 90 93 Oxygen Delivery High Flow Therapy with Na High Flow Therapy with Na Oxygen Flow Rate 35 35 Fraction of Inspired Oxygen 80 80 03/30/24 15:37 03/30/24 16:00 03/30/24 19:00 Temperature Pulse Rate 89 91 Respiratory Rate 22 H Blood Pressure Pulse Oximetry 97 Oxygen Delivery High Flow Therapy with Na Oxygen Flow Rate 35 Fraction of Inspired Oxygen 80 03/30/24 20:00 03/30/24 20:04 03/30/24 20:13 Temperature Pulse Rate 92 99 89 Respiratory Rate 20 22 H Blood Pressure Pulse Oximetry Oxygen Delivery Oxygen Flow Rate Fraction of Inspired Oxygen 03/30/24 20:30 03/30/24 22:00 03/30/24 23:43 Temperature 98.3 F Pulse Rate 90 78 Respiratory Rate 22 H Blood Pressure 133/71 Pulse Oximetry 92 99 Oxygen Delivery High Flow Therapy with Na Oxygen Flow Rate 35 Fraction of Inspired Oxygen 80 03/31/24 00:00 03/31/24 00:00 03/31/24 00:40 Temperature Pulse Rate 82 97 Respiratory Rate 22 H Blood Pressure Pulse Oximetry 95 Oxygen Delivery High Flow Therapy with Na Oxygen Flow Rate 35 Fraction of Inspired Oxygen 80 03/31/24 00:50 03/31/24 02:00 03/31/24 04:00 Temperature Pulse Rate 88 85 Respiratory Rate 20 Blood Pressure Pulse Oximetry 94 Oxygen Delivery High Flow Therapy with Na Oxygen Flow Rate 35 Fraction of Inspired Oxygen 80 03/31/24 04:00 03/31/24 04:11 03/31/24 04:25 Temperature Pulse Rate 98 91 112 H Respiratory Rate 22 H 22 H Blood Pressure Pulse Oximetry Oxygen Delivery Oxygen Flow Rate Fraction of Inspired Oxygen 03/31/24 04:34 03/31/24 06:00 03/31/24 07:39 Temperature 98.5 F 100.1 F H Pulse Rate 95 113 H 113 H Respiratory Rate 23 H 30 H Blood Pressure 135/77 139/77 Pulse Oximetry 94 91 Oxygen Delivery Oxygen Flow Rate Fraction of Inspired Oxygen 03/31/24 08:00 03/31/24 08:46 03/31/24 09:04 Temperature 101.0 F H Pulse Rate 113 H Respiratory Rate 30 H Blood Pressure Pulse Oximetry 91 94 Oxygen Delivery High Flow Therapy with Na High Flow Therapy with Na Oxygen Flow Rate 35 35 Fraction of Inspired Oxygen 80 80 03/31/24 09:04 03/31/24 09:15 03/31/24 10:35 Temperature 98.7 F Pulse Rate 104 H 96 Respiratory Rate 28 H 26 H Blood Pressure Pulse Oximetry Oxygen Delivery Oxygen Flow Rate Fraction of Inspired Oxygen Intake/Output Intake/Output: Intake & Output 03/28/24 03/29/24 03/30/24 03/31/24 23:59 23:59 23:59 23:59 Intake Total 3588 2275 300 1827 Output Total 2950 2700 800 700 Balance 586 -443 -691 8706 Meds/Results Medications: Active Medications Generic Name Dose Route Start Last Admin Trade Name Freq PRN Reason Stop Dose Admin Acetaminophen 650 mg 03/24/24 22:31 03/31/24 08:46 Acetaminophen Elixir 325 Mg/10.15 Ml Udc FEED TUBE 650 mg Q4H PRN Administration Mild Pain (1-3) or Fever Albuterol/Ipratropium 3 ml 03/19/24 16:00 03/31/24 11:20 Ipratropium 0.5 Mg/Albuterol Sulfate 2.5 Mg Ampul.Neb 3 Ml INHALATION 3 ml Q4HRT MIRNA Administration Aspirin 81 mg 03/20/24 09:00 03/31/24 08:30 Aspirin 81 Mg Chewable Tablet FEED TUBE 81 mg DAILY MIRNA Administration Atorvastatin Calcium 20 mg 03/19/24 18:00 03/30/24 17:22 Atorvastatin 20 Mg Tablet FEED TUBE 20 mg QPM MIRNA Administration Bisacodyl 10 mg 03/18/24 22:33 Bisacodyl 10 Mg Suppository RECTAL DAILY PRN Constipation Bisacodyl 10 mg 03/21/24 09:00 03/31/24 08:31 Bisacodyl 10 Mg Suppository RECTAL Not Given QAM MIRNA Chlorhexidine Gluconate 15 ml 03/21/24 09:00 03/31/24 08:31 Chlorhexidine Gluconate 0.12% Oral Rinse 473 Ml Btl (*Bkc) SWISH/SPIT 15 ml BID MIRNA Administration Cyanocobalamin 1,000 mcg 03/19/24 09:00 03/31/24 08:30 Cyanocobalamin 1,000 Mcg Tablet FEED TUBE 1,000 mcg DAILY MIRNA Administration Docusate Sodium 100 mg 03/19/24 09:00 03/31/24 08:30 Docusate Sodium Liq 100 Mg/10 Ml Udc FEED TUBE 100 mg Q12HR MIRNA Administration Donepezil HCl 5 mg 03/19/24 21:00 03/30/24 22:04 Donepezil Hcl 5 Mg Tablet PO 5 mg HS MIRNA Administration Doxazosin Mesylate 1 mg 03/19/24 18:00 03/30/24 17:23 Doxazosin Mesylate 1 Mg Tablet FEED TUBE 1 mg QPM MIRNA Administration Fluticasone Propionate 2 spray 03/22/24 11:45 03/31/24 08:31 Fluticasone Propionate 0.05% Na Spr 16 Gm Btl (*Bkc) NASAL 2 spray QAM MIRNA Administration Heparin Sodium (Porcine) 5,000 units 03/19/24 09:00 03/31/24 08:30 Heparin Sodium 5,000 Units/Ml Vial SUB-Q 5,000 units Q12HR MIRNA Administration Hydroxyzine Pamoate 25 mg 03/18/24 22:45 03/31/24 08:30 Hydroxyzine Pamoate 25 Mg Capsule FEED TUBE 25 mg Q12HR MIRNA Administration Meropenem 1 gm in 100 mls @ 200 mls/hr 03/23/24 18:00 03/31/24 02:53 IVPB 04/01/24 23:59 200 mls/hr Q8H MIRNA Administration Ipratropium [place] 2 spray 03/22/24 13:00 03/31/24 08:32 Ipratropium Nasal Payne 0.03% 15 Ml Bottle NASAL 2 spray TID MIRNA Administration Loratadine 10 mg 03/18/24 22:40 03/24/24 09:04 Loratadine 10 Mg Tablet FEED TUBE 10 mg DAILY PRN Administration Congestion Magnesium Hydroxide 30 ml 03/18/24 22:33 Magnesium Hydroxide Susp 30 Ml Udc FEED TUBE DAILY PRN Constipation Pantoprazole Sodium 40 mg 03/22/24 09:00 03/31/24 08:30 Pantoprazole Sodium Iv 40 Mg Vial IV PUSH 40 mg Q12HR MIRNA Administration Saccharomyces Boulardii 250 mg 03/19/24 09:00 03/31/24 08:30 Saccharomyces Boulardii 250 Mg Capsule FEED TUBE 250 mg BID MIRNA Administration Saliva Substitute 10 ml 03/20/24 13:00 03/31/24 08:31 Saliva Substitute Rinse 473 Ml Bottle PO 10 ml QID MIRNA Administration Timolol Maleate 1 drop 03/20/24 09:50 03/31/24 08:31 Timolol Maleate 0.5% Op Soln 5 Ml Bottle EACH EYE 1 drop Q12HR MIRNA Administration Radiology Results: ITS Impressions Chest CT 03/18/24 17:48 IMPRESSION: 1. Right-sided pneumonia with a posterior and lower lung predominance. 2. Material in the right middle lobe and right lower lobe bronchi, which may be mucous plugging or aspirated material. 3. Moderate emphysema. 4. Mild mediastinal lymphadenopathy, likely reactive. Abdomen Ultrasound 03/21/24 16:41 IMPRESSION: No significant abnormality Chest X-Ray 03/28/24 15:23 IMPRESSION: Bilateral pneumonia. Underlying pulmonary edema and fibrotic changes are not excluded. Labs Labs: Laboratory Results - last 24 hr 03/30/24 03/30/24 03/30/24 12:14 18:45 23:33 Sodium Potassium Chloride Carbon Dioxide Anion Gap BUN Creatinine Estim Creat Clear Calc Estimated GFR Glucose POC Capillary Glucose 126 H 132 H 135 H Calcium Total Bilirubin AST ALT Alkaline Phosphatase Total Protein Albumin 03/31/24 04:32 Sodium 136 L Potassium 3.3 L Chloride 106 Carbon Dioxide 31 H Anion Gap -1 L BUN 15 Creatinine 0.70 Estim Creat Clear Calc 82 Estimated GFR > 60 Glucose 118 H POC Capillary Glucose Calcium 8.2 L Total Bilirubin 0.4 AST 31 ALT 43 Alkaline Phosphatase 194 H Total Protein 5.0 L Albumin 2.2 L Quality VTE Prophylaxis VTE prophylaxis: pharmacologic ordered Hospitalist [facility] Advance Care Plan I have confirmed that the patient's Advanced Care Plan is present, code status is documented, or surrogate decision maker is listed in patient medical record.: Yes Medication Reconciliation I have utilized all available resources to obtain, update and review the patients current medications (includes all prescriptions, OTC, herbals, cannabis, and nutritional supplements).: Yes
[2024-03-31 12:13] LABS: Glucose Point of Care 136 mg/dl (65-105)
[2024-03-31] MEDS: MORPHINE SULFATE (*CRX) 2 MG/ML INJ IV PUSH (12:37)
--- NOTE | 2024-03-31 13:49 | PCNFU ---
Nutrition Follow-Up Complete: Severe Protein Calorie Malnutrition as related to inadequate protein energy intake a evidenced by significant weight loss of 13% (14 ibs) 4 months, severe subcutanoeous fat loss (orbital fat pads) and severe muscle wasting (temporalis, clavicle). Meet estimated nutritional needs - Goal is being met with tube feeding. Continue with same goal Goal: Pt current nutrition is Nepro @ 50 ml/h with 200 ml flushes q 4 hours. Prosource TF 1x per day Nutrition recommendation: No new nutrition recommendations. Continue current tube feeding orders. Agree with orders Last recorded weight is 79.3 kg. Bowel Motility: +4 BMs 03/30/24 Labs Reviewed: Alb 2.2, Na 136, K+ 3.3, Glu 118 Meds Noted: Protonix, meropenem Skin: Stage 1 R hip Additional Notes: Nepro @ 50 ml/h provides 1980 kcal, 89 g protein, 800 ml free water. Prosource TF for additional 90 kcal and 20 g protein. 2060 kcal, 109 g protein, 2000 ml free water per day totals with flushes. Meeting needs with tube feeding @ 26 kcal/kg and 1.4 g protein/kg. Tube feeding is adequate for needs Continue with same orders. Will monitor weight, labs, skin, meds, tube feedings every Saturday and Saturday.
[2024-03-31] MEDS: DOXAZOSIN MESYLATE 1 MG TABLET FEED TUBE (17:11)
[2024-03-31] MEDS: ATORVASTATIN 20 MG TABLET FEED TUBE (17:11)
--- NOTE | 2024-03-31 17:41 | PC.NURSE ---
Notified London Almanzar NP of pt moaning, desating, tachycardic, and labored breathing. RN stated I can use the tylenol that is ordered PRN, but wasn't sure if you would like to try the Morphine again. New order for 1mg Morphine IVP q6h for pain greater than 6.
[2024-03-31] MEDS: MORPHINE SULFATE (*CRX) 2 MG/ML INJ 1 MG IV PUSH (18:00)
[2024-03-31 18:43] LABS: Glucose Point of Care 136 mg/dl (65-105)
[2024-03-31] MEDS: DONEPEZIL HCL 5 MG TABLET PO (20:59)
[2024-03-31 23:41] LABS: Glucose Point of Care 145 mg/dl (65-105)
[2024-04-01] VITALS (27 sets, daily range): BP systolic 100–148; BP diastolic 61–81; PULSE 85–113; RESP 20–30; TEMP 36.8–37.7; O2SAT 92–98
[2024-04-01] MEDS: IPRATROPIUM 0.5 MG/ALBUTEROL SULFATE 2.5 MG AMPUL.NEB 3 ML INHALATION ×8 (00:15→23:53)
[2024-04-01] MEDS: MEROPENEM 1 GM/NS 100 ML BAG IVPB ×3 (01:35→17:32)
[2024-04-01 05:29] LABS: Alanine Aminotransferase 39 U/L (6-50); Albumin Level 2.3 g/dL (3.5-5.1); Alkaline Phosphatase 165 U/L (38-126); Anion Gap -3 mmol/L (4-12); Aspartate Amino Transferase 46 U/L (17-59); Bilirubin,Total 0.5 mg/dL (0.2-1.3); Blood Urea Nitrogen 21 mg/dL (9-20); Calcium 8.4 mg/dL (8.4-10.2); Carbon Dioxide 33 mmol/L (22-30); Chloride 105 mmol/L (98-107); Estimated CRCL calculation 82 ml/min; Estimated Glomerular Filt Rate > 60; Glucose 129 mg/dL (65-110); Sodium 135 mmol/L (137-145)
[2024-04-01] MEDS: ONDANSETRON INJ 4 MG/2 ML VIAL IV PUSH (06:35)
--- NOTE | 2024-04-01 09:45 | P.PNIM_ITS ---
Progress Note: A&P Assessment and Plan (1) Sepsis: Qualifiers: Sepsis type: sepsis due to unspecified organism Sepsis acute organ dysfunction status: with acute organ dysfunction Severe sepsis acute organ dysfunction type: acute respiratory failure Acute respiratory failure type: with hypoxia Severe sepsis shock status: without septic shock Qualified Code(s): A41.9 - Sepsis, unspecified organism; R65.20 - Severe sepsis without septic shock; J96.01 - Acute respiratory failure with hypoxia Code(s): A41.9 - Sepsis, unspecified organism Status: Resolved Assessment and Plan: Sepsis Low grade temp Patient met sepsis criteria on admission with tachycardia, tachypnea, hypotenision, CXR consistent with PNA, -- Repeat CXR 03/28: Bilateral pneumonia. Underlying pulmonary edema and fibrotic changes are not excluded -- Blood cultures NGTD. -- BCX2- NGTD, -- Urine culture negative, -- WBC's wnl. -- Currently on Meropenem. -- Vanc discontinued with negative MRSA. -- Seen by Regional Controller. -- Continue current abx treatment. -- 04/01/24 CXR with continued asymmetric infiltrates, R>L, oxygen requirement up to 45 L or 90% FiO2, remains febrile, continues to deteriorate. (2) Aspiration pneumonia: Qualifiers: Aspiration pneumonia type: unspecified Laterality: right Lung location: unspecified part of lung Qualified Code(s): J69.0 - Pneumonitis due to inhalation of food and vomit Code(s): J69.0 - Pneumonitis due to inhalation of food and vomit Status: Acute Assessment and Plan: Treating aspiration pneumonia. Had an episode of emesis on presentation. 03/22 Chest x-ray Airspace opacities in right mid and lower lung zones and left lower lung zone with mild worsening on the left, consistent with pneumonia. -- Repeat CXR; Bilateral pneumonia. Underlying pulmonary edema and fibrotic changes are not excluded. -- 04/01/24 TF held overnight due to emesis. (3) Acute hypoxemic respiratory failure: Code(s): J96.01 - Acute respiratory failure with hypoxia Status: Acute Assessment and Plan: Acute hypoxic respiratory failure Aspiration pneumonia --Currently on Meropenem. -- Vancomycin discontinued with negative MRSA PCR. --Repeat CXR 03/28; Bilateral pneumonia. Underlying pulmonary edema and fibrotic changes are not excluded. -- Likely due to inability to cough up secretions. -- Seen by Pulmonary. --Aspiration precautions, elevate HOB. --NPO. Artificial saliva, frequent oral care. Continue peridex -- 04/01/24 worsened. (4) COPD (chronic obstructive pulmonary disease): Qualifiers: COPD type: COPD with acute lower respiratory infection Qualified Code(s): J44.0 - Chronic obstructive pulmonary disease with (acute) lower respiratory infection Code(s): J44.9 - Chronic obstructive pulmonary disease, unspecified Status: Acute Assessment and Plan: * COPD. * Appears compensated. * Continue scheduled duonebs. (5) AMS (altered mental status): Qualifiers: Altered mental status type: unspecified Qualified Code(s): R41.82 - Altered mental status, unspecified Code(s): R41.82 - Altered mental status, unspecified Status: Chronic Assessment and Plan: Seems at baseline. Hx dementia (6) Transaminitis: Code(s): R74.01 - Elevation of levels of liver transaminase levels Status: Chronic Assessment and Plan: Transaminitis * Chronic and trending down. * Possibly related to infection. 03/21 US abdomen no gallstones or gallbladder wall thickening -- No further w/u for now. -- Resolved. (7) Dementia: Qualifiers: Dementia type: unspecified type Dementia severity: severe Dementia behavioral or psychological symptom: unspecified whether behavioral, psychotic, or mood disturbance or anxiety Qualified Code(s): F03.C0 - Unspecified dementia, severe, without behavioral disturbance, psychotic disturbance, mood disturbance, and anxiety Code(s): F03.90 - Unspecified dementia, unspecified severity, without behavioral disturbance, psychotic disturbance, mood disturbance, and anxiety Status: Chronic Assessment and Plan: Dementia Pt with G-tube secondary to malnutrition since about 10/2023. Continue supportive care. Turn q2. Respiratory failure likely related to dementia, with inability to clear secretions, chronic aspiration. Prognosis is terminal. (8) Anemia: Code(s): D64.9 - Anemia, unspecified Status: Acute Assessment and Plan: --Hgb appears stable. --Seen by GI. -- Had EGD x2 last few months when G-tube was placed without major findings. -- No need to repeat endoscopic evaluation, anemia probably multifactorial per GI. (9) Hypokalemia: Code(s): E87.6 - Hypokalemia Status: Acute Assessment and Plan: * Continue to replete as needed. Subjective Date/time seen: 04/01/24 09:45 Interval history: Unable to provide hx. Review of Systems Review of Systems: ROS unobtainable: Yes unobtainable due to medical condition Exam Narrative: CONSTITUTIONAL: Nonverbal, moaning intermittent, resistant to exam. HENMT: Atraumatic and normocephalic. Dry mucous membranes. NECK: No JVD. RESPIRATORY: Coarse BS, NL effort. CARDIO: S1,S2 obscured by BS, no audible murmur. GI: Soft, NT, BS present x4 quads without any distention, PEG-Tube intact. : [place] noted. SKIN: right hip ressing in place. NEURO: CN symmetric to visual inspection. MS: no gross deformity to visual inspection. PSYCH: Seems oriented to person only. Objective Data Vital Signs Vital Signs: Vital Signs - 24 hr 03/31/24 09:46 03/31/24 09:46 03/31/24 10:00 Temperature 98.7 F 98.7 F Pulse Rate 84 Respiratory Rate Blood Pressure Pulse Oximetry Oxygen Delivery Oxygen Flow Rate Fraction of Inspired Oxygen 03/31/24 11:20 03/31/24 11:29 03/31/24 11:52 Temperature 99.6 F Pulse Rate 85 82 81 Respiratory Rate 24 H 22 H 24 H Blood Pressure 108/60 Pulse Oximetry 99 Oxygen Delivery Oxygen Flow Rate Fraction of Inspired Oxygen 03/31/24 12:00 03/31/24 12:00 03/31/24 14:00 Temperature Pulse Rate 81 76 83 Respiratory Rate 24 H Blood Pressure Pulse Oximetry 99 Oxygen Delivery High Flow Therapy with Na Oxygen Flow Rate 35 Fraction of Inspired Oxygen 80 03/31/24 15:50 03/31/24 15:54 03/31/24 16:00 Temperature 99.6 F Pulse Rate 86 100 Respiratory Rate 20 25 H Blood Pressure 133/67 Pulse Oximetry 98 98 Oxygen Delivery High Flow Therapy with Na Oxygen Flow Rate 35 Fraction of Inspired Oxygen 80 03/31/24 16:00 03/31/24 16:00 03/31/24 16:03 Temperature Pulse Rate 100 88 85 Respiratory Rate 25 H 22 H Blood Pressure Pulse Oximetry 98 Oxygen Delivery High Flow Therapy with Na Oxygen Flow Rate 35 Fraction of Inspired Oxygen 70 03/31/24 16:10 03/31/24 17:15 03/31/24 18:00 Temperature Pulse Rate 115 H Respiratory Rate 30 H Blood Pressure Pulse Oximetry 93 88 L Oxygen Delivery High Flow Therapy with Na High Flow Therapy with Na Oxygen Flow Rate 35 35 Fraction of Inspired Oxygen 70 75 03/31/24 18:03 03/31/24 20:00 03/31/24 20:00 Temperature Pulse Rate 118 H Respiratory Rate Blood Pressure Pulse Oximetry 92 89 L Oxygen Delivery High Flow Therapy with Na High Flow Therapy with Na Oxygen Flow Rate 35 35 Fraction of Inspired Oxygen 80 80 03/31/24 20:35 03/31/24 20:50 03/31/24 20:56 Temperature 98.1 F 100.0 F H Pulse Rate 119 H 118 H Respiratory Rate 24 H 42 H 42 H Blood Pressure 107/57 L Pulse Oximetry 91 91 90 Oxygen Delivery High Flow Therapy with Na Oxygen Flow Rate 35 Fraction of Inspired Oxygen 85 03/31/24 21:30 03/31/24 21:40 03/31/24 21:41 Temperature Pulse Rate 120 H 116 H 116 H Respiratory Rate 24 H 24 H Blood Pressure Pulse Oximetry 93 Oxygen Delivery High Flow Therapy with Na Oxygen Flow Rate 40 Fraction of Inspired Oxygen 85 03/31/24 22:00 03/31/24 23:21 04/01/24 00:00 Temperature 98.2 F Pulse Rate 101 H 83 Respiratory Rate 30 H Blood Pressure 100/52 L Pulse Oximetry 92 92 Oxygen Delivery High Flow Therapy with Na Oxygen Flow Rate 40 Fraction of Inspired Oxygen 80 04/01/24 00:00 04/01/24 00:15 04/01/24 00:15 Temperature Pulse Rate 85 86 87 Respiratory Rate 24 H Blood Pressure Pulse Oximetry 93 Oxygen Delivery High Flow Therapy with Na Oxygen Flow Rate 40 Fraction of Inspired Oxygen 85 04/01/24 00:25 04/01/24 02:00 04/01/24 03:30 Temperature 98.4 F Pulse Rate 88 88 92 Respiratory Rate 24 H 30 H Blood Pressure 108/62 Pulse Oximetry 93 Oxygen Delivery Oxygen Flow Rate Fraction of Inspired Oxygen 04/01/24 04:00 04/01/24 04:00 04/01/24 04:03 Temperature Pulse Rate 100 96 Respiratory Rate 22 H Blood Pressure Pulse Oximetry 92 Oxygen Delivery High Flow Therapy with Na Oxygen Flow Rate 45 Fraction of Inspired Oxygen 80 04/01/24 04:15 04/01/24 05:15 04/01/24 05:55 Temperature Pulse Rate 93 113 H Respiratory Rate 22 H Blood Pressure Pulse Oximetry 94 Oxygen Delivery High Flow Therapy with Na Oxygen Flow Rate 45 Fraction of Inspired Oxygen 85 04/01/24 08:00 04/01/24 08:36 04/01/24 08:36 Temperature 98.3 F Pulse Rate 96 95 Respiratory Rate 28 H 24 H Blood Pressure 100/65 Pulse Oximetry 98 93 Oxygen Delivery High Flow Therapy with Na Oxygen Flow Rate 45 Fraction of Inspired Oxygen 90 04/01/24 08:48 Temperature Pulse Rate 92 Respiratory Rate 22 H Blood Pressure Pulse Oximetry Oxygen Delivery Oxygen Flow Rate Fraction of Inspired Oxygen Intake/Output Intake/Output: Intake & Output 03/29/24 03/30/24 03/31/24 04/01/24 23:59 23:59 23:59 23:59 Intake Total 2275 300 3310 791 Output Total 2700 800 1800 551 Balance -425 -500 1510 240 Meds/Results Medications: Active Medications Generic Name Dose Route Start Last Admin Trade Name Freq PRN Reason Stop Dose Admin Acetaminophen 650 mg 03/24/24 22:31 03/31/24 08:46 Acetaminophen Elixir 325 Mg/10.15 Ml Udc FEED TUBE 650 mg Q4H PRN Administration Mild Pain (1-3) or Fever Albuterol/Ipratropium 3 ml 03/19/24 16:00 04/01/24 08:36 Ipratropium 0.5 Mg/Albuterol Sulfate 2.5 Mg Ampul.Neb 3 Ml INHALATION 3 ml Q4HRT MIRNA Administration Aspirin 81 mg 03/20/24 09:00 03/31/24 08:30 Aspirin 81 Mg Chewable Tablet FEED TUBE 81 mg DAILY MIRNA Administration Atorvastatin Calcium 20 mg 03/19/24 18:00 03/31/24 17:11 Atorvastatin 20 Mg Tablet FEED TUBE 20 mg QPM MIRNA Administration Bisacodyl 10 mg 03/18/24 22:33 Bisacodyl 10 Mg Suppository RECTAL DAILY PRN Constipation Bisacodyl 10 mg 03/21/24 09:00 03/31/24 08:31 Bisacodyl 10 Mg Suppository RECTAL Not Given QAM [facility] Chlorhexidine Gluconate 15 ml 03/21/24 09:00 03/31/24 17:11 Chlorhexidine Gluconate 0.12% Oral Rinse 473 Ml Btl (*Bkc) SWISH/SPIT 15 ml BID MIRNA Administration Cyanocobalamin 1,000 mcg 03/19/24 09:00 03/31/24 08:30 Cyanocobalamin 1,000 Mcg Tablet FEED TUBE 1,000 mcg DAILY MIRNA Administration Docusate Sodium 100 mg 03/19/24 09:00 03/31/24 20:59 Docusate Sodium Liq 100 Mg/10 Ml Udc FEED TUBE 100 mg Q12HR MIRNA Administration Donepezil HCl 5 mg 03/19/24 21:00 03/31/24 20:59 Donepezil Hcl 5 Mg Tablet PO 5 mg HS MIRNA Administration Doxazosin Mesylate 1 mg 03/19/24 18:00 03/31/24 17:11 Doxazosin Mesylate 1 Mg Tablet FEED TUBE 1 mg QPM MIRNA Administration Fluticasone Propionate 2 spray 03/22/24 11:45 03/31/24 08:31 Fluticasone Propionate 0.05% Na Spr 16 Gm Btl (*Bkc) NASAL 2 spray QAM MIRNA Administration Heparin Sodium (Porcine) 5,000 units 03/19/24 09:00 03/31/24 20:59 Heparin Sodium 5,000 Units/Ml Vial SUB-Q 5,000 units Q12HR MIRNA Administration Hydroxyzine Pamoate 25 mg 03/18/24 22:45 03/31/24 20:59 Hydroxyzine Pamoate 25 Mg Capsule FEED TUBE 25 mg Q12HR MIRNA Administration Meropenem 1 gm in 100 mls @ 200 mls/hr 03/23/24 18:00 04/01/24 01:35 IVPB 04/01/24 23:59 200 mls/hr Q8H MIRNA Administration Ipratropium [place] 2 spray 03/22/24 13:00 03/31/24 18:00 Ipratropium Nasal [place] 0.03% 15 Ml Bottle NASAL 2 spray TID MIRNA Administration Loratadine 10 mg 03/18/24 22:40 03/24/24 09:04 Loratadine 10 Mg Tablet FEED TUBE 10 mg DAILY PRN Administration Congestion Magnesium Hydroxide 30 ml 03/18/24 22:33 Magnesium Hydroxide Susp 30 Ml Udc FEED TUBE DAILY PRN Constipation Morphine Sulfate 1 mg 03/31/24 17:39 03/31/24 18:00 Morphine Sulfate (*Crx) 2 Mg/Ml Inj IV PUSH 1 mg Q6H PRN Administration Pain Rated 6 or Greater Pantoprazole Sodium 40 mg 03/22/24 09:00 03/31/24 20:59 Pantoprazole Sodium Iv 40 Mg Vial IV PUSH 40 mg Q12HR MIRNA Administration Saccharomyces Boulardii 250 mg 03/19/24 09:00 03/31/24 17:11 Saccharomyces Boulardii 250 Mg Capsule FEED TUBE 250 mg BID MIRNA Administration Saliva Substitute 10 ml 03/20/24 13:00 03/31/24 21:00 Saliva Substitute Rinse 473 Ml Bottle PO 10 ml QID MIRNA Administration Timolol Maleate 1 drop 03/20/24 09:50 03/31/24 20:59 Timolol Maleate 0.5% Op Soln 5 Ml Bottle EACH EYE 1 drop Q12HR MIRNA Administration Radiology Results: ITS Impressions Chest CT 03/18/24 17:48 IMPRESSION: 1. Right-sided pneumonia with a posterior and lower lung predominance. 2. Material in the right middle lobe and right lower lobe bronchi, which may be mucous plugging or aspirated material. 3. Moderate emphysema. 4. Mild mediastinal lymphadenopathy, likely reactive. Abdomen Ultrasound 03/21/24 16:41 IMPRESSION: No significant abnormality Chest X-Ray 04/01/24 07:28 IMPRESSION: 1. Diffuse bilateral lung disease, more prominent than with interval progression on the right. Differential would include multifocal pneumonia and/or asymmetric pulmonary edema. Abdomen X-Ray 04/01/24 07:31 IMPRESSION: 1. 10 cm ball of stool at rectum suggestive of constipation with fecal impaction. Labs Labs: Laboratory Results - last 24 hr 03/31/24 03/31/24 03/31/24 11:50 18:20 23:28 Sodium Potassium Chloride Carbon Dioxide Anion Gap BUN Creatinine Estim Creat Clear Calc Estimated GFR Glucose POC Capillary Glucose 136 H 136 H 145 H Calcium Total Bilirubin AST ALT Alkaline Phosphatase Total Protein Albumin 04/01/24 05:00 Sodium 135 L Potassium 4.0 Chloride 105 Carbon Dioxide 33 H Anion Gap -3 L BUN 21 H Creatinine 0.70 Estim Creat Clear Calc 82 Estimated GFR > 60 Glucose 129 H POC Capillary Glucose Calcium 8.4 Total Bilirubin 0.5 AST 46 ALT 39 Alkaline Phosphatase 165 H Total Protein 6.0 L Albumin 2.3 L
[2024-04-01 10:10] LABS: HIV 1/2 Ab P24 Ag Result Negative (Negative); Hepatitis B Surface Antigen Negative (Negative)
[2024-04-01] MEDS: BISACODYL 10 MG SUPPOSITORY RECTAL (10:15)
[2024-04-01] MEDS: ASPIRIN 81 MG CHEWABLE TABLET FEED TUBE (10:22)
[2024-04-01] MEDS: hydrOXYzine pamoate 25 MG CAPSULE FEED TUBE ×2 (10:22→21:38)
[2024-04-01] MEDS: SACCHAROMYCES BOULARDII 250 MG CAPSULE FEED TUBE ×2 (10:22→17:32)
[2024-04-01 10:29] LABS: Hepatitis C Virus Antibody Negative (Negative)
[2024-04-01] MEDS: DOCUSATE SODIUM LIQ 100 MG/10 ML UDC FEED TUBE ×2 (10:41→21:37)
[2024-04-01] MEDS: CYANOCOBALAMIN 1,000 MCG TABLET 1000 MCG FEED TUBE (10:41)
[2024-04-01] MEDS: HEPARIN SODIUM 5,000 UNITS/ML VIAL 5000 UNITS SUB-Q ×2 (10:42→21:37)
[2024-04-01] MEDS: IPRATROPIUM NASAL SPRAY 0.03% 15 ML BOTTLE 2 SPRAY NASAL ×2 (10:42→17:43)
[2024-04-01] MEDS: FLUTICASONE PROPIONATE 0.05% NA SPR 16 GM BTL (*BKC) 2 SPRAY NASAL (10:42)
[2024-04-01] MEDS: TIMOLOL MALEATE 0.5% OP SOLN 5 ML BOTTLE 1 DROP EACH EYE (10:43)
[2024-04-01] MEDS: MEMANTINE 10 MG TABLET FEED TUBE (10:43)
[2024-04-01] MEDS: PANTOPRAZOLE SODIUM IV 40 MG VIAL IV PUSH ×2 (10:43→21:37)
[2024-04-01 12:12] LABS: Glucose Point of Care 107 mg/dl (65-105)
--- NOTE | 2024-04-01 15:13 | P.PNPL_ITS ---
Progress Note: A&P Assessment and Plan (1) Aspiration pneumonia: Qualifiers: Aspiration pneumonia type: unspecified Laterality: right Lung location: unspecified part of lung Qualified Code(s): J69.0 - Pneumonitis due to inhalation of food and vomit Code(s): J69.0 - Pneumonitis due to inhalation of food and vomit Status: Acute Assessment and Plan: Patient with a PEG tube on tube feedings and NPO at the skilled nursing with emesis on 03/18/24 followed by aspiration at the skilled nursing. He required suctioning at the skilled nursing in supplemental oxygen. Chest x-ray in the emergency department showed right-sided infiltrates and CT scan of the chest showed posterior right upper lobe, right lower lobe and infiltrates in the right middle lobe all in a dependent area consistent with aspiration. he required 6 L in the emergency department. 03/19/24: When I saw the patient today is nonverbal, he does not cough when I requested him to cough. He was on 4 L nasal cannula with saturations 98%. I decreased him to room air and after 8 minutes his saturations remain 96%. I did use yankour and cleared oral secretions from his mouth. He had no upper airway rhonchorus sounds. His white blood cell count is 11.6, his creatinine is 1.2 with a BUN of 40, his MRSA nasal swab PCR is negative. plan: The patient did aspirate. He is on tube feedings and NPO so he would have not aspirated any solid food particles. He had debris in right lower lobe and right middle lobe airways on his CT scan likely mucous. Chest x-ray today demonstrates no lobar collapse. Patient's oxygenation has improved. There is no need for bronchoscopy at this time. Patient was empirically started on vancomycin, ceftriaxone and azithromycin. His MRSA nasal swab is negative. Will discontinue vancomycin, ceftriaxone and azithromycin and change the patient to Unasyn 3 gm Q 6 hours. Will continue DuoNebs Q 6 as a history of COPD with mild apical predominant centrilobular emphysema on a CT scan of the chest. 03/20/24: patient is nonverbal attempting to mouth words. Patient had rhonchorous breath sounds when I entered the room. I asked him to cough and he did not follow commands. I used a Yankauer and suction thick secretions from the back of his oropharynx. Room air saturations 97%. White blood cell count 8.2, creatinine 0.8, afebrile. Weight is 65 kg. Patient is clinically stable. He is now on room air. Leukocytosis has improved. He is afebrile. Plan: Patient is day 3 total antibiotics, day 2 Unasyn. Clinically he is has improved. It should be noted that the patient cannot clear his oral secretions and he is at high risk for subsequent aspiration events. I will check a chest x-ray on 03/21 and if this is stable would be ready for discharge on these pulmonary medications. Augmentin suspension 400 -57/5 ml at 10 ml BID x3 days (to finish a 7 day course of total antibiotics). 03/21/24: Patient is nonverbal, attempts to mouth words but does not follow any commands. Rhonchorous upper airway sounds with an inability to cough to command and inability to clear his secretions. Yankauer again used with suctioning of secretions from the back of his mouth. Room air saturation 96%. Patient had a temperature to 99.9 this morning. Chest x-ray shows worsening right mid and lower lung infiltrates and increased left lower lung infiltrates. Plan: Patient with a low-grade temperature this morning and chest x-ray with worsening right middle and lower and left lower lobe infiltrates. Oxygenation remained stable on room air. Etiology for low-grade fever and worsening infiltrates include continued aspiration events, at this time will follow patient's temperature curve and I will not change his antibiotics and continue Unasyn day 3. Total antibiotics is day 4. Will send testing for additional etiologies of low-grade fever (LFTs, lipase). Spoke with the nurse. The patient has had formed bowel movements. will repeat chest x-ray on 03/22/2024. 03/22/24: Nonverbal, unable to cough up secretions. Patient has episodes of inability to cough secretions with hypoxia. After suctioning he requires no oxygen. When I enter the room he was on 2 L nasal cannula saturations 100. I changed him to room air and after 8 minutes his saturations were 97%. White blood cell count 5.9, creatinine 0.8. Procalcitonin 0.8. He has been afebrile. Chest x-ray with continued right lung infiltrates worsening infiltrates left lower lobe. Plan: Patient remains afebrile, no leukocytosis, procalcitonin decreased today it is 0.8, chest x-ray with continued right and worsening left lower lobe infiltrate. I suspect his left lower lobe infiltrates are related to retained and/or aspirated secretions, atelectasis rather than a new bacterial pneumonia. Total antibiotics day 5, Unasyn day 4. As predicted he has continued inability to clear secretions with hypoxia that is transient and resolved after he has deep suctioning to remove secretions. Unfortunately this issue is a continuation of his dementia and I suspect this will continue to happen in the future. I do not favor using anticholinergic agents to dry up his secretions as this may result in worsening mucus plugging and lobar collapse. I will continue duo nebulizers Q 4 hours. I would not performed Vest therapy with the patient's G-tube and history of him removing the G-tube. We will need to determine if Anita Dee can provide the patient with schedule deep suctioning as this will be required on discharge if the family wishes for continued care in an attempt to prevent recurrent mucus plugging, aspiration and hospitalization. 03/29/24; He is in a similar condition as he was when Dr Garcia last saw him Mar 22. He is unable to cough expectorate secretions from his airway. He aspirates saliva, gets fed through a peg however still has recurrent aspiration which is not prevented by having his feedings bypassing his mouth. This saturation is not going to improve. His condition is associated with a poor prognosis especially with impaired cognition. 03/30/24 Discussed with his sister, Zoe, by phone. Explained his overall poor prognosis, and he is worsening going to IMU. She will let me know when she is here to visit. I plan to talk with her in person. 04/01/24; he is in room 214 IMU, higher O2 requirements, 45 L and 90%, saturation is not easily displayed in the monitor, when it is measures, it is 92-93%. CXR is worse with Right sided infiltrates. I spoke with his sister about his status, reviewed CXR, labs. She changed his code status to DNR yesterday, not ready to change to palliative care/hospice yet. Subjective Date/time seen: 04/01/24 15:13 Interval history: Interval history: 03/19/2024: This is a new pulmonary consult for aspiration pneumonia. 79-year-old with a history of dementia, CVA, coronary artery disease, CKD, status post PEG 11/13/2023 on tube feedings at the skilled nursing. Regarding his dementia patient is nonverbal and to my exam today did not follow any verbal commands. Patient has had multiple emergency room department visits and hospitalizations for PEG tube removal as he pulls this out at the skilled nursing. On 03/18/2024 the patient vomited at the skilled nursing with a witnessed aspiration. They attempted to clear his airway but he was hypoxic and they gave him supplemental oxygen and he was transferred to the emergency department. In the emergency department he had copious secretions with difficulty coughing. Deep suction cleared his secretions and improved his respiratory status. He required 6 L nasal cannula in the emergency department with saturations 96%. Blood pressure 120/81, heart rate 102. White blood cell count 9.7, creatinine 1.2, BUN 47, COVID influenza and RSV RT PCR studies negative. Chest x-ray showed right lung infiltrate. CT of the chest showed posterior right upper lobe, right lower lobe infiltrates, right middle lobe infiltrates as well with some debris in the right middle lobe and right lower lobe. Patient was admitted for aspiration pneumonia and started on ceftriaxone, azithromycin and given vancomycin. DuoNebs were initiated. 03/19/2024: the daytime nurse told me that he had to be suctioned with a Yankauer 2 or 3 times throughout the night and also had deep suctioning through the nose through the night. She related there was a small amount of blood. When I saw the patient today is nonverbal, he does not cough when I requested him to cough. He was on 4 L nasal cannula with saturations 98%. I decreased him to room air and after 8 minutes his saturations remain 96%. I did use yankour and cleared oral secretions from his mouth. He had no upper airway rhonchorous sounds. His white blood cell count is 11.6, his creatinine is 1.2 with a BUN of 40, his MRSA nasal swab PCR is negative. 03/20/24: patient is nonverbal attempting to mouth words. Patient had rhonchorous breath sounds when I entered the room. I asked him to cough and he did not follow commands. I used a Yankauer and suction thick secretions from the back of his oropharynx. Room air saturations 97%. White blood cell count 8.2, creatinine 0.8, afebrile. Weight is 65 kg. 03/21/24: Patient is nonverbal, attempts to mouth words but does not follow any commands. rhonchorous upper airway sounds with an inability to cough to command and inability to clear his secretions. Yankauer again used with suctioning of secretions from the back of his mouth. Room air saturation 96%. Patient had a temperature to 99.9 this morning. Chest x-ray shows worsening right mid and lower lung infiltrates and increased left lower lung infiltrates. 03/22/24: Nonverbal, unable to cough up secretions. Patient has episodes of inability to cough secretions with hypoxia. After suctioning he requires no oxygen. When I enter the room he was on 2 L nasal cannula saturations 100. I changed him to room air and after 8 minutes his saturations were 97%. White blood cell count 5.9, creatinine 0.8. Procalcitonin 0.8. He has been afebrile. Chest x-ray with continued right lung infiltrates worsening infiltrates left lower lobe. 03/29/2024; Patient is seen again for aspiration. He is alert, non-verbal, has harsh moist noises from his mouth. He has ineffective cough, cannot expectorate secretions. He has dementia, has pulled his PEG out. When he does not get mucus plugging, his saturation is normal. He is not able to keep his airway clear without intermittent suctioning. He is on 4-5 L NC and saturation is 90-93%. 03/30/24; O2 need is higher, now on Airvo. He continues to have aspiration, and he is not able to protect his airway. I called his sister, Zoe, and talked about his overall prognosis being poor, given his age and poor level of responsiveness, and debility. 04/01/23 His sister, Zoe, is here. Today, Mr. Lane is more responsive compared to other visits. Zoe says that he clearly responds to her. He is on high amounts of O2, 45 L and 90%, still has no control over upper airway secretions. He was febrile to 37.6 (100 F*) last night. WBC remains normal, 8 k. CXR today is worse with infiltrates in the right side. See below ... * 04/01/24 CXR; comparison to Chest radiograph dated 03/28/2024 FINDINGS: Diffuse airspace opacities throughout both lungs, greater on the right where there has been some interval progression. Likely small bilateral pleural effusions. No pneumothorax. Heart size is normal. Mildly aneurysmal aortic arch. IMPRESSION: 1. Diffuse bilateral lung disease, more prominent than with interval progression on the right. Differential would include multifocal pneumonia and/or asymmetric pulmonary edema. DATA: EXAMINATION:CT diagnostic chest wo con DATE: 03/18/2024 17:46 INDICATION: Pneumonia. Abnormal chest radiographs. TECHNIQUE: Computed tomography (CT) of the chest was performed without intravenous contrast. Automated exposure control and iterative reconstruction technique were employed. The dose-length product (DLP) was 157.84 mGy-cm. COMPARISON: Chest single view 03/18/2024 FINDINGS: There is moderate emphysema. There is mild scarring at left lung apex. There are airspace opacities in all right lung lobes with a posterior lower lung predominance, consistent with pneumonia. Calcified bilateral lung nodules and calcified right hilar lymph nodes are consistent with old granulomatous disease. There is a 5 mm nodule in left upper lobe, likely benign. There is material in the bronchi in right middle lobe and right lower lobe. There is mild dependent atelectasis in left lower lobe. No pleural effusion. The heart size is normal. No pericardial effusion. There is mild mediastinal lymphadenopathy. A gastrostomy tube is partially visualized. There is a chronic compression fracture of L2. There are bridging endplate osteophytes at multiple levels in the spine, consistent with diffuse idiopathic skeletal hyperostosis (DISH). IMPRESSION: 1. Right-sided pneumonia with a posterior and lower lung predominance. 2. Material in the right middle lobe and right lower lobe bronchi, which may be mucous plugging or aspirated material. 3. Moderate emphysema. 4. Mild mediastinal lymphadenopathy, likely reactive. Review of Systems 2 Review of Systems: ROS unobtainable: Yes unobtainable due to medical condition Exam 2 Narrative: GEN: Alert, oriented, not in distress. He can track visually, cannot follow commands however he is more responsive, lifts his arm as I try to listen to posterior chest. HEENT: pupils are equal, EOMI, symmetrical face; oral membranes are dry, gurgling respiratory sounds NECK: Trachea is midline CHEST: Equal air entry, symmetric excursion, R>Ll rhonchi CV: Regular S1S2 no m/g/r ABD : (+) bowel sounds Extremities : no clubbing, cyanosis, or edema PSYCH: cannot assess thought because he is non-verbal; gait is not tested Objective Data Vital Signs Vital Signs: Vital Signs - 24 hr 03/31/24 15:50 03/31/24 15:54 03/31/24 16:00 Temperature 37.6 C Pulse Rate 86 100 Respiratory Rate 20 25 H Blood Pressure 133/67 Pulse Oximetry 98 98 Oxygen Delivery High Flow Therapy with Na Oxygen Flow Rate 35 Fraction of Inspired Oxygen 80 03/31/24 16:00 03/31/24 16:00 03/31/24 16:03 Temperature Pulse Rate 100 88 85 Respiratory Rate 25 H 22 H Blood Pressure Pulse Oximetry 98 Oxygen Delivery High Flow Therapy with Na Oxygen Flow Rate 35 Fraction of Inspired Oxygen 70 03/31/24 16:10 03/31/24 17:15 03/31/24 18:00 Temperature Pulse Rate 115 H Respiratory Rate 30 H Blood Pressure Pulse Oximetry 93 88 L Oxygen Delivery High Flow Therapy with Na High Flow Therapy with Na Oxygen Flow Rate 35 35 Fraction of Inspired Oxygen 70 75 03/31/24 18:03 03/31/24 20:00 03/31/24 20:00 Temperature Pulse Rate 118 H Respiratory Rate Blood Pressure Pulse Oximetry 92 89 L Oxygen Delivery High Flow Therapy with Na High Flow Therapy with Na Oxygen Flow Rate 35 35 Fraction of Inspired Oxygen 80 80 03/31/24 20:35 03/31/24 20:50 03/31/24 20:56 Temperature 36.7 C 37.8 C H Pulse Rate 119 H 118 H Respiratory Rate 24 H 42 H 42 H Blood Pressure 107/57 L Pulse Oximetry 91 91 90 Oxygen Delivery High Flow Therapy with Na Oxygen Flow Rate 35 Fraction of Inspired Oxygen 85 03/31/24 21:30 03/31/24 21:40 03/31/24 21:41 Temperature Pulse Rate 120 H 116 H 116 H Respiratory Rate 24 H 24 H Blood Pressure Pulse Oximetry 93 Oxygen Delivery High Flow Therapy with Na Oxygen Flow Rate 40 Fraction of Inspired Oxygen 85 03/31/24 22:00 03/31/24 23:21 04/01/24 00:00 Temperature 36.8 C Pulse Rate 101 H 83 Respiratory Rate 30 H Blood Pressure 100/52 L Pulse Oximetry 92 92 Oxygen Delivery High Flow Therapy with Na Oxygen Flow Rate 40 Fraction of Inspired Oxygen 80 04/01/24 00:00 04/01/24 00:15 04/01/24 00:15 Temperature Pulse Rate 85 86 87 Respiratory Rate 24 H Blood Pressure Pulse Oximetry 93 Oxygen Delivery High Flow Therapy with Na Oxygen Flow Rate 40 Fraction of Inspired Oxygen 85 04/01/24 00:25 04/01/24 02:00 04/01/24 03:30 Temperature 36.9 C Pulse Rate 88 88 92 Respiratory Rate 24 H 30 H Blood Pressure 108/62 Pulse Oximetry 93 Oxygen Delivery Oxygen Flow Rate Fraction of Inspired Oxygen 04/01/24 04:00 04/01/24 04:00 04/01/24 04:03 Temperature Pulse Rate 100 96 Respiratory Rate 22 H Blood Pressure Pulse Oximetry 92 Oxygen Delivery High Flow Therapy with Na Oxygen Flow Rate 45 Fraction of Inspired Oxygen 80 04/01/24 04:15 04/01/24 05:15 04/01/24 05:55 Temperature Pulse Rate 93 113 H Respiratory Rate 22 H Blood Pressure Pulse Oximetry 94 Oxygen Delivery High Flow Therapy with Na Oxygen Flow Rate 45 Fraction of Inspired Oxygen 85 04/01/24 08:00 04/01/24 08:36 04/01/24 08:36 Temperature 36.8 C Pulse Rate 96 95 Respiratory Rate 28 H 24 H Blood Pressure 100/65 Pulse Oximetry 98 93 Oxygen Delivery High Flow Therapy with Na Oxygen Flow Rate 45 Fraction of Inspired Oxygen 90 04/01/24 08:48 04/01/24 11:27 04/01/24 11:35 Temperature Pulse Rate 92 92 96 Respiratory Rate 22 H 22 H 22 H Blood Pressure Pulse Oximetry Oxygen Delivery Oxygen Flow Rate Fraction of Inspired Oxygen 04/01/24 12:00 Temperature 36.9 C Pulse Rate 98 Respiratory Rate 20 Blood Pressure 114/65 Pulse Oximetry 98 Oxygen Delivery Oxygen Flow Rate Fraction of Inspired Oxygen Intake/Output Intake/Output: Intake & Output 03/29/24 03/30/24 03/31/24 04/01/24 23:59 23:59 23:59 23:59 Intake Total 2275 300 3310 891 Output Total 2700 800 1800 551 Balance -425 -500 1510 340 Meds/Results Medications: Active Medications Generic Name Dose Route Start Last Admin Trade Name Freq PRN Reason Stop Dose Admin Acetaminophen 650 mg 03/24/24 22:31 03/31/24 08:46 Acetaminophen Elixir 325 Mg/10.15 Ml Udc FEED TUBE 650 mg Q4H PRN Administration Mild Pain (1-3) or Fever Albuterol/Ipratropium 3 ml 03/19/24 16:00 04/01/24 11:25 Ipratropium 0.5 Mg/Albuterol Sulfate 2.5 Mg Ampul.Neb 3 Ml INHALATION 3 ml Q4HRT MIRNA Administration Aspirin 81 mg 03/20/24 09:00 04/01/24 10:22 Aspirin 81 Mg Chewable Tablet FEED TUBE 81 mg DAILY MIRNA Administration Atorvastatin Calcium 20 mg 03/19/24 18:00 03/31/24 17:11 Atorvastatin 20 Mg Tablet FEED TUBE 20 mg QPM MIRNA Administration Bisacodyl 10 mg 03/18/24 22:33 Bisacodyl 10 Mg Suppository RECTAL DAILY PRN Constipation Bisacodyl 10 mg 03/21/24 09:00 03/31/24 08:31 Bisacodyl 10 Mg Suppository RECTAL Not Given QAM MIRNA Chlorhexidine Gluconate 15 ml 03/21/24 09:00 04/01/24 10:41 Chlorhexidine Gluconate 0.12% Oral Rinse 473 Ml Btl (*Bkc) SWISH/SPIT Not Given BID MIRNA Cyanocobalamin 1,000 mcg 03/19/24 09:00 04/01/24 10:41 Cyanocobalamin 1,000 Mcg Tablet FEED TUBE 1,000 mcg DAILY MIRNA Administration Docusate Sodium 100 mg 03/19/24 09:00 04/01/24 10:41 Docusate Sodium Liq 100 Mg/10 Ml Udc FEED TUBE 100 mg Q12HR MIRNA Administration Donepezil HCl 5 mg 03/19/24 21:00 03/31/24 20:59 Donepezil Hcl 5 Mg Tablet PO 5 mg HS MIRNA Administration Doxazosin Mesylate 1 mg 03/19/24 18:00 03/31/24 17:11 Doxazosin Mesylate 1 Mg Tablet FEED TUBE 1 mg QPM MIRNA Administration Fluticasone Propionate 2 spray 03/22/24 11:45 04/01/24 10:42 Fluticasone Propionate 0.05% Na Spr 16 Gm Btl (*Bkc) NASAL 2 spray QAM MIRNA Administration Heparin Sodium (Porcine) 5,000 units 03/19/24 09:00 04/01/24 10:42 Heparin Sodium 5,000 Units/Ml Vial SUB-Q 5,000 units Q12HR MIRNA Administration Hydroxyzine Pamoate 25 mg 03/18/24 22:45 04/01/24 10:22 Hydroxyzine Pamoate 25 Mg Capsule FEED TUBE 25 mg Q12HR MIRNA Administration Meropenem 1 gm in 100 mls @ 200 mls/hr 03/23/24 18:00 04/01/24 10:30 IVPB 04/01/24 23:59 200 mls/hr Q8H MIRNA Administration Ipratropium Thida 2 spray 03/22/24 13:00 04/01/24 10:42 Ipratropium Nasal [place] 0.03% 15 Ml Bottle NASAL 2 spray TID MIRNA Administration Loratadine 10 mg 03/18/24 22:40 03/24/24 09:04 Loratadine 10 Mg Tablet FEED TUBE 10 mg DAILY PRN Administration Congestion Magnesium Hydroxide 30 ml 03/18/24 22:33 Magnesium Hydroxide Susp 30 Ml Udc FEED TUBE DAILY PRN Constipation Memantine 10 mg 04/01/24 09:00 04/01/24 10:43 Memantine 10 Mg Tablet FEED TUBE 10 mg DAILY MIRNA Administration Morphine Sulfate 1 mg 03/31/24 17:39 03/31/24 18:00 Morphine Sulfate (*Crx) 2 Mg/Ml Inj IV PUSH 1 mg Q6H PRN Administration Pain Rated 6 or Greater Pantoprazole Sodium 40 mg 03/22/24 09:00 04/01/24 10:43 Pantoprazole Sodium Iv 40 Mg Vial IV PUSH 40 mg Q12HR MIRNA Administration Saccharomyces Boulardii 250 mg 03/19/24 09:00 04/01/24 10:22 Saccharomyces Boulardii 250 Mg Capsule FEED TUBE 250 mg BID MIRNA Administration Saliva Substitute 10 ml 03/20/24 13:00 04/01/24 10:43 Saliva Substitute Rinse 473 Ml Bottle PO Not Given QID MIRNA Timolol Maleate 1 drop 03/20/24 09:50 04/01/24 10:43 Timolol Maleate 0.5% Op Soln 5 Ml Bottle EACH EYE 1 drop Q12HR MIRNA Administration Radiology Results: ITS Impressions Chest CT 03/18/24 17:48 IMPRESSION: 1. Right-sided pneumonia with a posterior and lower lung predominance. 2. Material in the right middle lobe and right lower lobe bronchi, which may be mucous plugging or aspirated material. 3. Moderate emphysema. 4. Mild mediastinal lymphadenopathy, likely reactive. Abdomen Ultrasound 03/21/24 16:41 IMPRESSION: No significant abnormality Chest X-Ray 04/01/24 07:28 IMPRESSION: 1. Diffuse bilateral lung disease, more prominent than with interval progression on the right. Differential would include multifocal pneumonia and/or asymmetric pulmonary edema. Abdomen X-Ray 04/01/24 07:31 IMPRESSION: 1. 10 cm ball of stool at rectum suggestive of constipation with fecal impaction. Labs Labs: Laboratory Results - last 24 hr 03/31/24 03/31/24 04/01/24 18:20 23:28 04:56 Sodium Potassium Chloride Carbon Dioxide Anion Gap BUN Creatinine Estim Creat Clear Calc Estimated GFR Glucose POC Capillary Glucose 136 H 145 H Calcium Total Bilirubin AST ALT Alkaline Phosphatase Total Protein Albumin Hep Bs Antigen Negative Hepatitis C Ab Screen Negative HIV 1&2 Ab/P24 Ag 4thGn Negative 04/01/24 04/01/24 05:00 12:01 Sodium 135 L Potassium 4.0 Chloride 105 Carbon Dioxide 33 H Anion Gap -3 L BUN 21 H Creatinine 0.70 Estim Creat Clear Calc 82 Estimated GFR > 60 Glucose 129 H POC Capillary Glucose 107 H Calcium 8.4 Total Bilirubin 0.5 AST 46 ALT 39 Alkaline Phosphatase 165 H Total Protein 6.0 L Albumin 2.3 L Hep Bs Antigen Hepatitis C Ab Screen HIV 1&2 Ab/P24 Ag 4thGn
[2024-04-01] MEDS: ATORVASTATIN 20 MG TABLET FEED TUBE (17:33)
[2024-04-01] MEDS: DOXAZOSIN MESYLATE 1 MG TABLET FEED TUBE (17:33)
[2024-04-01 18:05] LABS: Glucose Point of Care 110 mg/dl (65-105)
[2024-04-01] MEDS: SALIVA SUBSTITUTE RINSE 473 ML BOTTLE 10 ML PO (21:38)
[2024-04-01] MEDS: DONEPEZIL HCL 5 MG TABLET PO (21:38)
[2024-04-02] VITALS (31 sets, daily range): BP systolic 97–132; BP diastolic 53–84; PULSE 78–98; RESP 20–28; TEMP 36.3–38.7; O2SAT 90–98
[2024-04-02 00:36] LABS: Glucose Point of Care 97 mg/dl (65-105)
[2024-04-02] MEDS: MEROPENEM 1 GM/NS 100 ML BAG IVPB ×3 (01:56→20:19)
[2024-04-02 04:25] LABS: Hematocrit 31.7 % (42.0-52.0); Hemoglobin 10.2 g/dL (14.0-18.0); Mean Corpuscular HGB Conc 32.2 g/dl (32-36); Mean Corpuscular Hemoglobin 30.1 pg (26-34); Mean Corpuscular Volume 93.5 fl (80-100); Mean Platelet Volume 9.9 fl (7.4-10.4); Platelet Count Result 473 k/mm3 (150-375); Red Blood Count 3.39 M/mm3 (4.6-6.20); Red Cell Distribution Width 13.4 % (11.5-14.5); White Blood Count 7.6 K/mm3 (4.5-10.0)
[2024-04-02 04:30] LABS: Alanine Aminotransferase 35 U/L (6-50); Albumin Level 2.1 g/dL (3.5-5.1); Alkaline Phosphatase 161 U/L (38-126); Anion Gap -3 mmol/L (4-12); Aspartate Amino Transferase 34 U/L (17-59); Bilirubin,Total 0.5 mg/dL (0.2-1.3); Blood Urea Nitrogen 18 mg/dL (9-20); Calcium 8.2 mg/dL (8.4-10.2); Carbon Dioxide 36 mmol/L (22-30); Chloride 104 mmol/L (98-107); Estimated CRCL calculation 73 ml/min; Estimated Glomerular Filt Rate > 60; Glucose 97 mg/dL (65-110); Potassium 3.6 mmol/L (3.4-5.0); Sodium 137 mmol/L (137-145)
[2024-04-02] MEDS: IPRATROPIUM 0.5 MG/ALBUTEROL SULFATE 2.5 MG AMPUL.NEB 3 ML INHALATION ×6 (05:14→23:59)
--- NOTE | 2024-04-02 08:35 | P.PNIM_ITS ---
Progress Note: A&P Assessment and Plan (1) Sepsis: Qualifiers: Acute respiratory failure type: with hypoxia Sepsis acute organ dysfunction status: with acute organ dysfunction Sepsis type: sepsis due to unspecified organism Severe sepsis acute organ dysfunction type: acute respiratory failure Severe sepsis shock status: without septic shock Qualified Code(s): A41.9 - Sepsis, unspecified organism; R65.20 - Severe sepsis without septic shock; J96.01 - Acute respiratory failure with hypoxia Code(s): A41.9 - Sepsis, unspecified organism Status: Resolved Assessment and Plan: Sepsis Fevers Patient met sepsis criteria on admission with tachycardia, tachypnea, hypotenision, CXR consistent with PNA, Intermittent fevers, 03/23-03/25 up to 102, 03/28 up to 101, 03/31 up to 101 Recent Diagnostics 03/23 x2 Blood cultures No growth 03/23 Urine culture negative 03/25 MRSA screen not detected 03/28 CXR: Bilateral pneumonia. Underlying pulmonary edema and fibrotic changes are not excluded 04/01 CXR with continued asymmetric infiltrates, R>L, oxygen requirement up to 45 L or 90% FiO2, remains febrile, continues to deteriorate Antibiotics Ceftriaxone 03/18 Azithromycin 03/18 Vancomycin 03/18- 03/25 Unasyn 03/19-03/23 Meropenem 03/23-04/02 PLAN --Continue Meropenem. --NT suction BID --Repeat sputum -- Vanc discontinued with negative MRSA. -- Pulmonary following, appreciate recommendations -- Continue current abx treatment. (2) Aspiration pneumonia: Qualifiers: Aspiration pneumonia type: unspecified Laterality: right Lung location: unspecified part of lung Qualified Code(s): J69.0 - Pneumonitis due to inhalation of food and vomit Code(s): J69.0 - Pneumonitis due to inhalation of food and vomit Status: Acute Assessment and Plan: Treating aspiration pneumonia. Had an episode of emesis on presentation. 03/22 Chest x-ray Airspace opacities in right mid and lower lung zones and left lower lung zone with mild worsening on the left, consistent with pneumonia. -- Repeat CXR; Bilateral pneumonia. Underlying pulmonary edema and fibrotic changes are not excluded. -- 04/01/24 TF held overnight due to emesis. (3) Acute hypoxemic respiratory failure: Code(s): J96.01 - Acute respiratory failure with hypoxia Status: Acute Assessment and Plan: Acute hypoxic respiratory failure Aspiration pneumonia --Currently on Meropenem. -- Vancomycin discontinued with negative MRSA PCR. --Repeat CXR 03/28; Bilateral pneumonia. Underlying pulmonary edema and fibrotic changes are not excluded. -- Likely due to inability to cough up secretions. -- Seen by Pulmonary. --Aspiration precautions, elevate HOB. --NPO. Artificial saliva, frequent oral care. Continue peridex -- 04/01/24 worsened. (4) COPD (chronic obstructive pulmonary disease): Qualifiers: COPD type: COPD with acute lower respiratory infection Qualified Code(s): J44.0 - Chronic obstructive pulmonary disease with (acute) lower respiratory infection Code(s): J44.9 - Chronic obstructive pulmonary disease, unspecified Status: Acute Assessment and Plan: * COPD. * Appears compensated. * Continue scheduled duonebs. (5) AMS (altered mental status): Qualifiers: Altered mental status type: unspecified Qualified Code(s): R41.82 - Altered mental status, unspecified Code(s): R41.82 - Altered mental status, unspecified Status: Chronic Assessment and Plan: Seems at baseline. Hx dementia (6) Transaminitis: Code(s): R74.01 - Elevation of levels of liver transaminase levels Status: Chronic Assessment and Plan: Transaminitis * Chronic and trending down. * Possibly related to infection. 03/21 US abdomen no gallstones or gallbladder wall thickening -- No further w/u for now. -- Resolved. (7) Dementia: Qualifiers: Dementia behavioral or psychological symptom: unspecified whether behavioral, psychotic, or mood disturbance or anxiety Dementia severity: severe Dementia type: unspecified type Qualified Code(s): F03.C0 - Unspecified dementia, severe, without behavioral disturbance, psychotic disturbance, mood disturbance, and anxiety Code(s): F03.90 - Unspecified dementia, unspecified severity, without behavioral disturbance, psychotic disturbance, mood disturbance, and anxiety Status: Chronic Assessment and Plan: Dementia Pt with G-tube secondary to malnutrition since about 10/2023. Continue supportive care. Turn q2. Respiratory failure likely related to dementia, with inability to clear secretions, chronic aspiration. Condition is progressive. Will continue to have frequent similar episodes if able to recover from this illnesses. Overall poor prognosis (8) Anemia: Code(s): D64.9 - Anemia, unspecified Status: Acute Assessment and Plan: --Hgb appears stable. --Seen by GI. -- Had EGD x2 last few months when G-tube was placed without major findings. -- No need to repeat endoscopic evaluation, anemia probably multifactorial per GI. (9) Hypokalemia: Code(s): E87.6 - Hypokalemia Status: Acute Assessment and Plan: * Continue to replete as needed. Time Spent With Patient Time: 57 minutes Subjective Date/time seen: 04/02/24 08:35 Interval history: Afebrile, WBC normal 45L, 85% FiO2, unable to wean. Planning to NT suction today 04/01 KUB noted a stool ball Chest xray 1. Diffuse bilateral lung disease, more prominent than with interval progression on the right. Differential would include multifocal pneumonia and/or asymmetric pulmonary edema. Review of Systems Review of Systems: All systems reviewed & are unremarkable except as noted in HPI and below Exam Narrative: CONSTITUTIONAL: Nonverbal, moaning intermittent, resistant to exam. HENMT: Atraumatic and normocephalic. Dry mucous membranes. NECK: No JVD. RESPIRATORY: Coarse BS, NL effort. CARDIO: S1,S2 obscured by BS, no audible murmur. GI: Soft, NT, BS present x4 quads without any distention, PEG-Tube intact. : [place] noted. SKIN: right hip dressing in place. NEURO: CN symmetric to visual inspection. MS: no gross deformity to visual inspection. PSYCH: Seems oriented to person only. Objective Data Vital Signs Vital Signs: Vital Signs - 24 hr 04/01/24 08:36 04/01/24 08:36 04/01/24 08:48 Temperature Pulse Rate 95 92 Respiratory Rate 24 H 22 H Blood Pressure Pulse Oximetry 93 Oxygen Delivery High Flow Therapy with Na Oxygen Flow Rate 45 Fraction of Inspired Oxygen 90 04/01/24 10:00 04/01/24 11:27 04/01/24 11:35 Temperature Pulse Rate 93 92 96 Respiratory Rate 22 H 22 H Blood Pressure Pulse Oximetry Oxygen Delivery Oxygen Flow Rate Fraction of Inspired Oxygen 04/01/24 12:00 04/01/24 12:00 04/01/24 12:00 Temperature 98.4 F Pulse Rate 98 96 97 Respiratory Rate 20 22 H Blood Pressure 114/65 Pulse Oximetry 98 92 Oxygen Delivery High Flow Therapy with Na Oxygen Flow Rate 45 Fraction of Inspired Oxygen 80 04/01/24 14:00 04/01/24 15:57 04/01/24 15:57 Temperature Pulse Rate 90 99 Respiratory Rate 20 Blood Pressure Pulse Oximetry 92 Oxygen Delivery High Flow Therapy with Na Oxygen Flow Rate 45 Fraction of Inspired Oxygen 90 04/01/24 16:00 04/01/24 16:00 04/01/24 16:00 Temperature 99.8 F H Pulse Rate 94 93 Respiratory Rate 22 H Blood Pressure 116/61 Pulse Oximetry 98 93 Oxygen Delivery High Flow Therapy with Na Oxygen Flow Rate 45 Fraction of Inspired Oxygen 90 04/01/24 16:09 04/01/24 20:00 04/01/24 20:00 Temperature Pulse Rate 97 108 H Respiratory Rate 22 H Blood Pressure Pulse Oximetry 92 Oxygen Delivery High Flow Therapy with Na Oxygen Flow Rate 45 Fraction of Inspired Oxygen 85 04/01/24 20:40 04/01/24 20:44 04/01/24 21:35 Temperature 98.8 F Pulse Rate 93 93 95 Respiratory Rate 24 H 26 H Blood Pressure 148/81 H Pulse Oximetry 92 93 Oxygen Delivery High Flow Therapy with Na Oxygen Flow Rate 45 Fraction of Inspired Oxygen 90 04/01/24 22:00 04/01/24 23:57 04/02/24 00:00 Temperature Pulse Rate 95 95 93 Respiratory Rate 22 H Blood Pressure Pulse Oximetry Oxygen Delivery Oxygen Flow Rate Fraction of Inspired Oxygen 04/02/24 00:00 04/02/24 00:04 04/02/24 00:21 Temperature 98.3 F Pulse Rate 97 85 Respiratory Rate 22 H 22 H Blood Pressure 114/67 Pulse Oximetry 94 91 Oxygen Delivery High Flow Therapy with Na Oxygen Flow Rate 45 Fraction of Inspired Oxygen 85 04/02/24 02:00 04/02/24 02:00 04/02/24 04:00 Temperature Pulse Rate 95 88 88 Respiratory Rate Blood Pressure Pulse Oximetry 94 Oxygen Delivery High Flow Therapy with Na Oxygen Flow Rate 45 Fraction of Inspired Oxygen 90 04/02/24 04:00 04/02/24 04:08 04/02/24 05:14 Temperature 98.9 F Pulse Rate 83 93 Respiratory Rate 23 H 22 H Blood Pressure 122/69 Pulse Oximetry 94 94 Oxygen Delivery High Flow Therapy with Na Oxygen Flow Rate 45 Fraction of Inspired Oxygen 85 04/02/24 05:26 04/02/24 06:00 04/02/24 07:38 Temperature 97.4 F L Pulse Rate 94 84 89 Respiratory Rate 22 H 20 Blood Pressure 132/84 Pulse Oximetry 96 Oxygen Delivery Oxygen Flow Rate Fraction of Inspired Oxygen Intake/Output Intake/Output: Intake & Output 03/30/24 03/31/24 04/01/24 04/02/24 23:59 23:59 23:59 23:59 Intake Total 300 3310 1091 1075 Output Total 800 1800 1051 200 Balance -500 1510 40 875 Meds/Results Medications: Active Medications Generic Name Dose Route Start Last Admin Trade Name Freq PRN Reason Stop Dose Admin Acetaminophen 650 mg 03/24/24 22:31 03/31/24 08:46 Acetaminophen Elixir 325 Mg/10.15 Ml Udc FEED TUBE 650 mg Q4H PRN Administration Mild Pain (1-3) or Fever Albuterol/Ipratropium 3 ml 03/19/24 16:00 04/02/24 05:14 Ipratropium 0.5 Mg/Albuterol Sulfate 2.5 Mg Ampul.Neb 3 Ml INHALATION 3 ml Q4HRT MIRNA Administration Aspirin 81 mg 03/20/24 09:00 04/01/24 10:22 Aspirin 81 Mg Chewable Tablet FEED TUBE 81 mg DAILY MIRNA Administration Atorvastatin Calcium 20 mg 03/19/24 18:00 04/01/24 17:33 Atorvastatin 20 Mg Tablet FEED TUBE 20 mg QPM MIRNA Administration Bisacodyl 10 mg 03/18/24 22:33 Bisacodyl 10 Mg Suppository RECTAL DAILY PRN Constipation Bisacodyl 10 mg 03/21/24 09:00 04/01/24 10:15 Bisacodyl 10 Mg Suppository RECTAL 10 mg QAM MIRNA Administration Chlorhexidine Gluconate 15 ml 03/21/24 09:00 04/01/24 17:33 Chlorhexidine Gluconate 0.12% Oral Rinse 473 Ml Btl (*Bkc) SWISH/SPIT Not Given BID MIRNA Cyanocobalamin 1,000 mcg 03/19/24 09:00 04/01/24 10:41 Cyanocobalamin 1,000 Mcg Tablet FEED TUBE 1,000 mcg DAILY MIRNA Administration Docusate Sodium 100 mg 03/19/24 09:00 04/01/24 21:37 Docusate Sodium Liq 100 Mg/10 Ml Udc FEED TUBE 100 mg Q12HR MIRNA Administration Donepezil HCl 5 mg 03/19/24 21:00 04/01/24 21:38 Donepezil Hcl 5 Mg Tablet PO 5 mg HS MIRNA Administration Doxazosin Mesylate 1 mg 03/19/24 18:00 04/01/24 17:33 Doxazosin Mesylate 1 Mg Tablet FEED TUBE 1 mg QPM MIRNA Administration Fluticasone Propionate 2 spray 03/22/24 11:45 04/01/24 10:42 Fluticasone Propionate 0.05% Na Spr 16 Gm Btl (*Bkc) NASAL 2 spray QAM MIRNA Administration Heparin Sodium (Porcine) 5,000 units 03/19/24 09:00 04/01/24 21:37 Heparin Sodium 5,000 Units/Ml Vial SUB-Q 5,000 units Q12HR MIRNA Administration Hydroxyzine Pamoate 25 mg 03/18/24 22:45 04/01/24 21:38 Hydroxyzine Pamoate 25 Mg Capsule FEED TUBE 25 mg Q12HR MIRNA Administration Meropenem 1 gm in 100 mls @ 200 mls/hr 03/23/24 18:00 04/02/24 01:56 IVPB 04/07/24 23:59 200 mls/hr Q8H MIRNA Administration Ipratropium [place] 2 spray 03/22/24 13:00 04/01/24 17:43 Ipratropium Nasal [place] 0.03% 15 Ml Bottle NASAL 2 spray TID MIRNA Administration Loratadine 10 mg 03/18/24 22:40 03/24/24 09:04 Loratadine 10 Mg Tablet FEED TUBE 10 mg DAILY PRN Administration Congestion Magnesium Hydroxide 30 ml 03/18/24 22:33 Magnesium Hydroxide Susp 30 Ml Udc FEED TUBE DAILY PRN Constipation Memantine 10 mg 04/01/24 09:00 04/01/24 10:43 Memantine 10 Mg Tablet FEED TUBE 10 mg DAILY MIRNA Administration Morphine Sulfate 1 mg 03/31/24 17:39 03/31/24 18:00 Morphine Sulfate (*Crx) 2 Mg/Ml Inj IV PUSH 1 mg Q6H PRN Administration Pain Rated 6 or Greater Pantoprazole Sodium 40 mg 03/22/24 09:00 04/01/24 21:37 Pantoprazole Sodium Iv 40 Mg Vial IV PUSH 40 mg Q12HR MIRNA Administration Saccharomyces Boulardii 250 mg 03/19/24 09:00 04/01/24 17:32 Saccharomyces Boulardii 250 Mg Capsule FEED TUBE 250 mg BID MIRNA Administration Saliva Substitute 10 ml 03/20/24 13:00 04/01/24 21:38 Saliva Substitute Rinse 473 Ml Bottle PO 10 ml QID MIRNA Administration Timolol Maleate 1 drop 03/20/24 09:50 04/01/24 21:38 Timolol Maleate 0.5% Op Soln 5 Ml Bottle EACH EYE Not Given Q12HR MIRNA Radiology Results: ITS Impressions Chest CT 03/18/24 17:48 IMPRESSION: 1. Right-sided pneumonia with a posterior and lower lung predominance. 2. Material in the right middle lobe and right lower lobe bronchi, which may be mucous plugging or aspirated material. 3. Moderate emphysema. 4. Mild mediastinal lymphadenopathy, likely reactive. Abdomen Ultrasound 03/21/24 16:41 IMPRESSION: No significant abnormality Chest X-Ray 04/01/24 07:28 IMPRESSION: 1. Diffuse bilateral lung disease, more prominent than with interval progression on the right. Differential would include multifocal pneumonia and/or asymmetric pulmonary edema. Abdomen X-Ray 04/01/24 07:31 IMPRESSION: 1. 10 cm ball of stool at rectum suggestive of constipation with fecal impaction. Labs Labs: Laboratory Results - last 24 hr 04/01/24 04/01/24 04/01/24 04:56 12:01 16:36 WBC RBC Hgb Hct MCV MCH MCHC RDW Plt Count MPV Sodium Potassium Chloride Carbon Dioxide Anion Gap BUN Creatinine Estim Creat Clear Calc Estimated GFR Glucose POC Capillary Glucose 107 H 110 H Calcium Total Bilirubin AST ALT Alkaline Phosphatase Total Protein Albumin Hep Bs Antigen Negative Hepatitis C Ab Screen Negative HIV 1&2 Ab/P24 Ag 4thGn Negative 04/02/24 04/02/24 00:31 04:02 WBC 7.6 RBC 3.39 L Hgb 10.2 L Hct 31.7 L MCV 93.5 MCH 30.1 MCHC 32.2 RDW 13.4 Plt Count 473 H MPV 9.9 Sodium 137 Potassium 3.6 Chloride 104 Carbon Dioxide 36 H Anion Gap -3 L BUN 18 Creatinine 0.80 Estim Creat Clear Calc 73 Estimated GFR > 60 Glucose 97 POC Capillary Glucose 97 Calcium 8.2 L Total Bilirubin 0.5 AST 34 ALT 35 Alkaline Phosphatase 161 H Total Protein 5.0 L Albumin 2.1 L Hep Bs Antigen Hepatitis C Ab Screen HIV 1&2 Ab/P24 Ag 4thGn Quality VTE Prophylaxis VTE prophylaxis: pharmacologic ordered Hospitalist MIPS Advance Care Plan I have confirmed that the patient's Advanced Care Plan is present, code status is documented, or surrogate decision maker is listed in patient medical record.: Yes Medication Reconciliation I have utilized all available resources to obtain, update and review the p atients current medications (includes all prescriptions, OTC, herbals, cannabis, and nutritional supplements).: Yes
[2024-04-02] MEDS: MEMANTINE 10 MG TABLET FEED TUBE (09:20)
[2024-04-02] MEDS: DOCUSATE SODIUM LIQ 100 MG/10 ML UDC FEED TUBE ×2 (09:20→20:56)
[2024-04-02] MEDS: CYANOCOBALAMIN 1,000 MCG TABLET 1000 MCG FEED TUBE (09:20)
[2024-04-02] MEDS: BISACODYL 10 MG SUPPOSITORY RECTAL (09:20)
[2024-04-02] MEDS: ASPIRIN 81 MG CHEWABLE TABLET FEED TUBE (09:20)
[2024-04-02] MEDS: HEPARIN SODIUM 5,000 UNITS/ML VIAL 5000 UNITS SUB-Q ×2 (09:20→20:56)
[2024-04-02] MEDS: SACCHAROMYCES BOULARDII 250 MG CAPSULE FEED TUBE ×2 (09:20→20:19)
[2024-04-02] MEDS: hydrOXYzine pamoate 25 MG CAPSULE FEED TUBE ×2 (09:20→20:55)
[2024-04-02] MEDS: IPRATROPIUM NASAL SPRAY 0.03% 15 ML BOTTLE 2 SPRAY NASAL ×3 (09:21→16:57)
[2024-04-02] MEDS: PANTOPRAZOLE SODIUM IV 40 MG VIAL IV PUSH ×2 (09:21→20:56)
[2024-04-02] MEDS: FLUTICASONE PROPIONATE 0.05% NA SPR 16 GM BTL (*BKC) 2 SPRAY NASAL (09:22)
[2024-04-02] MEDS: TIMOLOL MALEATE 0.5% OP SOLN 5 ML BOTTLE 1 DROP EACH EYE (09:38)
[2024-04-02] MEDS: polyethylene glycoL 3350 17 GM POWD.PACK PO (10:00)
--- NOTE | 2024-04-02 11:56 | PCDIET ---
Pt reviewed in IMU rounds. TF was held last night due to emesis. Noted no tube feed residuals per nursing. TF to restart slowly today and work to goal of 50ml/hr as previous. Discussion with family on possible hospice care.
[2024-04-02 12:04] LABS: Glucose Point of Care 97 mg/dl (65-105)
--- NOTE | 2024-04-02 17:32 | PCRCNOTE ---
RN notified RT that patient's SpO2 was 86-87% on Vapotherm 45L 90%. RT increased FiO2 to 100% on Vapotherm and NT suctioned pt. Pt's SpO2 dropped to 83% while being suctioned with minimal increase. RT placed 10L Simple Mask over top of Vapotherm 45L 100%. Patient's SpO2 increased to 93-95%. RN aware.
[2024-04-02 18:55] LABS: Glucose Point of Care 106 mg/dl (65-105)
[2024-04-02] MEDS: DOXAZOSIN MESYLATE 1 MG TABLET FEED TUBE (20:19)
[2024-04-02] MEDS: DONEPEZIL HCL 5 MG TABLET PO (20:55)
[2024-04-02] MEDS: ATORVASTATIN 20 MG TABLET FEED TUBE (20:55)
[2024-04-02] MEDS: SALIVA SUBSTITUTE RINSE 473 ML BOTTLE 10 ML PO (20:56)
[2024-04-02] MEDS: MAGNESIUM HYDROXIDE SUSP 30 ML UDC FEED TUBE (20:56)
[2024-04-02] MEDS: ACETAMINOPHEN ELIXIR 325 MG/10.15 ML UDC 650 MG FEED TUBE (20:56)
[2024-04-02] MEDS: MORPHINE SULFATE (*CRX) 2 MG/ML INJ 1 MG IV PUSH (21:00)
[2024-04-02 23:35] LABS: Glucose Point of Care 143 mg/dl (65-105)
[2024-04-03] VITALS (22 sets, daily range): BP systolic 105–145; BP diastolic 62–76; PULSE 78–113; RESP 20–29; TEMP 36.8–37.7; O2SAT 90–95
[2024-04-03] MEDS: IPRATROPIUM 0.5 MG/ALBUTEROL SULFATE 2.5 MG AMPUL.NEB 3 ML INHALATION ×4 (03:51→16:22)
[2024-04-03] MEDS: MORPHINE SULFATE (*CRX) 2 MG/ML INJ 1 MG IV PUSH ×2 (04:35→16:08)
[2024-04-03] MEDS: MEROPENEM 1 GM/NS 100 ML BAG IVPB ×2 (04:36→11:40)
[2024-04-03 06:16] LABS: Glucose Point of Care 124 mg/dl (65-105)
[2024-04-03] MEDS: hydrOXYzine pamoate 25 MG CAPSULE FEED TUBE (08:58)
[2024-04-03] MEDS: DOCUSATE SODIUM LIQ 100 MG/10 ML UDC FEED TUBE (08:58)
[2024-04-03] MEDS: ASPIRIN 81 MG CHEWABLE TABLET FEED TUBE (08:58)
[2024-04-03] MEDS: PANTOPRAZOLE SODIUM IV 40 MG VIAL IV PUSH (08:58)
[2024-04-03] MEDS: HEPARIN SODIUM 5,000 UNITS/ML VIAL 5000 UNITS SUB-Q (08:58)
[2024-04-03] MEDS: polyethylene glycoL 3350 17 GM POWD.PACK PO (08:58)
[2024-04-03] MEDS: CYANOCOBALAMIN 1,000 MCG TABLET 1000 MCG FEED TUBE (08:58)
[2024-04-03] MEDS: BISACODYL 10 MG SUPPOSITORY RECTAL (08:58)
[2024-04-03] MEDS: SACCHAROMYCES BOULARDII 250 MG CAPSULE FEED TUBE ×2 (08:58→16:08)
[2024-04-03] MEDS: MEMANTINE 10 MG TABLET FEED TUBE (08:58)
[2024-04-03] MEDS: CHLORHEXIDINE GLUCONATE 0.12% ORAL RINSE 473 ML BTL (*BKC) 15 ML SWISH/SPIT (08:59)
[2024-04-03] MEDS: FLUTICASONE PROPIONATE 0.05% NA SPR 16 GM BTL (*BKC) 2 SPRAY NASAL (08:59)
[2024-04-03] MEDS: SALIVA SUBSTITUTE RINSE 473 ML BOTTLE 10 ML PO ×2 (09:00→13:42)
[2024-04-03] MEDS: TIMOLOL MALEATE 0.5% OP SOLN 5 ML BOTTLE 1 DROP EACH EYE (09:00)
[2024-04-03] MEDS: IPRATROPIUM NASAL SPRAY 0.03% 15 ML BOTTLE 2 SPRAY NASAL (09:00)
--- NOTE | 2024-04-03 09:59 | P.PNIM_ITS ---
Progress Note: A&P Assessment and Plan (1) Sepsis: Qualifiers: Acute respiratory failure type: with hypoxia Sepsis acute organ dysfunction status: with acute organ dysfunction Sepsis type: sepsis due to unspecified organism Severe sepsis acute organ dysfunction type: acute respiratory failure Severe sepsis shock status: without septic shock Qualified Code(s): A41.9 - Sepsis, unspecified organism; R65.20 - Severe sepsis without septic shock; J96.01 - Acute respiratory failure with hypoxia Code(s): A41.9 - Sepsis, unspecified organism Status: Resolved Assessment and Plan: Sepsis Fevers Patient met sepsis criteria on admission with tachycardia, tachypnea, hypotenision, CXR consistent with PNA, Intermittent fevers, 03/23-03/25 up to 102, 03/28 up to 101, 03/31 up to 101 Recent Diagnostics 03/23 x2 Blood cultures No growth 03/23 Urine culture negative 03/25 MRSA screen not detected 03/28 CXR: Bilateral pneumonia. Underlying pulmonary edema and fibrotic changes are not excluded 04/01 CXR with continued asymmetric infiltrates, R>L, oxygen requirement up to 45 L or 90% FiO2, remains febrile, continues to deteriorate Antibiotics Ceftriaxone 03/18 Azithromycin 03/18 Vancomycin 03/18- 03/25 Unasyn 03/19-03/23 Meropenem 03/23-present PLAN --Continue Meropenem, unclear benefit as he's not improving, but continuing for now --NT suction BID --Repeat sputum if able to obtain -- Vanc discontinued with negative MRSA. -- Pulmonary following, appreciate recommendations -- Continue current abx treatment. (2) Aspiration pneumonia: Qualifiers: Aspiration pneumonia type: unspecified Laterality: right Lung location: unspecified part of lung Qualified Code(s): J69.0 - Pneumonitis due to inhalation of food and vomit Code(s): J69.0 - Pneumonitis due to inhalation of food and vomit Status: Acute Assessment and Plan: Treating aspiration pneumonia. Had an episode of emesis on presentation. 03/22 Chest x-ray Airspace opacities in right mid and lower lung zones and left lower lung zone with mild worsening on the left, consistent with pneumonia. -- Repeat CXR; Bilateral pneumonia. Underlying pulmonary edema and fibrotic ch anges are not excluded. -- 04/01/24 TF held overnight due to emesis. (3) Acute hypoxemic respiratory failure: Code(s): J96.01 - Acute respiratory failure with hypoxia Status: Acute Assessment and Plan: Acute hypoxic respiratory failure Aspiration pneumonia --Currently on Meropenem. -- Vancomycin discontinued with negative MRSA PCR. --Repeat CXR 03/28; Bilateral pneumonia. Underlying pulmonary edema and fibrotic changes are not excluded. -- Likely due to inability to cough up secretions. -- Seen by Pulmonary. --Aspiration precautions, elevate HOB. --NPO. Artificial saliva, frequent oral care. Continue peridex -- 04/01/24 worsened. (4) COPD (chronic obstructive pulmonary disease): Qualifiers: COPD type: COPD with acute lower respiratory infection Qualified Code(s): J44.0 - Chronic obstructive pulmonary disease with (acute) lower respiratory infection Code(s): J44.9 - Chronic obstructive pulmonary disease, unspecified Status: Acute Assessment and Plan: * COPD. * Appears compensated. * Continue scheduled duonebs. (5) AMS (altered mental status): Qualifiers: Altered mental status type: unspecified Qualified Code(s): R41.82 - Altered mental status, unspecified Code(s): R41.82 - Altered mental status, unspecified Status: Chronic Assessment and Plan: Seems at baseline. Hx dementia (6) Transaminitis: Code(s): R74.01 - Elevation of levels of liver transaminase levels Status: Chronic Assessment and Plan: Transaminitis * Chronic and trending down. * Possibly related to infection. 03/21 US abdomen no gallstones or gallbladder wall thickening -- No further w/u for now. -- Resolved. (7) Dementia: Qualifiers: Dementia behavioral or psychological symptom: unspecified whether behavioral, psychotic, or mood disturbance or anxiety Dementia severity: severe Dementia type: unspecified type Qualified Code(s): F03.C0 - Unspecified dementia, severe, without behavioral disturbance, psychotic disturbance, mood disturbance, and anxiety Code(s): F03.90 - Unspecified dementia, unspecified severity, without behavioral disturbance, psychotic disturbance, mood disturbance, and anxiety Status: Chronic Assessment and Plan: Dementia Pt with G-tube secondary to malnutrition since about 10/2023. Continue supportive care. Turn q2. Respiratory failure likely related to dementia, with inability to clear secretions, chronic aspiration. Condition is progressive. Will continue to have frequent similar episodes if able to recover from this illnesses. Poor prognosis (8) Anemia: Code(s): D64.9 - Anemia, unspecified Status: Acute Assessment and Plan: --Hgb appears stable. --Seen by GI. -- Had EGD x2 last few months when G-tube was placed without major findings. -- No need to repeat endoscopic evaluation, anemia probably multifactorial per GI. (9) Hypokalemia: Code(s): E87.6 - Hypokalemia Status: Acute Assessment and Plan: * Continue to replete as needed. (10) Acute pain: Code(s): R52 - Pain, unspecified Status: Acute Assessment and Plan: Pain and discomfort from respiratory distress --Increase morphine from q6 to 1mg q2 prn Time Spent With Patient Time: 58 minutes Subjective Date/time seen: 04/03/24 09:59 Interval history: Afebrile, WBC normal 45L, 100% FiO2, unable to wean. Spoke with family Had a BM after an enema, loose. Desat when turning DNR/DNI Spoke with family and considering hospice. Would like more information about palliative care and hospice. Discussed with them that he would likely qualify for general inpatient hospice given respiratory failure Discussed increasing morphine frequency for acute pain and discussed risk of opiates with respiratory failure. Family agreeable to improved pain control Review of Systems Review of Systems: All systems reviewed & are unremarkable except as noted in HPI and below ROS unobtainable: Yes unobtainable due to medical condition, unobtainable due to mental status and other (Patient non-verbal) Exam Narrative: CONSTITUTIONAL: Nonverbal, moaning intermittent, resistant to exam. HENMT: Atraumatic and normocephalic. Dry mucous membranes. NECK: No JVD. RESPIRATORY: Coarse BS, Tachypneic CARDIO: S1,S2 obscured by BS, no audible murmur. GI: Soft, NT, BS present x4 quads without any distention, PEG-Tube intact. : [place] noted. SKIN: right hip dressing in place. NEURO: CN symmetric to visual inspection. MS: no gross deformity to visual inspection. PSYCH: Seems oriented to person only. Objective Data Vital Signs Vital Signs: Vital Signs - 24 hr 04/02/24 10:00 04/02/24 11:00 04/02/24 11:57 Temperature 98.4 F Pulse Rate 98 95 85 Respiratory Rate 26 H Blood Pressure 128/75 Pulse Oximetry 90 94 Oxygen Delivery High Flow Therapy with Na Oxygen Flow Rate 45 Fraction of Inspired Oxygen 90 04/02/24 12:00 04/02/24 12:00 04/02/24 12:50 Temperature Pulse Rate 93 93 92 Respiratory Rate 22 H 22 H Blood Pressure Pulse Oximetry 95 Oxygen Delivery High Flow Therapy with Na Oxygen Flow Rate 45 Fraction of Inspired Oxygen 90 04/02/24 14:00 04/02/24 15:42 04/02/24 15:42 Temperature Pulse Rate 93 90 Respiratory Rate 22 H Blood Pressure Pulse Oximetry 92 Oxygen Delivery High Flow Therapy with Na Oxygen Flow Rate 45 Fraction of Inspired Oxygen 90 04/02/24 15:49 04/02/24 16:00 04/02/24 16:00 Temperature 99.7 F H Pulse Rate 91 78 93 Respiratory Rate 22 H 20 Blood Pressure 97/53 L Pulse Oximetry 98 Oxygen Delivery Oxygen Flow Rate Fraction of Inspired Oxygen 04/02/24 16:00 04/02/24 17:32 04/02/24 18:00 Temperature Pulse Rate 93 93 Respiratory Rate 22 H Blood Pressure Pulse Oximetry 95 94 Oxygen Delivery High Flow Therapy with Na High Flow Therapy with Na Oxygen Flow Rate 45 45 Fraction of Inspired Oxygen 90 100 04/02/24 19:59 04/02/24 20:00 04/02/24 20:00 Temperature 101.7 F H Pulse Rate 92 93 Respiratory Rate 22 H 26 H Blood Pressure 128/75 Pulse Oximetry 95 94 Oxygen Delivery High Flow Therapy with Na Oxygen Flow Rate 45 Fraction of Inspired Oxygen 85 04/02/24 20:00 04/02/24 20:05 04/02/24 20:11 Temperature Pulse Rate 93 93 Respiratory Rate 22 H Blood Pressure Pulse Oximetry 95 Oxygen Delivery High Flow Therapy with Na Oxygen Flow Rate 45 Fraction of Inspired Oxygen 100 04/02/24 20:56 04/02/24 21:50 04/02/24 22:00 Temperature 101.7 F H 99.7 F H Pulse Rate 85 Respiratory Rate Blood Pressure Pulse Oximetry Oxygen Delivery Oxygen Flow Rate Fraction of Inspired Oxygen 04/02/24 23:40 04/03/24 00:00 04/03/24 00:00 Temperature 99.5 F Pulse Rate 88 78 Respiratory Rate 28 H 22 H Blood Pressure 101/59 L Pulse Oximetry 91 92 Oxygen Delivery High Flow Therapy with Na Oxygen Flow Rate 45 Fraction of Inspired Oxygen 90 04/03/24 00:00 04/03/24 00:10 04/03/24 02:00 Temperature Pulse Rate 79 82 87 Respiratory Rate 22 H Blood Pressure Pulse Oximetry Oxygen Delivery Oxygen Flow Rate Fraction of Inspired Oxygen 04/03/24 03:51 04/03/24 04:00 04/03/24 04:00 Temperature Pulse Rate 90 91 Respiratory Rate 24 H Blood Pressure Pulse Oximetry 90 Oxygen Delivery High Flow Therapy with Na Oxygen Flow Rate 45 Fraction of Inspired Oxygen 100 04/03/24 04:05 04/03/24 04:06 04/03/24 04:15 Temperature 99.8 F H Pulse Rate 93 94 Respiratory Rate 26 H 28 H Blood Pressure 145/75 H Pulse Oximetry 90 93 Oxygen Delivery High Flow Therapy with Na Oxygen Flow Rate 45 Fraction of Inspired Oxygen 100 04/03/24 06:00 04/03/24 07:51 04/03/24 07:58 Temperature 98.7 F Pulse Rate 99 105 H Respiratory Rate 28 H Blood Pressure 131/76 Pulse Oximetry 93 94 Oxygen Delivery High Flow Therapy with Na Oxygen Flow Rate 45 Fraction of Inspired Oxygen 100 04/03/24 07:58 04/03/24 08:10 Temperature Pulse Rate 104 H 104 H Respiratory Rate 22 H 20 Blood Pressure Pulse Oximetry Oxygen Delivery Oxygen Flow Rate Fraction of Inspired Oxygen Intake/Output Intake/Output: Intake & Output 03/31/24 04/01/24 04/02/24 04/03/24 23:59 23:59 23:59 23:59 Intake Total 3310 1091 1375 896 Output Total 1800 1051 925 575 Balance 1510 40 450 321 Meds/Results Medications: Active Medications Generic Name Dose Route Start Last Admin Trade Name Freq PRN Reason Stop Dose Admin Acetaminophen 650 mg 03/24/24 22:31 04/02/24 20:56 Acetaminophen Elixir 325 Mg/10.15 Ml Udc FEED TUBE 650 mg Q4H PRN Administration Mild Pain (1-3) or Fever Albuterol/Ipratropium 3 ml 03/19/24 16:00 04/03/24 07:56 Ipratropium 0.5 Mg/Albuterol Sulfate 2.5 Mg Ampul.Neb 3 Ml INHALATION 3 ml Q4HRT MIRNA Administration Aspirin 81 mg 03/20/24 09:00 04/03/24 08:58 Aspirin 81 Mg Chewable Tablet FEED TUBE 81 mg DAILY MIRNA Administration Atorvastatin Calcium 20 mg 03/19/24 18:00 04/02/24 20:55 Atorvastatin 20 Mg Tablet FEED TUBE 20 mg QPM MIRNA Administration Bisacodyl 10 mg 03/18/24 22:33 Bisacodyl 10 Mg Suppository RECTAL DAILY PRN Constipation Bisacodyl 10 mg 03/21/24 09:00 04/03/24 08:58 Bisacodyl 10 Mg Suppository RECTAL 10 mg QAM MIRNA Administration Chlorhexidine Gluconate 15 ml 03/21/24 09:00 04/03/24 08:59 Chlorhexidine Gluconate 0.12% Oral Rinse 473 Ml Btl (*Bkc) SWISH/SPIT 15 ml BID MIRNA Administration Cyanocobalamin 1,000 mcg 03/19/24 09:00 04/03/24 08:58 Cyanocobalamin 1,000 Mcg Tablet FEED TUBE 1,000 mcg DAILY MIRNA Administration Docusate Sodium 100 mg 03/19/24 09:00 04/03/24 08:58 Docusate Sodium Liq 100 Mg/10 Ml Udc FEED TUBE 100 mg Q12HR MIRNA Administration Donepezil HCl 5 mg 03/19/24 21:00 04/02/24 20:55 Donepezil Hcl 5 Mg Tablet PO 5 mg HS MIRNA Administration Doxazosin Mesylate 1 mg 03/19/24 18:00 04/02/24 20:19 Doxazosin Mesylate 1 Mg Tablet FEED TUBE 1 mg QPM MIRNA Administration Fluticasone Propionate 2 spray 03/22/24 11:45 04/03/24 08:59 Fluticasone Propionate 0.05% Na Spr 16 Gm Btl (*Bkc) NASAL 2 spray QAM MIRNA Administration Heparin Sodium (Porcine) 5,000 units 03/19/24 09:00 04/03/24 08:58 Heparin Sodium 5,000 Units/Ml Vial SUB-Q 5,000 units Q12HR MIRNA Administration Hydroxyzine Pamoate 25 mg 03/18/24 22:45 04/03/24 08:58 Hydroxyzine Pamoate 25 Mg Capsule FEED TUBE 25 mg Q12HR MIRNA Administration Meropenem 1 gm in 100 mls @ 200 mls/hr 03/23/24 18:00 04/03/24 04:36 IVPB 04/07/24 23:59 200 mls/hr Q8H MIRNA Administration Ipratropium [place] 2 spray 03/22/24 13:00 04/03/24 09:00 Ipratropium Nasal [place] 0.03% 15 Ml Bottle NASAL 2 spray TID MIRNA Administration Loratadine 10 mg 03/18/24 22:40 03/24/24 09:04 Loratadine 10 Mg Tablet FEED TUBE 10 mg DAILY PRN Administration Congestion Magnesium Hydroxide 30 ml 03/18/24 22:33 04/02/24 20:56 Magnesium Hydroxide Susp 30 Ml Udc FEED TUBE 30 ml DAILY PRN Administration Constipation Memantine 10 mg 04/01/24 09:00 04/03/24 08:58 Memantine 10 Mg Tablet FEED TUBE 10 mg DAILY MIRNA Administration Morphine Sulfate 1 mg 03/31/24 17:39 04/03/24 04:35 Morphine Sulfate (*Crx) 2 Mg/Ml Inj IV PUSH 1 mg Q6H PRN Administration Pain Rated 6 or Greater Pantoprazole Sodium 40 mg 03/22/24 09:00 04/03/24 08:58 Pantoprazole Sodium Iv 40 Mg Vial IV PUSH 40 mg Q12HR MIRNA Administration Polyethylene Glycol 17 gm 04/02/24 09:00 04/03/24 08:58 Polyethylene Glycol 3350 17 Gm Powd.Pack PO 17 gm QAM MIRNA Administration Saccharomyces Boulardii 250 mg 03/19/24 09:00 04/03/24 08:58 Saccharomyces Boulardii 250 Mg Capsule FEED TUBE 250 mg BID MIRNA Administration Saliva Substitute 10 ml 03/20/24 13:00 04/03/24 09:00 Saliva Substitute Rinse 473 Ml Bottle PO 10 ml QID MIRNA Administration Timolol Maleate 1 drop 03/20/24 09:50 04/03/24 09:00 Timolol Maleate 0.5% Op Soln 5 Ml Bottle EACH EYE 1 drop Q12HR MIRNA Administration Radiology Results: ITS Impressions Chest CT 03/18/24 17:48 IMPRESSION: 1. Right-sided pneumonia with a posterior and lower lung predominance. 2. Material in the right middle lobe and right lower lobe bronchi, which may be mucous plugging or aspirated material. 3. Moderate emphysema. 4. Mild mediastinal lymphadenopathy, likely reactive. Abdomen Ultrasound 03/21/24 16:41 IMPRESSION: No significant abnormality Chest X-Ray 04/01/24 07:28 IMPRESSION: 1. Diffuse bilateral lung disease, more prominent than with interval progression on the right. Differential would include multifocal pneumonia and/or asymmetric pulmonary edema. Abdomen X-Ray 04/01/24 07:31 IMPRESSION: 1. 10 cm ball of stool at rectum suggestive of constipation with fecal impaction. Labs Labs: Laboratory Results - last 24 hr 04/02/24 04/02/24 04/02/24 12:00 17:32 23:31 POC Capillary Glucose 97 106 H 143 H 04/03/24 06:14 POC Capillary Glucose 124 H Quality VTE Prophylaxis VTE prophylaxis: pharmacologic ordered Hospitalist [facility] Advance Care Plan I have confirmed that the patient's Advanced Care Plan is present, code status is documented, or surrogate decision maker is listed in patient medical record.: Yes Medication Reconciliation I have utilized all available resources to obtain, update and review the patients current medications (includes all prescriptions, OTC, herbals, cannabis, and nutritional supplements).: Yes
--- NOTE | 2024-04-03 12:02 | PCNFU ---
Nutrition Follow-Up Complete: Severe Protein Calorie Malnutrition as related to inadequate protein energy intake a evidenced by significant weight loss of 13% (14 ibs) 4 months, severe subcutanoeous fat loss (orbital fat pads) and severe muscle wasting (temporalis, clavicle). Meet estimated nutritional needs - Goal is being met with tube feeding. Continue with same goal Goal: Pt current nutrition is Nepro @ 50 ml/h with 200 ml flushes q 4 hours. Prosource TF 1x per day Nutrition recommendation: No new nutrition recommendations. Continue current tube feeding orders. Agree with orders Last recorded weight is 79 kg. Up from 62.3 kg at admission Bowel Motility: +4 BMs 03/30/24 Labs Reviewed: No new labs today Meds Noted: Protonix, meropenem Skin: Stage 1 R hip Additional Notes: PEG tube. Nepro @ 50 ml/h provides 1980 kcal, 89 g protein, 800 ml free water. Prosource TF for additional 90 kcal and 20 g protein. 2060 kcal, 109 g protein, 2000 ml free water per day totals with flushes. Meeting needs with tube feeding @ 26 kcal/kg and 1.4 g protein/kg. Tube feeding is adequate for needs Continue with same orders. Pt's family deciding on hospice vs trach. Will monitor weight, labs, skin, meds, tube feedings every Saturday and Saturday.
--- NOTE | 2024-04-03 13:09 | P.CONS_ITS ---
HPI Data of Consult Date/Time: 03/29/2024 1800 Requesting Physician: Suyapa Camarena APRN Primary Care Provider: Bharathi Drake MD Consult Narrative Narrative: Ulysses Lane is a 79 year old male [facility] Past Medical History Medical History (Updated 03/23/24 @ 16:02 by Tg Yu APRN) Acute on chronic anemia Non-STEMI (non-ST elevated myocardial infarction) Dyslipidemia COPD (chronic obstructive pulmonary disease) Vasomotor rhinitis Dementia Hx of malignant neoplasm of prostate Dysphagia causing pulmonary aspiration with swallowing Status post G-tube placement October 2023 Malnutrition Acute non-ST elevation myocardial infarction (NSTEMI) (03/2023) PVD (peripheral vascular disease) Erectile dysfunction Unspecified iridocyclitis Primary open-angle glaucoma, bilateral, stage unspecified Chronic kidney disease, stage 3 (moderate) Essential (primary) hypertension Surgical History Surgical History (Updated 03/18/24 @ 22:27 by Nissa Greer DO) History of colonoscopy with polypectomy Family History Family History Father Carcinoma of colon Patient's father is Family history of malignant neoplasm Mother Patient's mother is Family history unknown Social History Social History (Updated 03/18/24 @ 22:32 by Nissa Greer DO) Social History: Code status: Full code Healthcare power of commonwealth attorney: Zoe Lane (sister) Smoking packs per day: 1 Smoking cigarettes per day: 20.0 Years smoked: 60 Smoking pack-years: 60.00 Smoking status: Former smoker Tobacco type: cigarettes Second hand tobacco smoke exposure: No Alcohol intake: never Alcohol use details: social Substance use: never Substance use type: does not use Lack of Transportation: YES Lack of Food: Never True Current Housing: I Have Housing Concerned About Future Housing: No Difficulty Paying Gas/Electric Bills: No Difficulty Paying for Meds: No Currently Unemployed: No Education: High School Diploma/GED Difficulty w/ Childcare or Family Care: No Living arrangements: with family Spiritual care concerns: No Meds Home Medications and Allergies Home Medications ?Medication ?Instructions ?Recorded ?Confirmed ?Type cyanocobalamin (vitamin B-12) 1,000 mcg feeding tube DAILY 04/03/21 03/18/24 History 1,000 mcg tablet memantine 10 mg tablet 10 mg feeding tube DAILY 04/03/21 03/18/24 History aspirin 81 mg tablet,delayed 81 mg feeding tube DAILY 06/14/22 03/18/24 History release (Adult Aspirin Regimen) cetirizine 10 mg tablet 10 mg feeding tube DAILY PRN 06/14/22 03/18/24 History Congestion ipratropium bromide 21 mcg (0.03 See Rx Instructions .Route 06/14/22 03/18/24 Rx %) nasal spray .COMPLEX #90 mL thiamine HCl (vitamin B1) 250 mg 250 mg PO DAILY 03/28/23 03/18/24 History tablet betaxolol 0.5 % eye drops 1 drp EACH EYE BID 11/07/23 03/18/24 History bisacodyl 10 mg rectal suppository 10 mg RECTAL DAILY PRN Constipation 11/07/23 03/18/24 History magnesium citrate (Citroma oral 300 ml feeding tube DAILY PRN 11/07/23 03/18/24 History solution) Constipation magnesium hydroxide 400 mg/5 mL 30 ml feeding tube DAILY PRN 11/07/23 03/18/24 History oral suspension (Milk of Magnesia) Constipation sodium phosphates 19 gram-7 118 ml RECTAL ONCE PRN Constipation 11/07/23 03/18/24 History gram/118 mL enema (Fleet Enema) docusate sodium 50 mg/5 mL oral 100 mg (10 mL) feeding tube Q12HR 11/14/23 03/18/24 Rx liquid #1,000 mL Saccharomyces boulardii 250 mg 250 mg feeding tube BID 03/18/24 03/18/24 History capsule acetaminophen 325 mg capsule 650 mg feeding tube Q4H PRN fever 03/18/24 03/18/24 History or pain amino acids-protein hydrolysate 15 See Rx Instructions feeding tube 03/18/24 03/18/24 History gram-100 kcal/30 mL oral liquid DAILY (Pro-Stat Sugar Free) atorvastatin 20 mg tablet 20 mg feeding tube QPM 03/18/24 03/18/24 History ceftriaxone 1 gram solution for 1 g IM Q24H pneumonitis 03/18/24 03/18/24 History injection cholecalciferol (vitamin D3) 1,250 50,000 unit feeding tube 2XW 03/18/24 03/18/24 History mcg (50,000 unit) tablet donepezil 5 mg tablet (Aricept) 5 mg feeding tube HS 03/18/24 03/18/24 History doxazosin 1 mg tablet 1 mg feeding tube QPM 03/18/24 03/18/24 History hydroxyzine pamoate 25 mg capsule 25 mg feeding tube Q12H 03/18/24 03/18/24 History ipratropium 0.5 mg-albuterol 3 mg 3 ml inhalation Q6H PRN shortness 03/18/24 03/18/24 History (2.5 mg base)/3 mL nebulization of breath or wheezing soln lidocaine (PF) 10 mg/mL (1 %) 3 ml IM HS give with Rocephin 03/18/24 03/18/24 History injection solution thiamine HCl (vitamin B1) 100 mg 150 mg feeding tube DAILY 03/18/24 03/18/24 History tablet Allergies Allergy/AdvReac Type Severity Reaction Status Date / Time No Known Allergies Allergy Unknown Verified 03/18/24 16:16 Vital Signs Vital Signs - 24 hr 04/02/24 14:00 04/02/24 15:42 04/02/24 15:42 Temperature Pulse Rate 93 90 Respiratory Rate 22 H Blood Pressure Pulse Oximetry 92 Oxygen Delivery High Flow Therapy with Na Oxygen Flow Rate 45 Fraction of Inspired Oxygen 90 04/02/24 15:49 04/02/24 16:00 04/02/24 16:00 Temperature 37.6 C H Pulse Rate 91 78 93 Respiratory Rate 22 H 20 Blood Pressure 97/53 L Pulse Oximetry 98 Oxygen Delivery Oxygen Flow Rate Fraction of Inspired Oxygen 04/02/24 16:00 04/02/24 17:32 04/02/24 18:00 Temperature Pulse Rate 93 93 Respiratory Rate 22 H Blood Pressure Pulse Oximetry 95 94 Oxygen Delivery High Flow Therapy with Na High Flow Therapy with Na Oxygen Flow Rate 45 45 Fraction of Inspired Oxygen 90 100 04/02/24 19:59 04/02/24 20:00 04/02/24 20:00 Temperature 38.7 C H Pulse Rate 92 93 Respiratory Rate 22 H 26 H Blood Pressure 128/75 Pulse Oximetry 95 94 Oxygen Delivery High Flow Therapy with Na Oxygen Flow Rate 45 Fraction of Inspired Oxygen 85 04/02/24 20:00 04/02/24 20:05 04/02/24 20:11 Temperature Pulse Rate 93 93 Respiratory Rate 22 H Blood Pressure Pulse Oximetry 95 Oxygen Delivery High Flow Therapy with Na Oxygen Flow Rate 45 Fraction of Inspired Oxygen 100 04/02/24 20:56 04/02/24 21:50 04/02/24 22:00 Temperature 38.7 C H 37.6 C H Pulse Rate 85 Respiratory Rate Blood Pressure Pulse Oximetry Oxygen Delivery Oxygen Flow Rate Fraction of Inspired Oxygen 04/02/24 23:40 04/03/24 00:00 04/03/24 00:00 Temperature 37.5 C Pulse Rate 88 78 Respiratory Rate 28 H 22 H Blood Pressure 101/59 L Pulse Oximetry 91 92 Oxygen Delivery High Flow Therapy with Na Oxygen Flow Rate 45 Fraction of Inspired Oxygen 90 04/03/24 00:00 04/03/24 00:10 04/03/24 02:00 Temperature Pulse Rate 79 82 87 Respiratory Rate 22 H Blood Pressure Pulse Oximetry Oxygen Delivery Oxygen Flow Rate Fraction of Inspired Oxygen 04/03/24 03:51 04/03/24 04:00 04/03/24 04:00 Temperature Pulse Rate 90 91 Respiratory Rate 24 H Blood Pressure Pulse Oximetry 90 Oxygen Delivery High Flow Therapy with Na Oxygen Flow Rate 45 Fraction of Inspired Oxygen 100 04/03/24 04:05 04/03/24 04:06 04/03/24 04:15 Temperature 37.7 C H Pulse Rate 93 94 Respiratory Rate 26 H 28 H Blood Pressure 145/75 H Pulse Oximetry 90 93 Oxygen Delivery High Flow Therapy with Na Oxygen Flow Rate 45 Fraction of Inspired Oxygen 100 04/03/24 06:00 04/03/24 07:51 04/03/24 07:58 Temperature 37.1 C Pulse Rate 99 105 H Respiratory Rate 28 H Blood Pressure 131/76 Pulse Oximetry 93 94 Oxygen Delivery High Flow Therapy with Na Oxygen Flow Rate 45 Fraction of Inspired Oxygen 100 04/03/24 07:58 04/03/24 08:00 04/03/24 08:00 Temperature Pulse Rate 104 H 104 H Respiratory Rate 22 H Blood Pressure Pulse Oximetry 94 Oxygen Delivery High Flow Therapy with Na Oxygen Flow Rate 45 Fraction of Inspired Oxygen 100 04/03/24 08:10 04/03/24 10:00 04/03/24 11:21 Temperature Pulse Rate 104 H 112 H 112 H Respiratory Rate 20 26 H Blood Pressure Pulse Oximetry 93 Oxygen Delivery High Flow Therapy with Na Oxygen Flow Rate 45 Fraction of Inspired Oxygen 100 04/03/24 11:21 04/03/24 11:35 04/03/24 11:47 Temperature 36.8 C Pulse Rate 112 H 112 H 113 H Respiratory Rate 26 H 26 H 29 H Blood Pressure 105/62 Pulse Oximetry 95 Oxygen Delivery Oxygen Flow Rate Fraction of Inspired Oxygen 04/03/24 12:00 Temperature Pulse Rate Respiratory Rate Blood Pressure Pulse Oximetry 94 Oxygen Delivery High Flow Therapy with Na Oxygen Flow Rate 45 Fraction of Inspired Oxygen 100 Results Labs 04/02/24 04:02 04/02/24 04:02
--- NOTE | 2024-04-03 17:12 | P.DS_ITS ---
DS: Admitting Diagnosis Discharge Date 04/03/24 Admitting Diagnosis Acute Respiratory Failure Aspiration Pneumonia Altered mental status DS: Discharge Diagnosis Discharge Diagnosis (1) Malnutrition: Code(s): E46 - Unspecified protein-calorie malnutrition Status: Acute (2) Chronic kidney disease, stage 3 (moderate): Qualifiers: Chronic kidney disease stage 3 subtype: unspecified whether 3a or 3b Qualified Code(s): N18.30 - Chronic kidney disease, stage 3 unspecified Code(s): N18.3 - Chronic kidney disease, stage 3 (moderate) Status: Acute (3) Aspiration pneumonia: Qualifiers: Aspiration pneumonia type: unspecified Laterality: right Lung location: unspecified part of lung Qualified Code(s): J69.0 - Pneumonitis due to inhalation of food and vomit Code(s): J69.0 - Pneumonitis due to inhalation of food and vomit Status: Acute (4) Acute hypoxemic respiratory failure: Code(s): J96.01 - Acute respiratory failure with hypoxia Status: Acute (5) Acute encephalopathy: Code(s): G93.40 - Encephalopathy, unspecified Status: Acute (6) AMS (altered mental status): Qualifiers: Altered mental status type: unspecified Qualified Code(s): R41.82 - Altered mental status, unspecified Code(s): R41.82 - Altered mental status, unspecified Status: Chronic DS: Summary Hospital Course Reason for hospitalization: Copied from [facility] 03/18: 79-year-old male with past medical history of dysphagia with aspiration subsequent G-tube placement October 2023, dementia, coronary artery disease and chronic kidney disease who presented to the hospital from [facility] via EMS due to increased work of breathing and altered mental status. Patient does have history of dementia but is usually confused and and conversant. At the detention patient evidently had an episode of emesis and detention staff had difficulty handling the patient's secretions. On arrival to the ER patient had copious secretions for which the patient was having difficulty coughing. He was deep suctioned and had dramatic improvement in his status. However the patient was still requiring 6 L of supplemental oxygen. Her at the time of his discharge from the hospital October he had been weaned from supplemental oxygen. It does not appear that he is on oxygen at the detention. Patient evidently had temperature of 100.3? at the detention. Patient does open his eyes when his name is called but does not follow commands. He actively resists when I am trying to evaluate his eyes and closes his eyes tightly. He does withdrawal to painful stimuli and moans even when there is no external stimuli. Due to dementia patient is unable to provide any meaningful history thus H&P/HPI was obtained from review of ER records, ER physician report, EMS report and past medical records. Hospital Course: Ulysses Lane is a 79 year old man admitted for evaluation of altered mental status, treated for aspiration pneumonia. Despite multiple antibiotics, patient had recurrent aspiration in the setting of advanced dementia. He continued to have increasing oxygen requirements and discussed comfort care and hospice options with family since he continued to decline despite agressive pulmonary hygiene with NT suctioning and 100% FiO2, as well as broad spectrum antibiotics. Pulmonary followed during admission. He was discharged to hospice 04/03. Status at Discharge Cognitive/behavioral status at discharge: Oriented x0 Time Spent with Patient Time attestation: Total time spent providing and/or coordinating discharge services: Exam Narrative: CONSTITUTIONAL: Nonverbal, moaning intermittent HENMT: Atraumatic and normocephalic. Dry mucous membranes. NECK: No JVD. RESPIRATORY: Coarse BS, Tachypneic CARDIO: S1,S2 obscured by BS, no audible murmur. GI: Soft, NT, BS present x4 quads without any distention, PEG-Tube intact. : Woodson noted. SKIN: right hip dressing in place. NEURO: CN symmetric to visual inspection. MS: no gross deformity to visual inspection. PSYCH: Seems oriented to person only. DS: Data Data Completed and Pending Labs on day of discharge: Labs from last 24 hours 04/03/24 04/02/24 04/02/24 06:14 23:31 17:32 POC Capillary Glucose 124 H 143 H 106 H Discharge Plan Discharge Attending physician on discharge: Suyapa Camarena Consulting providers: Guido Garcia; Clovis Holland; Elenita Gallardo; Yodit Alarcon Discharging Clinician: Suyapa Camarena Anticipated Discharge Date/Time: 04/03/24 17:04 Patient Disposition: Hospice - Medical Facility Activity: other - see discharge instructions Diet: tube feeding Discharge Instructions: Hospice to continue care Patient Language: Turkish Stand Alone Forms: General Discharge Information Discharge Medications: Continued bisacodyl 10 mg Suppository 10 mg RECTAL DAILY PRN (Reason: Constipation) Rx Instructions: if no results from MOM betaxolol 0.5 % drops 1 drp EACH EYE BID hydroxyzine pamoate 25 mg capsule 25 mg feeding tube Q12H ipratropium-albuterol 0.5 mg-3 mg(2.5 mg base)/3 mL solution for nebulization 3 ml INHALATION Q6H PRN (Reason: shortness of breath or wheezing) ipratropium bromide 21 mcg (0.03 %) spray,non-aerosol See Rx Instructions .ROUTE .COMPLEX Qty: 90 0RF Dose Instruction: USE 2 SPRAYS IN EACH NOSTRIL THREE TIMES DAILY Rx Instructions: USE 2 SPRAYS IN EACH NOSTRIL THREE TIMES DAILY Discontinued memantine 10 mg tablet 10 mg feeding tube DAILY cyanocobalamin (vitamin B-12) 1,000 mcg tablet 1,000 mcg feeding tube DAILY cetirizine 10 mg tablet 10 mg feeding tube DAILY PRN (Reason: Congestion) aspirin [Adult Aspirin Regimen] 81 mg tablet,delayed release (DR/EC) 81 mg feeding tube DAILY magnesium hydroxide [Milk of Magnesia] 400 mg/5 mL Suspension 30 ml feeding tube DAILY PRN (Reason: Constipation) Fleet Enema 19-7 gram/118 mL Enema 118 ml RECTAL ONCE PRN (Reason: Constipation) Rx Instructions: 1 application rectally as needed for constipation, if no results 1 day after suppository. magnesium citrate [Citroma] Solution 300 ml feeding tube DAILY PRN (Reason: Constipation) Rx Instructions: give as needed for constipation in am if no results after enema. if no results within 1 hour of completion of bowel protocol, contact . docusate sodium 50 mg/5 mL Liquid 100 mg feeding tube Q12HR Qty: 1000 0RF acetaminophen 325 mg capsule 650 mg feeding tube Q4H PRN (Reason: fever or pain) donepezil [Aricept] 5 mg tablet 5 mg feeding tube HS ceftriaxone 1 gram recon soln 1 g IM Q24H doxazosin 1 mg tablet 1 mg feeding tube QPM lidocaine (PF) 10 mg/mL (1 %) solution 3 ml IM HS Pro-Stat Sugar Free 15-100 gram-kcal/30 mL liquid See Rx Instructions feeding tube DAILY Rx Instructions: 30ml via feeding tube daily; Saccharomyces boulardii 250 mg capsule 250 mg feeding tube BID thiamine HCl (vitamin B1) 100 mg tablet 150 mg feeding tube DAILY cholecalciferol (vitamin D3) 1,250 mcg (50,000 unit) tablet 50,000 unit feeding tube 2XW Patient Comments: and Saturday atorvastatin 20 mg tablet 20 mg feeding tube QPM thiamine HCl (vitamin B1) 250 mg Tablet 250 mg PO DAILY Date of admission: 03/19/24 07:33 Primary Care Provider: Bharathi Drake Admitting Provider: Oksana Brooks Attending physician on admission: Suyapa Camarena Condition: Serious Hospitalist MIPS Heart Failure (Exclusion) Patient has history of Heart Transplant or Left Ventricular Assistive Device?: Yes IF YES, STOP HERE Heart Failure (Qualifier) Patient has current or prior documentation of LVEF less than or equal to 40%, or mod/servere depressed LVSF?: Yes IF NO, STOP HERE If Yes, Heart Failure (Qualifier) Patient was prescribed or already taking an Angiotensin-Converting Enzyme (THEODORA) Inhibitor, or Antiotensin Receptor Rosalind (ARB): No Patient was prescribed or already taking bisoprolol, carvedilol, or sustained release metoprolol succinate: No If Medications not prescribed/taking Reason patient not prescribed/taking THEODORA or ARB: Patient reasons: pt declined or other pt reason (Discharged to Hospice) Reason patient not prescribed/taking bisoprolol, carvedilol, or sustained realease metoprolol succinate: Patient reasons: pt declined or other pt reason (Hospice)
== END 2024-04-03 17:07 | disposition hospice, inpatient (51) | DRG 871 ==
LOC: ANHED 16:03 → ANH2MED 18:56 → ANHIMU 03-30 18:32
PROVIDERS: Internal Medicine; Internal Medicine Pulmonary Disease; Nurse Practitioner Adult Health; Nurse Practitioner Family; Physician Assistant; Admitting Provider Hospitalist; Emergency Provider Emergency Medicine; PCP Family Medicine; Visit Provider Nurse Practitioner Acute Care
DX: A41.9 Sepsis, unspecified organism (principal); J18.9 Pneumonia, unspecified organism; J69.0 Pneumonitis due to inhalation of food and vomit; J96.01 Acute respiratory failure with hypoxia; E43 Unspecified severe protein-calorie malnutrition; G93.40 Encephalopathy, unspecified; J44.0 Chronic obstructive pulmonary disease with (acute) lower respiratory infection; I12.9 Hypertensive chronic kidney disease with stage 1 through stage 4 chronic kidney disease, or unspecified chronic kidney disease; N18.30 Chronic kidney disease, stage 3 unspecified; R13.10 Dysphagia, unspecified; I25.10 Atherosclerotic heart disease of native coronary artery without angina pectoris; D64.9 Anemia, unspecified; E78.5 Hyperlipidemia, unspecified; H40.1130 Primary open-angle glaucoma, bilateral, stage unspecified; F03.90 Unspecified dementia, unspecified severity, without behavioral disturbance, psychotic disturbance, mood disturbance, and anxiety; E87.6 Hypokalemia; R74.01 Elevation of levels of liver transaminase levels; I73.9 Peripheral vascular disease, unspecified; Z93.1 Gastrostomy status; I25.2 Old myocardial infarction; Z85.46 Personal history of malignant neoplasm of prostate; Z68.23 Body mass index [BMI] 23.0-23.9, adult; Z79.82 Long term (current) use of aspirin; Z87.891 Personal history of nicotine dependence; Z86.73 Personal history of transient ischemic attack (TIA), and cerebral infarction without residual deficits; Z20.822 Contact with and (suspected) exposure to COVID-19
CPT/HCPCS: 36415; 71045; 71250; 74018; 76700; 80048; 80053; 80076; 80202; 81001; 82565; 82728; 82948; 83540; 83550; 83615; 83690; 83735; 84145; 85025; 85027; 85046; 85652; 86140; 86703; 86803; 87040; 87086; 87340; 87637; 87641; 93005; 94640; 96365; 96366; 96367; 99212; 99285; A4248; A9270; G0378; G0432; G0463; J0295; J0456; J0696; J1644; J2185; J2270; J2405; J2470; J3370; J7030

== ENCOUNTER 2024-04-03 17:08 | HOS | payer OTHER, MEDICARE, MEDICAID, SELFPAY ==
[2024-04-03 18:07] VITALS: BMI 23.6
--- NOTE | 2024-04-03 18:40 | ADMGEN ---
This patient, Ulysses Lane, was admitted to IMU Room 214-01 at 1708. Patient/family oriented to hospital policies and general routines including ID bracelet, bed and alarms, visiting hours, pain management, procedures, bathroom and other care routines, personal items, smoking policy, room service/diet, and visiting hours. Information on how to activate the Rapid Response Team has been discussed. Patient/Family are encouraged to report perceived risks to care and to ask questions if they do not understand what they are told or what they should do.
[2024-04-03 18:56] VITALS: PULSE 100; RESP 20
[2024-04-03] MEDS: MORPHINE 50 MG/NS 100ML (*CRX) 50 MG/100 ML BAG IV CONT (18:56)
[2024-04-03] MEDS: LORazepam INJ (*CRX) 2 MG/ML VIAL 1 MG IV PUSH (18:57)
[2024-04-03] MEDS: MORPHINE SULFATE (*CRX) 2 MG/ML INJ IV PUSH ×2 (18:57→21:19)
[2024-04-03 20:10] VITALS: PULSE 107; RESP 48; O2SAT 35
[2024-04-03 20:24] VITALS: BP 141/84; PULSE 106; RESP 36; TEMP 36.7
[2024-04-03] MEDS: GLYCOPYRROLATE INJ (*SP) 0.2 MG/ML VIAL 0.1 MG IV PUSH (21:17)
--- NOTE | 2024-04-03 21:49 | PC.NURSE ---
This patient, Ulysses Lane, was transferred to room 318 on 04/03/24 at 2128 under [facility] comfort care. Personal belongings sent with patient. Report given to TAPAN Desai. Appropriate documentation sent with patient.
--- NOTE | 2024-04-03 22:36 | ADMGEN ---
This patient, Ulysses Lane, was a transfer to Med Surg Room 318-01. Pt. is resting comfortably.
[2024-04-04] MEDS: LORazepam INJ (*CRX) 2 MG/ML VIAL 1 MG IV PUSH ×2 (00:51→08:41)
[2024-04-04] MEDS: MORPHINE SULFATE (*CRX) 2 MG/ML INJ IV PUSH ×2 (02:16→08:40)
[2024-04-04] MEDS: GLYCOPYRROLATE INJ (*SP) 0.2 MG/ML VIAL 0.1 MG IV PUSH (05:21)
[2024-04-04 05:49] VITALS: O2SAT 93
--- NOTE | 2024-04-04 09:11 | PCDIET ---
Pt now on hospice care. No further nutrition recommendations.
--- NOTE | 2024-04-04 10:48 | P.HP_ITS ---
H&P: HPI History of Present Illness Date/Time: 04/04/24 10:48 Chief Complaint: Uncontrolled dyspnea Narrative: Unfortunate 71-year-old gentleman with chronic aspiration and pneumonia was admitted to inpatient hospice service April 03 due to increasing oxygen to her requirements and worsening dyspnea. Starting on continues IV morphine he has remained comfortable. Review of Systems Review of Systems: ROS unobtainable: Yes unobtainable due to medical condition PMFSH Past Medical History Medical History Acute on chronic anemia Non-STEMI (non-ST elevated myocardial infarction) Dyslipidemia COPD (chronic obstructive pulmonary disease) Vasomotor rhinitis Dementia Hx of malignant neoplasm of prostate Dysphagia causing pulmonary aspiration with swallowing Status post G-tube placement October 2023 Malnutrition Acute non-ST elevation myocardial infarction (NSTEMI) (03/2023) PVD (peripheral vascular disease) Erectile dysfunction Unspecified iridocyclitis Primary open-angle glaucoma, bilateral, stage unspecified Chronic kidney disease, stage 3 (moderate) Essential (primary) hypertension Surgical History Surgical History History of colonoscopy with polypectomy Family History Family History Father Carcinoma of colon Patient's father is Family history of malignant neoplasm Mother Patient's mother is Family history unknown Social History Social History (Updated 04/04/24 @ 10:49 by Christoph Macias MD) Social History: Code status: DNR Healthcare power of deputy prosecuting attorney: Zoe Lane (sister) Smoking packs per day: 1 Smoking cigarettes per day: 20.0 Years smoked: 60 Smoking pack-years: 60.00 Smoking status: Former smoker Second hand tobacco smoke exposure: No Alcohol intake: never Alcohol use details: social Substance use: never Substance use type: does not use Lack of Transportation: YES Lack of Food: Never True Current Housing: I Have Housing Concerned About Future Housing: No Difficulty Paying Gas/Electric Bills: No Difficulty Paying for Meds: No Currently Unemployed: No Education: High School Diploma/GED Difficulty w/ Childcare or Family Care: No Living arrangements: with family Spiritual care concerns: No Meds Home Medications and Allergies Home Medications ?Medication ?Instructions ?Recorded ?Confirmed ?Type No Home Medications 04/03/24 04/03/24 History Allergies Allergy/AdvReac Type Severity Reaction Status Date / Time No Known Allergies Allergy Unknown Verified 03/18/24 16:16 Vital Signs Vital Signs - 24 hr 04/03/24 18:56 04/03/24 20:10 04/03/24 20:24 Temperature 98.1 F Pulse Rate 100 107 H 106 H Respiratory Rate 20 48 H 36 H Blood Pressure 141/84 H Pulse Oximetry 35 L Oxygen Delivery High Flow Therapy with Na Oxygen Flow Rate 10 Fraction of Inspired Oxygen 04/04/24 05:49 Temperature Pulse Rate Respiratory Rate Blood Pressure Pulse Oximetry 93 Oxygen Delivery High Flow Nasal Cannula Oxygen Flow Rate 10 Fraction of Inspired Oxygen 93 Exam Narrative: Unresponsive to verbal or tactile stimuli Neck no JVD. Stoma present. Chest diminished breath sounds throughout. Heart regular rate distant S1 and S2. Extremities no edema. Abdomen scaphoid with hypoactive bowel sounds. Musculoskeletal no gross deformity to visual inspection. Neurologic cranial nerves symmetric to inspection. Assessment and Plan Assessment and plan (1) Hospice care: Code(s): Z51.5 - Encounter for palliative care Status: Acute Assessment and Plan: * Meets inpatient hospice criteria due to requiring continuous IV morphine for control of dyspnea and discomfort. * PRN Palliative regimen ordered. (2) Acute hypoxemic respiratory failure: Code(s): J96.01 - Acute respiratory failure with hypoxia Status: Acute (3) Aspiration pneumonia: Qualifiers: Aspiration pneumonia type: unspecified Laterality: right Lung location: unspecified part of lung Qualified Code(s): J69.0 - Pneumonitis due to inhalation of food and vomit Code(s): J69.0 - Pneumonitis due to inhalation of food and vomit Status: Acute (4) COPD (chronic obstructive pulmonary disease): Qualifiers: COPD type: COPD with acute lower respiratory infection Qualified Code(s): J44.0 - Chronic obstructive pulmonary disease with (acute) lower respiratory infection Code(s): J44.9 - Chronic obstructive pulmonary disease, unspecified Status: Acute (5) History of dementia: Code(s): Z86.59 - Personal history of other mental and behavioral disorders Status: Chronic (6) Acute encephalopathy: Code(s): G93.40 - Encephalopathy, unspecified Status: Acute (7) Chronic kidney disease, stage 3 (moderate): Qualifiers: Chronic kidney disease stage 3 subtype: unspecified whether 3a or 3b Qualified Code(s): N18.30 - Chronic kidney disease, stage 3 unspecified Code(s): N18.3 - Chronic kidney disease, stage 3 (moderate) Status: Acute (8) Essential (primary) hypertension: Code(s): I10 - Essential (primary) hypertension Status: Acute
--- NOTE | 2024-04-04 11:45 | PC.NURSE ---
This RN saw and examined patient. 1 PRN dose of Ativan and Morphine given earlier this AM (see MAR). log turner came and discontinued patient's comfort oxygen. This RN and [facility] charge aide observed patient at 1145 with no breathing or pulse. TOD called at that time.
--- NOTE | 2024-04-05 10:14 | PM.DDS ---
Discharge Summary Date and Time Date of : 04/04/24 Time of : 11:45 Provider Pronounced By: 2 RNs Name of First RN That Pronounced: Nola Sherman RN Name of Second RN That Pronounced: Marzena Valentin RN Probable Cause of Probable Cause of : Respiratory failure secondary to pneumonia secondary to aspiration Summary Hospital Course: Admitted to inpatient hospice service due to uncontrolled dyspnea. Medications were titrated to comfort. Mr. Lane peacefully. Additional Data Confirmation of as documented by pronouncing clinician: Pupillary Reflex, Palpable Pulses, Response to Stimuli, Heart Tones and Breath Sounds Name of Provider Notified: Gilberto Time Provider Notified: 12:00 Provider Requests Autopsy: No Family Requests Autopsy: No Quality Assurance Engineer Notified: Yes Date [facility] Notified of : 04/04/24 Time [facility] Notified of : 11:56
== END 2024-04-04 17:44 | disposition expired | DRG 951 ==
LOC: ANHIMU 17:19 → ANH3MEDSUR 22:24
PROVIDERS: Admitting Provider Internal Medicine; PCP Family Medicine; Visit Provider Internal Medicine
DX: Z51.5 Encounter for palliative care (principal); J69.0 Pneumonitis due to inhalation of food and vomit; J96.01 Acute respiratory failure with hypoxia; E46 Unspecified protein-calorie malnutrition; G93.40 Encephalopathy, unspecified; I12.9 Hypertensive chronic kidney disease with stage 1 through stage 4 chronic kidney disease, or unspecified chronic kidney disease; N18.30 Chronic kidney disease, stage 3 unspecified; J44.9 Chronic obstructive pulmonary disease, unspecified
CPT/HCPCS: A9270; J1596; J2060; J2270